=== PATIENT | male | born 1970 | race Caucasian/White ===

== ENCOUNTER 2018-05-26 10:43 | Emergency (ER) | payer OTHER, SELFPAY ==
[2018-05-26 10:44] VITALS: BP 143/69; PULSE 69; RESP 18; TEMP 36.6; O2SAT 96; BMI 44.2
--- NOTE | 2018-05-26 12:25 | RAD_ITS ---
STUDY: X-RAY - LEFT HUMERUS REASON FOR EXAM: Male, 47 years old. Shoulder pain following a fall. TECHNIQUE: 4 view(s) of the humerus. COMPARISON: None. FINDINGS: There is a nondisplaced impacted fracture of the surgical neck of the proximal humerus. Soft tissue swelling. RAD/Humerus min 2 Views IMPRESSION: There is a nondisplaced impacted fracture of the surgical neck of the proximal humerus. Electronically Signed: George Duncan MD at 13:29 EDT Tel [phone], Service support ,
--- NOTE | 2018-05-26 13:05 | ED.VISSUMM ---
- ER Visit Summary Date of Service: 05/26/18 Chief Complaint: Shoulder injury History of Present Illness: The patient is a 47 M who states that he was at work today when he tripped and fell. States that he was arms out and injured his left shoulder. He denies any other injuries. Patient is right-handed. EMS administered fentanyl and sling and swath. Physical Examination: Afebrile vital signs are stable Gen: Well-nourished well-developed Head: Normocephalic atraumatic Eyes: Perrl EOMI ENT: TMs clear no rhinorrhea moist mucous membranes Neck: Supple no lymphadenopathy no JVD nontender CVS: Regular rate rhythm no murmurs normal S1-S2 Respiratory: No distress clear to auscultation bilaterally chest nontender Abdomen: Soft nontender nondistended normal bowel sounds no masses Back: Nontender Extremity: Left shoulder shows limited range of motion and tenderness to. No obvious dislocation. He is neurovascular intact distally. Skin: Normal color no rash Neuro: alert orientated ?3 CN II-XII intact normal strength sensation reflexes gait cerebellar Psych: Normal affect normal mood Test Results: X-rays revealed a proximal humerus fracture Emergency Department Course and Treatment: She received oxycodone and sling. He will be referred to no [facility] as he does not have one. Dr. Noel on-call today. Impression: 1. Closed left proximal humerus fracture This note was generated with [employer] dictation software. It may contain incorrect words, spelling, and punctuation that were not noted in review of the chart prior to signing ED Disposition - Plan for ED Patient: Disposition: Home or Assisted Living Chief Complaint: Upper Extremity Injury Instructions: ED Fx Shoulder Prescriptions: Oxycodone [Oxyir] 5 - 10 mg PO Q6H PRN PRN 4 Days #20 tab PRN Reason: Pain Referrals: Slime Noel DO [STAFF PHYSICIAN] - (call today to schedule appointment)
--- NOTE | 2018-05-26 13:14 | ED.DCSUM_ITS ---
- ER Visit Summary Date of Service: 05/26/18 Chief Complaint: Shoulder injury History of Present Illness: The patient is a 47 M who states that he was at work today when he tripped and fell. States that he was arms out and injured his left shoulder. He denies any other injuries. Patient is right-handed. EMS administered fentanyl and sling and swath. Physical Examination: Afebrile vital signs are stable Gen: Well-nourished well-developed Head: Normocephalic atraumatic Eyes: Perrl EOMI ENT: TMs clear no rhinorrhea moist mucous membranes Neck: Supple no lymphadenopathy no JVD nontender CVS: Regular rate rhythm no murmurs normal S1-S2 Respiratory: No distress clear to auscultation bilaterally chest nontender Abdomen: Soft nontender nondistended normal bowel sounds no masses Back: Nontender Extremity: Left shoulder shows limited range of motion and tenderness to. No obvious dislocation. He is neurovascular intact distally. Skin: Normal color no rash Neuro: alert orientated ?3 CN II-XII intact normal strength sensation reflexes gait cerebellar Psych: Normal affect normal mood Test Results: X-rays revealed a proximal humerus fracture Emergency Department Course and Treatment: She received oxycodone and sling. He will be referred to no [facility] as he does not have one. Dr. Noel on-call today. Impression: 1. Closed left proximal humerus fracture This note was generated with [employer] dictation software. It may contain incorrect words, spelling, and punctuation that were not noted in review of the chart prior to signing ED Disposition - Plan for ED Patient: Disposition: Home or Assisted Living Chief Complaint: Upper Extremity Injury Instructions: ED Fx Shoulder Prescriptions: Oxycodone [Oxyir] 5 - 10 mg PO Q6H PRN PRN 4 Days #20 tab PRN Reason: Pain Referrals: Slime Noel DO [STAFF PHYSICIAN] - (call today to schedule appointment)
[2018-05-26] MEDS: oxyCODONE 5 MG Tablet 10 MG PO (13:28)
[2018-05-26 13:31] VITALS: BP 150/81; PULSE 66; RESP 16; O2SAT 99
== END 2018-05-26 13:39 | disposition home or self-care (01) ==
LOC: ED 13:31
PROVIDERS: Emergency Provider Emergency Medicine; Family Provider Internal Medicine; PCP Internal Medicine
DX: S42.215A Unspecified nondisplaced fracture of surgical neck of left humerus, initial encounter for closed fracture (principal); E66.9 Obesity, unspecified; E11.9 Type 2 diabetes mellitus without complications; I10 Essential (primary) hypertension; E78.00 Pure hypercholesterolemia, unspecified; Z79.84 Long term (current) use of oral hypoglycemic drugs; Z79.899 Other long term (current) drug therapy; W01.0XXA Fall on same level from slipping, tripping and stumbling without subsequent striking against object, initial encounter; Y93.89 Activity, other specified; Y92.89 Other specified places as the place of occurrence of the external cause; Y99.0 Civilian activity done for income or pay
CPT/HCPCS: 73060; 99284; J2405

== ENCOUNTER → 2018-06-03 08:03 | Outpatient (CLI) | payer OTHER, BC, SELFPAY ==
--- NOTE | 2018-06-03 08:05 | RAD_ITS ---
STUDY: X-RAY - LEFT SHOULDER REASON FOR EXAM: Fracture. TECHNIQUE: 2 view(s) of the shoulder. COMPARISON: Radiographs 05/26/2018. FINDINGS: There is a nondisplaced fracture of the proximal humerus involving the surgical neck of the humerus and greater and lesser tuberosities with interval development of inferior displacement of the humeral head. Normal acromioclavicular joint. Normal acromion. There is a small focus of calcific tendinitis on the AP view. Normal visualized pulmonary apex. RAD/Shoulder min 2 Views IMPRESSION: Nondisplaced proximal humeral fracture with interval development of inferior displacement of the humeral head. Electronically Signed: Chapo Martinez MD at 11:28 EDT Tel , Service support ,
== END ==
PROVIDERS: Family Provider Internal Medicine; PCP Internal Medicine; Visit Provider Orthopaedic Surgery
DX: S42.215A Unspecified nondisplaced fracture of surgical neck of left humerus, initial encounter for closed fracture (principal)
CPT/HCPCS: 73030

== ENCOUNTER → 2018-06-15 06:39 | Outpatient (CLI) | payer OTHER, SELFPAY ==
--- NOTE | 2018-06-15 06:41 | CT_ITS ---
STUDY: CT LEFT SHOULDER REASON FOR EXAM: Male, 47 years old. Fracture RADIATION DOSAGE (If Supplied By Facility): CTDIvol = ( 36.80 ) mGy, DLP = ( 790.64 ) mGycm TECHNIQUE: The patient was scanned in a multi detector CT scanner. High resolution transaxial imaging was performed without the administration of intravenous contrast material. Sagittal and coronal images were reconstructed. Individualized dose optimization techniques were used for this CT. COMPARISON: X-ray 06/03/2018 FINDINGS: There is comminuted fracture at the proximal humerus involving the neck and tuberosities. There is minimal impaction. There is minimal displacement. There is mild subluxation at the glenohumeral joint. There is no dislocation. There is no osseous destruction. The acromioclavicular joint is intact. The scapula is intact. The clavicle is intact. The periarticular soft tissue structures are intact. CT/Extremity Upper without Contra IMPRESSION: Minimally displaced, comminuted fracture of the proximal humerus involving the neck and tuberosities Essentially intact glenohumeral joint Electronically Signed: Jeermy Askew MD at 21:17 EDT Tel , Service support ,
== END ==
PROVIDERS: Family Provider Internal Medicine; PCP Internal Medicine; Visit Provider Orthopaedic Surgery
DX: S42.252A Displaced fracture of greater tuberosity of left humerus, initial encounter for closed fracture (principal); S42.262A Displaced fracture of lesser tuberosity of left humerus, initial encounter for closed fracture
CPT/HCPCS: 73200

== ENCOUNTER → 2018-07-26 08:11 | Outpatient (CLI) | payer OTHER, SELFPAY | PROVIDERS: Family Provider Internal Medicine; PCP Internal Medicine; Visit Provider Orthopaedic Surgery | DX: S42.215A Unspecified nondisplaced fracture of surgical neck of left humerus, initial encounter for closed fracture (principal) | CPT/HCPCS: 73030 ==

== ENCOUNTER → 2018-08-02 16:51 | Outpatient (CLI) | payer OTHER, SELFPAY | PROVIDERS: Family Provider Internal Medicine; PCP Internal Medicine; Visit Provider Orthopaedic Surgery | DX: S42.232A 3-part fracture of surgical neck of left humerus, initial encounter for closed fracture (principal) ==

== ENCOUNTER 2018-10-21 15:00 | Outpatient (RCR) | payer BC, SELFPAY ==
[2018-10-07 15:22] VITALS: BP 128/81; PULSE 102; RESP 18; TEMP 36.2; BMI 46.2
--- NOTE | 2018-10-07 17:52 | PCM.WC.HP ---
(1) Diabetes mellitus, insulin dependent (IDDM), uncontrolled Status: Chronic Current Visit: Yes Qualifiers: Glycemic state: with hyperglycemia Qualified Code(s): E10.65 - Type 1 diabetes mellitus with hyperglycemia Code(s): E10.65 - Type 1 diabetes mellitus with hyperglycemia (2) HTN (hypertension) Status: Chronic Current Visit: Yes Qualifiers: Hypertension type: essential hypertension Qualified Code(s): I10 - Essential (primary) hypertension Code(s): I10 - Essential (primary) hypertension (3) Hyperlipidemia Status: Chronic Current Visit: Yes Qualifiers: Hyperlipidemia type: unspecified Qualified Code(s): E78.5 - Hyperlipidemia, unspecified Code(s): E78.5 - Hyperlipidemia, unspecified (4) PAD (peripheral artery disease) Status: Chronic Current Visit: Yes Code(s): I73.9 - Peripheral vascular disease, unspecified (5) PVD (peripheral vascular disease) Status: Chronic Current Visit: Yes Code(s): I73.9 - Peripheral vascular disease, unspecified (6) Venous insufficiency of both lower extremities Status: Chronic Current Visit: Yes Code(s): I87.2 - Venous insufficiency (chronic) (peripheral) (7) Edema of both legs Status: Chronic Current Visit: Yes Code(s): R60.0 - Localized edema (8) Venous ulcers of both lower extremities Status: Acute Current Visit: Yes Code(s): I87.2 - Venous insufficiency (chronic) (peripheral); L97.919 - Non-pressure chronic ulcer of unspecified part of right lower leg with unspecified severity; L97.929 - Non-pressure chronic ulcer of unspecified part of left lower leg with unspecified severity (9) Chronic venous hypertension w/ulcer and inflammation involv both sides Status: Chronic Current Visit: Yes Code(s): I87.333 - Chronic venous hypertension (idiopathic) with ulcer and inflammation of bilateral lower extremity; L97.919 - Non-pressure chronic ulcer of unspecified part of right lower leg with unspecified severity; L97.929 - Non-pressure chronic ulcer of unspecified part of left lower leg with unspecified severity History of Present Illness Date of Service: 10/07/18 Chief Complaint: nonhealing ulcers of lower extremities b/l, edema History of Wound: David is a 48 year old male that presents to the wound center for evaluation and treatment of nonhelaing ulcers of his lower legs that have been present for approximately 4 weeks. He states that his legs became swollen and then developed blisters which itched and broke open leaving sores. He has seen his PCP and they started him on Keflex 500 mg QID and he has been taking this for 4 weeks with minimal improvement. He has also been applying antibiotic ointment. He was also started on lasix which has helped his swelling somewhat. He works at the [employer] and he is on his feet all the time there. He thinks his last A1C was in August and was 8.0%. He denies fever or chills or pain. Admits to drainage from the wounds that is clear. Past Medical History Past Medical History: Chronic Problems Diabetes mellitus, insulin dependent (IDDM), uncontrolled (Chronic) HTN (hypertension) (Chronic) Hyperlipidemia (Chronic) PAD (peripheral artery disease) (Chronic) PVD (peripheral vascular disease) (Chronic) Venous insufficiency of both lower extremities (Chronic) Edema of both legs (Chronic) Chronic venous hypertension w/ulcer and inflammation involv both sides (Chronic) Surgical History: no surgical history Allergies/Adverse Reactions: Allergies liraglutide [From Victoza] Allergy (Verified 05/26/18 10:47) Rash metformin [From Glucophage] Allergy (Verified 05/26/18 10:47) Rash Penicillins [PCN] Allergy (Verified 05/26/18 10:47) Rash Sulfa (Sulfonamide Antibiotics) Allergy (Verified 05/26/18 10:47) Rash Home Medications: Ambulatory Orders Medication Instructions Recorded Amlodipine [Norvasc] 5 mg PO DAILY 05/26/18 Losartan Potassium [Cozaar] 25 mg PO DAILY 05/26/18 Metoprolol Tartrate [Lopressor 25 mg PO BID 05/26/18 (Beta Cem)] Oxycodone [Oxyir] 5 - 10 mg PO Q6H PRN PRN 4 Days 05/26/18 #20 tab Pioglitazone [Actos] 45 mg PO DAILY 05/26/18 glipiZIDE [Glucotrol] 10 mg PO BIDAC 05/26/18 oxycodone-acetaminophen 5 mg-325 1 tab PO Q6H PRN #30 tab 06/23/18 mg tablet Keflex 500 mg PO 4X/DAY 10/07/18 Lasix 40 mg PO BID 10/07/18 Potassium Chloride 10 meq PO DAILY 10/07/18 Simvastatin 40 mg PO QHS 10/07/18 - Family History Maternal No pertinent history Paternal No pertinent history Smoking Status: Never smoker Tobacco Use: Non-smoker Alcohol: None Drugs: None Review of Systems Constitutional: Denies: Chills, Fever, Weight Change Eyes: Denies: Pain, Vision Change HEENT: Denies: Difficulty Hearing, Difficulty Swallowing, Sinus Congestion Cardiovascular: Reports: Edema. Denies: Chest Pain, Palpitations Respiratory: Denies: Cough, Shortness of Breath Gastrointestinal: Denies: Diarrhea, Nausea, Vomiting Genitourinary: Denies: Dysuria, Hematuria Skin: Reports: Wounds Endocrine: Denies: Heat/ Cold Intolerance, Polydipsia, Polyuria Hematologic/ Lymphatic: Denies: Easy Bruising, Easy Bleeding - Physical Exam Vital Signs Temp Pulse Resp BP 97.1 F L 102 H 18 128/81 H 10/07/18 15:22 10/07/18 15:22 10/07/18 15:22 10/07/18 15:22 General: Alert, Oriented x3, Cooperative, No apparent distress HEENT: Atraumatic, Normocephalic Oral: Moist Mucosa Lungs: Clear to auscultation Cardiovascular: Regular rate, Regular Rhythm Abdomen: Soft, Non Tender, Obese Extremities: Edema Skin: Ulcer/ Wound Wound Measurements and Assessment WC - Nurse 1 - General Ulcer Measurement Start: 10/07/18 15:03 Freq: Status: Active Protocol: Activity Type Activity Date Activity User E-Sign Co-Sign Detail Recorded Client Recorded Date Recorded By Document 10/07/18 15:22 MW [id number] 10/07/18 15:47 MW 10/07/18 15:22 Wound Center Nurse 1 [Ulcer Assessment] #2 LEFT DELUNA CLUSTER -Combined with other wound No -Current Size (cm) - Length 12.0 -Current Size (cm) - Width 8.5 -Current Size (cm) - Depth 0.1 -Total Square Cm 102.00 -Date of Last Picture (Recall this 10/07/18 field) -Photo Taken Yes -Epithelialization None Present -Tunneling No -Undermining/Tunneling No -Circular Undermining No -Exudate Amt None Present (0 %) -Wound Margin Flat & Intact -Granulation Amt None Present (0 %) -Granulation Quality N/A -Necrosis Amt Large (67-100%) -Necrotic Tissue Type Adherent Slough -Structure Exposed N/A -Texture (Milly-wound Skin Appearance) Assessed Localized Edema Scarring -Moisture (Milly-wound Skin Appearance Assessed ) Dry/Scaly -Color (Milly-wound Skin Appearance) Assessed Rubor -Temperature (Milly-wound Skin No Abnormality Appearance) (Pt Warm) -Tenderness on Palpation (Milly-wound No Skin Appearance) -Ulcer Cleansing Rinsed/ Irrigated with Saline -Foul Odor after Cleansing No -Anesthetic Used 4% Lidocaine Solution #1 RIGHT DELUNA CLUSTER -Combined with other wound No -Current Size (cm) - Length 20.0 -Current Size (cm) - Width 11.5 -Current Size (cm) - Depth 0.1 -Total Square Cm 230.00 -Date of Last Picture (Recall this 10/07/18 field) -Photo Taken Yes -Epithelialization None Present -Undermining/Tunneling No -Circular Undermining No -Exudate Amt Small (1-33%) -Exudate Type Serosanguineous -Wound Margin Flat & Intact -Granulation Amt None Present (0 %) -Granulation Quality N/A -Slough/Fibrin Yes -Necrosis Amt Large (67-100%) -Structure Exposed N/A -Texture (Milly-wound Skin Appearance) Assessed Localized Edema Scarring -Moisture (Milly-wound Skin Appearance Assessed ) Dry/Scaly -Color (Milly-wound Skin Appearance) Assessed Rubor -Temperature (Milly-wound Skin No Abnormality Appearance) (Pt Warm) -Tenderness on Palpation (Milly-wound No Skin Appearance) -Ulcer Cleansing Rinsed/ Irrigated with Saline -Foul Odor after Cleansing No -Anesthetic Used 4% Lidocaine Solution [Edema Assessment] -Lower Limb Edema Present Yes -Right Calf (cm) 49.0 -Right Ankle (cm) 27.5 -Left Calf (cm) 47.6 -Point of Measurement (cm from the 27.0 medial instep) WC - Nurse 2 - General Ulcer CM Notes Start: 10/07/18 15:03 Freq: Status: Active Protocol: Activity Type Activity Date Activity User E-Sign Co-Sign Detail Recorded Client Recorded Date Recorded By Document 10/07/18 16:05 [id number] 10/07/18 16:27 10/07/18 16:05 Wound Center Nurse 2 [Procedure/Treatment] #2 LEFT DELUNA CLUSTER -Time 16:05 -Correct Patient Yes -Correct Side, Site, Position Yes -Correct Procedure Yes -Procedure Performed Yes -Type of Procedure Debridement -Clinical Debridement Subcutaneous -Post Debridement Size (cm) - Length 8.3 -Post Debridement Size (cm) - Width 5.0 -Post Debridement Size (cm) - Depth 0.1 -Total Square Cm 41.50 -Wound/Ulcer Outcome Not Healed -Ulcer Cleansing Rinsed/ Irrigated with Saline -Foul Odor after Cleansing No -Bioengineered Tissue No -Bleeding Controlled with NA -Treatment Response Procedure Tolerated Well #1 RIGHT DELUNA CLUSTER -Time 16:05 -Correct Patient Yes -Correct Side, Site, Position Yes -Correct Procedure Yes -Procedure Performed Yes -Type of Procedure Debridement -Clinical Debridement Subcutaneous -Post Debridement Size (cm) - Length 10.5 -Post Debridement Size (cm) - Width 10.2 -Post Debridement Size (cm) - Depth 0.2 -Total Square Cm 107.10 -Wound/Ulcer Outcome Not Healed -Ulcer Cleansing Rinsed/ Irrigated with Saline -Foul Odor after Cleansing No -Bioengineered Tissue No -Bleeding Controlled with NA -Treatment Response Procedure Tolerated Well [See Physician Procedure note for Specifics] Pain Scale: 0-10 Numeric [Pain] -Is Patient Pain Free? Yes Psych/Mental Status: Normal Affect, Appropriate Debridement Note Post-Debridement Measurements/Treatment WC - Nurse 2 - General Ulcer CM Notes Start: 10/07/18 15:03 Freq: Status: Active Protocol: Activity Type Activity Date Activity User E-Sign Co-Sign Detail Recorded Client Recorded Date Recorded By Document 10/07/18 16:05 [id number] 10/07/18 16:27 10/07/18 16:05 Wound Center Nurse 2 #2 LEFT DELUNA CLUSTER -Time 16:05 -Correct Patient Yes -Correct Side, Site, Position Yes -Correct Procedure Yes -Procedure Performed Yes -Type of Procedure Debridement -Clinical Debridement Subcutaneous -Post Debridement Size (cm) - Length 8.3 -Post Debridement Size (cm) - Width 5.0 -Post Debridement Size (cm) - Depth 0.1 -Total Square Cm 41.50 -Wound/Ulcer Outcome Not Healed -Ulcer Cleansing Rinsed/ Irrigated with Saline -Foul Odor after Cleansing No -Bioengineered Tissue No -Bleeding Controlled with NA -Treatment Response Procedure Tolerated Well #1 RIGHT DELUNA CLUSTER -Time 16:05 -Correct Patient Yes -Correct Side, Site, Position Yes -Correct Procedure Yes -Procedure Performed Yes -Type of Procedure Debridement -Clinical Debridement Subcutaneous -Post Debridement Size (cm) - Length 10.5 -Post Debridement Size (cm) - Width 10.2 -Post Debridement Size (cm) - Depth 0.2 -Total Square Cm 107.10 -Wound/Ulcer Outcome Not Healed -Ulcer Cleansing Rinsed/ Irrigated with Saline -Foul Odor after Cleansing No -Bioengineered Tissue No -Bleeding Controlled with NA -Treatment Response Procedure Tolerated Well Pain Scale: 0-10 Numeric Is Patient Pain Free? Yes Wound debrided: left deluna cluster Laterality: Left Type of Debridement: Excisional debridement Anesthesia Used: 4% Lidocaine Solution Depth: Down to and including healthy tissue, in the subcutaneous layer Percentage of wound debrided: 100 Instrument Used: 7mm curette Tissue Removed: yellow slough, devitalized tissue Severity: Fat Layer Exposed Amount of bleeding with debridement: Mild Bleeding Controlled with: Compression and gauze Patient tolerated procedure well - Additional Wound Wound debrided: right deluna cluster Laterality: Right Type of Debridement: Excisional debridement Anesthesia Used: 4% Lidocaine Solution Depth: Down to and including healthy tissue, in the subcutaneous layer Percentage of wound debrided: 100 Instrument Used: 3mm curette Tissue Removed: yellow slough, devitalized tissue Severity: Fat Layer Exposed Amount of bleeding with debridement: Mild Bleeding Controlled with: Compression and gauze Patient tolerated procedure: Patient tolerated procedure well Assessment/Plan Active Problems Diabetes mellitus, insulin dependent (IDDM), uncontrolled (Chronic) HTN (hypertension) (Chronic) Hyperlipidemia (Chronic) PAD (peripheral artery disease) (Chronic) PVD (peripheral vascular disease) (Chronic) Venous insufficiency of both lower extremities (Chronic) Edema of both legs (Chronic) Venous ulcers of both lower extremities (Acute) Chronic venous hypertension w/ulcer and inflammation involv both sides (Chronic) Assessment: nonhealing venous ulcers of b/l lower extremities. Edema b/l lower extremities. IDDM Plan: David's wounds were evaluated and debrided today. He will use Aquacel extra to his wounds changed daily and will use single layer tubigrips for compression at this time. Vascular studies were ordered and depending on results, he may benefit from 3M compression or UNNA boot compression. Advised him to continue his current antibiotics until completed. Wound culture done today and will treat based on results. Discussed importance of avoiding idle sitting and standing to treat his ulcers and encouraged to elevate his feet at or above the level of his heart as much as possible. Encouraged weight loss, tight glucose control as well. F/U in 2 weeks.
--- NOTE | 2018-10-14 12:46 | VDLE_ITS ---
Reason For Study: Non-healing wound RIGHT LEFT CFV is compressible, spontaneous, phasic, CFV is compressible, spontaneous, phasic, competent and demonstrates normal competent, and demonstrates normal augmentation. augmentation. FV is compressible, spontaneous, phasic, FV is compressible, spontaneous, phasic, competent and demonstrates normal competent and demonstrates normal augmentation. augmentation. POP V is compressible, spontaneous, phasic, POP V is compressible, spontaneous, phasic, competent and demonstrates normal competent and demonstrates normal augmentation. augmentation. T/P Trunk is compressible. T/P Trunk is compressible. PTV is compressible. PTV is compressible. RT PerV is compressible. LT PerV is compressible. SFJ is INCOMPETENT for greater than .5 sec SFJ is INCOMPETENT for greater than .5 sec GSV is competent above knee GSV is competent GSV is INCOMPETENT belowknee with reflux SSV is competent. greater than .5 sec and diameter of .35 x .37 cm SSV is too small to assess. Procedure Exam performed in department. A preliminary report was called and/or faxed to [facility]. <> Interpretation Summary Deep veins of the lower extremities are bilaterally patent and compressible segmentally. There is no evidence of deep vein thrombosis on either side. Valvular competence appears intact within the proximal deep venous systems bilaterally. The greater saphenous veins appear bilaterally patent and compressible segmentally. Sapheno-femoral junctions are bilaterally incompetent . The right greater saphenous vein appears competent above the knee. The right greater saphenous vein appears incompetent below the knee. The left greater saphenous vein appears segmentally competent. The right small saphenous vein is too small to assess. The left small saphenous vein is patent and competent. Ordering Physician: Claudia Mckeon Referring Physician: Claudia Mckeon Performed By: Jory Naylor RVT
--- NOTE | 2018-10-19 16:00 | LEAS ---
Arterial Study - Arterial Study Arterial Study: This is a 48-year-old male with a history of hypertension, hyperlipidemia, and diabetes mellitus. The patient presents with a chronic nonhealing wound to the right lower extremity. Suspecting the presence of atherosclerotic peripheral arterial occlusive disease, the patient was brought to the noninvasive vascular laboratory at this time for the purpose of bilateral noninvasive lower extremity arterial assessment. Doppler signal assessment was used to evaluate the pulses at ankle level bilaterally. The posterior tibial and dorsalis pedis pulses were triphasic bilaterally. Segmental limb pressures were obtained bilaterally. The right ankle pressure, as determined by posterior tibial pulse, was measured at 133 mmHg. The right ankle pressure, as determined by dorsalis pedis pulse, was measured at 139 mmHg. The right digital pressure was measured at 120 mmHg. The left ankle pressure, as determined by posterior tibial pulse, was measured at 135 mmHg. The left ankle pressure, as determined by dorsalis pedis pulse, was measured at 150 mmHg. The left digital pressure was measured at 116 mmHg. Pulse?volume recordings were obtained bilaterally and segmentally. Waveform amplitudes appeared to be satisfactory at all levels bilaterally, including low thigh, calf, ankle, and digital levels. Resting ankle?brachial indices were calculated bilaterally. The resting right ankle?brachial index was calculated to be 1.05. the resting left ankle?brachial index was calculated to be 1.13. Digital?brachial indices were calculated bilaterally. The right digital-brachial index was calculated to be 0.90. The left digital-brachial index was calculated to be 0.87. Impression: Based upon the findings of this resting noninvasive lower extremity arterial study, there is no evidence of significant atherosclerotic peripheral arterial occlusive disease in the lower extremities bilaterally. Triphasic waveforms were noted at ankle level bilaterally. Resting ankle?brachial indices were bilaterally normal. Digital-brachial index these were also normal bilaterally. In summary, this represents a normal resting noninvasive lower extremity arterial study bilaterally.
--- NOTE | 2018-10-19 16:06 | LEAS_ITS ---
Arterial Study - Arterial Study Arterial Study: This is a 48-year-old male with a history of hypertension, hyperlipidemia, and diabetes mellitus. The patient presents with a chronic nonhealing wound to the right lower extremity. Suspecting the presence of atherosclerotic peripheral arterial occlusive disease, the patient was brought to the noninvasive vascular laboratory at this time for the purpose of bilateral noninvasive lower extremity arterial assessment. Doppler signal assessment was used to evaluate the pulses at ankle level bilaterally. The posterior tibial and dorsalis pedis pulses were triphasic bilaterally. Segmental limb pressures were obtained bilaterally. The right ankle pressure, as determined by posterior tibial pulse, was measured at 133 mmHg. The right ankle pressure, as determined by dorsalis pedis pulse, was measured at 139 mmHg. The right digital pressure was measured at 120 mmHg. The left ankle pressure, as determined by posterior tibial pulse, was measured at 135 mmHg. The left ankle pressure, as determined by dorsalis pedis pulse, was measured at 150 mmHg. The left digital pressure was measured at 116 mmHg. Pulse?volume recordings were obtained bilaterally and segmentally. Waveform amplitudes appeared to be satisfactory at all levels bilaterally, including low thigh, calf, ankle, and digital levels. Resting ankle?brachial indices were calculated bilaterally. The resting right ankle?brachial index was calculated to be 1.05. the resting left ankle?brachial index was calculated to be 1.13. Digital?brachial indices were calculated bilaterally. The right digital- brachial index was calculated to be 0.90. The left digital-brachial index was calculated to be 0.87. Impression: Based upon the findings of this resting noninvasive lower extremity arterial study, there is no evidence of significant atherosclerotic peripheral arterial occlusive disease in the lower extremities bilaterally. Triphasic waveforms were noted at ankle level bilaterally. Resting ankle?brachial indices were bilaterally normal. Digital-brachial index these were also normal glenn aterally. In summary, this represents a normal resting noninvasive lower extremity arterial study bilaterally.
[2018-10-21 15:10] VITALS: BP 121/78; PULSE 87; RESP 16; TEMP 36.4; BMI 46.2
--- NOTE | 2018-10-21 18:52 | PCM.WC.PN ---
(1) Diabetes mellitus, insulin dependent (IDDM), uncontrolled Status: Chronic Current Visit: Yes Qualifiers: Glycemic state: with hyperglycemia Qualified Code(s): E10.65 - Type 1 diabetes mellitus with hyperglycemia Code(s): E10.65 - Type 1 diabetes mellitus with hyperglycemia (2) HTN (hypertension) Status: Chronic Current Visit: Yes Qualifiers: Hypertension type: essential hypertension Qualified Code(s): I10 - Essential (primary) hypertension Code(s): I10 - Essential (primary) hypertension (3) Hyperlipidemia Status: Chronic Current Visit: Yes Qualifiers: Hyperlipidemia type: unspecified Qualified Code(s): E78.5 - Hyperlipidemia, unspecified Code(s): E78.5 - Hyperlipidemia, unspecified (4) PAD (peripheral artery disease) Status: Chronic Current Visit: Yes Code(s): I73.9 - Peripheral vascular disease, unspecified (5) PVD (peripheral vascular disease) Status: Chronic Current Visit: Yes Code(s): I73.9 - Peripheral vascular disease, unspecified (6) Venous insufficiency of both lower extremities Status: Chronic Current Visit: Yes Code(s): I87.2 - Venous insufficiency (chronic) (peripheral) (7) Edema of both legs Status: Chronic Current Visit: Yes Code(s): R60.0 - Localized edema (8) Venous ulcers of both lower extremities Status: Acute Current Visit: Yes Code(s): I87.2 - Venous insufficiency (chronic) (peripheral); L97.919 - Non-pressure chronic ulcer of unspecified part of right lower leg with unspecified severity; L97.929 - Non-pressure chronic ulcer of unspecified part of left lower leg with unspecified severity (9) Chronic venous hypertension w/ulcer and inflammation involv both sides Status: Chronic Current Visit: Yes Code(s): I87.333 - Chronic venous hypertension (idiopathic) with ulcer and inflammation of bilateral lower extremity; L97.919 - Non-pressure chronic ulcer of unspecified part of right lower leg with unspecified severity; L97.929 - Non-pressure chronic ulcer of unspecified part of left lower leg with unspecified severity Type of Wound Date of Service: 10/21/18 Chief Complaint: nonhealing ulcers of lower extremities b/l, edema History of Wound: David is a 48 year old male that presents to the wound center for evaluation and treatment of nonhelaing ulcers of his lower legs that have been present for approximately 4 weeks. He states that his legs became swollen and then developed blisters which itched and broke open leaving sores. He has seen his PCP and they started him on Keflex 500 mg QID and he has been taking this for 4 weeks with minimal improvement. He has also been applying antibiotic ointment. He was also started on lasix which has helped his swelling somewhat. 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 He thinks his last A1C was in August and was 8.0%. He denies fever or chills or pain. Admits to drainage from the wounds that is clear. Progress of Wound: Kian is here for follow up of venous ulcers. He underwent vascular testing which showed normal arterial circulation but incompetence of veins in his lower extremities bilaterally right > left. He has been tolerating dressings and compression. There has been less drainage. He denies fever or chills. - Physical Exam Vital Signs Temp Pulse Resp BP 97.5 F L 87 16 121/78 H 10/21/18 15:10 10/21/18 15:10 10/21/18 15:10 10/21/18 15:10 General: Alert, Oriented x3, Cooperative, No apparent distress HEENT: Atraumatic, Normocephalic Oral: Moist Mucosa Abdomen: Obese Extremities: Edema Skin: Ulcer/ Wound Wound Measurements and Assessment WC - Nurse 1 - General Ulcer Measurement Start: 10/07/18 15:03 Freq: Status: Active Protocol: Activity Type Activity Date Activity User E-Sign Co-Sign Detail Recorded Client Recorded Date Recorded By Document 10/21/18 15:10 AN [id number] 10/21/18 15:20 AN 10/21/18 15:10 Wound Center Nurse 1 [Ulcer Assessment] #2 LEFT DELUNA CLUSTER -Current Size (cm) - Length 6.5 -Current Size (cm) - Width 5.0 -Current Size (cm) - Depth 0.1 -Total Square Cm 32.50 -Photo Taken No -Epithelialization Small 1-33% -Exudate Amt Small (1-33%) -Exudate Type Serous -Wound Margin Flat & Intact -Granulation Amt Large (67-100%) -Granulation Quality Red -Slough/Fibrin Yes -Necrosis Amt Small (1-33%) -Necrotic Tissue Type Adherent Slough -Structure Exposed Fat Layer Exposed -Texture (Milly-wound Skin Appearance) No Abnormality Assessed -Moisture (Milly-wound Skin Appearance Dry/Scaly ) -Color (Milly-wound Skin Appearance) Assessed Erythema -Temperature (Milly-wound Skin No Abnormality Appearance) (Pt Warm) -Tenderness on Palpation (Milly-wound No Skin Appearance) -Ulcer Cleansing Rinsed/ Irrigated with Saline -Foul Odor after Cleansing No -Anesthetic Used 4% Lidocaine Solution #1 RIGHT DELUNA CLUSTER -Current Size (cm) - Length 10.8 -Current Size (cm) - Width 5.5 -Current Size (cm) - Depth 0.1 -Total Square Cm 59.40 -Photo Taken No -Epithelialization Small 1-33% -Classification - Thickness Full Thickness without Exposed Support Structure -Exudate Amt Small (1-33%) -Exudate Type Serous -Wound Margin Flat & Intact -Granulation Amt Large (67-100%) -Granulation Quality Red -Slough/Fibrin Yes -Necrosis Amt Small (1-33%) -Necrotic Tissue Type Adherent Slough -Structure Exposed Fat Layer Exposed -Texture (Milly-wound Skin Appearance) Assessed Localized Edema -Moisture (Milly-wound Skin Appearance Assessed ) Dry/Scaly -Color (Milly-wound Skin Appearance) Assessed Erythema -Temperature (Milly-wound Skin No Abnormality Appearance) (Pt Warm) -Tenderness on Palpation (Milly-wound No Skin Appearance) -Ulcer Cleansing Rinsed/ Irrigated with Saline -Foul Odor after Cleansing No -Anesthetic Used 4% Lidocaine Solution [Edema Assessment] -Right Calf (cm) 49 -Right Ankle (cm) 26 -Left Calf (cm) 48.5 -Left Ankle (cm) 26.4 WC - Nurse 2 - General Ulcer CM Notes Start: 10/07/18 15:03 Freq: Status: Active Protocol: Activity Type Activity Date Activity User E-Sign Co-Sign Detail Recorded Client Recorded Date Recorded By Document 10/21/18 16:14 [id number] 10/21/18 16:26 CS 10/21/18 16:14 Wound Center Nurse 2 [Procedure/Treatment] #2 LEFT DELUNA CLUSTER -Time 16:15 -Correct Patient Yes -Correct Side, Site, Position Yes -Correct Procedure Yes -Procedure Performed Yes -Type of Procedure Debridement -Clinical Debridement Subcutaneous -Post Debridement Size (cm) - Length 4.5 -Post Debridement Size (cm) - Width 4.5 -Post Debridement Size (cm) - Depth 0.1 -Total Square Cm 20.25 -Wound/Ulcer Outcome Not Healed -Ulcer Cleansing Rinsed/ Irrigated with Saline -Foul Odor after Cleansing No -Bioengineered Tissue No -Bleeding Controlled with NA -Offloading No -Treatment Response Procedure Tolerated Well #1 RIGHT DELUNA CLUSTER -Time 16:16 -Correct Patient Yes -Correct Side, Site, Position Yes -Correct Procedure Yes -Procedure Performed Yes -Type of Procedure Debridement -Clinical Debridement Subcutaneous -Post Debridement Size (cm) - Length 10.5 -Post Debridement Size (cm) - Width 5.5 -Post Debridement Size (cm) - Depth 0.1 -Total Square Cm 57.75 -Wound/Ulcer Outcome Not Healed -Ulcer Cleansing Rinsed/ Irrigated with Saline -Foul Odor after Cleansing No -Bioengineered Tissue No -Bleeding Controlled with NA -Offloading No [See Physician Procedure note for Specifics] Pain Scale: 0-10 Numeric [Pain] -Is Patient Pain Free? Yes Psych/Mental Status: Normal Affect, Appropriate Debridement Note Post-Debridement Measurements/Treatment WC - Nurse 2 - General Ulcer CM Notes Start: 10/07/18 15:03 Freq: Status: Active Protocol: Activity Type Activity Date Activity User E-Sign Co-Sign Detail Recorded Client Recorded Date Recorded By Document 10/07/18 16:05 [id number] 10/07/18 16:27 CS Document 10/21/18 16:14 [id number] 10/21/18 16:26 10/07/18 10/21/18 16:05 16:14 Wound Center Nurse 2 #2 LEFT DELUNA CLUSTER -Time 16:05 16:15 -Correct Patient Yes Yes -Correct Side, Site, Position Yes Yes -Correct Procedure Yes Yes -Procedure Performed Yes Yes -Type of Procedure Debridement Debridement -Clinical Debridement Subcutaneous Subcutaneous -Post Debridement Size (cm) - Length 8.3 4.5 -Post Debridement Size (cm) - Width 5.0 4.5 -Post Debridement Size (cm) - Depth 0.1 0.1 -Total Square Cm 41.50 20.25 -Wound/Ulcer Outcome Not Healed Not Healed -Ulcer Cleansing Rinsed/ Rinsed/ Irrigated with Irrigated with Saline Saline -Foul Odor after Cleansing No No -Bioengineered Tissue No No -Bleeding Controlled with NA NA -Offloading No -Treatment Response Procedure Procedure Tolerated Well Tolerated Well #1 RIGHT DELUNA CLUSTER -Time 16:05 16:16 -Correct Patient Yes Yes -Correct Side, Site, Position Yes Yes -Correct Procedure Yes Yes -Procedure Performed Yes Yes -Type of Procedure Debridement Debridement -Clinical Debridement Subcutaneous Subcutaneous -Post Debridement Size (cm) - Length 10.5 10.5 -Post Debridement Size (cm) - Width 10.2 5.5 -Post Debridement Size (cm) - Depth 0.2 0.1 -Total Square Cm 107.10 57.75 -Wound/Ulcer Outcome Not Healed Not Healed -Ulcer Cleansing Rinsed/ Rinsed/ Irrigated with Irrigated with Saline Saline -Foul Odor after Cleansing No No -Bioengineered Tissue No No -Bleeding Controlled with NA NA -Offloading No -Treatment Response Procedure Tolerated Well Pain Scale: 0-10 Numeric Is Patient Pain Free? Yes Yes Wound debrided: left deluna cluster Laterality: Left Type of Debridement: Excisional debridement Anesthesia Used: 4% Lidocaine Solution Depth: Down to and including healthy tissue, in the subcutaneous layer Percentage of wound debrided: 70 Instrument Used: 5mm curette Tissue Removed: yellow slough, devitalized tissue Severity: Fat Layer Exposed Amount of bleeding with debridement: Mild Bleeding Controlled with: Compression and gauze Patient tolerated procedure well - Additional Wound Wound debrided: right deluna Laterality: Right Type of Debridement: Excisional debridement Anesthesia Used: 4% Lidocaine Solution Depth: Down to and including healthy tissue, in the subcutaneous layer Percentage of wound debrided: 30 Instrument Used: 5mm curette Tissue Removed: yellow slough, devitalized tissue Severity: Fat Layer Exposed Amount of bleeding with debridement: Mild Bleeding Controlled with: Compression and gauze Patient tolerated procedure: Patient tolerated procedure well Assessment/Plan Active Problems Diabetes mellitus, insulin dependent (IDDM), uncontrolled (Chronic) HTN (hypertension) (Chronic) Hyperlipidemia (Chronic) PAD (peripheral artery disease) (Chronic) PVD (peripheral vascular disease) (Chronic) Venous insufficiency of both lower extremities (Chronic) Edema of both legs (Chronic) Venous ulcers of both lower extremities (Acute) Chronic venous hypertension w/ulcer and inflammation involv both sides (Chronic) Assessment: nonhealing venous ulcers of b/l lower extremities. Edema b/l lower extremities. IDDM Plan: David's wounds were evaluated and debrided today. He will continue to use Aquacel extra to his wounds changed daily and will increase compression to double layer tubigrips. Vascular referral placed due to venous incompetence. Discussed importance of avoiding idle sitting and standing to treat his ulcers and encouraged to elevate his feet at or above the level of his heart as much as possible. Encouraged weight loss, tight glucose control as well. F/U in 1 week.
--- NOTE | 2018-10-21 18:57 | PN.PCM_ITS ---
(1) Diabetes mellitus, insulin dependent (IDDM), uncontrolled Status: Chronic Current Visit: Yes Qualifiers: Glycemic state: with hyperglycemia Qualified Code(s): E10.65 - Type 1 diabetes mellitus with hyperglycemia Code(s): E10.65 - Type 1 diabetes mellitus with hyperglycemia (2) HTN (hypertension) Status: Chronic Current Visit: Yes Qualifiers: Hypertension type: essential hypertension Qualified Code(s): I10 - Essential (primary) hypertension Code(s): I10 - Essential (primary) hypertension (3) Hyperlipidemia Status: Chronic Current Visit: Yes Qualifiers: Hyperlipidemia type: unspecified Qualified Code(s): E78.5 - Hyperlipidemia, unspecified Code(s): E78.5 - Hyperlipidemia, unspecified (4) PAD (peripheral artery disease) Status: Chronic Current Visit: Yes Code(s): I73.9 - Peripheral vascular disease, unspecified (5) PVD (peripheral vascular disease) Status: Chronic Current Visit: Yes Code(s): I73.9 - Peripheral vascular disease, unspecified (6) Venous insufficiency of both lower extremities Status: Chronic Current Visit: Yes Code(s): I87.2 - Venous insufficiency (chronic) (peripheral) (7) Edema of both legs Status: Chronic Current Visit: Yes Code(s): R60.0 - Localized edema (8) Venous ulcers of both lower extremities Status: Acute Current Visit: Yes Code(s): I87.2 - Venous insufficiency (chronic) (peripheral); L97.919 - Non-pressure chronic ulcer of unspecified part of right lower leg with unspecified severity; L97.929 - Non-pressure chronic ulcer of unspecified part of left lower leg with unspecified severity (9) Chronic venous hypertension w/ulcer and inflammation involv both sides Status: Chronic Current Visit: Yes Code(s): I87.333 - Chronic venous hypertension (idiopathic) with ulcer and inflammation of bilateral lower extremity; L97.919 - Non-pressure chronic ulcer of unspecified part of right lower leg with unspecified severity; L97.929 - Non-pressure chronic ulcer of unspecified part of left lower leg with unspecified severity Type of Wound Date of Service: 10/21/18 Chief Complaint: nonhealing ulcers of lower extremities b/l, edema History of Wound: David is a 48 year old male that presents to the wound center for evaluation and treatment of nonhelaing ulcers of his lower legs that have been present for approximately 4 weeks. He states that his legs became swollen and then developed blisters which itched and broke open leaving sores. He has seen his PCP and they started him on Keflex 500 mg QID and he has been taking this for 4 weeks with minimal improvement. He has also been applying antibiotic ointment. He was also started on lasix which has helped his swelling somewhat. 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 He thinks his last A1C was in August and was 8.0%. He denies fever or chills or pain. Admits to drainage from the wounds that is cl ear. Progress of Wound: Kian is here for follow up of venous ulcers. He underwent vascular testing which showed normal arterial circulation but incompetence of veins in his lower extremities bilaterally right > left. He has been tolerating dressings and compression. There has been less drainage. He denies fever or chills. - Physical Exam Vital Signs Temp Pulse Resp BP 97.5 F L 87 16 121/78 H 10/21/18 15:10 10/21/18 15:10 10/21/18 15:10 10/21/18 15:10 General: Alert, Oriented x3, Cooperative, No apparent distress HEENT: Atraumatic, Normocephalic Oral: Moist Mucosa Abdomen: Obese Extremities: Edema Skin: Ulcer/ Wound Wound Measurements and Assessment WC - Nurse 1 - General Ulcer Measurement Start: 10/07/18 15:03 Freq: Status: Active Protocol: Activity Type Activity Date Activity User E-Sign Co-Sign Detail Recorded Client Recorded Date Recorded By Document 10/21/18 15:10 AN [id number] 10/21/18 15:20 AN 10/21/18 15:10 Wound Center Nurse 1 [Ulcer Assessment] #2 LEFT DELUNA CLUSTER -Current Size (cm) - Length 6.5 -Current Size (cm) - Width 5.0 -Current Size (cm) - Depth 0.1 -Total Square Cm 32.50 -Photo Taken No -Epithelialization Small 1-33% -Exudate Amt Small (1-33%) -Exudate Type Serous -Wound Margin Flat & Intact -Granulation Amt Large (67-100%) -Granulation Quality Red -Slough/Fibrin Yes -Necrosis Amt Small (1-33%) -Necrotic Tissue Type Adherent Slough -Structure Exposed Fat Layer Exposed -Texture (Milly-wound Skin Appearance) No Abnormality Assessed -Moisture (Milly-wound Skin Appearance Dry/Scaly ) -Color (Milly-wound Skin Appearance) Assessed Erythema -Temperature (Milly-wound Skin No Abnormality Appearance) (Pt Warm) -Tenderness on Palpation (Milly-wound No Skin Appearance) -Ulcer Cleansing Rinsed/ Irrigated with Saline -Foul Odor after Cleansing No -Anesthetic Used 4% Lidocaine Solution #1 RIGHT DELUNA CLUSTER -Current Size (cm) - Length 10.8 -Current Size (cm) - Width 5.5 -Current Size (cm) - Depth 0.1 -Total Square Cm 59.40 -Photo Taken No -Epithelialization Small 1-33% -Classification - Thickness Full Thickness without Exposed Support Structure -Exudate Amt Small (1-33%) -Exudate Type Serous -Wound Margin Flat & Intact -Granulation Amt Large (67-100%) -Granulation Quality Red -Slough/Fibrin Yes -Necrosis Amt Small (1-33%) -Necrotic Tissue Type Adherent Slough -Structure Exposed Fat Layer Exposed -Texture (Milly-wound Skin Appearance) Assessed Localized Edema -Moisture (Milly-wound Skin Appearance Assessed ) Dry/Scaly -Color (Milly-wound Skin Appearance) Assessed Erythema -Temperature (Milly-wound Skin No Abnormality Appearance) (Pt Warm) -Tenderness on Palpation (Milly-wound No Skin Appearance) -Ulcer Cleansing Rinsed/ Irrigated with Saline -Foul Odor after Cleansing No -Anesthetic Used 4% Lidocaine Solution [Edema Assessment] -Right Calf (cm) 49 -Right Ankle (cm) 26 -Left Calf (cm) 48.5 -Left Ankle (cm) 26.4 WC - Nurse 2 - General Ulcer CM Notes Start: 10/07/18 15:03 Freq: Status: Active Protocol: Activity Type Activity Date Activity User E-Sign Co-Sign Detail Recorded Client Recorded Date Recorded By Document 10/21/18 16:14 [id number] 10/21/18 16:26 10/21/18 16:14 Wound Center Nurse 2 [Procedure/Treatment] #2 LEFT DELUNA CLUSTER -Time 16:15 -Correct Patient Yes -Correct Side, Site, Position Yes -Correct Procedure Yes -Procedure Performed Yes -Type of Procedure Debridement -Clinical Debridement Subcutaneous -Post Debridement Size (cm) - Length 4.5 -Post Debridement Size (cm) - Width 4.5 -Post Debridement Size (cm) - Depth 0.1 -Total Square Cm 20.25 -Wound/Ulcer Outcome Not Healed -Ulcer Cleansing Rinsed/ Irrigated with Saline -Foul Odor after Cleansing No -Bioengineered Tissue No -Bleeding Controlled with NA -Offloading No -Treatment Response Procedure Tolerated Well #1 RIGHT DELUNA CLUSTER -Time 16:16 -Correct Patient Yes -Correct Side, Site, Position Yes -Correct Procedure Yes -Procedure Performed Yes -Type of Procedure Debridement -Clinical Debridement Subcutaneous -Post Debridement Size (cm) - Length 10.5 -Post Debridement Size (cm) - Width 5.5 -Post Debridement Size (cm) - Depth 0.1 -Total Square Cm 57.75 -Wound/Ulcer Outcome Not Healed -Ulcer Cleansing Rinsed/ Irrigated with Saline -Foul Odor after Cleansing No -Bioengineered Tissue No -Bleeding Controlled with NA -Offloading No [See Physician Procedure note for Specifics] Pain Scale: 0-10 Numeric [Pain] -Is Patient Pain Free? Yes Psych/Mental Status: Normal Affect, Appropriate Debridement Note Post-Debridement Measurements/Treatment WC - Nurse 2 - General Ulcer CM Notes Start: 10/07/18 15:03 Freq: Status: Active Protocol: Activity Type Activity Date Activity User E-Sign Co-Sign Detail Recorded Client Recorded Date Recorded By Document 10/07/18 16:05 [id number] 10/07/18 16:27 CS Document 10/21/18 16:14 [id number] 10/21/18 16:26 10/07/18 10/21/18 16:05 16:14 Wound Center Nurse 2 #2 LEFT DELUNA CLUSTER -Time 16:05 16:15 -Correct Patient Yes Yes -Correct Side, Site, Position Yes Yes -Correct Procedure Yes Yes -Procedure Performed Yes Yes -Type of Procedure Debridement Debridement -Clinical Debridement Subcutaneous Subcutaneous -Post Debridement Size (cm) - Length 8.3 4.5 -Post Debridement Size (cm) - Width 5.0 4.5 -Post Debridement Size (cm) - Depth 0.1 0.1 -Total Square Cm 41.50 20.25 -Wound/Ulcer Outcome Not Healed Not Healed -Ulcer Cleansing Rinsed/ Rinsed/ Irrigated with Irrigated with Saline Saline -Foul Odor after Cleansing No No -Bioengineered Tissue No No -Bleeding Controlled with NA NA -Offloading No -Treatment Response Procedure Procedure Tolerated Well Tolerated Well #1 RIGHT DELUNA CLUSTER -Time 16:05 16:16 -Correct Patient Yes Yes -Correct Side, Site, Position Yes Yes -Correct Procedure Yes Yes -Procedure Performed Yes Yes -Type of Procedure Debridement Debridement -Clinical Debridement Subcutaneous Subcutaneous -Post Debridement Size (cm) - Length 10.5 10.5 -Post Debridement Size (cm) - Width 10.2 5.5 -Post Debridement Size (cm) - Depth 0.2 0.1 -Total Square Cm 107.10 57.75 -Wound/Ulcer Outcome Not Healed Not Healed -Ulcer Cleansing Rinsed/ Rinsed/ Irrigated with Irrigated with Saline Saline -Foul Odor after Cleansing No No -Bioengineered Tissue No No -Bleeding Controlled with NA NA -Offloading No -Treatment Response Procedure Tolerated Well Pain Scale: 0-10 Numeric Is Patient Pain Free? Yes Yes Wound debrided: left deluna cluster Laterality: Left Type of Debridement: Excisional debridement Anesthesia Used: 4% Lidocaine Solution Depth: Down to and including healthy tissue, in the subcutaneous layer Percentage of wound debrided: 70 Instrument Used: 5mm curette Tissue Removed: yellow slough, devitalized tissue Severity: Fat Layer Exposed Amount of bleeding with debridement: Mild Bleeding Controlled with: Compression and gauze Patient tolerated procedure well - Additional Wound Wound debrided: right deluna Laterality: Right Type of Debridement: Excisional debridement Anesthesia Used: 4% Lidocaine Solution Depth: Down to and including healthy tissue, in the subcutaneous layer Percentage of wound debrided: 30 Instrument Used: 5mm curette Tissue Removed: yellow slough, devitalized tissue Severity: Fat Layer Exposed Amount of bleeding with debridement: Mild Bleeding Controlled with: Compression and gauze Patient tolerated procedure: Patient tolerated procedure well Assessment/Plan Active Problems Diabetes mellitus, insulin dependent (IDDM), uncontrolled (Chronic) HTN (hypertension) (Chronic) Hyperlipidemia (Chronic) PAD (peripheral artery disease) (Chronic) PVD (peripheral vascular disease) (Chronic) Venous insufficiency of both lower extremities (Chronic) Edema of both legs (Chronic) Venous ulcers of both lower extremities (Acute) Chronic venous hypertension w/ulcer and inflammation involv both sides (Chronic) Assessment: nonhealing venous ulcers of b/l lower extremities. Edema b/l lower extremities. IDDM Plan: David's wounds were evaluated and debrided today. He will continue to use Aquacel extra to his wounds changed daily and will increase compression to double layer tubigrips. Vascular referral placed due to venous incompetence. Discussed importance of avoiding idle sitting and standing to treat his ulcers and encouraged to elevate his feet at or above the level of his heart as much as possible. Encouraged weight loss, tight glucose control as well. F/U in 1 week.
== END 2018-10-21 23:59 ==
LOC: WC 15:00
PROVIDERS: Family Provider Family Medicine; PCP Family Medicine; Referring Provider Family Medicine; Visit Provider Family Medicine
DX: E10.65 Type 1 diabetes mellitus with hyperglycemia (principal); E10.51 Type 1 diabetes mellitus with diabetic peripheral angiopathy without gangrene; E10.622 Type 1 diabetes mellitus with other skin ulcer; L97.812 Non-pressure chronic ulcer of other part of right lower leg with fat layer exposed; L97.822 Non-pressure chronic ulcer of other part of left lower leg with fat layer exposed; I10 Essential (primary) hypertension; E78.5 Hyperlipidemia, unspecified; I87.2 Venous insufficiency (chronic) (peripheral); R60.0 Localized edema; I87.333 Chronic venous hypertension (idiopathic) with ulcer and inflammation of bilateral lower extremity
CPT/HCPCS: 11042; 11045; 87070; 87075; 87077; 87186; 87205; 93923; 93970; 99205; G0463

== ENCOUNTER → 2018-11-10 15:52 | Outpatient (CLI) | payer BC, SELFPAY ==
[2018-11-04 15:01] VITALS: BMI 46.2
[2018-11-10 17:20] LABS: Absolute Neutrophil Count 2.9 X10^3/uL (2.0-7.7); Basophil# 0.01 X10^3/uL; Basophil% 0.2 % (0-1); Hematocrit 39.9 % (40-54); Hemoglobin 13.2 g/dl (13.0-16.5); Lymphocyte % 30.1 % (19-41); Mean Corp Hgb Conc 33.1 g/gl (32-36); Mean Corpuscular Hgb 27.5 pg (27.0-32.0); Mean Corpuscular Volume 83.1 fL (80-94); Mean Platelet Vol. 10.5 fl (6.2-12.0); Monocyte# 0.47 X10^3/uL; Monocyte% 9.4 % (0-10); Neutrophil # 2.89 X10^3/uL (2.7-7.7); Neutrophil % 58.1 % (47-70); Platelet Count 256 K/mm3 (150-450); RBC Distribution Width CV 14.3 % (11.6-14.6); RBC Distribution Width SD 42.8 fl (35.1-43.9)
[2018-11-10 17:29] LABS: Hemoglobin A1c 12.6 % (4.2-6.3)
[2018-11-10 17:31] LABS: POSITIVE COUNT NO; POSITIVE DIFFERENTIAL NO; POSITIVE MORPHOLOGY NO
[2018-11-10 17:36] LABS: ALB/GLOB Ratio 1.1 RATIO (0.9-2.4); AST(SGOT) 16 U/L (15-37); Alanine Aminotransfer ALT/SGPT 24 U/L (16-61); Albumin, Serum 3.5 g/dL (3.2-5.0); Alkaline Phosphatase 128 U/L (45-117); Anion Gap 11 (5-15); BUN 17 mg/dL (7-18); BUN/Creat Ratio 18.8 RATIO (10-20); Calcium,Total 8.2 mg/dL (8.5-10.1); Chloride 100 mmol/L (98-107); Cholesterol 138 mg/dL (200); EST Glomerular Filtration Rate 94 mL/min (>60); Est Glom Filt Rate - Afr Amer 114 mL/min (>60); Globulin 3.3 g/dL (2.2-4.2); Glucose 245 mg/dL (74-106); High Density Lipoprotein 45 mg/dL; Potassium 3.7 mmol/L (3.5-5.1); Protein, Total 6.8 g/dL (6.4-8.2); Sodium Level 136 mmol/L (136-145); Thyroid Stim Hormone (TSH) 2.23 uIU/mL (0.358-3.74); Triglycerides 128 mg/dL; Very Low Density Lipoprotein 26 mg/dL (5-40)
[2018-11-10 17:49] LABS: Microalbumin,Random Urine 22.6 mg/L (NO RANGE EST.); Microalbumin:Creatinine Ratio 7.5 mg/g CRE (<30 mg/g CRE)
== END ==
PROVIDERS: Family Provider Family Medicine; PCP Family Medicine; Visit Provider Family Medicine
DX: E11.9 Type 2 diabetes mellitus without complications (principal); I10 Essential (primary) hypertension; E78.5 Hyperlipidemia, unspecified; Z51.81 Encounter for therapeutic drug level monitoring
CPT/HCPCS: 36415; 80053; 80061; 82043; 82570; 83036; 84443; 85025

== ENCOUNTER 2018-11-18 15:00 | Outpatient (RCR) | payer BC, SELFPAY ==
[2018-10-22 02:04] VITALS: BP 121/78; PULSE 87; RESP 16; TEMP 36.4
[2018-10-28 15:34] VITALS: BP 133/77; PULSE 92; RESP 16; TEMP 35.7; BMI 46.2
--- NOTE | 2018-10-28 19:22 | PN.PCM_ITS ---
(1) Diabetes mellitus, insulin dependent (IDDM), uncontrolled Status: Chronic Current Visit: Yes Qualifiers: Glycemic state: with hyperglycemia Code(s): E10.65 - Type 1 diabetes mellitus with hyperglycemia (2) Venous insufficiency of both lower extremities Status: Chronic Current Visit: Yes Code(s): I87.2 - Venous insufficiency (chronic) (peripheral) (3) Venous ulcers of both lower extremities Status: Acute Current Visit: Yes Code(s): I87.2 - Venous insufficiency (chr onic) (peripheral); L97.919 - Non-pressure chronic ulcer of unspecified part of right lower leg with unspecified severity; L97.929 - Non-pressure chronic ulcer of unspecified part of left lower leg with unspecified severity (4) Chronic venous hypertension w/ulcer and inflammation involv both sides Status: Chronic Current Visit: Yes Code(s): I87.333 - Chronic venous hypertension (idiopathic) with ulcer and inflammation of bilateral lower extremity; L97.919 - Non-pressure chronic ulcer of unspecified part of right lower leg with unspecified severity; L97.929 - Non-pressure chronic ulcer of unspecified part of left lower leg with unspecified severity Type of Wound Date of Service: 10/28/18 Chief Complaint: nonhealing ulcers of lower extremities b/l, edema History of Wound: David is a 48 year old male that presents to the wound center for evaluation and treatment of nonhelaing ulcers of his lower legs that have been present for approximately 4 weeks. He states that his legs became swollen and then developed blisters which itched and broke open leaving sores. He has seen his PCP and they started him on Keflex 500 mg QID and he has been taking this for 4 weeks with minimal improvement. He has also been applying antibiotic ointment. He was also started on lasix which has helped his swelling somewhat. He works at the [employer] time [employer] and he is on his feet all the time there. He thinks his last A1C was in August and was 8.0%. He denies fever or chills or pain. Admits to drainage from the wounds that is clear. Progress of Wound: Kian is here for follow up of venous ulcers. He underwent vascular testing which showed normal arterial circulation but incompetence of veins in his lower extremities bilaterally right > left. He is scheduled to see Dr. Steinberg for evaluation for possible venous ablation. He did not tolerate double layer tubigrips due to discomfort at the knee area from constriction and did develop a new blister to his right deluna and a new ulcer to his left lateral deluna. Other areas are healing well. He denies fever or chills. - Physical Exam Vital Signs Temp Pulse Resp BP 96.2 F L 92 16 133/77 H 10/28/18 15:34 10/28/18 15:34 10/28/18 15:34 10/28/18 15:34 General: Alert, Oriented x3, Cooperative, No apparent distress HEENT: Atraumatic, Normocephalic Oral: Moist Mucosa Abdomen: Obese Extremities: Edema Skin: Ulcer/ Wound Wound Measurements and Assessment WC - Nurse 1 - General Ulcer Measurement Start: 10/28/18 15:34 Freq: Status: Active Protocol: Activity Type Activity Date Activity User E-Sign Co-Sign Detail Recorded Client Recorded Date Recorded By Document 10/28/18 15:34 MW [id number] 10/28/18 15:48 MW 10/28/18 15:34 Wound Center Nurse 1 [Ulcer Assessment] #4 LEFT MEDIAL LE -Combined with other wound No -Current Size (cm) - Length 0.6 -Current Size (cm) - Width 0.8 -Current Size (cm) - Depth 0.8 -Total Square Cm 0.48 -Photo Taken No -Epithelialization None Present -Tunneling No -Undermining/Tunneling No -Circular Undermining No -Exudate Amt None Present (0 %) -Wound Margin Flat & Intact -Granulation Amt None Present (0 %) -Granulation Quality N/A -Slough/Fibrin Yes -Necrotic Tissue Type Adherent Slough -Structure Exposed N/A -Texture (Milly-wound Skin Appearance) Assessed Localized Edema -Moisture (Milly-wound Skin Appearance Assessed ) Dry/Scaly -Color (Milly-wound Skin Appearance) Assessed Rubor -Temperature (Milly-wound Skin No Abnormality Appearance) (Pt Warm) -Tenderness on Palpation (Milly-wound Yes Skin Appearance) -Ulcer Cleansing Rinsed/ Irrigated with Saline -Foul Odor after Cleansing No -Anesthetic Used 4% Lidocaine Solution #3 LEFT LATERAL LE -Combined with other wound No -Current Size (cm) - Length 3.4 -Current Size (cm) - Width 3.0 -Current Size (cm) - Depth 0.1 -Total Square Cm 10.20 -Photo Taken No -Epithelialization None Present -Tunneling No -Undermining/Tunneling No -Circular Undermining No -Exudate Amt None Present (0 %) -Wound Margin Flat & Intact -Granulation Amt None Present (0 %) -Granulation Quality N/A -Slough/Fibrin Yes -Necrosis Amt Large (67-100%) -Necrotic Tissue Type Adherent Slough -Texture (Milly-wound Skin Appearance) Assessed Localized Edema -Moisture (Milly-wound Skin Appearance Assessed ) Dry/Scaly -Color (Milly-wound Skin Appearance) Assessed Rubor -Temperature (Milly-wound Skin No Abnormality Appearance) (Pt Warm) -Tenderness on Palpation (Milly-wound No Skin Appearance) -Ulcer Cleansing Rinsed/ Irrigated with Saline -Foul Odor after Cleansing No -Anesthetic Used 4% Lidocaine Solution #2 LEFT DELUNA CLUSTER -Combined with other wound No -Current Size (cm) - Length 6.0 -Current Size (cm) - Width 5.0 -Current Size (cm) - Depth 0.1 -Total Square Cm 30.00 -Photo Taken No -Epithelialization None Present -Tunneling No -Undermining/Tunneling No -Circular Undermining No -Exudate Amt None Present (0 %) -Wound Margin Flat & Intact -Granulation Amt None Present (0 %) -Granulation Quality N/A -Slough/Fibrin Yes -Necrosis Amt Large (67-100%) -Necrotic Tissue Type Adherent Slough -Structure Exposed N/A -Texture (Milly-wound Skin Appearance) Assessed Localized Edema -Moisture (Milly-wound Skin Appearance Assessed ) Dry/Scaly -Color (Milly-wound Skin Appearance) No Abnormality Rubor -Temperature (Milly-wound Skin No Abnormality Appearance) (Pt Warm) -Ulcer Cleansing Rinsed/ Irrigated with Saline -Foul Odor after Cleansing No -Anesthetic Used 4% Lidocaine Solution #1 RIGHT DELUNA CLUSTER -Combined with other wound No -Current Size (cm) - Length 1.6 -Current Size (cm) - Width 4.0 -Current Size (cm) - Depth 0.1 -Total Square Cm 6.40 -Photo Taken No -Epithelialization None Present -Tunneling No -Undermining/Tunneling No -Circular Undermining No -Exudate Amt None Present (0 %) -Wound Margin Flat & Intact -Granulation Amt None Present (0 %) -Granulation Quality N/A -Slough/Fibrin Yes -Necrosis Amt Large (67-100%) -Necrotic Tissue Type Adherent Slough -Structure Exposed N/A -Texture (Milly-wound Skin Appearance) Assessed Localized Edema -Moisture (Milly-wound Skin Appearance Assessed ) Dry/Scaly -Color (Milly-wound Skin Appearance) Assessed Rubor -Temperature (Milly-wound Skin No Abnormality Appearance) (Pt Warm) -Tenderness on Palpation (Milly-wound No Skin Appearance) -Ulcer Cleansing Rinsed/ Irrigated with Saline -Foul Odor after Cleansing No -Anesthetic Used 4% Lidocaine Solution [Edema Assessment] -Lower Limb Edema Present Yes -Right Calf (cm) 48.2 -Right Ankle (cm) 24.4 -Left Calf (cm) 45.5 -Left Ankle (cm) 25.4 WC - Nurse 2 - General Ulcer CM Notes Start: 10/28/18 15:34 Freq: Status: Active Protocol: Activity Type Activity Date Activity User E-Sign Co-Sign Detail Recorded Client Recorded Date Recorded By Document 10/28/18 16:06 [id number] 10/28/18 16:14 10/28/18 16:06 Wound Center Nurse 2 [Procedure/Treatment] #4 LEFT MEDIAL LE -Time 16:12 -Correct Patient Yes -Correct Side, Site, Position Yes -Correct Procedure Yes -Procedure Performed Yes -Type of Procedure Debridement -Clinical Debridement Subcutaneous -Post Debridement Size (cm) - Length 0.6 -Post Debridement Size (cm) - Width 0.9 -Post Debridement Size (cm) - Depth 0.1 -Total Square Cm 0.54 -Wound/Ulcer Outcome Not Healed -Ulcer Cleansing Not Cleansed -Foul Odor after Cleansing No -Bioengineered Tissue No -Bleeding Controlled with NA -Offloading No -Treatment Response Procedure Tolerated Well #3 LEFT LATERAL LE -Time 16:12 -Correct Patient Yes -Correct Side, Site, Position Yes -Correct Procedure Yes -Procedure Performed Yes -Type of Procedure Debridement -Clinical Debridement Subcutaneous -Post Debridement Size (cm) - Length 3.5 -Post Debridement Size (cm) - Width 2.5 -Post Debridement Size (cm) - Depth 0.1 -Total Square Cm 8.75 -Wound/Ulcer Outcome Not Healed -Ulcer Cleansing Not Cleansed -Foul Odor after Cleansing No -Bioengineered Tissue No -Bleeding Controlled with NA -Offloading No -Treatment Response Procedure Tolerated Well #2 LEFT DELUNA CLUSTER -Time 16:13 -Correct Patient Yes -Correct Side, Site, Position Yes -Correct Procedure Yes -Procedure Performed Yes -Type of Procedure Debridement -Clinical Debridement Subcutaneous -Post Debridement Size (cm) - Length 1 -Post Debridement Size (cm) - Width 0.3 -Post Debridement Size (cm) - Depth 0.1 -Total Square Cm 0.3 -Wound/Ulcer Outcome Not Healed -Ulcer Cleansing Not Cleansed -Foul Odor after Cleansing No -Bioengineered Tissue No -Bleeding Controlled with NA -Offloading No -Treatment Response Procedure Tolerated Well #1 RIGHT DELUNA CLUSTER -Time 16:13 -Correct Patient Yes -Correct Side, Site, Position Yes -Correct Procedure Yes -Procedure Performed Yes -Type of Procedure Debridement -Clinical Debridement Subcutaneous -Post Debridement Size (cm) - Length 1.2 -Post Debridement Size (cm) - Width 1.3 -Post Debridement Size (cm) - Depth 0.1 -Total Square Cm 1.56 -Wound/Ulcer Outcome Not Healed -Ulcer Cleansing Not Cleansed -Foul Odor after Cleansing No -Bioengineered Tissue No -Bleeding Controlled with NA -Offloading No -Treatment Response Procedure Tolerated Well [See Physician Procedure note for Specifics] Pain Scale: 0-10 Numeric [Pain] -Is Patient Pain Free? Yes Psych/Mental Status: Normal Affect, Appropriate Debridement Note Post-Debridement Measurements/Treatment WC - Nurse 2 - General Ulcer CM Notes Start: 10/28/18 15:34 Freq: Status: Active Protocol: Activity Type Activity Date Activity User E-Sign Co-Sign Detail Recorded Client Recorded Date Recorded By Document 10/28/18 16:06 [id number] 10/28/18 16:14 10/28/18 16:06 Wound Center Nurse 2 #4 LEFT MEDIAL LE -Time 16:12 -Correct Patient Yes -Correct Side, Site, Position Yes -Correct Procedure Yes -Procedure Performed Yes -Type of Procedure Debridement -Clinical Debridement Subcutaneous -Post Debridement Size (cm) - Length 0.6 -Post Debridement Size (cm) - Width 0.9 -Post Debridement Size (cm) - Depth 0.1 -Total Square Cm 0.54 -Wound/Ulcer Outcome Not Healed -Ulcer Cleansing Not Cleansed -Foul Odor after Cleansing No -Bioengineered Tissue No -Bleeding Controlled with NA -Offloading No -Treatment Response Procedure Tolerated Well #3 LEFT LATERAL LE -Time 16:12 -Correct Patient Yes -Correct Side, Site, Position Yes -Correct Procedure Yes -Procedure Performed Yes -Type of Procedure Debridement -Clinical Debridement Subcutaneous -Post Debridement Size (cm) - Length 3.5 -Post Debridement Size (cm) - Width 2.5 -Post Debridement Size (cm) - Depth 0.1 -Total Square Cm 8.75 -Wound/Ulcer Outcome Not Healed -Ulcer Cleansing Not Cleansed -Foul Odor after Cleansing No -Bioengineered Tissue No -Bleeding Controlled with NA -Offloading No -Treatment Response Procedure Tolerated Well #2 LEFT DELUNA CLUSTER -Time 16:13 -Correct Patient Yes -Correct Side, Site, Position Yes -Correct Procedure Yes -Procedure Performed Yes -Type of Procedure Debridement -Clinical Debridement Subcutaneous -Post Debridement Size (cm) - Length 1 -Post Debridement Size (cm) - Width 0.3 -Post Debridement Size (cm) - Depth 0.1 -Total Square Cm 0.3 -Wound/Ulcer Outcome Not Healed -Ulcer Cleansing Not Cleansed -Foul Odor after Cleansing No -Bioengineered Tissue No -Bleeding Controlled with NA -Offloading No -Treatment Response Procedure Tolerated Well #1 RIGHT DELUNA CLUSTER -Time 16:13 -Correct Patient Yes -Correct Side, Site, Position Yes -Correct Procedure Yes -Procedure Performed Yes -Type of Procedure Debridement -Clinical Debridement Subcutaneous -Post Debridement Size (cm) - Length 1.2 -Post Debridement Size (cm) - Width 1.3 -Post Debridement Size (cm) - Depth 0.1 -Total Square Cm 1.56 -Wound/Ulcer Outcome Not Healed -Ulcer Cleansing Not Cleansed -Foul Odor after Cleansing No -Bioengineered Tissue No -Bleeding Controlled with NA -Offloading No -Treatment Response Procedure Tolerated Well Pain Scale: 0-10 Numeric Is Patient Pain Free? Yes Wound debrided: left medial LE Laterality: Left Type of Debridement: Excisional debridement Anesthesia Used: 4% Lidocaine Solution Depth: Down to and including healthy tissue, in the subcutaneous layer Percentage of wound debrided: 100 Instrument Used: 7mm curette Tissue Removed: yellow slough, devitalized tissue Severity: Fat Layer Exposed Amount of bleeding with debridement: Mild Bleeding Controlled with: Compression and gauze Patient tolerated procedure well - Additional Wound Wound debrided: left lateral LE Laterality: Left Type of Debridement: Excisional debridement Anesthesia Used: 4% Lidocaine Solution Depth: Down to and including healthy tissue, in the subcutaneous layer Percentage of wound debrided: 100 Instrument Used: 7mm curette Tissue Removed: yellow slough, devitalized tissue Severity: Fat Layer Exposed Amount of bleeding with debridement: Mild Bleeding Controlled with: Compression and gauze Patient tolerated procedure: Patient tolerated procedure well - Additional Wound Wound debrided: left deluna cluster Laterality: Left Type of Debridement: Excisional debridement Anesthesia Used: 4% Lidocaine Solution Depth: Down to and including healthy tissue, in the subcutaneous layer Percentage of wound debrided: 100 Instrument Used: 7mm curette Tissue Removed: yellow slough, devitalized tissue Severity: Fat Layer Exposed Amount of bleeding with debridement: Mild Bleeding Controlled with: Compression and gauze Patient tolerated procedure: Patient tolerated procedure well - Additional Wound Wound debrided: right deluna cluster Laterality: Right Type of Debridement: Excisional debridement Anesthesia Used: 4% Lidocaine Solution Depth: Down to and including healthy tissue, in the subcutaneous layer Percentage of wound debrided: 100 Instrument Used: 7mm curette Tissue Removed: yellow slough, devitalized tissue Severity: Fat Layer Exposed Amount of bleeding with debridement: Mild Bleeding Controlled with: Compression and gauze Patient tolerated procedure: Patient tolerated procedure well Assessment/Plan Active Problems Diabetes mellitus, insulin dependent (IDDM), uncontrolled (Chronic) Venous insufficiency of both lower extremities (Chronic) Venous ulcers of both lower extremities (Acute) Chronic venous hypertension w/ulcer and inflammation involv both sides (Chronic) Assessment: nonhealing venous ulcers of b/l lower extremities. Edema b/l lower extremities. IDDM Plan: David's wounds were evaluated and debrided today. We will continue to use Aquacel extra to his wounds and will try to treat edema with 3M compression wraps. Vascular referral placed due to venous incompetence. Discussed importance of avoiding idle sitting and standing to treat his ulcers and encouraged to elevate his feet at or above the level of his heart as much as possible. Encouraged weight loss, tight glucose control as well. F/U in 1 week, with nurse visit on Wednesday to change 3M wraps.
[2018-11-01 13:43] VITALS: BP 142/85; PULSE 81; RESP 20; TEMP 36.2; BMI 46.2
[2018-11-04 15:01] VITALS: BP 136/72; PULSE 91; RESP 18; TEMP 36.5; BMI 46.2
--- NOTE | 2018-11-04 15:25 | PCM.WC.PN ---
(1) Diabetes mellitus, insulin dependent (IDDM), uncontrolled Status: Chronic Current Visit: Yes Qualifiers: Glycemic state: with hyperglycemia Code(s): E10.65 - Type 1 diabetes mellitus with hyperglycemia (2) Venous insufficiency of both lower extremities Status: Chronic Current Visit: Yes Code(s): I87.2 - Venous insufficiency (chronic) (peripheral) (3) Venous ulcers of both lower extremities Status: Acute Current Visit: Yes Code(s): I87.2 - Venous insufficiency (chronic) (peripheral); L97.919 - Non-pressure chronic ulcer of unspecified part of right lower leg with unspecified severity; L97.929 - Non-pressure chronic ulcer of unspecified part of left lower leg with unspecified severity (4) Chronic venous hypertension w/ulcer and inflammation involv both sides Status: Chronic Current Visit: Yes Code(s): I87.333 - Chronic venous hypertension (idiopathic) with ulcer and inflammation of bilateral lower extremity; L97.919 - Non-pressure chronic ulcer of unspecified part of right lower leg with unspecified severity; L97.929 - Non-pressure chronic ulcer of unspecified part of left lower leg with unspecified severity Type of Wound Date of Service: 11/04/18 Chief Complaint: nonhealing ulcers of lower extremities b/l, edema History of Wound: David is a 48 year old male that presents to the wound center for evaluation and treatment of nonhelaing ulcers of his lower legs that have been present for approximately 4 weeks. He states that his legs became swollen and then developed blisters which itched and broke open leaving sores. He has seen his PCP and they started him on Keflex 500 mg QID and he has been taking this for 4 weeks with minimal improvement. He has also been applying antibiotic ointment. He was also started on lasix which has helped his swelling somewhat. He works at the [employer] and he is on his feet all the time there. He thinks his last A1C was in August and was 8.0%. He denies fever or chills or pain. Admits to drainage from the wounds that is clear. Progress of Wound: Kian is here for follow up of venous ulcers. He underwent vascular testing which showed normal arterial circulation but incompetence of veins in his lower extremities bilaterally right > left. He is scheduled to see Dr. Steinberg for evaluation for possible venous ablation this upcoming Wednesday. He did not tolerate double layer tubigrips due to discomfort at the knee area from constriction and did develop a new blister to his right deluna and a new ulcer to his left lateral deluna after using them. He did ok with 3M 2 layer compression for the first part of the week but after they were changed on Wednesday by last night they were painful and he could not tolerate them any longer and his mother cut them off. There has been minimal improvment to the areas and increased pain. He denies fever or chills. - Physical Exam Vital Signs Temp Pulse Resp BP 97.7 F L 91 18 136/72 H 11/04/18 15:01 11/04/18 15:01 11/04/18 15:01 11/04/18 15:01 General: Alert, Oriented x3, Cooperative, No apparent distress HEENT: Atraumatic, Normocephalic Oral: Moist Mucosa Abdomen: Obese Extremities: Edema Skin: Ulcer/ Wound Wound Measurements and Assessment WC - Nurse 1 - General Ulcer Measurement Start: 10/28/18 15:34 Freq: Status: Active Protocol: Activity Type Activity Date Activity User E-Sign Co-Sign Detail Recorded Client Recorded Date Recorded By Document 11/04/18 15:01 [id number] 11/04/18 15:06 11/04/18 15:01 Wound Center Nurse 1 [Ulcer Assessment] #4 LEFT MEDIAL LE -Combined with other wound No -Current Size (cm) - Length 1.9 -Current Size (cm) - Width 1.3 -Current Size (cm) - Depth 0.1 -Total Square Cm 2.47 -Photo Taken No -Epithelialization None Present -Tunneling No -Undermining/Tunneling No -Circular Undermining No -Exudate Amt Medium (34-66%) -Exudate Type Serosanguineous -Wound Margin Distinct, Outline Attached -Granulation Amt Medium (34-66%) -Granulation Quality Pale [place] -Slough/Fibrin Yes -Necrosis Amt None Present (0 %) -Necrotic Tissue Type Adherent Slough -Structure Exposed None/Limited to Skin Breakdown -Texture (Milly-wound Skin Appearance) No Abnormality Assessed -Moisture (Milly-wound Skin Appearance Dry/Scaly ) -Color (Milly-wound Skin Appearance) No Abnormality Assessed -Temperature (Milly-wound Skin No Abnormality Appearance) (Pt Warm) -Tenderness on Palpation (Mlily-wound No Skin Appearance) -Ulcer Cleansing Rinsed/ Irrigated with Saline -Foul Odor after Cleansing No -Anesthetic Used 4% Lidocaine Solution #3 LEFT LATERAL LE -Combined with other wound No -Current Size (cm) - Length 11.6 -Current Size (cm) - Width 3.2 -Current Size (cm) - Depth 0.1 -Total Square Cm 37.12 -Photo Taken No -Epithelialization None Present -Tunneling No -Undermining/Tunneling No -Circular Undermining No -Temperature (Milly-wound Skin No Abnormality Appearance) (Pt Warm) -Tenderness on Palpation (Milly-wound No Skin Appearance) -Ulcer Cleansing Rinsed/ Irrigated with Saline -Foul Odor after Cleansing No -Anesthetic Used 4% Lidocaine Solution #2 LEFT DELUNA CLUSTER -Combined with other wound No -Current Size (cm) - Length 0.1 -Current Size (cm) - Width 0.1 -Current Size (cm) - Depth 0.1 -Total Square Cm 0.01 -Photo Taken No -Epithelialization Large 67-100% -Tunneling No -Undermining/Tunneling No -Circular Undermining No #1 RIGHT DELUNA CLUSTER -Combined with other wound No -Current Size (cm) - Length 11.9 -Current Size (cm) - Width 7.2 -Current Size (cm) - Depth 0.1 -Total Square Cm 85.68 -Photo Taken No -Epithelialization None Present -Tunneling No -Undermining/Tunneling No -Circular Undermining No -Granulation Amt Medium (34-66%) -Granulation Quality Pale [place] -Slough/Fibrin Yes -Necrosis Amt None Present (0 %) -Necrotic Tissue Type Adherent Slough -Structure Exposed None/Limited to Skin Breakdown -Texture (Milly-wound Skin Appearance) No Abnormality Assessed -Moisture (Milly-wound Skin Appearance [place] ) -Color (Milly-wound Skin Appearance) No Abnormality Assessed -Temperature (Milly-wound Skin No Abnormality Appearance) (Pt Warm) -Tenderness on Palpation (Milly-wound No Skin Appearance) -Ulcer Cleansing Rinsed/ Irrigated with Saline -Foul Odor after Cleansing No -Anesthetic Used 4% Lidocaine Solution [Edema Assessment] -Lower Limb Edema Present Yes -Right Calf (cm) 46 -Right Ankle (cm) 25 -Left Calf (cm) 45 -Left Ankle (cm) 25 WC - Nurse 2 - General Ulcer CM Notes Start: 10/28/18 15:34 Freq: Status: Active Protocol: Activity Type Activity Date Activity User E-Sign Co-Sign Detail Recorded Client Recorded Date Recorded By Document 11/04/18 15:01 [id number] 11/04/18 15:06 11/04/18 15:01 Wound Center Nurse 2 [Procedure/Treatment] #4 LEFT MEDIAL LE -Time 15:06 -Correct Patient Yes -Correct Side, Site, Position Yes -Correct Procedure Yes -Procedure Performed Yes -Type of Procedure Debridement -Clinical Debridement Subcutaneous -Post Debridement Size (cm) - Length 2 -Post Debridement Size (cm) - Width 1.5 -Post Debridement Size (cm) - Depth 0.1 -Total Square Cm 3.0 -Wound/Ulcer Outcome Not Healed -Ulcer Cleansing Rinsed/ Irrigated with Saline -Foul Odor after Cleansing No -Bioengineered Tissue No -Bleeding Controlled with NA -Offloading No -Treatment Response Procedure Tolerated Well #3 LEFT LATERAL LE -Time 15:10 -Correct Patient Yes -Correct Side, Site, Position Yes -Correct Procedure Yes -Procedure Performed Yes -Post Debridement Size (cm) - Length 11.8 -Post Debridement Size (cm) - Width 2.7 -Post Debridement Size (cm) - Depth 0.1 -Total Square Cm 31.86 -Wound/Ulcer Outcome Not Healed -Ulcer Cleansing Rinsed/ Irrigated with Saline -Foul Odor after Cleansing No -Bioengineered Tissue No -Bleeding Controlled with NA -Offloading No -Treatment Response Procedure Tolerated Well #2 LEFT DELUNA CLUSTER -Time 15:10 -Post Debridement Size (cm) - Length 0.1 -Post Debridement Size (cm) - Width 0.1 -Post Debridement Size (cm) - Depth 0.1 -Total Square Cm 0.01 -Wound/Ulcer Outcome Healed- Epithelialized #1 RIGHT DELUNA CLUSTER -Time 15:11 -Correct Patient Yes -Correct Side, Site, Position Yes -Correct Procedure Yes -Procedure Performed Yes -Type of Procedure Debridement -Clinical Debridement Subcutaneous -Post Debridement Size (cm) - Length 5.7 -Post Debridement Size (cm) - Width 5.1 -Post Debridement Size (cm) - Depth 0.1 -Total Square Cm 29.07 -Wound/Ulcer Outcome Not Healed -Ulcer Cleansing Not Cleansed -Foul Odor after Cleansing No -Bioengineered Tissue No -Bleeding Controlled with NA -Offloading No -Treatment Response Procedure Tolerated Well Psych/Mental Status: Normal Affect, Appropriate Debridement Note Post-Debridement Measurements/Treatment WC - Nurse 2 - General Ulcer CM Notes Start: 10/28/18 15:34 Freq: Status: Active Protocol: Activity Type Activity Date Activity User E-Sign Co-Sign Detail Recorded Client Recorded Date Recorded By Document 10/28/18 16:06 [id number] 10/28/18 16:14 CS Document 11/04/18 15:01 [id number] 11/04/18 15:06 CS 10/28/18 11/04/18 16:06 15:01 Wound Center Nurse 2 #4 LEFT MEDIAL LE -Time 16:12 15:06 -Correct Patient Yes Yes -Correct Side, Site, Position Yes Yes -Correct Procedure Yes Yes -Procedure Performed Yes Yes -Type of Procedure Debridement Debridement -Clinical Debridement Subcutaneous Subcutaneous -Post Debridement Size (cm) - Length 0.6 2 -Post Debridement Size (cm) - Width 0.9 1.5 -Post Debridement Size (cm) - Depth 0.1 0.1 -Total Square Cm 0.54 3.0 -Wound/Ulcer Outcome Not Healed Not Healed -Ulcer Cleansing Not Cleansed Rinsed/ Irrigated with Saline -Foul Odor after Cleansing No No -Bioengineered Tissue No No -Bleeding Controlled with NA NA -Offloading No No -Treatment Response Procedure Procedure Tolerated Well Tolerated Well #3 LEFT LATERAL LE -Time 16:12 15:10 -Correct Patient Yes Yes -Correct Side, Site, Position Yes Yes -Correct Procedure Yes Yes -Procedure Performed Yes Yes -Type of Procedure Debridement -Clinical Debridement Subcutaneous -Post Debridement Size (cm) - Length 3.5 11.8 -Post Debridement Size (cm) - Width 2.5 2.7 -Post Debridement Size (cm) - Depth 0.1 0.1 -Total Square Cm 8.75 31.86 -Wound/Ulcer Outcome Not Healed Not Healed -Ulcer Cleansing Not Cleansed Rinsed/ Irrigated with Saline -Foul Odor after Cleansing No No -Bioengineered Tissue No No -Bleeding Controlled with NA NA -Offloading No No -Treatment Response Procedure Procedure Tolerated Well Tolerated Well #2 LEFT DELUNA CLUSTER -Time 16:13 15:10 -Correct Patient Yes -Correct Side, Site, Position Yes -Correct Procedure Yes -Procedure Performed Yes -Type of Procedure Debridement -Clinical Debridement Subcutaneous -Post Debridement Size (cm) - Length 1 0.1 -Post Debridement Size (cm) - Width 0.3 0.1 -Post Debridement Size (cm) - Depth 0.1 0.1 -Total Square Cm 0.3 0.01 -Wound/Ulcer Outcome Not Healed Healed- Epithelialized -Ulcer Cleansing Not Cleansed -Foul Odor after Cleansing No -Bioengineered Tissue No -Bleeding Controlled with NA -Offloading No -Treatment Response Procedure Tolerated Well #1 RIGHT DELUNA CLUSTER -Time 16:13 15:11 -Correct Patient Yes Yes -Correct Side, Site, Position Yes Yes -Correct Procedure Yes Yes -Procedure Performed Yes Yes -Type of Procedure Debridement Debridement -Clinical Debridement Subcutaneous Subcutaneous -Post Debridement Size (cm) - Length 1.2 5.7 -Post Debridement Size (cm) - Width 1.3 5.1 -Post Debridement Size (cm) - Depth 0.1 0.1 -Total Square Cm 1.56 29.07 -Wound/Ulcer Outcome Not Healed Not Healed -Ulcer Cleansing Not Cleansed Not Cleansed -Foul Odor after Cleansing No No -Bioengineered Tissue No No -Bleeding Controlled with NA NA -Offloading No No -Treatment Response Procedure Procedure Tolerated Well Tolerated Well Pain Scale: 0-10 Numeric Is Patient Pain Free? Yes Wound debrided: left medial LE Laterality: Left Type of Debridement: Excisional debridement Anesthesia Used: 4% Lidocaine Solution Depth: Down to and including healthy tissue, in the subcutaneous layer Percentage of wound debrided: 100 Instrument Used: 5mm curette Tissue Removed: yellow slough, devitalized tissue Severity: Fat Layer Exposed Amount of bleeding with debridement: Mild Bleeding Controlled with: Compression and gauze Patient tolerated procedure well - Additional Wound Wound debrided: left lateral LE Laterality: Left Type of Debridement: Excisional debridement Anesthesia Used: 4% Lidocaine Solution Depth: Down to and including healthy tissue, in the subcutaneous layer Percentage of wound debrided: 70 Instrument Used: 5mm curette Tissue Removed: yellow slough, devitalized tissue Severity: Fat Layer Exposed Amount of bleeding with debridement: Mild Bleeding Controlled with: Compression and gauze Patient tolerated procedure: Patient tolerated procedure well - Additional Wound Wound debrided: right deluna cluster Laterality: Right Type of Debridement: Excisional debridement Anesthesia Used: 4% Lidocaine Solution Depth: Down to and including healthy tissue, in the subcutaneous layer Percentage of wound debrided: 100 Instrument Used: 5mm curette Tissue Removed: yellow slough, devitalized tissue Severity: Fat Layer Exposed Amount of bleeding with debridement: Mild Bleeding Controlled with: Compression and gauze Patient tolerated procedure: Patient tolerated procedure well - Additional Wound Wound debrided: left deluna cluster Laterality: Left Type of Debridement: Selective debridement Depth: Down to and including healthy tissue Percentage of wound debrided: 100 Instrument Used: 5mm curette Tissue Removed: devitalized tissue Amount of bleeding with debridement: None Patient tolerated procedure: Patient tolerated procedure well Assessment/Plan Active Problems Diabetes mellitus, insulin dependent (IDDM), uncontrolled (Chronic) Venous insufficiency of both lower extremities (Chronic) Venous ulcers of both lower extremities (Acute) Chronic venous hypertension w/ulcer and inflammation involv both sides (Chronic) Assessment: nonhealing venous ulcers of b/l lower extremities. Edema b/l lower extremities. IDDM Plan: David's wounds were evaluated and debrided today. We will continue to use Aquacel extra to his wounds and will try to treat edema with Surepress compression wraps. Wound culture doen due to increased pain and lack of improvement. Will call with results if treatment needed. Vascular referral placed due to venous incompetence. Discussed importance of avoiding idle sitting and standing to treat his ulcers and encouraged to elevate his feet at or above the level of his heart as much as possible. Encouraged weight loss, tight glucose control as well. F/U in 1 week.
--- NOTE | 2018-11-04 15:29 | PN.PCM_ITS ---
(1) Diabetes mellitus, insulin dependent (IDDM), uncontrolled Status: Chronic Current Visit: Yes Qualifiers: Glycemic state: with hyperglycemia Code(s): E10.65 - Type 1 diabetes mellitus with hyperglycemia (2) Venous insufficiency of both lower extremities Status: Chronic Current Visit: Yes Code(s): I87.2 - Venous insufficiency (chronic) (peripheral) (3) Venous ulcers of both lower extremities Status: Acute Current Visit: Yes Code(s): I87.2 - Venous insufficiency (chr onic) (peripheral); L97.919 - Non-pressure chronic ulcer of unspecified part of right lower leg with unspecified severity; L97.929 - Non-pressure chronic ulcer of unspecified part of left lower leg with unspecified severity (4) Chronic venous hypertension w/ulcer and inflammation involv both sides Status: Chronic Current Visit: Yes Code(s): I87.333 - Chronic venous hypertension (idiopathic) with ulcer and inflammation of bilateral lower extremity; L97.919 - Non-pressure chronic ulcer of unspecified part of right lower leg with unspecified severity; L97.929 - Non-pressure chronic ulcer of unspecified part of left lower leg with unspecified severity Type of Wound Date of Service: 11/04/18 Chief Complaint: nonhealing ulcers of lower extremities b/l, edema History of Wound: David is a 48 year old male that presents to the wound center for evaluation and treatment of nonhelaing ulcers of his lower legs that have been present for approximately 4 weeks. He states that his legs became swollen and then developed blisters which itched and broke open leaving sores. He has seen his PCP and they started him on Keflex 500 mg QID and he has been taking this for 4 weeks with minimal improvement. He has also been applying antibiotic ointment. He was also started on lasix which has helped his swelling somewhat. He works at the [employer] and he is on his feet all the time there. He thinks his last A1C was in August and was 8.0%. He denies fever or chills or pain. Admits to drainage from the wounds that is clear. Progress of Wound: Kian is here for follow up of venous ulcers. He underwent vascular testing which showed normal arterial circulation but incompetence of veins in his lower extremities bilaterally right > left. He is scheduled to see Dr. Steinberg for evaluation for possible venous ablation this upcoming Wednesday. He did not tolerate double layer tubigrips due to discomfort at the knee area from constriction and did develop a new blister to his right deluna and a new ulcer to his left lateral deluna after using them. He did ok with 3M 2 layer compression for the first part of the week but after they were changed on Wednesday by last night they were painful and he could not tolerate them any longer and his mother cut them off. There has been minimal improvment to the areas and increased pain. He denies fever or chills. - Physical Exam Vital Signs Temp Pulse Resp BP 97.7 F L 91 18 136/72 H 11/04/18 15:01 11/04/18 15:01 11/04/18 15:01 11/04/18 15:01 General: Alert, Oriented x3, Cooperative, No apparent distress HEENT: Atraumatic, Normocephalic Oral: Moist Mucosa Abdomen: Obese Extremities: Edema Skin: Ulcer/ Wound Wound Measurements and Assessment WC - Nurse 1 - General Ulcer Measurement Start: 10/28/18 15:34 Freq: Status: Active Protocol: Activity Type Activity Date Activity User E-Sign Co-Sign Detail Recorded Client Recorded Date Recorded By Document 11/04/18 15:01 [id number] 11/04/18 15:06 11/04/18 15:01 Wound Center Nurse 1 [Ulcer Assessment] #4 LEFT MEDIAL LE -Combined with other wound No -Current Size (cm) - Length 1.9 -Current Size (cm) - Width 1.3 -Current Size (cm) - Depth 0.1 -Total Square Cm 2.47 -Photo Taken No -Epithelialization None Present -Tunneling No -Undermining/Tunneling No -Circular Undermining No -Exudate Amt Medium (34-66%) -Exudate Type Serosanguineous -Wound Margin Distinct, Outline Attached -Granulation Amt Medium (34-66%) -Granulation Quality Pale [place] -Slough/Fibrin Yes -Necrosis Amt None Present (0 %) -Necrotic Tissue Type Adherent Slough -Structure Exposed None/Limited to Skin Breakdown -Texture (Milly-wound Skin Appearance) No Abnormality Assessed -Moisture (Milly-wound Skin Appearance Dry/Scaly ) -Color (Milly-wound Skin Appearance) No Abnormality Assessed -Temperature (Milly-wound Skin No Abnormality Appearance) (Pt Warm) -Tenderness on Palpation (Milly-wound No Skin Appearance) -Ulcer Cleansing Rinsed/ Irrigated with Saline -Foul Odor after Cleansing No -Anesthetic Used 4% Lidocaine Solution #3 LEFT LATERAL LE -Combined with other wound No -Current Size (cm) - Length 11.6 -Current Size (cm) - Width 3.2 -Current Size (cm) - Depth 0.1 -Total Square Cm 37.12 -Photo Taken No -Epithelialization None Present -Tunneling No -Undermining/Tunneling No -Circular Undermining No -Temperature (Milly-wound Skin No Abnormality Appearance) (Pt Warm) -Tenderness on Palpation (Milly-wound No Skin Appearance) -Ulcer Cleansing Rinsed/ Irrigated with Saline -Foul Odor after Cleansing No -Anesthetic Used 4% Lidocaine Solution #2 LEFT DELUNA CLUSTER -Combined with other wound No -Current Size (cm) - Length 0.1 -Current Size (cm) - Width 0.1 -Current Size (cm) - Depth 0.1 -Total Square Cm 0.01 -Photo Taken No -Epithelialization Large 67-100% -Tunneling No -Undermining/Tunneling No -Circular Undermining No #1 RIGHT DELUNA CLUSTER -Combined with other wound No -Current Size (cm) - Length 11.9 -Current Size (cm) - Width 7.2 -Current Size (cm) - Depth 0.1 -Total Square Cm 85.68 -Photo Taken No -Epithelialization None Present -Tunneling No -Undermining/Tunneling No -Circular Undermining No -Granulation Amt Medium (34-66%) -Granulation Quality Pale [place] -Slough/Fibrin Yes -Necrosis Amt None Present (0 %) -Necrotic Tissue Type Adherent Slough -Structure Exposed None/Limited to Skin Breakdown -Texture (Milly-wound Skin Appearance) No Abnormality Assessed -Moisture (Milly-wound Skin Appearance Weeping ) -Color (Milly-wound Skin Appearance) No Abnormality Assessed -Temperature (Milly-wound Skin No Abnormality Appearance) (Pt Warm) -Tenderness on Palpation (Milly-wound No Skin Appearance) -Ulcer Cleansing Rinsed/ Irrigated with Saline -Foul Odor after Cleansing No -Anesthetic Used 4% Lidocaine Solution [Edema Assessment] -Lower Limb Edema Present Yes -Right Calf (cm) 46 -Right Ankle (cm) 25 -Left Calf (cm) 45 -Left Ankle (cm) 25 WC - Nurse 2 - General Ulcer CM Notes Start: 10/28/18 15:34 Freq: Status: Active Protocol: Activity Type Activity Date Activity User E-Sign Co-Sign Detail Recorded Client Recorded Date Recorded By Document 11/04/18 15:01 [id number] 11/04/18 15:06 11/04/18 15:01 Wound Center Nurse 2 [Procedure/Treatment] #4 LEFT MEDIAL LE -Time 15:06 -Correct Patient Yes -Correct Side, Site, Position Yes -Correct Procedure Yes -Procedure Performed Yes -Type of Procedure Debridement -Clinical Debridement Subcutaneous -Post Debridement Size (cm) - Length 2 -Post Debridement Size (cm) - Width 1.5 -Post Debridement Size (cm) - Depth 0.1 -Total Square Cm 3.0 -Wound/Ulcer Outcome Not Healed -Ulcer Cleansing Rinsed/ Irrigated with Saline -Foul Odor after Cleansing No -Bioengineered Tissue No -Bleeding Controlled with NA -Offloading No -Treatment Response Procedure Tolerated Well #3 LEFT LATERAL LE -Time 15:10 -Correct Patient Yes -Correct Side, Site, Position Yes -Correct Procedure Yes -Procedure Performed Yes -Post Debridement Size (cm) - Length 11.8 -Post Debridement Size (cm) - Width 2.7 -Post Debridement Size (cm) - Depth 0.1 -Total Square Cm 31.86 -Wound/Ulcer Outcome Not Healed -Ulcer Cleansing Rinsed/ Irrigated with Saline -Foul Odor after Cleansing No -Bioengineered Tissue No -Bleeding Controlled with NA -Offloading No -Treatment Response Procedure Tolerated Well #2 LEFT DELUNA CLUSTER -Time 15:10 -Post Debridement Size (cm) - Length 0.1 -Post Debridement Size (cm) - Width 0.1 -Post Debridement Size (cm) - Depth 0.1 -Total Square Cm 0.01 -Wound/Ulcer Outcome Healed- Epithelialized #1 RIGHT DELUNA CLUSTER -Time 15:11 -Correct Patient Yes -Correct Side, Site, Position Yes -Correct Procedure Yes -Procedure Performed Yes -Type of Procedure Debridement -Clinical Debridement Subcutaneous -Post Debridement Size (cm) - Length 5.7 -Post Debridement Size (cm) - Width 5.1 -Post Debridement Size (cm) - Depth 0.1 -Total Square Cm 29.07 -Wound/Ulcer Outcome Not Healed -Ulcer Cleansing Not Cleansed -Foul Odor after Cleansing No -Bioengineered Tissue No -Bleeding Controlled with NA -Offloading No -Treatment Response Procedure Tolerated Well Psych/Mental Status: Normal Affect, Appropriate Debridement Note Post-Debridement Measurements/Treatment WC - Nurse 2 - General Ulcer CM Notes Start: 10/28/18 15:34 Freq: Status: Active Protocol: Activity Type Activity Date Activity User E-Sign Co-Sign Detail Recorded Client Recorded Date Recorded By Document 10/28/18 16:06 [id number] 10/28/18 16:14 CS Document 11/04/18 15:01 [id number] 11/04/18 15:06 CS 10/28/18 11/04/18 16:06 15:01 Wound Center Nurse 2 #4 LEFT MEDIAL LE -Time 16:12 15:06 -Correct Patient Yes Yes -Correct Side, Site, Position Yes Yes -Correct Procedure Yes Yes -Procedure Performed Yes Yes -Type of Procedure Debridement Debridement -Clinical Debridement Subcutaneous Subcutaneous -Post Debridement Size (cm) - Length 0.6 2 -Post Debridement Size (cm) - Width 0.9 1.5 -Post Debridement Size (cm) - Depth 0.1 0.1 -Total Square Cm 0.54 3.0 -Wound/Ulcer Outcome Not Healed Not Healed -Ulcer Cleansing Not Cleansed Rinsed/ Irrigated with Saline -Foul Odor after Cleansing No No -Bioengineered Tissue No No -Bleeding Controlled with NA NA -Offloading No No -Treatment Response Procedure Procedure Tolerated Well Tolerated Well #3 LEFT LATERAL LE -Time 16:12 15:10 -Correct Patient Yes Yes -Correct Side, Site, Position Yes Yes -Correct Procedure Yes Yes -Procedure Performed Yes Yes -Type of Procedure Debridement -Clinical Debridement Subcutaneous -Post Debridement Size (cm) - Length 3.5 11.8 -Post Debridement Size (cm) - Width 2.5 2.7 -Post Debridement Size (cm) - Depth 0.1 0.1 -Total Square Cm 8.75 31.86 -Wound/Ulcer Outcome Not Healed Not Healed -Ulcer Cleansing Not Cleansed Rinsed/ Irrigated with Saline -Foul Odor after Cleansing No No -Bioengineered Tissue No No -Bleeding Controlled with NA NA -Offloading No No -Treatment Response Procedure Procedure Tolerated Well Tolerated Well #2 LEFT DELUNA CLUSTER -Time 16:13 15:10 -Correct Patient Yes -Correct Side, Site, Position Yes -Correct Procedure Yes -Procedure Performed Yes -Type of Procedure Debridement -Clinical Debridement Subcutaneous -Post Debridement Size (cm) - Length 1 0.1 -Post Debridement Size (cm) - Width 0.3 0.1 -Post Debridement Size (cm) - Depth 0.1 0.1 -Total Square Cm 0.3 0.01 -Wound/Ulcer Outcome Not Healed Healed- Epithelialized -Ulcer Cleansing Not Cleansed -Foul Odor after Cleansing No -Bioengineered Tissue No -Bleeding Controlled with NA -Offloading No -Treatment Response Procedure Tolerated Well #1 RIGHT DELUNA CLUSTER -Time 16:13 15:11 -Correct Patient Yes Yes -Correct Side, Site, Position Yes Yes -Correct Procedure Yes Yes -Procedure Performed Yes Yes -Type of Procedure Debridement Debridement -Clinical Debridement Subcutaneous Subcutaneous -Post Debridement Size (cm) - Length 1.2 5.7 -Post Debridement Size (cm) - Width 1.3 5.1 -Post Debridement Size (cm) - Depth 0.1 0.1 -Total Square Cm 1.56 29.07 -Wound/Ulcer Outcome Not Healed Not Healed -Ulcer Cleansing Not Cleansed Not Cleansed -Foul Odor after Cleansing No No -Bioengineered Tissue No No -Bleeding Controlled with NA NA -Offloading No No -Treatment Response Procedure Procedure Tolerated Well Tolerated Well Pain Scale: 0-10 Numeric Is Patient Pain Free? Yes Wound debrided: left medial LE Laterality: Left Type of Debridement: Excisional debridement Anesthesia Used: 4% Lidocaine Solution Depth: Down to and including healthy tissue, in the subcutaneous layer Percentage of wound debrided: 100 Instrument Used: 5mm curette Tissue Removed: yellow slough, devitalized tissue Severity: Fat Layer Exposed Amount of bleeding with debridement: Mild Bleeding Controlled with: Compression and gauze Patient tolerated procedure well - Additional Wound Wound debrided: left lateral LE Laterality: Left Type of Debridement: Excisional debridement Anesthesia Used: 4% Lidocaine Solution Depth: Down to and including healthy tissue, in the subcutaneous layer Percentage of wound debrided: 70 Instrument Used: 5mm curette Tissue Removed: yellow slough, devitalized tissue Severity: Fat Layer Exposed Amount of bleeding with debridement: Mild Bleeding Controlled with: Compression and gauze Patient tolerated procedure: Patient tolerated procedure well - Additional Wound Wound debrided: right deluna cluster Laterality: Right Type of Debridement: Excisional debridement Anesthesia Used: 4% Lidocaine Solution Depth: Down to and including healthy tissue, in the subcutaneous layer Percentage of wound debrided: 100 Instrument Used: 5mm curette Tissue Removed: yellow slough, devitalized tissue Severity: Fat Layer Exposed Amount of bleeding with debridement: Mild Bleeding Controlled with: Compression and gauze Patient tolerated procedure: Patient tolerated procedure well - Additional Wound Wound debrided: left deluna cluster Laterality: Left Type of Debridement: Selective debridement Depth: Down to and including healthy tissue Percentage of wound debrided: 100 Instrument Used: 5mm curette Tissue Removed: devitalized tissue Amount of bleeding with debridement: None Patient tolerated procedure: Patient tolerated procedure well Assessment/Plan Active Problems Diabetes mellitus, insulin dependent (IDDM), uncontrolled (Chronic) Venous insufficiency of both lower extremities (Chronic) Venous ulcers of both lower extremities (Acute) Chronic venous hypertension w/ulcer and inflammation involv both sides (Chronic) Assessment: nonhealing venous ulcers of b/l lower extremities. Edema b/l lower extremities. IDDM Plan: David's wounds were evaluated and debrided today. We will continue to use Aquacel extra to his wounds and will try to treat edema with Surepress compression wraps. Wound culture doen due to increased pain and lack of improve ment. Will call with results if treatment needed. Vascular referral placed due to venous incompetence. Discussed importance of avoiding idle sitting and standing to treat his ulcers and encouraged to elevate his feet at or above the level of his heart as much as possible. Encouraged weight loss, tight glucose control as well. F/U in 1 week.
[2018-11-18 15:33] VITALS: BP 164/99; PULSE 91; RESP 16; TEMP 36.3; BMI 46.2
--- NOTE | 2018-11-18 17:09 | PCM.WC.PN ---
(1) Diabetes mellitus, insulin dependent (IDDM), uncontrolled Status: Chronic Current Visit: Yes Qualifiers: Glycemic state: with hyperglycemia Code(s): E10.65 - Type 1 diabetes mellitus with hyperglycemia (2) Venous insufficiency of both lower extremities Status: Chronic Current Visit: Yes Code(s): I87.2 - Venous insufficiency (chronic) (peripheral) (3) Venous ulcers of both lower extremities Status: Acute Current Visit: Yes Code(s): I87.2 - Venous insufficiency (chronic) (peripheral); L97.919 - Non-pressure chronic ulcer of unspecified part of right lower leg with unspecified severity; L97.929 - Non-pressure chronic ulcer of unspecified part of left lower leg with unspecified severity (4) Chronic venous hypertension w/ulcer and inflammation involv both sides Status: Chronic Current Visit: Yes Code(s): I87.333 - Chronic venous hypertension (idiopathic) with ulcer and inflammation of bilateral lower extremity; L97.919 - Non-pressure chronic ulcer of unspecified part of right lower leg with unspecified severity; L97.929 - Non-pressure chronic ulcer of unspecified part of left lower leg with unspecified severity Type of Wound Date of Service: 11/18/18 Chief Complaint: nonhealing ulcers of lower extremities b/l, edema History of Wound: David is a 48 year old male that presents to the wound center for evaluation and treatment of nonhelaing ulcers of his lower legs that have been present for approximately 4 weeks. He states that his legs became swollen and then developed blisters which itched and broke open leaving sores. He has seen his PCP and they started him on Keflex 500 mg QID and he has been taking this for 4 weeks with minimal improvement. He has also been applying antibiotic ointment. He was also started on lasix which has helped his swelling somewhat. He works at the [employer] and he is on his feet all the time there. He thinks his last A1C was in August and was 8.0%. He denies fever or chills or pain. Admits to drainage from the wounds that is clear. Progress of Wound: Kian is here for follow up of venous ulcers. He underwent vascular testing which showed normal arterial circulation but incompetence of veins in his lower extremities bilaterally right > left. He saw Dr. Steinberg for evaluation for possible venous ablation but he did not recommend any treatment at this time. He did not tolerate double layer tubigrips due to discomfort at the knee area from constriction but has been trying to be compliant. There has been improvment to the areas but excess dryness. He denies fever or chills. - Physical Exam Vital Signs Temp Pulse Resp BP 97.3 F L 91 16 164/99 H 11/18/18 15:33 11/18/18 15:33 11/18/18 15:33 11/18/18 15:33 General: Alert, Oriented x3, Cooperative, No apparent distress HEENT: Atraumatic, Normocephalic Oral: Moist Mucosa Abdomen: Obese Extremities: Edema Skin: Ulcer/ Wound Wound Measurements and Assessment WC - Nurse 1 - General Ulcer Measurement Start: 10/28/18 15:34 Freq: Status: Active Protocol: Activity Type Activity Date Activity User E-Sign Co-Sign Detail Recorded Client Recorded Date Recorded By Document 11/18/18 15:33 [facility] [id number] 11/18/18 15:52 [facility] 11/18/18 15:33 Wound Center Nurse 1 [Ulcer Assessment] #4 LEFT MEDIAL LE -Combined with other wound No -Current Size (cm) - Length 0.1 -Current Size (cm) - Width 0.1 -Current Size (cm) - Depth 0.1 -Total Square Cm 0.01 -Photo Taken No -Epithelialization Large 67-100% -Tunneling No -Undermining/Tunneling No -Circular Undermining No -Moisture (Milly-wound Skin Appearance Dry/Scaly ) -Temperature (Milly-wound Skin No Abnormality Appearance) (Pt Warm) -Tenderness on Palpation (Milly-wound Yes Skin Appearance) -Ulcer Cleansing Wound Cleanser -Foul Odor after Cleansing No #3 LEFT LATERAL LE -Combined with other wound No -Current Size (cm) - Length 9 -Current Size (cm) - Width 4.4 -Current Size (cm) - Depth 0.1 -Total Square Cm 39.6 -Photo Taken No -Epithelialization None Present -Tunneling No -Undermining/Tunneling No -Circular Undermining No -Exudate Amt Medium (34-66%) -Exudate Type Serosanguineous -Wound Margin Distinct, Outline Attached -Granulation Amt Medium (34-66%) -Granulation Quality Red -Slough/Fibrin Yes -Necrosis Amt Medium (34-66%) -Necrotic Tissue Type Adherent Slough -Texture (Milly-wound Skin Appearance) Scarring -Moisture (Milly-wound Skin Appearance Dry/Scaly ) -Color (Milly-wound Skin Appearance) Erythema -Temperature (Milly-wound Skin No Abnormality Appearance) (Pt Warm) -Tenderness on Palpation (Milly-wound Yes Skin Appearance) -Ulcer Cleansing Wound Cleanser -Foul Odor after Cleansing No -Anesthetic Used 5% Lidocaine Gel #1 RIGHT DELUNA CLUSTER -Combined with other wound No -Current Size (cm) - Length 5.8 -Current Size (cm) - Width 5.5 -Current Size (cm) - Depth 0.1 -Total Square Cm 31.90 -Photo Taken No -Epithelialization Small 1-33% -Tunneling No -Undermining/Tunneling No -Circular Undermining No -Exudate Amt Small (1-33%) -Exudate Type Serous -Wound Margin Distinct, Outline Attached -Granulation Amt Medium (34-66%) -Granulation Quality Red -Slough/Fibrin Yes -Necrosis Amt Medium (34-66%) -Necrotic Tissue Type Adherent Slough -Texture (Milly-wound Skin Appearance) Scarring -Moisture (Milly-wound Skin Appearance Dry/Scaly ) -Color (Milly-wound Skin Appearance) Erythema -Temperature (Milly-wound Skin No Abnormality Appearance) (Pt Warm) -Tenderness on Palpation (Milly-wound Yes Skin Appearance) -Ulcer Cleansing Wound Cleanser -Foul Odor after Cleansing No -Anesthetic Used 5% Lidocaine Gel [Edema Assessment] -Lower Limb Edema Present Yes -Right Calf (cm) 47.5 -Right Ankle (cm) 26 -Left Calf (cm) 44.8 -Left Ankle (cm) 25 WC - Nurse 2 - General Ulcer CM Notes Start: 10/28/18 15:34 Freq: Status: Active Protocol: Activity Type Activity Date Activity User E-Sign Co-Sign Detail Recorded Client Recorded Date Recorded By Document 11/18/18 16:01 [id number] 11/18/18 16:10 11/18/18 16:01 Wound Center Nurse 2 [Procedure/Treatment] #4 LEFT MEDIAL LE -Time 16:04 -Correct Patient Yes -Correct Side, Site, Position Yes -Correct Procedure Yes -Procedure Performed Yes -Clinical Debridement Selective -Post Debridement Size (cm) - Length 0.1 -Post Debridement Size (cm) - Width 0.1 -Post Debridement Size (cm) - Depth 0.1 -Total Square Cm 0.01 -Wound/Ulcer Outcome Healed- Epithelialized -Bleeding Controlled with NA -Offloading No -Treatment Response Procedure Tolerated Well #3 LEFT LATERAL LE -Time 16:05 -Correct Patient Yes -Correct Side, Site, Position Yes -Correct Procedure Yes -Procedure Performed Yes -Type of Procedure Debridement -Clinical Debridement Subcutaneous -Post Debridement Size (cm) - Length 7.8 -Post Debridement Size (cm) - Width 2 -Post Debridement Size (cm) - Depth 0.1 -Total Square Cm 15.6 -Wound/Ulcer Outcome Not Healed -Ulcer Cleansing Rinsed/ Irrigated with Saline -Foul Odor after Cleansing No -Bioengineered Tissue No -Bleeding Controlled with NA -Offloading No -Treatment Response Procedure Tolerated Well #1 RIGHT DELUNA CLUSTER -Time 16:05 -Correct Patient Yes -Correct Side, Site, Position Yes -Correct Procedure Yes -Procedure Performed Yes -Type of Procedure Debridement -Clinical Debridement Subcutaneous -Post Debridement Size (cm) - Length 1 -Post Debridement Size (cm) - Width 0.5 -Post Debridement Size (cm) - Depth 0.1 -Total Square Cm 0.5 -Wound/Ulcer Outcome Not Healed -Ulcer Cleansing Rinsed/ Irrigated with Saline -Foul Odor after Cleansing No -Bioengineered Tissue No -Bleeding Controlled with Pressure -Offloading No -Treatment Response Procedure Tolerated Well [See Physician Procedure note for Specifics] Pain Scale: 0-10 Numeric [Pain] -Is Patient Pain Free? Yes Psych/Mental Status: Normal Affect, Appropriate Debridement Note Post-Debridement Measurements/Treatment WC - Nurse 2 - General Ulcer CM Notes Start: 10/28/18 15:34 Freq: Status: Active Protocol: Activity Type Activity Date Activity User E-Sign Co-Sign Detail Recorded Client Recorded Date Recorded By Document 10/28/18 16:06 [id number] 10/28/18 16:14 CS Document 11/04/18 15:01 [id number] 11/04/18 15:06 CS Document 11/18/18 16:01 [id number] 11/18/18 16:10 CS 10/28/18 11/04/18 11/18/18 16:06 15:01 16:01 Wound Center Nurse 2 #4 LEFT MEDIAL LE -Time 16:12 15:06 16:04 -Correct Patient Yes Yes Yes -Correct Side, Site, Position Yes Yes Yes -Correct Procedure Yes Yes Yes -Procedure Performed Yes Yes Yes -Type of Procedure Debridement Debridement -Clinical Debridement Subcutaneous Subcutaneous Selective -Post Debridement Size (cm) - Length 0.6 2 0.1 -Post Debridement Size (cm) - Width 0.9 1.5 0.1 -Post Debridement Size (cm) - Depth 0.1 0.1 0.1 -Total Square Cm 0.54 3.0 0.01 -Wound/Ulcer Outcome Not Healed Not Healed Healed- Epithelialized -Ulcer Cleansing Not Cleansed Rinsed/ Irrigated with Saline -Foul Odor after Cleansing No No -Bioengineered Tissue No No -Bleeding Controlled with NA NA NA -Offloading No No No -Treatment Response Procedure Procedure Procedure Tolerated Well Tolerated Well Tolerated Well #3 LEFT LATERAL LE -Time 16:12 15:10 16:05 -Correct Patient Yes Yes Yes -Correct Side, Site, Position Yes Yes Yes -Correct Procedure Yes Yes Yes -Procedure Performed Yes Yes Yes -Type of Procedure Debridement Debridement -Clinical Debridement Subcutaneous Subcutaneous -Post Debridement Size (cm) - Length 3.5 11.8 7.8 -Post Debridement Size (cm) - Width 2.5 2.7 2 -Post Debridement Size (cm) - Depth 0.1 0.1 0.1 -Total Square Cm 8.75 31.86 15.6 -Wound/Ulcer Outcome Not Healed Not Healed Not Healed -Ulcer Cleansing Not Cleansed Rinsed/ Rinsed/ Irrigated with Irrigated with Saline Saline -Foul Odor after Cleansing No No No -Bioengineered Tissue No No No -Bleeding Controlled with NA NA NA -Offloading No No No -Treatment Response Procedure Procedure Procedure Tolerated Well Tolerated Well Tolerated Well #2 LEFT DELUNA CLUSTER -Time 16:13 15:10 -Correct Patient Yes -Correct Side, Site, Position Yes -Correct Procedure Yes -Procedure Performed Yes -Type of Procedure Debridement -Clinical Debridement Subcutaneous -Post Debridement Size (cm) - Length 1 0.1 -Post Debridement Size (cm) - Width 0.3 0.1 -Post Debridement Size (cm) - Depth 0.1 0.1 -Total Square Cm 0.3 0.01 -Wound/Ulcer Outcome Not Healed Healed- Epithelialized -Ulcer Cleansing Not Cleansed -Foul Odor after Cleansing No -Bioengineered Tissue No -Bleeding Controlled with NA -Offloading No -Treatment Response Procedure Tolerated Well #1 RIGHT DELUNA CLUSTER -Time 16:13 15:11 16:05 -Correct Patient Yes Yes Yes -Correct Side, Site, Position Yes Yes Yes -Correct Procedure Yes Yes Yes -Procedure Performed Yes Yes Yes -Type of Procedure Debridement Debridement Debridement -Clinical Debridement Subcutaneous Subcutaneous Subcutaneous -Post Debridement Size (cm) - Length 1.2 5.7 1 -Post Debridement Size (cm) - Width 1.3 5.1 0.5 -Post Debridement Size (cm) - Depth 0.1 0.1 0.1 -Total Square Cm 1.56 29.07 0.5 -Wound/Ulcer Outcome Not Healed Not Healed Not Healed -Ulcer Cleansing Not Cleansed Not Cleansed Rinsed/ Irrigated with Saline -Foul Odor after Cleansing No No No -Bioengineered Tissue No No No -Bleeding Controlled with NA NA Pressure -Offloading No No No -Treatment Response Procedure Procedure Procedure Tolerated Well Tolerated Well Tolerated Well Pain Scale: 0-10 Numeric Is Patient Pain Free? Yes Yes Wound debrided: left medial LE Laterality: Left Type of Debridement: Selective debridement Anesthesia Used: 4% Lidocaine Solution Depth: Down to and including healthy tissue, in the subcutaneous layer Percentage of wound debrided: 100 Instrument Used: 5mm curette Tissue Removed: yellow slough, devitalized tissue Severity: Limited To Skin Breakdown Amount of bleeding with debridement: None Patient tolerated procedure well - Additional Wound Wound debrided: left lateral LE Laterality: Left Type of Debridement: Excisional debridement Anesthesia Used: 4% Lidocaine Solution Depth: Down to and including healthy tissue, in the subcutaneous layer Percentage of wound debrided: 100 Instrument Used: 5mm curette Tissue Removed: yellow slough, devitalized tissue Severity: Fat Layer Exposed Amount of bleeding with debridement: Mild Bleeding Controlled with: Compression and gauze Patient tolerated procedure: Patient tolerated procedure well - Additional Wound Wound debrided: right deluna cluster Laterality: Right Type of Debridement: Excisional debridement Anesthesia Used: 4% Lidocaine Solution Depth: Down to and including healthy tissue, in the subcutaneous layer Percentage of wound debrided: 100 Instrument Used: 5mm curette Tissue Removed: yellow slough, devitalized tissue Severity: Fat Layer Exposed Amount of bleeding with debridement: Mild Bleeding Controlled with: Compression and gauze Patient tolerated procedure: Patient tolerated procedure well Assessment/Plan Active Problems Diabetes mellitus, insulin dependent (IDDM), uncontrolled (Chronic) Venous insufficiency of both lower extremities (Chronic) Venous ulcers of both lower extremities (Acute) Chronic venous hypertension w/ulcer and inflammation involv both sides (Chronic) Assessment: nonhealing venous ulcers of b/l lower extremities. Edema b/l lower extremities. IDDM Plan: David's wounds were evaluated and debrided today. We will change to collagen hydrogel with adaptic to his wounds and will try to treat edema with double layer tubigrips. Vascular doesn't feel that he is a candidate for intervention at this time. Discussed importance of avoiding idle sitting and standing to treat his ulcers and encouraged to elevate his feet at or above the level of his heart as much as possible. Encouraged weight loss, tight glucose control as well. F/U in 1 week.
--- NOTE | 2018-11-18 17:13 | PN.PCM_ITS ---
(1) Diabetes mellitus, insulin dependent (IDDM), uncontrolled Status: Chronic Current Visit: Yes Qualifiers: Glycemic state: with hyperglycemia Code(s): E10.65 - Type 1 diabetes mellitus with hyperglycemia (2) Venous insufficiency of both lower extremities Status: Chronic Current Visit: Yes Code(s): I87.2 - Venous insufficiency (chronic) (peripheral) (3) Venous ulcers of both lower extremities Status: Acute Current Visit: Yes Code(s): I87.2 - Venous insufficiency (chr onic) (peripheral); L97.919 - Non-pressure chronic ulcer of unspecified part of right lower leg with unspecified severity; L97.929 - Non-pressure chronic ulcer of unspecified part of left lower leg with unspecified severity (4) Chronic venous hypertension w/ulcer and inflammation involv both sides Status: Chronic Current Visit: Yes Code(s): I87.333 - Chronic venous hypertension (idiopathic) with ulcer and inflammation of bilateral lower extremity; L97.919 - Non-pressure chronic ulcer of unspecified part of right lower leg with unspecified severity; L97.929 - Non-pressure chronic ulcer of unspecified part of left lower leg with unspecified severity Type of Wound Date of Service: 11/18/18 Chief Complaint: nonhealing ulcers of lower extremities b/l, edema History of Wound: David is a 48 year old male that presents to the wound center for evaluation and treatment of nonhelaing ulcers of his lower legs that have been present for approximately 4 weeks. He states that his legs became swollen and then developed blisters which itched and broke open leaving sores. He has seen his PCP and they started him on Keflex 500 mg QID and he has been taking this for 4 weeks with minimal improvement. He has also been applying antibiotic ointment. He was also started on lasix which has helped his swelling somewhat. 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 He thinks his last A1C was in August and was 8.0%. He denies fever or chills or pain. Admits to drainage from the wounds that is clear. Progress of Wound: Kian is here for follow up of venous ulcers. He underwent vascular testing which showed normal arterial circulation but incompetence of veins in his lower extremities bilaterally right > left. He saw Dr. Steinberg for evaluation for possible venous ablation but he did not recommend any treatment at this time. He did not tolerate double layer tubigrips due to discomfort at the knee area from constriction but has been trying to be compliant. There has been improvment to the areas but excess dryness. He denies fever or chills. - Physical Exam Vital Signs Temp Pulse Resp BP 97.3 F L 91 16 164/99 H 11/18/18 15:33 11/18/18 15:33 11/18/18 15:33 11/18/18 15:33 General: Alert, Oriented x3, Cooperative, No apparent distress HEENT: Atraumatic, Normocephalic Oral: Moist Mucosa Abdomen: Obese Extremities: Edema Skin: Ulcer/ Wound Wound Measurements and Assessment WC - Nurse 1 - General Ulcer Measurement Start: 10/28/18 15:34 Freq: Status: Active Protocol: Activity Type Activity Date Activity User E-Sign Co-Sign Detail Recorded Client Recorded Date Recorded By Document 11/18/18 15:33 [facility] [id number] 11/18/18 15:52 [facility] 11/18/18 15:33 Wound Center Nurse 1 [Ulcer Assessment] #4 LEFT MEDIAL LE -Combined with other wound No -Current Size (cm) - Length 0.1 -Current Size (cm) - Width 0.1 -Current Size (cm) - Depth 0.1 -Total Square Cm 0.01 -Photo Taken No -Epithelialization Large 67-100% -Tunneling No -Undermining/Tunneling No -Circular Undermining No -Moisture (Milly-wound Skin Appearance Dry/Scaly ) -Temperature (Milly-wound Skin No Abnormality Appearance) (Pt Warm) -Tenderness on Palpation (Milly-wound Yes Skin Appearance) -Ulcer Cleansing Wound Cleanser -Foul Odor after Cleansing No #3 LEFT LATERAL LE -Combined with other wound No -Current Size (cm) - Length 9 -Current Size (cm) - Width 4.4 -Current Size (cm) - Depth 0.1 -Total Square Cm 39.6 -Photo Taken No -Epithelialization None Present -Tunneling No -Undermining/Tunneling No -Circular Undermining No -Exudate Amt Medium (34-66%) -Exudate Type Serosanguineous -Wound Margin Distinct, Outline Attached -Granulation Amt Medium (34-66%) -Granulation Quality Red -Slough/Fibrin Yes -Necrosis Amt Medium (34-66%) -Necrotic Tissue Type Adherent Slough -Texture (Milly-wound Skin Appearance) Scarring -Moisture (Milly-wound Skin Appearance Dry/Scaly ) -Color (Milly-wound Skin Appearance) Erythema -Temperature (Milly-wound Skin No Abnormality Appearance) (Pt Warm) -Tenderness on Palpation (Milly-wound Yes Skin Appearance) -Ulcer Cleansing Wound Cleanser -Foul Odor after Cleansing No -Anesthetic Used 5% Lidocaine Gel #1 RIGHT DELUNA CLUSTER -Combined with other wound No -Current Size (cm) - Length 5.8 -Current Size (cm) - Width 5.5 -Current Size (cm) - Depth 0.1 -Total Square Cm 31.90 -Photo Taken No -Epithelialization Small 1-33% -Tunneling No -Undermining/Tunneling No -Circular Undermining No -Exudate Amt Small (1-33%) -Exudate Type Serous -Wound Margin Distinct, Outline Attached -Granulation Amt Medium (34-66%) -Granulation Quality Red -Slough/Fibrin Yes -Necrosis Amt Medium (34-66%) -Necrotic Tissue Type Adherent Slough -Texture (Milly-wound Skin Appearance) Scarring -Moisture (Milly-wound Skin Appearance Dry/Scaly ) -Color (Milly-wound Skin Appearance) Erythema -Temperature (Milly-wound Skin No Abnormality Appearance) (Pt Warm) -Tenderness on Palpation (Milly-wound Yes Skin Appearance) -Ulcer Cleansing Wound Cleanser -Foul Odor after Cleansing No -Anesthetic Used 5% Lidocaine Gel [Edema Assessment] -Lower Limb Edema Present Yes -Right Calf (cm) 47.5 -Right Ankle (cm) 26 -Left Calf (cm) 44.8 -Left Ankle (cm) 25 WC - Nurse 2 - General Ulcer CM Notes Start: 10/28/18 15:34 Freq: Status: Active Protocol: Activity Type Activity Date Activity User E-Sign Co-Sign Detail Recorded Client Recorded Date Recorded By Document 11/18/18 16:01 [id number] 11/18/18 16:10 11/18/18 16:01 Wound Center Nurse 2 [Procedure/Treatment] #4 LEFT MEDIAL LE -Time 16:04 -Correct Patient Yes -Correct Side, Site, Position Yes -Correct Procedure Yes -Procedure Performed Yes -Clinical Debridement Selective -Post Debridement Size (cm) - Length 0.1 -Post Debridement Size (cm) - Width 0.1 -Post Debridement Size (cm) - Depth 0.1 -Total Square Cm 0.01 -Wound/Ulcer Outcome Healed- Epithelialized -Bleeding Controlled with NA -Offloading No -Treatment Response Procedure Tolerated Well #3 LEFT LATERAL LE -Time 16:05 -Correct Patient Yes -Correct Side, Site, Position Yes -Correct Procedure Yes -Procedure Performed Yes -Type of Procedure Debridement -Clinical Debridement Subcutaneous -Post Debridement Size (cm) - Length 7.8 -Post Debridement Size (cm) - Width 2 -Post Debridement Size (cm) - Depth 0.1 -Total Square Cm 15.6 -Wound/Ulcer Outcome Not Healed -Ulcer Cleansing Rinsed/ Irrigated with Saline -Foul Odor after Cleansing No -Bioengineered Tissue No -Bleeding Controlled with NA -Offloading No -Treatment Response Procedure Tolerated Well #1 RIGHT DELUNA CLUSTER -Time 16:05 -Correct Patient Yes -Correct Side, Site, Position Yes -Correct Procedure Yes -Procedure Performed Yes -Type of Procedure Debridement -Clinical Debridement Subcutaneous -Post Debridement Size (cm) - Length 1 -Post Debridement Size (cm) - Width 0.5 -Post Debridement Size (cm) - Depth 0.1 -Total Square Cm 0.5 -Wound/Ulcer Outcome Not Healed -Ulcer Cleansing Rinsed/ Irrigated with Saline -Foul Odor after Cleansing No -Bioengineered Tissue No -Bleeding Controlled with Pressure -Offloading No -Treatment Response Procedure Tolerated Well [See Physician Procedure note for Specifics] Pain Scale: 0-10 Numeric [Pain] -Is Patient Pain Free? Yes Psych/Mental Status: Normal Affect, Appropriate Debridement Note Post-Debridement Measurements/Treatment WC - Nurse 2 - General Ulcer CM Notes Start: 10/28/18 15:34 Freq: Status: Active Protocol: Activity Type Activity Date Activity User E-Sign Co-Sign Detail Recorded Client Recorded Date Recorded By Document 10/28/18 16:06 [id number] 10/28/18 16:14 CS Document 11/04/18 15:01 [id number] 11/04/18 15:06 CS Document 11/18/18 16:01 [id number] 11/18/18 16:10 CS 10/28/18 11/04/18 11/18/18 16:06 15:01 16:01 Wound Center Nurse 2 #4 LEFT MEDIAL LE -Time 16:12 15:06 16:04 -Correct Patient Yes Yes Yes -Correct Side, Site, Position Yes Yes Yes -Correct Procedure Yes Yes Yes -Procedure Performed Yes Yes Yes -Type of Procedure Debridement Debridement -Clinical Debridement Subcutaneous Subcutaneous Selective -Post Debridement Size (cm) - Length 0.6 2 0.1 -Post Debridement Size (cm) - Width 0.9 1.5 0.1 -Post Debridement Size (cm) - Depth 0.1 0.1 0.1 -Total Square Cm 0.54 3.0 0.01 -Wound/Ulcer Outcome Not Healed Not Healed Healed- Epithelialized -Ulcer Cleansing Not Cleansed Rinsed/ Irrigated with Saline -Foul Odor after Cleansing No No -Bioengineered Tissue No No -Bleeding Controlled with NA NA NA -Offloading No No No -Treatment Response Procedure Procedure Procedure Tolerated Well Tolerated Well Tolerated Well #3 LEFT LATERAL LE -Time 16:12 15:10 16:05 -Correct Patient Yes Yes Yes -Correct Side, Site, Position Yes Yes Yes -Correct Procedure Yes Yes Yes -Procedure Performed Yes Yes Yes -Type of Procedure Debridement Debridement -Clinical Debridement Subcutaneous Subcutaneous -Post Debridement Size (cm) - Length 3.5 11.8 7.8 -Post Debridement Size (cm) - Width 2.5 2.7 2 -Post Debridement Size (cm) - Depth 0.1 0.1 0.1 -Total Square Cm 8.75 31.86 15.6 -Wound/Ulcer Outcome Not Healed Not Healed Not Healed -Ulcer Cleansing Not Cleansed Rinsed/ Rinsed/ Irrigated with Irrigated with Saline Saline -Foul Odor after Cleansing No No No -Bioengineered Tissue No No No -Bleeding Controlled with NA NA NA -Offloading No No No -Treatment Response Procedure Procedure Procedure Tolerated Well Tolerated Well Tolerated Well #2 LEFT DELUNA CLUSTER -Time 16:13 15:10 -Correct Patient Yes -Correct Side, Site, Position Yes -Correct Procedure Yes -Procedure Performed Yes -Type of Procedure Debridement -Clinical Debridement Subcutaneous -Post Debridement Size (cm) - Length 1 0.1 -Post Debridement Size (cm) - Width 0.3 0.1 -Post Debridement Size (cm) - Depth 0.1 0.1 -Total Square Cm 0.3 0.01 -Wound/Ulcer Outcome Not Healed Healed- Epithelialized -Ulcer Cleansing Not Cleansed -Foul Odor after Cleansing No -Bioengineered Tissue No -Bleeding Controlled with NA -Offloading No -Treatment Response Procedure Tolerated Well #1 RIGHT DELUNA CLUSTER -Time 16:13 15:11 16:05 -Correct Patient Yes Yes Yes -Correct Side, Site, Position Yes Yes Yes -Correct Procedure Yes Yes Yes -Procedure Performed Yes Yes Yes -Type of Procedure Debridement Debridement Debridement -Clinical Debridement Subcutaneous Subcutaneous Subcutaneous -Post Debridement Size (cm) - Length 1.2 5.7 1 -Post Debridement Size (cm) - Width 1.3 5.1 0.5 -Post Debridement Size (cm) - Depth 0.1 0.1 0.1 -Total Square Cm 1.56 29.07 0.5 -Wound/Ulcer Outcome Not Healed Not Healed Not Healed -Ulcer Cleansing Not Cleansed Not Cleansed Rinsed/ Irrigated with Saline -Foul Odor after Cleansing No No No -Bioengineered Tissue No No No -Bleeding Controlled with NA NA Pressure -Offloading No No No -Treatment Response Procedure Procedure Procedure Tolerated Well Tolerated Well Tolerated Well Pain Scale: 0-10 Numeric Is Patient Pain Free? Yes Yes Wound debrided: left medial LE Laterality: Left Type of Debridement: Selective debridement Anesthesia Used: 4% Lidocaine Solution Depth: Down to and including healthy tissue, in the subcutaneous layer Percentage of wound debrided: 100 Instrument Used: 5mm curette Tissue Removed: yellow slough, devitalized tissue Severity: Limited To Skin Breakdown Amount of bleeding with debridement: None Patient tolerated procedure well - Additional Wound Wound debrided: left lateral LE Laterality: Left Type of Debridement: Excisional debridement Anesthesia Used: 4% Lidocaine Solution Depth: Down to and including healthy tissue, in the subcutaneous layer Percentage of wound debrided: 100 Instrument Used: 5mm curette Tissue Removed: yellow slough, devitalized tissue Severity: Fat Layer Exposed Amount of bleeding with debridement: Mild Bleeding Controlled with: Compression and gauze Patient tolerated procedure: Patient tolerated procedure well - Additional Wound Wound debrided: right deluna cluster Laterality: Right Type of Debridement: Excisional debridement Anesthesia Used: 4% Lidocaine Solution Depth: Down to and including healthy tissue, in the subcutaneous layer Percentage of wound debrided: 100 Instrument Used: 5mm curette Tissue Removed: yellow slough, devitalized tissue Severity: Fat Layer Exposed Amount of bleeding with debridement: Mild Bleeding Controlled with: Compression and gauze Patient tolerated procedure: Patient tolerated procedure well Assessment/Plan Active Problems Diabetes mellitus, insulin dependent (IDDM), uncontrolled (Chronic) Venous insufficiency of both lower extremities (Chronic) Venous ulcers of both lower extremities (Acute) Chronic venous hypertension w/ulcer and inflammation involv both sides (Chronic) Assessment: nonhealing venous ulcers of b/l lower extremities. Edema b/l lower extremities. IDDM Plan: David's wounds were evaluated and debrided today. We will change to collagen hydrogel with adaptic to his wounds and will try to treat edema with double layer tubigrips. Vascular doesn't feel that he is a candidate for intervention at this time. Discussed importance of avoiding idle sitting and standing to treat his ulcers and encouraged to elevate his feet at or above the level of his heart as much as possible. Encouraged weight loss, tight glucose control as well. F/U in 1 week.
== END 2018-11-21 23:59 ==
LOC: WC 15:00
PROVIDERS: Family Provider Internal Medicine; PCP Internal Medicine; Referring Provider Family Medicine; Visit Provider Family Medicine
DX: E10.622 Type 1 diabetes mellitus with other skin ulcer (principal); E10.51 Type 1 diabetes mellitus with diabetic peripheral angiopathy without gangrene; E10.65 Type 1 diabetes mellitus with hyperglycemia; I87.333 Chronic venous hypertension (idiopathic) with ulcer and inflammation of bilateral lower extremity; I87.2 Venous insufficiency (chronic) (peripheral); L97.812 Non-pressure chronic ulcer of other part of right lower leg with fat layer exposed; L97.822 Non-pressure chronic ulcer of other part of left lower leg with fat layer exposed
CPT/HCPCS: 11042; 11045; 29581; 87070; 87075; 87077; 87186; 87205; 99213; G0463

== ENCOUNTER → 2018-12-05 14:55 | Outpatient (CLI) | payer OTHER, SELFPAY ==
[2018-12-02 14:11] VITALS: BMI 46.2
--- NOTE | 2018-12-05 14:58 | RAD_ITS ---
STUDY: X-RAY - LEFT SHOULDER REASON FOR EXAM: Male, 48 years old. Pain TECHNIQUE: 2 view(s) of the shoulder. COMPARISON: July 26, 2018 FINDINGS: There is a healed fracture involving the proximal end of the humerus. The glenohumeral articulation is normal. Mild degenerative changes of the acromioclavicular joint. RAD/Shoulder min 2 Views IMPRESSION: No acute fracture. A healed fracture involving the proximal end of the left humerus Electronically Signed: Lionel Smith MD at 1:22 EST Tel , Service support ,
== END ==
PROVIDERS: Family Provider Internal Medicine; PCP Internal Medicine; Referring Provider Physician Assistant; Visit Provider Physician Assistant
DX: S42.209A Unspecified fracture of upper end of unspecified humerus, initial encounter for closed fracture (principal)
CPT/HCPCS: 73030

== ENCOUNTER 2018-12-06 15:30 | Outpatient (RCR) | payer OTHER, BC, SELFPAY ==
--- NOTE | 2018-07-06 07:52 | HP.PTEVAL ---
Patient's Visit Information ALEXEI BARRIOS is a 47 year old M referred to Physical Therapy by Slime Noel DO with a diagnosis of L humeral Fx. Date of Evaluation: 07/06/18 Physical Therapist: Brandon Oviedo PT, - Visit Plan Frequency: 3x /Week Duration: 6 Weeks Plan: L shoulder P/AA/AROM ex's, strengthening, scapular stab ex's, overhead chela ex's, UBE, and HEP. - Subjective Subjective: DOI: 05/26/18. Pt reports he fell while carrying a tray of juices while at work, which resulted in fracturing his L humerus. Pt reports he didnt have to have surgery yet, as they are still watching to see if his fracture fully heals. Pt notes he also has a slight tear in his rotator cuff. Pt notes his surgeon wants to wait to see if that tear heals or if he will require surgery in the future. Pt is L hand dominant. Pt reports he is supposed to have his sling on anytime he is up on his feet. Occasional sleep difficulty secondary to pain. Pt is still sleeping in a recliner due to his pain. Pt reports intermittent L UE radiculopathy since DOI that will extend to his fingers. 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 2/10 pain at rest, 4/10 at worst (as the day goes on). - Pain L shoulder Pain Intensity (Out of 10): 2 Pain Intensity Range: 4 - Objective Neuro: B UE sensation is WNL to light touch. B bicepital reflex= 1/3. Observation: Pt sits with increases T/S kyphosis. No obvious deformity present at this time. ROM: R shoulder flex= 130, abd= 115, ER= 55, IR WNL; L shoulder flex= 30, abd= 30, ER= 0, IR is severely limited. Strength: R shoulder is 5/5 throughout. L shoulder is 2-/5 throughout. - Goals Goal 1:: Decrease L shoulder pain x 50% to aid with sleep Goal Time Frame: 4-6 Weeks Goal 2:: Increase L shoulder flex and abduction ROM x 50 degrees to aid with overhead activity Goal Time Frame: 4-6 Weeks Goal 3:: Increase L shoulder strength x 1 grade to aid with RTW Goal Time Frame: 4-6 Weeks Goal 4:: I with HEP Goal Time Frame: 4-6 Weeks - Rehabilitation Potential Physical Therapy Diagnosis: L UE pain, weakness, and limited ROM secondary to L humeral Fx Rehabilitation Potential: Good - Anticipated Interventions Patient/Client Instruction: Educate patient on: Condition, Plan of Care For the Purpose of:: To improve self management Therapeutic Exercise to Include: Strength training, Endurance training, Body mechanics, Postural training, Passive ROM, Active ROM, Scapular Strength/Stabilization For the Purpose of:: To decrease pain, To increase ROM, To improve muscle performance and motor function Cryotherapy (ice pack, ice massage): Yes For the Purpose of:: To decrease pain Thank you for the opportunity to evaluate your patient. For Medicare and Medicare HMO plans, please review the plan of care and approve it. It will need to be FAXED BACK to us at [phone] for Medicare purposes. Please let me know if there are questions or concerns regarding this plan of care. Physician Signature: Date:
--- NOTE | 2018-08-05 09:03 | HP.PTREVAL_ITS ---
Slime Noel, DO, It has been my pleasure to treat ALEXEI BARRIOS over the last 12 visits for L humeral Fx. Please see the progress note below for an update on the physical therapy plan of care! Subjective: Pt reports his L shoulder is still stiff this date. He has trouble with overhead movements. Objective/Function: L shoulder pain 01/01 this date. L shoulder ROM: flex= 70, abd= 50, ER= 15, IR= moderately limited. L shoulder MMT: grossly 3-/5 throughout. Pt is progressing well at this time, but still shows need for continued skilled therapy to increase ROM and strength Plan Plan: Attempt to get 12 more visits approved Goals Goal 1:: Decrease L shoulder pain x 50% to aid with sleep Goal Time Frame: 4-6 Weeks Goal 2:: Increase L shoulder flex and abduction ROM x 50 degrees to aid with overhead activity Goal Time Frame: 4-6 Weeks Goal 3:: Increase L shoulder strength x 1 grade to aid with RTW Goal Time Frame: 4-6 Weeks Goal 4:: I with HEP Goal Time Frame: 4-6 Weeks Anticipated Interventions Patient/Client Instruction: Educate patient on: Condition, Plan of Care For the Purpose of:: To improve self management Therapeutic Exercise to Include: Strength training, Endurance training, Body mechanics, Postural training, Passive ROM, Active ROM, Scapular Strength/ Stabilization For the Purpose of:: To decrease pain, To increase ROM, To improve muscle performance and motor function Cryotherapy (ice pack, ice massage): Yes For the Purpose of:: To decrease pain Please do not hesitate to contact me at [phone] by phone or Fax: if you have questions or concerns regarding this new plan of care! Sincerely, Brandon Oviedo, PT,
--- NOTE | 2018-09-23 15:27 | HP.PTREVAL_ITS ---
Slime Noel, DO, It has been my pleasure to treat ALEXEI BARRIOS over the last 30 visits for L humeral Fx. Please see the progress note below for an update on the physical therapy plan of care! Subjective: No pain at this time. Objective/Function: L shoulder pain ranges from 0/10-3/10. L shoulder ROM: flex= 80, abd= 55, ER= 25, IR moderately limited. L shoulder MMT: 4-/5 throughout. Pt is progressing toward goals at this time Plan Plan: Attempt to get 12 more visits approved to focus on ROM and strengthening. Goals Goal 1:: Decrease L shoulder pain x 50% to aid with sleep Goal Time Frame: 4-6 Weeks Goal Progress: Progressing Goal 2:: Increase L shoulder flex and abduction ROM x 50 degrees to aid with overhead activity Goal Time Frame: 4-6 Weeks Goal Progress: Progressing Goal 3:: Increase L shoulder strength x 1 grade to aid with RTW Goal Time Frame: 4-6 Weeks Goal Progress: Progressing Goal 4:: I with HEP Goal Time Frame: 4-6 Weeks Goal Progress: Progressing Anticipated Interventions Patient/Client Instruction: Educate patient on: Condition, Plan of Care For the Purpose of:: To improve self management Therapeutic Exercise to Include: Strength training, Endurance training, Body mechanics, Postural training, Passive ROM, Active ROM, Scapular Strengt h/Stabilization For the Purpose of:: To decrease pain, To increase ROM, To improve muscle performance and motor function Cryotherapy (ice pack, ice massage): Yes For the Purpose of:: To decrease pain Please do not hesitate to contact me at [phone] by phone or if you have questions or concerns regarding this new plan of care! Sincerely, Brandon Oviedo, PT,
--- NOTE | 2018-12-06 16:07 | HP.PTDCSUM ---
HP - PT D/C Summary It has been my pleasure to treat ALEXEI BARRIOS under orders from Slime Noel DO, for the diagnosis of L humeral Fx for a total of 42 visit(s). Discharge Date: Please see the following information for a summary of their discharge status. - Subjective Subjective: Minor pain this date. Pt still reports he is limited with IADL's - Pain L shoulder Pain Intensity (Out of 10): 1 - Overall Improvement % Improvement: 30 - Objective Objective/Function: L shoulder pain ranges from 1-2/10. L shoulder ROM: flex= 95, abd= 70, ER= 15, IR moderately limited. L shoulder MMT: L shoulder 4+/5 throughout. Pt has progressed well with pain and strength. Still limited with AROM - Goals Goal 1:: Decrease L shoulder pain x 50% to aid with sleep Goal Progress: Progressing Goal 2:: Increase L shoulder flex and abduction ROM x 50 degrees to aid with overhead activity Goal Progress: Progressing Goal 3:: Increase L shoulder strength x 1 grade to aid with RTW Goal Progress: Progressing Goal 4:: I with HEP Goal Progress: Progressing - Plan Plan: Discontinue, RTD - D/C Information If there are questions or concerns regarding this patient's physical therapy, please feel free to call me at [phone]. Thank you for the referral of this patient. Sincerely, Brandon Oviedo, PT, ATC
== END 2018-12-06 19:00 | disposition home or self-care (01) ==
LOC: PT 15:30
PROVIDERS: Family Provider Internal Medicine; PCP Internal Medicine; Visit Provider Orthopaedic Surgery
DX: S42.232D 3-part fracture of surgical neck of left humerus, subsequent encounter for fracture with routine healing (principal)
CPT/HCPCS: 97110; 97113; 97140; 97162; 97530

== ENCOUNTER 2018-12-16 15:00 | Outpatient (RCR) | payer BC, SELFPAY ==
[2018-11-22 01:20] VITALS: BP 164/99; PULSE 91; RESP 16; TEMP 36.3
[2018-11-25 15:36] VITALS: BP 143/74; PULSE 80; RESP 18; TEMP 36.4; BMI 46.2
--- NOTE | 2018-11-25 17:55 | PCM.WC.PN ---
(1) Diabetes mellitus, insulin dependent (IDDM), uncontrolled Status: Chronic Qualifiers: Glycemic state: with hyperglycemia Code(s): E10.65 - Type 1 diabetes mellitus with hyperglycemia (2) Venous insufficiency of both lower extremities Status: Chronic Code(s): I87.2 - Venous insufficiency (chronic) (peripheral) (3) Edema of both legs Status: Chronic Code(s): R60.0 - Localized edema (4) Venous ulcers of both lower extremities Status: Chronic Code(s): I87.2 - Venous insufficiency (chronic) (peripheral); L97.919 - Non-pressure chronic ulcer of unspecified part of right lower leg with unspecified severity; L97.929 - Non-pressure chronic ulcer of unspecified part of left lower leg with unspecified severity (5) Chronic venous hypertension w/ulcer and inflammation involv both sides Status: Chronic Code(s): I87.333 - Chronic venous hypertension (idiopathic) with ulcer and inflammation of bilateral lower extremity; L97.919 - Non-pressure chronic ulcer of unspecified part of right lower leg with unspecified severity; L97.929 - Non-pressure chronic ulcer of unspecified part of left lower leg with unspecified severity Type of Wound Date of Service: 11/25/18 Chief Complaint: nonhealing ulcers of lower extremities b/l, edema History of Wound: David is a 48 year old male that presents to the wound center for evaluation and treatment of nonhelaing ulcers of his lower legs that have been present for approximately 4 weeks. He states that his legs became swollen and then developed blisters which itched and broke open leaving sores. He has seen his PCP and they started him on Keflex 500 mg QID and he has been taking this for 4 weeks with minimal improvement. He has also been applying antibiotic ointment. He was also started on lasix which has helped his swelling somewhat. 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 He thinks his last A1C was in August and was 8.0%. He denies fever or chills or pain. Admits to drainage from the wounds that is clear. Progress of Wound: Kian is here for follow up of venous ulcers. His ulcers have gotten smaller and he is tolerating double layer tubigrip compression. He underwent vascular testing which showed normal arterial circulation but incompetence of veins in his lower extremities bilaterally right > left. He saw Dr. Steinberg for evaluation for possible venous ablation but he did not recommend any treatment at this time. He did not tolerate double layer tubigrips due to discomfort at the knee area from constriction but has been trying to be compliant. He denies fever or chills. - Physical Exam Vital Signs Temp Pulse Resp BP 97.6 F L 80 18 143/74 H 11/25/18 15:36 11/25/18 15:36 11/25/18 15:36 11/25/18 15:36 General: Alert, Oriented x3, Cooperative, No apparent distress HEENT: Atraumatic, Normocephalic Oral: Moist Mucosa Abdomen: Obese Extremities: Edema Skin: Ulcer/ Wound Wound Measurements and Assessment WC - Nurse 1 - General Ulcer Measurement Start: 11/25/18 15:35 Freq: Status: Active Protocol: Activity Type Activity Date Activity User E-Sign Co-Sign Detail Recorded Client Recorded Date Recorded By Document 11/25/18 15:36 AN [id number] 11/25/18 15:56 AN 11/25/18 15:36 Wound Center Nurse 1 [Ulcer Assessment] #4 LEFT MEDIAL LE -Current Size (cm) - Length 0.1 -Current Size (cm) - Width 0.1 -Current Size (cm) - Depth 0.1 -Total Square Cm 0.01 #3 LEFT LATERAL LE -Current Size (cm) - Length 0.7 -Current Size (cm) - Width 1.7 -Current Size (cm) - Depth 0.1 -Total Square Cm 1.19 #1 RIGHT DELUNA CLUSTER -Current Size (cm) - Length 1.4 -Current Size (cm) - Width 1.6 -Current Size (cm) - Depth 0.1 -Total Square Cm 2.24 [Edema Assessment] -Right Calf (cm) 48 -Point of measurement (cm from the 26.2 medial instep) -Left Calf (cm) 46.2 -Left Ankle (cm) 26.2 WC - Nurse 2 - General Ulcer CM Notes Start: 11/25/18 15:35 Freq: Status: Active Protocol: Activity Type Activity Date Activity User E-Sign Co-Sign Detail Recorded Client Recorded Date Recorded By Document 11/25/18 16:02 [id number] 11/25/18 16:06 11/25/18 16:02 Wound Center Nurse 2 [Procedure/Treatment] #4 LEFT MEDIAL LE -Time 16:02 -Post Debridement Size (cm) - Length 0.1 -Post Debridement Size (cm) - Width 0.1 -Post Debridement Size (cm) - Depth 0.1 -Total Square Cm 0.01 -Wound/Ulcer Outcome Healed- Epithelialized #3 LEFT LATERAL LE -Time 16:02 -Correct Patient Yes -Correct Side, Site, Position Yes -Correct Procedure Yes -Procedure Performed Yes -Type of Procedure Debridement -Clinical Debridement Subcutaneous -Post Debridement Size (cm) - Length 0.9 -Post Debridement Size (cm) - Width 1.2 -Post Debridement Size (cm) - Depth 0.1 -Total Square Cm 1.08 -Wound/Ulcer Outcome Not Healed -Ulcer Cleansing Not Cleansed -Foul Odor after Cleansing No -Bioengineered Tissue No -Bleeding Controlled with NA -Offloading No -Treatment Response Procedure Tolerated Well #1 RIGHT DELUNA CLUSTER -Time 16:02 -Correct Patient Yes -Correct Side, Site, Position Yes -Correct Procedure Yes -Procedure Performed Yes -Type of Procedure Debridement -Clinical Debridement Subcutaneous -Post Debridement Size (cm) - Length 0.1 -Post Debridement Size (cm) - Width 0.1 -Post Debridement Size (cm) - Depth 0.1 -Total Square Cm 0.01 -Wound/Ulcer Outcome Not Healed -Ulcer Cleansing Not Cleansed -Foul Odor after Cleansing No -Bioengineered Tissue No -Bleeding Controlled with NA -Offloading No -Treatment Response Procedure Tolerated Well [See Physician Procedure note for Specifics] Pain Scale: 0-10 Numeric [Pain] -Is Patient Pain Free? Yes Psych/Mental Status: Normal Affect, Appropriate Debridement Note Post-Debridement Measurements/Treatment WC - Nurse 2 - General Ulcer CM Notes Start: 11/25/18 15:35 Freq: Status: Active Protocol: Activity Type Activity Date Activity User E-Sign Co-Sign Detail Recorded Client Recorded Date Recorded By Document 11/25/18 16:02 [id number] 11/25/18 16:06 11/25/18 16:02 Wound Center Nurse 2 #4 LEFT MEDIAL LE -Time 16:02 -Post Debridement Size (cm) - Length 0.1 -Post Debridement Size (cm) - Width 0.1 -Post Debridement Size (cm) - Depth 0.1 -Total Square Cm 0.01 -Wound/Ulcer Outcome Healed- Epithelialized #3 LEFT LATERAL LE -Time 16:02 -Correct Patient Yes -Correct Side, Site, Position Yes -Correct Procedure Yes -Procedure Performed Yes -Type of Procedure Debridement -Clinical Debridement Subcutaneous -Post Debridement Size (cm) - Length 0.9 -Post Debridement Size (cm) - Width 1.2 -Post Debridement Size (cm) - Depth 0.1 -Total Square Cm 1.08 -Wound/Ulcer Outcome Not Healed -Ulcer Cleansing Not Cleansed -Foul Odor after Cleansing No -Bioengineered Tissue No -Bleeding Controlled with NA -Offloading No -Treatment Response Procedure Tolerated Well #1 RIGHT DELUNA CLUSTER -Time 16:02 -Correct Patient Yes -Correct Side, Site, Position Yes -Correct Procedure Yes -Procedure Performed Yes -Type of Procedure Debridement -Clinical Debridement Subcutaneous -Post Debridement Size (cm) - Length 0.1 -Post Debridement Size (cm) - Width 0.1 -Post Debridement Size (cm) - Depth 0.1 -Total Square Cm 0.01 -Wound/Ulcer Outcome Not Healed -Ulcer Cleansing Not Cleansed -Foul Odor after Cleansing No -Bioengineered Tissue No -Bleeding Controlled with NA -Offloading No -Treatment Response Procedure Tolerated Well Pain Scale: 0-10 Numeric Is Patient Pain Free? Yes Wound debrided: left medial LE Laterality: Left No debridement was completed today - This is healed - Additional Wound Wound debrided: left lateral LE Type of Debridement: Excisional debridement Anesthesia Used: 4% Lidocaine Solution Depth: Down to and including healthy tissue, in the subcutaneous layer Percentage of wound debrided: 100 Instrument Used: 3mm curette Tissue Removed: yellow slough, devitalized tissue Severity: Fat Layer Exposed Amount of bleeding with debridement: Mild Bleeding Controlled with: Compression and gauze Patient tolerated procedure: Patient tolerated procedure well - Additional Wound Wound debrided: right deluna cluster Laterality: Right Type of Debridement: Excisional debridement Anesthesia Used: 4% Lidocaine Solution Depth: Down to and including healthy tissue, in the subcutaneous layer Percentage of wound debrided: 100 Instrument Used: 3mm curette Tissue Removed: yellow slough, devitalized tissue Severity: Fat Layer Exposed Amount of bleeding with debridement: Mild Bleeding Controlled with: Compression and gauze Patient tolerated procedure: Patient tolerated procedure well Assessment/Plan Assessment: nonhealing venous ulcers of b/l lower extremities. Edema b/l lower extremities. IDDM Plan: David's wounds were evaluated and debrided today. We will continue to use collagen hydrogel with adaptic to his wounds and will try to treat edema with double layer tubigrips. Vascular doesn't feel that he is a candidate for intervention at this time. Discussed importance of avoiding idle sitting and standing to treat his ulcers and encouraged to elevate his feet at or above the level of his heart as much as possible. Encouraged weight loss, tight glucose control as well. F/U in 1 week.
[2018-12-02 14:11] VITALS: BP 134/65; PULSE 70; RESP 18; TEMP 37.1; BMI 46.2
--- NOTE | 2018-12-02 15:07 | PCM.WC.PN ---
(1) Diabetes mellitus, insulin dependent (IDDM), uncontrolled Status: Chronic Current Visit: Yes Qualifiers: Glycemic state: with hyperglycemia Code(s): E10.65 - Type 1 diabetes mellitus with hyperglycemia (2) Venous insufficiency of both lower extremities Status: Chronic Current Visit: Yes Code(s): I87.2 - Venous insufficiency (chronic) (peripheral) (3) Edema of both legs Status: Chronic Current Visit: No Code(s): R60.0 - Localized edema (4) Venous ulcers of both lower extremities Status: Chronic Current Visit: Yes Code(s): I87.2 - Venous insufficiency (chronic) (peripheral); L97.919 - Non-pressure chronic ulcer of unspecified part of right lower leg with unspecified severity; L97.929 - Non-pressure chronic ulcer of unspecified part of left lower leg with unspecified severity (5) Chronic venous hypertension w/ulcer and inflammation involv both sides Status: Chronic Current Visit: Yes Code(s): I87.333 - Chronic venous hypertension (idiopathic) with ulcer and inflammation of bilateral lower extremity; L97.919 - Non-pressure chronic ulcer of unspecified part of right lower leg with unspecified severity; L97.929 - Non-pressure chronic ulcer of unspecified part of left lower leg with unspecified severity Type of Wound Date of Service: 12/02/18 Chief Complaint: nonhealing ulcers of lower extremities b/l, edema History of Wound: David is a 48 year old male that presents to the wound center for evaluation and treatment of nonhelaing ulcers of his lower legs that have been present for approximately 4 weeks. He states that his legs became swollen and then developed blisters which itched and broke open leaving sores. He has seen his PCP and they started him on Keflex 500 mg QID and he has been taking this for 4 weeks with minimal improvement. He has also been applying antibiotic ointment. He was also started on lasix which has helped his swelling somewhat. 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 He thinks his last A1C was in August and was 8.0%. He denies fever or chills or pain. Admits to drainage from the wounds that is clear. Progress of Wound: Kian is here for follow up of venous ulcers. His ulcers have improved and he is tolerating double layer tubigrip compression. His right leg is healed. he does not have any new ulcers. He underwent vascular testing which showed normal arterial circulation but incompetence of veins in his lower extremities bilaterally right > left. He saw Dr. Steinberg for evaluation for possible venous ablation but he did not recommend any treatment at this time. He did not tolerate double layer tubigrips due to discomfort at the knee area from constriction but has been trying to be compliant. He denies fever or chills. - Physical Exam Vital Signs Temp Pulse Resp BP 98.7 F 70 18 134/65 H 12/02/18 14:11 12/02/18 14:11 12/02/18 14:11 12/02/18 14:11 General: Alert, Oriented x3, Cooperative, No apparent distress HEENT: Atraumatic, Normocephalic Oral: Moist Mucosa Neck: Supple Abdomen: Obese Extremities: Edema Skin: Ulcer/ Wound Wound Measurements and Assessment WC - Nurse 1 - General Ulcer Measurement Start: 11/25/18 15:35 Freq: Status: Active Protocol: Activity Type Activity Date Activity User E-Sign Co-Sign Detail Recorded Client Recorded Date Recorded By Document 12/02/18 14:11 AN [id number] 12/02/18 14:18 AN 12/02/18 14:11 Wound Center Nurse 1 [Ulcer Assessment] #3 LEFT LATERAL LE -Current Size (cm) - Length 0.1 -Current Size (cm) - Width 0.1 -Current Size (cm) - Depth 0.1 -Total Square Cm 0.01 -Date of Last Picture (Recall this 12/02/18 field) -Photo Taken Yes -Epithelialization None Present -Tunneling No -Undermining/Tunneling No -Circular Undermining No -Exudate Amt None Present -Granulation Amt None Present (0 %) -Necrosis Amt Large (67-100%) -Necrotic Tissue Type Eschar #1 RIGHT DELUNA CLUSTER -Current Size (cm) - Length 0.1 -Current Size (cm) - Width 0.1 -Current Size (cm) - Depth 0.1 -Total Square Cm 0.01 -Date of Last Picture (Recall this 12/02/18 field) -Photo Taken Yes -Epithelialization None Present -Tunneling No -Undermining/Tunneling No -Circular Undermining No -Exudate Amt None Present -Granulation Amt None Present (0 %) -Necrosis Amt None Present (0 %) WC - Nurse 2 - General Ulcer CM Notes Start: 11/25/18 15:35 Freq: Status: Active Protocol: Activity Type Activity Date Activity User E-Sign Co-Sign Detail Recorded Client Recorded Date Recorded By Document 12/02/18 14:35 [id number] 12/02/18 14:38 12/02/18 14:35 Wound Center Nurse 2 [Procedure/Treatment] #3 LEFT LATERAL LE -Time 14:36 -Correct Patient Yes -Correct Side, Site, Position Yes -Correct Procedure Yes -Procedure Performed Yes -Type of Procedure Debridement -Clinical Debridement Subcutaneous -Post Debridement Size (cm) - Length 0.5 -Post Debridement Size (cm) - Width 0.7 -Post Debridement Size (cm) - Depth 0.1 -Total Square Cm 0.35 -Wound/Ulcer Outcome Not Healed -Ulcer Cleansing Not Cleansed -Foul Odor after Cleansing No -Bioengineered Tissue No -Bleeding Controlled with Pressure -Offloading No -Treatment Response Procedure Tolerated Well #1 RIGHT DELUNA CLUSTER -Time 14:38 -Post Debridement Size (cm) - Length 0 -Post Debridement Size (cm) - Width 0 -Post Debridement Size (cm) - Depth 0 -Total Square Cm 0 -Wound/Ulcer Outcome Healed- Epithelialized [See Physician Procedure note for Specifics] Pain Scale: 0-10 Numeric [Pain] -Is Patient Pain Free? Yes Psych/Mental Status: Normal Affect, Appropriate Debridement Note Post-Debridement Measurements/Treatment WC - Nurse 2 - General Ulcer CM Notes Start: 11/25/18 15:35 Freq: Status: Active Protocol: Activity Type Activity Date Activity User E-Sign Co-Sign Detail Recorded Client Recorded Date Recorded By Document 11/25/18 16:02 [id number] 11/25/18 16:06 CS Document 12/02/18 14:35 [id number] 12/02/18 14:38 CS 11/25/18 12/02/18 16:02 14:35 Wound Center Nurse 2 #4 LEFT MEDIAL LE -Time 16:02 -Post Debridement Size (cm) - Length 0.1 -Post Debridement Size (cm) - Width 0.1 -Post Debridement Size (cm) - Depth 0.1 -Total Square Cm 0.01 -Wound/Ulcer Outcome Healed- Epithelialized #3 LEFT LATERAL LE -Time 16:02 14:36 -Correct Patient Yes Yes -Correct Side, Site, Position Yes Yes -Correct Procedure Yes Yes -Procedure Performed Yes Yes -Type of Procedure Debridement Debridement -Clinical Debridement Subcutaneous Subcutaneous -Post Debridement Size (cm) - Length 0.9 0.5 -Post Debridement Size (cm) - Width 1.2 0.7 -Post Debridement Size (cm) - Depth 0.1 0.1 -Total Square Cm 1.08 0.35 -Wound/Ulcer Outcome Not Healed Not Healed -Ulcer Cleansing Not Cleansed Not Cleansed -Foul Odor after Cleansing No No -Bioengineered Tissue No No -Bleeding Controlled with NA Pressure -Offloading No No -Treatment Response Procedure Procedure Tolerated Well Tolerated Well #1 RIGHT DELUNA CLUSTER -Time 16:02 14:38 -Correct Patient Yes -Correct Side, Site, Position Yes -Correct Procedure Yes -Procedure Performed Yes -Type of Procedure Debridement -Clinical Debridement Subcutaneous -Post Debridement Size (cm) - Length 0.1 0 -Post Debridement Size (cm) - Width 0.1 0 -Post Debridement Size (cm) - Depth 0.1 0 -Total Square Cm 0.01 0 -Wound/Ulcer Outcome Not Healed Healed- Epithelialized -Ulcer Cleansing Not Cleansed -Foul Odor after Cleansing No -Bioengineered Tissue No -Bleeding Controlled with NA -Offloading No -Treatment Response Procedure Tolerated Well Pain Scale: 0-10 Numeric Is Patient Pain Free? Yes Yes Wound debrided: right deluna cluster Laterality: Right No debridement was completed today - ulcer is healed - Additional Wound Wound debrided: left lateral LE Laterality: Left Type of Debridement: Excisional debridement Anesthesia Used: 4% Lidocaine Solution Depth: Down to and including healthy tissue, in the subcutaneous layer Percentage of wound debrided: 100 Instrument Used: 3mm curette Tissue Removed: yellow slough, devitalized tissue Severity: Fat Layer Exposed Amount of bleeding with debridement: Mild Bleeding Controlled with: Pressure Patient tolerated procedure: Patient tolerated procedure well Assessment/Plan Active Problems Diabetes mellitus, insulin dependent (IDDM), uncontrolled (Chronic) Venous insufficiency of both lower extremities (Chronic) Venous ulcers of both lower extremities (Chronic) Chronic venous hypertension w/ulcer and inflammation involv both sides (Chronic) Assessment: nonhealing venous ulcers of b/l lower extremities. Edema b/l lower extremities. IDDM Plan: David's ulcers were evaluated and debrided today. We will continue to use collagen hydrogel with adaptic to his ulcer and will treat edema with double layer tubigrips. Vascular doesn't feel that he is a candidate for intervention at this time. Discussed importance of avoiding idle sitting and standing to treat his ulcers and encouraged to elevate his feet at or above the level of his heart as much as possible. Encouraged weight loss, tight glucose control as well. F/U in 1 week.
[2018-12-09 14:32] VITALS: BP 126/67; PULSE 68; RESP 18; TEMP 36.3; BMI 46.2
--- NOTE | 2018-12-09 17:41 | PCM.WC.PN ---
(1) Diabetes mellitus, insulin dependent (IDDM), uncontrolled Status: Chronic Current Visit: Yes Qualifiers: Glycemic state: with hyperglycemia Code(s): E10.65 - Type 1 diabetes mellitus with hyperglycemia (2) Venous insufficiency of both lower extremities Status: Chronic Current Visit: Yes Code(s): I87.2 - Venous insufficiency (chronic) (peripheral) (3) Edema of both legs Status: Chronic Current Visit: No Code(s): R60.0 - Localized edema (4) Venous ulcers of both lower extremities Status: Resolved Current Visit: Yes Code(s): I87.2 - Venous insufficiency (chronic) (peripheral); L97.919 - Non-pressure chronic ulcer of unspecified part of right lower leg with unspecified severity; L97.929 - Non-pressure chronic ulcer of unspecified part of left lower leg with unspecified severity (5) Chronic venous hypertension w/ulcer and inflammation involv both sides Status: Chronic Current Visit: Yes Code(s): I87.333 - Chronic venous hypertension (idiopathic) with ulcer and inflammation of bilateral lower extremity; L97.919 - Non-pressure chronic ulcer of unspecified part of right lower leg with unspecified severity; L97.929 - Non-pressure chronic ulcer of unspecified part of left lower leg with unspecified severity Type of Wound Date of Service: 12/09/18 Chief Complaint: nonhealing ulcers of lower extremities b/l, edema History of Wound: David is a 48 year old male that presents to the wound center for evaluation and treatment of nonhelaing ulcers of his lower legs that have been present for approximately 4 weeks. He states that his legs became swollen and then developed blisters which itched and broke open leaving sores. He has seen his PCP and they started him on Keflex 500 mg QID and he has been taking this for 4 weeks with minimal improvement. He has also been applying antibiotic ointment. He was also started on lasix which has helped his swelling somewhat. 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 He thinks his last A1C was in August and was 8.0%. He underwent vascular testing which showed normal arterial circulation but incompetence of veins in his lower extremities bilaterally right > left. He saw Dr. Steinberg for evaluation for possible venous ablation but he did not recommend any treatment at this time. Progress of Wound: Kian is here for follow up of venous ulcers. His ulcers have healed and he is tolerating double layer tubigrip compression. - Physical Exam Vital Signs Temp Pulse Resp BP 97.3 F L 68 18 126/67 H 12/09/18 14:32 12/09/18 14:32 12/09/18 14:32 12/09/18 14:32 General: Alert, Oriented x3, Cooperative, No apparent distress HEENT: Atraumatic, Normocephalic Oral: Moist Mucosa Abdomen: Obese Extremities: Edema Skin: Ulcer/ Wound Wound Measurements and Assessment WC - Nurse 1 - General Ulcer Measurement Start: 11/25/18 15:35 Freq: Status: Active Protocol: Activity Type Activity Date Activity User E-Sign Co-Sign Detail Recorded Client Recorded Date Recorded By Document 12/09/18 14:32 AN [id number] 12/09/18 14:38 AN 12/09/18 14:32 Wound Center Nurse 1 [Ulcer Assessment] #3 LEFT LATERAL LE -Current Size (cm) - Length 0.1 -Current Size (cm) - Width 0.1 -Current Size (cm) - Depth 0.1 -Total Square Cm 0.01 -Photo Taken No -Epithelialization None Present -Tunneling No -Undermining/Tunneling No -Exudate Amt None Present -Wound Margin Flat & Intact -Granulation Amt None Present (0 %) -Necrosis Amt Large (67-100%) [Edema Assessment] -Left Calf (cm) 44 -Left Ankle (cm) 26 WC - Nurse 2 - General Ulcer CM Notes Start: 11/25/18 15:35 Freq: Status: Active Protocol: Activity Type Activity Date Activity User E-Sign Co-Sign Detail Recorded Client Recorded Date Recorded By Document 12/09/18 15:06 [id number] 12/09/18 15:07 12/09/18 15:06 Wound Center Nurse 2 [Procedure/Treatment] #3 LEFT LATERAL LE -Time 15:06 -Correct Patient Yes -Correct Side, Site, Position Yes -Correct Procedure Yes -Procedure Performed Yes -Post Debridement Size (cm) - Length 0 -Post Debridement Size (cm) - Width 0 -Post Debridement Size (cm) - Depth 0 -Total Square Cm 0 -Wound/Ulcer Outcome Healed- Epithelialized [See Physician Procedure note for Specifics] Pain Scale: 0-10 Numeric [Pain] -Is Patient Pain Free? Yes Psych/Mental Status: Normal Affect, Appropriate Debridement Note Post-Debridement Measurements/Treatment WC - Nurse 2 - General Ulcer CM Notes Start: 11/25/18 15:35 Freq: Status: Active Protocol: Activity Type Activity Date Activity User E-Sign Co-Sign Detail Recorded Client Recorded Date Recorded By Document 11/25/18 16:02 [id number] 11/25/18 16:06 CS Document 12/02/18 14:35 [id number] 12/02/18 14:38 Document 12/09/18 15:06 [id number] 12/09/18 15:07 11/25/18 12/02/18 12/09/18 16:02 14:35 15:06 Wound Center Nurse 2 #4 LEFT MEDIAL LE -Time 16:02 -Post Debridement Size (cm) - Length 0.1 -Post Debridement Size (cm) - Width 0.1 -Post Debridement Size (cm) - Depth 0.1 -Total Square Cm 0.01 -Wound/Ulcer Outcome Healed- Epithelialized #3 LEFT LATERAL LE -Time 16:02 14:36 15:06 -Correct Patient Yes Yes Yes -Correct Side, Site, Position Yes Yes Yes -Correct Procedure Yes Yes Yes -Procedure Performed Yes Yes Yes -Type of Procedure Debridement Debridement -Clinical Debridement Subcutaneous Subcutaneous -Post Debridement Size (cm) - Length 0.9 0.5 0 -Post Debridement Size (cm) - Width 1.2 0.7 0 -Post Debridement Size (cm) - Depth 0.1 0.1 0 -Total Square Cm 1.08 0.35 0 -Wound/Ulcer Outcome Not Healed Not Healed Healed- Epithelialized -Ulcer Cleansing Not Cleansed Not Cleansed -Foul Odor after Cleansing No No -Bioengineered Tissue No No -Bleeding Controlled with NA Pressure -Offloading No No -Treatment Response Procedure Procedure Tolerated Well Tolerated Well #1 RIGHT SHARP CLUSTER -Time 16:02 14:38 -Correct Patient Yes -Correct Side, Site, Position Yes -Correct Procedure Yes -Procedure Performed Yes -Type of Procedure Debridement -Clinical Debridement Subcutaneous -Post Debridement Size (cm) - Length 0.1 0 -Post Debridement Size (cm) - Width 0.1 0 -Post Debridement Size (cm) - Depth 0.1 0 -Total Square Cm 0.01 0 -Wound/Ulcer Outcome Not Healed Healed- Epithelialized -Ulcer Cleansing Not Cleansed -Foul Odor after Cleansing No -Bioengineered Tissue No -Bleeding Controlled with NA -Offloading No -Treatment Response Procedure Tolerated Well Pain Scale: 0-10 Numeric Is Patient Pain Free? Yes Yes Yes Wound debrided: left lateral LE Laterality: Left No debridement was completed today - due to the ulcer being healed Assessment/Plan Active Problems Diabetes mellitus, insulin dependent (IDDM), uncontrolled (Chronic) Venous insufficiency of both lower extremities (Chronic) Chronic venous hypertension w/ulcer and inflammation involv both sides (Chronic) Assessment: nonhealing venous ulcers of b/l lower extremities. Edema b/l lower extremities. IDDM Plan: David's ulcers are healed. He will continue to wear tubigrips. Circaids have been ordered and he will return for a nurse visit if his insurance approves them. Vascular doesn't feel that he is a candidate for intervention at this time. Discussed importance of avoiding idle sitting and standing to treat his ulcers and encouraged to elevate his feet at or above the level of his heart as much as possible. Encouraged weight loss, tight glucose control as well. He is discharged and will return as needed.
--- NOTE | 2018-12-09 17:45 | PN.PCM_ITS ---
(1) Diabetes mellitus, insulin dependent (IDDM), uncontrolled Status: Chronic Current Visit: Yes Qualifiers: Glycemic state: with hyperglycemia Code(s): E10.65 - Type 1 diabetes mellitus with hyperglycemia (2) Venous insufficiency of both lower extremities Status: Chronic Current Visit: Yes Code(s): I87.2 - Venous insufficiency (chronic) (peripheral) (3) Edema of both legs Status: Chronic Current Visit: No Code(s): R60.0 - Localized edema (4) Venous ulcers of both lower extremities Status: Resolved Current Visit: Yes Code(s): I87.2 - Venous insufficiency (chronic) (peripheral); L97.919 - Non-pressure chronic ulcer of unspecified part of right lower leg with unspecified severity; L97.929 - Non-pressure chronic ulcer of unspecified part of left lower leg with unspecified severity (5) Chronic venous hypertension w/ulcer and inflammation involv both sides Status: Chronic Current Visit: Yes Code(s): I87.333 - Chronic venous hypertension (idiopathic) with ulcer and inflammation of bilateral lower extremity; L97.919 - Non-pressure chronic ulcer of unspecified part of right lower leg with unspecified severity; L97.929 - Non-pressure chronic ulcer of unspecified part of left lower leg with unspecified severity Type of Wound Date of Service: 12/09/18 Chief Complaint: nonhealing ulcers of lower extremities b/l, edema History of Wound: David is a 48 year old male that presents to the wound center for evaluation and treatment of nonhelaing ulcers of his lower legs that have been present for approximately 4 weeks. He states that his legs became swollen and then developed blisters which itched and broke open leaving sores. He has seen his PCP and they started him on Keflex 500 mg QID and he has been taking this for 4 weeks with minimal improvement. He has also been applying antibiotic ointment. He was also started on lasix which has helped his swelling somewhat. He works at the [employer] and he is on his feet all the time there. He thinks his last A1C was in August and was 8.0%. He underwent vascular testing which showed normal arterial circulation but incompetence of veins in his lower extremities bilaterally right > left. He saw Dr. Steinberg for evaluation for possible venous ablation but he did not recommend any treatment at this time. Progress of Wound: Kian is here for follow up of venous ulcers. His ulcers have healed and he is tolerating double layer tubigrip compression. - Physical Exam Vital Signs Temp Pulse Resp BP 97.3 F L 68 18 126/67 H 12/09/18 14:32 12/09/18 14:32 12/09/18 14:32 12/09/18 14:32 General: Alert, Oriented x3, Cooperative, No apparent distress HEENT: Atraumatic, Normocephalic Oral: Moist Mucosa Abdomen: Obese Extremities: Edema Skin: Ulcer/ Wound Wound Measurements and Assessment WC - Nurse 1 - General Ulcer Measurement Start: 11/25/18 15:35 Freq: Status: Active Protocol: Activity Type Activity Date Activity User E-Sign Co-Sign Detail Recorded Client Recorded Date Recorded By Document 12/09/18 14:32 AN [id number] 12/09/18 14:38 AN 12/09/18 14:32 Wound Center Nurse 1 [Ulcer Assessment] #3 LEFT LATERAL LE -Current Size (cm) - Length 0.1 -Current Size (cm) - Width 0.1 -Current Size (cm) - Depth 0.1 -Total Square Cm 0.01 -Photo Taken No -Epithelialization None Present -Tunneling No -Undermining/Tunneling No -Exudate Amt None Present -Wound Margin Flat & Intact -Granulation Amt None Present (0 %) -Necrosis Amt Large (67-100%) [Edema Assessment] -Left Calf (cm) 44 -Left Ankle (cm) 26 WC - Nurse 2 - General Ulcer CM Notes Start: 11/25/18 15:35 Freq: Status: Active Protocol: Activity Type Activity Date Activity User E-Sign Co-Sign Detail Recorded Client Recorded Date Recorded By Document 12/09/18 15:06 [id number] 12/09/18 15:07 12/09/18 15:06 Wound Center Nurse 2 [Procedure/Treatment] #3 LEFT LATERAL LE -Time 15:06 -Correct Patient Yes -Correct Side, Site, Position Yes -Correct Procedure Yes -Procedure Performed Yes -Post Debridement Size (cm) - Length 0 -Post Debridement Size (cm) - Width 0 -Post Debridement Size (cm) - Depth 0 -Total Square Cm 0 -Wound/Ulcer Outcome Healed- Epithelialized [See Physician Procedure note for Specifics] Pain Scale: 0-10 Numeric [Pain] -Is Patient Pain Free? Yes Psych/Mental Status: Normal Affect, Appropriate Debridement Note Post-Debridement Measurements/Treatment WC - Nurse 2 - General Ulcer CM Notes Start: 11/25/18 15:35 Freq: Status: Active Protocol: Activity Type Activity Date Activity User E-Sign Co-Sign Detail Recorded Client Recorded Date Recorded By Document 11/25/18 16:02 [id number] 11/25/18 16:06 CS Document 12/02/18 14:35 [email or web address] 12/02/18 14:38 Document 12/09/18 15:06 [email or web address] 12/09/18 15:07 11/25/18 12/02/18 12/09/18 16:02 14:35 15:06 Wound Center Nurse 2 #4 LEFT MEDIAL LE -Time 16:02 -Post Debridement Size (cm) - Length 0.1 -Post Debridement Size (cm) - Width 0.1 -Post Debridement Size (cm) - Depth 0.1 -Total Square Cm 0.01 -Wound/Ulcer Outcome Healed- Epithelialized #3 LEFT LATERAL LE -Time 16:02 14:36 15:06 -Correct Patient Yes Yes Yes -Correct Side, Site, Position Yes Yes Yes -Correct Procedure Yes Yes Yes -Procedure Performed Yes Yes Yes -Type of Procedure Debridement Debridement -Clinical Debridement Subcutaneous Subcutaneous -Post Debridement Size (cm) - Length 0.9 0.5 0 -Post Debridement Size (cm) - Width 1.2 0.7 0 -Post Debridement Size (cm) - Depth 0.1 0.1 0 -Total Square Cm 1.08 0.35 0 -Wound/Ulcer Outcome Not Healed Not Healed Healed- Epithelialized -Ulcer Cleansing Not Cleansed Not Cleansed -Foul Odor after Cleansing No No -Bioengineered Tissue No No -Bleeding Controlled with NA Pressure -Offloading No No -Treatment Response Procedure Procedure Tolerated Well Tolerated Well #1 RIGHT SHARP CLUSTER -Time 16:02 14:38 -Correct Patient Yes -Correct Side, Site, Position Yes -Correct Procedure Yes -Procedure Performed Yes -Type of Procedure Debridement -Clinical Debridement Subcutaneous -Post Debridement Size (cm) - Length 0.1 0 -Post Debridement Size (cm) - Width 0.1 0 -Post Debridement Size (cm) - Depth 0.1 0 -Total Square Cm 0.01 0 -Wound/Ulcer Outcome Not Healed Healed- Epithelialized -Ulcer Cleansing Not Cleansed -Foul Odor after Cleansing No -Bioengineered Tissue No -Bleeding Controlled with NA -Offloading No -Treatment Response Procedure Tolerated Well Pain Scale: 0-10 Numeric Is Patient Pain Free? Yes Yes Yes Wound debrided: left lateral LE Laterality: Left No debridement was completed today - due to the ulcer being healed Assessment/Plan Active Problems Diabetes mellitus, insulin dependent (IDDM), uncontrolled (Chronic) Venous insufficiency of both lower extremities (Chronic) Chronic venous hypertension w/ulcer and inflammation involv both sides (Chronic) Assessment: nonhealing venous ulcers of b/l lower extremities. Edema b/l lower extremities. IDDM Plan: David's ulcers are healed. He will continue to wear tubigrips. Circaids have been ordered and he will return for a nurse visit if his insurance approves them. Vascular doesn't feel that he is a candidate for intervention at this time. Discussed importance of avoiding idle sitting and standing to treat his ulcers and encouraged to elevate his feet at or above the level of his heart as much as possible. Encouraged weight loss, tight glucose control as well. He is discharged and will return as needed.
[2018-12-16 15:01] VITALS: BP 137/77; PULSE 76; RESP 16; TEMP 35.8; BMI 46.2
--- NOTE | 2018-12-16 16:25 | PCM.WC.PN ---
(1) Diabetes mellitus, insulin dependent (IDDM), uncontrolled Status: Chronic Current Visit: Yes Qualifiers: Glycemic state: with hyperglycemia Code(s): E10.65 - Type 1 diabetes mellitus with hyperglycemia (2) Venous insufficiency of both lower extremities Status: Chronic Current Visit: Yes Code(s): I87.2 - Venous insufficiency (chronic) (peripheral) (3) Edema of both legs Status: Chronic Current Visit: No Code(s): R60.0 - Localized edema (4) Venous ulcers of both lower extremities Status: Resolved Current Visit: Yes Code(s): I87.2 - Venous insufficiency (chronic) (peripheral); L97.919 - Non-pressure chronic ulcer of unspecified part of right lower leg with unspecified severity; L97.929 - Non-pressure chronic ulcer of unspecified part of left lower leg with unspecified severity (5) Chronic venous hypertension w/ulcer and inflammation involv both sides Status: Chronic Current Visit: Yes Code(s): I87.333 - Chronic venous hypertension (idiopathic) with ulcer and inflammation of bilateral lower extremity; L97.919 - Non-pressure chronic ulcer of unspecified part of right lower leg with unspecified severity; L97.929 - Non-pressure chronic ulcer of unspecified part of left lower leg with unspecified severity Type of Wound Date of Service: 12/16/18 Chief Complaint: nonhealing ulcers of lower extremities b/l, edema History of Wound: David is a 48 year old male that presents to the wound center for evaluation and treatment of nonhelaing ulcers of his lower legs that have been present for approximately 4 weeks. He states that his legs became swollen and then developed blisters which itched and broke open leaving sores. He has seen his PCP and they started him on Keflex 500 mg QID and he has been taking this for 4 weeks with minimal improvement. He has also been applying antibiotic ointment. He was also started on lasix which has helped his swelling somewhat. He works at the [employer] and he is on his feet all the time there. He thinks his last A1C was in August and was 8.0%. He underwent vascular testing which showed normal arterial circulation but incompetence of veins in his lower extremities bilaterally right > left. He saw Dr. Steinberg for evaluation for possible venous ablation but he did not recommend any treatment at this time. Progress of Wound: Kian is here for follow up of venous ulcers. He was here for a nurse visit but this week he developed several venous ulcers which opened and drained. He was tolerating tubigrip compression and has been elevating his legs except for during work hours where he does not have the ability to rest or elevate. He did receive Circaids and brought them with him today for instructions on how to place them. He has significant erythema of his right lower leg surrounding his ulcers. - Physical Exam Vital Signs Temp Pulse Resp BP 96.4 F L 76 16 137/77 H 12/16/18 15:01 12/16/18 15:01 12/16/18 15:01 12/16/18 15:01 General: Alert, Oriented x3, Cooperative, No apparent distress HEENT: Atraumatic, Normocephalic Oral: Moist Mucosa Abdomen: Obese Extremities: Edema Skin: Ulcer/ Wound Wound Measurements and Assessment WC - Nurse 1 - General Ulcer Measurement Start: 11/25/18 15:35 Freq: Status: Active Protocol: Activity Type Activity Date Activity User E-Sign Co-Sign Detail Recorded Client Recorded Date Recorded By Document 12/16/18 15:01 [facility] [id number] 12/16/18 15:08 [facility] 12/16/18 15:01 Wound Center Nurse 1 [Ulcer Assessment] #7- RT INFERIOR SHARP CLUSTER -Combined with other wound No -Current Size (cm) - Length 1.7 -Current Size (cm) - Width 1.5 -Current Size (cm) - Depth 0.1 -Total Square Cm 2.55 -Date of Last Picture (Recall this 12/16/18 field) -Photo Taken Yes -Epithelialization None Present -Tunneling No -Undermining/Tunneling No -Circular Undermining No -Exudate Amt Small -Exudate Type Serosanguineous -Wound Margin Flat & Intact -Granulation Amt Large (67-100%) -Granulation Quality Red -Slough/Fibrin Yes -Necrosis Amt Small (1-33%) -Necrotic Tissue Type Adherent Slough -Structure Exposed None/Limited to Skin Breakdown -Texture (Milly-wound Skin Appearance) Scarring -Moisture (Milly-wound Skin Appearance Dry/Scaly ) -Color (Milly-wound Skin Appearance) Erythema -Temperature (Milly-wound Skin No Abnormality Appearance) (Pt Warm) -Tenderness on Palpation (Milly-wound No Skin Appearance) -Ulcer Cleansing Rinsed/ Irrigated with Saline -Foul Odor after Cleansing No -Anesthetic Used 5% Lidocaine Gel #6- RT SUPERIOR SHARP CLUSTER -Combined with other wound No -Current Size (cm) - Length 1.8 -Current Size (cm) - Width 2.3 -Current Size (cm) - Depth 0.1 -Total Square Cm 4.14 -Date of Last Picture (Recall this 12/16/18 field) -Photo Taken Yes -Epithelialization None Present -Tunneling No -Undermining/Tunneling No -Circular Undermining No -Exudate Amt Small -Exudate Type Serosanguineous -Wound Margin Flat & Intact -Granulation Amt Large (67-100%) -Granulation Quality Red -Slough/Fibrin Yes -Necrosis Amt Small (1-33%) -Necrotic Tissue Type Adherent Slough -Structure Exposed None/Limited to Skin Breakdown -Texture (Milly-wound Skin Appearance) Scarring -Moisture (Milly-wound Skin Appearance Dry/Scaly ) -Color (Milly-wound Skin Appearance) Erythema -Temperature (Milly-wound Skin No Abnormality Appearance) (Pt Warm) -Tenderness on Palpation (Milly-wound No Skin Appearance) -Ulcer Cleansing Rinsed/ Irrigated with Saline -Foul Odor after Cleansing No -Anesthetic Used 4% Lidocaine Solution 5- LT LAT LEG CLUSTER -Combined with other wound No -Current Size (cm) - Length 10.5 -Current Size (cm) - Width 3.0 -Current Size (cm) - Depth 0.1 -Total Square Cm 31.50 -Date of Last Picture (Recall this 12/16/18 field) -Photo Taken Yes -Epithelialization None Present -Tunneling No -Undermining/Tunneling No -Circular Undermining No -Exudate Amt Small -Exudate Type Serosanguineous -Wound Margin Flat & Intact -Granulation Amt Large (67-100%) -Granulation Quality Red -Slough/Fibrin No -Necrosis Amt Small (1-33%) -Necrotic Tissue Type Adherent Slough -Structure Exposed None/Limited to Skin Breakdown -Texture (Milly-wound Skin Appearance) Assessed Scarring -Moisture (Milly-wound Skin Appearance Dry/Scaly ) -Color (Milly-wound Skin Appearance) Erythema -Temperature (Milly-wound Skin No Abnormality Appearance) (Pt Warm) -Tenderness on Palpation (Milly-wound No Skin Appearance) -Ulcer Cleansing Rinsed/ Irrigated with Saline -Foul Odor after Cleansing No -Anesthetic Used 4% Lidocaine Solution [Edema Assessment] -Lower Limb Edema Present Yes -Right Calf (cm) 48.5 -Right Ankle (cm) 24.4 -Left Calf (cm) 47.2 -Left Ankle (cm) 25 WC - Nurse 2 - General Ulcer CM Notes Start: 11/25/18 15:35 Freq: Status: Active Protocol: Activity Type Activity Date Activity User E-Sign Co-Sign Detail Recorded Client Recorded Date Recorded By Document 12/16/18 15:38 [id number] 12/16/18 15:43 CS 12/16/18 15:38 Wound Center Nurse 2 [Procedure/Treatment] #7- RT INFERIOR SHARP CLUSTER -Time 15:40 -Correct Patient Yes -Correct Side, Site, Position Yes -Correct Procedure Yes -Procedure Performed Yes -Type of Procedure Debridement -Clinical Debridement Subcutaneous -Post Debridement Size (cm) - Length 1.5 -Post Debridement Size (cm) - Width 1.5 -Post Debridement Size (cm) - Depth 0.1 -Total Square Cm 2.25 -Wound/Ulcer Outcome Not Healed -Ulcer Cleansing Not Cleansed -Foul Odor after Cleansing No -Bleeding Controlled with NA -Offloading No -Treatment Response Procedure Tolerated Well #6- RT SUPERIOR SHARP CLUSTER -Time 15:40 -Correct Patient Yes -Correct Side, Site, Position Yes -Correct Procedure Yes -Procedure Performed Yes -Type of Procedure Debridement -Clinical Debridement Subcutaneous -Post Debridement Size (cm) - Length 2.8 -Post Debridement Size (cm) - Width 4.0 -Post Debridement Size (cm) - Depth 0.1 -Total Square Cm 11.20 -Wound/Ulcer Outcome Not Healed -Ulcer Cleansing Not Cleansed -Foul Odor after Cleansing No -Bioengineered Tissue No -Bleeding Controlled with NA -Offloading No -Treatment Response Procedure Tolerated Well 5- LT LAT LEG CLUSTER -Time 15:40 -Correct Patient Yes -Correct Side, Site, Position Yes -Correct Procedure Yes -Procedure Performed Yes -Type of Procedure Debridement -Clinical Debridement Subcutaneous -Post Debridement Size (cm) - Length 10.3 -Post Debridement Size (cm) - Width 3 -Post Debridement Size (cm) - Depth 0.1 -Total Square Cm 30.9 -Wound/Ulcer Outcome Not Healed -Ulcer Cleansing Not Cleansed -Foul Odor after Cleansing No -Bioengineered Tissue No -Bleeding Controlled with NA -Offloading No -Treatment Response Procedure Tolerated Well [See Physician Procedure note for Specifics] Pain Scale: 0-10 Numeric [Pain] -Is Patient Pain Free? Yes Psych/Mental Status: Normal Affect, Appropriate Debridement Note Post-Debridement Measurements/Treatment WC - Nurse 2 - General Ulcer CM Notes Start: 11/25/18 15:35 Freq: Status: Active Protocol: Activity Type Activity Date Activity User E-Sign Co-Sign Detail Recorded Client Recorded Date Recorded By Document 11/25/18 16:02 CS [id number] 11/25/18 16:06 CS Document 12/02/18 14:35 CS [id number] 12/02/18 14:38 CS Document 12/09/18 15:06 CS [id number] 12/09/18 15:07 CS Document 12/16/18 15:38 CS [id number] 12/16/18 15:43 CS 11/25/18 12/02/18 12/09/18 16:02 14:35 15:06 Wound Center Nurse 2 #7- RT INFERIOR SHARP CLUSTER -Time -Correct Patient -Correct Side, Site, Position -Correct Procedure -Procedure Performed -Type of Procedure -Clinical Debridement -Post Debridement Size (cm) - Length -Post Debridement Size (cm) - Width -Post Debridement Size (cm) - Depth -Total Square Cm -Wound/Ulcer Outcome -Ulcer Cleansing -Foul Odor after Cleansing -Bleeding Controlled with -Offloading -Treatment Response #6- RT SUPERIOR SHARP CLUSTER -Time -Correct Patient -Correct Side, Site, Position -Correct Procedure -Procedure Performed -Type of Procedure -Clinical Debridement -Post Debridement Size (cm) - Length -Post Debridement Size (cm) - Width -Post Debridement Size (cm) - Depth -Total Square Cm -Wound/Ulcer Outcome -Ulcer Cleansing -Foul Odor after Cleansing -Bioengineered Tissue -Bleeding Controlled with -Offloading -Treatment Response 5- LT LAT LEG CLUSTER -Time -Correct Patient -Correct Side, Site, Position -Correct Procedure -Procedure Performed -Type of Procedure -Clinical Debridement -Post Debridement Size (cm) - Length -Post Debridement Size (cm) - Width -Post Debridement Size (cm) - Depth -Total Square Cm -Wound/Ulcer Outcome -Ulcer Cleansing -Foul Odor after Cleansing -Bioengineered Tissue -Bleeding Controlled with -Offloading -Treatment Response #4 LEFT MEDIAL LE -Time 16:02 -Post Debridement Size (cm) - Length 0.1 -Post Debridement Size (cm) - Width 0.1 -Post Debridement Size (cm) - Depth 0.1 -Total Square Cm 0.01 -Wound/Ulcer Outcome Healed- Epithelialized #3 LEFT LATERAL LE -Time 16:02 14:36 15:06 -Correct Patient Yes Yes Yes -Correct Side, Site, Position Yes Yes Yes -Correct Procedure Yes Yes Yes -Procedure Performed Yes Yes Yes -Type of Procedure Debridement Debridement -Clinical Debridement Subcutaneous Subcutaneous -Post Debridement Size (cm) - Length 0.9 0.5 0 -Post Debridement Size (cm) - Width 1.2 0.7 0 -Post Debridement Size (cm) - Depth 0.1 0.1 0 -Total Square Cm 1.08 0.35 0 -Wound/Ulcer Outcome Not Healed Not Healed Healed- Epithelialized -Ulcer Cleansing Not Cleansed Not Cleansed -Foul Odor after Cleansing No No -Bioengineered Tissue No No -Bleeding Controlled with NA Pressure -Offloading No No -Treatment Response Procedure Procedure Tolerated Well Tolerated Well #1 RIGHT SHARP CLUSTER -Time 16:02 14:38 -Correct Patient Yes -Correct Side, Site, Position Yes -Correct Procedure Yes -Procedure Performed Yes -Type of Procedure Debridement -Clinical Debridement Subcutaneous -Post Debridement Size (cm) - Length 0.1 0 -Post Debridement Size (cm) - Width 0.1 0 -Post Debridement Size (cm) - Depth 0.1 0 -Total Square Cm 0.01 0 -Wound/Ulcer Outcome Not Healed Healed- Epithelialized -Ulcer Cleansing Not Cleansed -Foul Odor after Cleansing No -Bioengineered Tissue No -Bleeding Controlled with NA -Offloading No -Treatment Response Procedure Tolerated Well Pain Scale: 0-10 Numeric Is Patient Pain Free? Yes Yes Yes 12/16/18 15:38 Wound Center Nurse 2 #7- RT INFERIOR SHARP CLUSTER -Time 15:40 -Correct Patient Yes -Correct Side, Site, Position Yes -Correct Procedure Yes -Procedure Performed Yes -Type of Procedure Debridement -Clinical Debridement Subcutaneous -Post Debridement Size (cm) - Length 1.5 -Post Debridement Size (cm) - Width 1.5 -Post Debridement Size (cm) - Depth 0.1 -Total Square Cm 2.25 -Wound/Ulcer Outcome Not Healed -Ulcer Cleansing Not Cleansed -Foul Odor after Cleansing No -Bleeding Controlled with NA -Offloading No -Treatment Response Procedure Tolerated Well #6- RT SUPERIOR SHARP CLUSTER -Time 15:40 -Correct Patient Yes -Correct Side, Site, Position Yes -Correct Procedure Yes -Procedure Performed Yes -Type of Procedure Debridement -Clinical Debridement Subcutaneous -Post Debridement Size (cm) - Length 2.8 -Post Debridement Size (cm) - Width 4.0 -Post Debridement Size (cm) - Depth 0.1 -Total Square Cm 11.20 -Wound/Ulcer Outcome Not Healed -Ulcer Cleansing Not Cleansed -Foul Odor after Cleansing No -Bioengineered Tissue No -Bleeding Controlled with NA -Offloading No -Treatment Response Procedure Tolerated Well 5- LT LAT LEG CLUSTER -Time 15:40 -Correct Patient Yes -Correct Side, Site, Position Yes -Correct Procedure Yes -Procedure Performed Yes -Type of Procedure Debridement -Clinical Debridement Subcutaneous -Post Debridement Size (cm) - Length 10.3 -Post Debridement Size (cm) - Width 3 -Post Debridement Size (cm) - Depth 0.1 -Total Square Cm 30.9 -Wound/Ulcer Outcome Not Healed -Ulcer Cleansing Not Cleansed -Foul Odor after Cleansing No -Bioengineered Tissue No -Bleeding Controlled with NA -Offloading No -Treatment Response Procedure Tolerated Well #4 LEFT MEDIAL LE -Time -Post Debridement Size (cm) - Length -Post Debridement Size (cm) - Width -Post Debridement Size (cm) - Depth -Total Square Cm -Wound/Ulcer Outcome #3 LEFT LATERAL LE -Time -Correct Patient -Correct Side, Site, Position -Correct Procedure -Procedure Performed -Type of Procedure -Clinical Debridement -Post Debridement Size (cm) - Length -Post Debridement Size (cm) - Width -Post Debridement Size (cm) - Depth -Total Square Cm -Wound/Ulcer Outcome -Ulcer Cleansing -Foul Odor after Cleansing -Bioengineered Tissue -Bleeding Controlled with -Offloading -Treatment Response #1 RIGHT SHARP CLUSTER -Time -Correct Patient -Correct Side, Site, Position -Correct Procedure -Procedure Performed -Type of Procedure -Clinical Debridement -Post Debridement Size (cm) - Length -Post Debridement Size (cm) - Width -Post Debridement Size (cm) - Depth -Total Square Cm -Wound/Ulcer Outcome -Ulcer Cleansing -Foul Odor after Cleansing -Bioengineered Tissue -Bleeding Controlled with -Offloading -Treatment Response Pain Scale: 0-10 Numeric Is Patient Pain Free? Yes Wound debrided: right inferior leg cluster Laterality: Right Type of Debridement: Excisional debridement Anesthesia Used: 4% Lidocaine Solution Depth: Down to and including healthy tissue, in the subcutaneous layer Percentage of wound debrided: 100 Instrument Used: 5mm curette Tissue Removed: yellow slough, devitalized tissue Severity: Fat Layer Exposed Amount of bleeding with debridement: Mild Bleeding Controlled with: Compression and gauze Patient tolerated procedure well - Additional Wound Wound debrided: right superior leg cluster Laterality: Right Type of Debridement: Excisional debridement Anesthesia Used: 4% Lidocaine Solution Depth: Down to and including healthy tissue, in the subcutaneous layer Percentage of wound debrided: 100 Instrument Used: 5mm curette Tissue Removed: yellow slough, devitalized tissue Severity: Fat Layer Exposed Amount of bleeding with debridement: Mild Bleeding Controlled with: Compression and gauze Patient tolerated procedure: Patient tolerated procedure well - Additional Wound Wound debrided: left lateral leg cluster Laterality: Left Type of Debridement: Excisional debridement Anesthesia Used: 4% Lidocaine Solution Depth: Down to and including healthy tissue, in the subcutaneous layer Percentage of wound debrided: 100 Instrument Used: 5mm curette Tissue Removed: yellow slough, devitalized tissue Severity: Fat Layer Exposed Amount of bleeding with debridement: Mild Bleeding Controlled with: Compression and gauze Patient tolerated procedure: Patient tolerated procedure well Assessment/Plan Active Problems Diabetes mellitus, insulin dependent (IDDM), uncontrolled (Chronic) Venous insufficiency of both lower extremities (Chronic) Chronic venous hypertension w/ulcer and inflammation involv both sides (Chronic) Assessment: nonhealing venous ulcers of b/l lower extremities. Edema b/l lower extremities. IDDM Plan: David developed new ulcers this week likely related to him being on his feet at work. He will use Aquacel xtra and will use Circaids for compression. Doxycycline was prescribed to treat for cellulitis. Discussed decreased salt intake and weight loss as well as possibly having him do light duty which he states his job will not accomodate him. Vascular doesn't feel that he is a candidate for intervention at this time. Discussed importance of avoiding idle sitting and standing to treat his ulcers and encouraged to elevate his feet at or above the level of his heart as much as possible. Encouraged weight loss, tight glucose control as well. He will follow up in 1 week.
--- NOTE | 2018-12-16 16:30 | PN.PCM_ITS ---
(1) Diabetes mellitus, insulin dependent (IDDM), uncontrolled Status: Chronic Current Visit: Yes Qualifiers: Glycemic state: with hyperglycemia Code(s): E10.65 - Type 1 diabetes mellitus with hyperglycemia (2) Venous insufficiency of both lower extremities Status: Chronic Current Visit: Yes Code(s): I87.2 - Venous insufficiency (chronic) (peripheral) (3) Edema of both legs Status: Chronic Current Visit: No Code(s): R60.0 - Localized edema (4) Venous ulcers of both lower extremities Status: Resolved Current Visit: Yes Code(s): I87.2 - Venous insufficiency (chronic) (peripheral); L97.919 - Non-pressure chronic ulcer of unspecified part of right lower leg with unspecified severity; L97.929 - Non-pressure chronic ulcer of unspecified part of left lower leg with unspecified severity (5) Chronic venous hypertension w/ulcer and inflammation involv both sides Status: Chronic Current Visit: Yes Code(s): I87.333 - Chronic venous hypertension (idiopathic) with ulcer and inflammation of bilateral lower extremity; L97.919 - Non-pressure chronic ulcer of unspecified part of right lower leg with unspecified severity; L97.929 - Non-pressure chronic ulcer of unspecified part of left lower leg with unspecified severity Type of Wound Date of Service: 12/16/18 Chief Complaint: nonhealing ulcers of lower extremities b/l, edema History of Wound: David is a 48 year old male that presents to the wound center for evaluation and treatment of nonhelaing ulcers of his lower legs that have been present for approximately 4 weeks. He states that his legs became swollen and then developed blisters which itched and broke open leaving sores. He has seen his PCP and they started him on Keflex 500 mg QID and he has been taking this for 4 weeks with minimal improvement. He has also been applying antibiotic ointment. He was also started on lasix which has helped his swelling somewhat. He works at the [employer] tin [employer] and he is on his feet all the time there. He thinks his last A1C was in August and was 8.0%. He underwent vascular testing which showed normal arterial circulation but incompetence of veins in his lower extremities bilaterally right > left. He saw Dr. Steinberg for evaluation for possible venous ablation but he did not recommend any treatment at this time. Progress of Wound: Kian is here for follow up of venous ulcers. He was here for a nurse visit but this week he developed several venous ulcers which opened and drained. He was tolerating tubigrip compression and has been elevating his legs except for during work hours where he does not have the ability to rest or elevate. He did receive Circaids and brought them with him today for instructions on how to place them. He has significant erythema of his right lower leg surrounding his ulcers. - Physical Exam Vital Signs Temp Pulse Resp BP 96.4 F L 76 16 137/77 H 12/16/18 15:01 12/16/18 15:01 12/16/18 15:01 12/16/18 15:01 General: Alert, Oriented x3, Cooperative, No apparent distress HEENT: Atraumatic, Normocephalic Oral: Moist Mucosa Abdomen: Obese Extremities: Edema Skin: Ulcer/ Wound Wound Measurements and Assessment WC - Nurse 1 - General Ulcer Measurement Start: 11/25/18 15:35 Freq: Status: Active Protocol: Activity Type Activity Date Activity User E-Sign Co-Sign Detail Recorded Client Recorded Date Recorded By Document 12/16/18 15:01 [facility] [id number] 12/16/18 15:08 [facility] 12/16/18 15:01 Wound Center Nurse 1 [Ulcer Assessment] #7- RT INFERIOR SHARP CLUSTER -Combined with other wound No -Current Size (cm) - Length 1.7 -Current Size (cm) - Width 1.5 -Current Size (cm) - Depth 0.1 -Total Square Cm 2.55 -Date of Last Picture (Recall this 12/16/18 field) -Photo Taken Yes -Epithelialization None Present -Tunneling No -Undermining/Tunneling No -Circular Undermining No -Exudate Amt Small -Exudate Type Serosanguineous -Wound Margin Flat & Intact -Granulation Amt Large (67-100%) -Granulation Quality Red -Slough/Fibrin Yes -Necrosis Amt Small (1-33%) -Necrotic Tissue Type Adherent Slough -Structure Exposed None/Limited to Skin Breakdown -Texture (Milly-wound Skin Appearance) Scarring -Moisture (Milly-wound Skin Appearance Dry/Scaly ) -Color (Milly-wound Skin Appearance) Erythema -Temperature (Milly-wound Skin No Abnormality Appearance) (Pt Warm) -Tenderness on Palpation (Milly-wound No Skin Appearance) -Ulcer Cleansing Rinsed/ Irrigated with Saline -Foul Odor after Cleansing No -Anesthetic Used 5% Lidocaine Gel #6- RT SUPERIOR SHARP CLUSTER -Combined with other wound No -Current Size (cm) - Length 1.8 -Current Size (cm) - Width 2.3 -Current Size (cm) - Depth 0.1 -Total Square Cm 4.14 -Date of Last Picture (Recall this 12/16/18 field) -Photo Taken Yes -Epithelialization None Present -Tunneling No -Undermining/Tunneling No -Circular Undermining No -Exudate Amt Small -Exudate Type Serosanguineous -Wound Margin Flat & Intact -Granulation Amt Large (67-100%) -Granulation Quality Red -Slough/Fibrin Yes -Necrosis Amt Small (1-33%) -Necrotic Tissue Type Adherent Slough -Structure Exposed None/Limited to Skin Breakdown -Texture (Milly-wound Skin Appearance) Scarring -Moisture (Milly-wound Skin Appearance Dry/Scaly ) -Color (Milly-wound Skin Appearance) Erythema -Temperature (Milly-wound Skin No Abnormality Appearance) (Pt Warm) -Tenderness on Palpation (Milly-wound No Skin Appearance) -Ulcer Cleansing Rinsed/ Irrigated with Saline -Foul Odor after Cleansing No -Anesthetic Used 4% Lidocaine Solution 5- LT LAT LEG CLUSTER -Combined with other wound No -Current Size (cm) - Length 10.5 -Current Size (cm) - Width 3.0 -Current Size (cm) - Depth 0.1 -Total Square Cm 31.50 -Date of Last Picture (Recall this 12/16/18 field) -Photo Taken Yes -Epithelialization None Present -Tunneling No -Undermining/Tunneling No -Circular Undermining No -Exudate Amt Small -Exudate Type Serosanguineous -Wound Margin Flat & Intact -Granulation Amt Large (67-100%) -Granulation Quality Red -Slough/Fibrin No -Necrosis Amt Small (1-33%) -Necrotic Tissue Type Adherent Slough -Structure Exposed None/Limited to Skin Breakdown -Texture (Milly-wound Skin Appearance) Assessed Scarring -Moisture (Milly-wound Skin Appearance Dry/Scaly ) -Color (Milly-wound Skin Appearance) Erythema -Temperature (Milly-wound Skin No Abnormality Appearance) (Pt Warm) -Tenderness on Palpation (Milly-wound No Skin Appearance) -Ulcer Cleansing Rinsed/ Irrigated with Saline -Foul Odor after Cleansing No -Anesthetic Used 4% Lidocaine Solution [Edema Assessment] -Lower Limb Edema Present Yes -Right Calf (cm) 48.5 -Right Ankle (cm) 24.4 -Left Calf (cm) 47.2 -Left Ankle (cm) 25 WC - Nurse 2 - General Ulcer CM Notes Start: 11/25/18 15:35 Freq: Status: Active Protocol: Activity Type Activity Date Activity User E-Sign Co-Sign Detail Recorded Client Recorded Date Recorded By Document 12/16/18 15:38 [id number] 12/16/18 15:43 CS 12/16/18 15:38 Wound Center Nurse 2 [Procedure/Treatment] #7- RT INFERIOR SHARP CLUSTER -Time 15:40 -Correct Patient Yes -Correct Side, Site, Position Yes -Correct Procedure Yes -Procedure Performed Yes -Type of Procedure Debridement -Clinical Debridement Subcutaneous -Post Debridement Size (cm) - Length 1.5 -Post Debridement Size (cm) - Width 1.5 -Post Debridement Size (cm) - Depth 0.1 -Total Square Cm 2.25 -Wound/Ulcer Outcome Not Healed -Ulcer Cleansing Not Cleansed -Foul Odor after Cleansing No -Bleeding Controlled with NA -Offloading No -Treatment Response Procedure Tolerated Well #6- RT SUPERIOR SHARP CLUSTER -Time 15:40 -Correct Patient Yes -Correct Side, Site, Position Yes -Correct Procedure Yes -Procedure Performed Yes -Type of Procedure Debridement -Clinical Debridement Subcutaneous -Post Debridement Size (cm) - Length 2.8 -Post Debridement Size (cm) - Width 4.0 -Post Debridement Size (cm) - Depth 0.1 -Total Square Cm 11.20 -Wound/Ulcer Outcome Not Healed -Ulcer Cleansing Not Cleansed -Foul Odor after Cleansing No -Bioengineered Tissue No -Bleeding Controlled with NA -Offloading No -Treatment Response Procedure Tolerated Well 5- LT LAT LEG CLUSTER -Time 15:40 -Correct Patient Yes -Correct Side, Site, Position Yes -Correct Procedure Yes -Procedure Performed Yes -Type of Procedure Debridement -Clinical Debridement Subcutaneous -Post Debridement Size (cm) - Length 10.3 -Post Debridement Size (cm) - Width 3 -Post Debridement Size (cm) - Depth 0.1 -Total Square Cm 30.9 -Wound/Ulcer Outcome Not Healed -Ulcer Cleansing Not Cleansed -Foul Odor after Cleansing No -Bioengineered Tissue No -Bleeding Controlled with NA -Offloading No -Treatment Response Procedure Tolerated Well [See Physician Procedure note for Specifics] Pain Scale: 0-10 Numeric [Pain] -Is Patient Pain Free? Yes Psych/Mental Status: Normal Affect, Appropriate Debridement Note Post-Debridement Measurements/Treatment WC - Nurse 2 - General Ulcer CM Notes Start: 11/25/18 15:35 Freq: Status: Active Protocol: Activity Type Activity Date Activity User E-Sign Co-Sign Detail Recorded Client Recorded Date Recorded By Document 11/25/18 16:02 CS [id number] 11/25/18 16:06 CS Document 12/02/18 14:35 CS [id number] 12/02/18 14:38 CS Document 12/09/18 15:06 CS [id number] 12/09/18 15:07 CS Document 12/16/18 15:38 CS [id number] 12/16/18 15:43 CS 11/25/18 12/02/18 12/09/18 16:02 14:35 15:06 Wound Center Nurse 2 #7- RT INFERIOR SHARP CLUSTER -Time -Correct Patient -Correct Side, Site, Position -Correct Procedure -Procedure Performed -Type of Procedure -Clinical Debridement -Post Debridement Size (cm) - Length -Post Debridement Size (cm) - Width -Post Debridement Size (cm) - Depth -Total Square Cm -Wound/Ulcer Outcome -Ulcer Cleansing -Foul Odor after Cleansing -Bleeding Controlled with -Offloading -Treatment Response #6- RT SUPERIOR SHARP CLUSTER -Time -Correct Patient -Correct Side, Site, Position -Correct Procedure -Procedure Performed -Type of Procedure -Clinical Debridement -Post Debridement Size (cm) - Length -Post Debridement Size (cm) - Width -Post Debridement Size (cm) - Depth -Total Square Cm -Wound/Ulcer Outcome -Ulcer Cleansing -Foul Odor after Cleansing -Bioengineered Tissue -Bleeding Controlled with -Offloading -Treatment Response 5- LT LAT LEG CLUSTER -Time -Correct Patient -Correct Side, Site, Position -Correct Procedure -Procedure Performed -Type of Procedure -Clinical Debridement -Post Debridement Size (cm) - Length -Post Debridement Size (cm) - Width -Post Debridement Size (cm) - Depth -Total Square Cm -Wound/Ulcer Outcome -Ulcer Cleansing -Foul Odor after Cleansing -Bioengineered Tissue -Bleeding Controlled with -Offloading -Treatment Response #4 LEFT MEDIAL LE -Time 16:02 -Post Debridement Size (cm) - Length 0.1 -Post Debridement Size (cm) - Width 0.1 -Post Debridement Size (cm) - Depth 0.1 -Total Square Cm 0.01 -Wound/Ulcer Outcome Healed- Epithelialized #3 LEFT LATERAL LE -Time 16:02 14:36 15:06 -Correct Patient Yes Yes Yes -Correct Side, Site, Position Yes Yes Yes -Correct Procedure Yes Yes Yes -Procedure Performed Yes Yes Yes -Type of Procedure Debridement Debridement -Clinical Debridement Subcutaneous Subcutaneous -Post Debridement Size (cm) - Length 0.9 0.5 0 -Post Debridement Size (cm) - Width 1.2 0.7 0 -Post Debridement Size (cm) - Depth 0.1 0.1 0 -Total Square Cm 1.08 0.35 0 -Wound/Ulcer Outcome Not Healed Not Healed Healed- Epithelialized -Ulcer Cleansing Not Cleansed Not Cleansed -Foul Odor after Cleansing No No -Bioengineered Tissue No No -Bleeding Controlled with NA Pressure -Offloading No No -Treatment Response Procedure Procedure Tolerated Well Tolerated Well #1 RIGHT SHARP CLUSTER -Time 16:02 14:38 -Correct Patient Yes -Correct Side, Site, Position Yes -Correct Procedure Yes -Procedure Performed Yes -Type of Procedure Debridement -Clinical Debridement Subcutaneous -Post Debridement Size (cm) - Length 0.1 0 -Post Debridement Size (cm) - Width 0.1 0 -Post Debridement Size (cm) - Depth 0.1 0 -Total Square Cm 0.01 0 -Wound/Ulcer Outcome Not Healed Healed- Epithelialized -Ulcer Cleansing Not Cleansed -Foul Odor after Cleansing No -Bioengineered Tissue No -Bleeding Controlled with NA -Offloading No -Treatment Response Procedure Tolerated Well Pain Scale: 0-10 Numeric Is Patient Pain Free? Yes Yes Yes 12/16/18 15:38 Wound Center Nurse 2 #7- RT INFERIOR SHARP CLUSTER -Time 15:40 -Correct Patient Yes -Correct Side, Site, Position Yes -Correct Procedure Yes -Procedure Performed Yes -Type of Procedure Debridement -Clinical Debridement Subcutaneous -Post Debridement Size (cm) - Length 1.5 -Post Debridement Size (cm) - Width 1.5 -Post Debridement Size (cm) - Depth 0.1 -Total Square Cm 2.25 -Wound/Ulcer Outcome Not Healed -Ulcer Cleansing Not Cleansed -Foul Odor after Cleansing No -Bleeding Controlled with NA -Offloading No -Treatment Response Procedure Tolerated Well #6- RT SUPERIOR SHARP CLUSTER -Time 15:40 -Correct Patient Yes -Correct Side, Site, Position Yes -Correct Procedure Yes -Procedure Performed Yes -Type of Procedure Debridement -Clinical Debridement Subcutaneous -Post Debridement Size (cm) - Length 2.8 -Post Debridement Size (cm) - Width 4.0 -Post Debridement Size (cm) - Depth 0.1 -Total Square Cm 11.20 -Wound/Ulcer Outcome Not Healed -Ulcer Cleansing Not Cleansed -Foul Odor after Cleansing No -Bioengineered Tissue No -Bleeding Controlled with NA -Offloading No -Treatment Response Procedure Tolerated Well 5- LT LAT LEG CLUSTER -Time 15:40 -Correct Patient Yes -Correct Side, Site, Position Yes -Correct Procedure Yes -Procedure Performed Yes -Type of Procedure Debridement -Clinical Debridement Subcutaneous -Post Debridement Size (cm) - Length 10.3 -Post Debridement Size (cm) - Width 3 -Post Debridement Size (cm) - Depth 0.1 -Total Square Cm 30.9 -Wound/Ulcer Outcome Not Healed -Ulcer Cleansing Not Cleansed -Foul Odor after Cleansing No -Bioengineered Tissue No -Bleeding Controlled with NA -Offloading No -Treatment Response Procedure Tolerated Well #4 LEFT MEDIAL LE -Time -Post Debridement Size (cm) - Length -Post Debridement Size (cm) - Width -Post Debridement Size (cm) - Depth -Total Square Cm -Wound/Ulcer Outcome #3 LEFT LATERAL LE -Time -Correct Patient -Correct Side, Site, Position -Correct Procedure -Procedure Performed -Type of Procedure -Clinical Debridement -Post Debridement Size (cm) - Length -Post Debridement Size (cm) - Width -Post Debridement Size (cm) - Depth -Total Square Cm -Wound/Ulcer Outcome -Ulcer Cleansing -Foul Odor after Cleansing -Bioengineered Tissue -Bleeding Controlled with -Offloading -Treatment Response #1 RIGHT SHARP CLUSTER -Time -Correct Patient -Correct Side, Site, Position -Correct Procedure -Procedure Performed -Type of Procedure -Clinical Debridement -Post Debridement Size (cm) - Length -Post Debridement Size (cm) - Width -Post Debridement Size (cm) - Depth -Total Square Cm -Wound/Ulcer Outcome -Ulcer Cleansing -Foul Odor after Cleansing -Bioengineered Tissue -Bleeding Controlled with -Offloading -Treatment Response Pain Scale: 0-10 Numeric Is Patient Pain Free? Yes Wound debrided: right inferior leg cluster Laterality: Right Type of Debridement: Excisional debridement Anesthesia Used: 4% Lidocaine Solution Depth: Down to and including healthy tissue, in the subcutaneous layer Percentage of wound debrided: 100 Instrument Used: 5mm curette Tissue Removed: yellow slough, devitalized tissue Severity: Fat Layer Exposed Amount of bleeding with debridement: Mild Bleeding Controlled with: Compression and gauze Patient tolerated procedure well - Additional Wound Wound debrided: right superior leg cluster Laterality: Right Type of Debridement: Excisional debridement Anesthesia Used: 4% Lidocaine Solution Depth: Down to and including healthy tissue, in the subcutaneous layer Percentage of wound debrided: 100 Instrument Used: 5mm curette Tissue Removed: yellow slough, devitalized tissue Severity: Fat Layer Exposed Amount of bleeding with debridement: Mild Bleeding Controlled with: Compression and gauze Patient tolerated procedure: Patient tolerated procedure well - Additional Wound Wound debrided: left lateral leg cluster Laterality: Left Type of Debridement: Excisional debridement Anesthesia Used: 4% Lidocaine Solution Depth: Down to and including healthy tissue, in the subcutaneous layer Percentage of wound debrided: 100 Instrument Used: 5mm curette Tissue Removed: yellow slough, devitalized tissue Severity: Fat Layer Exposed Amount of bleeding with debridement: Mild Bleeding Controlled with: Compression and gauze Patient tolerated procedure: Patient tolerated procedure well Assessment/Plan Active Problems Diabetes mellitus, insulin dependent (IDDM), uncontrolled (Chronic) Venous insufficiency of both lower extremities (Chronic) Chronic venous hypertension w/ulcer and inflammation involv both sides (Chronic) Assessment: nonhealing venous ulcers of b/l lower extremities. Edema b/l lower extremities. IDDM Plan: David developed new ulcers this week likely related to him being on his feet at work. He will use Aquacel xtra and will use Circaids for compression. Doxycycline was prescribed to treat for cellulitis. Discussed decreased salt intake and weight loss as well as possibly having him do light duty which he states his job will not accomodate him. Vascular doesn't feel that he is a candidate for intervention at this time. Discussed importance of avoiding idle sitting and standing to treat his ulcers and encouraged to elevate his feet at or above the level of his heart as much as possible. Encouraged weight loss, tight glucose control as well. He will follow up in 1 week.
== END 2018-12-22 23:59 ==
LOC: WC 15:00
PROVIDERS: Family Provider Internal Medicine; PCP Internal Medicine; Referring Provider Family Medicine; Visit Provider Family Medicine
DX: E10.622 Type 1 diabetes mellitus with other skin ulcer (principal); E10.51 Type 1 diabetes mellitus with diabetic peripheral angiopathy without gangrene; E10.65 Type 1 diabetes mellitus with hyperglycemia; I87.333 Chronic venous hypertension (idiopathic) with ulcer and inflammation of bilateral lower extremity; I87.2 Venous insufficiency (chronic) (peripheral); L97.812 Non-pressure chronic ulcer of other part of right lower leg with fat layer exposed; L97.822 Non-pressure chronic ulcer of other part of left lower leg with fat layer exposed
CPT/HCPCS: 11042; 11045; 99212; G0463

== ENCOUNTER 2018-12-28 07:49 | Outpatient (RCR) | payer OTHER, SELFPAY ==
[2018-12-23 15:21] VITALS: BMI 46.2
--- NOTE | 2018-12-29 18:14 | HP.FCE ---
HP OT Functional Capacity Eval - Task Lift Floor (Occasional 1-33% of Day): 60lb Floor (Frequent 34-66% of Day): 30lb Floor (Constant 67-100% of Day): 12lb Floor PDL: Medium Knee (Occasional 1-33% of Day): 60lb Knee (Frequent 34-66% of Day): 30lb Knee (Constant 67-100% of Day): 12lb Knee PDL: Medium Waist (Occasional 1-33% of Day): 60lb Waist (Frequent 34-66% of Day): 30lb Waist (Constant 67-100% of Day): 12lb Waist PDL: Medium Shoulder (Occasional 1-33% of Day): 50lb Shoulder (Frequent 34-66% of Day): 25lb Shoulder (Constant 67-100% of Day): 10lb Shoulder PDL: Medium Overhead (Occasional 1-33% of Day): 50lb Overhead (Frequent 34-66% of Day): 25lb Overhead (Constant 67-100% of Day): 10lb Overhead PDL: Medium Comments: 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 - Work Activity/Posture Bending: Frequent Ability (34-66% of day) Squatting: Frequent Ability (34-66% of day) Kneeling: Occasional Ability (1-33% of day) Reaching out: Frequent Ability (34-66% of day) Reaching up: Frequent Ability (34-66% of day) Sitting: Constant Ability (67-100% of day) Walking: Constant Ability (67-100% of day) Standing: Constant Ability (67-100% of day) - Reference Duration Sedentary Sedentary Light Light Light Medium Medium Medium Heavy Very Heavy Heavy Occasional (0-33% of day) Frequent (34-66% of day) Constant (67-100% of day) 10 # Negligible Negligible 15 # 8 # Negligible 20 # 10# Negli. 35 # 18 # 7 # 50 # 25 # 10 # 75 # 100 # >100 # 38 # 50 # >50 # 15 # 20 # >20 # - Patient Information Height: 6 ft 3 in Weight:: 167.829 kg Hand Dominance: L handed - Medical History Medical History Including Restrictions: PMHx: L humerous fx May 26 2018, DM II, BP, high cholesterol, carpel tunnel sx bilateral hands, L heel sx, cellulitus BLE - Diagnoses Diagnoses: L humerous fx May 26 2018, DM II, BP, high cholesterol, carpel tunnel sx bilateral hands, L heel sx, cellulitus BLE - Symptoms Symptoms: Pt reports: achiness in L arm when sitting and not moving, if moves around to losen it up then he is fine - Pain Pain: Pt reports 1/10 pain L proximal humerous. 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 AMB no device, has WW, cane, w/c, crutches, rollator available if needed. Has 3 in 1 commode and shower chair available. Independent with BADLs/IADLs, completes own meal prep and laundry tasks. Mother assist with socks and tieing of shoes. Tub/shower combo, HHS. Comfort height commodes. Cat to care for cleaning litter box and feeding. Drives. Pt gets groceries and states able to carry to car and from car into house. Hobbies wood widdling, puzzles, collects baseball cards. - Physical Examination ROM: R UE WFL, L UE limited AROM shoulder flexion 95', abduction 75'. BLE WFL Strength: R UE 4+/5, L UE 4+/5, R LE 4+/5, L LE 4+/5 Right Biofuels Plant Manager Strength Average: 105.66 Left Biofuels Plant Manager Strength Average: 94.00 Right Lateral Pinch Average: 23.66 Left Lateral Pinch Average: 20.00 Right Tripod Pinch Average: 18.00 Left Tripod Pinch Average: 17.00 Sensation: Pt states no numbness or tingling or sensation concerns. Fine Motor: No fine motor concerns per pt. Pt able to complete all fasteners on his own and writing tasks independently. Balance: Pt reports 1 fall in past 3 months, fell down to knees, got up on his own was at work, no injuries. - Non Material Handling Activities Bendinx, 10x, 10x fast not able to go all the way down to floor approximatley reaching 5 inches from floor each time Squattinx, 10x, 8x fast, pt had to take standing rest break between 10 and 8 fast secondary to stated knees feeling unsteady. Kneeling: Pt able to complete 4 kneels using R hand on desk for support. Pt legs started to get unsteady and pt didn't feel he could complete anymore. Reaching out/up: reaching out R/L 3x, 10x, 10x fast. reaching up 3x, 10x, 10x fast. Pt stated a little discomfort L shoulder during reaching 1/10 pain. Pt was limited with ability to get L arm up all the way for reaching up secondasry to limited AROM, but very willing to try his best. Walking: Pt able to complete 15 min walk test w/o rest break needed. Standing: Pt able to stand w/o any loss of balance. Sitting: Pt able to sit without fidgeting or moving around for pain or any discomfort. Climbing Stairs: Pt able to complete flight of steps 10 using 1 handrail support with R hand up/down reciprocal foot work. - Dynamic Occasional Lifting Capacity Floor Lift: 60lb max Knee Lift: 60lb max Waist Lift: 60lb max Shoulder Lift: 50lb max Overhead Lift: 50lb max Carryinlb max
== END 2018-12-28 19:00 | disposition home or self-care (01) ==
LOC: OT 07:49
PROVIDERS: Family Provider Family Medicine; PCP Family Medicine; Referring Provider Physician Assistant; Visit Provider Physician Assistant
DX: S42.302D Unspecified fracture of shaft of humerus, left arm, subsequent encounter for fracture with routine healing (principal)
CPT/HCPCS: 97165; 97167

== ENCOUNTER 2019-01-05 15:00 | Outpatient (RCR) | payer BC, SELFPAY ==
[2018-12-23 15:21] VITALS: BMI 46.2
[2018-12-30 15:48] VITALS: BMI 46.2
--- NOTE | 2019-01-02 18:34 | HP.OTEVAL ---
Patient's Visit Information ALEXEI BARRIOS is a 48 year old M, referred to Occupational Therapy by Claudia Mckeon DO, with a diagnosis of B LE lymphedema. Date of Evaluation: 01/02/19 Occupational Therapist: Anna Pichardo, TRICER/Callum, CHT - Subjective Subjective: pt states for about a year he has noticed swelling in his LE. pt states he has had blister and the blisters have opened and he sees Dr. Mckeon at the wound center- pt states he does notice his legs will swell with increase salt intake. pt states following his broken arm in May he noticed is legs were swelling more. pt states he is back to work, and he feels his legs are heavy, and tight. 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 pt states he works 7-8-hour day- pt states he has 30 min lunch break. pt states he has been sleeping on a couch with legs on a step stool or in a recliner. Pt states he has not been able to sleep in his bed since he fell and broke his arm. Pt would like to learn how to mtg his LE swelling. - Pain bilateral knees 0 Pain Intensity Range: 0, 4 - Lymphedema (Circumferential Measure) Mid-foot: right 28cm left 27cm Ankle: right 33cm left 33cm Lower calf: right 33cm left 31cm Largest calf: right 51cm left 48cm Below knee: right 49cm left 45cm - Sensation Sensation Comments: denies - Lower Limb Functional Index Lower Extremity Functional Score: 47 - Goals Demonstrate a 20% reduction in edema by d/c: Yes Demonstrate adequate knowledge of self-massage by 2nd week: Yes Demonstrate adequate knowledge skin care/prec by 2nd week: Yes Demonstrate adequate knowledge therapeutic exercises by d/c: Yes Select approp compression garment w/donning/care/wear by d/c: Yes Voice need to replace compression garment every 4-6mo by dc: Yes - Rehabilitation General Assessment: Pt arrives with BLE wrapped with co-band to assist with LE swelling and healing wounds. PT demo need for skilled OT services 1x week for 3 weeks to ed. pt on lymph system, treatments, use of compression socks, skin care and Exercises to assist with circulation. Today pt ed.on lymph system physiology, treatment and need for compression hose. Pt also ed. on skin care and lymphedema precautions. Pt has order from and states he will get those at [facility]. Pt advised to return once he has the compression hose to ensure proper fit. Pt demo understanding. with return pt will be ed. on lymph stim ex, self-manual lymph drainage and therapeutic ex. that is beneficial to lymphedema pts. Pt demo understanding and agrees to POC. Rehabilitation Potential: Good - Anticipated Interventions Anticipated Interventions: Manual Lymph Drainage, Education re Life-long lymphedema Management, Education re Skin Care and Precautions, Education re Self Massage Techniques, Education re Correct Donning Tech,Care&Wearing Sched Comp Garments, Home Program - Visit Plan Frequency: 1x/Week Duration: 3 Weeks TEXT: Thank you for the opportunity to evaluate your patient. For Medicare and Medicare HMO plans, please review the plan of care and approve it. It will need to be FAXED BACK to us at [phone] for Medicare purposes. Please let me know if there are questions or concerns regarding this plan of care. Physician Signature: Date:
--- NOTE | 2019-06-05 12:36 | HP.OT.NRP ---
HP - Discharge Summary - Patient Information ALEXEI BARRIOS was seen in my office for initial evaluation on 01/02/19. The following Plan of Care was established for this patient: Initial Frequency: 1x/Week Initial Duration: 3 Weeks Plan: fit for compression socks - Anticipated Interventions Anticipated Interventions: Manual Lymph Drainage, Education re Life-long lymphedema Management, Education re Skin Care and Precautions, Education re Self Massage Techniques, Education re Correct Donning Tech,Care&Wearing Sched Comp Garments, Home Program This patient was last seen in our office 01/05/19. Pertinent comments regarding their Occupational therapy will appear below: pt was seen 2 visits. pt ed on need of compression socks and was to call insurance to see of they would cover compression socks, pt also ed. on lymph stim ex. pt demo understanding, pt has not scheduled further apts and due to time lapse is d/c. At this point I will be discontinuing this patient from occupational therapy. I would be happy to see this patient again in the future if found appropriate by the physician. Thank you! Anna Pichardo, OTR/L, CHT
== END 2019-01-05 19:00 | disposition home or self-care (01) ==
LOC: OT 15:00
PROVIDERS: Family Provider Family Medicine; PCP Family Medicine; Referring Provider Family Medicine; Visit Provider Family Medicine
DX: I89.0 Lymphedema, not elsewhere classified (principal)
CPT/HCPCS: 97110; 97166

== ENCOUNTER 2019-01-13 14:45 | Outpatient (RCR) | payer BC, SELFPAY ==
[2018-12-23 01:25] VITALS: BP 137/77; PULSE 76; RESP 16; TEMP 35.8
[2018-12-23 15:21] VITALS: TEMP 36.2; BMI 46.2
--- NOTE | 2018-12-23 18:01 | PCM.WC.PN ---
(1) Lymphedema of both lower extremities Status: Chronic Current Visit: Yes Code(s): I89.0 - Lymphedema, not elsewhere classified (2) Diabetes mellitus, insulin dependent (IDDM), uncontrolled Status: Chronic Current Visit: Yes Qualifiers: Glycemic state: with hyperglycemia Code(s): E10.65 - Type 1 diabetes mellitus with hyperglycemia (3) Venous ulcers of both lower extremities Status: Chronic Current Visit: Yes Code(s): I87.2 - Venous insufficiency (chronic) (peripheral); L97.919 - Non-pressure chronic ulcer of unspecified part of right lower leg with unspecified severity; L97.929 - Non-pressure chronic ulcer of unspecified part of left lower leg with unspecified severity (4) Chronic venous hypertension w/ulcer and inflammation involv both sides Status: Chronic Current Visit: Yes Code(s): I87.333 - Chronic venous hypertension (idiopathic) with ulcer and inflammation of bilateral lower extremity; L97.919 - Non-pressure chronic ulcer of unspecified part of right lower leg with unspecified severity; L97.929 - Non-pressure chronic ulcer of unspecified part of left lower leg with unspecified severity Type of Wound Date of Service: 12/23/18 Chief Complaint: nonhealing ulcers of lower extremities b/l, edema History of Wound: David is a 48 year old male that presents to the wound center for evaluation and treatment of nonhelaing ulcers of his lower legs that have been present for approximately 4 weeks. He states that his legs became swollen and then developed blisters which itched and broke open leaving sores. He has seen his PCP and they started him on Keflex 500 mg QID and he has been taking this for 4 weeks with minimal improvement. He has also been applying antibiotic ointment. He was also started on lasix which has helped his swelling somewhat. He works at the [employer] and he is on his feet all the time there. He thinks his last A1C was in August and was 8.0%. He underwent vascular testing which showed normal arterial circulation but incompetence of veins in his lower extremities bilaterally right > left. He saw Dr. Steinberg for evaluation for possible venous ablation but he did not recommend any treatment at this time. Progress of Wound: Kian is here for follow up of venous ulcers. He did not do well with Juxtalite compression wraps. He reports that they slid down his legs. He went back to tubigrip compression and has been elevating his legs except for during work hours where he does not have the ability to rest or elevate. - Physical Exam Vital Signs Temp Pulse Resp BP 97.1 F L 76 16 137/77 H 12/23/18 15:21 12/23/18 01:25 12/23/18 01:25 12/23/18 01:25 General: Alert, Oriented x3, Cooperative, No apparent distress HEENT: Atraumatic, Normocephalic Oral: Moist Mucosa Lungs: Clear to auscultation Cardiovascular: Regular rate, Regular Rhythm Abdomen: Obese Extremities: Edema Skin: Ulcer/ Wound Wound Measurements and Assessment WC - Nurse 1 - General Ulcer Measurement Start: 12/23/18 15:21 Freq: Status: Active Protocol: Activity Type Activity Date Activity User E-Sign Co-Sign Detail Recorded Client Recorded Date Recorded By Document 12/23/18 15:21 [facility] [id number] 12/23/18 15:38 [facility] 12/23/18 15:21 Wound Center Nurse 1 [Ulcer Assessment] #7- RT INFERIOR DELUNA CLUSTER -Combined with other wound No -Current Size (cm) - Length 0.8 -Current Size (cm) - Width 1.1 -Current Size (cm) - Depth 0.1 -Total Square Cm 0.88 -Photo Taken No -Epithelialization Small 1-33% -Tunneling No -Undermining/Tunneling No -Circular Undermining No -Exudate Amt Small -Exudate Type Serosanguineous -Wound Margin Flat & Intact -Granulation Amt Large (67-100%) -Granulation Quality [place] -Slough/Fibrin Yes -Necrosis Amt Small (1-33%) -Necrotic Tissue Type Adherent Slough -Texture (Milly-wound Skin Appearance) Scarring -Moisture (Milly-wound Skin Appearance Dry/Scaly ) -Color (Milly-wound Skin Appearance) Assessed Erythema -Temperature (Milly-wound Skin No Abnormality Appearance) (Pt Warm) -Tenderness on Palpation (Milly-wound No Skin Appearance) -Ulcer Cleansing Rinsed/ Irrigated with Saline -Foul Odor after Cleansing No -Anesthetic Used 5% Lidocaine Gel #6- RT SUPERIOR DELUNA CLUSTER -Combined with other wound No -Current Size (cm) - Length 0.9 -Current Size (cm) - Width 0.9 -Current Size (cm) - Depth 0.1 -Total Square Cm 0.81 -Photo Taken No -Epithelialization Small 1-33% -Tunneling No -Undermining/Tunneling No -Circular Undermining No -Exudate Amt Small -Exudate Type Serosanguineous -Wound Margin Flat & Intact -Granulation Amt Large (67-100%) -Granulation Quality [place] -Slough/Fibrin Yes -Necrosis Amt Small (1-33%) -Necrotic Tissue Type Adherent Slough -Texture (Milly-wound Skin Appearance) Assessed Scarring -Moisture (Milly-wound Skin Appearance Assessed ) Dry/Scaly -Color (Milly-wound Skin Appearance) Assessed Erythema -Temperature (Milly-wound Skin No Abnormality Appearance) (Pt Warm) -Tenderness on Palpation (Milly-wound No Skin Appearance) -Ulcer Cleansing Rinsed/ Irrigated with Saline -Foul Odor after Cleansing No -Anesthetic Used 5% Lidocaine Gel 5- LT LAT LEG CLUSTER -Combined with other wound No -Current Size (cm) - Length 6.7 -Current Size (cm) - Width 1.7 -Current Size (cm) - Depth 0.1 -Total Square Cm 11.39 -Photo Taken No -Epithelialization Small 1-33% -Tunneling No -Undermining/Tunneling No -Circular Undermining No -Exudate Amt Small -Exudate Type Serosanguineous -Wound Margin Flat & Intact -Granulation Amt Large (67-100%) -Granulation Quality [place] -Slough/Fibrin Yes -Necrosis Amt Small (1-33%) -Necrotic Tissue Type Adherent Slough -Texture (Milly-wound Skin Appearance) Scarring -Moisture (Milly-wound Skin Appearance Dry/Scaly ) -Color (Milly-wound Skin Appearance) Erythema -Temperature (Milly-wound Skin No Abnormality Appearance) (Pt Warm) -Tenderness on Palpation (Milly-wound No Skin Appearance) -Ulcer Cleansing Rinsed/ Irrigated with Saline -Foul Odor after Cleansing No -Anesthetic Used 5% Lidocaine Gel [Edema Assessment] -Lower Limb Edema Present Yes -Right Calf (cm) 46.7 -Right Ankle (cm) 25.1 -Left Calf (cm) 46.9 -Left Ankle (cm) 25.9 WC - Nurse 2 - General Ulcer CM Notes Start: 12/23/18 15:21 Freq: Status: Active Protocol: Activity Type Activity Date Activity User E-Sign Co-Sign Detail Recorded Client Recorded Date Recorded By Document 12/23/18 16:00 MW [id number] 12/23/18 16:09 MW 12/23/18 16:00 Wound Center Nurse 2 [Procedure/Treatment] #7- RT INFERIOR DELUNA CLUSTER -Time 16:01 -Correct Patient Yes -Correct Side, Site, Position Yes -Correct Procedure Yes -Procedure Performed Yes -Type of Procedure Debridement -Clinical Debridement Subcutaneous -Post Debridement Size (cm) - Length 1.0 -Post Debridement Size (cm) - Width 1.0 -Post Debridement Size (cm) - Depth 0.1 -Total Square Cm 1.00 -Wound/Ulcer Outcome Not Healed -Ulcer Cleansing Rinsed/ Irrigated with Saline -Foul Odor after Cleansing No -Bioengineered Tissue No -Bleeding Controlled with Pressure -Offloading No -Treatment Response Procedure Tolerated Well #6- RT SUPERIOR DELUNA CLUSTER -Time 16:01 -Correct Patient Yes -Correct Side, Site, Position Yes -Correct Procedure Yes -Procedure Performed Yes -Type of Procedure Debridement -Clinical Debridement Subcutaneous -Post Debridement Size (cm) - Length 1.0 -Post Debridement Size (cm) - Width 1.0 -Post Debridement Size (cm) - Depth 0.1 -Total Square Cm 1.00 -Wound/Ulcer Outcome Not Healed -Ulcer Cleansing Rinsed/ Irrigated with Saline -Foul Odor after Cleansing No -Bioengineered Tissue No -Bleeding Controlled with Pressure -Offloading No -Treatment Response Procedure Tolerated Well 5- LT LAT LEG CLUSTER -Time 16:01 -Correct Patient Yes -Correct Side, Site, Position Yes -Correct Procedure Yes -Procedure Performed Yes -Type of Procedure Debridement -Clinical Debridement Subcutaneous -Post Debridement Size (cm) - Length 7.1 -Post Debridement Size (cm) - Width 1.5 -Post Debridement Size (cm) - Depth 0.1 -Total Square Cm 10.65 -Wound/Ulcer Outcome Not Healed -Ulcer Cleansing Rinsed/ Irrigated with Saline -Foul Odor after Cleansing No -Bioengineered Tissue No -Bleeding Controlled with Pressure -Offloading No [See Physician Procedure note for Specifics] Pain Scale: 0-10 Numeric [Pain] -Is Patient Pain Free? Yes Psych/Mental Status: Normal Affect, Appropriate Debridement Note Post-Debridement Measurements/Treatment WC - Nurse 2 - General Ulcer CM Notes Start: 12/23/18 15:21 Freq: Status: Active Protocol: Activity Type Activity Date Activity User E-Sign Co-Sign Detail Recorded Client Recorded Date Recorded By Document 12/23/18 16:00 MW [id number] 12/23/18 16:09 MW 12/23/18 16:00 Wound Center Nurse 2 #7- RT INFERIOR DELUNA CLUSTER -Time 16:01 -Correct Patient Yes -Correct Side, Site, Position Yes -Correct Procedure Yes -Procedure Performed Yes -Type of Procedure Debridement -Clinical Debridement Subcutaneous -Post Debridement Size (cm) - Length 1.0 -Post Debridement Size (cm) - Width 1.0 -Post Debridement Size (cm) - Depth 0.1 -Total Square Cm 1.00 -Wound/Ulcer Outcome Not Healed -Ulcer Cleansing Rinsed/ Irrigated with Saline -Foul Odor after Cleansing No -Bioengineered Tissue No -Bleeding Controlled with Pressure -Offloading No -Treatment Response Procedure Tolerated Well #6- RT SUPERIOR DELUNA CLUSTER -Time 16:01 -Correct Patient Yes -Correct Side, Site, Position Yes -Correct Procedure Yes -Procedure Performed Yes -Type of Procedure Debridement -Clinical Debridement Subcutaneous -Post Debridement Size (cm) - Length 1.0 -Post Debridement Size (cm) - Width 1.0 -Post Debridement Size (cm) - Depth 0.1 -Total Square Cm 1.00 -Wound/Ulcer Outcome Not Healed -Ulcer Cleansing Rinsed/ Irrigated with Saline -Foul Odor after Cleansing No -Bioengineered Tissue No -Bleeding Controlled with Pressure -Offloading No -Treatment Response Procedure Tolerated Well 5- LT LAT LEG CLUSTER -Time 16:01 -Correct Patient Yes -Correct Side, Site, Position Yes -Correct Procedure Yes -Procedure Performed Yes -Type of Procedure Debridement -Clinical Debridement Subcutaneous -Post Debridement Size (cm) - Length 7.1 -Post Debridement Size (cm) - Width 1.5 -Post Debridement Size (cm) - Depth 0.1 -Total Square Cm 10.65 -Wound/Ulcer Outcome Not Healed -Ulcer Cleansing Rinsed/ Irrigated with Saline -Foul Odor after Cleansing No -Bioengineered Tissue No -Bleeding Controlled with Pressure -Offloading No Pain Scale: 0-10 Numeric Is Patient Pain Free? Yes Wound debrided: right inferior deluna cluster Laterality: Right Type of Debridement: Excisional debridement Anesthesia Used: 4% Lidocaine Solution Depth: Down to and including healthy tissue, in the subcutaneous layer Percentage of wound debrided: 100 Instrument Used: 5mm curette Tissue Removed: yellow slough, devitalized tissue Severity: Fat Layer Exposed Amount of bleeding with debridement: Mild Bleeding Controlled with: Compression and gauze Patient tolerated procedure well - Additional Wound Wound debrided: right superior deluna cluster Laterality: Right Type of Debridement: Excisional debridement Anesthesia Used: 4% Lidocaine Solution, 5% Lidocaine Gel Depth: Down to and including healthy tissue, in the subcutaneous layer Percentage of wound debrided: 100 Instrument Used: 5mm curette Tissue Removed: yellow slough, devitalized tissue Severity: Fat Layer Exposed Amount of bleeding with debridement: Mild Bleeding Controlled with: Compression and gauze Patient tolerated procedure: Patient tolerated procedure well - Additional Wound Wound debrided: left lateral leg cluster Laterality: Left Type of Debridement: Excisional debridement Anesthesia Used: 4% Lidocaine Solution, 5% Lidocaine Gel Depth: Down to and including healthy tissue, in the subcutaneous layer Percentage of wound debrided: 100 Instrument Used: 5mm curette Tissue Removed: yellow slough, devitalized tissue Severity: Fat Layer Exposed Amount of bleeding with debridement: Mild Bleeding Controlled with: Compression and gauze Patient tolerated procedure: Patient tolerated procedure well Assessment/Plan Active Problems Diabetes mellitus, insulin dependent (IDDM), uncontrolled (Chronic) Venous ulcers of both lower extremities (Chronic) Chronic venous hypertension w/ulcer and inflammation involv both sides (Chronic) Lymphedema of both lower extremities (Chronic) Assessment: nonhealing venous ulcers of b/l lower extremities. Edema b/l lower extremities. IDDM Plan: David's ulcers were evaluated and debrided today. He will continue to use Aquacel xtra tubigrips for compression. Referral to lymphedema clinic at [facility] made. Discussed decreased salt intake and weight loss as well as possibly having him do light duty which he states his job will not accomodate him. Vascular doesn't feel that he is a candidate for intervention at this time. Discussed importance of avoiding idle sitting and standing to treat his ulcers and encouraged to elevate his feet at or above the level of his heart as much as possible. Encouraged weight loss, tight glucose control as well. He will follow up in 1 week.
--- NOTE | 2018-12-23 18:06 | PN.PCM_ITS ---
(1) Lymphedema of both lower extremities Status: Chronic Current Visit: Yes Code(s): I89.0 - Lymphedema, not elsewhere classified (2) Diabetes mellitus, insulin dependent (IDDM), uncontrolled Status: Chronic Current Visit: Yes Qualifiers: Glycemic state: with hyperglycemia Code(s): E10.65 - Type 1 diabetes mellitus with hyperglycemia (3) Venous ulcers of both lower extremities Status: Chronic Current Visit: Yes Code(s): I87.2 - Venous insufficiency (chronic) (peripheral); L97.919 - Non-pressure chronic ulcer of unspecified part of right lower leg with unspecified severity; L97.929 - Non-pressure chronic ulcer of unspecified part of left lower leg with unspecified severity (4) Chronic venous hypertension w/ulcer and inflammation involv both sides Status: Chronic Current Visit: Yes Code(s): I87.333 - Chronic venous hypertension (idiopathic) with ulcer and inflammation of bilateral lower extremity; L97.919 - Non-pressure chronic ulcer of unspecified part of right l ower leg with unspecified severity; L97.929 - Non-pressure chronic ulcer of unspecified part of left lower leg with unspecified severity Type of Wound Date of Service: 12/23/18 Chief Complaint: nonhealing ulcers of lower extremities b/l, edema History of Wound: David is a 48 year old male that presents to the wound center for evaluation and treatment of nonhelaing ulcers of his lower legs that have been present for approximately 4 weeks. He states that his legs became swollen and then developed blisters which itched and broke open leaving sores. He has seen his PCP and they started him on Keflex 500 mg QID and he has been taking this for 4 weeks with minimal improvement. He has also been applying antibiotic ointment. He was also started on lasix which has helped his swelling somewhat. He works at the [employer] full stack [employer] and he is on his feet all the time there. He thinks his last A1C was in August and was 8.0%. He underwent vascular testing which showed normal arterial circulation but incompetence of veins in his lower extremities bilaterally right > left. He saw Dr. Steinberg for evaluation for possible venous ablation but he did not recommend any treatment at this time. Progress of Wound: Kain is here for follow up of venous ulcers. He did not do well with Juxtalite compression wraps. He reports that they slid down his legs. He went back to tubigrip compression and has been elevating his legs except for during work hours where he does not have the ability to rest or elevate. - Physical Exam Vital Signs Temp Pulse Resp BP 97.1 F L 76 16 137/77 H 12/23/18 15:21 12/23/18 01:25 12/23/18 01:25 12/23/18 01:25 General: Alert, Oriented x3, Cooperative, No apparent distress HEENT: Atraumatic, Normocephalic Oral: Moist Mucosa Lungs: Clear to auscultation Cardiovascular: Regular rate, Regular Rhythm Abdomen: Obese Extremities: Edema Skin: Ulcer/ Wound Wound Measurements and Assessment WC - Nurse 1 - General Ulcer Measurement Start: 12/23/18 15:21 Freq: Status: Active Protocol: Activity Type Activity Date Activity User E-Sign Co-Sign Detail Recorded Client Recorded Date Recorded By Document 12/23/18 15:21 [facility] [id number] 12/23/18 15:38 [facility] 12/23/18 15:21 Wound Center Nurse 1 [Ulcer Assessment] #7- RT INFERIOR DELUNA CLUSTER -Combined with other wound No -Current Size (cm) - Length 0.8 -Current Size (cm) - Width 1.1 -Current Size (cm) - Depth 0.1 -Total Square Cm 0.88 -Photo Taken No -Epithelialization Small 1-33% -Tunneling No -Undermining/Tunneling No -Circular Undermining No -Exudate Amt Small -Exudate Type Serosanguineous -Wound Margin Flat & Intact -Granulation Amt Large (67-100%) -Granulation Quality [place] -Slough/Fibrin Yes -Necrosis Amt Small (1-33%) -Necrotic Tissue Type Adherent Slough -Texture (Milly-wound Skin Appearance) Scarring -Moisture (Milly-wound Skin Appearance Dry/Scaly ) -Color (Milly-wound Skin Appearance) Assessed Erythema -Temperature (Milly-wound Skin No Abnormality Appearance) (Pt Warm) -Tenderness on Palpation (Milly-wound No Skin Appearance) -Ulcer Cleansing Rinsed/ Irrigated with Saline -Foul Odor after Cleansing No -Anesthetic Used 5% Lidocaine Gel #6- RT SUPERIOR DELUNA CLUSTER -Combined with other wound No -Current Size (cm) - Length 0.9 -Current Size (cm) - Width 0.9 -Current Size (cm) - Depth 0.1 -Total Square Cm 0.81 -Photo Taken No -Epithelialization Small 1-33% -Tunneling No -Undermining/Tunneling No -Circular Undermining No -Exudate Amt Small -Exudate Type Serosanguineous -Wound Margin Flat & Intact -Granulation Amt Large (67-100%) -Granulation Quality [place] -Slough/Fibrin Yes -Necrosis Amt Small (1-33%) -Necrotic Tissue Type Adherent Slough -Texture (Milly-wound Skin Appearance) Assessed Scarring -Moisture (Milly-wound Skin Appearance Assessed ) Dry/Scaly -Color (Milly-wound Skin Appearance) Assessed Erythema -Temperature (Milly-wound Skin No Abnormality Appearance) (Pt Warm) -Tenderness on Palpation (Milly-wound No Skin Appearance) -Ulcer Cleansing Rinsed/ Irrigated with Saline -Foul Odor after Cleansing No -Anesthetic Used 5% Lidocaine Gel 5- LT LAT LEG CLUSTER -Combined with other wound No -Current Size (cm) - Length 6.7 -Current Size (cm) - Width 1.7 -Current Size (cm) - Depth 0.1 -Total Square Cm 11.39 -Photo Taken No -Epithelialization Small 1-33% -Tunneling No -Undermining/Tunneling No -Circular Undermining No -Exudate Amt Small -Exudate Type Serosanguineous -Wound Margin Flat & Intact -Granulation Amt Large (67-100%) -Granulation Quality [place] -Slough/Fibrin Yes -Necrosis Amt Small (1-33%) -Necrotic Tissue Type Adherent Slough -Texture (Milly-wound Skin Appearance) Scarring -Moisture (Milly-wound Skin Appearance Dry/Scaly ) -Color (Milly-wound Skin Appearance) Erythema -Temperature (Milly-wound Skin No Abnormality Appearance) (Pt Warm) -Tenderness on Palpation (Milly-wound No Skin Appearance) -Ulcer Cleansing Rinsed/ Irrigated with Saline -Foul Odor after Cleansing No -Anesthetic Used 5% Lidocaine Gel [Edema Assessment] -Lower Limb Edema Present Yes -Right Calf (cm) 46.7 -Right Ankle (cm) 25.1 -Left Calf (cm) 46.9 -Left Ankle (cm) 25.9 WC - Nurse 2 - General Ulcer CM Notes Start: 12/23/18 15:21 Freq: Status: Active Protocol: Activity Type Activity Date Activity User E-Sign Co-Sign Detail Recorded Client Recorded Date Recorded By Document 12/23/18 16:00 MW [id number] 12/23/18 16:09 MW 12/23/18 16:00 Wound Center Nurse 2 [Procedure/Treatment] #7- RT INFERIOR DELUNA CLUSTER -Time 16:01 -Correct Patient Yes -Correct Side, Site, Position Yes -Correct Procedure Yes -Procedure Performed Yes -Type of Procedure Debridement -Clinical Debridement Subcutaneous -Post Debridement Size (cm) - Length 1.0 -Post Debridement Size (cm) - Width 1.0 -Post Debridement Size (cm) - Depth 0.1 -Total Square Cm 1.00 -Wound/Ulcer Outcome Not Healed -Ulcer Cleansing Rinsed/ Irrigated with Saline -Foul Odor after Cleansing No -Bioengineered Tissue No -Bleeding Controlled with Pressure -Offloading No -Treatment Response Procedure Tolerated Well #6- RT SUPERIOR DELUNA CLUSTER -Time 16:01 -Correct Patient Yes -Correct Side, Site, Position Yes -Correct Procedure Yes -Procedure Performed Yes -Type of Procedure Debridement -Clinical Debridement Subcutaneous -Post Debridement Size (cm) - Length 1.0 -Post Debridement Size (cm) - Width 1.0 -Post Debridement Size (cm) - Depth 0.1 -Total Square Cm 1.00 -Wound/Ulcer Outcome Not Healed -Ulcer Cleansing Rinsed/ Irrigated with Saline -Foul Odor after Cleansing No -Bioengineered Tissue No -Bleeding Controlled with Pressure -Offloading No -Treatment Response Procedure Tolerated Well 5- LT LAT LEG CLUSTER -Time 16:01 -Correct Patient Yes -Correct Side, Site, Position Yes -Correct Procedure Yes -Procedure Performed Yes -Type of Procedure Debridement -Clinical Debridement Subcutaneous -Post Debridement Size (cm) - Length 7.1 -Post Debridement Size (cm) - Width 1.5 -Post Debridement Size (cm) - Depth 0.1 -Total Square Cm 10.65 -Wound/Ulcer Outcome Not Healed -Ulcer Cleansing Rinsed/ Irrigated with Saline -Foul Odor after Cleansing No -Bioengineered Tissue No -Bleeding Controlled with Pressure -Offloading No [See Physician Procedure note for Specifics] Pain Scale: 0-10 Numeric [Pain] -Is Patient Pain Free? Yes Psych/Mental Status: Normal Affect, Appropriate Debridement Note Post-Debridement Measurements/Treatment WC - Nurse 2 - General Ulcer CM Notes Start: 12/23/18 15:21 Freq: Status: Active Protocol: Activity Type Activity Date Activity User E-Sign Co-Sign Detail Recorded Client Recorded Date Recorded By Document 12/23/18 16:00 MW [id number] 12/23/18 16:09 MW 12/23/18 16:00 Wound Center Nurse 2 #7- RT INFERIOR DELUNA CLUSTER -Time 16:01 -Correct Patient Yes -Correct Side, Site, Position Yes -Correct Procedure Yes -Procedure Performed Yes -Type of Procedure Debridement -Clinical Debridement Subcutaneous -Post Debridement Size (cm) - Length 1.0 -Post Debridement Size (cm) - Width 1.0 -Post Debridement Size (cm) - Depth 0.1 -Total Square Cm 1.00 -Wound/Ulcer Outcome Not Healed -Ulcer Cleansing Rinsed/ Irrigated with Saline -Foul Odor after Cleansing No -Bioengineered Tissue No -Bleeding Controlled with Pressure -Offloading No -Treatment Response Procedure Tolerated Well #6- RT SUPERIOR DELUNA CLUSTER -Time 16:01 -Correct Patient Yes -Correct Side, Site, Position Yes -Correct Procedure Yes -Procedure Performed Yes -Type of Procedure Debridement -Clinical Debridement Subcutaneous -Post Debridement Size (cm) - Length 1.0 -Post Debridement Size (cm) - Width 1.0 -Post Debridement Size (cm) - Depth 0.1 -Total Square Cm 1.00 -Wound/Ulcer Outcome Not Healed -Ulcer Cleansing Rinsed/ Irrigated with Saline -Foul Odor after Cleansing No -Bioengineered Tissue No -Bleeding Controlled with Pressure -Offloading No -Treatment Response Procedure Tolerated Well 5- LT LAT LEG CLUSTER -Time 16:01 -Correct Patient Yes -Correct Side, Site, Position Yes -Correct Procedure Yes -Procedure Performed Yes -Type of Procedure Debridement -Clinical Debridement Subcutaneous -Post Debridement Size (cm) - Length 7.1 -Post Debridement Size (cm) - Width 1.5 -Post Debridement Size (cm) - Depth 0.1 -Total Square Cm 10.65 -Wound/Ulcer Outcome Not Healed -Ulcer Cleansing Rinsed/ Irrigated with Saline -Foul Odor after Cleansing No -Bioengineered Tissue No -Bleeding Controlled with Pressure -Offloading No Pain Scale: 0-10 Numeric Is Patient Pain Free? Yes Wound debrided: right inferior deluna cluster Laterality: Right Type of Debridement: Excisional debridement Anesthesia Used: 4% Lidocaine Solution Depth: Down to and including healthy tissue, in the subcutaneous layer Percentage of wound debrided: 100 Instrument Used: 5mm curette Tissue Removed: yellow slough, devitalized tissue Severity: Fat Layer Exposed Amount of bleeding with debridement: Mild Bleeding Controlled with: Compression and gauze Patient tolerated procedure well - Additional Wound Wound debrided: right superior deluna cluster Laterality: Right Type of Debridement: Excisional debridement Anesthesia Used: 4% Lidocaine Solution, 5% Lidocaine Gel Depth: Down to and including healthy tissue, in the subcutaneous layer Percentage of wound debrided: 100 Instrument Used: 5mm curette Tissue Removed: yellow slough, devitalized tissue Severity: Fat Layer Exposed Amount of bleeding with debridement: Mild Bleeding Controlled with: Compression and gauze Patient tolerated procedure: Patient tolerated procedure well - Additional Wound Wound debrided: left lateral leg cluster Laterality: Left Type of Debridement: Excisional debridement Anesthesia Used: 4% Lidocaine Solution, 5% Lidocaine Gel Depth: Down to and including healthy tissue, in the subcutaneous layer Percentage of wound debrided: 100 Instrument Used: 5mm curette Tissue Removed: yellow slough, devitalized tissue Severity: Fat Layer Exposed Amount of bleeding with debridement: Mild Bleeding Controlled with: Compression and gauze Patient tolerated procedure: Patient tolerated procedure well Assessment/Plan Active Problems Diabetes mellitus, insulin dependent (IDDM), uncontrolled (Chronic) Venous ulcers of both lower extremities (Chronic) Chronic venous hypertension w/ulcer and inflammation involv both sides (Chronic) Lymphedema of both lower extremities (Chronic) Assessment: nonhealing venous ulcers of b/l lower extremities. Edema b/l lower extremities. IDDM Plan: David's ulcers were evaluated and debrided today. He will continue to use Aquacel xtra tubigrips for compression. Referral to lymphedema clinic at [facility] made. Discussed decreased salt intake and weight loss as well as possibly having him do light duty which he states his job will not accomodate him. Vascular doesn't feel that he is a candidate for intervention at this time. Discussed importance of avoiding idle sitting and standing to treat his ulcers and encouraged to elevate his feet at or above the level of his heart as much as possible. Encouraged weight loss, tight glucose control as well. He will follow up in 1 week.
[2018-12-30 15:48] VITALS: BP 147/79; PULSE 78; RESP 16; TEMP 35.3; BMI 46.2
--- NOTE | 2018-12-30 18:50 | PCM.WC.PN ---
(1) Lymphedema of both lower extremities Status: Chronic Current Visit: Yes Code(s): I89.0 - Lymphedema, not elsewhere classified (2) Diabetes mellitus, insulin dependent (IDDM), uncontrolled Status: Chronic Current Visit: Yes Qualifiers: Glycemic state: with hyperglycemia Code(s): E10.65 - Type 1 diabetes mellitus with hyperglycemia (3) Venous ulcers of both lower extremities Status: Chronic Current Visit: Yes Code(s): I87.2 - Venous insufficiency (chronic) (peripheral); L97.919 - Non-pressure chronic ulcer of unspecified part of right lower leg with unspecified severity; L97.929 - Non-pressure chronic ulcer of unspecified part of left lower leg with unspecified severity (4) Chronic venous hypertension w/ulcer and inflammation involv both sides Status: Chronic Current Visit: Yes Code(s): I87.333 - Chronic venous hypertension (idiopathic) with ulcer and inflammation of bilateral lower extremity; L97.919 - Non-pressure chronic ulcer of unspecified part of right lower leg with unspecified severity; L97.929 - Non-pressure chronic ulcer of unspecified part of left lower leg with unspecified severity Type of Wound Date of Service: 12/30/18 Chief Complaint: nonhealing ulcers of lower extremities b/l, edema History of Wound: David is a 48 year old male that presents to the wound center for evaluation and treatment of nonhelaing ulcers of his lower legs that have been present for approximately 4 weeks. He states that his legs became swollen and then developed blisters which itched and broke open leaving sores. He has seen his PCP and they started him on Keflex 500 mg QID and he has been taking this for 4 weeks with minimal improvement. He has also been applying antibiotic ointment. He was also started on lasix which has helped his swelling somewhat. He works at the [employer] and he is on his feet all the time there. He thinks his last A1C was in August and was 8.0%. He underwent vascular testing which showed normal arterial circulation but incompetence of veins in his lower extremities bilaterally right > left. He saw Dr. Steinberg for evaluation for possible venous ablation but he did not recommend any treatment at this time. Progress of Wound: Kian is here for follow up of venous ulcers. They are improving and there have been no new ulcers this week. He has an appointment with Anna Pichardo OT on Wednesday for evaluation for lymphedema and any suggestions that she may have to treat his edema in the long run. He went back to tubigrip compression and has been elevating his legs except for during work hours where he does not have the ability to rest or elevate. - Physical Exam Vital Signs Temp Pulse Resp BP 95.5 F L 78 16 147/79 H 12/30/18 15:48 12/30/18 15:48 12/30/18 15:48 12/30/18 15:48 General: Alert, Oriented x3, Cooperative, No apparent distress HEENT: Atraumatic, Normocephalic Oral: Moist Mucosa Abdomen: Obese Extremities: Edema Skin: Ulcer/ Wound Wound Measurements and Assessment WC - Nurse 1 - General Ulcer Measurement Start: 12/23/18 15:21 Freq: Status: Active Protocol: Activity Type Activity Date Activity User E-Sign Co-Sign Detail Recorded Client Recorded Date Recorded By Document 12/30/18 15:48 AN [id number] 12/30/18 15:58 AN 12/30/18 15:48 Wound Center Nurse 1 [Ulcer Assessment] #7- RT INFERIOR DELUNA CLUSTER -Combined with other wound No -Current Size (cm) - Length 8.5 -Current Size (cm) - Width 0.5 -Current Size (cm) - Depth 0.1 -Total Square Cm 4.25 -Photo Taken No -Epithelialization Small 1-33% -Tunneling No -Undermining/Tunneling No -Circular Undermining No -Exudate Amt Small -Exudate Type Serosanguineous -Wound Margin Flat & Intact -Granulation Amt Medium (34-66%) -Granulation Quality Red -Slough/Fibrin Yes -Necrosis Amt Medium (34-66%) -Necrotic Tissue Type Adherent Slough -Texture (Milly-wound Skin Appearance) Scarring -Moisture (Milly-wound Skin Appearance Dry/Scaly ) -Color (Milly-wound Skin Appearance) Assessed -Temperature (Milly-wound Skin No Abnormality Appearance) (Pt Warm) -Tenderness on Palpation (Milly-wound No Skin Appearance) -Ulcer Cleansing Rinsed/ Irrigated with Saline -Foul Odor after Cleansing No -Anesthetic Used 5% Lidocaine Gel #6- RT SUPERIOR DELUNA CLUSTER -Combined with other wound No -Current Size (cm) - Length 14.5 -Current Size (cm) - Width 1.5 -Current Size (cm) - Depth 0.1 -Total Square Cm 21.75 -Photo Taken No -Epithelialization Small 1-33% -Tunneling No -Undermining/Tunneling No -Circular Undermining No -Exudate Amt Small -Exudate Type Serosanguineous -Wound Margin Flat & Intact -Granulation Amt Medium (34-66%) -Granulation Quality Red -Slough/Fibrin Yes -Necrosis Amt Medium (34-66%) -Necrotic Tissue Type Adherent Slough -Texture (Milly-wound Skin Appearance) Scarring -Moisture (Milly-wound Skin Appearance Dry/Scaly ) -Color (Milly-wound Skin Appearance) Assessed -Temperature (Milly-wound Skin No Abnormality Appearance) (Pt Warm) -Tenderness on Palpation (Milly-wound No Skin Appearance) -Ulcer Cleansing Rinsed/ Irrigated with Saline -Foul Odor after Cleansing No -Anesthetic Used 5% Lidocaine Gel 5- LT LAT LEG CLUSTER -Combined with other wound No -Current Size (cm) - Length 1.5 -Current Size (cm) - Width 1 -Current Size (cm) - Depth 0.1 -Total Square Cm 1.5 -Photo Taken No -Epithelialization Small 1-33% -Tunneling No -Undermining/Tunneling No -Circular Undermining No -Exudate Amt Small -Exudate Type Serous -Wound Margin Flat & Intact -Granulation Amt Medium (34-66%) -Granulation Quality Red -Slough/Fibrin Yes -Necrosis Amt Medium (34-66%) -Necrotic Tissue Type Adherent Slough -Texture (Milly-wound Skin Appearance) Scarring -Moisture (Milly-wound Skin Appearance Dry/Scaly ) -Color (Milly-wound Skin Appearance) Assessed -Temperature (Milly-wound Skin No Abnormality Appearance) (Pt Warm) -Tenderness on Palpation (Milly-wound No Skin Appearance) -Ulcer Cleansing Rinsed/ Irrigated with Saline -Foul Odor after Cleansing No -Anesthetic Used 5% Lidocaine Gel [Edema Assessment] -Lower Limb Edema Present Yes -Right Calf (cm) 49.5 -Right Ankle (cm) 24.5 -Left Calf (cm) 49 -Left Ankle (cm) 25 WC - Nurse 2 - General Ulcer CM Notes Start: 12/23/18 15:21 Freq: Status: Active Protocol: Activity Type Activity Date Activity User E-Sign Co-Sign Detail Recorded Client Recorded Date Recorded By Document 12/30/18 17:00 DV [id number] 12/30/18 17:09 DV 12/30/18 17:00 Wound Center Nurse 2 [Procedure/Treatment] #7- RT INFERIOR DELUNA CLUSTER -Time 17:04 -Correct Patient Yes -Correct Side, Site, Position Yes -Correct Procedure Yes -Procedure Performed Yes -Type of Procedure Debridement -Clinical Debridement Subcutaneous -Post Debridement Size (cm) - Length 8.5 -Post Debridement Size (cm) - Width 1.0 -Post Debridement Size (cm) - Depth 0.1 -Total Square Cm 8.50 -Wound/Ulcer Outcome Not Healed -Ulcer Cleansing Rinsed/ Irrigated with Saline -Foul Odor after Cleansing No -Bioengineered Tissue No -Bleeding Controlled with Pressure -Offloading No -Treatment Response Procedure Tolerated Well #6- RT SUPERIOR DELUNA CLUSTER -Time 17:05 -Correct Patient Yes -Correct Side, Site, Position Yes -Correct Procedure Yes -Procedure Performed Yes -Type of Procedure Debridement -Clinical Debridement Subcutaneous -Post Debridement Size (cm) - Length 0.8 -Post Debridement Size (cm) - Width 0.5 -Post Debridement Size (cm) - Depth 0.1 -Total Square Cm 0.40 -Wound/Ulcer Outcome Not Healed -Ulcer Cleansing Rinsed/ Irrigated with Saline -Foul Odor after Cleansing No -Bioengineered Tissue No -Bleeding Controlled with Pressure -Offloading No -Treatment Response Procedure Tolerated Well 5- LT LAT LEG CLUSTER -Time 17:05 -Correct Patient Yes -Correct Side, Site, Position Yes -Correct Procedure Yes -Procedure Performed Yes -Type of Procedure Debridement -Clinical Debridement Subcutaneous -Post Debridement Size (cm) - Length 2.0 -Post Debridement Size (cm) - Width 1.0 -Post Debridement Size (cm) - Depth 0.1 -Total Square Cm 2.00 -Wound/Ulcer Outcome Not Healed -Ulcer Cleansing Rinsed/ Irrigated with Saline -Foul Odor after Cleansing No -Bioengineered Tissue No -Bleeding Controlled with Pressure -Offloading No -Treatment Response Procedure Tolerated Well [See Physician Procedure note for Specifics] Pain Scale: 0-10 Numeric [Pain] -Is Patient Pain Free? Yes Psych/Mental Status: Normal Affect, Appropriate Debridement Note Post-Debridement Measurements/Treatment WC - Nurse 2 - General Ulcer CM Notes Start: 12/23/18 15:21 Freq: Status: Active Protocol: Activity Type Activity Date Activity User E-Sign Co-Sign Detail Recorded Client Recorded Date Recorded By Document 12/23/18 16:00 MW [id number] 12/23/18 16:09 MW Document 12/30/18 17:00 DV [id number] 12/30/18 17:09 DV 12/23/18 12/30/18 16:00 17:00 Wound Center Nurse 2 #7- RT INFERIOR DELUNA CLUSTER -Time 16: 17:04 -Correct Patient Yes Yes -Correct Side, Site, Position Yes Yes -Correct Procedure Yes Yes -Procedure Performed Yes Yes -Type of Procedure Debridement Debridement -Clinical Debridement Subcutaneous Subcutaneous -Post Debridement Size (cm) - Length 1.0 8.5 -Post Debridement Size (cm) - Width 1.0 1.0 -Post Debridement Size (cm) - Depth 0.1 0.1 -Total Square Cm 1.00 8.50 -Wound/Ulcer Outcome Not Healed Not Healed -Ulcer Cleansing Rinsed/ Rinsed/ Irrigated with Irrigated with Saline Saline -Foul Odor after Cleansing No No -Bioengineered Tissue No No -Bleeding Controlled with Pressure Pressure -Offloading No No -Treatment Response Procedure Procedure Tolerated Well Tolerated Well #6- RT SUPERIOR DELUNA CLUSTER -Time 16: 17:05 -Correct Patient Yes Yes -Correct Side, Site, Position Yes Yes -Correct Procedure Yes Yes -Procedure Performed Yes Yes -Type of Procedure Debridement Debridement -Clinical Debridement Subcutaneous Subcutaneous -Post Debridement Size (cm) - Length 1.0 0.8 -Post Debridement Size (cm) - Width 1.0 0.5 -Post Debridement Size (cm) - Depth 0.1 0.1 -Total Square Cm 1.00 0.40 -Wound/Ulcer Outcome Not Healed Not Healed -Ulcer Cleansing Rinsed/ Rinsed/ Irrigated with Irrigated with Saline Saline -Foul Odor after Cleansing No No -Bioengineered Tissue No No -Bleeding Controlled with Pressure Pressure -Offloading No No -Treatment Response Procedure Procedure Tolerated Well Tolerated Well 5- LT LAT LEG CLUSTER -Time 16: 17:05 -Correct Patient Yes Yes -Correct Side, Site, Position Yes Yes -Correct Procedure Yes Yes -Procedure Performed Yes Yes -Type of Procedure Debridement Debridement -Clinical Debridement Subcutaneous Subcutaneous -Post Debridement Size (cm) - Length 7.1 2.0 -Post Debridement Size (cm) - Width 1.5 1.0 -Post Debridement Size (cm) - Depth 0.1 0.1 -Total Square Cm 10.65 2.00 -Wound/Ulcer Outcome Not Healed Not Healed -Ulcer Cleansing Rinsed/ Rinsed/ Irrigated with Irrigated with Saline Saline -Foul Odor after Cleansing No No -Bioengineered Tissue No No -Bleeding Controlled with Pressure Pressure -Offloading No No -Treatment Response Procedure Tolerated Well Pain Scale: 0-10 Numeric Is Patient Pain Free? Yes Yes Wound debrided: right inferior deluna cluster Laterality: Right Type of Debridement: Excisional debridement Anesthesia Used: 4% Lidocaine Solution Depth: Down to and including healthy tissue, in the subcutaneous layer Percentage of wound debrided: 100 Instrument Used: 5mm curette Tissue Removed: yellow slough, devitalized tissue Severity: Fat Layer Exposed Amount of bleeding with debridement: Mild Bleeding Controlled with: Compression and gauze Patient tolerated procedure well - Additional Wound Wound debrided: right superior deluna cluster Laterality: Right Type of Debridement: Excisional debridement Anesthesia Used: 4% Lidocaine Solution, 5% Lidocaine Gel Depth: Down to and including healthy tissue, in the subcutaneous layer Percentage of wound debrided: 100 Instrument Used: 5mm curette Tissue Removed: yellow slough, devitalized tissue Severity: Fat Layer Exposed Amount of bleeding with debridement: Mild Bleeding Controlled with: Compression and gauze Patient tolerated procedure: Patient tolerated procedure well - Additional Wound Wound debrided: left lateral LE Laterality: Left Type of Debridement: Excisional debridement Anesthesia Used: 4% Lidocaine Solution Depth: Down to and including healthy tissue, in the subcutaneous layer Percentage of wound debrided: 100 Instrument Used: 5mm curette Tissue Removed: yellow slough, devitalized tissue Severity: Fat Layer Exposed Amount of bleeding with debridement: Mild Bleeding Controlled with: Compression and gauze Patient tolerated procedure: Patient tolerated procedure well Assessment/Plan Active Problems Diabetes mellitus, insulin dependent (IDDM), uncontrolled (Chronic) Venous ulcers of both lower extremities (Chronic) Chronic venous hypertension w/ulcer and inflammation involv both sides (Chronic) Lymphedema of both lower extremities (Chronic) Assessment: nonhealing venous ulcers of b/l lower extremities. Edema b/l lower extremities. IDDM Plan: David's ulcers were evaluated and debrided today. He will continue to use Aquacel xtra on his wounds and tubigrips for compression. 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 Discussed decreased salt intake and weight loss as well as possibly having him do light duty which he states his job will not accomodate him. Vascular doesn't feel that he is a candidate for intervention at this time. Discussed importance of avoiding idle sitting and standing to treat his ulcers and encouraged to elevate his feet at or above the level of his heart as much as possible. Encouraged weight loss, tight glucose control as well. He will follow up in 1 week.
--- NOTE | 2018-12-30 18:55 | PN.PCM_ITS ---
(1) Lymphedema of both lower extremities Status: Chronic Current Visit: Yes Code(s): I89.0 - Lymphedema, not elsewhere classified (2) Diabetes mellitus, insulin dependent (IDDM), uncontrolled Status: Chronic Current Visit: Yes Qualifiers: Glycemic state: with hyperglycemia Code(s): E10.65 - Type 1 diabetes mellitus with hyperglycemia (3) Venous ulcers of both lower extremities Status: Chronic Current Visit: Yes Code(s): I87.2 - Venous insufficiency (chronic) (peripheral); L97.919 - Non-pressure chronic ulcer of unspecified part of right lower leg with unspecified severity; L97.929 - Non-pressure chronic ulcer of unspecified part of left lower leg with unspecified severity (4) Chronic venous hypertension w/ulcer and inflammation involv both sides Status: Chronic Current Visit: Yes Code(s): I87.333 - Chronic venous hypertension (idiopathic) with ulcer and inflammation of bilateral lower extremity; L97.919 - Non-pressure chronic ulcer of unspecified part of right l ower leg with unspecified severity; L97.929 - Non-pressure chronic ulcer of unspecified part of left lower leg with unspecified severity Type of Wound Date of Service: 12/30/18 Chief Complaint: nonhealing ulcers of lower extremities b/l, edema History of Wound: David is a 48 year old male that presents to the wound center for evaluation and treatment of nonhelaing ulcers of his lower legs that have been present for approximately 4 weeks. He states that his legs became swollen and then developed blisters which itched and broke open leaving sores. He has seen his PCP and they started him on Keflex 500 mg QID and he has been taking this for 4 weeks with minimal improvement. He has also been applying antibiotic ointment. He was also started on lasix which has helped his swelling somewhat. 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 He thinks his last A1C was in August and was 8.0%. He underwent vascular testing which showed normal arterial circulation but incompetence of veins in his lower extremities bilaterally right > left. He saw Dr. Steinberg for evaluation for possible venous ablation but he did not recommend any treatment at this time. Progress of Wound: Kian is here for follow up of venous ulcers. They are im proving and there have been no new ulcers this week. He has an appointment with Anna Pichardo OT on Wednesday for evaluation for lymphedema and any suggestions that she may have to treat his edema in the long run. He went back to tubigrip compression and has been elevating his legs except for during work hours where he does not have the ability to rest or elevate. - Physical Exam Vital Signs Temp Pulse Resp BP 95.5 F L 78 16 147/79 H 12/30/18 15:48 12/30/18 15:48 12/30/18 15:48 12/30/18 15:48 General: Alert, Oriented x3, Cooperative, No apparent distress HEENT: Atraumatic, Normocephalic Oral: Moist Mucosa Abdomen: Obese Extremities: Edema Skin: Ulcer/ Wound Wound Measurements and Assessment WC - Nurse 1 - General Ulcer Measurement Start: 12/23/18 15:21 Freq: Status: Active Protocol: Activity Type Activity Date Activity User E-Sign Co-Sign Detail Recorded Client Recorded Date Recorded By Document 12/30/18 15:48 [id number] 12/30/18 15:58 AN 12/30/18 15:48 Wound Center Nurse 1 [Ulcer Assessment] #7- RT INFERIOR DELUNA CLUSTER -Combined with other wound No -Current Size (cm) - Length 8.5 -Current Size (cm) - Width 0.5 -Current Size (cm) - Depth 0.1 -Total Square Cm 4.25 -Photo Taken No -Epithelialization Small 1-33% -Tunneling No -Undermining/Tunneling No -Circular Undermining No -Exudate Amt Small -Exudate Type Serosanguineous -Wound Margin Flat & Intact -Granulation Amt Medium (34-66%) -Granulation Quality Red -Slough/Fibrin Yes -Necrosis Amt Medium (34-66%) -Necrotic Tissue Type Adherent Slough -Texture (Milly-wound Skin Appearance) Scarring -Moisture (Milly-wound Skin Appearance Dry/Scaly ) -Color (Milly-wound Skin Appearance) Assessed -Temperature (Milly-wound Skin No Abnormality Appearance) (Pt Warm) -Tenderness on Palpation (Milly-wound No Skin Appearance) -Ulcer Cleansing Rinsed/ Irrigated with Saline -Foul Odor after Cleansing No -Anesthetic Used 5% Lidocaine Gel #6- RT SUPERIOR DELUNA CLUSTER -Combined with other wound No -Current Size (cm) - Length 14.5 -Current Size (cm) - Width 1.5 -Current Size (cm) - Depth 0.1 -Total Square Cm 21.75 -Photo Taken No -Epithelialization Small 1-33% -Tunneling No -Undermining/Tunneling No -Circular Undermining No -Exudate Amt Small -Exudate Type Serosanguineous -Wound Margin Flat & Intact -Granulation Amt Medium (34-66%) -Granulation Quality Red -Slough/Fibrin Yes -Necrosis Amt Medium (34-66%) -Necrotic Tissue Type Adherent Slough -Texture (Milly-wound Skin Appearance) Scarring -Moisture (Milly-wound Skin Appearance Dry/Scaly ) -Color (Milly-wound Skin Appearance) Assessed -Temperature (Milly-wound Skin No Abnormality Appearance) (Pt Warm) -Tenderness on Palpation (Milly-wound No Skin Appearance) -Ulcer Cleansing Rinsed/ Irrigated with Saline -Foul Odor after Cleansing No -Anesthetic Used 5% Lidocaine Gel 5- LT LAT LEG CLUSTER -Combined with other wound No -Current Size (cm) - Length 1.5 -Current Size (cm) - Width 1 -Current Size (cm) - Depth 0.1 -Total Square Cm 1.5 -Photo Taken No -Epithelialization Small 1-33% -Tunneling No -Undermining/Tunneling No -Circular Undermining No -Exudate Amt Small -Exudate Type Serous -Wound Margin Flat & Intact -Granulation Amt Medium (34-66%) -Granulation Quality Red -Slough/Fibrin Yes -Necrosis Amt Medium (34-66%) -Necrotic Tissue Type Adherent Slough -Texture (Milly-wound Skin Appearance) Scarring -Moisture (Milly-wound Skin Appearance Dry/Scaly ) -Color (Milly-wound Skin Appearance) Assessed -Temperature (Milly-wound Skin No Abnormality Appearance) (Pt Warm) -Tenderness on Palpation (Milly-wound No Skin Appearance) -Ulcer Cleansing Rinsed/ Irrigated with Saline -Foul Odor after Cleansing No -Anesthetic Used 5% Lidocaine Gel [Edema Assessment] -Lower Limb Edema Present Yes -Right Calf (cm) 49.5 -Right Ankle (cm) 24.5 -Left Calf (cm) 49 -Left Ankle (cm) 25 WC - Nurse 2 - General Ulcer CM Notes Start: 12/23/18 15:21 Freq: Status: Active Protocol: Activity Type Activity Date Activity User E-Sign Co-Sign Detail Recorded Client Recorded Date Recorded By Document 12/30/18 17:00 DV [id number] 12/30/18 17:09 DV 12/30/18 17:00 Wound Center Nurse 2 [Procedure/Treatment] #7- RT INFERIOR DELUNA CLUSTER -Time 17:04 -Correct Patient Yes -Correct Side, Site, Position Yes -Correct Procedure Yes -Procedure Performed Yes -Type of Procedure Debridement -Clinical Debridement Subcutaneous -Post Debridement Size (cm) - Length 8.5 -Post Debridement Size (cm) - Width 1.0 -Post Debridement Size (cm) - Depth 0.1 -Total Square Cm 8.50 -Wound/Ulcer Outcome Not Healed -Ulcer Cleansing Rinsed/ Irrigated with Saline -Foul Odor after Cleansing No -Bioengineered Tissue No -Bleeding Controlled with Pressure -Offloading No -Treatment Response Procedure Tolerated Well #6- RT SUPERIOR DELUNA CLUSTER -Time 17:05 -Correct Patient Yes -Correct Side, Site, Position Yes -Correct Procedure Yes -Procedure Performed Yes -Type of Procedure Debridement -Clinical Debridement Subcutaneous -Post Debridement Size (cm) - Length 0.8 -Post Debridement Size (cm) - Width 0.5 -Post Debridement Size (cm) - Depth 0.1 -Total Square Cm 0.40 -Wound/Ulcer Outcome Not Healed -Ulcer Cleansing Rinsed/ Irrigated with Saline -Foul Odor after Cleansing No -Bioengineered Tissue No -Bleeding Controlled with Pressure -Offloading No -Treatment Response Procedure Tolerated Well 5- LT LAT LEG CLUSTER -Time 17:05 -Correct Patient Yes -Correct Side, Site, Position Yes -Correct Procedure Yes -Procedure Performed Yes -Type of Procedure Debridement -Clinical Debridement Subcutaneous -Post Debridement Size (cm) - Length 2.0 -Post Debridement Size (cm) - Width 1.0 -Post Debridement Size (cm) - Depth 0.1 -Total Square Cm 2.00 -Wound/Ulcer Outcome Not Healed -Ulcer Cleansing Rinsed/ Irrigated with Saline -Foul Odor after Cleansing No -Bioengineered Tissue No -Bleeding Controlled with Pressure -Offloading No -Treatment Response Procedure Tolerated Well [See Physician Procedure note for Specifics] Pain Scale: 0-10 Numeric [Pain] -Is Patient Pain Free? Yes Psych/Mental Status: Normal Affect, Appropriate Debridement Note Post-Debridement Measurements/Treatment WC - Nurse 2 - General Ulcer CM Notes Start: 12/23/18 15:21 Freq: Status: Active Protocol: Activity Type Activity Date Activity User E-Sign Co-Sign Detail Recorded Client Recorded Date Recorded By Document 12/23/18 16:00 MW [id number] 12/23/18 16:09 MW Document 12/30/18 17:00 DV [id number] 12/30/18 17:09 DV 12/23/18 12/30/18 16:00 17:00 Wound Center Nurse 2 #7- RT INFERIOR DELUNA CLUSTER -Time 16: 17:04 -Correct Patient Yes Yes -Correct Side, Site, Position Yes Yes -Correct Procedure Yes Yes -Procedure Performed Yes Yes -Type of Procedure Debridement Debridement -Clinical Debridement Subcutaneous Subcutaneous -Post Debridement Size (cm) - Length 1.0 8.5 -Post Debridement Size (cm) - Width 1.0 1.0 -Post Debridement Size (cm) - Depth 0.1 0.1 -Total Square Cm 1.00 8.50 -Wound/Ulcer Outcome Not Healed Not Healed -Ulcer Cleansing Rinsed/ Rinsed/ Irrigated with Irrigated with Saline Saline -Foul Odor after Cleansing No No -Bioengineered Tissue No No -Bleeding Controlled with Pressure Pressure -Offloading No No -Treatment Response Procedure Procedure Tolerated Well Tolerated Well #6- RT SUPERIOR DELUNA CLUSTER -Time 16: 17:05 -Correct Patient Yes Yes -Correct Side, Site, Position Yes Yes -Correct Procedure Yes Yes -Procedure Performed Yes Yes -Type of Procedure Debridement Debridement -Clinical Debridement Subcutaneous Subcutaneous -Post Debridement Size (cm) - Length 1.0 0.8 -Post Debridement Size (cm) - Width 1.0 0.5 -Post Debridement Size (cm) - Depth 0.1 0.1 -Total Square Cm 1.00 0.40 -Wound/Ulcer Outcome Not Healed Not Healed -Ulcer Cleansing Rinsed/ Rinsed/ Irrigated with Irrigated with Saline Saline -Foul Odor after Cleansing No No -Bioengineered Tissue No No -Bleeding Controlled with Pressure Pressure -Offloading No No -Treatment Response Procedure Procedure Tolerated Well Tolerated Well 5- LT LAT LEG CLUSTER -Time 16: 17:05 -Correct Patient Yes Yes -Correct Side, Site, Position Yes Yes -Correct Procedure Yes Yes -Procedure Performed Yes Yes -Type of Procedure Debridement Debridement -Clinical Debridement Subcutaneous Subcutaneous -Post Debridement Size (cm) - Length 7.1 2.0 -Post Debridement Size (cm) - Width 1.5 1.0 -Post Debridement Size (cm) - Depth 0.1 0.1 -Total Square Cm 10.65 2.00 -Wound/Ulcer Outcome Not Healed Not Healed -Ulcer Cleansing Rinsed/ Rinsed/ Irrigated with Irrigated with Saline Saline -Foul Odor after Cleansing No No -Bioengineered Tissue No No -Bleeding Controlled with Pressure Pressure -Offloading No No -Treatment Response Procedure Tolerated Well Pain Scale: 0-10 Numeric Is Patient Pain Free? Yes Yes Wound debrided: right inferior deluna cluster Laterality: Right Type of Debridement: Excisional debridement Anesthesia Used: 4% Lidocaine Solution Depth: Down to and including healthy tissue, in the subcutaneous layer Percentage of wound debrided: 100 Instrument Used: 5mm curette Tissue Removed: yellow slough, devitalized tissue Severity: Fat Layer Exposed Amount of bleeding with debridement: Mild Bleeding Controlled with: Compression and gauze Patient tolerated procedure well - Additional Wound Wound debrided: right superior deluna cluster Laterality: Right Type of Debridement: Excisional debridement Anesthesia Used: 4% Lidocaine Solution, 5% Lidocaine Gel Depth: Down to and including healthy tissue, in the subcutaneous layer Percentage of wound debrided: 100 Instrument Used: 5mm curette Tissue Removed: yellow slough, devitalized tissue Severity: Fat Layer Exposed Amount of bleeding with debridement: Mild Bleeding Controlled with: Compression and gauze Patient tolerated procedure: Patient tolerated procedure well - Additional Wound Wound debrided: left lateral LE Laterality: Left Type of Debridement: Excisional debridement Anesthesia Used: 4% Lidocaine Solution Depth: Down to and including healthy tissue, in the subcutaneous layer Percentage of wound debrided: 100 Instrument Used: 5mm curette Tissue Removed: yellow slough, devitalized tissue Severity: Fat Layer Exposed Amount of bleeding with debridement: Mild Bleeding Controlled with: Compression and gauze Patient tolerated procedure: Patient tolerated procedure well Assessment/Plan Active Problems Diabetes mellitus, insulin dependent (IDDM), uncontrolled (Chronic) Venous ulcers of both lower extremities (Chronic) Chronic venous hypertension w/ulcer and inflammation involv both sides (Chronic) Lymphedema of both lower extremities (Chronic) Assessment: nonhealing venous ulcers of b/l lower extremities. Edema b/l lower extremities. IDDM Plan: David's ulcers were evaluated and debrided today. He will continue to use Aquacel xtra on his wounds and tubigrips for compression. Referral to lymphedema clinic at [facility] made for suggestions for [place] [facility] solution to his chronic edema to prevent ongoing development of ulcers. Discussed decreased salt intake and weight loss as well as possibly having him do light duty which he states his job will not accomodate him. Vascular doesn't feel that he is a candidate for intervention at this time. Discussed importance of avoiding idle sitting and standing to treat his ulcers and encouraged to elevate his feet at or above the level of his heart as much as possible. Encouraged weight loss, tight glucose control as well. He will follow up in 1 week.
[2019-01-06 16:05] VITALS: BP 156/72; PULSE 76; RESP 18; TEMP 36.4; BMI 46.2
--- NOTE | 2019-01-06 17:47 | PCM.WC.PN ---
(1) Lymphedema of both lower extremities Status: Chronic Current Visit: Yes Code(s): I89.0 - Lymphedema, not elsewhere classified (2) Diabetes mellitus, insulin dependent (IDDM), uncontrolled Status: Chronic Current Visit: Yes Qualifiers: Glycemic state: with hyperglycemia Code(s): E10.65 - Type 1 diabetes mellitus with hyperglycemia (3) Venous ulcers of both lower extremities Status: Chronic Current Visit: Yes Code(s): I87.2 - Venous insufficiency (chronic) (peripheral); L97.919 - Non-pressure chronic ulcer of unspecified part of right lower leg with unspecified severity; L97.929 - Non-pressure chronic ulcer of unspecified part of left lower leg with unspecified severity (4) Chronic venous hypertension w/ulcer and inflammation involv both sides Status: Chronic Current Visit: Yes Code(s): I87.333 - Chronic venous hypertension (idiopathic) with ulcer and inflammation of bilateral lower extremity; L97.919 - Non-pressure chronic ulcer of unspecified part of right lower leg with unspecified severity; L97.929 - Non-pressure chronic ulcer of unspecified part of left lower leg with unspecified severity Type of Wound Date of Service: 01/06/19 Chief Complaint: nonhealing ulcers of lower extremities b/l, edema History of Wound: David is a 48 year old male that presents to the wound center for evaluation and treatment of nonhelaing ulcers of his lower legs that have been present for approximately 4 weeks. He states that his legs became swollen and then developed blisters which itched and broke open leaving sores. He has seen his PCP and they started him on Keflex 500 mg QID and he has been taking this for 4 weeks with minimal improvement. He has also been applying antibiotic ointment. He was also started on lasix which has helped his swelling somewhat. He works at the [employer] and he is on his feet all the time there. He thinks his last A1C was in August and was 8.0%. He underwent vascular testing which showed normal arterial circulation but incompetence of veins in his lower extremities bilaterally right > left. He saw Dr. Steinberg for evaluation for possible venous ablation but he did not recommend any treatment at this time. Progress of Wound: Kian is here for follow up of venous ulcers. They are improving and there is a new ulcer of his right deluna this week after striking it on something at work. He saw Anna Pichardo OT on Wednesday for evaluation for lymphedema and any suggestions that she may have to treat his edema in the long run. He is using tubigrip compression and has been elevating his legs except for during work hours where he does not have the ability to rest or elevate. She is working with him to try and get compression stockings that he will tolerate and has shown him exercises which he can do as well to help control his edema. - Physical Exam Vital Signs Temp Pulse Resp BP 97.5 F L 76 18 156/72 H 01/06/19 16:05 01/06/19 16:05 01/06/19 16:05 01/06/19 16:05 General: Alert, Oriented x3, Cooperative, No apparent distress HEENT: Atraumatic, Normocephalic Oral: Moist Mucosa Abdomen: Obese Extremities: Edema Skin: Ulcer/ Wound Wound Measurements and Assessment WC - Nurse 1 - General Ulcer Measurement Start: 12/23/18 15:21 Freq: Status: Active Protocol: Activity Type Activity Date Activity User E-Sign Co-Sign Detail Recorded Client Recorded Date Recorded By Document 01/06/19 16:05 [place] [id number] 01/06/19 16:11 MT 01/06/19 16:05 Wound Center Nurse 1 [Ulcer Assessment] #7- RT INFERIOR DELUNA CLUSTER -Current Size (cm) - Length 5.9 -Current Size (cm) - Width 3 -Current Size (cm) - Depth 0.1 -Total Square Cm 17.7 -Exudate Amt Small -Exudate Type Serosanguineous -Wound Margin Flat & Intact -Granulation Amt Medium (34-66%) -Granulation Quality Pale Cleora -Necrosis Amt Medium (34-66%) -Necrotic Tissue Type Adherent Slough -Texture (Milly-wound Skin Appearance) Assessed Localized Edema Rash -Moisture (Milly-wound Skin Appearance Assessed ) -Color (Milly-wound Skin Appearance) Assessed -Temperature (Milly-wound Skin No Abnormality Appearance) (Pt Warm) -Tenderness on Palpation (Milly-wound No Skin Appearance) -Ulcer Cleansing Rinsed/ Irrigated with Saline -Foul Odor after Cleansing No -Anesthetic Used 4% Lidocaine Solution #6- RT SUPERIOR DELUNA CLUSTER -Current Size (cm) - Length 0.1 -Current Size (cm) - Width 0.1 -Current Size (cm) - Depth 0.1 -Total Square Cm 0.01 -Epithelialization Large 67-100% 5- LT LAT LEG CLUSTER -Combined with other wound No -Current Size (cm) - Length 7.3 -Current Size (cm) - Width 1.0 -Current Size (cm) - Depth 0.1 -Total Square Cm 7.30 -Tunneling No -Undermining/Tunneling No -Circular Undermining No -Exudate Amt Small -Exudate Type Serosanguineous -Wound Margin Flat & Intact -Granulation Amt Large (67-100%) -Granulation Quality Pale Cleora -Slough/Fibrin No -Texture (Milly-wound Skin Appearance) Assessed Localized Edema Scarring -Moisture (Milly-wound Skin Appearance Assessed ) Maceration -Color (Milly-wound Skin Appearance) Assessed Hemosiderin Staining -Temperature (Milly-wound Skin No Abnormality Appearance) (Pt Warm) -Tenderness on Palpation (Milly-wound No Skin Appearance) -Ulcer Cleansing Rinsed/ Irrigated with Saline -Foul Odor after Cleansing No -Anesthetic Used 4% Lidocaine Solution [Edema Assessment] -Right Calf (cm) 48.2 -Right Ankle (cm) 24.6 -Left Calf (cm) 48.0 -Left Ankle (cm) 25.0 WC - Nurse 2 - General Ulcer CM Notes Start: 12/23/18 15:21 Freq: Status: Active Protocol: Activity Type Activity Date Activity User E-Sign Co-Sign Detail Recorded Client Recorded Date Recorded By Document 01/06/19 16:56 DV [id number] 01/06/19 17:04 DV 01/06/19 16:56 Wound Center Nurse 2 [Procedure/Treatment] #7- RT INFERIOR DELUNA CLUSTER -Time 16:58 -Correct Patient Yes -Correct Side, Site, Position Yes -Correct Procedure Yes -Procedure Performed Yes -Type of Procedure Debridement -Clinical Debridement Subcutaneous -Post Debridement Size (cm) - Length 1.9 -Post Debridement Size (cm) - Width 0.9 -Post Debridement Size (cm) - Depth 0.5 -Total Square Cm 0.1 -Wound/Ulcer Outcome Not Healed -Ulcer Cleansing Rinsed/ Irrigated with Saline -Foul Odor after Cleansing No -Bioengineered Tissue No -Bleeding Controlled with Pressure -Offloading No -Treatment Response Procedure Tolerated Well #6- RT SUPERIOR DELUNA CLUSTER -Time 17:00 -Correct Patient Yes -Correct Side, Site, Position Yes -Procedure Performed No -Post Debridement Size (cm) - Length 0 -Post Debridement Size (cm) - Width 0 -Post Debridement Size (cm) - Depth 0 -Total Square Cm 0 -Wound/Ulcer Outcome Healed- Epithelialized 5- LT LAT LEG CLUSTER -Time 16:57 -Correct Patient Yes -Correct Side, Site, Position Yes -Correct Procedure Yes -Procedure Performed Yes -Type of Procedure Debridement -Clinical Debridement Subcutaneous -Post Debridement Size (cm) - Length 0.9 -Post Debridement Size (cm) - Width 0.5 -Post Debridement Size (cm) - Depth 0.1 -Total Square Cm 0.45 -Wound/Ulcer Outcome Not Healed [See Physician Procedure note for Specifics] Psych/Mental Status: Normal Affect, Appropriate Debridement Note Post-Debridement Measurements/Treatment WC - Nurse 2 - General Ulcer CM Notes Start: 12/23/18 15:21 Freq: Status: Active Protocol: Activity Type Activity Date Activity User E-Sign Co-Sign Detail Recorded Client Recorded Date Recorded By Document 12/23/18 16:00 MW [id number] 12/23/18 16:09 MW Document 12/30/18 17:00 DV [id number] 12/30/18 17:09 DV Document 01/06/19 16:56 DV [id number] 01/06/19 17:04 DV 12/23/18 12/30/18 01/06/19 16:00 17:00 16:56 Wound Center Nurse 2 #7- RT INFERIOR DELUNA CLUSTER -Time 16:01 17:04 16:58 -Correct Patient Yes Yes Yes -Correct Side, Site, Position Yes Yes Yes -Correct Procedure Yes Yes Yes -Procedure Performed Yes Yes Yes -Type of Procedure Debridement Debridement Debridement -Clinical Debridement Subcutaneous Subcutaneous Subcutaneous -Post Debridement Size (cm) - Length 1.0 8.5 1.9 -Post Debridement Size (cm) - Width 1.0 1.0 0.9 -Post Debridement Size (cm) - Depth 0.1 0.1 0.5 -Total Square Cm 1.00 8.50 0.1 -Wound/Ulcer Outcome Not Healed Not Healed Not Healed -Ulcer Cleansing Rinsed/ Rinsed/ Rinsed/ Irrigated with Irrigated with Irrigated with Saline Saline Saline -Foul Odor after Cleansing No No No -Bioengineered Tissue No No No -Bleeding Controlled with Pressure Pressure Pressure -Offloading No No No -Treatment Response Procedure Procedure Procedure Tolerated Well Tolerated Well Tolerated Well #6- RT SUPERIOR DELUNA CLUSTER -Time 16: 17: 17:00 -Correct Patient Yes Yes Yes -Correct Side, Site, Position Yes Yes Yes -Correct Procedure Yes Yes -Procedure Performed Yes Yes No -Type of Procedure Debridement Debridement -Clinical Debridement Subcutaneous Subcutaneous -Post Debridement Size (cm) - Length 1.0 0.8 0 -Post Debridement Size (cm) - Width 1.0 0.5 0 -Post Debridement Size (cm) - Depth 0.1 0.1 0 -Total Square Cm 1.00 0.40 0 -Wound/Ulcer Outcome Not Healed Not Healed Healed- Epithelialized -Ulcer Cleansing Rinsed/ Rinsed/ Irrigated with Irrigated with Saline Saline -Foul Odor after Cleansing No No -Bioengineered Tissue No No -Bleeding Controlled with Pressure Pressure -Offloading No No -Treatment Response Procedure Procedure Tolerated Well Tolerated Well 5- LT LAT LEG CLUSTER -Time 16: 17:05 16:57 -Correct Patient Yes Yes Yes -Correct Side, Site, Position Yes Yes Yes -Correct Procedure Yes Yes Yes -Procedure Performed Yes Yes Yes -Type of Procedure Debridement Debridement Debridement -Clinical Debridement Subcutaneous Subcutaneous Subcutaneous -Post Debridement Size (cm) - Length 7.1 2.0 0.9 -Post Debridement Size (cm) - Width 1.5 1.0 0.5 -Post Debridement Size (cm) - Depth 0.1 0.1 0.1 -Total Square Cm 10.65 2.00 0.45 -Wound/Ulcer Outcome Not Healed Not Healed Not Healed -Ulcer Cleansing Rinsed/ Rinsed/ Irrigated with Irrigated with Saline Saline -Foul Odor after Cleansing No No -Bioengineered Tissue No No -Bleeding Controlled with Pressure Pressure -Offloading No No -Treatment Response Procedure Tolerated Well Pain Scale: 0-10 Numeric Is Patient Pain Free? Yes Yes Wound debrided: right inferior deluna cluster Laterality: Right Type of Debridement: Excisional debridement Anesthesia Used: 4% Lidocaine Solution Depth: Down to and including healthy tissue, in the subcutaneous layer Percentage of wound debrided: 100 Instrument Used: 5mm curette Tissue Removed: yellow slough, devitalized tissue Severity: Fat Layer Exposed Amount of bleeding with debridement: Mild Bleeding Controlled with: Compression and gauze Patient tolerated procedure well - Additional Wound Wound debrided: right superior deluna cluster Laterality: Right Type of Debridement: Excisional debridement Anesthesia Used: 4% Lidocaine Solution Depth: Down to and including healthy tissue, in the subcutaneous layer Percentage of wound debrided: 100 Instrument Used: 5mm curette Tissue Removed: yellow slough, devitalized tissue Severity: Fat Layer Exposed Amount of bleeding with debridement: Mild Bleeding Controlled with: Compression and gauze Patient tolerated procedure: Patient tolerated procedure well - Additional Wound Wound debrided: left lateral leg cluster Laterality: Left Type of Debridement: Excisional debridement Anesthesia Used: 4% Lidocaine Solution Depth: Down to and including healthy tissue, in the subcutaneous layer Percentage of wound debrided: 100 Instrument Used: 5mm curette Tissue Removed: yellow slough, devitalized tissue Severity: Fat Layer Exposed Amount of bleeding with debridement: Mild Bleeding Controlled with: Compression and gauze Patient tolerated procedure: Patient tolerated procedure well Assessment/Plan Active Problems Diabetes mellitus, insulin dependent (IDDM), uncontrolled (Chronic) Venous ulcers of both lower extremities (Chronic) Chronic venous hypertension w/ulcer and inflammation involv both sides (Chronic) Lymphedema of both lower extremities (Chronic) Assessment: nonhealing venous ulcers of b/l lower extremities. Edema b/l lower extremities. IDDM Plan: David's ulcers were evaluated and debrided today. He will continue to use Aquacel xtra on his wounds and tubigrips for compression. Referral to lymphedema clinic at [facility] made for suggestions for penitentiary solution to his chronic edema to prevent ongoing development of ulcers and he has been seen by Anna Pichardo OT and is being instructed on exercises to do to improve lymphedema control and she is working with him to find compression that he can tolerate. Discussed decreased salt intake and weight loss as well as possibly having him do light duty which he states his job will not accomodate him. Vascular doesn't feel that he is a candidate for intervention at this time. Discussed importance of avoiding idle sitting and standing to treat his ulcers and encouraged to elevate his feet at or above the level of his heart as much as possible. Encouraged weight loss, tight glucose control as well. He will follow up in 1 week.
--- NOTE | 2019-01-06 17:51 | PN.PCM_ITS ---
(1) Lymphedema of both lower extremities Status: Chronic Current Visit: Yes Code(s): I89.0 - Lymphedema, not elsewhere classified (2) Diabetes mellitus, insulin dependent (IDDM), uncontrolled Status: Chronic Current Visit: Yes Qualifiers: Glycemic state: with hyperglycemia Code(s): E10.65 - Type 1 diabetes mellitus with hyperglycemia (3) Venous ulcers of both lower extremities Status: Chronic Current Visit: Yes Code(s): I87.2 - Venous insufficiency (chronic) (peripheral); L97.919 - Non-pressure chronic ulcer of unspecified part of right lower leg with unspecified severity; L97.929 - Non-pressure chronic ulcer of unspecified part of left lower leg with unspecified severity (4) Chronic venous hypertension w/ulcer and inflammation involv both sides Status: Chronic Current Visit: Yes Code(s): I87.333 - Chronic venous hypertension (idiopathic) with ulcer and inflammation of bilateral lower extremity; L97.919 - Non-pressure chronic ulcer of unspecified part of right l ower leg with unspecified severity; L97.929 - Non-pressure chronic ulcer of unspecified part of left lower leg with unspecified severity Type of Wound Date of Service: 01/06/19 Chief Complaint: nonhealing ulcers of lower extremities b/l, edema History of Wound: David is a 48 year old male that presents to the wound center for evaluation and treatment of nonhelaing ulcers of his lower legs that have been present for approximately 4 weeks. He states that his legs became swollen and then developed blisters which itched and broke open leaving sores. He has seen his PCP and they started him on Keflex 500 mg QID and he has been taking this for 4 weeks with minimal improvement. He has also been applying antibiotic ointment. He was also started on lasix which has helped his swelling somewhat. He works at the [employer] and he is on his feet all the time there. He thinks his last A1C was in August and was 8.0%. He underwent vascular testing which showed normal arterial circulation but incompetence of veins in his lower extremities bilaterally right > left. He saw Dr. Steinberg for evaluation for possible venous ablation but he did not recommend any treatment at this time. Progress of Wound: Kian is here for follow up of venous ulcers. They are im proving and there is a new ulcer of his right deluna this week after striking it on something at work. He saw Anna Pichardo OT on Wednesday for evaluation for lymphedema and any suggestions that she may have to treat his edema in the long run. He is using tubigrip compression and has been elevating his legs except for during work hours where he does not have the ability to rest or elevate. She is working with him to try and get compression stockings that he will tolerate and has shown him exercises which he can do as well to help control his edema. - Physical Exam Vital Signs Temp Pulse Resp BP 97.5 F L 76 18 156/72 H 01/06/19 16:05 01/06/19 16:05 01/06/19 16:05 01/06/19 16:05 General: Alert, Oriented x3, Cooperative, No apparent distress HEENT: Atraumatic, Normocephalic Oral: Moist Mucosa Abdomen: Obese Extremities: Edema Skin: Ulcer/ Wound Wound Measurements and Assessment WC - Nurse 1 - General Ulcer Measurement Start: 12/23/18 15:21 Freq: Status: Active Protocol: Activity Type Activity Date Activity User E-Sign Co-Sign Detail Recorded Client Recorded Date Recorded By Document 01/06/19 16:05 [place] [id number] 01/06/19 16:11 [place] 01/06/19 16:05 Wound Center Nurse 1 [Ulcer Assessment] #7- RT INFERIOR DELUNA CLUSTER -Current Size (cm) - Length 5.9 -Current Size (cm) - Width 3 -Current Size (cm) - Depth 0.1 -Total Square Cm 17.7 -Exudate Amt Small -Exudate Type Serosanguineous -Wound Margin Flat & Intact -Granulation Amt Medium (34-66%) -Granulation Quality Pale Charlo -Necrosis Amt Medium (34-66%) -Necrotic Tissue Type Adherent Slough -Texture (Milly-wound Skin Appearance) Assessed Localized Edema Rash -Moisture (Milly-wound Skin Appearance Assessed ) -Color (Milly-wound Skin Appearance) Assessed -Temperature (Milly-wound Skin No Abnormality Appearance) (Pt Warm) -Tenderness on Palpation (Milly-wound No Skin Appearance) -Ulcer Cleansing Rinsed/ Irrigated with Saline -Foul Odor after Cleansing No -Anesthetic Used 4% Lidocaine Solution #6- RT SUPERIOR DELUNA CLUSTER -Current Size (cm) - Length 0.1 -Current Size (cm) - Width 0.1 -Current Size (cm) - Depth 0.1 -Total Square Cm 0.01 -Epithelialization Large 67-100% 5- LT LAT LEG CLUSTER -Combined with other wound No -Current Size (cm) - Length 7.3 -Current Size (cm) - Width 1.0 -Current Size (cm) - Depth 0.1 -Total Square Cm 7.30 -Tunneling No -Undermining/Tunneling No -Circular Undermining No -Exudate Amt Small -Exudate Type Serosanguineous -Wound Margin Flat & Intact -Granulation Amt Large (67-100%) -Granulation Quality Pale Charlo -Slough/Fibrin No -Texture (Milly-wound Skin Appearance) Assessed Localized Edema Scarring -Moisture (Milly-wound Skin Appearance Assessed ) Maceration -Color (Milly-wound Skin Appearance) Assessed Hemosiderin Staining -Temperature (Milly-wound Skin No Abnormality Appearance) (Pt Warm) -Tenderness on Palpation (Milly-wound No Skin Appearance) -Ulcer Cleansing Rinsed/ Irrigated with Saline -Foul Odor after Cleansing No -Anesthetic Used 4% Lidocaine Solution [Edema Assessment] -Right Calf (cm) 48.2 -Right Ankle (cm) 24.6 -Left Calf (cm) 48.0 -Left Ankle (cm) 25.0 WC - Nurse 2 - General Ulcer CM Notes Start: 12/23/18 15:21 Freq: Status: Active Protocol: Activity Type Activity Date Activity User E-Sign Co-Sign Detail Recorded Client Recorded Date Recorded By Document 01/06/19 16:56 DV [id number] 01/06/19 17:04 DV 01/06/19 16:56 Wound Center Nurse 2 [Procedure/Treatment] #7- RT INFERIOR DELUNA CLUSTER -Time 16:58 -Correct Patient Yes -Correct Side, Site, Position Yes -Correct Procedure Yes -Procedure Performed Yes -Type of Procedure Debridement -Clinical Debridement Subcutaneous -Post Debridement Size (cm) - Length 1.9 -Post Debridement Size (cm) - Width 0.9 -Post Debridement Size (cm) - Depth 0.5 -Total Square Cm 0.1 -Wound/Ulcer Outcome Not Healed -Ulcer Cleansing Rinsed/ Irrigated with Saline -Foul Odor after Cleansing No -Bioengineered Tissue No -Bleeding Controlled with Pressure -Offloading No -Treatment Response Procedure Tolerated Well #6- RT SUPERIOR DELUNA CLUSTER -Time 17:00 -Correct Patient Yes -Correct Side, Site, Position Yes -Procedure Performed No -Post Debridement Size (cm) - Length 0 -Post Debridement Size (cm) - Width 0 -Post Debridement Size (cm) - Depth 0 -Total Square Cm 0 -Wound/Ulcer Outcome Healed- Epithelialized 5- LT LAT LEG CLUSTER -Time 16:57 -Correct Patient Yes -Correct Side, Site, Position Yes -Correct Procedure Yes -Procedure Performed Yes -Type of Procedure Debridement -Clinical Debridement Subcutaneous -Post Debridement Size (cm) - Length 0.9 -Post Debridement Size (cm) - Width 0.5 -Post Debridement Size (cm) - Depth 0.1 -Total Square Cm 0.45 -Wound/Ulcer Outcome Not Healed [See Physician Procedure note for Specifics] Psych/Mental Status: Normal Affect, Appropriate Debridement Note Post-Debridement Measurements/Treatment WC - Nurse 2 - General Ulcer CM Notes Start: 12/23/18 15:21 Freq: Status: Active Protocol: Activity Type Activity Date Activity User E-Sign Co-Sign Detail Recorded Client Recorded Date Recorded By Document 12/23/18 16:00 MW [id number] 12/23/18 16:09 MW Document 12/30/18 17:00 DV [id number] 12/30/18 17:09 DV Document 01/06/19 16:56 DV [id number] 01/06/19 17:04 DV 12/23/18 12/30/18 01/06/19 16:00 17:00 16:56 Wound Center Nurse 2 #7- RT INFERIOR DELUNA CLUSTER -Time 16:01 17:04 16:58 -Correct Patient Yes Yes Yes -Correct Side, Site, Position Yes Yes Yes -Correct Procedure Yes Yes Yes -Procedure Performed Yes Yes Yes -Type of Procedure Debridement Debridement Debridement -Clinical Debridement Subcutaneous Subcutaneous Subcutaneous -Post Debridement Size (cm) - Length 1.0 8.5 1.9 -Post Debridement Size (cm) - Width 1.0 1.0 0.9 -Post Debridement Size (cm) - Depth 0.1 0.1 0.5 -Total Square Cm 1.00 8.50 0.1 -Wound/Ulcer Outcome Not Healed Not Healed Not Healed -Ulcer Cleansing Rinsed/ Rinsed/ Rinsed/ Irrigated with Irrigated with Irrigated with Saline Saline Saline -Foul Odor after Cleansing No No No -Bioengineered Tissue No No No -Bleeding Controlled with Pressure Pressure Pressure -Offloading No No No -Treatment Response Procedure Procedure Procedure Tolerated Well Tolerated Well Tolerated Well #6- RT SUPERIOR DELUNA CLUSTER -Time 16: 17: 17:00 -Correct Patient Yes Yes Yes -Correct Side, Site, Position Yes Yes Yes -Correct Procedure Yes Yes -Procedure Performed Yes Yes No -Type of Procedure Debridement Debridement -Clinical Debridement Subcutaneous Subcutaneous -Post Debridement Size (cm) - Length 1.0 0.8 0 -Post Debridement Size (cm) - Width 1.0 0.5 0 -Post Debridement Size (cm) - Depth 0.1 0.1 0 -Total Square Cm 1.00 0.40 0 -Wound/Ulcer Outcome Not Healed Not Healed Healed- Epithelialized -Ulcer Cleansing Rinsed/ Rinsed/ Irrigated with Irrigated with Saline Saline -Foul Odor after Cleansing No No -Bioengineered Tissue No No -Bleeding Controlled with Pressure Pressure -Offloading No No -Treatment Response Procedure Procedure Tolerated Well Tolerated Well 5- LT LAT LEG CLUSTER -Time 16: 17:05 16:57 -Correct Patient Yes Yes Yes -Correct Side, Site, Position Yes Yes Yes -Correct Procedure Yes Yes Yes -Procedure Performed Yes Yes Yes -Type of Procedure Debridement Debridement Debridement -Clinical Debridement Subcutaneous Subcutaneous Subcutaneous -Post Debridement Size (cm) - Length 7.1 2.0 0.9 -Post Debridement Size (cm) - Width 1.5 1.0 0.5 -Post Debridement Size (cm) - Depth 0.1 0.1 0.1 -Total Square Cm 10.65 2.00 0.45 -Wound/Ulcer Outcome Not Healed Not Healed Not Healed -Ulcer Cleansing Rinsed/ Rinsed/ Irrigated with Irrigated with Saline Saline -Foul Odor after Cleansing No No -Bioengineered Tissue No No -Bleeding Controlled with Pressure Pressure -Offloading No No -Treatment Response Procedure Tolerated Well Pain Scale: 0-10 Numeric Is Patient Pain Free? Yes Yes Wound debrided: right inferior deluna cluster Laterality: Right Type of Debridement: Excisional debridement Anesthesia Used: 4% Lidocaine Solution Depth: Down to and including healthy tissue, in the subcutaneous layer Percentage of wound debrided: 100 Instrument Used: 5mm curette Tissue Removed: yellow slough, devitalized tissue Severity: Fat Layer Exposed Amount of bleeding with debridement: Mild Bleeding Controlled with: Compression and gauze Patient tolerated procedure well - Additional Wound Wound debrided: right superior deluna cluster Laterality: Right Type of Debridement: Excisional debridement Anesthesia Used: 4% Lidocaine Solution Depth: Down to and including healthy tissue, in the subcutaneous layer Percentage of wound debrided: 100 Instrument Used: 5mm curette Tissue Removed: yellow slough, devitalized tissue Severity: Fat Layer Exposed Amount of bleeding with debridement: Mild Bleeding Controlled with: Compression and gauze Patient tolerated procedure: Patient tolerated procedure well - Additional Wound Wound debrided: left lateral leg cluster Laterality: Left Type of Debridement: Excisional debridement Anesthesia Used: 4% Lidocaine Solution Depth: Down to and including healthy tissue, in the subcutaneous layer Percentage of wound debrided: 100 Instrument Used: 5mm curette Tissue Removed: yellow slough, devitalized tissue Severity: Fat Layer Exposed Amount of bleeding with debridement: Mild Bleeding Controlled with: Compression and gauze Patient tolerated procedure: Patient tolerated procedure well Assessment/Plan Active Problems Diabetes mellitus, insulin dependent (IDDM), uncontrolled (Chronic) Venous ulcers of both lower extremities (Chronic) Chronic venous hypertension w/ulcer and inflammation involv both sides (Chronic) Lymphedema of both lower extremities (Chronic) Assessment: nonhealing venous ulcers of b/l lower extremities. Edema b/l lower extremities. IDDM Plan: David's ulcers were evaluated and debrided today. He will continue to use Aquacel xtra on his wounds and tubigrips for compression. 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 Discussed decreased salt intake and weight loss as well as possibly having him do light duty which he states his job will not accomodate him. Vascular doesn't feel that he is a candidate for intervention at this time. Discussed importance of avoiding idle sitting and standing to treat his ulcers and encouraged to elevate his feet at or above the level of his heart as much as possible. Encouraged weight loss, tight glucose control as well. He will follow up in 1 week.
[2019-01-13 14:47] VITALS: BP 130/73; PULSE 83; RESP 18; TEMP 36.3; BMI 46.2
--- NOTE | 2019-01-13 19:17 | PCM.WC.PN ---
(1) Lymphedema of both lower extremities Status: Chronic Current Visit: Yes Code(s): I89.0 - Lymphedema, not elsewhere classified (2) Diabetes mellitus, insulin dependent (IDDM), uncontrolled Status: Chronic Current Visit: Yes Qualifiers: Glycemic state: with hyperglycemia Code(s): E10.65 - Type 1 diabetes mellitus with hyperglycemia (3) Venous ulcers of both lower extremities Status: Chronic Current Visit: Yes Code(s): I87.2 - Venous insufficiency (chronic) (peripheral); L97.919 - Non-pressure chronic ulcer of unspecified part of right lower leg with unspecified severity; L97.929 - Non-pressure chronic ulcer of unspecified part of left lower leg with unspecified severity (4) Chronic venous hypertension w/ulcer and inflammation involv both sides Status: Chronic Current Visit: Yes Code(s): I87.333 - Chronic venous hypertension (idiopathic) with ulcer and inflammation of bilateral lower extremity; L97.919 - Non-pressure chronic ulcer of unspecified part of right lower leg with unspecified severity; L97.929 - Non-pressure chronic ulcer of unspecified part of left lower leg with unspecified severity Type of Wound Date of Service: 01/13/19 Chief Complaint: nonhealing ulcers of lower extremities b/l, edema History of Wound: David is a 48 year old male that presents to the wound center for evaluation and treatment of nonhelaing ulcers of his lower legs that have been present for approximately 4 weeks. He states that his legs became swollen and then developed blisters which itched and broke open leaving sores. He has seen his PCP and they started him on Keflex 500 mg QID and he has been taking this for 4 weeks with minimal improvement. He has also been applying antibiotic ointment. He was also started on lasix which has helped his swelling somewhat. He works at the [employer] and he is on his feet all the time there. He thinks his last A1C was in August and was 8.0%. He underwent vascular testing which showed normal arterial circulation but incompetence of veins in his lower extremities bilaterally right > left. He saw Dr. Steinberg for evaluation for possible venous ablation but he did not recommend any treatment at this time. Progress of Wound: Kian is here for follow up of venous ulcers. They are improving. He saw Anna Baltimore, OT on for evaluation for lymphedema and is in the process of getting compression stockings that he can tolerate. He is using tubigrip compression and has been elevating his legs except for during work hours where he does not have the ability to rest or elevate. She is working with him to try and get compression stockings that he will tolerate and has shown him exercises which he can do as well to help control his edema. - Physical Exam Vital Signs Temp Pulse Resp BP 97.3 F L 83 18 130/73 H 01/13/19 14:47 01/13/19 14:47 01/13/19 14:47 01/13/19 14:47 General: Alert, Oriented x3, Cooperative, No apparent distress HEENT: Atraumatic, Normocephalic Oral: Moist Mucosa Abdomen: Obese Extremities: Edema Skin: Ulcer/ Wound Wound Measurements and Assessment WC - Nurse 1 - General Ulcer Measurement Start: 12/23/18 15:21 Freq: Status: Active Protocol: Activity Type Activity Date Activity User E-Sign Co-Sign Detail Recorded Client Recorded Date Recorded By Document 01/13/19 14:47 AN [id number] 01/13/19 14:53 AN 01/13/19 14:47 Wound Center Nurse 1 [Ulcer Assessment] #7- RT INFERIOR DELUNA CLUSTER -Current Size (cm) - Length 1 -Current Size (cm) - Width 1.6 -Current Size (cm) - Depth 0.1 -Total Square Cm 1.6 -Classification - Thickness Full Thickness without Exposed Support Structure -Exudate Amt Small -Exudate Type Serosanguineous -Wound Margin Flat & Intact -Granulation Amt Large (67-100%) -Granulation Quality Red -Slough/Fibrin Yes -Necrosis Amt Small (1-33%) -Necrotic Tissue Type Adherent Slough -Structure Exposed None/Limited to Skin Breakdown -Texture (Milly-wound Skin Appearance) Assessed Localized Edema -Moisture (Milyl-wound Skin Appearance Assessed ) -Color (Milly-wound Skin Appearance) Assessed Erythema -Temperature (Milly-wound Skin No Abnormality Appearance) (Pt Warm) -Tenderness on Palpation (Milly-wound No Skin Appearance) -Ulcer Cleansing Rinsed/ Irrigated with Saline -Foul Odor after Cleansing No -Anesthetic Used 5% Lidocaine Gel 5- LT LAT LEG CLUSTER -Current Size (cm) - Length 1.1 -Current Size (cm) - Width 0.6 -Current Size (cm) - Depth 0.1 -Total Square Cm 0.66 -Classification - Thickness Full Thickness without Exposed Support Structure -Exudate Amt Small -Exudate Type Serosanguineous -Wound Margin Flat & Intact -Granulation Amt Large (67-100%) -Granulation Quality Red -Necrosis Amt Small (1-33%) -Structure Exposed None/Limited to Skin Breakdown -Texture (Milly-wound Skin Appearance) Assessed Localized Edema -Moisture (Milly-wound Skin Appearance Assessed ) -Color (Milly-wound Skin Appearance) Assessed Erythema -Temperature (Milly-wound Skin No Abnormality Appearance) (Pt Warm) -Tenderness on Palpation (Milly-wound No Skin Appearance) -Ulcer Cleansing Rinsed/ Irrigated with Saline -Foul Odor after Cleansing No -Anesthetic Used 5% Lidocaine Gel [Edema Assessment] -Right Calf (cm) 48.4 -Right Ankle (cm) 25 -Left Calf (cm) 47.1 -Left Ankle (cm) 25 WC - Nurse 2 - General Ulcer CM Notes Start: 12/23/18 15:21 Freq: Status: Active Protocol: Activity Type Activity Date Activity User E-Sign Co-Sign Detail Recorded Client Recorded Date Recorded By Document 01/13/19 16:03 DV [id number] 01/13/19 16:07 DV 01/13/19 16:03 Wound Center Nurse 2 [Procedure/Treatment] 5- LT LAT LEG CLUSTER -Time 16:05 -Correct Patient Yes -Correct Side, Site, Position Yes -Correct Procedure Yes -Procedure Performed Yes -Type of Procedure Debridement -Clinical Debridement Subcutaneous -Post Debridement Size (cm) - Length 0.5 -Post Debridement Size (cm) - Width 0.3 -Post Debridement Size (cm) - Depth 0.1 -Total Square Cm 0.15 -Wound/Ulcer Outcome Not Healed -Ulcer Cleansing Rinsed/ Irrigated with Saline -Foul Odor after Cleansing No -Bioengineered Tissue No -Bleeding Controlled with Pressure -Offloading No -Treatment Response Procedure Tolerated Well [See Physician Procedure note for Specifics] Pain Scale: 0-10 Numeric [Pain] -Is Patient Pain Free? Yes Psych/Mental Status: Normal Affect, Appropriate Debridement Note Post-Debridement Measurements/Treatment WC - Nurse 2 - General Ulcer CM Notes Start: 12/23/18 15:21 Freq: Status: Active Protocol: Activity Type Activity Date Activity User E-Sign Co-Sign Detail Recorded Client Recorded Date Recorded By Document 12/23/18 16:00 MW [id number] 12/23/18 16:09 MW Document 12/30/18 17:00 DV [id number] 12/30/18 17:09 DV Document 01/06/19 16:56 DV [id number] 01/06/19 17:04 DV Document 01/13/19 16:03 DV [id number] 01/13/19 16:07 DV 12/23/18 12/30/18 01/06/19 16:00 17:00 16:56 Wound Center Nurse 2 #7- RT INFERIOR DELUNA CLUSTER -Time 16:01 17:04 16:58 -Correct Patient Yes Yes Yes -Correct Side, Site, Position Yes Yes Yes -Correct Procedure Yes Yes Yes -Procedure Performed Yes Yes Yes -Type of Procedure Debridement Debridement Debridement -Clinical Debridement Subcutaneous Subcutaneous Subcutaneous -Post Debridement Size (cm) - Length 1.0 8.5 1.9 -Post Debridement Size (cm) - Width 1.0 1.0 0.9 -Post Debridement Size (cm) - Depth 0.1 0.1 0.5 -Total Square Cm 1.00 8.50 0.1 -Wound/Ulcer Outcome Not Healed Not Healed Not Healed -Ulcer Cleansing Rinsed/ Rinsed/ Rinsed/ Irrigated with Irrigated with Irrigated with Saline Saline Saline -Foul Odor after Cleansing No No No -Bioengineered Tissue No No No -Bleeding Controlled with Pressure Pressure Pressure -Offloading No No No -Treatment Response Procedure Procedure Procedure Tolerated Well Tolerated Well Tolerated Well #6- RT SUPERIOR DELUNA CLUSTER -Time 16:01 17:05 17:00 -Correct Patient Yes Yes Yes -Correct Side, Site, Position Yes Yes Yes -Correct Procedure Yes Yes -Procedure Performed Yes Yes No -Type of Procedure Debridement Debridement -Clinical Debridement Subcutaneous Subcutaneous -Post Debridement Size (cm) - Length 1.0 0.8 0 -Post Debridement Size (cm) - Width 1.0 0.5 0 -Post Debridement Size (cm) - Depth 0.1 0.1 0 -Total Square Cm 1.00 0.40 0 -Wound/Ulcer Outcome Not Healed Not Healed Healed- Epithelialized -Ulcer Cleansing Rinsed/ Rinsed/ Irrigated with Irrigated with Saline Saline -Foul Odor after Cleansing No No -Bioengineered Tissue No No -Bleeding Controlled with Pressure Pressure -Offloading No No -Treatment Response Procedure Procedure Tolerated Well Tolerated Well 5- LT LAT LEG CLUSTER -Time 16:01 17:05 16:57 -Correct Patient Yes Yes Yes -Correct Side, Site, Position Yes Yes Yes -Correct Procedure Yes Yes Yes -Procedure Performed Yes Yes Yes -Type of Procedure Debridement Debridement Debridement -Clinical Debridement Subcutaneous Subcutaneous Subcutaneous -Post Debridement Size (cm) - Length 7.1 2.0 0.9 -Post Debridement Size (cm) - Width 1.5 1.0 0.5 -Post Debridement Size (cm) - Depth 0.1 0.1 0.1 -Total Square Cm 10.65 2.00 0.45 -Wound/Ulcer Outcome Not Healed Not Healed Not Healed -Ulcer Cleansing Rinsed/ Rinsed/ Irrigated with Irrigated with Saline Saline -Foul Odor after Cleansing No No -Bioengineered Tissue No No -Bleeding Controlled with Pressure Pressure -Offloading No No -Treatment Response Procedure Tolerated Well Pain Scale: 0-10 Numeric Is Patient Pain Free? Yes Yes 01/13/19 16:03 Wound Center Nurse 2 #7- RT INFERIOR DELUNA CLUSTER -Time -Correct Patient -Correct Side, Site, Position -Correct Procedure -Procedure Performed -Type of Procedure -Clinical Debridement -Post Debridement Size (cm) - Length -Post Debridement Size (cm) - Width -Post Debridement Size (cm) - Depth -Total Square Cm -Wound/Ulcer Outcome -Ulcer Cleansing -Foul Odor after Cleansing -Bioengineered Tissue -Bleeding Controlled with -Offloading -Treatment Response #6- RT SUPERIOR DELUNA CLUSTER -Time -Correct Patient -Correct Side, Site, Position -Correct Procedure -Procedure Performed -Type of Procedure -Clinical Debridement -Post Debridement Size (cm) - Length -Post Debridement Size (cm) - Width -Post Debridement Size (cm) - Depth -Total Square Cm -Wound/Ulcer Outcome -Ulcer Cleansing -Foul Odor after Cleansing -Bioengineered Tissue -Bleeding Controlled with -Offloading -Treatment Response 5- LT LAT LEG CLUSTER -Time 16:05 -Correct Patient Yes -Correct Side, Site, Position Yes -Correct Procedure Yes -Procedure Performed Yes -Type of Procedure Debridement -Clinical Debridement Subcutaneous -Post Debridement Size (cm) - Length 0.5 -Post Debridement Size (cm) - Width 0.3 -Post Debridement Size (cm) - Depth 0.1 -Total Square Cm 0.15 -Wound/Ulcer Outcome Not Healed -Ulcer Cleansing Rinsed/ Irrigated with Saline -Foul Odor after Cleansing No -Bioengineered Tissue No -Bleeding Controlled with Pressure -Offloading No -Treatment Response Procedure Tolerated Well Pain Scale: 0-10 Numeric Is Patient Pain Free? Yes Wound debrided: right inferior deluna Laterality: Right Type of Debridement: Excisional debridement Anesthesia Used: 4% Lidocaine Solution Depth: Down to and including healthy tissue, in the subcutaneous layer Percentage of wound debrided: 100 Instrument Used: 5mm curette Tissue Removed: yellow slough, devitalized tissue Severity: Fat Layer Exposed Amount of bleeding with debridement: Mild Bleeding Controlled with: Compression and gauze Patient tolerated procedure well post debridement length, width and depth - 1.2 cm x 2.0 cm x 0.1 cm - Additional Wound Wound debrided: left lateral leg cluster Laterality: Left Type of Debridement: Excisional debridement Anesthesia Used: 4% Lidocaine Solution, 5% Lidocaine Gel Depth: Down to and including healthy tissue, in the subcutaneous layer Percentage of wound debrided: 100 Instrument Used: 5mm curette Tissue Removed: yellow slough, devitalized tissue Severity: Fat Layer Exposed Amount of bleeding with debridement: Mild Bleeding Controlled with: Compression and gauze Patient tolerated procedure: Patient tolerated procedure well Assessment/Plan Active Problems Diabetes mellitus, insulin dependent (IDDM), uncontrolled (Chronic) Venous ulcers of both lower extremities (Chronic) Chronic venous hypertension w/ulcer and inflammation involv both sides (Chronic) Lymphedema of both lower extremities (Chronic) Assessment: nonhealing venous ulcers of b/l lower extremities. Edema b/l lower extremities. IDDM Plan: David's ulcers were evaluated and debrided today. He will continue to use Aquacel xtra on his wounds and tubigrips for compression. Referral to lymphedema clinic at [facility] made for suggestions for fci solution to his chronic edema to prevent ongoing development of ulcers and he has been seen by Anna Pichardo OT and is being instructed on exercises to do to improve lymphedema control and she is working with him to find compression that he can tolerate. Discussed decreased salt intake and weight loss as well as possibly having him do light duty which he states his job will not accomodate him. Vascular doesn't feel that he is a candidate for intervention at this time. Discussed importance of avoiding idle sitting and standing to treat his ulcers and encouraged to elevate his feet at or above the level of his heart as much as possible. Encouraged weight loss, tight glucose control as well. He will follow up in 1 week.
--- NOTE | 2019-01-13 19:22 | PN.PCM_ITS ---
(1) Lymphedema of both lower extremities Status: Chronic Current Visit: Yes Code(s): I89.0 - Lymphedema, not elsewhere classified (2) Diabetes mellitus, insulin dependent (IDDM), uncontrolled Status: Chronic Current Visit: Yes Qualifiers: Glycemic state: with hyperglycemia Code(s): E10.65 - Type 1 diabetes mellitus with hyperglycemia (3) Venous ulcers of both lower extremities Status: Chronic Current Visit: Yes Code(s): I87.2 - Venous insufficiency (chronic) (peripheral); L97.919 - Non-pressure chronic ulcer of unspecified part of right lower leg with unspecified severity; L97.929 - Non-pressure chronic ulcer of unspecified part of left lower leg with unspecified severity (4) Chronic venous hypertension w/ulcer and inflammation involv both sides Status: Chronic Current Visit: Yes Code(s): I87.333 - Chronic venous hypertension (idiopathic) with ulcer and inflammation of bilateral lower extremity; L97.919 - Non-pressure chronic ulcer of unspecified part of right l ower leg with unspecified severity; L97.929 - Non-pressure chronic ulcer of unspecified part of left lower leg with unspecified severity Type of Wound Date of Service: 01/13/19 Chief Complaint: nonhealing ulcers of lower extremities b/l, edema History of Wound: David is a 48 year old male that presents to the wound center for evaluation and treatment of nonhelaing ulcers of his lower legs that have been present for approximately 4 weeks. He states that his legs became swollen and then developed blisters which itched and broke open leaving sores. He has seen his PCP and they started him on Keflex 500 mg QID and he has been taking this for 4 weeks with minimal improvement. He has also been applying antibiotic ointment. He was also started on lasix which has helped his swelling somewhat. 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 He thinks his last A1C was in August and was 8.0%. He underwent vascular testing which showed normal arterial circulation but incompetence of veins in his lower extremities bilaterally right > left. He saw Dr. Steinberg for evaluation for possible venous ablation but he did not recommend any treatment at this time. Progress of Wound: Kian is here for follow up of venous ulcers. They are im proving. He saw Anna Pichardo OT on for evaluation for lymphedema and is in the process of getting compression stockings that he can tolerate. He is using tubigrip compression and has been elevating his legs except for during work hours where he does not have the ability to rest or elevate. She is working with him to try and get compression stockings that he will tolerate and has shown him exercises which he can do as well to help control his edema. - Physical Exam Vital Signs Temp Pulse Resp BP 97.3 F L 83 18 130/73 H 01/13/19 14:47 01/13/19 14:47 01/13/19 14:47 01/13/19 14:47 General: Alert, Oriented x3, Cooperative, No apparent distress HEENT: Atraumatic, Normocephalic Oral: Moist Mucosa Abdomen: Obese Extremities: Edema Skin: Ulcer/ Wound Wound Measurements and Assessment WC - Nurse 1 - General Ulcer Measurement Start: 12/23/18 15:21 Freq: Status: Active Protocol: Activity Type Activity Date Activity User E-Sign Co-Sign Detail Recorded Client Recorded Date Recorded By Document 01/13/19 14:47 AN [id number] 01/13/19 14:53 AN 01/13/19 14:47 Wound Center Nurse 1 [Ulcer Assessment] #7- RT INFERIOR DELUNA CLUSTER -Current Size (cm) - Length 1 -Current Size (cm) - Width 1.6 -Current Size (cm) - Depth 0.1 -Total Square Cm 1.6 -Classification - Thickness Full Thickness without Exposed Support Structure -Exudate Amt Small -Exudate Type Serosanguineous -Wound Margin Flat & Intact -Granulation Amt Large (67-100%) -Granulation Quality Red -Slough/Fibrin Yes -Necrosis Amt Small (1-33%) -Necrotic Tissue Type Adherent Slough -Structure Exposed None/Limited to Skin Breakdown -Texture (Milly-wound Skin Appearance) Assessed Localized Edema -Moisture (Milly-wound Skin Appearance Assessed ) -Color (Milly-wound Skin Appearance) Assessed Erythema -Temperature (Milly-wound Skin No Abnormality Appearance) (Pt Warm) -Tenderness on Palpation (Milly-wound No Skin Appearance) -Ulcer Cleansing Rinsed/ Irrigated with Saline -Foul Odor after Cleansing No -Anesthetic Used 5% Lidocaine Gel 5- LT LAT LEG CLUSTER -Current Size (cm) - Length 1.1 -Current Size (cm) - Width 0.6 -Current Size (cm) - Depth 0.1 -Total Square Cm 0.66 -Classification - Thickness Full Thickness without Exposed Support Structure -Exudate Amt Small -Exudate Type Serosanguineous -Wound Margin Flat & Intact -Granulation Amt Large (67-100%) -Granulation Quality Red -Necrosis Amt Small (1-33%) -Structure Exposed None/Limited to Skin Breakdown -Texture (Milly-wound Skin Appearance) Assessed Localized Edema -Moisture (Milly-wound Skin Appearance Assessed ) -Color (Milly-wound Skin Appearance) Assessed Erythema -Temperature (Milly-wound Skin No Abnormality Appearance) (Pt Warm) -Tenderness on Palpation (Milly-wound No Skin Appearance) -Ulcer Cleansing Rinsed/ Irrigated with Saline -Foul Odor after Cleansing No -Anesthetic Used 5% Lidocaine Gel [Edema Assessment] -Right Calf (cm) 48.4 -Right Ankle (cm) 25 -Left Calf (cm) 47.1 -Left Ankle (cm) 25 WC - Nurse 2 - General Ulcer CM Notes Start: 12/23/18 15:21 Freq: Status: Active Protocol: Activity Type Activity Date Activity User E-Sign Co-Sign Detail Recorded Client Recorded Date Recorded By Document 01/13/19 16:03 DV [id number] 01/13/19 16:07 DV 01/13/19 16:03 Wound Center Nurse 2 [Procedure/Treatment] 5- LT LAT LEG CLUSTER -Time 16:05 -Correct Patient Yes -Correct Side, Site, Position Yes -Correct Procedure Yes -Procedure Performed Yes -Type of Procedure Debridement -Clinical Debridement Subcutaneous -Post Debridement Size (cm) - Length 0.5 -Post Debridement Size (cm) - Width 0.3 -Post Debridement Size (cm) - Depth 0.1 -Total Square Cm 0.15 -Wound/Ulcer Outcome Not Healed -Ulcer Cleansing Rinsed/ Irrigated with Saline -Foul Odor after Cleansing No -Bioengineered Tissue No -Bleeding Controlled with Pressure -Offloading No -Treatment Response Procedure Tolerated Well [See Physician Procedure note for Specifics] Pain Scale: 0-10 Numeric [Pain] -Is Patient Pain Free? Yes Psych/Mental Status: Normal Affect, Appropriate Debridement Note Post-Debridement Measurements/Treatment WC - Nurse 2 - General Ulcer CM Notes Start: 12/23/18 15:21 Freq: Status: Active Protocol: Activity Type Activity Date Activity User E-Sign Co-Sign Detail Recorded Client Recorded Date Recorded By Document 12/23/18 16:00 MW [id number] 12/23/18 16:09 MW Document 12/30/18 17:00 DV [id number] 12/30/18 17:09 DV Document 01/06/19 16:56 DV [id number] 01/06/19 17:04 DV Document 01/13/19 16:03 DV [id number] 01/13/19 16:07 DV 12/23/18 12/30/18 01/06/19 16:00 17:00 16:56 Wound Center Nurse 2 #7- RT INFERIOR DELUNA CLUSTER -Time 16:01 17:04 16:58 -Correct Patient Yes Yes Yes -Correct Side, Site, Position Yes Yes Yes -Correct Procedure Yes Yes Yes -Procedure Performed Yes Yes Yes -Type of Procedure Debridement Debridement Debridement -Clinical Debridement Subcutaneous Subcutaneous Subcutaneous -Post Debridement Size (cm) - Length 1.0 8.5 1.9 -Post Debridement Size (cm) - Width 1.0 1.0 0.9 -Post Debridement Size (cm) - Depth 0.1 0.1 0.5 -Total Square Cm 1.00 8.50 0.1 -Wound/Ulcer Outcome Not Healed Not Healed Not Healed -Ulcer Cleansing Rinsed/ Rinsed/ Rinsed/ Irrigated with Irrigated with Irrigated with Saline Saline Saline -Foul Odor after Cleansing No No No -Bioengineered Tissue No No No -Bleeding Controlled with Pressure Pressure Pressure -Offloading No No No -Treatment Response Procedure Procedure Procedure Tolerated Well Tolerated Well Tolerated Well #6- RT SUPERIOR DELUNA CLUSTER -Time 16:01 17:05 17:00 -Correct Patient Yes Yes Yes -Correct Side, Site, Position Yes Yes Yes -Correct Procedure Yes Yes -Procedure Performed Yes Yes No -Type of Procedure Debridement Debridement -Clinical Debridement Subcutaneous Subcutaneous -Post Debridement Size (cm) - Length 1.0 0.8 0 -Post Debridement Size (cm) - Width 1.0 0.5 0 -Post Debridement Size (cm) - Depth 0.1 0.1 0 -Total Square Cm 1.00 0.40 0 -Wound/Ulcer Outcome Not Healed Not Healed Healed- Epithelialized -Ulcer Cleansing Rinsed/ Rinsed/ Irrigated with Irrigated with Saline Saline -Foul Odor after Cleansing No No -Bioengineered Tissue No No -Bleeding Controlled with Pressure Pressure -Offloading No No -Treatment Response Procedure Procedure Tolerated Well Tolerated Well 5- LT LAT LEG CLUSTER -Time 16:01 17:05 16:57 -Correct Patient Yes Yes Yes -Correct Side, Site, Position Yes Yes Yes -Correct Procedure Yes Yes Yes -Procedure Performed Yes Yes Yes -Type of Procedure Debridement Debridement Debridement -Clinical Debridement Subcutaneous Subcutaneous Subcutaneous -Post Debridement Size (cm) - Length 7.1 2.0 0.9 -Post Debridement Size (cm) - Width 1.5 1.0 0.5 -Post Debridement Size (cm) - Depth 0.1 0.1 0.1 -Total Square Cm 10.65 2.00 0.45 -Wound/Ulcer Outcome Not Healed Not Healed Not Healed -Ulcer Cleansing Rinsed/ Rinsed/ Irrigated with Irrigated with Saline Saline -Foul Odor after Cleansing No No -Bioengineered Tissue No No -Bleeding Controlled with Pressure Pressure -Offloading No No -Treatment Response Procedure Tolerated Well Pain Scale: 0-10 Numeric Is Patient Pain Free? Yes Yes 01/13/19 16:03 Wound Center Nurse 2 #7- RT INFERIOR DELUNA CLUSTER -Time -Correct Patient -Correct Side, Site, Position -Correct Procedure -Procedure Performed -Type of Procedure -Clinical Debridement -Post Debridement Size (cm) - Length -Post Debridement Size (cm) - Width -Post Debridement Size (cm) - Depth -Total Square Cm -Wound/Ulcer Outcome -Ulcer Cleansing -Foul Odor after Cleansing -Bioengineered Tissue -Bleeding Controlled with -Offloading -Treatment Response #6- RT SUPERIOR DELUNA CLUSTER -Time -Correct Patient -Correct Side, Site, Position -Correct Procedure -Procedure Performed -Type of Procedure -Clinical Debridement -Post Debridement Size (cm) - Length -Post Debridement Size (cm) - Width -Post Debridement Size (cm) - Depth -Total Square Cm -Wound/Ulcer Outcome -Ulcer Cleansing -Foul Odor after Cleansing -Bioengineered Tissue -Bleeding Controlled with -Offloading -Treatment Response 5- LT LAT LEG CLUSTER -Time 16:05 -Correct Patient Yes -Correct Side, Site, Position Yes -Correct Procedure Yes -Procedure Performed Yes -Type of Procedure Debridement -Clinical Debridement Subcutaneous -Post Debridement Size (cm) - Length 0.5 -Post Debridement Size (cm) - Width 0.3 -Post Debridement Size (cm) - Depth 0.1 -Total Square Cm 0.15 -Wound/Ulcer Outcome Not Healed -Ulcer Cleansing Rinsed/ Irrigated with Saline -Foul Odor after Cleansing No -Bioengineered Tissue No -Bleeding Controlled with Pressure -Offloading No -Treatment Response Procedure Tolerated Well Pain Scale: 0-10 Numeric Is Patient Pain Free? Yes Wound debrided: right inferior deluna Laterality: Right Type of Debridement: Excisional debridement Anesthesia Used: 4% Lidocaine Solution Depth: Down to and including healthy tissue, in the subcutaneous layer Percentage of wound debrided: 100 Instrument Used: 5mm curette Tissue Removed: yellow slough, devitalized tissue Severity: Fat Layer Exposed Amount of bleeding with debridement: Mild Bleeding Controlled with: Compression and gauze Patient tolerated procedure well post debridement length, width and depth - 1.2 cm x 2.0 cm x 0.1 cm - Additional Wound Wound debrided: left lateral leg cluster Laterality: Left Type of Debridement: Excisional debridement Anesthesia Used: 4% Lidocaine Solution, 5% Lidocaine Gel Depth: Down to and including healthy tissue, in the subcutaneous layer Percentage of wound debrided: 100 Instrument Used: 5mm curette Tissue Removed: yellow slough, devitalized tissue Severity: Fat Layer Exposed Amount of bleeding with debridement: Mild Bleeding Controlled with: Compression and gauze Patient tolerated procedure: Patient tolerated procedure well Assessment/Plan Active Problems Diabetes mellitus, insulin dependent (IDDM), uncontrolled (Chronic) Venous ulcers of both lower extremities (Chronic) Chronic venous hypertension w/ulcer and inflammation involv both sides (Chronic) Lymphedema of both lower extremities (Chronic) Assessment: nonhealing venous ulcers of b/l lower extremities. Edema b/l lower extremities. IDDM Plan: David's ulcers were evaluated and debrided today. He will continue to use Aquacel xtra on his wounds and tubigrips for compression. Referral to lymphedema clinic at [facility] made for suggestions for snf solution to his chronic edema to prevent ongoing development of ulcers and he has been seen by Anna Pichardo OT and is being instructed on exercises to do to improve lymphedema control and she is working with him to find compression that he can tolerate. Discussed decreased salt intake and weight loss as well as possibly having him do light duty which he states his job will not accomodate him. Vascular doesn't feel that he is a candidate for intervention at this time. Discussed importance of avoiding idle sitting and standing to treat his ulcers and encouraged to elevate his feet at or above the level of his heart as much as possible. Encouraged weight loss, tight glucose control as well. He will follow up in 1 week.
== END 2019-01-19 23:59 ==
LOC: WC 14:45
PROVIDERS: Family Provider Family Medicine; PCP Family Medicine; Referring Provider Family Medicine; Visit Provider Family Medicine
DX: I87.333 Chronic venous hypertension (idiopathic) with ulcer and inflammation of bilateral lower extremity (principal); E10.65 Type 1 diabetes mellitus with hyperglycemia; L97.812 Non-pressure chronic ulcer of other part of right lower leg with fat layer exposed; L97.822 Non-pressure chronic ulcer of other part of left lower leg with fat layer exposed
CPT/HCPCS: 11042

== ENCOUNTER 2019-02-17 15:00 | Outpatient (RCR) | payer BC, SELFPAY ==
[2019-01-20 01:08] VITALS: BP 130/73; PULSE 83; RESP 18; TEMP 36.3
[2019-01-20 15:54] VITALS: BP 128/75; PULSE 81; RESP 16; TEMP 36.1; BMI 46.2
--- NOTE | 2019-01-20 19:14 | PCM.WC.PN ---
(1) Diabetes mellitus, insulin dependent (IDDM), uncontrolled Status: Chronic Current Visit: Yes Qualifiers: Glycemic state: with hyperglycemia Code(s): E10.65 - Type 1 diabetes mellitus with hyperglycemia (2) Venous ulcers of both lower extremities Status: Chronic Current Visit: Yes Code(s): I87.2 - Venous insufficiency (chronic) (peripheral); L97.919 - Non-pressure chronic ulcer of unspecified part of right lower leg with unspecified severity; L97.929 - Non-pressure chronic ulcer of unspecified part of left lower leg with unspecified severity (3) Chronic venous hypertension w/ulcer and inflammation involv both sides Status: Chronic Current Visit: Yes Code(s): I87.333 - Chronic venous hypertension (idiopathic) with ulcer and inflammation of bilateral lower extremity; L97.919 - Non-pressure chronic ulcer of unspecified part of right lower leg with unspecified severity; L97.929 - Non-pressure chronic ulcer of unspecified part of left lower leg with unspecified severity (4) Lymphedema of both lower extremities Status: Chronic Current Visit: Yes Code(s): I89.0 - Lymphedema, not elsewhere classified Type of Wound Date of Service: 01/20/19 Chief Complaint: nonhealing ulcers of lower extremities b/l, edema History of Wound: David is a 48 year old male that presents to the wound center for evaluation and treatment of nonhelaing ulcers of his lower legs that have been present for approximately 4 weeks. He states that his legs became swollen and then developed blisters which itched and broke open leaving sores. He has seen his PCP and they started him on Keflex 500 mg QID and he has been taking this for 4 weeks with minimal improvement. He has also been applying antibiotic ointment. He was also started on lasix which has helped his swelling somewhat. He works at the [employer] and he is on his feet all the time there. He thinks his last A1C was in August and was 8.0%. He underwent vascular testing which showed normal arterial circulation but incompetence of veins in his lower extremities bilaterally right > left. He saw Dr. Steinberg for evaluation for possible venous ablation but he did not recommend any treatment at this time. Progress of Wound: Kian is here for follow up of venous ulcers. They are improving. He saw Anna Maize, OT on for evaluation for lymphedema and is in the process of getting compression stockings that he can tolerate. He is using tubigrip compression and has been elevating his legs except for during work hours where he does not have the ability to rest or elevate. She is working with him to try and get compression stockings that he will tolerate and has shown him exercises which he can do as well to help control his edema. - Physical Exam Vital Signs Temp Pulse Resp BP 97 F L 81 16 128/75 H 01/20/19 15:54 01/20/19 15:54 01/20/19 15:54 01/20/19 15:54 General: Alert, Oriented x3, Cooperative, No apparent distress HEENT: Atraumatic, Normocephalic Oral: Moist Mucosa Abdomen: Obese Extremities: Edema Skin: Ulcer/ Wound Wound Measurements and Assessment WC - Nurse 1 - General Ulcer Measurement Start: 01/20/19 15:46 Freq: Status: Active Protocol: Activity Type Activity Date Activity User E-Sign Co-Sign Detail Recorded Client Recorded Date Recorded By Document 01/20/19 15:54 [place] [id number] 01/20/19 16:09 [place] 01/20/19 15:54 Wound Center Nurse 1 [Ulcer Assessment] #7- RT INFERIOR DELUNA CLUSTER -Combined with other wound No -Current Size (cm) - Length 0.6 -Current Size (cm) - Width 0.4 -Current Size (cm) - Depth 0.1 -Total Square Cm 0.24 -Photo Taken No -Epithelialization Large 67-100% -Tunneling No -Undermining/Tunneling No -Circular Undermining No -Exudate Amt None Present -Wound Margin Flat & Intact -Granulation Amt Large (67-100%) -Granulation Quality Pale [place] -Necrosis Amt None Present (0 %) -Texture (Milly-wound Skin Appearance) Assessed Localized Edema -Moisture (Milly-wound Skin Appearance Assessed ) -Color (Milly-wound Skin Appearance) Assessed Erythema -Temperature (Milly-wound Skin No Abnormality Appearance) (Pt Warm) -Tenderness on Palpation (Milly-wound No Skin Appearance) -Ulcer Cleansing Wound Cleanser -Foul Odor after Cleansing No -Anesthetic Used 4% Lidocaine Solution #6- RT SUPERIOR DELUNA CLUSTER -Current Size (cm) - Length 0.1 -Current Size (cm) - Width 0.1 -Current Size (cm) - Depth 0.1 -Total Square Cm 0.01 5- LT LAT LEG CLUSTER -Current Size (cm) - Length 0.1 -Current Size (cm) - Width 0.1 -Current Size (cm) - Depth 0.1 -Total Square Cm 0.01 -Color (Milly-wound Skin Appearance) Erythema -Ulcer Cleansing Wound Cleanser #3 LEFT LATERAL LE -Current Size (cm) - Length 0.1 -Current Size (cm) - Width 0.1 -Current Size (cm) - Depth 0.1 -Total Square Cm 0.01 -Color (Milly-wound Skin Appearance) Erythema -Ulcer Cleansing Wound Cleanser [Edema Assessment] -Right Calf (cm) 38 -Right Ankle (cm) 24.5 -Left Calf (cm) 46 -Point of Measurement (cm from the 27 medial instep) WC - Nurse 2 - General Ulcer CM Notes Start: 01/20/19 15:46 Freq: Status: Active Protocol: Activity Type Activity Date Activity User E-Sign Co-Sign Detail Recorded Client Recorded Date Recorded By Document 01/20/19 16:44 DV [id number] 01/20/19 16:50 DV 01/20/19 16:44 Wound Center Nurse 2 [Procedure/Treatment] #7- RT INFERIOR DELUNA CLUSTER -Time 16:45 -Correct Patient Yes -Correct Side, Site, Position Yes -Correct Procedure Yes -Procedure Performed Yes -Type of Procedure Debridement -Clinical Debridement Subcutaneous -Post Debridement Size (cm) - Length 0.5 -Post Debridement Size (cm) - Width 1.0 -Post Debridement Size (cm) - Depth 0.1 -Total Square Cm 0.50 -Wound/Ulcer Outcome Not Healed -Ulcer Cleansing Rinsed/ Irrigated with Saline -Foul Odor after Cleansing No -Bioengineered Tissue No -Bleeding Controlled with Pressure -Offloading No -Treatment Response Procedure Tolerated Well #6- RT SUPERIOR DELUNA CLUSTER -Time 16:47 -Correct Patient Yes -Correct Side, Site, Position Yes -Correct Procedure No -Procedure Performed No -Post Debridement Size (cm) - Length 0 -Post Debridement Size (cm) - Width 0 -Post Debridement Size (cm) - Depth 0 -Total Square Cm 0 -Wound/Ulcer Outcome Healed- Epithelialized 5- LT LAT LEG CLUSTER -Time 16:48 -Correct Patient Yes -Correct Side, Site, Position Yes -Correct Procedure Yes -Procedure Performed Yes -Type of Procedure Debridement -Clinical Debridement Subcutaneous -Post Debridement Size (cm) - Length 0.7 -Post Debridement Size (cm) - Width 0.4 -Post Debridement Size (cm) - Depth 0.1 -Total Square Cm 0.28 -Wound/Ulcer Outcome Not Healed -Ulcer Cleansing Rinsed/ Irrigated with Saline -Foul Odor after Cleansing No -Bioengineered Tissue No -Bleeding Controlled with Pressure -Treatment Response Procedure Tolerated Well #3 LEFT LATERAL LE -Time 16:49 -Correct Patient Yes -Correct Side, Site, Position Yes -Procedure Performed No -Post Debridement Size (cm) - Length 0 -Post Debridement Size (cm) - Width 0 -Post Debridement Size (cm) - Depth 0 -Total Square Cm 0 -Wound/Ulcer Outcome Healed- Epithelialized [See Physician Procedure note for Specifics] Pain Scale: 0-10 Numeric [Pain] -Is Patient Pain Free? Yes Psych/Mental Status: Normal Affect, Appropriate Debridement Note Post-Debridement Measurements/Treatment WC - Nurse 2 - General Ulcer CM Notes Start: 01/20/19 15:46 Freq: Status: Active Protocol: Activity Type Activity Date Activity User E-Sign Co-Sign Detail Recorded Client Recorded Date Recorded By Document 01/20/19 16:44 DV [id number] 01/20/19 16:50 DV 01/20/19 16:44 Wound Center Nurse 2 #7- RT INFERIOR DELUNA CLUSTER -Time 16:45 -Correct Patient Yes -Correct Side, Site, Position Yes -Correct Procedure Yes -Procedure Performed Yes -Type of Procedure Debridement -Clinical Debridement Subcutaneous -Post Debridement Size (cm) - Length 0.5 -Post Debridement Size (cm) - Width 1.0 -Post Debridement Size (cm) - Depth 0.1 -Total Square Cm 0.50 -Wound/Ulcer Outcome Not Healed -Ulcer Cleansing Rinsed/ Irrigated with Saline -Foul Odor after Cleansing No -Bioengineered Tissue No -Bleeding Controlled with Pressure -Offloading No -Treatment Response Procedure Tolerated Well #6- RT SUPERIOR DELUNA CLUSTER -Time 16:47 -Correct Patient Yes -Correct Side, Site, Position Yes -Correct Procedure No -Procedure Performed No -Post Debridement Size (cm) - Length 0 -Post Debridement Size (cm) - Width 0 -Post Debridement Size (cm) - Depth 0 -Total Square Cm 0 -Wound/Ulcer Outcome Healed- Epithelialized 5- LT LAT LEG CLUSTER -Time 16:48 -Correct Patient Yes -Correct Side, Site, Position Yes -Correct Procedure Yes -Procedure Performed Yes -Type of Procedure Debridement -Clinical Debridement Subcutaneous -Post Debridement Size (cm) - Length 0.7 -Post Debridement Size (cm) - Width 0.4 -Post Debridement Size (cm) - Depth 0.1 -Total Square Cm 0.28 -Wound/Ulcer Outcome Not Healed -Ulcer Cleansing Rinsed/ Irrigated with Saline -Foul Odor after Cleansing No -Bioengineered Tissue No -Bleeding Controlled with Pressure -Treatment Response Procedure Tolerated Well #3 LEFT LATERAL LE -Time 16:49 -Correct Patient Yes -Correct Side, Site, Position Yes -Procedure Performed No -Post Debridement Size (cm) - Length 0 -Post Debridement Size (cm) - Width 0 -Post Debridement Size (cm) - Depth 0 -Total Square Cm 0 -Wound/Ulcer Outcome Healed- Epithelialized Pain Scale: 0-10 Numeric Is Patient Pain Free? Yes Wound debrided: right inferior deluna cluster Laterality: Right Type of Debridement: Excisional debridement Anesthesia Used: 4% Lidocaine Solution Depth: Down to and including healthy tissue, in the subcutaneous layer Percentage of wound debrided: 100 Instrument Used: 5mm curette Tissue Removed: yellow slough, devitalized tissue Severity: Fat Layer Exposed Amount of bleeding with debridement: Mild Bleeding Controlled with: Compression and gauze Patient tolerated procedure well - Additional Wound Wound debrided: left lateral LE Laterality: Left Operative Diagnosis: no debridement completed due to the ulcer being healed - Additional Wound Wound debrided: left lateral leg cluster Laterality: Left Type of Debridement: Excisional debridement Anesthesia Used: 4% Lidocaine Solution Depth: Down to and including healthy tissue, in the subcutaneous layer Percentage of wound debrided: 100 Instrument Used: 5mm curette Tissue Removed: yellow slough, devitalized tissue Severity: Fat Layer Exposed Amount of bleeding with debridement: Mild Bleeding Controlled with: Compression and gauze Patient tolerated procedure: Patient tolerated procedure well Assessment/Plan Active Problems Diabetes mellitus, insulin dependent (IDDM), uncontrolled (Chronic) Venous ulcers of both lower extremities (Chronic) Chronic venous hypertension w/ulcer and inflammation involv both sides (Chronic) Lymphedema of both lower extremities (Chronic) Assessment: nonhealing venous ulcers of b/l lower extremities. Edema b/l lower extremities. IDDM Plan: David's ulcers were evaluated and debrided today. He will continue to use Aquacel xtra on his wounds and tubigrips for compression. Referral to lymphedema clinic at [facility] made for suggestions for fci solution to his chronic edema to prevent ongoing development of ulcers and he has been seen by Anna Pichardo OT and is being instructed on exercises to do to improve lymphedema control and she is working with him to find compression that he can tolerate. Discussed decreased salt intake and weight loss as well as possibly having him do light duty which he states his job will not accomodate him. Vascular doesn't feel that he is a candidate for intervention at this time. Discussed importance of avoiding idle sitting and standing to treat his ulcers and encouraged to elevate his feet at or above the level of his heart as much as possible. Encouraged weight loss, tight glucose control as well. He will follow up in 2 weeks.
--- NOTE | 2019-01-20 19:17 | PN.PCM_ITS ---
(1) Diabetes mellitus, insulin dependent (IDDM), uncontrolled Status: Chronic Current Visit: Yes Qualifiers: Glycemic state: with hyperglycemia Code(s): E10.65 - Type 1 diabetes mellitus with hyperglycemia (2) Venous ulcers of both lower extremities Status: Chronic Current Visit: Yes Code(s): I87.2 - Venous insufficiency (chronic) (peripheral); L97.919 - Non-pressure chronic ulcer of unspecified part of right lower leg with unspecified severity; L97.929 - Non-pressure chronic ulcer of unspecified part of left lower leg with unspecified severity (3) Chronic venous hypertension w/ulcer and inflammation involv both sides Status: Chronic Current Visit: Yes Code(s): I87.333 - Chronic venous hypertension (idiopathic) with ulcer and inflammation of bilateral lower extremity; L97.919 - Non-pressure chronic ulcer of unspecified part of right lower leg with unspecified severity; L97.929 - Non-pressure chronic ulcer of unspecified part of left lower leg with unspecified severity (4) Lymphedema of both lower extremities Status: Chronic Current Visit: Yes Code(s): I89.0 - Lymphedema, not elsewhere classified Type of Wound Date of Service: 01/20/19 Chief Complaint: nonhealing ulcers of lower extremities b/l, edema History of Wound: David is a 48 year old male that presents to the wound center for evaluation and treatment of nonhelaing ulcers of his lower legs that have been present for approximately 4 weeks. He states that his legs became swollen and then developed blisters which itched and broke open leaving sores. He has seen his PCP and they started him on Keflex 500 mg QID and he has been taking this for 4 weeks with minimal improvement. He has also been applying antibiotic ointment. He was also started on lasix which has helped his swelling somewhat. 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 He thinks his last A1C was in August and was 8.0%. He underwent vascular testing which showed normal arterial circulation but incompetence of veins in his lower extremities bilaterally right > left. He saw Dr. Steinberg for evaluation for possible venous ablation but he did not recommend any treatment at this time. Progress of Wound: Kian is here for follow up of venous ulcers. They are im proving. He saw Anna Peterman, OT on for evaluation for lymphedema and is in the process of getting compression stockings that he can tolerate. He is using tubigrip compression and has been elevating his legs except for during work hours where he does not have the ability to rest or elevate. She is working with him to try and get compression stockings that he will tolerate and has shown him exercises which he can do as well to help control his edema. - Physical Exam Vital Signs Temp Pulse Resp BP 97 F L 81 16 128/75 H 01/20/19 15:54 01/20/19 15:54 01/20/19 15:54 01/20/19 15:54 General: Alert, Oriented x3, Cooperative, No apparent distress HEENT: Atraumatic, Normocephalic Oral: Moist Mucosa Abdomen: Obese Extremities: Edema Skin: Ulcer/ Wound Wound Measurements and Assessment WC - Nurse 1 - General Ulcer Measurement Start: 01/20/19 15:46 Freq: Status: Active Protocol: Activity Type Activity Date Activity User E-Sign Co-Sign Detail Recorded Client Recorded Date Recorded By Document 01/20/19 15:54 NV [id number] 01/20/19 16:09 NV 01/20/19 15:54 Wound Center Nurse 1 [Ulcer Assessment] #7- RT INFERIOR DEULNA CLUSTER -Combined with other wound No -Current Size (cm) - Length 0.6 -Current Size (cm) - Width 0.4 -Current Size (cm) - Depth 0.1 -Total Square Cm 0.24 -Photo Taken No -Epithelialization Large 67-100% -Tunneling No -Undermining/Tunneling No -Circular Undermining No -Exudate Amt None Present -Wound Margin Flat & Intact -Granulation Amt Large (67-100%) -Granulation Quality Pale [place] -Necrosis Amt None Present (0 %) -Texture (Milly-wound Skin Appearance) Assessed Localized Edema -Moisture (Milly-wound Skin Appearance Assessed ) -Color (Milly-wound Skin Appearance) Assessed Erythema -Temperature (Milly-wound Skin No Abnormality Appearance) (Pt Warm) -Tenderness on Palpation (Milly-wound No Skin Appearance) -Ulcer Cleansing Wound Cleanser -Foul Odor after Cleansing No -Anesthetic Used 4% Lidocaine Solution #6- RT SUPERIOR DELUNA CLUSTER -Current Size (cm) - Length 0.1 -Current Size (cm) - Width 0.1 -Current Size (cm) - Depth 0.1 -Total Square Cm 0.01 5- LT LAT LEG CLUSTER -Current Size (cm) - Length 0.1 -Current Size (cm) - Width 0.1 -Current Size (cm) - Depth 0.1 -Total Square Cm 0.01 -Color (Milly-wound Skin Appearance) Erythema -Ulcer Cleansing Wound Cleanser #3 LEFT LATERAL LE -Current Size (cm) - Length 0.1 -Current Size (cm) - Width 0.1 -Current Size (cm) - Depth 0.1 -Total Square Cm 0.01 -Color (Milly-wound Skin Appearance) Erythema -Ulcer Cleansing Wound Cleanser [Edema Assessment] -Right Calf (cm) 38 -Right Ankle (cm) 24.5 -Left Calf (cm) 46 -Point of Measurement (cm from the 27 medial instep) WC - Nurse 2 - General Ulcer CM Notes Start: 01/20/19 15:46 Freq: Status: Active Protocol: Activity Type Activity Date Activity User E-Sign Co-Sign Detail Recorded Client Recorded Date Recorded By Document 01/20/19 16:44 DV [id number] 01/20/19 16:50 DV 01/20/19 16:44 Wound Center Nurse 2 [Procedure/Treatment] #7- RT INFERIOR DELUNA CLUSTER -Time 16:45 -Correct Patient Yes -Correct Side, Site, Position Yes -Correct Procedure Yes -Procedure Performed Yes -Type of Procedure Debridement -Clinical Debridement Subcutaneous -Post Debridement Size (cm) - Length 0.5 -Post Debridement Size (cm) - Width 1.0 -Post Debridement Size (cm) - Depth 0.1 -Total Square Cm 0.50 -Wound/Ulcer Outcome Not Healed -Ulcer Cleansing Rinsed/ Irrigated with Saline -Foul Odor after Cleansing No -Bioengineered Tissue No -Bleeding Controlled with Pressure -Offloading No -Treatment Response Procedure Tolerated Well #6- RT SUPERIOR DELUNA CLUSTER -Time 16:47 -Correct Patient Yes -Correct Side, Site, Position Yes -Correct Procedure No -Procedure Performed No -Post Debridement Size (cm) - Length 0 -Post Debridement Size (cm) - Width 0 -Post Debridement Size (cm) - Depth 0 -Total Square Cm 0 -Wound/Ulcer Outcome Healed- Epithelialized 5- LT LAT LEG CLUSTER -Time 16:48 -Correct Patient Yes -Correct Side, Site, Position Yes -Correct Procedure Yes -Procedure Performed Yes -Type of Procedure Debridement -Clinical Debridement Subcutaneous -Post Debridement Size (cm) - Length 0.7 -Post Debridement Size (cm) - Width 0.4 -Post Debridement Size (cm) - Depth 0.1 -Total Square Cm 0.28 -Wound/Ulcer Outcome Not Healed -Ulcer Cleansing Rinsed/ Irrigated with Saline -Foul Odor after Cleansing No -Bioengineered Tissue No -Bleeding Controlled with Pressure -Treatment Response Procedure Tolerated Well #3 LEFT LATERAL LE -Time 16:49 -Correct Patient Yes -Correct Side, Site, Position Yes -Procedure Performed No -Post Debridement Size (cm) - Length 0 -Post Debridement Size (cm) - Width 0 -Post Debridement Size (cm) - Depth 0 -Total Square Cm 0 -Wound/Ulcer Outcome Healed- Epithelialized [See Physician Procedure note for Specifics] Pain Scale: 0-10 Numeric [Pain] -Is Patient Pain Free? Yes Psych/Mental Status: Normal Affect, Appropriate Debridement Note Post-Debridement Measurements/Treatment WC - Nurse 2 - General Ulcer CM Notes Start: 01/20/19 15:46 Freq: Status: Active Protocol: Activity Type Activity Date Activity User E-Sign Co-Sign Detail Recorded Client Recorded Date Recorded By Document 01/20/19 16:44 DV [id number] 01/20/19 16:50 DV 01/20/19 16:44 Wound Center Nurse 2 #7- RT INFERIOR DELUNA CLUSTER -Time 16:45 -Correct Patient Yes -Correct Side, Site, Position Yes -Correct Procedure Yes -Procedure Performed Yes -Type of Procedure Debridement -Clinical Debridement Subcutaneous -Post Debridement Size (cm) - Length 0.5 -Post Debridement Size (cm) - Width 1.0 -Post Debridement Size (cm) - Depth 0.1 -Total Square Cm 0.50 -Wound/Ulcer Outcome Not Healed -Ulcer Cleansing Rinsed/ Irrigated with Saline -Foul Odor after Cleansing No -Bioengineered Tissue No -Bleeding Controlled with Pressure -Offloading No -Treatment Response Procedure Tolerated Well #6- RT SUPERIOR DELUNA CLUSTER -Time 16:47 -Correct Patient Yes -Correct Side, Site, Position Yes -Correct Procedure No -Procedure Performed No -Post Debridement Size (cm) - Length 0 -Post Debridement Size (cm) - Width 0 -Post Debridement Size (cm) - Depth 0 -Total Square Cm 0 -Wound/Ulcer Outcome Healed- Epithelialized 5- LT LAT LEG CLUSTER -Time 16:48 -Correct Patient Yes -Correct Side, Site, Position Yes -Correct Procedure Yes -Procedure Performed Yes -Type of Procedure Debridement -Clinical Debridement Subcutaneous -Post Debridement Size (cm) - Length 0.7 -Post Debridement Size (cm) - Width 0.4 -Post Debridement Size (cm) - Depth 0.1 -Total Square Cm 0.28 -Wound/Ulcer Outcome Not Healed -Ulcer Cleansing Rinsed/ Irrigated with Saline -Foul Odor after Cleansing No -Bioengineered Tissue No -Bleeding Controlled with Pressure -Treatment Response Procedure Tolerated Well #3 LEFT LATERAL LE -Time 16:49 -Correct Patient Yes -Correct Side, Site, Position Yes -Procedure Performed No -Post Debridement Size (cm) - Length 0 -Post Debridement Size (cm) - Width 0 -Post Debridement Size (cm) - Depth 0 -Total Square Cm 0 -Wound/Ulcer Outcome Healed- Epithelialized Pain Scale: 0-10 Numeric Is Patient Pain Free? Yes Wound debrided: right inferior deluna cluster Laterality: Right Type of Debridement: Excisional debridement Anesthesia Used: 4% Lidocaine Solution Depth: Down to and including healthy tissue, in the subcutaneous layer Percentage of wound debrided: 100 Instrument Used: 5mm curette Tissue Removed: yellow slough, devitalized tissue Severity: Fat Layer Exposed Amount of bleeding with debridement: Mild Bleeding Controlled with: Compression and gauze Patient tolerated procedure well - Additional Wound Wound debrided: left lateral LE Laterality: Left Operative Diagnosis: no debridement completed due to the ulcer being healed - Additional Wound Wound debrided: left lateral leg cluster Laterality: Left Type of Debridement: Excisional debridement Anesthesia Used: 4% Lidocaine Solution Depth: Down to and including healthy tissue, in the subcutaneous layer Percentage of wound debrided: 100 Instrument Used: 5mm curette Tissue Removed: yellow slough, devitalized tissue Severity: Fat Layer Exposed Amount of bleeding with debridement: Mild Bleeding Controlled with: Compression and gauze Patient tolerated procedure: Patient tolerated procedure well Assessment/Plan Active Problems Diabetes mellitus, insulin dependent (IDDM), uncontrolled (Chronic) Venous ulcers of both lower extremities (Chronic) Chronic venous hypertension w/ulcer and inflammation involv both sides (Chronic) Lymphedema of both lower extremities (Chronic) Assessment: nonhealing venous ulcers of b/l lower extremities. Edema b/l lower extremities. IDDM Plan: David's ulcers were evaluated and debrided today. He will continue to use Aquacel xtra on his wounds and tubigrips for compression. Referral to lymphedema clinic at [facility] [place] made for suggestions for usp solution to his chronic edema to prevent ongoing development of ulcers and he has been seen by Anna Pichardo OT and is being instructed on exercises to do to improve lymphedema control and she is working with him to find compression that he can tolerate. Discussed decreased salt intake and weight loss as well as possibly having him do light duty which he states his job will not accomodate him. Vascular doesn't feel that he is a candidate for intervention at this time. Discussed importance of avoiding idle sitting and standing to treat his ulcers and encouraged to elevate his feet at or above the level of his heart as much as possible. Encouraged weight loss, tight glucose control as well. He will follow up in 2 weeks.
[2019-02-03 14:52] VITALS: RESP 18; TEMP 36.1; BMI 46.2
--- NOTE | 2019-02-03 18:04 | PCM.WC.PN ---
(1) Diabetes mellitus, insulin dependent (IDDM), uncontrolled Status: Chronic Current Visit: Yes Qualifiers: Glycemic state: with hyperglycemia Code(s): E10.65 - Type 1 diabetes mellitus with hyperglycemia (2) Venous ulcers of both lower extremities Status: Chronic Current Visit: Yes Code(s): I87.2 - Venous insufficiency (chronic) (peripheral); L97.919 - Non-pressure chronic ulcer of unspecified part of right lower leg with unspecified severity; L97.929 - Non-pressure chronic ulcer of unspecified part of left lower leg with unspecified severity (3) Chronic venous hypertension w/ulcer and inflammation involv both sides Status: Chronic Current Visit: Yes Code(s): I87.333 - Chronic venous hypertension (idiopathic) with ulcer and inflammation of bilateral lower extremity; L97.919 - Non-pressure chronic ulcer of unspecified part of right lower leg with unspecified severity; L97.929 - Non-pressure chronic ulcer of unspecified part of left lower leg with unspecified severity (4) Lymphedema of both lower extremities Status: Chronic Current Visit: Yes Code(s): I89.0 - Lymphedema, not elsewhere classified Type of Wound Date of Service: 02/03/19 Chief Complaint: nonhealing ulcers of lower extremities b/l, edema History of Wound: David is a 48 year old male that presents to the wound center for evaluation and treatment of nonhelaing ulcers of his lower legs that have been present for approximately 4 weeks. He states that his legs became swollen and then developed blisters which itched and broke open leaving sores. He has seen his PCP and they started him on Keflex 500 mg QID and he has been taking this for 4 weeks with minimal improvement. He has also been applying antibiotic ointment. He was also started on lasix which has helped his swelling somewhat. 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 He thinks his last A1C was in August and was 8.0%. He underwent vascular testing which showed normal arterial circulation but incompetence of veins in his lower extremities bilaterally right > left. He saw Dr. Steinberg for evaluation for possible venous ablation but he did not recommend any treatment at this time. Progress of Wound: Kian is here for follow up of venous ulcers. They are improving but unfortunately he developed a new ulcer of his right deluna after striking it on a step when he tripped. He also developed a diabetic foot ulcer of his left heel since his last visit at a callused area. He saw Anna Pichardo OT on for evaluation for lymphedema and is in the process of getting compression stockings but he has not been able to tolerate conventional compression stockings previously. He is using tubigrip compression and has been elevating his legs except for during work hours where he does not have the ability to rest or elevate. She has shown him exercises which he can do as well to help control his edema and he has been compliant with these. He has continued to develop new areas even when using tubigrip compression. He has failed surepress and RADHA wraps and Circaid compression as none of them would stay in place. - Physical Exam Vital Signs Temp Pulse Resp BP 97 F L 81 18 128/75 H 02/03/19 14:52 01/20/19 15:54 02/03/19 14:52 01/20/19 15:54 General: Alert, Oriented x3, Cooperative, No apparent distress HEENT: Atraumatic, Normocephalic Oral: Moist Mucosa Abdomen: Obese Extremities: Edema Skin: Ulcer/ Wound Wound Measurements and Assessment WC - Nurse 1 - General Ulcer Measurement Start: 01/20/19 15:46 Freq: Status: Active Protocol: Activity Type Activity Date Activity User E-Sign Co-Sign Detail Recorded Client Recorded Date Recorded By Document 02/03/19 14:52 [facility] [id number] 02/03/19 15:03 [facility] 02/03/19 14:52 Wound Center Nurse 1 [Ulcer Assessment] #9- RT DELUNA -Combined with other wound No -Current Size (cm) - Length 3.6 -Current Size (cm) - Width 3 -Current Size (cm) - Depth 0.1 -Total Square Cm 10.8 -Date of Last Picture (Recall this 02/03/19 field) -Photo Taken Yes -Epithelialization None Present -Tunneling No -Undermining/Tunneling No -Circular Undermining No -Exudate Amt Small -Exudate Type Serosanguineous -Wound Margin Flat & Intact -Granulation Amt Large (67-100%) -Granulation Quality Red -Slough/Fibrin No -Necrosis Amt None Present (0 %) -Texture (Milly-wound Skin Appearance) Scarring -Moisture (Milly-wound Skin Appearance Dry/Scaly ) -Color (Milly-wound Skin Appearance) Erythema -Temperature (Milly-wound Skin No Abnormality Appearance) (Pt Warm) -Tenderness on Palpation (Milly-wound No Skin Appearance) -Ulcer Cleansing Rinsed/ Irrigated with Saline -Foul Odor after Cleansing No -Anesthetic Used 5% Lidocaine Gel #8- LT LAT HEEL -Combined with other wound No -Current Size (cm) - Length 0.5 -Current Size (cm) - Width 1 -Current Size (cm) - Depth 0.4 -Total Square Cm 0.5 -Date of Last Picture (Recall this 02/03/19 field) -Photo Taken Yes -Epithelialization None Present -Tunneling No -Undermining/Tunneling Yes -Undermining/Tunneling Starts (O' 12 clock) -Undermining/Tunneling Ends (O'clock) 12 -Maximum Distance (cm) 0.4 -Circular Undermining Yes -Classification - Thickness Full Thickness without Exposed Support Structure -Exudate Amt Medium -Exudate Type Serosanguineous -Wound Margin Distinct, Outline Attached -Granulation Amt Small (1-33%) -Granulation Quality [place] -Slough/Fibrin Yes -Necrosis Amt Medium (34-66%) -Necrotic Tissue Type Adherent Slough -Texture (Milly-wound Skin Appearance) Callus Scarring -Moisture (Milly-wound Skin Appearance Dry/Scaly ) -Color (Milly-wound Skin Appearance) Assessed -Temperature (Milly-wound Skin No Abnormality Appearance) (Pt Warm) -Tenderness on Palpation (Milly-wound No Skin Appearance) -Ulcer Cleansing Rinsed/ Irrigated with Saline -Foul Odor after Cleansing No -Anesthetic Used 5% Lidocaine Gel #7- RT INFERIOR DELUNA CLUSTER -Combined with other wound No -Current Size (cm) - Length 0.1 -Current Size (cm) - Width 0.1 -Current Size (cm) - Depth 0.1 -Total Square Cm 0.01 -Epithelialization Large 67-100% -Tunneling No -Undermining/Tunneling No -Circular Undermining No -Exudate Amt None Present -Texture (Milly-wound Skin Appearance) Assessed -Moisture (Milly-wound Skin Appearance Assessed ) -Color (Milly-wound Skin Appearance) Assessed -Temperature (Milly-wound Skin No Abnormality Appearance) (Pt Warm) -Tenderness on Palpation (Milly-wound No Skin Appearance) -Ulcer Cleansing Rinsed/ Irrigated with Saline -Foul Odor after Cleansing No -Anesthetic Used 5% Lidocaine Gel 5- LT LAT LEG CLUSTER -Combined with other wound No -Current Size (cm) - Length 0.1 -Current Size (cm) - Width 0.1 -Current Size (cm) - Depth 0.1 -Total Square Cm 0.01 -Epithelialization Large 67-100% -Tunneling No -Undermining/Tunneling No -Circular Undermining No -Exudate Amt None Present -Temperature (Milly-wound Skin No Abnormality Appearance) (Pt Warm) -Tenderness on Palpation (Milly-wound No Skin Appearance) -Ulcer Cleansing Rinsed/ Irrigated with Saline -Foul Odor after Cleansing No -Anesthetic Used 5% Lidocaine Gel [Edema Assessment] -Lower Limb Edema Present Yes -Right Calf (cm) 46.2 -Right Ankle (cm) 24.2 -Left Calf (cm) 46.2 -Left Ankle (cm) 23.8 WC - Nurse 2 - General Ulcer CM Notes Start: 01/20/19 15:46 Freq: Status: Active Protocol: Activity Type Activity Date Activity User E-Sign Co-Sign Detail Recorded Client Recorded Date Recorded By Document 02/03/19 15:17 AN [id number] 02/03/19 15:52 AN 02/03/19 15:17 Wound Center Nurse 2 [Procedure/Treatment] #9- RT DELUNA -Time 15:17 -Correct Patient Yes -Correct Side, Site, Position Yes -Correct Procedure Yes -Procedure Performed Yes -Type of Procedure Debridement -Clinical Debridement Subcutaneous -Post Debridement Size (cm) - Length 3.7 -Post Debridement Size (cm) - Width 5.4 -Post Debridement Size (cm) - Depth 0.1 -Total Square Cm 19.98 -Wound/Ulcer Outcome Not Healed -Ulcer Cleansing Rinsed/ Irrigated with Saline -Foul Odor after Cleansing No -Bioengineered Tissue No -Bleeding Controlled with Pressure -Offloading No -Treatment Response Procedure Tolerated Well #8- LT LAT HEEL -Time 15:17 -Correct Patient Yes -Correct Side, Site, Position Yes -Correct Procedure Yes -Procedure Performed Yes -Type of Procedure Debridement -Clinical Debridement Subcutaneous -Post Debridement Size (cm) - Length 0.6 -Post Debridement Size (cm) - Width 1.1 -Post Debridement Size (cm) - Depth 0.4 -Total Square Cm 0.66 -Wound/Ulcer Outcome Not Healed #7- RT INFERIOR DELUNA CLUSTER -Time 15:18 -Correct Patient Yes -Correct Side, Site, Position Yes -Procedure Performed No -Post Debridement Size (cm) - Length 0 -Post Debridement Size (cm) - Width 0 -Post Debridement Size (cm) - Depth 0 -Total Square Cm 0 -Wound/Ulcer Outcome Healed- Epithelialized 5- LT LAT LEG CLUSTER -Time 15:19 -Correct Patient Yes -Correct Side, Site, Position Yes -Correct Procedure Yes -Procedure Performed Yes -Type of Procedure Debridement -Clinical Debridement Subcutaneous -Post Debridement Size (cm) - Length 0.4 -Post Debridement Size (cm) - Width 0.1 -Post Debridement Size (cm) - Depth 0.1 -Total Square Cm 0.04 -Wound/Ulcer Outcome Not Healed -Ulcer Cleansing Rinsed/ Irrigated with Saline -Foul Odor after Cleansing No -Bioengineered Tissue No -Bleeding Controlled with Pressure -Offloading No -Treatment Response Procedure Tolerated Well [See Physician Procedure note for Specifics] Pain Scale: 0-10 Numeric [Pain] -Is Patient Pain Free? Yes Psych/Mental Status: Normal Affect, Appropriate Debridement Note Post-Debridement Measurements/Treatment WC - Nurse 2 - General Ulcer CM Notes Start: 01/20/19 15:46 Freq: Status: Active Protocol: Activity Type Activity Date Activity User E-Sign Co-Sign Detail Recorded Client Recorded Date Recorded By Document 01/20/19 16:44 DV [id number] 01/20/19 16:50 DV Document 02/03/19 15:17 AN [id number] 02/03/19 15:52 AN 01/20/19 02/03/19 16:44 15:17 Wound Center Nurse 2 #9- RT DELUNA -Time 15:17 -Correct Patient Yes -Correct Side, Site, Position Yes -Correct Procedure Yes -Procedure Performed Yes -Type of Procedure Debridement -Clinical Debridement Subcutaneous -Post Debridement Size (cm) - Length 3.7 -Post Debridement Size (cm) - Width 5.4 -Post Debridement Size (cm) - Depth 0.1 -Total Square Cm 19.98 -Wound/Ulcer Outcome Not Healed -Ulcer Cleansing Rinsed/ Irrigated with Saline -Foul Odor after Cleansing No -Bioengineered Tissue No -Bleeding Controlled with Pressure -Offloading No -Treatment Response Procedure Tolerated Well #8- LT LAT HEEL -Time 15:17 -Correct Patient Yes -Correct Side, Site, Position Yes -Correct Procedure Yes -Procedure Performed Yes -Type of Procedure Debridement -Clinical Debridement Subcutaneous -Post Debridement Size (cm) - Length 0.6 -Post Debridement Size (cm) - Width 1.1 -Post Debridement Size (cm) - Depth 0.4 -Total Square Cm 0.66 -Wound/Ulcer Outcome Not Healed #7- RT INFERIOR DELUNA CLUSTER -Time 16:45 15:18 -Correct Patient Yes Yes -Correct Side, Site, Position Yes Yes -Correct Procedure Yes -Procedure Performed Yes No -Type of Procedure Debridement -Clinical Debridement Subcutaneous -Post Debridement Size (cm) - Length 0.5 0 -Post Debridement Size (cm) - Width 1.0 0 -Post Debridement Size (cm) - Depth 0.1 0 -Total Square Cm 0.50 0 -Wound/Ulcer Outcome Not Healed Healed- Epithelialized -Ulcer Cleansing Rinsed/ Irrigated with Saline -Foul Odor after Cleansing No -Bioengineered Tissue No -Bleeding Controlled with Pressure -Offloading No -Treatment Response Procedure Tolerated Well #6- RT SUPERIOR DELUNA CLUSTER -Time 16:47 -Correct Patient Yes -Correct Side, Site, Position Yes -Correct Procedure No -Procedure Performed No -Post Debridement Size (cm) - Length 0 -Post Debridement Size (cm) - Width 0 -Post Debridement Size (cm) - Depth 0 -Total Square Cm 0 -Wound/Ulcer Outcome Healed- Epithelialized 5- LT LAT LEG CLUSTER -Time 16:48 15:19 -Correct Patient Yes Yes -Correct Side, Site, Position Yes Yes -Correct Procedure Yes Yes -Procedure Performed Yes Yes -Type of Procedure Debridement Debridement -Clinical Debridement Subcutaneous Subcutaneous -Post Debridement Size (cm) - Length 0.7 0.4 -Post Debridement Size (cm) - Width 0.4 0.1 -Post Debridement Size (cm) - Depth 0.1 0.1 -Total Square Cm 0.28 0.04 -Wound/Ulcer Outcome Not Healed Not Healed -Ulcer Cleansing Rinsed/ Rinsed/ Irrigated with Irrigated with Saline Saline -Foul Odor after Cleansing No No -Bioengineered Tissue No No -Bleeding Controlled with Pressure Pressure -Offloading No -Treatment Response Procedure Procedure Tolerated Well Tolerated Well #3 LEFT LATERAL LE -Time 16:49 -Correct Patient Yes -Correct Side, Site, Position Yes -Procedure Performed No -Post Debridement Size (cm) - Length 0 -Post Debridement Size (cm) - Width 0 -Post Debridement Size (cm) - Depth 0 -Total Square Cm 0 -Wound/Ulcer Outcome Healed- Epithelialized Pain Scale: 0-10 Numeric Is Patient Pain Free? Yes Yes Wound debrided: Right deluna Laterality: Right Type of Debridement: Excisional debridement Anesthesia Used: 4% Lidocaine Solution Depth: Down to and including healthy tissue, in the subcutaneous layer Percentage of wound debrided: 100 Instrument Used: 5mm curette Tissue Removed: yellow slough, devitalized tissue Severity: Fat Layer Exposed Amount of bleeding with debridement: Mild Bleeding Controlled with: Compression and gauze Patient tolerated procedure well - Additional Wound Wound debrided: right superior deluna cluster Laterality: Right Type of Debridement: Selective debridement Anesthesia Used: 4% Lidocaine Solution Depth: Down to and including healthy tissue, in the subcutaneous layer Percentage of wound debrided: 100 Instrument Used: 5mm curette Tissue Removed: yellow slough, devitalized tissue Severity: Limited To Skin Breakdown Amount of bleeding with debridement: None Patient tolerated procedure: Patient tolerated procedure well - Additional Wound Wound debrided: left lateral leg cluster Laterality: Left Type of Debridement: Excisional debridement Anesthesia Used: 4% Lidocaine Solution, 5% Lidocaine Gel Depth: Down to and including healthy tissue, in the subcutaneous layer Percentage of wound debrided: 100 Instrument Used: 5mm curette Tissue Removed: yellow slough, devitalized tissue Severity: Fat Layer Exposed Amount of bleeding with debridement: Mild Bleeding Controlled with: Compression and gauze Patient tolerated procedure: Patient tolerated procedure well - Additional Wound Wound debrided: left lateral heel Laterality: Left Wound Grade/Stage: cruz grade 2 Type of Debridement: Excisional debridement Anesthesia Used: 4% Lidocaine Solution, 5% Lidocaine Gel Depth: Down to and including healthy tissue, in the subcutaneous layer Percentage of wound debrided: 100 Instrument Used: 5mm curette Tissue Removed: yellow slough, devitalized tissue Severity: Fat Layer Exposed Amount of bleeding with debridement: Mild Bleeding Controlled with: Compression and gauze Patient tolerated procedure: Patient tolerated procedure well Assessment/Plan Active Problems Diabetes mellitus, insulin dependent (IDDM), uncontrolled (Chronic) Venous ulcers of both lower extremities (Chronic) Chronic venous hypertension w/ulcer and inflammation involv both sides (Chronic) Lymphedema of both lower extremities (Chronic) Assessment: nonhealing venous ulcers of b/l lower extremities. Edema b/l lower extremities. IDDM Plan: David's ulcers were evaluated and debrided today. He will continue to use Aquacel xtra on his wounds and tubigrips for compression. Will have him use Promogran to his heel. Referral to lymphedema clinic at [facility] made for suggestions for dermatological surgeon solution to his chronic edema to prevent ongoing development of ulcers and he has been seen by Anna Pichardo OT and is being instructed on exercises to do to improve lymphedema control and she is working with him to find compression that he can tolerate. Discussed decreased salt intake and weight loss as well as possibly having him do light duty which he states his job will not accomodate him. Vascular doesn't feel that he is a candidate for intervention at this time. Discussed importance of avoiding idle sitting and standing to treat his ulcers and encouraged to elevate his feet at or above the level of his heart as much as possible. He would benefit from lymphedema pumps due to his chronic venous insufficiency with recurrent ulcers and stage 2 lymphedema. Encouraged weight loss, tight glucose control as well. He will follow up in 2 weeks.
--- NOTE | 2019-02-03 18:09 | PN.PCM_ITS ---
(1) Diabetes mellitus, insulin dependent (IDDM), uncontrolled Status: Chronic Current Visit: Yes Qualifiers: Glycemic state: with hyperglycemia Code(s): E10.65 - Type 1 diabetes mellitus with hyperglycemia (2) Venous ulcers of both lower extremities Status: Chronic Current Visit: Yes Code(s): I87.2 - Venous insufficiency (chronic) (peripheral); L97.919 - Non-pressure chronic ulcer of unspecified part of right lower leg with unspecified severity; L97.929 - Non-pressure chronic ulcer of unspecified part of left lower leg with unspecified severity (3) Chronic venous hypertension w/ulcer and inflammation involv both sides Status: Chronic Current Visit: Yes Code(s): I87.333 - Chronic venous hypertension (idiopathic) with ulcer and inflammation of bilateral lower extremity; L97.919 - Non-pressure chronic ulcer of unspecified part of right lower leg with unspecified severity; L97.929 - Non-pressure chronic ulcer of unspecified part of left lower leg with unspecified severity (4) Lymphedema of both lower extremities Status: Chronic Current Visit: Yes Code(s): I89.0 - Lymphedema, not elsewhere classified Type of Wound Date of Service: 02/03/19 Chief Complaint: nonhealing ulcers of lower extremities b/l, edema History of Wound: David is a 48 year old male that presents to the wound center for evaluation and treatment of nonhelaing ulcers of his lower legs that have been present for approximately 4 weeks. He states that his legs became swollen and then developed blisters which itched and broke open leaving sores. He has seen his PCP and they started him on Keflex 500 mg QID and he has been taking this for 4 weeks with minimal improvement. He has also been applying antibiotic ointment. He was also started on lasix which has helped his swelling somewhat. 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 He thinks his last A1C was in August and was 8.0%. He underwent vascular testing which showed normal arterial circulation but incompetence of veins in his lower extremities bilaterally right > left. He saw Dr. Steinberg for evaluation for possible venous ablation but he did not recommend any treatment at this time. Progress of Wound: Kian is here for follow up of venous ulcers. They are im proving but unfortunately he developed a new ulcer of his right deluna after striking it on a step when he tripped. He also developed a diabetic foot ulcer of his left heel since his last visit at a callused area. He saw Anna Pichardo OT on for evaluation for lymphedema and is in the process of getting compression stockings but he has not been able to tolerate conventional compression stockings previously. He is using tubigrip compression and has been elevating his legs except for during work hours where he does not have the ability to rest or elevate. She has shown him exercises which he can do as well to help control his edema and he has been compliant with these. He has continued to develop new areas even when using tubigrip compression. He has failed surepress and RADHA wraps and Circaid compression as none of them would stay in place. - Physical Exam Vital Signs Temp Pulse Resp BP 97 F L 81 18 128/75 H 02/03/19 14:52 01/20/19 15:54 02/03/19 14:52 01/20/19 15:54 General: Alert, Oriented x3, Cooperative, No apparent distress HEENT: Atraumatic, Normocephalic Oral: Moist Mucosa Abdomen: Obese Extremities: Edema Skin: Ulcer/ Wound Wound Measurements and Assessment WC - Nurse 1 - General Ulcer Measurement Start: 01/20/19 15:46 Freq: Status: Active Protocol: Activity Type Activity Date Activity User E-Sign Co-Sign Detail Recorded Client Recorded Date Recorded By Document 02/03/19 14:52 [facility] [id number] 02/03/19 15:03 [facility] 02/03/19 14:52 Wound Center Nurse 1 [Ulcer Assessment] #9- RT DELUNA -Combined with other wound No -Current Size (cm) - Length 3.6 -Current Size (cm) - Width 3 -Current Size (cm) - Depth 0.1 -Total Square Cm 10.8 -Date of Last Picture (Recall this 02/03/19 field) -Photo Taken Yes -Epithelialization None Present -Tunneling No -Undermining/Tunneling No -Circular Undermining No -Exudate Amt Small -Exudate Type Serosanguineous -Wound Margin Flat & Intact -Granulation Amt Large (67-100%) -Granulation Quality Red -Slough/Fibrin No -Necrosis Amt None Present (0 %) -Texture (Milly-wound Skin Appearance) Scarring -Moisture (Milly-wound Skin Appearance Dry/Scaly ) -Color (Milly-wound Skin Appearance) Erythema -Temperature (Milly-wound Skin No Abnormality Appearance) (Pt Warm) -Tenderness on Palpation (Milly-wound No Skin Appearance) -Ulcer Cleansing Rinsed/ Irrigated with Saline -Foul Odor after Cleansing No -Anesthetic Used 5% Lidocaine Gel #8- LT LAT HEEL -Combined with other wound No -Current Size (cm) - Length 0.5 -Current Size (cm) - Width 1 -Current Size (cm) - Depth 0.4 -Total Square Cm 0.5 -Date of Last Picture (Recall this 02/03/19 field) -Photo Taken Yes -Epithelialization None Present -Tunneling No -Undermining/Tunneling Yes -Undermining/Tunneling Starts (O' 12 clock) -Undermining/Tunneling Ends (O'clock) 12 -Maximum Distance (cm) 0.4 -Circular Undermining Yes -Classification - Thickness Full Thickness without Exposed Support Structure -Exudate Amt Medium -Exudate Type Serosanguineous -Wound Margin Distinct, Outline Attached -Granulation Amt Small (1-33%) -Granulation Quality [place] -Slough/Fibrin Yes -Necrosis Amt Medium (34-66%) -Necrotic Tissue Type Adherent Slough -Texture (Milly-wound Skin Appearance) Callus Scarring -Moisture (Milly-wound Skin Appearance Dry/Scaly ) -Color (Milly-wound Skin Appearance) Assessed -Temperature (Milly-wound Skin No Abnormality Appearance) (Pt Warm) -Tenderness on Palpation (Milly-wound No Skin Appearance) -Ulcer Cleansing Rinsed/ Irrigated with Saline -Foul Odor after Cleansing No -Anesthetic Used 5% Lidocaine Gel #7- RT INFERIOR DELUNA CLUSTER -Combined with other wound No -Current Size (cm) - Length 0.1 -Current Size (cm) - Width 0.1 -Current Size (cm) - Depth 0.1 -Total Square Cm 0.01 -Epithelialization Large 67-100% -Tunneling No -Undermining/Tunneling No -Circular Undermining No -Exudate Amt None Present -Texture (Milly-wound Skin Appearance) Assessed -Moisture (Milly-wound Skin Appearance Assessed ) -Color (Milly-wound Skin Appearance) Assessed -Temperature (Milly-wound Skin No Abnormality Appearance) (Pt Warm) -Tenderness on Palpation (Milly-wound No Skin Appearance) -Ulcer Cleansing Rinsed/ Irrigated with Saline -Foul Odor after Cleansing No -Anesthetic Used 5% Lidocaine Gel 5- LT LAT LEG CLUSTER -Combined with other wound No -Current Size (cm) - Length 0.1 -Current Size (cm) - Width 0.1 -Current Size (cm) - Depth 0.1 -Total Square Cm 0.01 -Epithelialization Large 67-100% -Tunneling No -Undermining/Tunneling No -Circular Undermining No -Exudate Amt None Present -Temperature (Milly-wound Skin No Abnormality Appearance) (Pt Warm) -Tenderness on Palpation (Milly-wound No Skin Appearance) -Ulcer Cleansing Rinsed/ Irrigated with Saline -Foul Odor after Cleansing No -Anesthetic Used 5% Lidocaine Gel [Edema Assessment] -Lower Limb Edema Present Yes -Right Calf (cm) 46.2 -Right Ankle (cm) 24.2 -Left Calf (cm) 46.2 -Left Ankle (cm) 23.8 WC - Nurse 2 - General Ulcer CM Notes Start: 01/20/19 15:46 Freq: Status: Active Protocol: Activity Type Activity Date Activity User E-Sign Co-Sign Detail Recorded Client Recorded Date Recorded By Document 02/03/19 15:17 AN [id number] 02/03/19 15:52 AN 02/03/19 15:17 Wound Center Nurse 2 [Procedure/Treatment] #9- RT DELUNA -Time 15:17 -Correct Patient Yes -Correct Side, Site, Position Yes -Correct Procedure Yes -Procedure Performed Yes -Type of Procedure Debridement -Clinical Debridement Subcutaneous -Post Debridement Size (cm) - Length 3.7 -Post Debridement Size (cm) - Width 5.4 -Post Debridement Size (cm) - Depth 0.1 -Total Square Cm 19.98 -Wound/Ulcer Outcome Not Healed -Ulcer Cleansing Rinsed/ Irrigated with Saline -Foul Odor after Cleansing No -Bioengineered Tissue No -Bleeding Controlled with Pressure -Offloading No -Treatment Response Procedure Tolerated Well #8- LT LAT HEEL -Time 15:17 -Correct Patient Yes -Correct Side, Site, Position Yes -Correct Procedure Yes -Procedure Performed Yes -Type of Procedure Debridement -Clinical Debridement Subcutaneous -Post Debridement Size (cm) - Length 0.6 -Post Debridement Size (cm) - Width 1.1 -Post Debridement Size (cm) - Depth 0.4 -Total Square Cm 0.66 -Wound/Ulcer Outcome Not Healed #7- RT INFERIOR DELUNA CLUSTER -Time 15:18 -Correct Patient Yes -Correct Side, Site, Position Yes -Procedure Performed No -Post Debridement Size (cm) - Length 0 -Post Debridement Size (cm) - Width 0 -Post Debridement Size (cm) - Depth 0 -Total Square Cm 0 -Wound/Ulcer Outcome Healed- Epithelialized 5- LT LAT LEG CLUSTER -Time 15:19 -Correct Patient Yes -Correct Side, Site, Position Yes -Correct Procedure Yes -Procedure Performed Yes -Type of Procedure Debridement -Clinical Debridement Subcutaneous -Post Debridement Size (cm) - Length 0.4 -Post Debridement Size (cm) - Width 0.1 -Post Debridement Size (cm) - Depth 0.1 -Total Square Cm 0.04 -Wound/Ulcer Outcome Not Healed -Ulcer Cleansing Rinsed/ Irrigated with Saline -Foul Odor after Cleansing No -Bioengineered Tissue No -Bleeding Controlled with Pressure -Offloading No -Treatment Response Procedure Tolerated Well [See Physician Procedure note for Specifics] Pain Scale: 0-10 Numeric [Pain] -Is Patient Pain Free? Yes Psych/Mental Status: Normal Affect, Appropriate Debridement Note Post-Debridement Measurements/Treatment WC - Nurse 2 - General Ulcer CM Notes Start: 01/20/19 15:46 Freq: Status: Active Protocol: Activity Type Activity Date Activity User E-Sign Co-Sign Detail Recorded Client Recorded Date Recorded By Document 01/20/19 16:44 DV [id number] 01/20/19 16:50 DV Document 02/03/19 15:17 AN [id number] 02/03/19 15:52 AN 01/20/19 02/03/19 16:44 15:17 Wound Center Nurse 2 #9- RT DELUNA -Time 15:17 -Correct Patient Yes -Correct Side, Site, Position Yes -Correct Procedure Yes -Procedure Performed Yes -Type of Procedure Debridement -Clinical Debridement Subcutaneous -Post Debridement Size (cm) - Length 3.7 -Post Debridement Size (cm) - Width 5.4 -Post Debridement Size (cm) - Depth 0.1 -Total Square Cm 19.98 -Wound/Ulcer Outcome Not Healed -Ulcer Cleansing Rinsed/ Irrigated with Saline -Foul Odor after Cleansing No -Bioengineered Tissue No -Bleeding Controlled with Pressure -Offloading No -Treatment Response Procedure Tolerated Well #8- LT LAT HEEL -Time 15:17 -Correct Patient Yes -Correct Side, Site, Position Yes -Correct Procedure Yes -Procedure Performed Yes -Type of Procedure Debridement -Clinical Debridement Subcutaneous -Post Debridement Size (cm) - Length 0.6 -Post Debridement Size (cm) - Width 1.1 -Post Debridement Size (cm) - Depth 0.4 -Total Square Cm 0.66 -Wound/Ulcer Outcome Not Healed #7- RT INFERIOR DELUNA CLUSTER -Time 16:45 15:18 -Correct Patient Yes Yes -Correct Side, Site, Position Yes Yes -Correct Procedure Yes -Procedure Performed Yes No -Type of Procedure Debridement -Clinical Debridement Subcutaneous -Post Debridement Size (cm) - Length 0.5 0 -Post Debridement Size (cm) - Width 1.0 0 -Post Debridement Size (cm) - Depth 0.1 0 -Total Square Cm 0.50 0 -Wound/Ulcer Outcome Not Healed Healed- Epithelialized -Ulcer Cleansing Rinsed/ Irrigated with Saline -Foul Odor after Cleansing No -Bioengineered Tissue No -Bleeding Controlled with Pressure -Offloading No -Treatment Response Procedure Tolerated Well #6- RT SUPERIOR DELUNA CLUSTER -Time 16:47 -Correct Patient Yes -Correct Side, Site, Position Yes -Correct Procedure No -Procedure Performed No -Post Debridement Size (cm) - Length 0 -Post Debridement Size (cm) - Width 0 -Post Debridement Size (cm) - Depth 0 -Total Square Cm 0 -Wound/Ulcer Outcome Healed- Epithelialized 5- LT LAT LEG CLUSTER -Time 16:48 15:19 -Correct Patient Yes Yes -Correct Side, Site, Position Yes Yes -Correct Procedure Yes Yes -Procedure Performed Yes Yes -Type of Procedure Debridement Debridement -Clinical Debridement Subcutaneous Subcutaneous -Post Debridement Size (cm) - Length 0.7 0.4 -Post Debridement Size (cm) - Width 0.4 0.1 -Post Debridement Size (cm) - Depth 0.1 0.1 -Total Square Cm 0.28 0.04 -Wound/Ulcer Outcome Not Healed Not Healed -Ulcer Cleansing Rinsed/ Rinsed/ Irrigated with Irrigated with Saline Saline -Foul Odor after Cleansing No No -Bioengineered Tissue No No -Bleeding Controlled with Pressure Pressure -Offloading No -Treatment Response Procedure Procedure Tolerated Well Tolerated Well #3 LEFT LATERAL LE -Time 16:49 -Correct Patient Yes -Correct Side, Site, Position Yes -Procedure Performed No -Post Debridement Size (cm) - Length 0 -Post Debridement Size (cm) - Width 0 -Post Debridement Size (cm) - Depth 0 -Total Square Cm 0 -Wound/Ulcer Outcome Healed- Epithelialized Pain Scale: 0-10 Numeric Is Patient Pain Free? Yes Yes Wound debrided: Right deluna Laterality: Right Type of Debridement: Excisional debridement Anesthesia Used: 4% Lidocaine Solution Depth: Down to and including healthy tissue, in the subcutaneous layer Percentage of wound debrided: 100 Instrument Used: 5mm curette Tissue Removed: yellow slough, devitalized tissue Severity: Fat Layer Exposed Amount of bleeding with debridement: Mild Bleeding Controlled with: Compression and gauze Patient tolerated procedure well - Additional Wound Wound debrided: right superior deluna cluster Laterality: Right Type of Debridement: Selective debridement Anesthesia Used: 4% Lidocaine Solution Depth: Down to and including healthy tissue, in the subcutaneous layer Percentage of wound debrided: 100 Instrument Used: 5mm curette Tissue Removed: yellow slough, devitalized tissue Severity: Limited To Skin Breakdown Amount of bleeding with debridement: None Patient tolerated procedure: Patient tolerated procedure well - Additional Wound Wound debrided: left lateral leg cluster Laterality: Left Type of Debridement: Excisional debridement Anesthesia Used: 4% Lidocaine Solution, 5% Lidocaine Gel Depth: Down to and including healthy tissue, in the subcutaneous layer Percentage of wound debrided: 100 Instrument Used: 5mm curette Tissue Removed: yellow slough, devitalized tissue Severity: Fat Layer Exposed Amount of bleeding with debridement: Mild Bleeding Controlled with: Compression and gauze Patient tolerated procedure: Patient tolerated procedure well - Additional Wound Wound debrided: left lateral heel Laterality: Left Wound Grade/Stage: cruz grade 2 Type of Debridement: Excisional debridement Anesthesia Used: 4% Lidocaine Solution, 5% Lidocaine Gel Depth: Down to and including healthy tissue, in the subcutaneous layer Percentage of wound debrided: 100 Instrument Used: 5mm curette Tissue Removed: yellow slough, devitalized tissue Severity: Fat Layer Exposed Amount of bleeding with debridement: Mild Bleeding Controlled with: Compression and gauze Patient tolerated procedure: Patient tolerated procedure well Assessment/Plan Active Problems Diabetes mellitus, insulin dependent (IDDM), uncontrolled (Chronic) Venous ulcers of both lower extremities (Chronic) Chronic venous hypertension w/ulcer and inflammation involv both sides (Chronic) Lymphedema of both lower extremities (Chronic) Assessment: nonhealing venous ulcers of b/l lower extremities. Edema b/l lower extremities. IDDM Plan: David's ulcers were evaluated and debrided today. He will continue to use Aquacel xtra on his wounds and tubigrips for compression. Will have him use Promogran to his heel. 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 Discussed decreased salt intake and weight loss as well as possibly having him do light duty which he states his job will not accomodate him. Vascular doesn't feel that he is a candidate for intervention at this time. Discussed importance of avoiding idle sitting and standing to treat his ulcers and encouraged to elevate his feet at or above the level of his heart as much as possible. He would benefit from lymphedema pumps due to his chronic venous insufficiency with recurrent ulcers and stage 2 lymphedema. Encouraged weight loss, tight glucose control as well. He will follow up in 2 weeks.
[2019-02-10 14:55] VITALS: BP 133/69; RESP 18; TEMP 36; BMI 46.2
--- NOTE | 2019-02-10 18:21 | PCM.WC.PN ---
(1) Diabetes mellitus, insulin dependent (IDDM), uncontrolled Status: Chronic Current Visit: Yes Qualifiers: Glycemic state: with hyperglycemia Code(s): E10.65 - Type 1 diabetes mellitus with hyperglycemia (2) Venous ulcers of both lower extremities Status: Chronic Current Visit: Yes Code(s): I87.2 - Venous insufficiency (chronic) (peripheral); L97.919 - Non-pressure chronic ulcer of unspecified part of right lower leg with unspecified severity; L97.929 - Non-pressure chronic ulcer of unspecified part of left lower leg with unspecified severity (3) Chronic venous hypertension w/ulcer and inflammation involv both sides Status: Chronic Current Visit: Yes Code(s): I87.333 - Chronic venous hypertension (idiopathic) with ulcer and inflammation of bilateral lower extremity; L97.919 - Non-pressure chronic ulcer of unspecified part of right lower leg with unspecified severity; L97.929 - Non-pressure chronic ulcer of unspecified part of left lower leg with unspecified severity (4) Lymphedema of both lower extremities Status: Chronic Current Visit: Yes Code(s): I89.0 - Lymphedema, not elsewhere classified (5) Ulcer of heel due to diabetes Status: Chronic Current Visit: Yes Qualifiers: Diabetes mellitus type: type 2 Laterality: left Non-pressure ulcer stage: with fat layer exposed Qualified Code(s): E11.621 - Type 2 diabetes mellitus with foot ulcer; L97.422 - Non-pressure chronic ulcer of left heel and midfoot with fat layer exposed Code(s): E11.621 - Type 2 diabetes mellitus with foot ulcer; L97.409 - Non-pressure chronic ulcer of unspecified heel and midfoot with unspecified severity Type of Wound Date of Service: 02/10/19 Chief Complaint: nonhealing ulcers of lower extremities b/l, edema, DFU left heel History of Wound: David is a 48 year old male that presents to the wound center for evaluation and treatment of nonhelaing ulcers of his lower legs that have been present for approximately 4 weeks. He states that his legs became swollen and then developed blisters which itched and broke open leaving sores. He has seen his PCP and they started him on Keflex 500 mg QID and he has been taking this for 4 weeks with minimal improvement. He has also been applying antibiotic ointment. He was also started on lasix which has helped his swelling somewhat. He works at the [employer] real time [employer] and he is on his feet all the time there. He thinks his last A1C was in August and was 8.0%. He underwent vascular testing which showed normal arterial circulation but incompetence of veins in his lower extremities bilaterally right > left. He saw Dr. Steinberg for evaluation for possible venous ablation but he did not recommend any treatment at this time. Progress of Wound: Kian is here for follow up of venous ulcers and left heel DFU. He is tolerating dressings. He saw Anna Pichardo OT on for evaluation for lymphedema and is in the process of getting compression stockings but he has not been able to tolerate conventional compression stockings previously. He is using tubigrip compression and has been elevating his legs except for during work hours where he does not have the ability to rest or elevate. She has shown him exercises which he can do as well to help control his edema and he has been compliant with these. He has continued to develop new areas even when using tubigrip compression. He has failed surepress and RADHA wraps and Circaid compression as none of them would stay in place. - Physical Exam Vital Signs Temp Pulse Resp BP 96.8 F L 81 18 133/69 H 02/10/19 14:55 01/20/19 15:54 02/10/19 14:55 02/10/19 14:55 General: Alert, Oriented x3, Cooperative, No apparent distress HEENT: Atraumatic, Normocephalic Oral: Moist Mucosa Abdomen: Obese Extremities: Edema Skin: Ulcer/ Wound Wound Measurements and Assessment WC - Nurse 1 - General Ulcer Measurement Start: 01/20/19 15:46 Freq: Status: Active Protocol: Activity Type Activity Date Activity User E-Sign Co-Sign Detail Recorded Client Recorded Date Recorded By Document 02/10/19 14:55 [facility] [id number] 02/10/19 15:11 BM 02/10/19 14:55 Wound Center Nurse 1 [Ulcer Assessment] #9- RT DELUNA -Combined with other wound No -Current Size (cm) - Length 3.1 -Current Size (cm) - Width 3.9 -Current Size (cm) - Depth 0.1 -Total Square Cm 12.09 -Photo Taken No -Epithelialization None Present -Tunneling No -Undermining/Tunneling No -Circular Undermining No -Exudate Amt Small -Exudate Type Sanguineous -Wound Margin Flat & Intact -Granulation Amt Large (67-100%) -Granulation Quality Red -Slough/Fibrin Yes -Necrosis Amt Small (1-33%) -Necrotic Tissue Type Adherent Slough -Texture (Milly-wound Skin Appearance) Scarring -Moisture (Milly-wound Skin Appearance Dry/Scaly ) -Color (Milly-wound Skin Appearance) Erythema -Temperature (Milly-wound Skin No Abnormality Appearance) (Pt Warm) -Tenderness on Palpation (Milly-wound Yes Skin Appearance) -Ulcer Cleansing Wound Cleanser -Foul Odor after Cleansing No -Anesthetic Used 5% Lidocaine Gel #8- LT LAT HEEL -Combined with other wound No -Current Size (cm) - Length 0.3 -Current Size (cm) - Width 1.1 -Current Size (cm) - Depth 0.3 -Total Square Cm 0.33 -Photo Taken No -Epithelialization None Present -Tunneling No -Undermining/Tunneling No -Circular Undermining No -Exudate Amt Medium -Exudate Type Yellow/Green -Wound Margin Flat & Intact -Granulation Amt Medium (34-66%) -Granulation Quality [place] -Slough/Fibrin Yes -Necrosis Amt Medium (34-66%) -Necrotic Tissue Type Adherent Slough -Texture (Milly-wound Skin Appearance) Callus Localized Edema Scarring -Moisture (Milly-wound Skin Appearance Maceration ) -Color (Milly-wound Skin Appearance) Palor -Temperature (Milly-wound Skin No Abnormality Appearance) (Pt Warm) -Tenderness on Palpation (Milly-wound Yes Skin Appearance) -Ulcer Cleansing Wound Cleanser -Foul Odor after Cleansing No -Anesthetic Used 5% Lidocaine Gel 5- LT LAT LEG CLUSTER -Combined with other wound No -Current Size (cm) - Length 0.1 -Current Size (cm) - Width 0.1 -Current Size (cm) - Depth 0.1 -Total Square Cm 0.01 -Epithelialization Large 67-100% -Tunneling No -Undermining/Tunneling No -Circular Undermining No -Exudate Amt None Present [Edema Assessment] -Lower Limb Edema Present Yes -Right Calf (cm) 46.7 -Right Ankle (cm) 25.6 -Left Calf (cm) 43.5 -Left Ankle (cm) 25.2 WC - Nurse 2 - General Ulcer CM Notes Start: 01/20/19 15:46 Freq: Status: Active Protocol: Activity Type Activity Date Activity User E-Sign Co-Sign Detail Recorded Client Recorded Date Recorded By Document 02/10/19 16:00 DV [id number] 02/10/19 16:06 DV 02/10/19 16:00 Wound Center Nurse 2 [Procedure/Treatment] #9- RT DELUNA -Time 16:01 -Correct Patient Yes -Correct Side, Site, Position Yes -Correct Procedure Yes -Procedure Performed Yes -Type of Procedure Debridement -Clinical Debridement Subcutaneous -Post Debridement Size (cm) - Length 3.2 -Post Debridement Size (cm) - Width 4.5 -Post Debridement Size (cm) - Depth 0.1 -Total Square Cm 14.40 -Wound/Ulcer Outcome Not Healed -Ulcer Cleansing Rinsed/ Irrigated with Saline -Foul Odor after Cleansing No -Bioengineered Tissue No -Bleeding Controlled with Pressure -Offloading No -Treatment Response Procedure Tolerated Well #8- LT LAT HEEL -Time 16:02 -Correct Patient Yes -Correct Side, Site, Position Yes -Correct Procedure Yes -Procedure Performed Yes -Type of Procedure Debridement -Clinical Debridement Subcutaneous -Post Debridement Size (cm) - Length 0.4 -Post Debridement Size (cm) - Width 1.2 -Post Debridement Size (cm) - Depth 0.5 -Total Square Cm 0.48 -Wound/Ulcer Outcome Not Healed -Ulcer Cleansing Rinsed/ Irrigated with Saline [See Physician Procedure note for Specifics] Psych/Mental Status: Normal Affect, Appropriate Debridement Note Post-Debridement Measurements/Treatment WC - Nurse 2 - General Ulcer CM Notes Start: 01/20/19 15:46 Freq: Status: Active Protocol: Activity Type Activity Date Activity User E-Sign Co-Sign Detail Recorded Client Recorded Date Recorded By Document 01/20/19 16:44 DV [id number] 01/20/19 16:50 DV Document 02/03/19 15:17 AN [id number] 02/03/19 15:52 AN Document 02/10/19 16:00 DV [id number] 02/10/19 16:06 DV 01/20/19 02/03/19 02/10/19 16:44 15:17 16:00 Wound Center Nurse 2 #9- RT DELUNA -Time 15:17 16:01 -Correct Patient Yes Yes -Correct Side, Site, Position Yes Yes -Correct Procedure Yes Yes -Procedure Performed Yes Yes -Type of Procedure Debridement Debridement -Clinical Debridement Subcutaneous Subcutaneous -Post Debridement Size (cm) - Length 3.7 3.2 -Post Debridement Size (cm) - Width 5.4 4.5 -Post Debridement Size (cm) - Depth 0.1 0.1 -Total Square Cm 19.98 14.40 -Wound/Ulcer Outcome Not Healed Not Healed -Ulcer Cleansing Rinsed/ Rinsed/ Irrigated with Irrigated with Saline Saline -Foul Odor after Cleansing No No -Bioengineered Tissue No No -Bleeding Controlled with Pressure Pressure -Offloading No No -Treatment Response Procedure Procedure Tolerated Well Tolerated Well #8- LT LAT HEEL -Time 15:17 16:02 -Correct Patient Yes Yes -Correct Side, Site, Position Yes Yes -Correct Procedure Yes Yes -Procedure Performed Yes Yes -Type of Procedure Debridement Debridement -Clinical Debridement Subcutaneous Subcutaneous -Post Debridement Size (cm) - Length 0.6 0.4 -Post Debridement Size (cm) - Width 1.1 1.2 -Post Debridement Size (cm) - Depth 0.4 0.5 -Total Square Cm 0.66 0.48 -Wound/Ulcer Outcome Not Healed Not Healed -Ulcer Cleansing Rinsed/ Irrigated with Saline #7- RT INFERIOR DELUNA CLUSTER -Time 16:45 15:18 -Correct Patient Yes Yes -Correct Side, Site, Position Yes Yes -Correct Procedure Yes -Procedure Performed Yes No -Type of Procedure Debridement -Clinical Debridement Subcutaneous -Post Debridement Size (cm) - Length 0.5 0 -Post Debridement Size (cm) - Width 1.0 0 -Post Debridement Size (cm) - Depth 0.1 0 -Total Square Cm 0.50 0 -Wound/Ulcer Outcome Not Healed Healed- Epithelialized -Ulcer Cleansing Rinsed/ Irrigated with Saline -Foul Odor after Cleansing No -Bioengineered Tissue No -Bleeding Controlled with Pressure -Offloading No -Treatment Response Procedure Tolerated Well #6- RT SUPERIOR DELUNA CLUSTER -Time 16:47 -Correct Patient Yes -Correct Side, Site, Position Yes -Correct Procedure No -Procedure Performed No -Post Debridement Size (cm) - Length 0 -Post Debridement Size (cm) - Width 0 -Post Debridement Size (cm) - Depth 0 -Total Square Cm 0 -Wound/Ulcer Outcome Healed- Epithelialized 5- LT LAT LEG CLUSTER -Time 16:48 15:19 -Correct Patient Yes Yes -Correct Side, Site, Position Yes Yes -Correct Procedure Yes Yes -Procedure Performed Yes Yes -Type of Procedure Debridement Debridement -Clinical Debridement Subcutaneous Subcutaneous -Post Debridement Size (cm) - Length 0.7 0.4 -Post Debridement Size (cm) - Width 0.4 0.1 -Post Debridement Size (cm) - Depth 0.1 0.1 -Total Square Cm 0.28 0.04 -Wound/Ulcer Outcome Not Healed Not Healed -Ulcer Cleansing Rinsed/ Rinsed/ Irrigated with Irrigated with Saline Saline -Foul Odor after Cleansing No No -Bioengineered Tissue No No -Bleeding Controlled with Pressure Pressure -Offloading No -Treatment Response Procedure Procedure Tolerated Well Tolerated Well #3 LEFT LATERAL LE -Time 16:49 -Correct Patient Yes -Correct Side, Site, Position Yes -Procedure Performed No -Post Debridement Size (cm) - Length 0 -Post Debridement Size (cm) - Width 0 -Post Debridement Size (cm) - Depth 0 -Total Square Cm 0 -Wound/Ulcer Outcome Healed- Epithelialized Pain Scale: 0-10 Numeric Is Patient Pain Free? Yes Yes Wound debrided: left lateral LE Laterality: Left No debridement was completed today - because it is healed - Additional Wound Wound debrided: right deluna cluster Laterality: Right Type of Debridement: Excisional debridement Anesthesia Used: 4% Lidocaine Solution, 5% Lidocaine Gel Depth: Down to and including healthy tissue, in the subcutaneous layer Percentage of wound debrided: 100 Instrument Used: 5mm curette Tissue Removed: yellow slough, devitalized tissue Severity: Fat Layer Exposed Amount of bleeding with debridement: Mild Bleeding Controlled with: Compression and gauze Patient tolerated procedure: Patient tolerated procedure well - Additional Wound Wound debrided: left heel Laterality: Left Wound Grade/Stage: Delgado Stage 2 Type of Debridement: Excisional debridement Anesthesia Used: 4% Lidocaine Solution, 5% Lidocaine Gel Depth: Down to and including healthy tissue, in the subcutaneous layer Percentage of wound debrided: 100 Instrument Used: 5mm curette Tissue Removed: yellow slough, devitalized tissue Severity: Fat Layer Exposed Amount of bleeding with debridement: Mild Bleeding Controlled with: Compression and gauze Patient tolerated procedure: Patient tolerated procedure well Assessment/Plan Active Problems Diabetes mellitus, insulin dependent (IDDM), uncontrolled (Chronic) Venous ulcers of both lower extremities (Chronic) Chronic venous hypertension w/ulcer and inflammation involv both sides (Chronic) Lymphedema of both lower extremities (Chronic) Ulcer of heel due to diabetes (Chronic) Assessment: nonhealing venous ulcers of b/l lower extremities. Edema b/l lower extremities. IDDM. lymphedema. DFU left heel Plan: David's ulcers were evaluated and debrided today. He will use hydrogel to his deluna and continue Promogran to his heel. Continue tubigrips for compression. Discussed decreased salt intake and weight loss as well as possibly having him do light duty which he states his job will not accomodate him. Vascular doesn't feel that he is a candidate for intervention at this time. Discussed importance of avoiding idle sitting and standing to treat his ulcers and encouraged to elevate his feet at or above the level of his heart as much as possible. He would benefit from lymphedema pumps due to his chronic venous insufficiency with recurrent ulcers and stage 2 lymphedema that have failed conservative treatment with elevation and exercises and compression bandaging. Encouraged weight loss, tight glucose control as well. He will follow up in 1 week.
[2019-02-17 15:05] VITALS: BP 140/80; PULSE 78; RESP 18; TEMP 36.1; BMI 46.2
--- NOTE | 2019-02-17 18:37 | PCM.WC.PN ---
(1) Diabetes mellitus, insulin dependent (IDDM), uncontrolled Status: Chronic Current Visit: Yes Qualifiers: Glycemic state: with hyperglycemia Code(s): E10.65 - Type 1 diabetes mellitus with hyperglycemia (2) Venous ulcers of both lower extremities Status: Chronic Current Visit: Yes Code(s): I87.2 - Venous insufficiency (chronic) (peripheral); L97.919 - Non-pressure chronic ulcer of unspecified part of right lower leg with unspecified severity; L97.929 - Non-pressure chronic ulcer of unspecified part of left lower leg with unspecified severity (3) Chronic venous hypertension w/ulcer and inflammation involv both sides Status: Chronic Current Visit: Yes Code(s): I87.333 - Chronic venous hypertension (idiopathic) with ulcer and inflammation of bilateral lower extremity; L97.919 - Non-pressure chronic ulcer of unspecified part of right lower leg with unspecified severity; L97.929 - Non-pressure chronic ulcer of unspecified part of left lower leg with unspecified severity (4) Lymphedema of both lower extremities Status: Chronic Current Visit: Yes Code(s): I89.0 - Lymphedema, not elsewhere classified (5) Ulcer of heel due to diabetes Status: Chronic Current Visit: Yes Qualifiers: Diabetes mellitus type: type 2 Laterality: left Non-pressure ulcer stage: with fat layer exposed Qualified Code(s): E11.621 - Type 2 diabetes mellitus with foot ulcer; L97.422 - Non-pressure chronic ulcer of left heel and midfoot with fat layer exposed Code(s): E11.621 - Type 2 diabetes mellitus with foot ulcer; L97.409 - Non-pressure chronic ulcer of unspecified heel and midfoot with unspecified severity Type of Wound Date of Service: 02/17/19 Chief Complaint: nonhealing ulcers of lower extremities b/l, edema, DFU left heel History of Wound: David is a 48 year old male that presents to the wound center for evaluation and treatment of nonhelaing ulcers of his lower legs that have been present for approximately 4 weeks. He states that his legs became swollen and then developed blisters which itched and broke open leaving sores. He has seen his PCP and they started him on Keflex 500 mg QID and he has been taking this for 4 weeks with minimal improvement. He has also been applying antibiotic ointment. He was also started on lasix which has helped his swelling somewhat. 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 He thinks his last A1C was in August and was 8.0%. He underwent vascular testing which showed normal arterial circulation but incompetence of veins in his lower extremities bilaterally right > left. He saw Dr. Steinberg for evaluation for possible venous ablation but he did not recommend any treatment at this time. Progress of Wound: Kina is here for follow up of venous ulcers and left heel DFU. He is tolerating dressings. He saw Anna Pichardo OT on for evaluation for lymphedema and is in the process of getting compression stockings but he has not been able to tolerate conventional compression stockings previously. He is using tubigrip compression and has been elevating his legs except for during work hours where he does not have the ability to rest or elevate. She has shown him exercises which he can do as well to help control his edema and he has been compliant with these. He has continued to develop new areas even when using tubigrip compression. He has failed surepress and RADHA wraps and Circaid compression as none of them would stay in place. - Physical Exam Vital Signs Temp Pulse Resp BP 97 F L 78 18 140/80 H 02/17/19 15:05 02/17/19 15:05 02/17/19 15:05 02/17/19 15:05 General: Alert, Oriented x3, Cooperative, No apparent distress HEENT: Atraumatic, Normocephalic Oral: Moist Mucosa Neck: Supple Abdomen: Obese Extremities: Edema Skin: Ulcer/ Wound Wound Measurements and Assessment WC - Nurse 1 - General Ulcer Measurement Start: 01/20/19 15:46 Freq: Status: Active Protocol: Activity Type Activity Date Activity User E-Sign Co-Sign Detail Recorded Client Recorded Date Recorded By Document 02/17/19 15:05 RB [id number] 02/17/19 15:22 RB 02/17/19 15:05 Wound Center Nurse 1 [Ulcer Assessment] #9- RT DELUNA -Combined with other wound No -Current Size (cm) - Length 2.2 -Current Size (cm) - Width 1.5 -Current Size (cm) - Depth 0.1 -Total Square Cm 3.30 -Tunneling No -Undermining/Tunneling No -Circular Undermining No -Exudate Amt Small -Exudate Type Serosanguineous -Wound Margin Distinct, Outline Attached -Granulation Amt Large (67-100%) -Granulation Quality [place] Red -Slough/Fibrin Yes -Necrosis Amt Small (1-33%) -Necrotic Tissue Type Adherent Slough -Structure Exposed N/A -Texture (Milly-wound Skin Appearance) Assessed -Moisture (Milly-wound Skin Appearance Assessed ) -Color (Milly-wound Skin Appearance) Assessed -Temperature (Milly-wound Skin No Abnormality Appearance) (Pt Warm) -Tenderness on Palpation (Milly-wound No Skin Appearance) -Ulcer Cleansing Wound Cleanser -Foul Odor after Cleansing No -Anesthetic Used 5% Lidocaine Gel #8- LT LAT HEEL -Combined with other wound No -Current Size (cm) - Length 0.9 -Current Size (cm) - Width 1.2 -Current Size (cm) - Depth 0.3 -Total Square Cm 1.08 -Tunneling No -Undermining/Tunneling No -Circular Undermining No -Exudate Amt Small -Exudate Type Serosanguineous -Wound Margin Distinct, Outline Attached -Granulation Amt Large (67-100%) -Granulation Quality [place] Red -Slough/Fibrin Yes -Necrosis Amt Small (1-33%) -Necrotic Tissue Type Adherent Slough -Structure Exposed N/A -Texture (Milly-wound Skin Appearance) Assessed Callus -Moisture (Milly-wound Skin Appearance Assessed ) Maceration -Color (Milly-wound Skin Appearance) Assessed -Temperature (Milly-wound Skin No Abnormality Appearance) (Pt Warm) -Tenderness on Palpation (Milly-wound No Skin Appearance) -Ulcer Cleansing Wound Cleanser -Foul Odor after Cleansing No -Anesthetic Used 5% Lidocaine Gel [Edema Assessment] -Lower Limb Edema Present Yes -Right Calf (cm) 45.8 -Right Ankle (cm) 25.2 -Point of measurement (cm from the 42.5 medial instep) -Point of Measurement (cm from the 25.5 medial instep) WC - Nurse 2 - General Ulcer CM Notes Start: 01/20/19 15:46 Freq: Status: Active Protocol: Activity Type Activity Date Activity User E-Sign Co-Sign Detail Recorded Client Recorded Date Recorded By Document 02/17/19 16:30 DV [id number] 02/17/19 16:35 DV 02/17/19 16:30 Wound Center Nurse 2 [Procedure/Treatment] #9- RT DELUNA -Time 16:31 -Correct Patient Yes -Correct Side, Site, Position Yes -Correct Procedure Yes -Procedure Performed Yes -Type of Procedure Debridement -Clinical Debridement Subcutaneous -Post Debridement Size (cm) - Length 2.4 -Post Debridement Size (cm) - Width 2.8 -Post Debridement Size (cm) - Depth 0.1 -Total Square Cm 6.72 -Wound/Ulcer Outcome Not Healed -Ulcer Cleansing Rinsed/ Irrigated with Saline -Foul Odor after Cleansing No -Bioengineered Tissue No -Bleeding Controlled with Pressure -Offloading No -Treatment Response Procedure Tolerated Well #8- LT LAT HEEL -Time 16:31 -Correct Patient Yes -Correct Side, Site, Position Yes -Correct Procedure Yes -Procedure Performed Yes -Type of Procedure Debridement -Clinical Debridement Subcutaneous -Post Debridement Size (cm) - Length 0.4 -Post Debridement Size (cm) - Width 1.2 -Post Debridement Size (cm) - Depth 0.2 -Total Square Cm 0.48 -Wound/Ulcer Outcome Not Healed -Ulcer Cleansing Rinsed/ Irrigated with Saline -Foul Odor after Cleansing No -Bioengineered Tissue No -Bleeding Controlled with Pressure -Offloading No -Type of Offloading Surgical Shoe -Treatment Response Procedure Tolerated Well [See Physician Procedure note for Specifics] Pain Scale: 0-10 Numeric [Pain] -Is Patient Pain Free? Yes Psych/Mental Status: Normal Affect, Appropriate Debridement Note Post-Debridement Measurements/Treatment WC - Nurse 2 - General Ulcer CM Notes Start: 01/20/19 15:46 Freq: Status: Active Protocol: Activity Type Activity Date Activity User E-Sign Co-Sign Detail Recorded Client Recorded Date Recorded By Document 01/20/19 16:44 DV [id number] 01/20/19 16:50 DV Document 02/03/19 15:17 AN [id number] 02/03/19 15:52 AN Document 02/10/19 16:00 DV [id number] 02/10/19 16:06 DV Document 02/17/19 16:30 DV [id number] 02/17/19 16:35 DV 01/20/19 02/03/19 02/10/19 16:44 15:17 16:00 Wound Center Nurse 2 #9- RT DELUNA -Time 15:17 16:01 -Correct Patient Yes Yes -Correct Side, Site, Position Yes Yes -Correct Procedure Yes Yes -Procedure Performed Yes Yes -Type of Procedure Debridement Debridement -Clinical Debridement Subcutaneous Subcutaneous -Post Debridement Size (cm) - Length 3.7 3.2 -Post Debridement Size (cm) - Width 5.4 4.5 -Post Debridement Size (cm) - Depth 0.1 0.1 -Total Square Cm 19.98 14.40 -Wound/Ulcer Outcome Not Healed Not Healed -Ulcer Cleansing Rinsed/ Rinsed/ Irrigated with Irrigated with Saline Saline -Foul Odor after Cleansing No No -Bioengineered Tissue No No -Bleeding Controlled with Pressure Pressure -Offloading No No -Treatment Response Procedure Procedure Tolerated Well Tolerated Well #8- LT LAT HEEL -Time 15:17 16:02 -Correct Patient Yes Yes -Correct Side, Site, Position Yes Yes -Correct Procedure Yes Yes -Procedure Performed Yes Yes -Type of Procedure Debridement Debridement -Clinical Debridement Subcutaneous Subcutaneous -Post Debridement Size (cm) - Length 0.6 0.4 -Post Debridement Size (cm) - Width 1.1 1.2 -Post Debridement Size (cm) - Depth 0.4 0.5 -Total Square Cm 0.66 0.48 -Wound/Ulcer Outcome Not Healed Not Healed -Ulcer Cleansing Rinsed/ Irrigated with Saline -Foul Odor after Cleansing -Bioengineered Tissue -Bleeding Controlled with -Offloading -Type of Offloading -Treatment Response #7- RT INFERIOR DELUNA CLUSTER -Time 16:45 15:18 -Correct Patient Yes Yes -Correct Side, Site, Position Yes Yes -Correct Procedure Yes -Procedure Performed Yes No -Type of Procedure Debridement -Clinical Debridement Subcutaneous -Post Debridement Size (cm) - Length 0.5 0 -Post Debridement Size (cm) - Width 1.0 0 -Post Debridement Size (cm) - Depth 0.1 0 -Total Square Cm 0.50 0 -Wound/Ulcer Outcome Not Healed Healed- Epithelialized -Ulcer Cleansing Rinsed/ Irrigated with Saline -Foul Odor after Cleansing No -Bioengineered Tissue No -Bleeding Controlled with Pressure -Offloading No -Treatment Response Procedure Tolerated Well #6- RT SUPERIOR DELUNA CLUSTER -Time 16:47 -Correct Patient Yes -Correct Side, Site, Position Yes -Correct Procedure No -Procedure Performed No -Post Debridement Size (cm) - Length 0 -Post Debridement Size (cm) - Width 0 -Post Debridement Size (cm) - Depth 0 -Total Square Cm 0 -Wound/Ulcer Outcome Healed- Epithelialized 5- LT LAT LEG CLUSTER -Time 16:48 15:19 -Correct Patient Yes Yes -Correct Side, Site, Position Yes Yes -Correct Procedure Yes Yes -Procedure Performed Yes Yes -Type of Procedure Debridement Debridement -Clinical Debridement Subcutaneous Subcutaneous -Post Debridement Size (cm) - Length 0.7 0.4 -Post Debridement Size (cm) - Width 0.4 0.1 -Post Debridement Size (cm) - Depth 0.1 0.1 -Total Square Cm 0.28 0.04 -Wound/Ulcer Outcome Not Healed Not Healed -Ulcer Cleansing Rinsed/ Rinsed/ Irrigated with Irrigated with Saline Saline -Foul Odor after Cleansing No No -Bioengineered Tissue No No -Bleeding Controlled with Pressure Pressure -Offloading No -Treatment Response Procedure Procedure Tolerated Well Tolerated Well #3 LEFT LATERAL LE -Time 16:49 -Correct Patient Yes -Correct Side, Site, Position Yes -Procedure Performed No -Post Debridement Size (cm) - Length 0 -Post Debridement Size (cm) - Width 0 -Post Debridement Size (cm) - Depth 0 -Total Square Cm 0 -Wound/Ulcer Outcome Healed- Epithelialized Pain Scale: 0-10 Numeric Is Patient Pain Free? Yes Yes 02/17/19 16:30 Wound Center Nurse 2 #9- RT DELUNA -Time 16:31 -Correct Patient Yes -Correct Side, Site, Position Yes -Correct Procedure Yes -Procedure Performed Yes -Type of Procedure Debridement -Clinical Debridement Subcutaneous -Post Debridement Size (cm) - Length 2.4 -Post Debridement Size (cm) - Width 2.8 -Post Debridement Size (cm) - Depth 0.1 -Total Square Cm 6.72 -Wound/Ulcer Outcome Not Healed -Ulcer Cleansing Rinsed/ Irrigated with Saline -Foul Odor after Cleansing No -Bioengineered Tissue No -Bleeding Controlled with Pressure -Offloading No -Treatment Response Procedure Tolerated Well #8- LT LAT HEEL -Time 16:31 -Correct Patient Yes -Correct Side, Site, Position Yes -Correct Procedure Yes -Procedure Performed Yes -Type of Procedure Debridement -Clinical Debridement Subcutaneous -Post Debridement Size (cm) - Length 0.4 -Post Debridement Size (cm) - Width 1.2 -Post Debridement Size (cm) - Depth 0.2 -Total Square Cm 0.48 -Wound/Ulcer Outcome Not Healed -Ulcer Cleansing Rinsed/ Irrigated with Saline -Foul Odor after Cleansing No -Bioengineered Tissue No -Bleeding Controlled with Pressure -Offloading No -Type of Offloading Surgical Shoe -Treatment Response Procedure Tolerated Well #7- RT INFERIOR DELUNA CLUSTER -Time -Correct Patient -Correct Side, Site, Position -Correct Procedure -Procedure Performed -Type of Procedure -Clinical Debridement -Post Debridement Size (cm) - Length -Post Debridement Size (cm) - Width -Post Debridement Size (cm) - Depth -Total Square Cm -Wound/Ulcer Outcome -Ulcer Cleansing -Foul Odor after Cleansing -Bioengineered Tissue -Bleeding Controlled with -Offloading -Treatment Response #6- RT SUPERIOR DELUNA CLUSTER -Time -Correct Patient -Correct Side, Site, Position -Correct Procedure -Procedure Performed -Post Debridement Size (cm) - Length -Post Debridement Size (cm) - Width -Post Debridement Size (cm) - Depth -Total Square Cm -Wound/Ulcer Outcome 5- LT LAT LEG CLUSTER -Time -Correct Patient -Correct Side, Site, Position -Correct Procedure -Procedure Performed -Type of Procedure -Clinical Debridement -Post Debridement Size (cm) - Length -Post Debridement Size (cm) - Width -Post Debridement Size (cm) - Depth -Total Square Cm -Wound/Ulcer Outcome -Ulcer Cleansing -Foul Odor after Cleansing -Bioengineered Tissue -Bleeding Controlled with -Offloading -Treatment Response #3 LEFT LATERAL LE -Time -Correct Patient -Correct Side, Site, Position -Procedure Performed -Post Debridement Size (cm) - Length -Post Debridement Size (cm) - Width -Post Debridement Size (cm) - Depth -Total Square Cm -Wound/Ulcer Outcome Pain Scale: 0-10 Numeric Is Patient Pain Free? Yes Wound debrided: right deluna Laterality: Right Type of Debridement: Excisional debridement Anesthesia Used: 4% Lidocaine Solution, 5% Lidocaine Gel Depth: Down to and including healthy tissue, in the subcutaneous layer Percentage of wound debrided: 100 Instrument Used: 5mm curette Tissue Removed: yellow slough, devitalized tissue Severity: Fat Layer Exposed Amount of bleeding with debridement: Mild Bleeding Controlled with: Compression and gauze Patient tolerated procedure well - Additional Wound Wound debrided: left lateral heel Laterality: Left Wound Grade/Stage: Delgado grade 2 Type of Debridement: Excisional debridement Anesthesia Used: 4% Lidocaine Solution, 5% Lidocaine Gel Depth: Down to and including healthy tissue, in the subcutaneous layer Percentage of wound debrided: 100 Instrument Used: 5mm curette Tissue Removed: yellow slough, devitalized tissue Severity: Fat Layer Exposed Amount of bleeding with debridement: Mild Bleeding Controlled with: Compression and gauze Patient tolerated procedure: Patient tolerated procedure well Assessment/Plan Active Problems Diabetes mellitus, insulin dependent (IDDM), uncontrolled (Chronic) Venous ulcers of both lower extremities (Chronic) Chronic venous hypertension w/ulcer and inflammation involv both sides (Chronic) Lymphedema of both lower extremities (Chronic) Ulcer of heel due to diabetes (Chronic) Assessment: nonhealing venous ulcers of b/l lower extremities. Edema b/l lower extremities. IDDM. lymphedema. DFU left heel Plan: David's ulcers were evaluated and debrided today. He will use hydrogel to his deluna and continue Promogran to his heel. Continue tubigrips for compression. Discussed decreased salt intake and weight loss as well as possibly having him do light duty which he states his job will not accomodate him. Vascular doesn't feel that he is a candidate for intervention at this time. Discussed importance of avoiding idle sitting and standing to treat his ulcers and encouraged to elevate his feet at or above the level of his heart as much as possible. He would benefit from lymphedema pumps due to his chronic venous insufficiency with recurrent ulcers and stage 2 lymphedema that have failed conservative treatment with elevation and exercises and compression bandaging. Encouraged weight loss, tight glucose control as well. He will follow up in 1 week.
== END 2019-02-19 23:59 ==
LOC: WC 15:00
PROVIDERS: Family Provider Family Medicine; PCP Family Medicine; Referring Provider Family Medicine; Visit Provider Family Medicine
DX: E10.622 Type 1 diabetes mellitus with other skin ulcer (principal); I87.333 Chronic venous hypertension (idiopathic) with ulcer and inflammation of bilateral lower extremity; E10.65 Type 1 diabetes mellitus with hyperglycemia; L97.812 Non-pressure chronic ulcer of other part of right lower leg with fat layer exposed; L97.822 Non-pressure chronic ulcer of other part of left lower leg with fat layer exposed; I89.0 Lymphedema, not elsewhere classified
CPT/HCPCS: 11042; 87070; 87075; 87077; 87186; 87205

== ENCOUNTER 2019-03-10 14:30 | Outpatient (RCR) | payer BC, SELFPAY ==
[2019-02-20 00:57] VITALS: BP 140/80; PULSE 78; RESP 18; TEMP 36.1
[2019-02-24 14:26] VITALS: BP 131/64; PULSE 87; RESP 18; TEMP 36.3; BMI 46.2
--- NOTE | 2019-02-24 19:17 | PCM.WC.PN ---
(1) Venous ulcer of right lower extremity with varicose veins Status: Chronic Current Visit: Yes Code(s): I83.019 - Varicose veins of right lower extremity with ulcer of unspecified site; L97.919 - Non-pressure chronic ulcer of unspecified part of right lower leg with unspecified severity (2) Diabetes mellitus, insulin dependent (IDDM), uncontrolled Status: Chronic Current Visit: Yes Qualifiers: Glycemic state: with hyperglycemia Code(s): E10.65 - Type 1 diabetes mellitus with hyperglycemia (3) PAD (peripheral artery disease) Status: Chronic Current Visit: Yes Code(s): I73.9 - Peripheral vascular disease, unspecified (4) Ulcer of heel due to diabetes Status: Chronic Current Visit: Yes Qualifiers: Diabetes mellitus type: type 2 Laterality: left Non-pressure ulcer stage: with fat layer exposed Qualified Code(s): E11.621 - Type 2 diabetes mellitus with foot ulcer; L97.422 - Non-pressure chronic ulcer of left heel and midfoot with fat layer exposed Code(s): E11.621 - Type 2 diabetes mellitus with foot ulcer; L97.409 - Non-pressure chronic ulcer of unspecified heel and midfoot with unspecified severity Type of Wound Date of Service: 02/24/19 Chief Complaint: nonhealing ulcers of lower extremities b/l, edema, DFU left heel History of Wound: David is a 48 year old male that presents to the wound center for evaluation and treatment of nonhelaing ulcers of his lower legs that have been present for approximately 4 weeks. He states that his legs became swollen and then developed blisters which itched and broke open leaving sores. He has seen his PCP and they started him on Keflex 500 mg QID and he has been taking this for 4 weeks with minimal improvement. He has also been applying antibiotic ointment. He was also started on lasix which has helped his swelling somewhat. 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 He thinks his last A1C was in August and was 8.0%. He underwent vascular testing which showed normal arterial circulation but incompetence of veins in his lower extremities bilaterally right > left. He saw Dr. Steinberg for evaluation for possible venous ablation but he did not recommend any treatment at this time. Progress of Wound: Kian is here for follow up of venous ulcers and left heel DFU. He is tolerating dressings and shows improvement of his ulcers. He saw Anna Pichardo OT on for evaluation for lymphedema and is in the process of getting compression stockings but he has not been able to tolerate conventional compression stockings previously. He is using tubigrip compression and has been elevating his legs except for during work hours where he does not have the ability to rest or elevate. She has shown him exercises which he can do as well to help control his edema and he has been compliant with these. He has continued to develop new areas even when using tubigrip compression. He has failed surepress and RADHA wraps and Circaid compression as none of them would stay in place. - Physical Exam Vital Signs Temp Pulse Resp BP 97.3 F L 87 18 131/64 H 02/24/19 14:26 02/24/19 14:26 02/24/19 14:26 02/24/19 14:26 General: Alert, Oriented x3, Cooperative, No apparent distress HEENT: Atraumatic, Normocephalic Oral: Moist Mucosa Abdomen: Obese Extremities: Edema Skin: Ulcer/ Wound Wound Measurements and Assessment WC - Nurse 1 - General Ulcer Measurement Start: 02/24/19 14:26 Freq: Status: Active Protocol: Activity Type Activity Date Activity User E-Sign Co-Sign Detail Recorded Client Recorded Date Recorded By Document 02/24/19 14:26 [facility] [id number] 02/24/19 14:32 [facility] 02/24/19 14:26 Wound Center Nurse 1 [Ulcer Assessment] #9- RT DELUNA -Combined with other wound No -Current Size (cm) - Length 0.1 -Current Size (cm) - Width 0.1 -Current Size (cm) - Depth 0.1 -Total Square Cm 0.01 -Epithelialization Large 67-100% -Tunneling No -Undermining/Tunneling No -Circular Undermining No -Texture (Milly-wound Skin Appearance) Assessed -Moisture (Milly-wound Skin Appearance Assessed ) Dry/Scaly -Color (Milly-wound Skin Appearance) Assessed -Temperature (Milly-wound Skin No Abnormality Appearance) (Pt Warm) -Tenderness on Palpation (Milly-wound No Skin Appearance) -Ulcer Cleansing Rinsed/ Irrigated with Saline -Foul Odor after Cleansing No -Anesthetic Used 5% Lidocaine Gel #8- LT LAT HEEL -Combined with other wound No -Current Size (cm) - Length 0.3 -Current Size (cm) - Width 0.8 -Current Size (cm) - Depth 0.3 -Total Square Cm 0.24 -Photo Taken No -Epithelialization None Present -Tunneling No -Undermining/Tunneling No -Circular Undermining No -Exudate Amt Small -Exudate Type Serosanguineous -Wound Margin Thickened -Granulation Amt Large (67-100%) -Granulation Quality [place] -Slough/Fibrin Yes -Necrosis Amt Small (1-33%) -Necrotic Tissue Type Adherent Slough -Texture (Milly-wound Skin Appearance) Assessed Callus Scarring -Moisture (Milly-wound Skin Appearance Assessed ) Maceration Dry/Scaly -Color (Milly-wound Skin Appearance) Assessed Palor -Temperature (Milly-wound Skin No Abnormality Appearance) (Pt Warm) -Tenderness on Palpation (Milly-wound No Skin Appearance) -Ulcer Cleansing Rinsed/ Irrigated with Saline -Foul Odor after Cleansing No -Anesthetic Used 5% Lidocaine Gel [Edema Assessment] -Lower Limb Edema Present Yes -Right Calf (cm) 46.5 -Right Ankle (cm) 27 -Left Calf (cm) 44 -Left Ankle (cm) 26.5 WC - Nurse 2 - General Ulcer CM Notes Start: 02/24/19 14:26 Freq: Status: Active Protocol: Activity Type Activity Date Activity User E-Sign Co-Sign Detail Recorded Client Recorded Date Recorded By Document 02/24/19 16:05 DV [id number] 02/24/19 16:12 DV 02/24/19 16:05 Wound Center Nurse 2 [Procedure/Treatment] #9- RT DELUNA -Time 16:06 -Correct Patient Yes -Correct Side, Site, Position Yes -Correct Procedure Yes -Procedure Performed Yes -Type of Procedure Debridement -Clinical Debridement Subcutaneous -Post Debridement Size (cm) - Length 0.3 -Post Debridement Size (cm) - Width 0.4 -Post Debridement Size (cm) - Depth 0.1 -Total Square Cm 0.12 -Wound/Ulcer Outcome Not Healed -Ulcer Cleansing Rinsed/ Irrigated with Saline -Foul Odor after Cleansing No -Bioengineered Tissue No -Bleeding Controlled with Pressure -Offloading No -Treatment Response Procedure Tolerated Well #8- LT LAT HEEL -Time 16:06 -Correct Patient Yes -Correct Side, Site, Position Yes -Correct Procedure Yes -Procedure Performed Yes -Type of Procedure Debridement -Clinical Debridement Subcutaneous -Post Debridement Size (cm) - Length 0.6 -Post Debridement Size (cm) - Width 1.0 -Post Debridement Size (cm) - Depth 0.2 -Total Square Cm 0.60 -Wound/Ulcer Outcome Not Healed -Ulcer Cleansing Rinsed/ Irrigated with Saline -Foul Odor after Cleansing No -Bioengineered Tissue No -Bleeding Controlled with Pressure -Offloading No -Treatment Response Procedure Tolerated Well [See Physician Procedure note for Specifics] Pain Scale: 0-10 Numeric [Pain] -Is Patient Pain Free? Yes Psych/Mental Status: Normal Affect, Appropriate Debridement Note Post-Debridement Measurements/Treatment WC - Nurse 2 - General Ulcer CM Notes Start: 02/24/19 14:26 Freq: Status: Active Protocol: Activity Type Activity Date Activity User E-Sign Co-Sign Detail Recorded Client Recorded Date Recorded By Document 02/24/19 16:05 DV [id number] 02/24/19 16:12 DV 02/24/19 16:05 Wound Center Nurse 2 #9- RT DELUNA -Time 16:06 -Correct Patient Yes -Correct Side, Site, Position Yes -Correct Procedure Yes -Procedure Performed Yes -Type of Procedure Debridement -Clinical Debridement Subcutaneous -Post Debridement Size (cm) - Length 0.3 -Post Debridement Size (cm) - Width 0.4 -Post Debridement Size (cm) - Depth 0.1 -Total Square Cm 0.12 -Wound/Ulcer Outcome Not Healed -Ulcer Cleansing Rinsed/ Irrigated with Saline -Foul Odor after Cleansing No -Bioengineered Tissue No -Bleeding Controlled with Pressure -Offloading No -Treatment Response Procedure Tolerated Well #8- LT LAT HEEL -Time 16:06 -Correct Patient Yes -Correct Side, Site, Position Yes -Correct Procedure Yes -Procedure Performed Yes -Type of Procedure Debridement -Clinical Debridement Subcutaneous -Post Debridement Size (cm) - Length 0.6 -Post Debridement Size (cm) - Width 1.0 -Post Debridement Size (cm) - Depth 0.2 -Total Square Cm 0.60 -Wound/Ulcer Outcome Not Healed -Ulcer Cleansing Rinsed/ Irrigated with Saline -Foul Odor after Cleansing No -Bioengineered Tissue No -Bleeding Controlled with Pressure -Offloading No -Treatment Response Procedure Tolerated Well Pain Scale: 0-10 Numeric Is Patient Pain Free? Yes Wound debrided: right deluna Laterality: Right Type of Debridement: Excisional debridement Anesthesia Used: 4% Lidocaine Solution, 5% Lidocaine Gel Depth: Down to and including healthy tissue, in the subcutaneous layer Percentage of wound debrided: 100 Instrument Used: 5mm curette Tissue Removed: yellow slough, devitalized tissue Severity: Fat Layer Exposed Amount of bleeding with debridement: Mild Bleeding Controlled with: Compression and gauze Patient tolerated procedure well - Additional Wound Wound debrided: left lateral heel Laterality: Left Wound Grade/Stage: Delgado grade 2 Type of Debridement: Excisional debridement Anesthesia Used: 4% Lidocaine Solution, 5% Lidocaine Gel Depth: Down to and including healthy tissue, in the subcutaneous layer Percentage of wound debrided: 100 Instrument Used: 5mm curette Tissue Removed: yellow slough, devitalized tissue Severity: Fat Layer Exposed Amount of bleeding with debridement: Mild Bleeding Controlled with: Compression and gauze Patient tolerated procedure: Patient tolerated procedure well Assessment/Plan Active Problems Diabetes mellitus, insulin dependent (IDDM), uncontrolled (Chronic) PAD (peripheral artery disease) (Chronic) Ulcer of heel due to diabetes (Chronic) Venous ulcer of right lower extremity with varicose veins (Chronic) Assessment: nonhealing venous ulcers of b/l lower extremities. Edema b/l lower extremities. IDDM. lymphedema. DFU left heel Plan: David's ulcers were evaluated and debrided today. He will continue to use hydrogel to his deluna and continue Promogran to his heel. Continue tubigrips for compression. Discussed decreased salt intake and weight loss as well as possibly having him do light duty which he states his job will not accomodate him. Vascular doesn't feel that he is a candidate for intervention at this time. Discussed importance of avoiding idle sitting and standing to treat his ulcers and encouraged to elevate his feet at or above the level of his heart as much as possible. He would benefit from lymphedema pumps due to his chronic venous insufficiency with recurrent ulcers and stage 2 lymphedema that have failed conservative treatment with elevation and exercises and compression bandaging. Encouraged weight loss, tight glucose control as well. He will follow up in 2 weeks.
--- NOTE | 2019-02-24 19:21 | PN.PCM_ITS ---
(1) Venous ulcer of right lower extremity with varicose veins Status: Chronic Current Visit: Yes Code(s): I83.019 - Varicose veins of right lower extremity with ulcer of unspecified site; L97.919 - Non-pressure chronic ulcer of unspecified part of right lower leg with unspecified severity (2) Diabetes mellitus, insulin dependent (IDDM), uncontrolled Status: Chronic Current Visit: Yes Qualifiers: Glycemic state: with hyperglycemia Code(s): E10.65 - Type 1 diabetes mellitus with hyperglycemia (3) PAD (peripheral artery disease) Status: Chronic Current Visit: Yes Code(s): I73.9 - Peripheral vascular disease, unspecified (4) Ulcer of heel due to diabetes Status: Chronic Current Visit: Yes Qualifiers: Diabetes mellitus type: type 2 Laterality: left Non-pressure ulcer stage: with fat layer exposed Qualified Code(s): E11.621 - Type 2 diabetes mellitus with foot ulcer; L97.422 - Non-pressure chronic ulcer of left heel and midfoot with fat layer exposed Code(s): E11.621 - Type 2 diabetes mellitus with foot ulcer; L97.409 - Non- pressure chronic ulcer of unspecified heel and midfoot with unspecified severity Type of Wound Date of Service: 02/24/19 Chief Complaint: nonhealing ulcers of lower extremities b/l, edema, DFU left heel History of Wound: David is a 48 year old male that presents to the wound center for evaluation and treatment of nonhelaing ulcers of his lower legs that have been present for approximately 4 weeks. He states that his legs became swollen and then developed blisters which itched and broke open leaving sores. He has seen his PCP and they started him on Keflex 500 mg QID and he has been taking this for 4 weeks with minimal improvement. He has also been applying antibiotic ointment. He was also started on lasix which has helped his swelling somewhat. He works at the [employer] and he is on his feet all the time there. He thinks his last A1C was in August and was 8.0%. He underwent vascular testing which showed normal arterial circulation but incompetence of veins in his lower extremities bilaterally right > left. He saw Dr. Steinberg for evaluation for possible venous ablation but he did not recommend any treatment at this time. Progress of Wound: Kian is here for follow up of venous ulcers and left heel DFU. He is tolerating dressings and shows improvement of his ulcers. He saw Anna Pichardo OT on for evaluation for lymphedema and is in the process of getting compression stockings but he has not been able to tolerate conventional compression stockings previously. He is using tubigrip compression and has been elevating his legs except for during work hours where he does not have the ability to rest or elevate. She has shown him exercises which he can do as well to help control his edema and he has been compliant with these. He has continued to develop new areas even when using tubigrip compression. He has failed surepress and RADHA wraps and Circaid compression as none of them would stay in place. - Physical Exam Vital Signs Temp Pulse Resp BP 97.3 F L 87 18 131/64 H 02/24/19 14:26 02/24/19 14:26 02/24/19 14:26 02/24/19 14:26 General: Alert, Oriented x3, Cooperative, No apparent distress HEENT: Atraumatic, Normocephalic Oral: Moist Mucosa Abdomen: Obese Extremities: Edema Skin: Ulcer/ Wound Wound Measurements and Assessment WC - Nurse 1 - General Ulcer Measurement Start: 02/24/19 14:26 Freq: Status: Active Protocol: Activity Type Activity Date Activity User E-Sign Co-Sign Detail Recorded Client Recorded Date Recorded By Document 02/24/19 14:26 [facility] [id number] 02/24/19 14:32 [facility] 02/24/19 14:26 Wound Center Nurse 1 [Ulcer Assessment] #9- RT DELUNA -Combined with other wound No -Current Size (cm) - Length 0.1 -Current Size (cm) - Width 0.1 -Current Size (cm) - Depth 0.1 -Total Square Cm 0.01 -Epithelialization Large 67-100% -Tunneling No -Undermining/Tunneling No -Circular Undermining No -Texture (Milly-wound Skin Appearance) Assessed -Moisture (Milly-wound Skin Appearance Assessed ) Dry/Scaly -Color (Milly-wound Skin Appearance) Assessed -Temperature (Milly-wound Skin No Abnormality Appearance) (Pt Warm) -Tenderness on Palpation (Milly-wound No Skin Appearance) -Ulcer Cleansing Rinsed/ Irrigated with Saline -Foul Odor after Cleansing No -Anesthetic Used 5% Lidocaine Gel #8- LT LAT HEEL -Combined with other wound No -Current Size (cm) - Length 0.3 -Current Size (cm) - Width 0.8 -Current Size (cm) - Depth 0.3 -Total Square Cm 0.24 -Photo Taken No -Epithelialization None Present -Tunneling No -Undermining/Tunneling No -Circular Undermining No -Exudate Amt Small -Exudate Type Serosanguineous -Wound Margin Thickened -Granulation Amt Large (67-100%) -Granulation Quality [place] -Slough/Fibrin Yes -Necrosis Amt Small (1-33%) -Necrotic Tissue Type Adherent Slough -Texture (Milly-wound Skin Appearance) Assessed Callus Scarring -Moisture (Milly-wound Skin Appearance Assessed ) Maceration Dry/Scaly -Color (Milly-wound Skin Appearance) Assessed Palor -Temperature (Milly-wound Skin No Abnormality Appearance) (Pt Warm) -Tenderness on Palpation (Milly-wound No Skin Appearance) -Ulcer Cleansing Rinsed/ Irrigated with Saline -Foul Odor after Cleansing No -Anesthetic Used 5% Lidocaine Gel [Edema Assessment] -Lower Limb Edema Present Yes -Right Calf (cm) 46.5 -Right Ankle (cm) 27 -Left Calf (cm) 44 -Left Ankle (cm) 26.5 WC - Nurse 2 - General Ulcer CM Notes Start: 02/24/19 14:26 Freq: Status: Active Protocol: Activity Type Activity Date Activity User E-Sign Co-Sign Detail Recorded Client Recorded Date Recorded By Document 02/24/19 16:05 DV [id number] 02/24/19 16:12 DV 02/24/19 16:05 Wound Center Nurse 2 [Procedure/Treatment] #9- RT DELUNA -Time 16:06 -Correct Patient Yes -Correct Side, Site, Position Yes -Correct Procedure Yes -Procedure Performed Yes -Type of Procedure Debridement -Clinical Debridement Subcutaneous -Post Debridement Size (cm) - Length 0.3 -Post Debridement Size (cm) - Width 0.4 -Post Debridement Size (cm) - Depth 0.1 -Total Square Cm 0.12 -Wound/Ulcer Outcome Not Healed -Ulcer Cleansing Rinsed/ Irrigated with Saline -Foul Odor after Cleansing No -Bioengineered Tissue No -Bleeding Controlled with Pressure -Offloading No -Treatment Response Procedure Tolerated Well #8- LT LAT HEEL -Time 16:06 -Correct Patient Yes -Correct Side, Site, Position Yes -Correct Procedure Yes -Procedure Performed Yes -Type of Procedure Debridement -Clinical Debridement Subcutaneous -Post Debridement Size (cm) - Length 0.6 -Post Debridement Size (cm) - Width 1.0 -Post Debridement Size (cm) - Depth 0.2 -Total Square Cm 0.60 -Wound/Ulcer Outcome Not Healed -Ulcer Cleansing Rinsed/ Irrigated with Saline -Foul Odor after Cleansing No -Bioengineered Tissue No -Bleeding Controlled with Pressure -Offloading No -Treatment Response Procedure Tolerated Well [See Physician Procedure note for Specifics] Pain Scale: 0-10 Numeric [Pain] -Is Patient Pain Free? Yes Psych/Mental Status: Normal Affect, Appropriate Debridement Note Post-Debridement Measurements/Treatment WC - Nurse 2 - General Ulcer CM Notes Start: 02/24/19 14:26 Freq: Status: Active Protocol: Activity Type Activity Date Activity User E-Sign Co-Sign Detail Recorded Client Recorded Date Recorded By Document 02/24/19 16:05 DV [id number] 02/24/19 16:12 DV 02/24/19 16:05 Wound Center Nurse 2 #9- RT DELUNA -Time 16:06 -Correct Patient Yes -Correct Side, Site, Position Yes -Correct Procedure Yes -Procedure Performed Yes -Type of Procedure Debridement -Clinical Debridement Subcutaneous -Post Debridement Size (cm) - Length 0.3 -Post Debridement Size (cm) - Width 0.4 -Post Debridement Size (cm) - Depth 0.1 -Total Square Cm 0.12 -Wound/Ulcer Outcome Not Healed -Ulcer Cleansing Rinsed/ Irrigated with Saline -Foul Odor after Cleansing No -Bioengineered Tissue No -Bleeding Controlled with Pressure -Offloading No -Treatment Response Procedure Tolerated Well #8- LT LAT HEEL -Time 16:06 -Correct Patient Yes -Correct Side, Site, Position Yes -Correct Procedure Yes -Procedure Performed Yes -Type of Procedure Debridement -Clinical Debridement Subcutaneous -Post Debridement Size (cm) - Length 0.6 -Post Debridement Size (cm) - Width 1.0 -Post Debridement Size (cm) - Depth 0.2 -Total Square Cm 0.60 -Wound/Ulcer Outcome Not Healed -Ulcer Cleansing Rinsed/ Irrigated with Saline -Foul Odor after Cleansing No -Bioengineered Tissue No -Bleeding Controlled with Pressure -Offloading No -Treatment Response Procedure Tolerated Well Pain Scale: 0-10 Numeric Is Patient Pain Free? Yes Wound debrided: right deluna Laterality: Right Type of Debridement: Excisional debridement Anesthesia Used: 4% Lidocaine Solution, 5% Lidocaine Gel Depth: Down to and including healthy tissue, in the subcutaneous layer Percentage of wound debrided: 100 Instrument Used: 5mm curette Tissue Removed: yellow slough, devitalized tissue Severity: Fat Layer Exposed Amount of bleeding with debridement: Mild Bleeding Controlled with: Compression and gauze Patient tolerated procedure well - Additional Wound Wound debrided: left lateral heel Laterality: Left Wound Grade/Stage: Delgado grade 2 Type of Debridement: Excisional debridement Anesthesia Used: 4% Lidocaine Solution, 5% Lidocaine Gel Depth: Down to and including healthy tissue, in the subcutaneous layer Percentage of wound debrided: 100 Instrument Used: 5mm curette Tissue Removed: yellow slough, devitalized tissue Severity: Fat Layer Exposed Amount of bleeding with debridement: Mild Bleeding Controlled with: Compression and gauze Patient tolerated procedure: Patient tolerated procedure well Assessment/Plan Active Problems Diabetes mellitus, insulin dependent (IDDM), uncontrolled (Chronic) PAD (peripheral artery disease) (Chronic) Ulcer of heel due to diabetes (Chronic) Venous ulcer of right lower extremity with varicose veins (Chronic) Assessment: nonhealing venous ulcers of b/l lower extremities. Edema b/l lower extremities. IDDM. lymphedema. DFU left heel Plan: David's ulcers were evaluated and debrided today. He will continue to use hydrogel to his deluna and continue Promogran to his heel. Continue tubigrips for compression. Discussed decreased salt intake and weight loss as well as possibly having him do light duty which he states his job will not accomodate him. Vascular doesn't feel that he is a candidate for intervention at this time. Discussed importance of avoiding idle sitting and standing to treat his ulcers and encouraged to elevate his feet at or above the level of his heart as much as possible. He would benefit from lymphedema pumps due to his chronic venous insufficiency with recurrent ulcers and stage 2 lymphedema that have failed conservative treatment with elevation and exercises and compression bandaging. Encouraged weight loss, tight glucose control as well. He will follow up in 2 weeks.
[2019-03-10 14:31] VITALS: BP 135/77; PULSE 86; RESP 16; TEMP 36; BMI 46.2
--- NOTE | 2019-03-10 18:11 | PN.PCM_ITS ---
(1) Venous ulcer of right lower extremity with varicose veins Status: Resolved Current Visit: Yes Code(s): I83.019 - Varicose veins of right lower extremity with ulcer of unspecified site; L97.919 - Non-pressure chronic ulcer of unspecified part of right lower leg with unspecified severity (2) Diabetes mellitus, insulin dependent (IDDM), uncontrolled Status: Chronic Current Visit: Yes Qualifiers: Glycemic state: with hyperglycemia Code(s): E10.65 - Type 1 diabetes mellitus with hyperglycemia (3) PAD (peripheral artery disease) Status: Chronic Current Visit: Yes Code(s): I73.9 - Peripheral vascular disease, unspecified (4) Ulcer of heel due to diabetes Status: Chronic Current Visit: Yes Qualifiers: Diabetes mellitus type: type 2 Laterality: left Non-pressure ulcer stage: with fat layer exposed Qualified Code(s): E11.621 - Type 2 diabetes mellitus with foot ulcer; L97.422 - Non-pressure chronic ulcer of left heel and midfoot with fat layer exposed Code(s): E11.621 - Type 2 diabetes mellitus with foot ulcer; L97.409 - Non- pressure chronic ulcer of unspecified heel and midfoot with unspecified severity Type of Wound Date of Service: 03/10/19 Chief Complaint: nonhealing ulcers of lower extremities b/l - healed, edema, DFU left heel History of Wound: David is a 48 year old male that presents to the wound center for evaluation and treatment of nonhelaing ulcers of his lower legs that have been present for approximately 4 weeks. He states that his legs became swollen and then developed blisters which itched and broke open leaving sores. He has seen his PCP and they started him on Keflex 500 mg QID and he has been taking this for 4 weeks with minimal improvement. He has also been applying antibiotic ointment. He was also started on lasix which has helped his swelling somewhat. 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 He thinks his last A1C was in August and was 8.0%. He underwent vascular testing which showed normal arterial circulation but incompetence of veins in his lower extremities bilaterally right > left. He saw Dr. Steinberg for evaluation for possible venous ablation but he did not recommend any treatment at this time. Progress of Wound: Kian is here for follow up of venous ulcers and left heel DFU. He is tolerating dressings and shows improvement of his ulcers. He saw Anna Pichardo OT on for evaluation for lymphedema and is in the process of getting compression stockings but he has not been able to tolerate conventional compression stockings previously. He is using tubigrip compression and has been elevating his legs except for during work hours where he does not have the ability to rest or elevate. She has shown him exercises which he can do as well to help control his edema and he has been compliant with these. He has continued to develop new areas even when using tubigrip compression. He has failed surepress and RADHA wraps and Circaid compression as none of them would stay in place. - Physical Exam Vital Signs Temp Pulse Resp BP 96.8 F L 86 16 135/77 H 03/10/19 14:31 03/10/19 14:31 03/10/19 14:31 03/10/19 14:31 General: Alert, Oriented x3, Cooperative, No apparent distress HEENT: Atraumatic, Normocephalic Oral: Moist Mucosa Abdomen: Obese Extremities: Edema Skin: Ulcer/ Wound Wound Measurements and Assessment WC - Nurse 1 - General Ulcer Measurement Start: 02/24/19 14:26 Freq: Status: Active Protocol: Activity Type Activity Date Activity User E-Sign Co-Sign Detail Recorded Client Recorded Date Recorded By Document 03/10/19 14:31 [facility] [id number] 03/10/19 14:40 [facility] 03/10/19 14:31 Wound Center Nurse 1 [Ulcer Assessment] #9- RT DELUNA -Combined with other wound No -Current Size (cm) - Length 0 -Current Size (cm) - Width 0 -Current Size (cm) - Depth 0 -Total Square Cm 0 -Date of Last Picture (Recall this 03/10/19 field) -Photo Taken Yes -Epithelialization Large 67-100% #8- LT LAT HEEL -Combined with other wound No -Current Size (cm) - Length 0.2 -Current Size (cm) - Width 0.6 -Current Size (cm) - Depth 0.4 -Total Square Cm 0.12 -Photo Taken No -Epithelialization None Present -Tunneling No -Undermining/Tunneling Yes -Undermining/Tunneling Starts (O' 12 clock) -Undermining/Tunneling Ends (O'clock) 12 -Maximum Distance (cm) 0.2 -Exudate Amt Small -Exudate Type Serous -Wound Margin Distinct, Outline Attached -Granulation Amt Small (1-33%) -Granulation Quality Red -Slough/Fibrin Yes -Necrosis Amt Medium (34-66%) -Necrotic Tissue Type Adherent Slough -Texture (Milly-wound Skin Appearance) Callus Scarring -Moisture (Milly-wound Skin Appearance Maceration ) Dry/Scaly -Color (Milly-wound Skin Appearance) Assessed Erythema Palor -Temperature (Milly-wound Skin No Abnormality Appearance) (Pt Warm) -Tenderness on Palpation (Milly-wound No Skin Appearance) -Ulcer Cleansing Wound Cleanser -Foul Odor after Cleansing No -Anesthetic Used 5% Lidocaine Gel [Edema Assessment] -Lower Limb Edema Present Yes -Right Calf (cm) 45 -Right Ankle (cm) 24.9 -Left Calf (cm) 44 -Left Ankle (cm) 24.5 WC - Nurse 2 - General Ulcer CM Notes Start: 02/24/19 14:26 Freq: Status: Active Protocol: Activity Type Activity Date Activity User E-Sign Co-Sign Detail Recorded Client Recorded Date Recorded By Document 03/10/19 15:50 DV [id number] 03/10/19 15:59 DV 03/10/19 15:50 Wound Center Nurse 2 [Procedure/Treatment] #9- RT DELUNA -Time 15:51 -Correct Patient Yes -Correct Side, Site, Position Yes -Correct Procedure No -Procedure Performed No -Post Debridement Size (cm) - Length 0 -Post Debridement Size (cm) - Width 0 -Post Debridement Size (cm) - Depth 0 -Total Square Cm 0 -Wound/Ulcer Outcome Healed- Epithelialized -Bleeding Controlled with Pressure -Offloading No #8- LT LAT HEEL -Time 15:52 -Correct Patient Yes -Correct Side, Site, Position Yes -Correct Procedure Yes -Procedure Performed Yes -Type of Procedure Debridement -Clinical Debridement Subcutaneous -Post Debridement Size (cm) - Length 0.4 -Post Debridement Size (cm) - Width 1.0 -Post Debridement Size (cm) - Depth 0.2 -Total Square Cm 0.40 -Wound/Ulcer Outcome Not Healed -Ulcer Cleansing Rinsed/ Irrigated with Saline -Foul Odor after Cleansing No -Bioengineered Tissue No -Bleeding Controlled with Pressure -Offloading No -Type of Offloading Surgical Shoe -Treatment Response Procedure Tolerated Well [See Physician Procedure note for Specifics] Pain Scale: 0-10 Numeric [Pain] -Is Patient Pain Free? Yes Psych/Mental Status: Normal Affect, Appropriate Debridement Note Post-Debridement Measurements/Treatment WC - Nurse 2 - General Ulcer CM Notes Start: 02/24/19 14:26 Freq: Status: Active Protocol: Activity Type Activity Date Activity User E-Sign Co-Sign Detail Recorded Client Recorded Date Recorded By Document 02/24/19 16:05 DV [id number] 02/24/19 16:12 DV Document 03/10/19 15:50 DV [id number] 03/10/19 15:59 DV 02/24/19 03/10/19 16:05 15:50 Wound Center Nurse 2 #9- RT DELUNA -Time 16:06 15:51 -Correct Patient Yes Yes -Correct Side, Site, Position Yes Yes -Correct Procedure Yes No -Procedure Performed Yes No -Type of Procedure Debridement -Clinical Debridement Subcutaneous -Post Debridement Size (cm) - Length 0.3 0 -Post Debridement Size (cm) - Width 0.4 0 -Post Debridement Size (cm) - Depth 0.1 0 -Total Square Cm 0.12 0 -Wound/Ulcer Outcome Not Healed Healed- Epithelialized -Ulcer Cleansing Rinsed/ Irrigated with Saline -Foul Odor after Cleansing No -Bioengineered Tissue No -Bleeding Controlled with Pressure Pressure -Offloading No No -Treatment Response Procedure Tolerated Well #8- LT LAT HEEL -Time 16:06 15:52 -Correct Patient Yes Yes -Correct Side, Site, Position Yes Yes -Correct Procedure Yes Yes -Procedure Performed Yes Yes -Type of Procedure Debridement Debridement -Clinical Debridement Subcutaneous Subcutaneous -Post Debridement Size (cm) - Length 0.6 0.4 -Post Debridement Size (cm) - Width 1.0 1.0 -Post Debridement Size (cm) - Depth 0.2 0.2 -Total Square Cm 0.60 0.40 -Wound/Ulcer Outcome Not Healed Not Healed -Ulcer Cleansing Rinsed/ Rinsed/ Irrigated with Irrigated with Saline Saline -Foul Odor after Cleansing No No -Bioengineered Tissue No No -Bleeding Controlled with Pressure Pressure -Offloading No No -Type of Offloading Surgical Shoe -Treatment Response Procedure Procedure Tolerated Well Tolerated Well Pain Scale: 0-10 Numeric Is Patient Pain Free? Yes Yes Wound debrided: right deluna Laterality: Right No debridement was completed today - it is healed - Additional Wound Wound debrided: left heel Laterality: Left Wound Grade/Stage: Grade 2 Type of Debridement: Excisional debridement Anesthesia Used: 4% Lidocaine Solution, 5% Lidocaine Gel Depth: Down to and including healthy tissue, in the subcutaneous layer Percentage of wound debrided: 100 Instrument Used: 7mm curette, #15 blade, Forceps Tissue Removed: yellow slough, devitalized tissue Severity: Fat Layer Exposed Amount of bleeding with debridement: Mild Bleeding Controlled with: Compression and gauze Patient tolerated procedure: Patient tolerated procedure well Assessment/Plan Active Problems Diabetes mellitus, insulin dependent (IDDM), uncontrolled (Chronic) PAD (peripheral artery disease) (Chronic) Ulcer of heel due to diabetes (Chronic) Assessment: nonhealing venous ulcers of b/l lower extremities - healed. Edema b/l lower extremities. IDDM. lymphedema. DFU left heel Plan: David's ulcers were evaluated and debrided today. He will continue to use Promogran to his heel. Continue tubigrips for compression. Discussed TCC. He has a CAM walker from having problems with his left foot previously and we discussed trying to use that to see if it would help to decrease pressure to his foot and if there is not much improvement then he will consider TCC. Discussed decreased salt intake and weight loss as well as possibly having him do light duty which he states his job will not accomodate him. Vascular doesn't feel that he is a candidate for intervention at this time. Discussed importance of avoiding idle sitting and standing to treat his ulcers and encouraged to elevate his feet at or above the level of his heart as much as possible. He would benefit from lymphedema pumps due to his chronic venous insufficiency with recurrent ulcers and stage 2 lymphedema that have failed conservative treatment with elevation and exercises and compression bandaging. Encouraged weight loss, tight glucose control as well. He will follow up in 2 weeks.
== END 2019-03-21 23:59 ==
LOC: WC 14:30
PROVIDERS: Family Provider Family Medicine; PCP Family Medicine; Referring Provider Family Medicine; Visit Provider Family Medicine
DX: E10.621 Type 1 diabetes mellitus with foot ulcer (principal); E10.622 Type 1 diabetes mellitus with other skin ulcer; E10.65 Type 1 diabetes mellitus with hyperglycemia; E10.51 Type 1 diabetes mellitus with diabetic peripheral angiopathy without gangrene; I83.018 Varicose veins of right lower extremity with ulcer other part of lower leg; L97.812 Non-pressure chronic ulcer of other part of right lower leg with fat layer exposed; L97.422 Non-pressure chronic ulcer of left heel and midfoot with fat layer exposed; R60.0 Localized edema; I89.0 Lymphedema, not elsewhere classified
CPT/HCPCS: 11042

== ENCOUNTER 2019-04-14 15:00 | Outpatient (RCR) | payer BC, SELFPAY ==
[2019-03-22 01:05] VITALS: BP 135/77; PULSE 86; RESP 16; TEMP 36
[2019-03-24 14:52] VITALS: BP 128/72; PULSE 83; RESP 18; TEMP 36.4; BMI 46.2
--- NOTE | 2019-03-24 19:19 | PN.PCM_ITS ---
(1) Diabetes mellitus, insulin dependent (IDDM), uncontrolled Status: Chronic Current Visit: Yes Qualifiers: Glycemic state: with hyperglycemia Code(s): E10.65 - Type 1 diabetes mellitus with hyperglycemia (2) PVD (peripheral vascular disease) Status: Chronic Current Visit: Yes Code(s): I73.9 - Peripheral vascular disease, unspecified (3) Venous insufficiency of both lower extremities Status: Chronic Current Visit: Yes Code(s): I87.2 - Venous insufficiency (chronic) (peripheral) (4) Ulcer of heel due to diabetes Status: Chronic Current Visit: Yes Qualifiers: Diabetes mellitus type: type 2 Laterality: left Non-pressure ulcer stage: with fat layer exposed Qualified Code(s): E11.621 - Type 2 diabetes mellitus with foot ulcer; L97.422 - Non-pressure chronic ulcer of left heel and midfoot with fat layer exposed Code(s): E11.621 - Type 2 diabetes mellitus with foot ulcer; L97.409 - Non- pressure chronic ulcer of unspecified heel and midfoot with unspecified severity Type of Wound Date of Service: 03/24/19 Chief Complaint: nonhealing ulcers of lower extremities b/l - healed, edema, DFU left heel History of Wound: David is a 48 year old male that presents to the wound center for evaluation and treatment of nonhelaing ulcers of his lower legs that have been present for approximately 4 weeks. He states that his legs became swollen and then developed blisters which itched and broke open leaving sores. He has seen his PCP and they started him on Keflex 500 mg QID and he has been taking this for 4 weeks with minimal improvement. He has also been applying antibiotic ointment. He was also started on lasix which has helped his swelling somewhat. 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 He thinks his last A1C was in August and was 8.0%. He underwent vascular testing which showed normal arterial circulation but incompetence of veins in his lower extremities bilaterally right > left. He saw Dr. Steinberg for evaluation for possible venous ablation but he did not recommend any treatment at this time. Progress of Wound: Kian is here for follow up of left heel DFU. He is tolerating dressings and shows improvement of his ulcer. He saw Anna Pelion, OT on for evaluation for lymphedema and is in the process of getting compression stockings but he has not been able to tolerate conventional compression stockings previously. He is using tubigrip compression and has been elevating his legs except for during work hours where he does not have the ability to rest or elevate. She has shown him exercises which he can do as well to help control his edema and he has been compliant with these. He has continued to develop new areas even when using tubigrip compression. He has failed surepress and RADHA wraps and Circaid compression as none of them would stay in place. - Physical Exam Vital Signs Temp Pulse Resp BP 97.5 F L 83 18 128/72 H 03/24/19 14:52 03/24/19 14:52 03/24/19 14:52 03/24/19 14:52 General: Alert, Oriented x3, Cooperative, No apparent distress HEENT: Atraumatic, Normocephalic Oral: Moist Mucosa Abdomen: Obese Extremities: Edema Skin: Ulcer/ Wound Wound Measurements and Assessment WC - Nurse 1 - General Ulcer Measurement Start: 03/24/19 14:52 Freq: Status: Active Protocol: Activity Type Activity Date Activity User E-Sign Co-Sign Detail Recorded Client Recorded Date Recorded By Document 03/24/19 14:52 [id number] 03/24/19 14:55 RB 03/24/19 14:52 Wound Center Nurse 1 [Ulcer Assessment] #8- LT LAT HEEL -Combined with other wound No -Current Size (cm) - Length 0.5 -Current Size (cm) - Width 0.2 -Current Size (cm) - Depth 0.2 -Total Square Cm 0.10 -Tunneling No -Undermining/Tunneling No -Circular Undermining No -Exudate Amt Small -Exudate Type Serosanguineous -Wound Margin Thickened -Granulation Amt Large (67-100%) -Granulation Quality Twilight -Necrosis Amt Small (1-33%) -Necrotic Tissue Type Adherent Slough -Structure Exposed N/A -Texture (Milly-wound Skin Appearance) Callus -Moisture (Milly-wound Skin Appearance Assessed ) -Color (Milly-wound Skin Appearance) Assessed -Temperature (Milly-wound Skin No Abnormality Appearance) (Pt Warm) -Tenderness on Palpation (Milly-wound No Skin Appearance) -Ulcer Cleansing Wound Cleanser -Foul Odor after Cleansing No -Anesthetic Used 5% Lidocaine Gel [Edema Assessment] -Lower Limb Edema Present Yes -Left Calf (cm) 43.5 -Left Ankle (cm) 24 - Nurse 2 - General Ulcer CM Notes Start: 03/24/19 14:52 Freq: Status: Active Protocol: Activity Type Activity Date Activity User E-Sign Co-Sign Detail Recorded Client Recorded Date Recorded By Document 03/24/19 15:50 DV [id number] 03/24/19 15:54 DV 03/24/19 15:50 Wound Center Nurse 2 [Procedure/Treatment] #8- LT LAT HEEL -Time 15:51 -Correct Patient Yes -Correct Side, Site, Position Yes -Correct Procedure Yes -Procedure Performed Yes -Type of Procedure Debridement -Clinical Debridement Subcutaneous -Post Debridement Size (cm) - Length 0.2 -Post Debridement Size (cm) - Width 0.8 -Post Debridement Size (cm) - Depth 0.2 -Total Square Cm 0.16 -Wound/Ulcer Outcome Not Healed -Ulcer Cleansing Rinsed/ Irrigated with Saline -Foul Odor after Cleansing No -Bioengineered Tissue No -Bleeding Controlled with Pressure -Offloading No -Treatment Response Procedure Tolerated Well [See Physician Procedure note for Specifics] Pain Scale: 0-10 Numeric [Pain] -Is Patient Pain Free? Yes Psych/Mental Status: Normal Affect, Appropriate Debridement Note Post-Debridement Measurements/Treatment - Nurse 2 - General Ulcer CM Notes Start: 03/24/19 14:52 Freq: Status: Active Protocol: Activity Type Activity Date Activity User E-Sign Co-Sign Detail Recorded Client Recorded Date Recorded By Document 03/24/19 15:50 DV [id number] 03/24/19 15:54 DV 03/24/19 15:50 Wound Center Nurse 2 #8- LT LAT HEEL -Time 15:51 -Correct Patient Yes -Correct Side, Site, Position Yes -Correct Procedure Yes -Procedure Performed Yes -Type of Procedure Debridement -Clinical Debridement Subcutaneous -Post Debridement Size (cm) - Length 0.2 -Post Debridement Size (cm) - Width 0.8 -Post Debridement Size (cm) - Depth 0.2 -Total Square Cm 0.16 -Wound/Ulcer Outcome Not Healed -Ulcer Cleansing Rinsed/ Irrigated with Saline -Foul Odor after Cleansing No -Bioengineered Tissue No -Bleeding Controlled with Pressure -Offloading No -Treatment Response Procedure Tolerated Well Pain Scale: 0-10 Numeric Is Patient Pain Free? Yes Wound debrided: left lateral heel Laterality: Left Wound Grade/Stage: Grade 2 Type of Debridement: Excisional debridement Anesthesia Used: 4% Lidocaine Solution, 5% Lidocaine Gel Depth: Down to and including healthy tissue, in the subcutaneous layer Percentage of wound debrided: 100 Instrument Used: 7mm curette Tissue Removed: yellow slough, devitalized tissue Severity: Fat Layer Exposed Amount of bleeding with debridement: Mild Bleeding Controlled with: Compression and gauze Patient tolerated procedure well Assessment/Plan Active Problems Diabetes mellitus, insulin dependent (IDDM), uncontrolled (Chronic) PVD (peripheral vascular disease) (Chronic) Venous insufficiency of both lower extremities (Chronic) Ulcer of heel due to diabetes (Chronic) Assessment: nonhealing venous ulcers of b/l lower extremities - healed. Edema b/l lower extremities. IDDM. lymphedema. DFU left heel Plan: David's ulcer was evaluated and debrided today. He will continue to use Promogran to his heel. Continue tubigrips for compression. Discussed TCC. He has a CAM walker from having problems with his left foot previously and we discussed trying to use that to see if it would help to decrease pressure to his foot and if there is not much improvement then he will consider TCC. Discussed decreased salt intake and weight loss as well as possibly having him do light duty which he states his job will not accomodate him. Vascular doesn't feel that he is a candidate for intervention at this time. Discussed importance of avoiding idle sitting and standing to treat his ulcers and encouraged to elevate his feet at or above the level of his heart as much as possible. He would benefit from lymphedema pumps due to his chronic venous insufficiency with recurrent ulcers and stage 2 lymphedema that have failed conservative treatment with elevation and exercises and compression bandaging. Encouraged weight loss, tight glucose control as well. He will follow up in 2 weeks.
[2019-03-31 15:04] VITALS: BP 140/100; PULSE 94; RESP 16; TEMP 36.2; BMI 46.2
--- NOTE | 2019-03-31 17:12 | PCM.WC.PN ---
(1) Diabetes mellitus, insulin dependent (IDDM), uncontrolled Status: Chronic Current Visit: Yes Qualifiers: Glycemic state: with hyperglycemia Code(s): E10.65 - Type 1 diabetes mellitus with hyperglycemia (2) PVD (peripheral vascular disease) Status: Chronic Current Visit: Yes Code(s): I73.9 - Peripheral vascular disease, unspecified (3) Venous insufficiency of both lower extremities Status: Chronic Current Visit: Yes Code(s): I87.2 - Venous insufficiency (chronic) (peripheral) (4) Ulcer of heel due to diabetes Status: Chronic Current Visit: Yes Qualifiers: Diabetes mellitus type: type 2 Laterality: left Non-pressure ulcer stage: with fat layer exposed Qualified Code(s): E11.621 - Type 2 diabetes mellitus with foot ulcer; L97.422 - Non-pressure chronic ulcer of left heel and midfoot with fat layer exposed Code(s): E11.621 - Type 2 diabetes mellitus with foot ulcer; L97.409 - Non-pressure chronic ulcer of unspecified heel and midfoot with unspecified severity Type of Wound Date of Service: 03/31/19 Chief Complaint: nonhealing ulcers of lower extremities b/l - healed, edema, DFU left heel History of Wound: David is a 48 year old male that presents to the wound center for evaluation and treatment of nonhelaing ulcers of his lower legs that have been present for approximately 4 weeks. He states that his legs became swollen and then developed blisters which itched and broke open leaving sores. He has seen his PCP and they started him on Keflex 500 mg QID and he has been taking this for 4 weeks with minimal improvement. He has also been applying antibiotic ointment. He was also started on lasix which has helped his swelling somewhat. He works at the [employer] and he is on his feet all the time there. He thinks his last A1C was in August and was 8.0%. He underwent vascular testing which showed normal arterial circulation but incompetence of veins in his lower extremities bilaterally right > left. He saw Dr. Steinberg for evaluation for possible venous ablation but he did not recommend any treatment at this time. Progress of Wound: Kian is here for follow up of left heel DFU. He is tolerating dressings and shows improvement of his ulcer. He saw Anna [place], OT on for evaluation for lymphedema and is in the process of getting compression stockings but he has not been able to tolerate conventional compression stockings previously. He is using tubigrip compression and has been elevating his legs except for during work hours where he does not have the ability to rest or elevate. She has shown him exercises which he can do as well to help control his edema and he has been compliant with these. He has continued to develop new areas even when using tubigrip compression. He has failed surepress and RADHA wraps and Circaid compression as none of them would stay in place. He has not tried his walking boot yet. He tries to offload his foot as much as possible. - Physical Exam Vital Signs Temp Pulse Resp BP 97.1 F L 94 16 140/100 H 03/31/19 15:04 03/31/19 15:04 03/31/19 15:04 03/31/19 15:04 General: Alert, Oriented x3, Cooperative, No apparent distress HEENT: Atraumatic, Normocephalic Oral: Moist Mucosa Abdomen: Obese Extremities: Edema Skin: Ulcer/ Wound Wound Measurements and Assessment WC - Nurse 1 - General Ulcer Measurement Start: 03/24/19 14:52 Freq: Status: Active Protocol: Activity Type Activity Date Activity User E-Sign Co-Sign Detail Recorded Client Recorded Date Recorded By Document 03/31/19 15:04 [facility] [id number] 03/31/19 15:08 [facility] 03/31/19 15:04 Wound Center Nurse 1 [Ulcer Assessment] #8- LT LAT HEEL -Combined with other wound No -Current Size (cm) - Length 0.6 -Current Size (cm) - Width 0.3 -Current Size (cm) - Depth 0.2 -Total Square Cm 0.18 -Date of Last Picture (Recall this 03/31/19 field) -Photo Taken Yes -Epithelialization None Present -Tunneling No -Undermining/Tunneling No -Circular Undermining No -Exudate Amt Small -Wound Margin Distinct, Outline Attached -Granulation Amt Large (67-100%) -Granulation Quality [place] -Slough/Fibrin Yes -Necrosis Amt Small (1-33%) -Necrotic Tissue Type Adherent Slough -Texture (Milly-wound Skin Appearance) Callus Scarring -Moisture (Milly-wound Skin Appearance Maceration ) Dry/Scaly -Color (Milly-wound Skin Appearance) Palor -Temperature (Milly-wound Skin No Abnormality Appearance) (Pt Warm) -Tenderness on Palpation (Milly-wound No Skin Appearance) -Ulcer Cleansing Rinsed/ Irrigated with Saline -Anesthetic Used 5% Lidocaine Gel [Edema Assessment] -Lower Limb Edema Present Yes -Left Calf (cm) 42.5 -Left Ankle (cm) 24 WC - Nurse 2 - General Ulcer CM Notes Start: 03/24/19 14:52 Freq: Status: Active Protocol: Activity Type Activity Date Activity User E-Sign Co-Sign Detail Recorded Client Recorded Date Recorded By Document 03/31/19 15:45 DV [id number] 03/31/19 15:47 DV 03/31/19 15:45 Wound Center Nurse 2 [Procedure/Treatment] #8- LT LAT HEEL -Time 15:45 -Correct Patient Yes -Correct Side, Site, Position Yes -Correct Procedure Yes -Procedure Performed Yes -Type of Procedure Debridement -Clinical Debridement Subcutaneous -Post Debridement Size (cm) - Length 0.2 -Post Debridement Size (cm) - Width 1.0 -Post Debridement Size (cm) - Depth 0.2 -Total Square Cm 0.20 -Wound/Ulcer Outcome Not Healed -Ulcer Cleansing Rinsed/ Irrigated with Saline -Foul Odor after Cleansing No -Bioengineered Tissue No -Bleeding Controlled with Pressure -Offloading No -Treatment Response Procedure Tolerated Well [See Physician Procedure note for Specifics] Pain Scale: 0-10 Numeric [Pain] -Is Patient Pain Free? Yes Psych/Mental Status: Normal Affect, Appropriate Debridement Note Post-Debridement Measurements/Treatment WC - Nurse 2 - General Ulcer CM Notes Start: 03/24/19 14:52 Freq: Status: Active Protocol: Activity Type Activity Date Activity User E-Sign Co-Sign Detail Recorded Client Recorded Date Recorded By Document 03/24/19 15:50 DV [id number] 03/24/19 15:54 DV Document 03/31/19 15:45 DV [id number] 03/31/19 15:47 DV 03/24/19 03/31/19 15:50 15:45 Wound Center Nurse 2 #8- LT LAT HEEL -Time 15:51 15:45 -Correct Patient Yes Yes -Correct Side, Site, Position Yes Yes -Correct Procedure Yes Yes -Procedure Performed Yes Yes -Type of Procedure Debridement Debridement -Clinical Debridement Subcutaneous Subcutaneous -Post Debridement Size (cm) - Length 0.2 0.2 -Post Debridement Size (cm) - Width 0.8 1.0 -Post Debridement Size (cm) - Depth 0.2 0.2 -Total Square Cm 0.16 0.20 -Wound/Ulcer Outcome Not Healed Not Healed -Ulcer Cleansing Rinsed/ Rinsed/ Irrigated with Irrigated with Saline Saline -Foul Odor after Cleansing No No -Bioengineered Tissue No No -Bleeding Controlled with Pressure Pressure -Offloading No No -Treatment Response Procedure Procedure Tolerated Well Tolerated Well Pain Scale: 0-10 Numeric Is Patient Pain Free? Yes Yes Wound debrided: left lateral heel Laterality: Left Wound Grade/Stage: cruz grade 2 Type of Debridement: Excisional debridement Anesthesia Used: 4% Lidocaine Solution, 5% Lidocaine Gel, Cetacaine Depth: Down to and including healthy tissue, in the subcutaneous layer Percentage of wound debrided: 100 Instrument Used: 5mm curette, #15 blade, Forceps Tissue Removed: yellow slough, devitalized tissue Severity: Fat Layer Exposed Amount of bleeding with debridement: Mild Bleeding Controlled with: Compression and gauze Patient tolerated procedure well Assessment/Plan Active Problems Diabetes mellitus, insulin dependent (IDDM), uncontrolled (Chronic) PVD (peripheral vascular disease) (Chronic) Venous insufficiency of both lower extremities (Chronic) Ulcer of heel due to diabetes (Chronic) Assessment: nonhealing venous ulcers of b/l lower extremities - healed. Edema b/l lower extremities. IDDM. lymphedema. DFU left heel Plan: David's ulcer was evaluated and debrided today. He will continue to use Promogran to his heel but will moisten with hydrogel and cover with adaptic. Continue tubigrips for compression. Discussed TCC. He has a CAM walker from having problems with his left foot previously and we discussed trying to use that to see if it would help to decrease pressure to his foot and if there is not much improvement then he will consider TCC. He has not done this yet as he forgot but he plans on trying this. Discussed decreased salt intake and weight loss as well as possibly having him do light duty which he states his job will not accomodate him. Vascular doesn't feel that he is a candidate for intervention at this time. Discussed importance of avoiding idle sitting and standing to treat his ulcers and encouraged to elevate his feet at or above the level of his heart as much as possible. He would benefit from lymphedema pumps due to his chronic venous insufficiency with recurrent ulcers and stage 2 lymphedema that have failed conservative treatment with elevation and exercises and compression bandaging. Encouraged weight loss, tight glucose control as well. He will follow up in 2 weeks.
--- NOTE | 2019-03-31 17:15 | PN.PCM_ITS ---
(1) Diabetes mellitus, insulin dependent (IDDM), uncontrolled Status: Chronic Current Visit: Yes Qualifiers: Glycemic state: with hyperglycemia Code(s): E10.65 - Type 1 diabetes mellitus with hyperglycemia (2) PVD (peripheral vascular disease) Status: Chronic Current Visit: Yes Code(s): I73.9 - Peripheral vascular disease, unspecified (3) Venous insufficiency of both lower extremities Status: Chronic Current Visit: Yes Code(s): I87.2 - Venous insufficiency (chronic) (peripheral) (4) Ulcer of heel due to diabetes Status: Chronic Current Visit: Yes Qualifiers: Diabetes mellitus type: type 2 Laterality: left Non-pressure ulcer stage: with fat layer exposed Qualified Code(s): E11.621 - Type 2 diabetes mellitus with foot ulcer; L97.422 - Non-pressure chronic ulcer of left heel and midfoot with fat layer exposed Code(s): E11.621 - Type 2 diabetes mellitus with foot ulcer; L97.409 - Non- pressure chronic ulcer of unspecified heel and midfoot with unspecified severity Type of Wound Date of Service: 03/31/19 Chief Complaint: nonhealing ulcers of lower extremities b/l - healed, edema, DFU left heel History of Wound: David is a 48 year old male that presents to the wound center for evaluation and treatment of nonhelaing ulcers of his lower legs that have been present for approximately 4 weeks. He states that his legs became swollen and then developed blisters which itched and broke open leaving sores. He has seen his PCP and they started him on Keflex 500 mg QID and he has been taking this for 4 weeks with minimal improvement. He has also been applying antibiotic ointment. He was also started on lasix which has helped his swelling somewhat. He works at the [employer] and he is on his feet all the time there. He thinks his last A1C was in August and was 8.0%. He underwent vascular testing which showed normal arterial circulation but incompetence of veins in his lower extremities bilaterally right > left. He saw Dr. Steinberg for evaluation for possible venous ablation but he did not recommend any treatment at this time. Progress of Wound: Kian is here for follow up of left heel DFU. He is tolerating dressings and shows improvement of his ulcer. He saw Anna [place], OT on for evaluation for lymphedema and is in the process of getting compression stockings but he has not been able to tolerate conventional compression stockings previously. He is using tubigrip compression and has been elevating his legs except for during work hours where he does not have the ability to rest or elevate. She has shown him exercises which he can do as well to help control his edema and he has been compliant with these. He has continued to develop new areas even when using tubigrip compression. He has failed surepress and RADHA wraps and Circaid compression as none of them would stay in place. He has not tried his walking boot yet. He tries to offload his foot as much as possible. - Physical Exam Vital Signs Temp Pulse Resp BP 97.1 F L 94 16 140/100 H 03/31/19 15:04 03/31/19 15:04 03/31/19 15:04 03/31/19 15:04 General: Alert, Oriented x3, Cooperative, No apparent distress HEENT: Atraumatic, Normocephalic Oral: Moist Mucosa Abdomen: Obese Extremities: Edema Skin: Ulcer/ Wound Wound Measurements and Assessment WC - Nurse 1 - General Ulcer Measurement Start: 03/24/19 14:52 Freq: Status: Active Protocol: Activity Type Activity Date Activity User E-Sign Co-Sign Detail Recorded Client Recorded Date Recorded By Document 03/31/19 15:04 [facility] [id number] 03/31/19 15:08 [facility] 03/31/19 15:04 Wound Center Nurse 1 [Ulcer Assessment] #8- LT LAT HEEL -Combined with other wound No -Current Size (cm) - Length 0.6 -Current Size (cm) - Width 0.3 -Current Size (cm) - Depth 0.2 -Total Square Cm 0.18 -Date of Last Picture (Recall this 03/31/19 field) -Photo Taken Yes -Epithelialization None Present -Tunneling No -Undermining/Tunneling No -Circular Undermining No -Exudate Amt Small -Wound Margin Distinct, Outline Attached -Granulation Amt Large (67-100%) -Granulation Quality [place] -Slough/Fibrin Yes -Necrosis Amt Small (1-33%) -Necrotic Tissue Type Adherent Slough -Texture (Milly-wound Skin Appearance) Callus Scarring -Moisture (Milly-wound Skin Appearance Maceration ) Dry/Scaly -Color (Milly-wound Skin Appearance) Palor -Temperature (Milly-wound Skin No Abnormality Appearance) (Pt Warm) -Tenderness on Palpation (Milly-wound No Skin Appearance) -Ulcer Cleansing Rinsed/ Irrigated with Saline -Anesthetic Used 5% Lidocaine Gel [Edema Assessment] -Lower Limb Edema Present Yes -Left Calf (cm) 42.5 -Left Ankle (cm) 24 WC - Nurse 2 - General Ulcer CM Notes Start: 03/24/19 14:52 Freq: Status: Active Protocol: Activity Type Activity Date Activity User E-Sign Co-Sign Detail Recorded Client Recorded Date Recorded By Document 03/31/19 15:45 DV [id number] 03/31/19 15:47 DV 03/31/19 15:45 Wound Center Nurse 2 [Procedure/Treatment] #8- LT LAT HEEL -Time 15:45 -Correct Patient Yes -Correct Side, Site, Position Yes -Correct Procedure Yes -Procedure Performed Yes -Type of Procedure Debridement -Clinical Debridement Subcutaneous -Post Debridement Size (cm) - Length 0.2 -Post Debridement Size (cm) - Width 1.0 -Post Debridement Size (cm) - Depth 0.2 -Total Square Cm 0.20 -Wound/Ulcer Outcome Not Healed -Ulcer Cleansing Rinsed/ Irrigated with Saline -Foul Odor after Cleansing No -Bioengineered Tissue No -Bleeding Controlled with Pressure -Offloading No -Treatment Response Procedure Tolerated Well [See Physician Procedure note for Specifics] Pain Scale: 0-10 Numeric [Pain] -Is Patient Pain Free? Yes Psych/Mental Status: Normal Affect, Appropriate Debridement Note Post-Debridement Measurements/Treatment WC - Nurse 2 - General Ulcer CM Notes Start: 03/24/19 14:52 Freq: Status: Active Protocol: Activity Type Activity Date Activity User E-Sign Co-Sign Detail Recorded Client Recorded Date Recorded By Document 03/24/19 15:50 DV [id number] 03/24/19 15:54 DV Document 03/31/19 15:45 DV [id number] 03/31/19 15:47 DV 03/24/19 03/31/19 15:50 15:45 Wound Center Nurse 2 #8- LT LAT HEEL -Time 15:51 15:45 -Correct Patient Yes Yes -Correct Side, Site, Position Yes Yes -Correct Procedure Yes Yes -Procedure Performed Yes Yes -Type of Procedure Debridement Debridement -Clinical Debridement Subcutaneous Subcutaneous -Post Debridement Size (cm) - Length 0.2 0.2 -Post Debridement Size (cm) - Width 0.8 1.0 -Post Debridement Size (cm) - Depth 0.2 0.2 -Total Square Cm 0.16 0.20 -Wound/Ulcer Outcome Not Healed Not Healed -Ulcer Cleansing Rinsed/ Rinsed/ Irrigated with Irrigated with Saline Saline -Foul Odor after Cleansing No No -Bioengineered Tissue No No -Bleeding Controlled with Pressure Pressure -Offloading No No -Treatment Response Procedure Procedure Tolerated Well Tolerated Well Pain Scale: 0-10 Numeric Is Patient Pain Free? Yes Yes Wound debrided: left lateral heel Laterality: Left Wound Grade/Stage: cruz grade 2 Type of Debridement: Excisional debridement Anesthesia Used: 4% Lidocaine Solution, 5% Lidocaine Gel, Cetacaine Depth: Down to and including healthy tissue, in the subcutaneous layer Percentage of wound debrided: 100 Instrument Used: 5mm curette, #15 blade, Forceps Tissue Removed: yellow slough, devitalized tissue Severity: Fat Layer Exposed Amount of bleeding with debridement: Mild Bleeding Controlled with: Compression and gauze Patient tolerated procedure well Assessment/Plan Active Problems Diabetes mellitus, insulin dependent (IDDM), uncontrolled (Chronic) PVD (peripheral vascular disease) (Chronic) Venous insufficiency of both lower extremities (Chronic) Ulcer of heel due to diabetes (Chronic) Assessment: nonhealing venous ulcers of b/l lower extremities - healed. Edema b/l lower extremities. IDDM. lymphedema. DFU left heel Plan: David's ulcer was evaluated and debrided today. He will continue to use Promogran to his heel but will moisten with hydrogel and cover with adaptic. Continue tubigrips for compression. Discussed TCC. He has a CAM walker from having problems with his left foot previously and we discussed trying to use that to see if it would help to decrease pressure to his foot and if there is not much improvement then he will consider TCC. He has not done this yet as he forgot but he plans on trying this. Discussed decreased salt intake and weight loss as well as possibly having him do light duty which he states his job will not accomodate him. Vascular doesn't feel that he is a candidate for intervention at this time. Discussed importance of avoiding idle sitting and standing to treat his ulcers and encouraged to elevate his feet at or above the level of his heart as much as possible. He would benefit from lymphedema pumps due to his chronic venous insufficiency with recurrent ulcers and stage 2 lymphedema that have failed conservative treatment with elevation and exercises and compression bandaging. Encouraged weight loss, tight glucose control as well. He will follow up in 2 weeks.
[2019-04-14 15:42] VITALS: BP 154/99; PULSE 79; RESP 16; TEMP 35.5; BMI 46.2
--- NOTE | 2019-04-14 20:18 | PCM.WC.PN ---
(1) Diabetes mellitus, insulin dependent (IDDM), uncontrolled Status: Chronic Current Visit: Yes Qualifiers: Glycemic state: with hyperglycemia Code(s): E10.65 - Type 1 diabetes mellitus with hyperglycemia (2) PVD (peripheral vascular disease) Status: Chronic Current Visit: Yes Code(s): I73.9 - Peripheral vascular disease, unspecified (3) Venous insufficiency of both lower extremities Status: Chronic Current Visit: Yes Code(s): I87.2 - Venous insufficiency (chronic) (peripheral) (4) Ulcer of heel due to diabetes Status: Chronic Current Visit: Yes Qualifiers: Diabetes mellitus type: type 2 Laterality: left Non-pressure ulcer stage: with fat layer exposed Qualified Code(s): E11.621 - Type 2 diabetes mellitus with foot ulcer; L97.422 - Non-pressure chronic ulcer of left heel and midfoot with fat layer exposed Code(s): E11.621 - Type 2 diabetes mellitus with foot ulcer; L97.409 - Non-pressure chronic ulcer of unspecified heel and midfoot with unspecified severity Type of Wound Date of Service: 04/14/19 Chief Complaint: nonhealing ulcers of lower extremities b/l - healed, edema, DFU left heel History of Wound: David is a 48 year old male that presents to the wound center for evaluation and treatment of nonhelaing ulcers of his lower legs that have been present for approximately 4 weeks. He states that his legs became swollen and then developed blisters which itched and broke open leaving sores. He has seen his PCP and they started him on Keflex 500 mg QID and he has been taking this for 4 weeks with minimal improvement. He has also been applying antibiotic ointment. He was also started on lasix which has helped his swelling somewhat. 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 He thinks his last A1C was in August and was 8.0%. He underwent vascular testing which showed normal arterial circulation but incompetence of veins in his lower extremities bilaterally right > left. He saw Dr. Steinberg for evaluation for possible venous ablation but he did not recommend any treatment at this time. Progress of Wound: Kian is here for follow up of left heel DFU. He is tolerating dressings and shows improvement of his ulcer. He saw Anna [place], OT on for evaluation for lymphedema and is in the process of getting compression stockings but he has not been able to tolerate conventional compression stockings previously. He is using tubigrip compression and has been elevating his legs except for during work hours where he does not have the ability to rest or elevate. She has shown him exercises which he can do as well to help control his edema and he has been compliant with these. He has continued to develop new areas even when using tubigrip compression. He has failed surepress and RADHA wraps and Circaid compression as none of them would stay in place. He has not tried his walking boot yet. He tries to offload his foot as much as possible. - Physical Exam Vital Signs Temp Pulse Resp BP 96 F L 79 16 154/99 H 04/14/19 15:42 04/14/19 15:42 04/14/19 15:42 04/14/19 15:42 General: Alert, Oriented x3, Cooperative, No apparent distress HEENT: Atraumatic, Normocephalic Oral: Moist Mucosa Abdomen: Obese Extremities: Edema Skin: Ulcer/ Wound Wound Measurements and Assessment WC - Nurse 1 - General Ulcer Measurement Start: 03/24/19 14:52 Freq: Status: Active Protocol: Activity Type Activity Date Activity User E-Sign Co-Sign Detail Recorded Client Recorded Date Recorded By Document 04/14/19 15:42 [facility] [id number] 04/14/19 15:47 [facility] 04/14/19 15:42 Wound Center Nurse 1 [Ulcer Assessment] #8- LT LAT HEEL -Combined with other wound No -Current Size (cm) - Length 0.1 -Current Size (cm) - Width 1 -Current Size (cm) - Depth 0.2 -Total Square Cm 0.1 -Photo Taken No -Epithelialization Medium 34-66% -Tunneling No -Undermining/Tunneling No -Circular Undermining No -Exudate Amt Small -Exudate Type Serous -Wound Margin Distinct, Outline Attached -Granulation Amt Medium (34-66%) -Granulation Quality [place] -Slough/Fibrin Yes -Necrosis Amt Small (1-33%) -Necrotic Tissue Type Adherent Slough -Texture (Milly-wound Skin Appearance) Assessed Callus Scarring -Moisture (Milly-wound Skin Appearance Assessed ) Dry/Scaly -Color (Milly-wound Skin Appearance) Assessed -Temperature (Milly-wound Skin No Abnormality Appearance) (Pt Warm) -Tenderness on Palpation (Milly-wound No Skin Appearance) -Ulcer Cleansing Rinsed/ Irrigated with Saline -Foul Odor after Cleansing No -Anesthetic Used 5% Lidocaine Gel [Edema Assessment] -Lower Limb Edema Present Yes -Left Calf (cm) 41.2 -Left Ankle (cm) 25.6 WC - Nurse 2 - General Ulcer CM Notes Start: 03/24/19 14:52 Freq: Status: Active Protocol: Activity Type Activity Date Activity User E-Sign Co-Sign Detail Recorded Client Recorded Date Recorded By Document 04/14/19 17:08 DV [id number] 04/14/19 17:14 DV 04/14/19 17:08 Wound Center Nurse 2 [Procedure/Treatment] #8- LT LAT HEEL -Time 17:09 -Correct Patient Yes -Correct Side, Site, Position Yes -Correct Procedure Yes -Procedure Performed Yes -Type of Procedure Debridement -Clinical Debridement Subcutaneous -Post Debridement Size (cm) - Length 0.1 -Post Debridement Size (cm) - Width 0.5 -Post Debridement Size (cm) - Depth 0.1 -Total Square Cm 0.05 -Wound/Ulcer Outcome Not Healed -Ulcer Cleansing Rinsed/ Irrigated with Saline -Foul Odor after Cleansing No -Bioengineered Tissue No -Bleeding Controlled with Pressure -Treatment Response Procedure Tolerated Well [See Physician Procedure note for Specifics] Pain Scale: 0-10 Numeric [Pain] -Is Patient Pain Free? Yes Psych/Mental Status: Normal Affect, Appropriate Debridement Note Post-Debridement Measurements/Treatment WC - Nurse 2 - General Ulcer CM Notes Start: 03/24/19 14:52 Freq: Status: Active Protocol: Activity Type Activity Date Activity User E-Sign Co-Sign Detail Recorded Client Recorded Date Recorded By Document 03/24/19 15:50 DV [id number] 03/24/19 15:54 DV Document 03/31/19 15:45 DV [id number] 03/31/19 15:47 DV Document 04/14/19 17:08 DV [id number] 04/14/19 17:14 DV 03/24/19 03/31/19 04/14/19 15:50 15:45 17:08 Wound Center Nurse 2 #8- LT LAT HEEL -Time 15:51 15:45 17:09 -Correct Patient Yes Yes Yes -Correct Side, Site, Position Yes Yes Yes -Correct Procedure Yes Yes Yes -Procedure Performed Yes Yes Yes -Type of Procedure Debridement Debridement Debridement -Clinical Debridement Subcutaneous Subcutaneous Subcutaneous -Post Debridement Size (cm) - Length 0.2 0.2 0.1 -Post Debridement Size (cm) - Width 0.8 1.0 0.5 -Post Debridement Size (cm) - Depth 0.2 0.2 0.1 -Total Square Cm 0.16 0.20 0.05 -Wound/Ulcer Outcome Not Healed Not Healed Not Healed -Ulcer Cleansing Rinsed/ Rinsed/ Rinsed/ Irrigated with Irrigated with Irrigated with Saline Saline Saline -Foul Odor after Cleansing No No No -Bioengineered Tissue No No No -Bleeding Controlled with Pressure Pressure Pressure -Offloading No No -Treatment Response Procedure Procedure Procedure Tolerated Well Tolerated Well Tolerated Well Pain Scale: 0-10 Numeric Is Patient Pain Free? Yes Yes Yes Wound debrided: left lateral heel Laterality: Left Wound Grade/Stage: Delgado grade 2 Type of Debridement: Excisional debridement Anesthesia Used: 4% Lidocaine Solution, 5% Lidocaine Gel Depth: Down to and including healthy tissue, in the subcutaneous layer Percentage of wound debrided: 100 Instrument Used: 5mm curette Tissue Removed: yellow slough, devitalized tissue Severity: Fat Layer Exposed Amount of bleeding with debridement: Mild Bleeding Controlled with: Compression and gauze Patient tolerated procedure well Assessment/Plan Active Problems Diabetes mellitus, insulin dependent (IDDM), uncontrolled (Chronic) PVD (peripheral vascular disease) (Chronic) Venous insufficiency of both lower extremities (Chronic) Ulcer of heel due to diabetes (Chronic) Assessment: nonhealing venous ulcers of b/l lower extremities - healed. Edema b/l lower extremities. IDDM. lymphedema. DFU left heel Plan: David's ulcer was evaluated and debrided today. He will continue to use Promogran to his heel but will moisten with hydrogel and cover with adaptic. Continue tubigrips for compression. Discussed TCC. He has a CAM walker from having problems with his left foot previously and we discussed trying to use that to see if it would help to decrease pressure to his foot and if there is not much improvement then he will consider TCC. He has not done this yet as he forgot but he plans on trying this. Discussed decreased salt intake and weight loss as well as possibly having him do light duty which he states his job will not accomodate him. Vascular doesn't feel that he is a candidate for intervention at this time. Discussed importance of avoiding idle sitting and standing to treat his ulcers and encouraged to elevate his feet at or above the level of his heart as much as possible. He would benefit from lymphedema pumps due to his chronic venous insufficiency with recurrent ulcers and stage 2 lymphedema that have failed conservative treatment with elevation and exercises and compression bandaging. Encouraged weight loss, tight glucose control as well. He will follow up in 2 weeks.
--- NOTE | 2019-04-14 20:22 | PN.PCM_ITS ---
(1) Diabetes mellitus, insulin dependent (IDDM), uncontrolled Status: Chronic Current Visit: Yes Qualifiers: Glycemic state: with hyperglycemia Code(s): E10.65 - Type 1 diabetes mellitus with hyperglycemia (2) PVD (peripheral vascular disease) Status: Chronic Current Visit: Yes Code(s): I73.9 - Peripheral vascular disease, unspecified (3) Venous insufficiency of both lower extremities Status: Chronic Current Visit: Yes Code(s): I87.2 - Venous insufficiency (chronic) (peripheral) (4) Ulcer of heel due to diabetes Status: Chronic Current Visit: Yes Qualifiers: Diabetes mellitus type: type 2 Laterality: left Non-pressure ulcer stage: with fat layer exposed Qualified Code(s): E11.621 - Type 2 diabetes mellitus with foot ulcer; L97.422 - Non-pressure chronic ulcer of left heel and midfoot with fat layer exposed Code(s): E11.621 - Type 2 diabetes mellitus with foot ulcer; L97.409 - Non- pressure chronic ulcer of unspecified heel and midfoot with unspecified severity Type of Wound Date of Service: 04/14/19 Chief Complaint: nonhealing ulcers of lower extremities b/l - healed, edema, DFU left heel History of Wound: David is a 48 year old male that presents to the wound center for evaluation and treatment of nonhelaing ulcers of his lower legs that have been present for approximately 4 weeks. He states that his legs became swollen and then developed blisters which itched and broke open leaving sores. He has seen his PCP and they started him on Keflex 500 mg QID and he has been taking this for 4 weeks with minimal improvement. He has also been applying antibiotic ointment. He was also started on lasix which has helped his swelling somewhat. 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 He thinks his last A1C was in August and was 8.0%. He underwent vascular testing which showed normal arterial circulation but incompetence of veins in his lower extremities bilaterally right > left. He saw Dr. Steinberg for evaluation for possible venous ablation but he did not recommend any treatment at this time. Progress of Wound: Kian is here for follow up of left heel DFU. He is tolerating dressings and shows improvement of his ulcer. He saw Anna [place], OT on for evaluation for lymphedema and is in the process of getting compression stockings but he has not been able to tolerate conventional compression stockings previously. He is using tubigrip compression and has been elevating his legs except for during work hours where he does not have the ability to rest or elevate. She has shown him exercises which he can do as well to help control his edema and he has been compliant with these. He has continued to develop new areas even when using tubigrip compression. He has failed surepress and RADHA wraps and Circaid compression as none of them would stay in place. He has not tried his walking boot yet. He tries to offload his foot as much as possible. - Physical Exam Vital Signs Temp Pulse Resp BP 96 F L 79 16 154/99 H 04/14/19 15:42 04/14/19 15:42 04/14/19 15:42 04/14/19 15:42 General: Alert, Oriented x3, Cooperative, No apparent distress HEENT: Atraumatic, Normocephalic Oral: Moist Mucosa Abdomen: Obese Extremities: Edema Skin: Ulcer/ Wound Wound Measurements and Assessment WC - Nurse 1 - General Ulcer Measurement Start: 03/24/19 14:52 Freq: Status: Active Protocol: Activity Type Activity Date Activity User E-Sign Co-Sign Detail Recorded Client Recorded Date Recorded By Document 04/14/19 15:42 [facility] [id number] 04/14/19 15:47 [facility] 04/14/19 15:42 Wound Center Nurse 1 [Ulcer Assessment] #8- LT LAT HEEL -Combined with other wound No -Current Size (cm) - Length 0.1 -Current Size (cm) - Width 1 -Current Size (cm) - Depth 0.2 -Total Square Cm 0.1 -Photo Taken No -Epithelialization Medium 34-66% -Tunneling No -Undermining/Tunneling No -Circular Undermining No -Exudate Amt Small -Exudate Type Serous -Wound Margin Distinct, Outline Attached -Granulation Amt Medium (34-66%) -Granulation Quality [place] -Slough/Fibrin Yes -Necrosis Amt Small (1-33%) -Necrotic Tissue Type Adherent Slough -Texture (Milly-wound Skin Appearance) Assessed Callus Scarring -Moisture (Milly-wound Skin Appearance Assessed ) Dry/Scaly -Color (Milly-wound Skin Appearance) Assessed -Temperature (Milly-wound Skin No Abnormality Appearance) (Pt Warm) -Tenderness on Palpation (Milly-wound No Skin Appearance) -Ulcer Cleansing Rinsed/ Irrigated with Saline -Foul Odor after Cleansing No -Anesthetic Used 5% Lidocaine Gel [Edema Assessment] -Lower Limb Edema Present Yes -Left Calf (cm) 41.2 -Left Ankle (cm) 25.6 WC - Nurse 2 - General Ulcer CM Notes Start: 03/24/19 14:52 Freq: Status: Active Protocol: Activity Type Activity Date Activity User E-Sign Co-Sign Detail Recorded Client Recorded Date Recorded By Document 04/14/19 17:08 DV [id number] 04/14/19 17:14 DV 04/14/19 17:08 Wound Center Nurse 2 [Procedure/Treatment] #8- LT LAT HEEL -Time 17:09 -Correct Patient Yes -Correct Side, Site, Position Yes -Correct Procedure Yes -Procedure Performed Yes -Type of Procedure Debridement -Clinical Debridement Subcutaneous -Post Debridement Size (cm) - Length 0.1 -Post Debridement Size (cm) - Width 0.5 -Post Debridement Size (cm) - Depth 0.1 -Total Square Cm 0.05 -Wound/Ulcer Outcome Not Healed -Ulcer Cleansing Rinsed/ Irrigated with Saline -Foul Odor after Cleansing No -Bioengineered Tissue No -Bleeding Controlled with Pressure -Treatment Response Procedure Tolerated Well [See Physician Procedure note for Specifics] Pain Scale: 0-10 Numeric [Pain] -Is Patient Pain Free? Yes Psych/Mental Status: Normal Affect, Appropriate Debridement Note Post-Debridement Measurements/Treatment WC - Nurse 2 - General Ulcer CM Notes Start: 03/24/19 14:52 Freq: Status: Active Protocol: Activity Type Activity Date Activity User E-Sign Co-Sign Detail Recorded Client Recorded Date Recorded By Document 03/24/19 15:50 DV [id number] 03/24/19 15:54 DV Document 03/31/19 15:45 DV [id number] 03/31/19 15:47 DV Document 04/14/19 17:08 DV [id number] 04/14/19 17:14 DV 03/24/19 03/31/19 04/14/19 15:50 15:45 17:08 Wound Center Nurse 2 #8- LT LAT HEEL -Time 15:51 15:45 17:09 -Correct Patient Yes Yes Yes -Correct Side, Site, Position Yes Yes Yes -Correct Procedure Yes Yes Yes -Procedure Performed Yes Yes Yes -Type of Procedure Debridement Debridement Debridement -Clinical Debridement Subcutaneous Subcutaneous Subcutaneous -Post Debridement Size (cm) - Length 0.2 0.2 0.1 -Post Debridement Size (cm) - Width 0.8 1.0 0.5 -Post Debridement Size (cm) - Depth 0.2 0.2 0.1 -Total Square Cm 0.16 0.20 0.05 -Wound/Ulcer Outcome Not Healed Not Healed Not Healed -Ulcer Cleansing Rinsed/ Rinsed/ Rinsed/ Irrigated with Irrigated with Irrigated with Saline Saline Saline -Foul Odor after Cleansing No No No -Bioengineered Tissue No No No -Bleeding Controlled with Pressure Pressure Pressure -Offloading No No -Treatment Response Procedure Procedure Procedure Tolerated Well Tolerated Well Tolerated Well Pain Scale: 0-10 Numeric Is Patient Pain Free? Yes Yes Yes Wound debrided: left lateral heel Laterality: Left Wound Grade/Stage: Delgado grade 2 Type of Debridement: Excisional debridement Anesthesia Used: 4% Lidocaine Solution, 5% Lidocaine Gel Depth: Down to and including healthy tissue, in the subcutaneous layer Percentage of wound debrided: 100 Instrument Used: 5mm curette Tissue Removed: yellow slough, devitalized tissue Severity: Fat Layer Exposed Amount of bleeding with debridement: Mild Bleeding Controlled with: Compression and gauze Patient tolerated procedure well Assessment/Plan Active Problems Diabetes mellitus, insulin dependent (IDDM), uncontrolled (Chronic) PVD (peripheral vascular disease) (Chronic) Venous insufficiency of both lower extremities (Chronic) Ulcer of heel due to diabetes (Chronic) Assessment: nonhealing venous ulcers of b/l lower extremities - healed. Edema b/l lower extremities. IDDM. lymphedema. DFU left heel Plan: David's ulcer was evaluated and debrided today. He will continue to use Promogran to his heel but will moisten with hydrogel and cover with adaptic. Continue tubigrips for compression. Discussed TCC. He has a CAM walker from having problems with his left foot previously and we discussed trying to use that to see if it would help to decrease pressure to his foot and if there is not much improvement then he will consider TCC. He has not done this yet as he forgot but he plans on trying this. Discussed decreased salt intake and weight loss as well as possibly having him do light duty which he states his job will not accomodate him. Vascular doesn't feel that he is a candidate for intervention at this time. Discussed importance of avoiding idle sitting and standing to treat his ulcers and encouraged to elevate his feet at or above the level of his heart as much as possible. He would benefit from lymphedema pumps due to his chronic venous insufficiency with recurrent ulcers and stage 2 lymphedema that have failed conservative treatment with elevation and exercises and compression bandaging. Encouraged weight loss, tight glucose control as well. He will follow up in 2 weeks.
== END 2019-04-21 23:59 ==
LOC: WC 15:00
PROVIDERS: Family Provider Family Medicine; PCP Family Medicine; Referring Provider Family Medicine; Visit Provider Family Medicine
DX: E10.621 Type 1 diabetes mellitus with foot ulcer (principal); E10.65 Type 1 diabetes mellitus with hyperglycemia; E10.51 Type 1 diabetes mellitus with diabetic peripheral angiopathy without gangrene; I87.2 Venous insufficiency (chronic) (peripheral); L97.422 Non-pressure chronic ulcer of left heel and midfoot with fat layer exposed; R60.0 Localized edema
CPT/HCPCS: 11042

== ENCOUNTER 2019-04-28 12:57 | Outpatient (RCR) | payer BC, SELFPAY ==
[2019-04-22 00:47] VITALS: BP 154/99; PULSE 79; RESP 16; TEMP 35.5
[2019-04-28 15:01] VITALS: BP 126/68; PULSE 87; RESP 18; TEMP 36.6; BMI 46.2
--- NOTE | 2019-04-28 18:11 | PCM.WC.PN ---
(1) Diabetes mellitus, insulin dependent (IDDM), uncontrolled Status: Chronic Current Visit: Yes Qualifiers: Glycemic state: with hyperglycemia Code(s): E10.65 - Type 1 diabetes mellitus with hyperglycemia (2) PVD (peripheral vascular disease) Status: Chronic Current Visit: Yes Code(s): I73.9 - Peripheral vascular disease, unspecified (3) Ulcer of heel due to diabetes Status: Chronic Current Visit: Yes Qualifiers: Diabetes mellitus type: type 2 Laterality: left Non-pressure ulcer stage: with fat layer exposed Qualified Code(s): E11.621 - Type 2 diabetes mellitus with foot ulcer; L97.422 - Non-pressure chronic ulcer of left heel and midfoot with fat layer exposed Code(s): E11.621 - Type 2 diabetes mellitus with foot ulcer; L97.409 - Non-pressure chronic ulcer of unspecified heel and midfoot with unspecified severity Type of Wound Date of Service: 04/28/19 Chief Complaint: nonhealing ulcers of lower extremities b/l - healed, edema, DFU left heel History of Wound: David is a 48 year old male that presents to the wound center for evaluation and treatment of nonhelaing ulcers of his lower legs that have been present for approximately 4 weeks. He states that his legs became swollen and then developed blisters which itched and broke open leaving sores. He has seen his PCP and they started him on Keflex 500 mg QID and he has been taking this for 4 weeks with minimal improvement. He has also been applying antibiotic ointment. He was also started on lasix which has helped his swelling somewhat. 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 He thinks his last A1C was in August and was 8.0%. He underwent vascular testing which showed normal arterial circulation but incompetence of veins in his lower extremities bilaterally right > left. He saw Dr. Steinberg for evaluation for possible venous ablation but he did not recommend any treatment at this time. Progress of Wound: Kian is here for follow up of left heel DFU. He is healed today. - Physical Exam Vital Signs Temp Pulse Resp BP 97.8 F 87 18 126/68 H 04/28/19 15:01 04/28/19 15:01 04/28/19 15:01 04/28/19 15:01 General: Alert, Oriented x3, Cooperative, No apparent distress HEENT: Atraumatic, Normocephalic Oral: Moist Mucosa Abdomen: Obese Extremities: Edema Skin: Ulcer/ Wound Wound Measurements and Assessment - Nurse 1 - General Ulcer Measurement Start: 04/28/19 15:01 Freq: Status: Active Protocol: Activity Type Activity Date Activity User E-Sign Co-Sign Detail Recorded Client Recorded Date Recorded By Document 04/28/19 15:01 [facility] [id number] 04/28/19 15:07 [facility] 04/28/19 15:01 Wound Center Nurse 1 [Ulcer Assessment] #8- LT LAT HEEL -Combined with other wound No -Current Size (cm) - Length 0.1 -Current Size (cm) - Width 0.3 -Current Size (cm) - Depth 0.1 -Total Square Cm 0.03 -Photo Taken No -Epithelialization Large 67-100% -Tunneling No -Undermining/Tunneling No -Circular Undermining No -Exudate Amt None Present -Wound Margin Flat & Intact -Granulation Amt None Present (0 %) -Slough/Fibrin Yes -Necrosis Amt Large (67-100%) -Necrotic Tissue Type Adherent Slough -Texture (Milly-wound Skin Appearance) Callus -Moisture (Milly-wound Skin Appearance Assessed ) Dry/Scaly -Color (Milly-wound Skin Appearance) Assessed -Temperature (Milly-wound Skin No Abnormality Appearance) (Pt Warm) -Tenderness on Palpation (Milly-wound No Skin Appearance) -Ulcer Cleansing Rinsed/ Irrigated with Saline -Foul Odor after Cleansing No -Anesthetic Used 5% Lidocaine Gel [Edema Assessment] -Lower Limb Edema Present Yes -Left Calf (cm) 43.7 -Left Ankle (cm) 24.7 - Nurse 2 - General Ulcer CM Notes Start: 04/28/19 15:01 Freq: Status: Active Protocol: Activity Type Activity Date Activity User E-Sign Co-Sign Detail Recorded Client Recorded Date Recorded By Document 04/28/19 15:19 [id number] 04/28/19 15:24 DV 04/28/19 15:19 Wound Center Nurse 2 [Procedure/Treatment] #8- LT LAT HEEL -Time 15:20 -Correct Patient Yes -Correct Side, Site, Position Yes -Correct Procedure No -Procedure Performed No -Post Debridement Size (cm) - Length 0 -Post Debridement Size (cm) - Width 0 -Post Debridement Size (cm) - Depth 0 -Total Square Cm 0 -Wound/Ulcer Outcome Healed- Epithelialized [See Physician Procedure note for Specifics] Pain Scale: 0-10 Numeric [Pain] -Is Patient Pain Free? Yes Psych/Mental Status: Normal Affect, Appropriate Debridement Note Post-Debridement Measurements/Treatment WC - Nurse 2 - General Ulcer CM Notes Start: 04/28/19 15:01 Freq: Status: Active Protocol: Activity Type Activity Date Activity User E-Sign Co-Sign Detail Recorded Client Recorded Date Recorded By Document 04/28/19 15:19 DV [id number] 04/28/19 15:24 DV 04/28/19 15:19 Wound Center Nurse 2 #8- LT LAT HEEL -Time 15:20 -Correct Patient Yes -Correct Side, Site, Position Yes -Correct Procedure No -Procedure Performed No -Post Debridement Size (cm) - Length 0 -Post Debridement Size (cm) - Width 0 -Post Debridement Size (cm) - Depth 0 -Total Square Cm 0 -Wound/Ulcer Outcome Healed- Epithelialized Pain Scale: 0-10 Numeric Is Patient Pain Free? Yes Wound debrided: left lateral heel Laterality: Left No debridement was completed today Assessment/Plan Active Problems Diabetes mellitus, insulin dependent (IDDM), uncontrolled (Chronic) PVD (peripheral vascular disease) (Chronic) Ulcer of heel due to diabetes (Chronic) Assessment: nonhealing venous ulcers of b/l lower extremities - healed. Edema b/l lower extremities. IDDM. lymphedema. DFU left heel Plan: David's ulcer was evaluated and is healed today. Continue tubigrips for compression. Discussed decreased salt intake and weight loss as well as possibly having him do light duty which he states his job will not accomodate him. Vascular doesn't feel that he is a candidate for intervention at this time. Discussed importance of avoiding idle sitting and standing to treat his ulcers and encouraged to elevate his feet at or above the level of his heart as much as possible. He would benefit from lymphedema pumps due to his chronic venous insufficiency with recurrent ulcers and stage 2 lymphedema that have failed conservative treatment with elevation and exercises and compression bandaging. Encouraged weight loss, tight glucose control as well. He will follow up as needed and is discharged from treatment at this time.
--- NOTE | 2019-04-28 18:14 | PN.PCM_ITS ---
(1) Diabetes mellitus, insulin dependent (IDDM), uncontrolled Status: Chronic Current Visit: Yes Qualifiers: Glycemic state: with hyperglycemia Code(s): E10.65 - Type 1 diabetes mellitus with hyperglycemia (2) PVD (peripheral vascular disease) Status: Chronic Current Visit: Yes Code(s): I73.9 - Peripheral vascular disease, unspecified (3) Ulcer of heel due to diabetes Status: Chronic Current Visit: Yes Qualifiers: Diabetes mellitus type: type 2 Laterality: left Non-pressure ulcer stage: with fat layer exposed Qualified Code(s): E11.621 - Type 2 diabetes mellitus with foot ulcer; L97.422 - Non-pressure chronic ulcer of left heel and midfoot with fat layer exposed Code(s): E11.621 - Type 2 diabetes mellitus with foot ulcer; L97.409 - Non- pressure chronic ulcer of unspecified heel and midfoot with unspecified severity Type of Wound Date of Service: 04/28/19 Chief Complaint: nonhealing ulcers of lower extremities b/l - healed, edema, DFU left heel History of Wound: David is a 48 year old male that presents to the wound center for evaluation and treatment of nonhelaing ulcers of his lower legs that have been present for approximately 4 weeks. He states that his legs became swollen and then developed blisters which itched and broke open leaving sores. He has seen his PCP and they started him on Keflex 500 mg QID and he has been taking this for 4 weeks with minimal improvement. He has also been applying antibiotic ointment. He was also started on lasix which has helped his swelling somewhat. 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 He thinks his last A1C was in August and was 8.0%. He underwent vascular testing which showed normal arterial circulation but incompetence of veins in his lower extremities bilaterally right > left. He saw Dr. Steinberg for evaluation for possible venous ablation but he did not recommend any treatment at this time. Progress of Wound: Kian is here for follow up of left heel DFU. He is healed today. - Physical Exam Vital Signs Temp Pulse Resp BP 97.8 F 87 18 126/68 H 04/28/19 15:01 04/28/19 15:01 04/28/19 15:01 04/28/19 15:01 General: Alert, Oriented x3, Cooperative, No apparent distress HEENT: Atraumatic, Normocephalic Oral: Moist Mucosa Abdomen: Obese Extremities: Edema Skin: Ulcer/ Wound Wound Measurements and Assessment - Nurse 1 - General Ulcer Measurement Start: 04/28/19 15:01 Freq: Status: Active Protocol: Activity Type Activity Date Activity User E-Sign Co-Sign Detail Recorded Client Recorded Date Recorded By Document 04/28/19 15:01 [facility] [id number] 04/28/19 15:07 [facility] 04/28/19 15:01 Wound Center Nurse 1 [Ulcer Assessment] #8- LT LAT HEEL -Combined with other wound No -Current Size (cm) - Length 0.1 -Current Size (cm) - Width 0.3 -Current Size (cm) - Depth 0.1 -Total Square Cm 0.03 -Photo Taken No -Epithelialization Large 67-100% -Tunneling No -Undermining/Tunneling No -Circular Undermining No -Exudate Amt None Present -Wound Margin Flat & Intact -Granulation Amt None Present (0 %) -Slough/Fibrin Yes -Necrosis Amt Large (67-100%) -Necrotic Tissue Type Adherent Slough -Texture (Milly-wound Skin Appearance) Callus -Moisture (Milly-wound Skin Appearance Assessed ) Dry/Scaly -Color (Milly-wound Skin Appearance) Assessed -Temperature (Milly-wound Skin No Abnormality Appearance) (Pt Warm) -Tenderness on Palpation (Milly-wound No Skin Appearance) -Ulcer Cleansing Rinsed/ Irrigated with Saline -Foul Odor after Cleansing No -Anesthetic Used 5% Lidocaine Gel [Edema Assessment] -Lower Limb Edema Present Yes -Left Calf (cm) 43.7 -Left Ankle (cm) 24.7 - Nurse 2 - General Ulcer CM Notes Start: 04/28/19 15:01 Freq: Status: Active Protocol: Activity Type Activity Date Activity User E-Sign Co-Sign Detail Recorded Client Recorded Date Recorded By Document 04/28/19 15:19 [id number] 04/28/19 15:24 DV 04/28/19 15:19 Wound Center Nurse 2 [Procedure/Treatment] #8- LT LAT HEEL -Time 15:20 -Correct Patient Yes -Correct Side, Site, Position Yes -Correct Procedure No -Procedure Performed No -Post Debridement Size (cm) - Length 0 -Post Debridement Size (cm) - Width 0 -Post Debridement Size (cm) - Depth 0 -Total Square Cm 0 -Wound/Ulcer Outcome Healed- Epithelialized [See Physician Procedure note for Specifics] Pain Scale: 0-10 Numeric [Pain] -Is Patient Pain Free? Yes Psych/Mental Status: Normal Affect, Appropriate Debridement Note Post-Debridement Measurements/Treatment WC - Nurse 2 - General Ulcer CM Notes Start: 04/28/19 15:01 Freq: Status: Active Protocol: Activity Type Activity Date Activity User E-Sign Co-Sign Detail Recorded Client Recorded Date Recorded By Document 04/28/19 15:19 DV [id number] 04/28/19 15:24 DV 04/28/19 15:19 Wound Center Nurse 2 #8- LT LAT HEEL -Time 15:20 -Correct Patient Yes -Correct Side, Site, Position Yes -Correct Procedure No -Procedure Performed No -Post Debridement Size (cm) - Length 0 -Post Debridement Size (cm) - Width 0 -Post Debridement Size (cm) - Depth 0 -Total Square Cm 0 -Wound/Ulcer Outcome Healed- Epithelialized Pain Scale: 0-10 Numeric Is Patient Pain Free? Yes Wound debrided: left lateral heel Laterality: Left No debridement was completed today Assessment/Plan Active Problems Diabetes mellitus, insulin dependent (IDDM), uncontrolled (Chronic) PVD (peripheral vascular disease) (Chronic) Ulcer of heel due to diabetes (Chronic) Assessment: nonhealing venous ulcers of b/l lower extremities - healed. Edema b/l lower extremities. IDDM. lymphedema. DFU left heel Plan: David's ulcer was evaluated and is healed today. Continue tubigrips for compression. Discussed decreased salt intake and weight loss as well as possibly having him do light duty which he states his job will not accomodate him. Vascular doesn't feel that he is a candidate for intervention at this time. Discussed importance of avoiding idle sitting and standing to treat his ulcers and encouraged to elevate his feet at or above the level of his heart as much as possible. He would benefit from lymphedema pumps due to his chronic venous insufficiency with recurrent ulcers and stage 2 lymphedema that have failed conservative treatment with elevation and exercises and compression bandaging. Encouraged weight loss, tight glucose control as well. He will follow up as needed and is discharged from treatment at this time.
== END 2019-05-21 23:59 ==
LOC: WC 12:57
PROVIDERS: Family Provider Family Medicine; PCP Family Medicine; Referring Provider Family Medicine; Visit Provider Family Medicine
DX: Z09 Encounter for follow-up examination after completed treatment for conditions other than malignant neoplasm (principal); I89.0 Lymphedema, not elsewhere classified; E10.65 Type 1 diabetes mellitus with hyperglycemia; E10.51 Type 1 diabetes mellitus with diabetic peripheral angiopathy without gangrene
CPT/HCPCS: 99212; G0463

== ENCOUNTER 2019-09-08 14:45 | Outpatient (RCR) | payer BC, SELFPAY ==
[2019-09-01 15:20] VITALS: BP 155/89; PULSE 84; RESP 18; TEMP 36.2; BMI 46.2
--- NOTE | 2019-09-01 20:02 | HP.PCM_ITS ---
(1) Diabetes mellitus, insulin dependent (IDDM), uncontrolled Status: Chronic Current Visit: Yes Qualifiers: Glycemic state: with hyperglycemia Code(s): E10.65 - Type 1 diabetes mellitus with hyperglycemia (2) Venous insufficiency of both lower extremities Status: Chronic Current Visit: Yes Code(s): I87.2 - Venous insufficiency (chronic) (peripheral) (3) Ulcer of heel due to diabetes Status: Chronic Current Visit: Yes Qualifiers: Diabetes mellitus type: type 2 Laterality: left Non-pressure ulcer stage: with fat layer exposed Qualified Code(s): E11.621 - Type 2 diabetes mellitus w ith foot ulcer; L97.422 - Non-pressure chronic ulcer of left heel and midfoot with fat layer exposed Code(s): E11.621 - Type 2 diabetes mellitus with foot ulcer; L97.409 - Non- pressure chronic ulcer of unspecified heel and midfoot with unspecified severity History of Present Illness Date of Service: 09/01/19 Chief Complaint: DFU left heel History of Wound: David is a 48 year old male that presents to the wound center for evaluation and treatment of nonhelaing ulcer of his left heel. He noticed this approximately 2 weeks ago. His mother has been applying Promogran to the ulcer and covering it with gauze and an ABD nurse's hat. He has moderate drainage from the ulcer and he has not been on any recent antibiotics. He has had an ulcer at this site previously. He has not obtained diabetic shoes or insoles. 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 His last A1C was 08/17/19 and was 11.6%. He underwent vascular testing which showed normal arterial circulation but incompetence of veins in his lower extremities bilaterally right > left. He saw Dr. Steinberg for evaluation for possible venous ablation but he did not recommend any surgical treatment. Past Medical History Past Medical History: Chronic Problems Diabetes mellitus, insulin dependent (IDDM), uncontrolled (Chronic) HTN (hypertension) (Chronic) Hyperlipidemia (Chronic) PAD (peripheral artery disease) (Chronic) PVD (peripheral vascular disease) (Chronic) Venous insufficiency of both lower extremities (Chronic) Edema of both legs (Chronic) Venous ulcers of both lower extremities (Chronic) Chronic venous hypertension w/ulcer and inflammation involv both sides (Chronic) Lymphedema of both lower extremities (Chronic) Ulcer of heel due to diabetes (Chronic) Surgical History: no surgical history Allergies/Adverse Reactions: Allergies liraglutide [From Victoza] Allergy (Verified 05/26/18 10:47) Rash metformin [From Glucophage] Allergy (Verified 05/26/18 10:47) Rash Penicillins [PCN] Allergy (Verified 05/26/18 10:47) Rash Sulfa (Sulfonamide Antibiotics) Allergy (Verified 05/26/18 10:47) Rash Home Medications: Ambulatory Orders Medication Instructions Recorded Amlodipine [Norvasc] 5 mg PO DAILY 05/26/18 Losartan Potassium [Cozaar] 25 mg PO DAILY 05/26/18 Metoprolol Tartrate [Lopressor 25 mg PO BID 05/26/18 (Beta Cem)] Oxycodone [Oxyir] 5 - 10 mg PO Q6H PRN PRN 4 Days 05/26/18 #20 tab Pioglitazone [Actos] 45 mg PO DAILY 05/26/18 glipiZIDE [Glucotrol] 10 mg PO BIDAC 05/26/18 oxycodone-acetaminophen 5 mg-325 1 tab PO Q6H PRN #30 tab 06/23/18 mg tablet Keflex 500 mg PO 4X/DAY 10/07/18 Lasix 40 mg PO BID 10/07/18 Potassium Chloride 10 meq PO DAILY 10/07/18 Simvastatin 40 mg PO QHS 10/07/18 - Family History Maternal No pertinent history Paternal No pertinent history Lives: With Family Smoking Status: Never smoker Tobacco Use: Non-smoker Alcohol: None Drugs: None Review of Systems Constitutional: Denies: Chills, Fever, Weight Change Eyes: Denies: Pain, Vision Change HEENT: Denies: Difficulty Hearing, Difficulty Swallowing, Sinus Congestion Cardiovascular: Denies: Chest Pain, Palpitations Respiratory: Denies: Cough, Shortness of Breath Gastrointestinal: Denies: Diarrhea, Nausea, Vomiting Genitourinary: Denies: Dysuria, Hematuria Skin: Reports: Wounds Endocrine: Denies: Heat/ Cold Intolerance, Polydipsia, Polyuria Hematologic/ Lymphatic: Denies: Easy Bruising, Easy Bleeding - Physical Exam Vital Signs Temp Pulse Resp BP 97.1 F L 84 18 155/89 H 09/01/19 15:20 09/01/19 15:20 09/01/19 15:20 09/01/19 15:20 General: Alert, Oriented x3, Cooperative, No apparent distress HEENT: Atraumatic, Normocephalic Oral: Moist Mucosa Neck: Supple Lungs: Clear to auscultation Cardiovascular: Regular rate, Regular Rhythm Abdomen: Obese Extremities: Edema Skin: Ulcer/ Wound, - - callous of left heel Wound Measurements and Assessment WC - Nurse 1 - General Ulcer Measurement Start: 09/01/19 15:20 Freq: Status: Active Protocol: Activity Type Activity Date Activity User E-Sign Co-Sign Detail Recorded Client Recorded Date Recorded By Document 09/01/19 15:20 RB [id number] 09/01/19 15:31 RB 09/01/19 15:20 Wound Center Nurse 1 [Ulcer Assessment] #10 L Heel lateral -Combined with other wound No -Current Size (cm) - Length 0.8 -Current Size (cm) - Width 0.3 -Current Size (cm) - Depth 0.2 -Total Square Cm 0.24 -Tunneling No -Undermining/Tunneling No -Circular Undermining No -Exudate Amt Small -Exudate Type Serosanguineous -Wound Margin Flat & Intact -Granulation Amt Medium (34-66%) -Granulation Quality [place] -Slough/Fibrin Yes -Necrosis Amt Small (1-33%) -Necrotic Tissue Type Adherent Slough -Structure Exposed N/A -Texture (Milly-wound Skin Appearance) Assessed,Callus -Moisture (Milly-wound Skin Appearance Maceration ) -Color (Milly-wound Skin Appearance) Assessed -Temperature (Milly-wound Skin No Abnormality Appearance) (Pt Warm) -Tenderness on Palpation (Milly-wound No Skin Appearance) -Ulcer Cleansing Wound Cleanser -Foul Odor after Cleansing No -Anesthetic Used 5% Lidocaine Gel [Edema Assessment] -Lower Limb Edema Present Yes -Right Calf (cm) 46.5 -Right Ankle (cm) 26.3 -Left Calf (cm) 43.5 -Left Ankle (cm) 23.5 WC - Nurse 2 - General Ulcer CM Notes Start: 09/01/19 15:20 Freq: Status: Active Protocol: Activity Type Activity Date Activity User E-Sign Co-Sign Detail Recorded Client Recorded Date Recorded By Document 09/01/19 16:20 MW [id number] 09/01/19 16:38 MW 10/11/19 16:20 Wound Center Nurse 2 [Procedure/Treatment] #10 L Heel lateral -Time 16:20 -Correct Patient Yes -Correct Side, Site, Position Yes -Correct Procedure Yes -Procedure Performed Yes -Type of Procedure Debridement -Clinical Debridement Subcutaneous -Post Debridement Size (cm) - Length 0.3 -Post Debridement Size (cm) - Width 0.6 -Post Debridement Size (cm) - Depth 0.2 -Total Square Cm 0.18 -Wound/Ulcer Outcome Not Healed -Ulcer Cleansing Rinsed/ Irrigated with Saline -Foul Odor after Cleansing No -Bioengineered Tissue No -Bleeding Controlled with Pressure -Offloading No -Treatment Response Procedure Tolerated Well [See Physician Procedure note for Specifics] Pain Scale: 0-10 Numeric [Pain] -Is Patient Pain Free? Yes Psych/Mental Status: Normal Affect, Appropriate Debridement Note Post-Debridement Measurements/Treatment WC - Nurse 2 - General Ulcer CM Notes Start: 09/01/19 15:20 Freq: Status: Active Protocol: Activity Type Activity Date Activity User E-Sign Co-Sign Detail Recorded Client Recorded Date Recorded By Document 09/01/19 16:20 MW [id number] 09/01/19 16:38 MW 09/01/19 16:20 Wound Center Nurse 2 #10 L Heel lateral -Time 16:20 -Correct Patient Yes -Correct Side, Site, Position Yes -Correct Procedure Yes -Procedure Performed Yes -Type of Procedure Debridement -Clinical Debridement Subcutaneous -Post Debridement Size (cm) - Length 0.3 -Post Debridement Size (cm) - Width 0.6 -Post Debridement Size (cm) - Depth 0.2 -Total Square Cm 0.18 -Wound/Ulcer Outcome Not Healed -Ulcer Cleansing Rinsed/ Irrigated with Saline -Foul Odor after Cleansing No -Bioengineered Tissue No -Bleeding Controlled with Pressure -Offloading No -Treatment Response Procedure Tolerated Well Pain Scale: 0-10 Numeric Is Patient Pain Free? Yes Wound debrided: left heel lateral Laterality: Left Wound Grade/Stage: grade 1 Anesthesia Used: 4% Lidocaine Solution, 5% Lidocaine Gel Depth: Down to and including healthy tissue, in the subcutaneous layer Percentage of wound debrided: 100 Instrument Used: #15 blade, Forceps Tissue Removed: yellow slough, devitalized tissue Severity: Fat Layer Exposed Amount of bleeding with debridement: Mild Bleeding Controlled with: Compression and gauze Patient tolerated procedure well Assessment/Plan Active Problems Diabetes mellitus, insulin dependent (IDDM), uncontrolled (Chronic) Venous insufficiency of both lower extremities (Chronic) Ulcer of heel due to diabetes (Chronic) Assessment: nonhealing venous ulcers of b/l lower extremities - healed. Edema b/l lower extremities. IDDM. lymphedema. DFU left heel Plan: David's ulcer was evaluated and debrided. Will have him continue to use promogran as a dressing and cover with adaptic and gauze with changes every other day. Continue tubigrips for compression. He was encouraged to obtain diabetic shoes and insoles. Discussed decreased salt intake and weight loss as well as possibly having him do light duty which he states his job will not accomodate him. Vascular doesn't feel that he is a candidate for intervention at this time. Discussed importance of avoiding idle sitting and standing to treat his ulcers and encouraged to elevate his feet at or above the level of his heart as much as possible. He would benefit from lymphedema pumps due to his chronic venous insufficiency with recurrent ulcers and stage 2 lymphedema that have failed conservative treatment with elevation and exercises and compression bandaging. Encouraged weight loss, tight glucose control as well. He will follow up in 1 week.
[2019-09-08 14:45] VITALS: BP 144/91; PULSE 94; RESP 18; TEMP 36.6; BMI 46.2
--- NOTE | 2019-09-08 18:59 | PCM.WC.PN ---
(1) Diabetes mellitus, insulin dependent (IDDM), uncontrolled Status: Chronic Current Visit: Yes Qualifiers: Glycemic state: with hyperglycemia Code(s): E10.65 - Type 1 diabetes mellitus with hyperglycemia (2) Venous insufficiency of both lower extremities Status: Chronic Current Visit: Yes Code(s): I87.2 - Venous insufficiency (chronic) (peripheral) (3) Ulcer of heel due to diabetes Status: Chronic Current Visit: Yes Qualifiers: Diabetes mellitus type: type 2 Laterality: left Non-pressure ulcer stage: with fat layer exposed Qualified Code(s): E11.621 - Type 2 diabetes mellitus with foot ulcer; L97.422 - Non-pressure chronic ulcer of left heel and midfoot with fat layer exposed Code(s): E11.621 - Type 2 diabetes mellitus with foot ulcer; L97.409 - Non-pressure chronic ulcer of unspecified heel and midfoot with unspecified severity Type of Wound Date of Service: 09/08/19 Chief Complaint: DFU left heel History of Wound: David is a 48 year old male that presents to the wound center for evaluation and treatment of nonhelaing ulcer of his left heel. He noticed this approximately 2 weeks ago. His mother has been applying Promogran to the ulcer and covering it with gauze and an ABD nurse's hat. He has moderate drainage from the ulcer and he has not been on any recent antibiotics. He has had an ulcer at this site previously. He has not obtained diabetic shoes or insoles. 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 His last A1C was 08/17/19 and was 11.6%. He underwent vascular testing which showed normal arterial circulation but incompetence of veins in his lower extremities bilaterally right > left. He saw Dr. Steinberg for evaluation for possible venous ablation but he did not recommend any surgical treatment. Progress of Wound: Yoseph is here for follow up of a DFU of his left heel. He has been tolerating Promogran dressing and has had improvement in the size of his ulcer. He denies increased drainage or odor. He does have pain in his toes which may be neuropathic in nature. - Physical Exam Vital Signs Temp Pulse Resp BP 97.8 F 94 18 144/91 H 09/08/19 14:45 09/08/19 14:45 09/08/19 14:45 09/08/19 14:45 General: Alert, Oriented x3, Cooperative, No apparent distress HEENT: Atraumatic, Normocephalic Oral: Moist Mucosa Abdomen: Obese Extremities: Edema Skin: Ulcer/ Wound Wound Measurements and Assessment WC - Nurse 1 - General Ulcer Measurement Start: 09/01/19 15:20 Freq: Status: Active Protocol: Activity Type Activity Date Activity User E-Sign Co-Sign Detail Recorded Client Recorded Date Recorded By Document 09/08/19 14:45 MARIA G [id number] 09/08/19 14:51 DL 09/08/19 14:45 Wound Center Nurse 1 [Ulcer Assessment] #10 L Heel lateral -Current Size (cm) - Length 0.2 -Current Size (cm) - Width 0.2 -Current Size (cm) - Depth 0.3 -Total Square Cm 0.04 -Photo Taken No -Maximum Distance #2 (cm) 0.3 -Circular Undermining Yes -Exudate Amt Small -Exudate Type Serosanguineous -Wound Margin Distinct, Outline Attached -Granulation Amt Small (1-33%) -Granulation Quality Pale -Necrosis Amt Small (1-33%) -Necrotic Tissue Type Adherent Slough -Structure Exposed N/A -Texture (Milly-wound Skin Appearance) Scarring -Moisture (Milly-wound Skin Appearance Dry/Scaly ) -Color (Milly-wound Skin Appearance) No Abnormality -Temperature (Milly-wound Skin No Abnormality Appearance) (Pt Warm) -Tenderness on Palpation (Milly-wound No Skin Appearance) -Ulcer Cleansing Rinsed/ Irrigated with Saline -Foul Odor after Cleansing No -Anesthetic Used 5% Lidocaine Gel [Edema Assessment] -Left Calf (cm) 44.5 -Left Ankle (cm) 23.5 WC - Nurse 2 - General Ulcer CM Notes Start: 09/01/19 15:20 Freq: Status: Active Protocol: Activity Type Activity Date Activity User E-Sign Co-Sign Detail Recorded Client Recorded Date Recorded By Document 09/08/19 16:02 [id number] 09/08/19 16:12 09/08/19 16:02 Wound Center Nurse 2 [Procedure/Treatment] #10 L Heel lateral -Time 16:03 -Correct Patient Yes -Correct Side, Site, Position Yes -Correct Procedure Yes -Procedure Performed Yes -Type of Procedure Debridement -Clinical Debridement Subcutaneous -Post Debridement Size (cm) - Length 0.2 -Post Debridement Size (cm) - Width 0.2 -Post Debridement Size (cm) - Depth 0.1 -Total Square Cm 0.04 -Wound/Ulcer Outcome Not Healed -Ulcer Cleansing Not Cleansed -Foul Odor after Cleansing No -Bioengineered Tissue No -Bleeding Controlled with NA -Offloading No -Treatment Response Procedure Tolerated Well [See Physician Procedure note for Specifics] Pain Scale: 0-10 Numeric [Pain] -Is Patient Pain Free? Yes Psych/Mental Status: Normal Affect, Appropriate Debridement Note Post-Debridement Measurements/Treatment WC - Nurse 2 - General Ulcer CM Notes Start: 09/01/19 15:20 Freq: Status: Active Protocol: Activity Type Activity Date Activity User E-Sign Co-Sign Detail Recorded Client Recorded Date Recorded By Document 09/01/19 16:20 MW [id number] 09/01/19 16:38 MW Document 09/08/19 16:02 [id number] 09/08/19 16:12 09/01/19 09/08/19 16:20 16:02 Wound Center Nurse 2 #10 L Heel lateral -Time 16:20 16:03 -Correct Patient Yes Yes -Correct Side, Site, Position Yes Yes -Correct Procedure Yes Yes -Procedure Performed Yes Yes -Type of Procedure Debridement Debridement -Clinical Debridement Subcutaneous Subcutaneous -Post Debridement Size (cm) - Length 0.3 0.2 -Post Debridement Size (cm) - Width 0.6 0.2 -Post Debridement Size (cm) - Depth 0.2 0.1 -Total Square Cm 0.18 0.04 -Wound/Ulcer Outcome Not Healed Not Healed -Ulcer Cleansing Rinsed/ Not Cleansed Irrigated with Saline -Foul Odor after Cleansing No No -Bioengineered Tissue No No -Bleeding Controlled with Pressure NA -Offloading No No -Treatment Response Procedure Procedure Tolerated Well Tolerated Well Pain Scale: 0-10 Numeric Is Patient Pain Free? Yes Yes Wound debrided: left heel lateral Laterality: Left Wound Grade/Stage: Delgado grade 1 Type of Debridement: Excisional debridement Anesthesia Used: 4% Lidocaine Solution, 5% Lidocaine Gel Depth: Down to and including healthy tissue, in the subcutaneous layer Percentage of wound debrided: 100 Instrument Used: 3mm curette Tissue Removed: yellow slough, devitalized tissue Severity: Fat Layer Exposed Amount of bleeding with debridement: Mild Bleeding Controlled with: Compression and gauze Patient tolerated procedure well Assessment/Plan Active Problems Diabetes mellitus, insulin dependent (IDDM), uncontrolled (Chronic) Venous insufficiency of both lower extremities (Chronic) Ulcer of heel due to diabetes (Chronic) Assessment: nonhealing venous ulcers of b/l lower extremities - healed. Edema b/l lower extremities. IDDM. lymphedema. DFU left heel Plan: David's ulcer was evaluated and debrided. Will have him continue to use promogran as a dressing and cover with adaptic and gauze with changes every other day. Continue tubigrips for compression. He was encouraged to obtain diabetic shoes and insoles. Discussed decreased salt intake and weight loss as well as possibly having him do light duty which he states his job will not accomodate him. Vascular doesn't feel that he is a candidate for intervention at this time. Discussed importance of avoiding idle sitting and standing to treat his ulcers and encouraged to elevate his feet at or above the level of his heart as much as possible. He would benefit from lymphedema pumps due to his chronic venous insufficiency with recurrent ulcers and stage 2 lymphedema that have failed conservative treatment with elevation and exercises and compression bandaging. Encouraged weight loss, tight glucose control as well. He will follow up in 2 weeks.
== END 2019-09-21 23:59 ==
LOC: WC 14:45
PROVIDERS: Family Provider Family Medicine; PCP Family Medicine; Visit Provider Family Medicine
DX: E10.621 Type 1 diabetes mellitus with foot ulcer (principal); L97.422 Non-pressure chronic ulcer of left heel and midfoot with fat layer exposed; Z79.4 Long term (current) use of insulin; I87.2 Venous insufficiency (chronic) (peripheral); I10 Essential (primary) hypertension; E78.5 Hyperlipidemia, unspecified; E10.51 Type 1 diabetes mellitus with diabetic peripheral angiopathy without gangrene; I70.209 Unspecified atherosclerosis of native arteries of extremities, unspecified extremity; R60.0 Localized edema; Z79.899 Other long term (current) drug therapy
CPT/HCPCS: 11042; 99213; G0463

== ENCOUNTER 2019-09-22 13:31 | Outpatient (RCR) | payer BC, SELFPAY ==
[2019-09-22 01:27] VITALS: BP 144/91; PULSE 94; RESP 18; TEMP 36.6
[2019-09-22 15:30] VITALS: BP 126/71; PULSE 86; RESP 18; TEMP 36.6; BMI 46.2
--- NOTE | 2019-09-22 18:58 | PCM.WC.PN ---
(1) Diabetes mellitus, insulin dependent (IDDM), uncontrolled Status: Chronic Current Visit: Yes Qualifiers: Glycemic state: with hyperglycemia Code(s): E10.65 - Type 1 diabetes mellitus with hyperglycemia (2) HTN (hypertension) Status: Chronic Current Visit: Yes Qualifiers: Hypertension type: essential hypertension Code(s): I10 - Essential (primary) hypertension (3) PVD (peripheral vascular disease) Status: Chronic Current Visit: Yes Code(s): I73.9 - Peripheral vascular disease, unspecified (4) Venous insufficiency of both lower extremities Status: Chronic Current Visit: No Code(s): I87.2 - Venous insufficiency (chronic) (peripheral) (5) Ulcer of heel due to diabetes Status: Chronic Current Visit: Yes Qualifiers: Diabetes mellitus type: type 2 Laterality: left Non-pressure ulcer stage: with fat layer exposed Qualified Code(s): E11.621 - Type 2 diabetes mellitus with foot ulcer; L97.422 - Non-pressure chronic ulcer of left heel and midfoot with fat layer exposed Code(s): E11.621 - Type 2 diabetes mellitus with foot ulcer; L97.409 - Non-pressure chronic ulcer of unspecified heel and midfoot with unspecified severity Type of Wound Date of Service: 09/22/19 Chief Complaint: DFU left heel History of Wound: David is a 48 year old male that presents to the wound center for evaluation and treatment of nonhelaing ulcer of his left heel. He noticed this approximately 2 weeks ago. His mother has been applying Promogran to the ulcer and covering it with gauze and an ABD nurse's hat. He has moderate drainage from the ulcer and he has not been on any recent antibiotics. He has had an ulcer at this site previously. He has not obtained diabetic shoes or insoles. 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 His last A1C was 08/17/19 and was 11.6%. He underwent vascular testing which showed normal arterial circulation but incompetence of veins in his lower extremities bilaterally right > left. He saw Dr. Steinberg for evaluation for possible venous ablation but he did not recommend any surgical treatment. Progress of Wound: Yoseph is here for follow up of a DFU of his left heel. It is healed today. He continues to use compression and treats his calluses multiple times/week in prevention of future ulcers. - Physical Exam Vital Signs Temp Pulse Resp BP 97.8 F 86 18 126/71 H 09/22/19 15:30 09/22/19 15:30 09/22/19 15:30 09/22/19 15:30 General: Alert, Oriented x3, Cooperative, No apparent distress HEENT: Atraumatic, Normocephalic Oral: Moist Mucosa Lungs: Clear to auscultation Cardiovascular: Regular rate, Regular Rhythm Abdomen: Obese Extremities: Edema Skin: Ulcer/ Wound Wound Measurements and Assessment WC - Nurse 1 - General Ulcer Measurement Start: 09/22/19 15:30 Freq: Status: Active Protocol: Activity Type Activity Date Activity User E-Sign Co-Sign Detail Recorded Client Recorded Date Recorded By Document 09/22/19 15:30 MARIA G [id number] 09/22/19 15:34 DL 09/22/19 15:30 Wound Center Nurse 1 [Ulcer Assessment] #10 L Heel lateral -Current Size (cm) - Length 0.1 -Current Size (cm) - Width 0.1 -Current Size (cm) - Depth 0.1 -Total Square Cm 0.01 -Photo Taken No -Exudate Amt None Present -Wound Margin Flat & Intact -Granulation Amt Large (67-100%) -Granulation Quality [place] -Necrosis Amt Small (1-33%) -Necrotic Tissue Type Adherent Slough -Structure Exposed N/A -Texture (Milly-wound Skin Appearance) Scarring -Moisture (Milly-wound Skin Appearance Dry/Scaly ) -Color (Milly-wound Skin Appearance) No Abnormality -Temperature (Milly-wound Skin No Abnormality Appearance) (Pt Warm) -Tenderness on Palpation (Milly-wound No Skin Appearance) -Ulcer Cleansing Rinsed/ Irrigated with Saline -Foul Odor after Cleansing No -Anesthetic Used 5% Lidocaine Gel [Edema Assessment] -Left Calf (cm) 41 -Left Ankle (cm) 22.6 WC - Nurse 2 - General Ulcer CM Notes Start: 09/22/19 15:30 Freq: Status: Active Protocol: Activity Type Activity Date Activity User E-Sign Co-Sign Detail Recorded Client Recorded Date Recorded By Document 09/22/19 16:37 [id number] 09/22/19 16:39 09/22/19 16:37 Wound Center Nurse 2 [Procedure/Treatment] #10 L Heel lateral -Time 16:38 -Correct Patient Yes -Correct Side, Site, Position Yes -Correct Procedure Yes -Procedure Performed No -Post Debridement Size (cm) - Length 0 -Post Debridement Size (cm) - Width 0 -Post Debridement Size (cm) - Depth 0 -Total Square Cm 0 -Ulcer Cleansing Not Cleansed -Bioengineered Tissue No -Bleeding Controlled with NA -Offloading Yes [See Physician Procedure note for Specifics] Pain Scale: 0-10 Numeric [Pain] -Is Patient Pain Free? Yes Psych/Mental Status: Normal Affect, Appropriate Debridement Note Post-Debridement Measurements/Treatment WC - Nurse 2 - General Ulcer CM Notes Start: 09/22/19 15:30 Freq: Status: Active Protocol: Activity Type Activity Date Activity User E-Sign Co-Sign Detail Recorded Client Recorded Date Recorded By Document 09/22/19 16:37 [id number] 09/22/19 16:39 09/22/19 16:37 Wound Center Nurse 2 #10 L Heel lateral -Time 16:38 -Correct Patient Yes -Correct Side, Site, Position Yes -Correct Procedure Yes -Procedure Performed No -Post Debridement Size (cm) - Length 0 -Post Debridement Size (cm) - Width 0 -Post Debridement Size (cm) - Depth 0 -Total Square Cm 0 -Ulcer Cleansing Not Cleansed -Bioengineered Tissue No -Bleeding Controlled with NA -Offloading Yes Pain Scale: 0-10 Numeric Is Patient Pain Free? Yes Wound debrided: left lateral heel Laterality: Left No debridement was completed today - Ulcer is healed Assessment/Plan Active Problems Diabetes mellitus, insulin dependent (IDDM), uncontrolled (Chronic) HTN (hypertension) (Chronic) PVD (peripheral vascular disease) (Chronic) Ulcer of heel due to diabetes (Chronic) Assessment: nonhealing venous ulcers of b/l lower extremities - healed. Edema b/l lower extremities. IDDM. lymphedema. DFU left heel Plan: David's ulcer was evaluated and is healed. He was encouraged to obtain diabetic shoes and insoles. Discussed decreased salt intake and weight loss as well as possibly having him do light duty which he states his job will not accomodate him. Vascular doesn't feel that he is a candidate for intervention at this time. Discussed importance of avoiding idle sitting and standing to treat his ulcers and encouraged to elevate his feet at or above the level of his heart as much as possible. He would benefit from lymphedema pumps due to his chronic venous insufficiency with recurrent ulcers and stage 2 lymphedema that have failed conservative treatment with elevation and exercises and compression bandaging. Encouraged weight loss, tight glucose control as well. He will follow up as needed but is discharged at this time.
== END 2019-10-21 23:59 ==
LOC: WC 13:31
PROVIDERS: Family Provider Family Medicine; PCP Family Medicine; Visit Provider Family Medicine
DX: Z09 Encounter for follow-up examination after completed treatment for conditions other than malignant neoplasm (principal); E10.65 Type 1 diabetes mellitus with hyperglycemia; I89.0 Lymphedema, not elsewhere classified; E10.51 Type 1 diabetes mellitus with diabetic peripheral angiopathy without gangrene; I10 Essential (primary) hypertension
CPT/HCPCS: 99212; G0463

== ENCOUNTER → 2020-02-14 08:03 | Outpatient (CLI) | payer BC, SELFPAY ==
[2020-02-14 08:28] LABS: Absolute Lymphocyte Count 1.13 X10^3/uL (0.83-4.51); Absolute Neutrophil Count 2.7 X10^3/uL (2.0-7.7); Basophil# 0.02 X10^3/uL; Basophil% 0.5 % (0-1); Eosinophils% 2.3 % (0-5); Hematocrit 42.9 % (40-54); Hemoglobin 14.5 g/dL (13.0-16.5); Lymphocyte # 1.13 X10^3/ul (4.0); Lymphocyte % 25.5 % (19-41); Mean Corp Hgb Conc 33.8 g/dL (32-36); Mean Corpuscular Hgb 28.4 pg (27.0-32.0); Mean Platelet Vol. 10.5 fl (6.2-12.0); Monocyte# 0.46 X10^3/uL; Monocyte% 10.4 % (0-10); NRBC Flagged by Analyzer 0 % (0-5); Neutrophil # 2.72 X10^3/uL (2.7-7.7); Neutrophil % 61.1 % (47-70); Platelet Count 223 K/mm3 (150-450); RBC Distribution Width CV 13.1 % (11.6-14.6); RBC Distribution Width SD 40.1 fl (35.1-43.9); Red Blood Count 5.11 M/mm3 (4.6-6.2); White Blood Count 4.4 K/mm3 (4.4-11.0)
[2020-02-14 08:59] LABS: Hemoglobin A1c 12.6 % (4.2-6.3)
[2020-02-14 09:01] LABS: ALB/GLOB Ratio 1.1 RATIO (0.9-2.4); AST(SGOT) 24 U/L (15-37); Alanine Aminotransfer ALT/SGPT 32 U/L (16-61); Albumin, Serum 3.6 g/dL (3.2-5.0); Alkaline Phosphatase 138 U/L (45-117); Anion Gap 8 (5-15); BUN 13 mg/dL (7-18); BUN/Creat Ratio 15.1 RATIO (10-20); Calcium,Total 8.4 mg/dL (8.5-10.1); Chloride 97 mmol/L (98-107); Cholesterol 163 mg/dL (200); Creatinine, Serum 0.86 mg/dL (0.70-1.30); EST Glomerular Filtration Rate 100 mL/min (>60); Est Glom Filt Rate - Afr Amer 121 mL/min (>60); Globulin 3.3 g/dL (2.2-4.2); Glucose 301 mg/dL (74-106); High Density Lipoprotein 43 mg/dL; Potassium 4.2 mmol/L (3.5-5.1); Protein, Total 6.9 g/dL (6.4-8.2); Sodium Level 135 mmol/L (136-145); Thyroid Stim Hormone (TSH) 1.51 uIU/mL (0.358-3.74); Triglycerides 165 mg/dL; Very Low Density Lipoprotein 33 mg/dL (5-40)
[2020-02-14 09:08] LABS: Microalbumin,Random Urine 15.7 mg/L (NO RANGE EST.); Microalbumin:Creatinine Ratio 27.7 mg/g CRE (<30 mg/g CRE)
== END ==
PROVIDERS: PCP Family Medicine; Referring Provider Family Medicine; Visit Provider Family Medicine
DX: Z00.00 Encounter for general adult medical examination without abnormal findings (principal); I10 Essential (primary) hypertension; E11.9 Type 2 diabetes mellitus without complications
CPT/HCPCS: 36415; 80053; 80061; 82043; 82570; 83036; 84443; 85025

== ENCOUNTER → 2020-08-08 11:57 | Outpatient (CLI) | payer BC, SELFPAY | PROVIDERS: Visit Provider Family Medicine | DX: Z11.59 Encounter for screening for other viral diseases (principal) | CPT/HCPCS: 87635; U0003 ==

== ENCOUNTER → 2020-08-22 10:42 | Outpatient (CLI) | payer BC, SELFPAY | PROVIDERS: Referring Provider Family Medicine; Visit Provider Family Medicine | DX: Z11.59 Encounter for screening for other viral diseases (principal) | CPT/HCPCS: 87635; U0003 ==

== ENCOUNTER → 2020-09-02 12:52 | Outpatient (CLI) | payer BC, SELFPAY | PROVIDERS: Visit Provider Family Medicine | DX: Z03.818 Encounter for observation for suspected exposure to other biological agents ruled out (principal) | CPT/HCPCS: 87635; U0003 ==

== ENCOUNTER → 2020-09-05 12:32 | Outpatient (CLI) | payer BC, SELFPAY | PROVIDERS: Referring Provider Family Medicine; Visit Provider Family Medicine | DX: Z03.818 Encounter for observation for suspected exposure to other biological agents ruled out (principal) | CPT/HCPCS: 87635; U0003 ==

== ENCOUNTER → 2020-09-19 10:40 | Outpatient (CLI) | payer BC, SELFPAY | PROVIDERS: Referring Provider Family Medicine; Visit Provider Family Medicine | DX: Z03.818 Encounter for observation for suspected exposure to other biological agents ruled out (principal) | CPT/HCPCS: 87635; U0003 ==

== ENCOUNTER → 2020-10-03 12:10 | Outpatient (CLI) | payer BC, SELFPAY | PROVIDERS: Referring Provider Family Medicine; Visit Provider Family Medicine | DX: Z03.818 Encounter for observation for suspected exposure to other biological agents ruled out (principal) | CPT/HCPCS: 87635; U0003 ==

== ENCOUNTER → 2021-02-24 13:50 | Outpatient (CLI) | payer BC, SELFPAY ==
[2021-02-24 15:05] LABS: Absolute Lymphocyte Count 1.82 X10^3/uL (0.83-4.51); Basophil# 0.02 X10^3/uL; Basophil% 0.4 % (0-1); Eosinophil# 0.09 X10^3/uL; Eosinophils% 1.7 % (0-5); Hematocrit 42.8 % (40-54); Hemoglobin 14.4 g/dL (13.0-16.5); Lymphocyte # 1.82 X10^3/ul (4.0); Lymphocyte % 33.6 % (19-41); Mean Corp Hgb Conc 33.6 g/dL (32-36); Mean Corpuscular Hgb 27.7 pg (27.0-32.0); Mean Corpuscular Volume 82.5 fL (80-94); Mean Platelet Vol. 10.6 fl (6.2-12.0); Monocyte# 0.47 X10^3/uL; Monocyte% 8.7 % (0-10); NRBC Flagged by Analyzer 0 % (0-5); Neutrophil # 3.01 X10^3/uL (2.7-7.7); Neutrophil % 55.6 % (47-70); Platelet Count 249 K/mm3 (150-450); RBC Distribution Width CV 12.9 % (11.6-14.6); RBC Distribution Width SD 38.3 fl (35.1-43.9); Red Blood Count 5.19 M/mm3 (4.6-6.2); White Blood Count 5.4 K/mm3 (4.4-11.0)
[2021-02-24 15:34] LABS: Hemoglobin A1c 12.3 % (3.8-5.6)
[2021-02-24 15:53] LABS: Microalbumin,Random Urine 17.9 mg/L (NO RANGE EST.); Microalbumin:Creatinine Ratio 9.8 mg/g CRE (<30 mg/g CRE)
[2021-02-24 18:06] LABS: ALB/GLOB Ratio 1.2 RATIO (0.9-2.4); AST(SGOT) 14 U/L (15-37); Alanine Aminotransfer ALT/SGPT 31 U/L (16-61); Albumin, Serum 3.8 g/dL (3.2-5.0); Alkaline Phosphatase 137 U/L (45-117); Anion Gap 4 (5-15); BUN 16 mg/dL (7-18); BUN/Creat Ratio 18.9 RATIO (10-20); Calcium,Total 8.8 mg/dL (8.5-10.1); Chloride 103 mmol/L (98-107); Cholesterol 148 mg/dL (200); Creatinine, Serum 0.85 mg/dL (0.70-1.30); EST Glomerular Filtration Rate 101 mL/min (>60); Est Glom Filt Rate - Afr Amer 122 mL/min (>60); Globulin 3.1 g/dL (2.2-4.2); Glucose 142 mg/dL (74-106); High Density Lipoprotein 44 mg/dL; Potassium 3.6 mmol/L (3.5-5.1); Protein, Total 6.9 g/dL (6.4-8.2); Sodium Level 135 mmol/L (136-145); Thyroid Stim Hormone (TSH) 1.65 uIU/mL (0.358-3.74); Triglycerides 156 mg/dL; Very Low Density Lipoprotein 31 mg/dL (5-40)
== END ==
PROVIDERS: PCP Family Medicine; Referring Provider Family Medicine; Visit Provider Family Medicine
DX: E11.3299 Type 2 diabetes mellitus with mild nonproliferative diabetic retinopathy without macular edema, unspecified eye (principal); I10 Essential (primary) hypertension; E78.5 Hyperlipidemia, unspecified; Z51.81 Encounter for therapeutic drug level monitoring
CPT/HCPCS: 36415; 80053; 80061; 82043; 82570; 83036; 84443; 85025

== ENCOUNTER 2021-10-17 03:32 | Emergency (ER) | payer BC, SELFPAY ==
[2021-10-17 03:32] VITALS: BP 150/82; PULSE 76; RESP 18; TEMP 36.4; O2SAT 100; BMI 42.7
[2021-10-17 03:36] VITALS: O2SAT 100
--- NOTE | 2021-10-17 03:55 | EDS_ITS ---
HPI History of Present Illness Chief Complaint: Shortness of Breath Informant: patient Onset/Context/Timing Onset: Days (4) Context: gradual Timing: Continuous Worsened by: - (Wearing masks) Relieved by: - (Removing mask) Associated Symptoms sweats; Negative for cough, rhinorrhea, ear pain, fever, sore throat, chills, clear sputum, white sputum, yellow sputum or green sputum Chest Pain: Positive for Tightness (Lower chest and upper abdomen) Narrative Narrative: Patient presents with shortness of breath that has been getting worse over the past 4 days. Patient states it is gradually getting worse. Patient states his breathing is worse whenever he wears a mask. Patient states it is better when he takes his mask off. Patient admits to some tightness around his lower chest and upper abdomen. Patient denies any cough. Patient denies any rhinorrhea, sore throat, or ear pain. Patient denies any fevers or chills. Patient admits to some increasing fatigue and weakness. Patient also admits to some sweats. PE Risk Factors: Negative for Cancer, OCP + Smoking + > 35, Prior DVT or PE, Recent immobilization, Recent surgery and Recent travel [facility] Medical History (Updated 10/17/21 @ 05:[address] Stephan Edwards, DO) Diabetes High cholesterol Hypertension Home Medications amlodipine 5 mg PO DAILY 05/26/18 [History Last Taken Unknown] glipizide 10 mg PO BIDAC 05/26/18 [History Last Taken Unknown] losartan 25 mg PO DAILY 05/26/18 [History Last Taken Unknown] metoprolol tartrate 25 mg PO BID 05/26/18 [History Last Taken Unknown] oxycodone 5 - 10 mg PO Q6H PRN PRN 4 Days #20 tab 05/26/18 [Rx Last Taken Unknown] pioglitazone 45 mg PO DAILY 05/26/18 [History Last Taken Unknown] oxycodone-acetaminophen 5 mg-325 mg tablet 1 tab PO Q6H PRN #30 tab 06/23/18 [Rx Last Taken Unknown] Keflex 500 mg PO 4X/DAY 10/07/18 [History Last Taken Unknown] Lasix 40 mg PO BID 10/07/18 [History Last Taken Unknown] Potassium Chloride 10 meq PO DAILY 10/07/18 [History Last Taken Unknown] Simvastatin 40 mg PO QHS 10/07/18 [History Last Taken Unknown] Allergy/AdvReac Type Severity Reaction Status Date / Time liraglutide [From Victoza] Allergy Rash Verified 10/17/21 03:36 metformin [From Glucophage] Allergy Rash Verified 10/17/21 03:36 Penicillins [PCN] Allergy Rash Verified 10/17/21 03:36 Sulfa (Sulfonamide Allergy Rash Verified 10/17/21 03:36 Antibiotics) Surgical History (Updated 10/17/21 @ 03:[address] Stephan Edwards DO) Hx of foot surgery Social History Smoking Status: Never smoker ROS ROS ED Constitutional Constitutional ED: Reports sweats; Denies chills or fever(s) Eyes Eyes: Denies blurry vision or change in vision ENT ENT ED: Denies rhinorrhea or sore throat Cardiovascular Cardiovascular: Denies chest pain or palpitations Respiratory/Chest Respiratory/Chest: Reports dyspnea; Denies cough Gastrointestinal Gastrointestinal: Reports abdominal pain; Denies nausea or vomiting Genitourinary Genitourinary ED: Denies dysuria or hematuria Musculoskeletal Musculoskeletal: Denies back pain or neck pain Integumentary Denies abscess or rash Neurologic Neurologic: Reports headache(s) and weakness Allergic/Immunologic Allergic/Immunologic ED: Denies mouth swelling or urticaria EXAM Physical Exam Const Vital Signs: 10/17/21 03:32 10/17/21 03:36 Temperature 97.6 F L Temperature Source Oral Pulse Rate 76 Respiratory Rate 18 Respiratory Effort Short of Breath Respiratory Pattern Normal Blood Pressure 150/82 H Blood Pressure Mean 104 Pulse Ox 100 Oxygen Delivery Method Room Air Room Air Positive well nourished, well developed and obese General Appearance ED: well developed Nutritional Appearance: obese HEENT Reports moist mucous membranes Neck supple and no JVD Resp normal respiratory effort and clear to auscultation bilaterally Cardio regular rate, regular rhythm and no murmurs GI normal to inspection, nondistended, normoactive bowel sounds and non-tender Palpation: soft Extremity normal to inspection General Extremety ED: Negative for edema or tenderness General Extremity: Negative for edema Neuro oriented x3, CN's II-XII intact bilaterally and no sensory deficits noted Sensorium / Orientation: alert Motor Exam: strength 5/5 throughout Psych mental status grossly normal Skin no rashes or lesions noted MDM MDM MDM Narrative Medical decision making narrative: Patient was given IV fluids. EKG was obtained. On my interpretation, it showed a normal sinus rhythm with a rate of 73. ME interval, QRS interval, and QTc intervals were all normal. [place] was normal. There are no acute ST or T wave changes. Portable 1 view chest x-ray was obtained. On my interpretation, lung langley are clear. There is normal cardiac silhouette. Bony thorax is normal. There is no acute process noted. Radiologist also interpreted the x-ray and agrees. CBC and comprehensive metabolic profile were obtained and were within normal limits. Patient was advised of his findings. Patient was advised that this is most likely viral upper respiratory infection. Patient was instructed to follow-up with his primary care physician in 3 to 5 days. Patient understood and was agreeable with the plan. All questions were answered. Lab Data Attestation: I reviewed the patient's lab results. Labs: Laboratory Results - last 24 hr 10/17/21 10/17/21 04:00 04:00 WBC 5.0 RBC 4.68 Hgb 13.0 Hct 38.3 L MCV 81.8 MCH 27.8 MCHC 33.9 RDW Std Deviation 40.0 RDW Coeff of Yadi 13.5 Plt Count 159 MPV 10.3 Immature Gran % (Auto) 0.200 Neut % (Auto) 65.4 Lymph % (Auto) 20.0 [place] % (Auto) 10.2 H Eos % (Auto) 3.8 Baso % (Auto) 0.4 Absolute Neuts (auto) 3.3 Absolute Lymphs (auto) 1.00 Nucleated RBC % 0 Sodium 139 Potassium 3.6 Chloride 105 Carbon Dioxide 25.0 Anion Gap 9 BUN 19 H Creatinine 0.79 Estim Creat Clear Calc 129.25 Est GFR (MDRD) Af Amer 132 Est GFR (MDRD) Non-Af 109 BUN/Creatinine Ratio 24.1 H Glucose 84 Calcium 7.8 L Total Bilirubin 0.90 AST 59 H ALT 50 Alkaline Phosphatase 138 H Total Protein 6.7 Albumin 3.0 L Globulin 3.7 Albumin/Globulin Ratio 0.8 L Radiography Chest X-Ray - ED: 1 View, Read by ED Physician, Read by Radiologist and Normal Diagnostic Testing: Clinical Impression(s) from Imaging Studies Chest X-Ray 10/17/21 04:10 IMPRESSION: Degenerative changes, as described above. No demonstrated acute cardiopulmonary process. Electronically Signed: Nicole Burgos MD at 5:03 EST Tel , Service support , EKG Initial EKG: Attestation: I personally reviewed and interpreted this EKG as follows: Interpretation: Sinus Rhythm (73) and No Acute Injury Pattern Prior EKG tracings: available for review Prior: Unchanged (01/28/2011) Discharge Plan Triage Chief Complaint: Shortness of Breath ED Provider: Stephan Edwards Dx/Rx/DC Orders Clinical Impression: Viral upper respiratory infection Instructions: ED URI, Viral, No Abx (Adult) Prescriptions: No Action amlodipine 5 MG tablet 5 mg PO DAILY RF: 0 losartan 25 MG tablet 25 mg PO DAILY RF: 0 pioglitazone 30 MG tablet 45 mg PO DAILY RF: 0 glipizide 5 MG tablet 10 mg PO BIDAC RF: 0 metoprolol tartrate 25 MG tablet 25 mg PO BID RF: 0 oxycodone 5 MG tablet 5 - 10 mg PO Q6H PRN PRN (Reason: Pain) 4 Days Qty: 20 RF: 0 Keflex tablet 500 mg PO 4X/DAY RF: 0 Lasix 40 mg PO BID RF: 0 Potassium Chloride 10 meq PO DAILY RF: 0 Simvastatin 40 mg PO QHS RF: 0 oxycodone-acetaminophen 5-325 mg tablet 1 tab PO Q6H PRN (Reason: pain) Qty: 30 RF: 0 Primary Care Provider: Stef Pandya Referrals: Stef Pandya DO [Primary Care Provider] - 3-5 Days Disposition Disposition: Home, Self Care
--- NOTE | 2021-10-17 03:56 | EKG12_ITS ---
Test Reason : DYSRHYTHMIA Blood Pressure : / mmHG Vent. Rate : 073 BPM Atrial Rate : 073 BPM P-R Int : 158 ms QRS Dur : 114 ms QT Int : 422 ms P-R-T Axes : 007 -27 -08 degrees QTc Int : 464 ms Normal sinus rhythm Normal ECG Confirmed by MIRI BOSTON, EMMANUEL ([id number]), general expeditor CANDACE MEHTA ([id number]) on 10/17/2021 11:49:11 AM Referred By: MAYUR Confirmed By:EMMANUEL CHERY MD
[2021-10-17] MEDS: 0.9% Normal Saline 1,000 ML 1000 ML IV (04:04)
[2021-10-17 04:05] LABS: Absolute Neutrophil Count 3.3 X10^3/uL (2.0-7.7); Basophil# 0.02 X10^3/uL; Basophil% 0.4 % (0-1); Eosinophil# 0.19 X10^3/uL; Eosinophils% 3.8 % (0-5); Hematocrit 38.3 % (40-54); Mean Corp Hgb Conc 33.9 g/dL (32-36); Mean Corpuscular Hgb 27.8 pg (27.0-32.0); Mean Corpuscular Volume 81.8 fL (80-94); Mean Platelet Vol. 10.3 fl (6.2-12.0); Monocyte# 0.51 X10^3/uL; Monocyte% 10.2 % (0-10); NRBC Flagged by Analyzer 0 % (0-5); Neutrophil # 3.27 X10^3/uL (2.7-7.7); Neutrophil % 65.4 % (47-70); Platelet Count 159 K/mm3 (150-450); RBC Distribution Width CV 13.5 % (11.6-14.6); Red Blood Count 4.68 M/mm3 (4.6-6.2)
--- NOTE | 2021-10-17 04:10 | RAD_ITS ---
STUDY: X-RAY CHEST REASON FOR EXAM: Male, 51 years old. Cough TECHNIQUE: Single AP portable view of the chest. COMPARISON: None. FINDINGS: The lungs are underexpanded. There is no demonstrated pleural abnormality. Normal size heart. Normal mediastinum and natividad. Normal visualized pulmonary arteries. Normal visualized aortic arch and descending thoracic aorta. Normal visualized thoracic spine. There is degenerative osteoarthritis of the bilateral shoulders. There is no demonstrated abnormality of the visualized soft tissue structures of the upper abdomen. RAD/Chest 1 View (Portable) IMPRESSION: Degenerative changes, as described above. No demonstrated acute cardiopulmonary process. Electronically Signed: Nicole Burgos MD at 5:03 EST Tel , Service support ,
[2021-10-17 04:27] LABS: ALB/GLOB Ratio 0.8 RATIO (0.9-2.4); AST(SGOT) 59 U/L (15-37); Alanine Aminotransfer ALT/SGPT 50 U/L (16-61); Alkaline Phosphatase 138 U/L (45-117); Anion Gap 9 (5-15); BUN 19 mg/dL (7-18); BUN/Creat Ratio 24.1 RATIO (10-20); Calcium,Total 7.8 mg/dL (8.5-10.1); Chloride 105 mmol/L (98-107); Creatinine, Serum 0.79 mg/dL (0.70-1.30); EST Glomerular Filtration Rate 109 mL/min (>60); Est Glom Filt Rate - Afr Amer 132 mL/min (>60); Estimated Creatinine Clearance 129.25 ml/min; Globulin 3.7 g/dL (2.2-4.2); Glucose 84 mg/dL (74-106); Potassium 3.6 mmol/L (3.5-5.1); Protein, Total 6.7 g/dL (6.4-8.2); Sodium Level 139 mmol/L (136-145)
[2021-10-17 05:25] VITALS: BP 143/87; PULSE 77; RESP 18; O2SAT 98
== END 2021-10-17 05:26 | disposition home or self-care (01) ==
PROVIDERS: Emergency Provider Emergency Medicine; PCP Family Medicine
DX: J06.9 Acute upper respiratory infection, unspecified (principal); I10 Essential (primary) hypertension; E11.9 Type 2 diabetes mellitus without complications; E78.00 Pure hypercholesterolemia, unspecified; E66.9 Obesity, unspecified; Z68.41 Body mass index [BMI] 40.0-44.9, adult; Z79.84 Long term (current) use of oral hypoglycemic drugs; Z79.899 Other long term (current) drug therapy
CPT/HCPCS: 71045; 80053; 85025; 93005; 99283; J7030; A4216

== ENCOUNTER → 2022-06-08 | Outpatient (CLI) | payer OTHER, SELFPAY ==
[2022-06-08 16:20] LABS: Microalbumin,Random Urine 44.9 mg/L (NO RANGE EST.); Microalbumin:Creatinine Ratio 18.9 mg/g CRE (<30 mg/g CRE)
[2022-06-08 16:25] LABS: Hemoglobin A1c 11.6 % (3.8-5.6)
[2022-06-08 16:35] LABS: ALB/GLOB Ratio 1.3 RATIO (0.9-2.4); AST(SGOT) 33 U/L (15-37); Alanine Aminotransfer ALT/SGPT 37 U/L (16-61); Albumin, Serum 3.9 g/dL (3.2-5.0); Alkaline Phosphatase 130 U/L (45-117); Anion Gap 11 (5-15); BUN 15 mg/dL (7-18); BUN/Creat Ratio 19.2 RATIO (10-20); Calcium,Total 8.8 mg/dL (8.5-10.1); Chloride 104 mmol/L (98-107); Cholesterol 141 mg/dL (200); Creatinine, Serum 0.78 mg/dL (0.70-1.30); EST Glomerular Filtration Rate 110 mL/min (>60); Est Glom Filt Rate - Afr Amer 133 mL/min (>60); Glucose 75 mg/dL (74-106); High Density Lipoprotein 55 mg/dL; Potassium 3.2 mmol/L (3.5-5.1); Protein, Total 6.9 g/dL (6.4-8.2); Sodium Level 142 mmol/L (136-145); Thyroid Stim Hormone (TSH) 1.32 uIU/mL (0.358-3.74); Triglycerides 105 mg/dL; Very Low Density Lipoprotein 21 mg/dL (5-40)
== END | disposition home or self-care (01) ==
LOC: MTLAB 13:41
PROVIDERS: PCP Family Medicine; Referring Provider Family Medicine; Visit Provider Family Medicine
DX: E11.3299 Type 2 diabetes mellitus with mild nonproliferative diabetic retinopathy without macular edema, unspecified eye (principal)
CPT/HCPCS: 36415; 80053; 80061; 82043; 82570; 83036; 84443

== ENCOUNTER 2023-04-14 14:30 | Outpatient (RCR) | payer OTHER, SELFPAY ==
[2023-04-02 10:18] VITALS: BP 142/76; PULSE 89; RESP 18; TEMP 36.5; BMI 39.9
--- NOTE | 2023-04-02 14:07 | PCM.WC.HP ---
History of Present Illness Date of Service: 04/02/23 Chief Complaint: venous stasis ulcer right LE History of Wound: David is a 52 year old male that presents to the wound center for evaluation and treatment of venous ulcer of right lower leg. He noticed this approximately 1 month ago. he has not been applying any treatments to his ulcer. 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 His last A1C was 03/14/23 and was 11.0 %. 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 He saw Dr. Steinberg for evaluation for possible venous ablation but he did not recommend any surgical treatment. He has not been able to place compression because he is unable to bend to pull on compression stockings due to arthritis in his back. He is not able to wrap with RADHA bandages either. Circaids were tried previously but he was unable to do this as well. [facility] Medical History Diabetes High cholesterol Hypertension Home Medications amlodipine 5 mg tablet 5 mg PO DAILY 05/26/18 [History Last Taken Unknown] glipizide 5 mg tablet 10 mg PO BIDAC 05/26/18 [History Last Taken Unknown] losartan 25 mg tablet 25 mg PO DAILY 05/26/18 [History Last Taken Unknown] metoprolol tartrate 25 mg tablet 25 mg PO BID 05/26/18 [History Last Taken Unknown] pioglitazone 30 mg tablet 45 mg PO DAILY 05/26/18 [History Last Taken Unknown] Lasix 40 mg PO BID 10/07/18 [History Last Taken Unknown] Potassium Chloride 10 meq PO DAILY 10/07/18 [History Last Taken Unknown] Simvastatin 40 mg PO QHS 10/07/18 [History Last Taken Unknown] Allergy/AdvReac Type Severity Reaction Status Date / Time liraglutide [From Victoza] Allergy Rash Verified 10/17/21 03:36 metformin [From Glucophage] Allergy Rash Verified 10/17/21 03:36 Penicillins [PCN] Allergy Rash Verified 10/17/21 03:36 Sulfa (Sulfonamide Allergy Rash Verified 10/17/21 03:36 Antibiotics) Surgical History Hx of foot surgery Social History Smoking Status: Never smoker ROS Constitutional Constitutional: Denies chills, fatigue or fever(s) Eyes Eyes: Denies blurry vision, change in vision or loss of vision ENT HEENT: Denies dysphagia, hearing loss or sore throat Cardiovascular Cardiovascular: Denies chest pain, edema or palpitations Respiratory/Chest Respiratory/Chest: Denies dry cough, dyspnea, dyspnea on exertion, productive cough or wheezing Gastrointestinal Gastrointestinal: Denies diarrhea, nausea or vomiting Genitourinary Genitourinary: Denies dysuria or polyuria Musculoskeletal Musculoskeletal: Denies arthralgias, joint stiffness or muscle weakness Integumentary Integumentary: Reports erythema and wounds Neurologic Neurologic: Denies dizziness, memory loss or weakness Psychiatric Psychiatric: Denies homicidal ideation or suicidal ideation Endocrine Endocrinology: Denies polydipsia, polyphagia or polyuria Hematologic/Lymphatic Hematologic/Lymphatic: Denies easy bleeding or easy bruising Allergic/Immunologic Allergic/Immunologic: Denies throat swelling, tongue swelling or urticaria Vital Signs Vital Signs Vital Signs: 04/02/23 10:18 Temperature 97.7 F L Temperature Source Temporal Pulse Rate 89 Respiratory Rate 18 Blood Pressure 142/76 H Blood Pressure Mean 98 Blood Pressure Source Monitor Blood Pressure Position Semi-Fowlers Blood Pressure Location Left Arm Weight Weight: 144.696 kg Body Mass Index (BMI) 39.9 Physical Exam Const alert, oriented x3 and no apparent distress General Appearance: cooperative and comfortable HEENT normocephalic and head/scalp atraumatic Resp normal respiratory effort Effort and Inspection: able to speak in complete sentences Cardio regular rate and regular rhythm Skin Wounds: wounds noted Wound Narrative: as in clinical panel Psych mental status grossly normal, thought process normal, cooperative and affect normal Debridement Note Debridement Note Wound debrided: right deluna ulcer Laterality: Right Type of Debridement: Excisional debridement Anesthesia Used: 4% Lidocaine Solution and 5% Lidocaine Gel Depth: Down to and including healthy tissue and in the subcutaneous layer Percentage of wound debrided: 100 Instrument Used: 5mm curette Tissue Removed: Yellow slough, devitalized tissue Severity: Fat Layer Exposed Amount of bleeding with debridement: Mild Bleeding Controlled with: Compression and gauze Patient tolerated procedure: Patient tolerated procedure well Post-Debridement Measurements and Additional Note: Post-Debridement Measurements/Treatment DESMOND - Nurse 1 - General Ulcer Assessment Start: 04/02/23 10:09 Freq: Status: Active Protocol: MART Activity Type Activity Date Activity User E-sign Co-sign Detail Recorded Client Recorded Date Recorded By Document 04/02/23 10:18 JOSE ALFREDO [id number] 04/02/23 10:21 RB 04/02/23 10:18 WC - Today's Visit Information Type of service Initial Visit Arrival Mode Ambulatory Transfer Assistance None Patient Identification Verified (Name & Yes ) Patient Requires Transmission-Based No Precautions Finger Stick Blood Sugar(mg/dl) (if 100 indicated): Blood Sugar Stated by Patient Height and Weight Height 6 ft 3 in Weight 144.696 kg Weight in Pounds 319.0 lbs Body Mass Index (BMI) 39.9 BMI Classification Obese BSA - Caden 2.68 Vital Signs Temperature (97.8 F-99.1 F) 97.7 F L Temperature Source Temporal Pulse Rate (60-100) 89 Pulse Location Monitor Respiratory Rate (12-18) 18 Respiratory rate source Observation Blood Pressure (90/60-120/80) 142/76 H Blood Pressure Mean 98 Source Monitor Position Semi-Fowlers Blood Pressure Location Left Arm Pain Scale: 0-10 Numeric Is Patient Pain Free? Yes Culture/Samaritan/Rare/Endangered Species Specialist Cultural/Samaritan Needs that may affect No Treatment Plan Would you allow our hospital glassware verifier to No meet you for the purpose of spiritual/ emotional support? Rare/Endangered Species Specialist to contact place of restorationism No Teaching: Wound Center *Welcome to the Wound Center -Person Taught Patient -Teaching Method Discussion -Response to teaching Verbalize understanding DESMOND - Nurse 1 - General Ulcer Measurement Start: 04/02/23 10:09 Freq: Status: Active Protocol: Activity Type Activity Date Activity User E-sign Co-sign Detail Recorded Client Recorded Date Recorded By Document 04/02/23 10:16 JOSE ALFREDO [id number] 04/02/23 10:18 RB 04/02/23 10:16 Wound Center Nurse 1 11. RLE cluster -Combined with other wound No -Current Size (cm) - Length 0.1 -Current Size (cm) - Width 0.1 -Current Size (cm) - Depth 0.1 -Total Square Cm 0.01 -Photo Taken Yes -Tunneling No -Undermining/Tunneling No -Circular Undermining No -Exudate Amt Small -Exudate Type Serosanguineous -Wound Margin Distinct, Outline Attached -Granulation Amt Medium (34-66%) -Granulation Quality [place] -Slough/Fibrin Yes -Necrosis Amt Large (67-100%) -Necrotic Tissue Type Adherent Slough -Structure Exposed N/A -Texture (Milly-wound Skin Appearance) Assessed, Localized Edema -Moisture (Milly-wound Skin Appearance) Assessed -Color (Milly-wound Skin Appearance) Assessed, Hemosiderin Staining -Temperature (Milly-wound Skin No Abnormality Appearance) (Pt Warm) -Tenderness on Palpation (Milly-wound No Skin Appearance) -Ulcer Cleansing Wound Cleanser -Foul Odor after Cleansing No -Anesthetic Used 5% Lidocaine Gel Lower Limb Edema Present Yes Right Calf (cm) 43.5 Right Ankle (cm) 23 Left Calf (cm) 42.5 Left Ankle (cm) 23 WC - Nurse 2 - General Ulcer CM Notes Start: 04/02/23 10:09 Freq: Status: Active Protocol: Activity Type Activity Date Activity User E-sign Co-sign Detail Recorded Client Recorded Date Recorded By Document 04/02/23 10:40 MW [id number] 04/02/23 10:56 MW 04/02/23 10:40 Wound Center Nurse 2 11. RLE cluster -Time 10:40 -Correct Patient Yes -Correct Side, Site, Position Yes -Correct Procedure Yes -Procedure Performed Yes -Type of Procedure Debridement -Clinical Debridement Subcutaneous -Tissue Removed Subcutaneous -Post Debridement (cm) - Length 0.5 -Post Debridement (cm) - Width 0.5 -Post Debridement (cm) - Depth 0.1 -Total Square (Post) (cm) 0.25 -Area of Debridement (cm) - Length 0.5 -Area of Debridement (cm) - Width 0.5 -Total Square (Area) (cm) 0.25 -Tunneling No -Undermining/Tunneling No -Circular Undermining No -Wound/Ulcer Outcome Not Healed -Ulcer Cleansing Rinsed/ Irrigated with Saline -Foul Odor after Cleansing No -Bioengineered Tissue No -Bleeding Controlled with Pressure -Treatment Response Procedure Tolerated Well -Offloading No -Debridement - Subq, 1st 20sq cm Yes Pain Scale: 0-10 Numeric Is Patient Pain Free? Yes WC - Nurse 3 - General Ulcer D/C NN Start: 04/02/23 10:09 Freq: Status: Active Protocol: Activity Type Activity Date Activity User E-sign Co-sign Detail Recorded Client Recorded Date Recorded By Document 04/02/23 11:08 DL [id number] 04/02/23 11:09 DL 04/02/23 11:08 Wound Care Center Nurse 3 Right -Multi-Layered Wrap Application Unna Boot - Right ($) Treatment Response Procedure Tolerated Well Pain Scale: 0-10 Numeric Is Patient Pain Free? Yes WC - Visit Discharge Discharge Condition Stable Ambulatory Status Ambulatory Transportation Private Auto Assessment/Plan Assessment/Plan (1) Diabetes mellitus, insulin dependent (IDDM), uncontrolled: CODE(S): E10.65 - Type 1 diabetes mellitus with hyperglycemia QUALIFIERS: Glycemic state: with hyperglycemia (2) HTN (hypertension): CODE(S): I10 - Essential (primary) hypertension QUALIFIERS: Hypertension type: essential hypertension (3) Hyperlipidemia: CODE(S): E78.5 - Hyperlipidemia, unspecified QUALIFIERS: Hyperlipidemia type: unspecified Qualified Code(s): E78.5 - Hyperlipidemia, unspecified (4) Venous insufficiency of both lower extremities: CODE(S): I87.2 - Venous insufficiency (chronic) (peripheral) (5) Edema of both legs: CODE(S): R60.0 - Localized edema (6) Venous ulcer of right lower extremity with varicose veins: CODE(S): I83.019 - Varicose veins of right lower extremity with ulcer of unspecified site; L97.919 - Non-pressure chronic ulcer of unspecified part of right lower leg with unspecified severity (7) Lymphedema of both lower extremities: CODE(S): I89.0 - Lymphedema, not elsewhere classified PLAN: Plan Debridement performed today in clinic as annotated above. At home wound-care instructions: Will apply Unna boot to his right lower leg and change on Wednesday or Wednesday and have him return in 1 week. Keep dressing clean and dry. Off-loading: The patient was instructed to avoid pressure and friction on the affected areas. Reposition every 2 hours at minimum. Avoid prolonged standing and/or dangling of legs. When seated, feet should be elevated at chest level. Frequent ambulation is encouraged. Diet: Patient encouraged to increase protein intake while taking caution to avoid high carbohydrate and/or sugar intake. Labs/cultures/imaging: Venous testing ordered and possible referral to Dr. Orosco for vascular intervention if needed. Follow-up: Return in 1 week for wound care follow up with Jojo due to his schedule. Return sooner or report to the emergency room should symptoms worsen, or new symptoms arise. Note: [employer] speech recognition coal grader software was used to create portions of this document. Sound-alike and misspelled words, as well as other coal grader errors may be contained in the documentation.
[2023-04-05 14:58] VITALS: BP 132/81; PULSE 90; RESP 20; TEMP 36.6; BMI 39.9
--- NOTE | 2023-04-07 14:48 | VDLE_ITS ---
Reason For Study: Bilateral lower extremity edema RIGHT LEFT CFV is compressible, spontaneous, phasic, CFV is compressible, spontaneous, phasic, competent and demonstrates normal competent, and demonstrates normal augmentation. augmentation. FV is compressible, spontaneous, phasic, FV is compressible, spontaneous, phasic, competent and demonstrates normal competent and demonstrates normal augmentation. augmentation. POP V is compressible, spontaneous, phasic, POP V is compressible, spontaneous, phasic, competent and demonstrates normal competent and demonstrates normal augmentation. augmentation. T/P Trunk is compressible. T/P Trunk is compressible. PTV is compressible. PTV is compressible. RT PerV is compressible. LT PerV is compressible. SFJ is competent and measures 0.72 x 0.72 cm. SFJ is competent and measures 0.65 x 0.58 cm. GSV proximal thigh measures 0.37 x 0.35 cm. GSV proximal thigh measures 0.60 x 0.60 cm. GSV above knee is competent. GSV at knee measures 0.37 x 0.37 cm. GSV at knee measures 0.34 x 0.35 cm. GSV INCOMPETENT throughout for greater than GSV below knee is INCOMPETENT for greater 0.5 seconds. than 0.5 seconds. ASV distal thigh is INCOMPETENT for greater ASV at knee is INCOMPETENT for greater than than 0.5 seconds and measures 0.46 x 0.43 cm. 0.5 seconds and measures 0.33 x 0.36 cm. SSV proximal calf is competent and measures ASV proximal calf is INCOMPETENT for greater 0.24 x 0.25 cm. than 0.5 seconds and measures 0.29 x 0.29 cm. SSV proximal calf is competent and measures 0.09 x 0.10 cm. Procedure This is a venous duplex using B-mode, color flow and spectral Doppler. Exam performed in department. A preliminary report was called and/or faxed to . VL/Venous Duplex US - Edwin Extrem Interpretation Summary Deep veins of the bilateral lower extremities are patent and compressible segme ntally. There is no evidence of bilateral lower extremity deep vein thrombosis. The bilateral great saphenous veins appear patent and compressible segmentally Positive for reflux in the right great saphenous vein, accessory saphenous vein . Positive for reflux in the left great saphenous vein, accessory saphenous vein. Ordering Physician: Claudia Mckeon Referring Physician: Stef Pandya Performed By: Kelli Acosta RVT
[2023-04-09 11:56] VITALS: BP 141/83; PULSE 104; RESP 16; BMI 39.9
[2023-04-14 14:40] VITALS: BP 108/79; PULSE 79; TEMP 36.2; BMI 39.9
--- NOTE | 2023-04-14 22:28 | PN.PCM_ITS ---
History of Present Illness Date of Service: 04/14/23 Chief Complaint: venous stasis ulcer right LE History of Wound: David is a 52 year old male that presents to the wound center for evaluation and treatment of venous ulcer of right lower leg. He noticed this approximately 1 month ago. he has not been applying any treatments to his ulcer. 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 His last A1C was 03/14/23 and was 11.0 %. 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 He saw Dr. Steinberg for evaluation for possible venous ablation but he did not recommend any surgical treatment. He has not been able to place compression because he is unable to bend to pull on compression stockings due to arthritis in his back. He is not able to wrap with RADHA bandages either. Circaids were tried previously but he was unable to do this as well. Subjective Subjective Patient initially seen by Dr. Mckeon. I am seeing him today as it better aligns with his schedule. His wounds are all healed today. Objective Data Objective Data Vital Signs: Vital Signs Temp Pulse Resp BP O2 Del Method 97.1 F L 79 16 108/79 Room Air 04/14/23 14:40 04/14/23 14:40 04/09/23 11:56 04/14/23 14:40 04/09/23 11:56 Oxygen Delivery Method Room Air Weight: 319 lb Body Mass Index (BMI) 39.9 Charges/Coding Visit Charges Office Visits / Consults: 98279 OV L3 Est Physical Exam Const alert, oriented x3 and no apparent distress General Appearance: cooperative and comfortable HEENT normocephalic Resp normal respiratory effort Effort and Inspection: able to speak in complete sentences Cardio regular rate and regular rhythm Extremity Extremity Narrative: Varicose and reticular veins and edema of bilateral lower extremities. Skin Wounds: wounds noted Wound Narrative: All wounds are healed today. There is hemosiderin staining and discoloration from prior wound scarring bilaterally. Skin integrity is intact, no dy skin noted. Psych mental status grossly normal, thought process normal, cooperative and affect normal Debridement Note Debridement Note No debridement was completed: No debridement was completed today Assessment/Plan Assessment/Plan (1) Diabetes mellitus, insulin dependent (IDDM), uncontrolled: CODE(S): E10.65 - Type 1 diabetes mellitus with hyperglycemia QUALIFIERS: Glycemic state: with hyperglycemia (2) HTN (hypertension): CODE(S): I10 - Essential (primary) hypertension QUALIFIERS: Hypertension type: essential hypertension (3) Hyperlipidemia: CODE(S): E78.5 - Hyperlipidemia, unspecified QUALIFIERS: Hyperlipidemia type: unspecified Qualified Code(s): E78.5 - Hyperlipidemia, unspecified (4) Venous insufficiency of both lower extremities: CODE(S): I87.2 - Venous insufficiency (chronic) (peripheral) (5) Edema of both legs: CODE(S): R60.0 - Localized edema (6) Venous ulcer of right lower extremity with varicose veins: CODE(S): I83.019 - Varicose veins of right lower extremity with ulcer of unspecified site; L97.919 - Non-pressure chronic ulcer of unspecified part of right lower leg with unspecified severity (7) Lymphedema of both lower extremities: CODE(S): I89.0 - Lymphedema, not elsewhere classified PLAN: Plan Patient's wounds are healed today. We discussed the results of his venous duplex. He has reflux of the bilateral GSV and ASV veins. We discussed that the foundation of treatment for venous insufficiency in compression, but in patients with recurrent wounds venous ablations may be recommended. He shared that his last nonhealing venous ulcer was about 5 years prior to this one. Prior to these wounds developing, he had not been wearing compression. Unfortunately, he has chronic back issues which make it very challenging to apply compression stockings. However, he is not eager to pursue venous ablation at this point. I recommend 18-25mmHg knee-high measured compression stockings worn daily to minimize risk of wound recurrence, worsening of chronic skin changes, and to manage swelling. I discussed with patient the availability of donning accessories which he will look into obtaining. He will try to apply and wear compression stockings consistently. Should his wounds recur, I advise he follow- up with us in the vascular surgery clinic for consideration of venous ablation. He is discharged from the wound care center today. Return as needed.
== END 2023-04-14 15:23 | disposition home or self-care (01) ==
LOC: WC 14:30
PROVIDERS: PCP Family Medicine; Referring Provider Family Medicine; Visit Provider Family Medicine
DX: I83.018 Varicose veins of right lower extremity with ulcer other part of lower leg (principal); L97.812 Non-pressure chronic ulcer of other part of right lower leg with fat layer exposed; E10.65 Type 1 diabetes mellitus with hyperglycemia; E10.59 Type 1 diabetes mellitus with other circulatory complications; Z79.4 Long term (current) use of insulin; I10 Essential (primary) hypertension; R60.0 Localized edema; E78.5 Hyperlipidemia, unspecified; I87.2 Venous insufficiency (chronic) (peripheral); I89.0 Lymphedema, not elsewhere classified
CPT/HCPCS: 11042; 29580; 93970; 99213; G0463

== ENCOUNTER → 2023-06-14 | Outpatient (CLI) | payer OTHER, SELFPAY ==
[2023-06-14 17:45] LABS: Absolute Lymphocyte Count 2.05 X10^3/uL (0.83-4.51); Absolute Neutrophil Count 3.9 X10^3/uL (2.0-7.7); Basophil# 0.03 X10^3/uL; Basophil% 0.5 % (0-1); Eosinophil# 0.13 X10^3/uL; Hematocrit 43.3 % (40-54); Lymphocyte # 2.05 X10^3/ul (0.83-4.51); Lymphocyte % 31.2 % (19-41); Mean Corp Hgb Conc 32.3 g/dL (32-36); Mean Corpuscular Volume 86.6 fL (80-94); Mean Platelet Vol. 10.6 fl (6.2-12.0); Monocyte# 0.51 X10^3/uL; Monocyte% 7.8 % (0-10); NRBC Flagged by Analyzer 0 % (0-5); Neutrophil # 3.85 X10^3/uL (2.7-7.7); Neutrophil % 58.3 % (47-70); Platelet Count 283 K/mm3 (150-450); RBC Distribution Width CV 13.4 % (11.6-14.6); RBC Distribution Width SD 41.1 fl (35.1-43.9); White Blood Count 6.6 K/mm3 (4.4-11.0)
[2023-06-14 18:06] LABS: Hemoglobin A1c 11.6 % (3.8-5.6)
[2023-06-14 18:14] LABS: AST(SGOT) 27 U/L (15-37); Alanine Aminotransfer ALT/SGPT 37 U/L (16-61); Albumin, Serum 3.7 g/dL (3.2-5.0); Alkaline Phosphatase 126 U/L (45-117); Anion Gap 5 (5-15); BUN 20 mg/dL (7-18); BUN/Creat Ratio 19.8 RATIO (10-20); Chloride 105 mmol/L (98-107); Cholesterol 167 mg/dL (200); Creatinine, Serum 1.01 mg/dL (0.70-1.30); EST Glomerular Filtration Rate 82 mL/min (>60); Est Glom Filt Rate - Afr Amer 99 mL/min (>60); Globulin 3.8 g/dL (2.2-4.2); Glucose 81 mg/dL (74-106); High Density Lipoprotein 54 mg/dL; PSA,Total - Annual Screen 0.02 ng/mL (0.00-4.00); Potassium 3.6 mmol/L (3.5-5.1); Protein, Total 7.5 g/dL (6.4-8.2); Sodium Level 139 mmol/L (136-145); Triglycerides 172 mg/dL; Very Low Density Lipoprotein 34 mg/dL (5-40)
[2023-06-14 18:55] LABS: Microalbumin:Creatinine Ratio 16.4 mg/g CRE (<30 mg/g CRE)
== END | disposition home or self-care (01) ==
LOC: BFHLAB 15:59
PROVIDERS: PCP Family Medicine; Referring Provider Family Medicine; Visit Provider Family Medicine
DX: Z00.00 Encounter for general adult medical examination without abnormal findings (principal); E11.3299 Type 2 diabetes mellitus with mild nonproliferative diabetic retinopathy without macular edema, unspecified eye
CPT/HCPCS: 36415; 80053; 80061; 82043; 82570; 83036; 84153; 84443; 85025; G0103

== ENCOUNTER 2023-10-06 08:31 | Emergency (ER) | payer OTHER, SELFPAY ==
[2023-10-06 08:31] VITALS: BP 143/95; PULSE 100; RESP 20; TEMP 35.7; O2SAT 100; BMI 40.5
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
== END 2023-10-06 09:39 | disposition home or self-care (01) ==
LOC: ED 09:30
PROVIDERS: Emergency Provider Emergency Medicine; PCP Family Medicine; Visit Provider Emergency Medicine
DX: M54.6 Pain in thoracic spine (principal); E11.9 Type 2 diabetes mellitus without complications; V89.2XXA Person injured in unspecified motor-vehicle accident, traffic, initial encounter
CPT/HCPCS: 72072; 99282

== ENCOUNTER 2023-10-13 15:43 | Emergency (ER) | payer OTHER, SELFPAY ==
[2023-10-13 15:44] VITALS: BP 176/100; PULSE 130; RESP 15; TEMP 36.2; O2SAT 100; BMI 37.3
--- NOTE | 2023-10-13 16:15 | CT_ITS ---
STUDY: CT ABDOMEN AND PELVIS WITH CONTRAST REASON FOR EXAM: Male, 53 years old. upper abdomen pain RADIATION DOSAGE (If Supplied By Facility): CTDIvol = ( 37.34 ) mGy, DLP = ( 2913.08 ) mGycm TECHNIQUE: Transaxial images were obtained from the dome of the diaphragm to the symphysis pubis without oral contrast. IV 100mL Isovue-370 was administered. Sagittal and coronal images were reconstructed. Individualized dose optimization techniques were used for this CT. COMPARISON: None. FINDINGS: The visualized lung bases are unremarkable. Coronary artery atherosclerosis. Normal liver. There are multiple gallstones. Normal spleen. Normal pancreas. Normal bilateral adrenal glands. Normal right kidney. Normal left kidney. Normal visualized stomach. Normal small intestine. There are multiple colonic diverticula consistent with diverticulosis. There is non-visualization of the appendix. There is diffuse atherosclerotic calcification of the abdominal aorta, without a demonstrated aneurysm. Normal inferior vena cava. Normal retroperitoneum. Normal urinary bladder. Bilateral fat-containing inguinal hernias. There are diffuse degenerative changes of the visualized lumbar spine. CT/Abdomen/Pelvis W IV Cont ONLY IMPRESSION: 1. No acute inflammatory process or bowel obstruction. 2. Cholelithiasis. 3. Bilateral fat-containing inguinal hernias. Electronically Signed: Jason Blas MD ([place]) at 17:47 EST ,
--- NOTE | 2023-10-13 16:15 | CT_ITS ---
EXAM: CT ANGIOGRAPHY CHEST WITHOUT AND WITH INTRAVENOUS CONTRAST CLINICAL INDICATION: back pain, tachycardia, dyspnea TECHNIQUE: Helically acquired angiography images were obtained of the chest without and with intravenous contrast. This CT exam was performed using one or more of the following dose reduction techniques: automated exposure control, adjustment of the mA and/or kV according to patient size, and/or use of iterative reconstruction technique. MIP reconstructed images were created and reviewed. CONTRAST: IV 100mL Isovue-370 RADIATION DOSE: CTDIvol = 37.34 mGy, DLP = 2913.08 mGy-cm COMPARISON: No relevant prior studies available. FINDINGS: PULMONARY ARTERIES: Unremarkable. Normal in caliber. No evidence of pulmonary embolism. AORTA: Unremarkable. Normal in caliber. No evidence of dissection. GREAT VESSELS OF AORTIC ARCH: Unremarkable. Normal in caliber. No evidence of dissection. LUNGS AND PLEURAL SPACES: Unremarkable. No mass. No consolidation or edema. No pleural effusion or thickening. No pneumothorax. HEART: Atherosclerosis of the coronary arteries. Heart size is normal. No pericardial effusion. MEDIASTINUM: Unremarkable. No mediastinal or hilar adenopathy. Esophagus is unremarkable. No hiatal hernia. THYROID: Unremarkable. No thyroid lesions. BONES/JOINTS: Degenerative changes throughout the thoracic spine. No suspicious lytic or blastic abnormality. OTHER FINDINGS: Upper abdomen described on abdomen/pelvis CT report. CT/CTA Chest W/WO Contrast IMPRESSION: No central or segmental pulmonary embolism. Electronically Signed: Jason Blas MD ([place]) at 17:49 EST Reading Location ID and State: [facility] / [place] , Service support ,
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
[2023-10-13] MEDS: 0.9% Normal Saline (1000mL) 1,000 ML 150 ML IV (17:02)
[2023-10-13 17:04] LABS: Absolute Lymphocyte Count 1.48 X10^3/uL (0.83-4.51); Absolute Neutrophil Count 4.8 X10^3/uL (2.0-7.7); Basophil# 0.02 X10^3/uL; Basophil% 0.3 % (0-1); Eosinophil# 0.07 X10^3/uL; Hematocrit 40.1 % (40-54); Hemoglobin 13.6 g/dL (13.0-16.5); Lymphocyte # 1.48 X10^3/ul (0.83-4.51); Mean Corp Hgb Conc 33.9 g/dL (32-36); Mean Corpuscular Hgb 28.3 pg (27.0-32.0); Mean Corpuscular Volume 83.5 fL (80-94); Mean Platelet Vol. 10.3 fl (6.2-12.0); Monocyte# 0.67 X10^3/uL; Monocyte% 9.5 % (0-10); NRBC Flagged by Analyzer 0 % (0-5); Neutrophil # 4.79 X10^3/uL (2.7-7.7); Neutrophil % 68.1 % (47-70); Platelet Count 229 K/mm3 (150-450); RBC Distribution Width CV 13.5 % (11.6-14.6); RBC Distribution Width SD 40.7 fl (35.1-43.9)
[2023-10-13 17:16] LABS: ALB/GLOB Ratio 1.1 RATIO (0.9-2.4); AST(SGOT) 28 U/L (15-37); Alanine Aminotransfer ALT/SGPT 37 U/L (16-61); Albumin, Serum 3.7 g/dL (3.2-5.0); Alkaline Phosphatase 175 U/L (45-117); Anion Gap 10 (5-15); BUN 28 mg/dL (7-18); BUN/Creat Ratio 21.1 RATIO (10-20); Calcium,Total 8.8 mg/dL (8.5-10.1); Chloride 106 mmol/L (98-107); Creatinine, Serum 1.33 mg/dL (0.70-1.30); EST Glomerular Filtration Rate 59 mL/min (>60); Est Glom Filt Rate - Afr Amer 72 mL/min (>60); Estimated Creatinine Clearance 75.01 ml/min; Globulin 3.5 g/dL (2.2-4.2); Glucose 301 mg/dL (74-106); Protein, Total 7.2 g/dL (6.4-8.2); Sodium Level 135 mmol/L (136-145); Troponin-I HS 9 pg/mL (3.0-78.0)
[2023-10-13 18:45] VITALS: BP 145/71; PULSE 64; RESP 14; O2SAT 99
== END 2023-10-13 18:46 | disposition home or self-care (01) ==
PROVIDERS: Emergency Provider Emergency Medicine; PCP Family Medicine; Visit Provider Emergency Medicine
DX: M54.9 Dorsalgia, unspecified (principal); E11.9 Type 2 diabetes mellitus without complications; R06.02 Shortness of breath
CPT/HCPCS: 71275; 74177; 80053; 84484; 85025; 93005; 99283; J7030; Q9967; A4216

== ENCOUNTER → 2023-10-22 | Outpatient (CLI) | payer OTHER, SELFPAY ==
--- NOTE | 2023-10-22 14:10 | STRESSREP ---
Stress Test Report Pharmacologic myocardial perfusion stress test. 53-year-old man with a history of chest pain Resting EKG demonstrates sinus rhythm with a rate of 86 bpm. Resting blood pressure is 122/88 mmHg. 0.4 mg of regadenoson was infused per usual protocol followed by rapid intravenous saline flush injection. Continuous EKG monitoring was performed. The maximum heart rate was 104 bpm which was 63% of max impacted heart rate the maximum workload was 1 metabolic equivalent. At rest there were no ST or T wave changes noted to suggest ischemia and at peak infusion nonspecific ST changes were noted which did not meet the criteria for ischemia. No clinical angina is noted. The final blood pressure was 122/72 mmHg. Myocardial perfusion protocol. 14.9 mCi of technetium 99m sestamibi was injected at rest. 0.4 mg of regadenoson was infused per usual protocol. At peak infusion 45.0 mCi of technetium 99m sestamibi was injected stress images were obtained stress and rest images were reconstructed and compared in the short axis vertical long and horizontal long axis. Gated images were also obtained. Perfusion SPECT analysis: Review of the stress images demonstrate normal uptake of tracer noted in all areas of the myocardium. The resting images similar demonstrated normal uptake of tracer noted in all areas of the myocardium. No areas of reversibility are noted to suggest ischemia and no previous infarct is noted. Gated SPECT analysis: The gated ejection fraction is 70%. Conclusion: Normal pharmacologic myocardial perfusion stress test. Preserved ejection fraction.
== END | disposition home or self-care (01) ==
PROVIDERS: PCP Family Medicine; Referring Provider Family Medicine; Visit Provider Family Medicine
DX: R07.9 Chest pain, unspecified (principal)
CPT/HCPCS: 78452; 93017; A9500; A4216; J2785

== ENCOUNTER 2023-11-18 15:30 | Outpatient (RCR) | payer OTHER, SELFPAY ==
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
--- NOTE | 2023-11-18 16:03 | HP.PTDCSUM ---
Discharge Summary D/C summary: It has been my pleasure to treat ALEXEI BARRIOS referred by Dr. Stef Pandya DO, with the diagnosis of DORSALGIA for a total of 8 visit(s). Discharge Date: Please see the following information for a summary of their discharge status. Subjective Subjective: Doing better .. Overall Pain Bilateral Back: Pain Intensity (Out of 10): 4 LEFT RIBS: Pain Intensity (Out of 10): 4 R RIBS: Pain Intensity (Out of 10): 6 Overall Improvement % Improvement: 75 Objective Objective/Function: POSTURE: mod/severe thoracic kyphosis ,swayed lumbar NEURO: denies paresthesia/tingling AROM BUE: WFL shoulder 100 degrees PALAPTION: tender thoracic kyphosis MMT: BUE 4/5 ,RTC 4/5 ,shoulder 4-/5 THORACIC ROM: flexion mod loss ,extension severe loss ,rotation mod loss Goals Goal 1:: Patient to be I with HEP for spine Goal 2:: Patient to improve posture 80% of the time for ADLS Goal Progress: Progressing Goal 3:: Patient to demonstrate 50% improvement with decrease pain and improved function Goal Progress: Goal Met Goal 4:: Patient to improve thoracic ROM for function of recovery for job demands Goal Progress: Goal Met Goal 5:: Patient to improve back oswestry score by 5 points to improve QOL Goal Progress: Goal Met Plan Plan: D/C D/C Information d/c sentence: If there are questions or concerns regarding this patient's physical therapy, please feel free to call me at [phone]. Thank you for the referral of this patient. Sincerely, Russ Romero, PT, Cert MDT, OCS Balance/Gait/Functional tests Balance/Special Test Scores Oswestry Low Back Score: 10 Improvement % Improvement: 75
== END 2023-11-18 19:00 | disposition home or self-care (01) ==
LOC: PT 15:30
PROVIDERS: PCP Family Medicine; Referring Provider Family Medicine; Visit Provider Family Medicine
DX: M54.9 Dorsalgia, unspecified (principal)
CPT/HCPCS: 97110; 97140; 97162

== ENCOUNTER 2023-11-24 04:56 | Emergency (ER) | payer OTHER, SELFPAY ==
[2023-11-24 04:57] VITALS: BP 182/95; PULSE 108; RESP 15; TEMP 35.8; O2SAT 99; BMI 36.0
--- NOTE | 2023-11-24 05:08 | ED.VIS.DENTA ---
HPI History of Present Illness Chief Complaint: Dental Informant: patient Onset/Context/Timing Onset: Days Context: Gradual Onset Narrative Narrative: Patient presents secondary left-sided dental pain and facial swelling. He states he had small amount of facial swelling over the last day or 2. He made an appointment to see his dentist tomorrow. He woke this morning with significant swelling on the left side of his face so he came in for antibiotics. [facility] Medical History Diabetes High cholesterol Hypertension Home Medications amlodipine 5 mg tablet 5 mg PO DAILY 05/26/18 [History Last Taken Unknown] glipizide 5 mg tablet 10 mg PO BIDAC 05/26/18 [History Last Taken Unknown] losartan 25 mg tablet 25 mg PO DAILY 05/26/18 [History Last Taken Unknown] metoprolol tartrate 25 mg tablet 25 mg PO BID 05/26/18 [History Last Taken Unknown] pioglitazone 30 mg tablet 45 mg PO DAILY 05/26/18 [History Last Taken Unknown] Lasix 40 mg PO BID 10/07/18 [History Last Taken Unknown] Potassium Chloride 10 meq PO DAILY 10/07/18 [History Last Taken Unknown] Simvastatin 40 mg PO QHS 10/07/18 [History Last Taken Unknown] cyclobenzaprine 10 mg tablet 10 mg PO TID PRN Muscle Spasm #20 TABLETS 10/06/23 [Rx Last Taken Unknown] hydrocodone-acetaminophen 5-325mg 5mg-325mg 1 tab PO Q4H PRN PRN Pain 2 days #10 TABLETS 10/13/23 [Rx Last Taken Unknown] clindamycin HCl 150 mg capsule 300 mg (2 x 150 mg) PO 4X/DAY #80 CAPSULES 11/24/23 [Rx Last Taken Unknown] Allergy/AdvReac Type Severity Reaction Status Date / Time liraglutide [From Victoza] Allergy Rash Verified 11/24/23 05:02 metformin [From Glucophage] Allergy Rash Verified 11/24/23 05:02 Penicillins [PCN] Allergy Rash Verified 11/24/23 05:02 Sulfa (Sulfonamide Allergy Rash Verified 11/24/23 05:02 Antibiotics) Surgical History Hx of foot surgery Social History Smoking Status: Never smoker ROS ROS ED Constitutional Constitutional ED: Denies chills or fever(s) Eyes Eyes: Denies discharge from eye(s) ENT ENT ED: Reports other Details: Left-sided dental pain with left facial swelling ; Denies discharge from eye(s), rhinorrhea or sore throat Cardiovascular Cardiovascular: Denies chest pain Respiratory/Chest Respiratory/Chest: Denies cough or dyspnea Gastrointestinal Gastrointestinal: Denies abdominal pain, nausea or vomiting Musculoskeletal Musculoskeletal: Denies back pain or extremity pain Integumentary Denies Abrasions or rash Neurologic Neurologic: Denies headache(s) or weakness Psychiatric Psychiatric: Denies anxiety or depression Allergic/Immunologic Allergic/Immunologic ED: Denies lip swelling or urticaria EXAM Physical Exam Const Vital Signs: 11/24/23 04:57 11/24/23 05:59 Temperature 96.5 F L Temperature Source Temporal Pulse Rate 108 H 68 Respiratory Rate 15 16 Blood Pressure 182/95 H Blood Pressure Mean 124 Pulse Ox 99 97 Oxygen Delivery Method Room Air Positive well nourished and well developed General Appearance ED: well developed HEENT HEENT Narrative: Left-sided facial edema along the mandible. No erythema. Mild tenderness to the left mandibular molars with minimal gum edema. No trismus. No evidence of Kyler's angina. Eyes EOMs intact bilaterally Chest Wall inspection of chest normal and palpation of chest normal Resp normal respiratory effort and clear to auscultation bilaterally Cardio regular rate and regular rhythm GI non-tender Palpation: soft Extremity normal to inspection Neuro oriented x3 and moves all extremities Psych mental status grossly normal Skin no rashes or lesions noted MDM MDM MDM Narrative Medical decision making narrative: Patient be given a dose of clindamycin here and prescription for the same. He does have an allergy to penicillins. He will follow-up with his dentist tomorrow as scheduled. Discharge Plan Triage Chief Complaint: Dental ED Provider: Marie Reis Dx/Rx/DC Orders Clinical Impression: Dental abscess Instructions: ED Dental Abscess Prescriptions: New clindamycin HCl 150 mg capsule 300 mg PO 4X/DAY Qty: 80 0RF No Action amlodipine 5 MG tablet 5 mg PO DAILY losartan 25 MG tablet 25 mg PO DAILY pioglitazone 30 MG tablet 45 mg PO DAILY glipizide 5 MG tablet 10 mg PO BIDAC metoprolol tartrate 25 MG tablet 25 mg PO BID Lasix 40 mg PO BID Potassium Chloride 10 meq PO DAILY Simvastatin 40 mg PO QHS cyclobenzaprine 10 mg tablet 10 mg PO TID PRN (Reason: Muscle Spasm) Qty: 20 0RF hydrocodone-acetaminophen [hydrocodone-acetaminophen] 5-325 mg tablet 1 tab PO Q4H PRN PRN (Reason: Pain) 2 Days Qty: 10 0RF Primary Care Provider: Stef Pandya Referrals: Stef Pandya DO [Primary Care Provider] - Activity Restrictions/Additional Instructions: Follow-up with your dentist as scheduled. Disposition Disposition: Home, Self Care Discharge Date/Time: 11/24/23 06:19
--- OUTSIDE RECORDS SUMMARY | 2023-11-24 05:21 | XMS RPT_ITS | CCD ---
Author Name Unknown Address [address] [place] [address] Organization [facility] Results Test Name Value Interpretation Reference Range Facil ity Summary Purpose Family History No Family History Records FoundNo Family History Records Found Advance Directives No Advanced Directives Records FoundNo Advanced Directives Records Found Additional Source Comments (unrecognized sect ion and content) No Status Records FoundNo Status Records Found INFORMATION SOURCE (unrecogn ized section and content) DATE CREATED AUTHOR AUTHOR'S ORGANIZ ATION 06/10/2020 [facility] FOR RECORDS PERTAINING TO PATIENTS WHO ARE OR HAVE BEEN ENROLLED IN A CHEMICAL DEPENDENCY/SUBSTANCEABUSE PROGRAM, SOME INFORMATION MAY BE OMITTED. This clinical summary was aggregated from multiple sources. Caution should be exercised in using it in the provision of clinical care. This summary normalizes information from multiple sources, and as a consequence, information in this document may materially change the coding, format and clinical context of patient data. In addition, data may be omitted in some cases. CLINICAL DECISIONS SHOULD BE BASED ON THE PRIMARY CLINICAL RECORDS. [facility] [facility]. provides no warranty or guarantee of the accuracy or completeness of information in this document.
[2023-11-24] MEDS: Clindamycin HCl 150 MG Capsule 300 MG PO (05:32)
[2023-11-24 05:59] VITALS: PULSE 68; RESP 16; O2SAT 97
== END 2023-11-24 06:19 | disposition home or self-care (01) ==
LOC: ED 05:20
PROVIDERS: Emergency Provider Emergency Medicine; PCP Family Medicine; Visit Provider Emergency Medicine
DX: K04.7 Periapical abscess without sinus (principal); E11.638 Type 2 diabetes mellitus with other oral complications
CPT/HCPCS: 99282

== ENCOUNTER → 2024-03-13 | Outpatient (CLI) | payer OTHER, SELFPAY ==
--- NOTE | 2024-03-13 08:44 | MRI_ITS ---
STUDY: MRI LUMBAR SPINE WITHOUT CONTRAST REASON FOR EXAM: Male, 53 years old. Back pain pulled lower back out x2 months in pain hx: diabetes, high blood pressure, high cholesterol surgery hx: foot, hand surgeries TECHNIQUE: Standardized fat and water weighted pulse sequences were obtained in the sagittal and axial planes. COMPARISON: CT of abdomen and pelvis dated October 13, 2023 FINDINGS: On the state highway police officer image there is a subacute to acute compression fracture of the T9 vertebral body with a visible fracture line and mild loss of height at approximately 20% but no significant retropulsion. The T8 vertebral body has a wedge-shaped appearance with significant loss of height most likely due to a prior compression fracture. There is also several rounded low signal areas of susceptibility in the intervertebral disc space and endplate junction of T8 and T8-T9 suggesting prior surgical intervention to this region. Intermediate signal abnormality in the T8 and T9 vertebral bodies is most likely due to marrow edema on this T1 sequence, but this would have to be confirmed with a STIR sequence of the thoracic spine. This should also be evaluated to ensure disc does not represent an occult malignant process. A subacute compression fracture of the L4 vertebral body is present which is lost approximately 60% of its original height but demonstrates only minimal posterior cortex retropulsion. Normal lumbar lordosis. There is no substantial scoliosis. Normal conus medullaris that terminates at the T12 level. T12-L1: Mild anterior endplate spurring. Mild disc desiccation and disc space narrowing without posterior disc herniation or bulging. Normal bilateral facet joints. Normal central canal and bilateral lateral recesses. Normal bilateral intervertebral neural foramina. L1-2: Normal endplates. Mild disc desiccation. Small Schmorl''s node Normal disc height and morphology. Normal bilateral facet joints. Normal central canal and bilateral lateral recesses. Normal bilateral intervertebral neural foramina. L2-3: Normal endplates. Normal disc height, hydration and morphology. Normal bilateral facet joints. Normal central canal and bilateral lateral recesses. Normal bilateral intervertebral neural foramina. L3-4: Normal endplates. Mild disc desiccation. Normal disc height and morphology. Mild facet joint hypertrophy. Normal central canal and bilateral lateral recesses. Normal bilateral intervertebral neural foramina. L4-5: Normal endplates. Normal disc height, hydration and morphology. Mild to moderate facet joint hypertrophy. Mild central canal stenosis. Normal bilateral intervertebral neural foramina. L5-S1: Normal endplates. Diffuse disc desiccation with mild disc space narrowing and posterior annular bulging. Mild facet joint hypertrophy.. Normal central canal and bilateral lateral recesses. Normal bilateral intervertebral neural foramina. Normal visualized sacral ala. Normal visualized paraspinous soft tissue structures. MRI/Spine Lumbar (Routine) IMPRESSION: 1. On the state highway police officer image there is a subacute to acute compression fracture of the T9 vertebral body with a visible fracture line and mild loss of height at approximately 20% but no significant retropulsion. The T8 vertebral body has a wedge-shaped appearance with significant loss of height most likely due to a prior compression fracture. There is also several rounded low signal areas of susceptibility in the intervertebral disc space and endplate junction of T8 and T8-T9 suggesting prior surgical intervention to this region. 2. Intermediate signal abnormality in the T8 and T9 vertebral bodies is most likely due to marrow edema on this T1 sequence, but this would have to be confirmed with a STIR sequence of the thoracic spine. This should also be evaluated to ensure disc does not represent an occult malignant process. 3. Subacute compression fracture of the L4 vertebral body 4. Multilevel degenerative changes, as described above. Electronically Signed: Honorio Rod MD at 14:59 EDT ,
== END | disposition home or self-care (01) ==
PROVIDERS: PCP Family Medicine; Referring Provider Family Medicine; Visit Provider Family Medicine
DX: M54.16 Radiculopathy, lumbar region (principal)
CPT/HCPCS: 72148

== ENCOUNTER → 2024-03-14 | Outpatient (CLI) | payer OTHER, SELFPAY ==
[2024-03-14 12:19] LABS: Absolute Lymphocyte Count 1.55 X10^3/uL (0.83-4.51); Basophil# 0.03 X10^3/uL; Basophil% 0.6 % (0-1); Eosinophil# 0.14 X10^3/uL; Eosinophils% 2.7 % (0-5); Hematocrit 44.2 % (40-54); Lymphocyte # 1.55 X10^3/ul (0.83-4.51); Lymphocyte % 30.3 % (19-41); Mean Corp Hgb Conc 31.7 g/dL (32-36); Mean Corpuscular Hgb 27.2 pg (27.0-32.0); Mean Corpuscular Volume 85.8 fL (80-94); Mean Platelet Vol. 10.9 fl (6.2-12.0); Monocyte# 0.37 X10^3/uL; Monocyte% 7.2 % (0-10); NRBC Flagged by Analyzer 0 % (0-5); Neutrophil # 3.02 X10^3/uL (2.7-7.7); Platelet Count 246 K/mm3 (150-450); RBC Distribution Width CV 13.8 % (11.6-14.6); RBC Distribution Width SD 43.1 fl (35.1-43.9); Red Blood Count 5.15 M/mm3 (4.6-6.2); White Blood Count 5.1 K/mm3 (4.4-11.0)
[2024-03-14 12:37] LABS: AST(SGOT) 19 U/L (15-37); Alanine Aminotransfer ALT/SGPT 25 U/L (16-61); Albumin, Serum 3.3 g/dL (3.2-5.0); Alkaline Phosphatase 175 U/L (45-117); Anion Gap 5 (5-15); BUN 17 mg/dL (7-18); BUN/Creat Ratio 21.1 RATIO (10-20); Calcium,Total 8.8 mg/dL (8.5-10.1); Chloride 100 mmol/L (98-107); Creatinine, Serum 0.81 mg/dL (0.70-1.30); EST Glomerular Filtration Rate 105 mL/min (>60); Est Glom Filt Rate - Afr Amer 128 mL/min (>60); Globulin 3.3 g/dL (2.2-4.2); Glucose 272 mg/dL (74-106); Potassium 4.4 mmol/L (3.5-5.1); Protein, Total 6.6 g/dL (6.4-8.2); Sodium Level 134 mmol/L (136-145)
[2024-03-14 12:41] LABS: PTHIN 43.4 pg/mL (18.4-80.1)
[2024-03-14 13:54] LABS: Vitamin D,25 Hydroxy 20.6 ng/mL
[2024-03-16 07:09] LABS: Beta-2-Microglobulin, S 1.4 mg/L (0.6-2.4)
[2024-03-16 16:10] LABS: Immunofixation Result, Serum Comment: (.); Immunoglobulin A 109 mg/dL (90-386); Immunoglobulin G 759 mg/dL (603-1613); Immunoglobulin M 69 mg/dL (20-172); PROEL- A/G Ratio 1.2 (0.7-1.7); PROEL- Albumin 3.2 g/dL (2.9-4.4); PROEL- Alpha-1 Globulin 0.2 g/dL (0.0-0.4); PROEL- Alpha-2 Globulin 0.7 g/dL (0.4-1.0); PROEL- Gamma Globulin 0.7 g/dL (0.4-1.8); PROEL- Globulin, Total 2.6 g/dL (2.2-3.9); PROEL- TOTAL PROTEIN 5.8 g/dL (6.0-8.5); PROEL-M-Spike Not Observed g/dL (Not Observed); PROELU- Albumin, Urine 47.8 % (.); PROELU- Alpha-1-Globulin,Ur 2.8 % (.); PROELU- Beta Globulin, Ur 24.8 % (.); PROELU- Gamma Globulin, Ur 12.6 % (.); Total Protein, Ur 23.4 mg/dL (Not Estab.)
== END | disposition home or self-care (01) ==
LOC: BFHLAB 08:31
PROVIDERS: PCP Family Medicine; Referring Provider Family Medicine; Visit Provider Family Medicine
DX: R74.8 Abnormal levels of other serum enzymes (principal); S22.000A Wedge compression fracture of unspecified thoracic vertebra, initial encounter for closed fracture; R79.89 Other specified abnormal findings of blood chemistry; E55.9 Vitamin D deficiency, unspecified
CPT/HCPCS: 80053; 82232; 82306; 82784; 83970; 84165; 84166; 85025; 86334

== ENCOUNTER → 2024-03-27 | Outpatient (CLI) | payer OTHER, SELFPAY ==
[2024-03-27 18:00] LABS: Ferritin 41 ng/mL (26-388)
== END | disposition home or self-care (01) ==
LOC: BFHLAB 16:12
PROVIDERS: PCP Family Medicine; Referring Provider Family Medicine; Visit Provider Family Medicine
DX: R53.83 Other fatigue (principal); R79.89 Other specified abnormal findings of blood chemistry
CPT/HCPCS: 36415; 82728; 84402; 84403

== ENCOUNTER → 2024-04-10 | Outpatient (CLI) | payer OTHER, SELFPAY ==
[2024-04-10 18:44] LABS: Follicle Stimulating Hormone 14.9 mIU/mL; Luteinizing Hormone 12.4 mIU/mL; Prolactin 21.7 ng/mL
== END | disposition home or self-care (01) ==
PROVIDERS: PCP Family Medicine; Referring Provider Family Medicine; Visit Provider Family Medicine
DX: E29.1 Testicular hypofunction (principal)
CPT/HCPCS: 36415; 83001; 83002; 84146; 84402; 84403

== ENCOUNTER → 2024-04-13 | Outpatient (CLI) | payer OTHER, SELFPAY ==
--- NOTE | 2024-04-13 15:37 | BD_ITS ---
STUDY: DUAL ENERGY X-RAY ABSORPTIOMETRY / DXA REASON FOR EXAM: Male, 53 years old. 32.000A TECHNIQUE: Bone Mineral Density (BMD) measurements of both forearms were obtained. COMPARISON: None. FINDINGS: Right Forearm: g/cm2 (0.612) / T-score (-1.4) / Z-score (-0.8) Left Forearm: g/cm2 (0.568) / T-score (-2.3) / Z-score (-1.7) BD/Dexa Bone Density/Append Skel IMPRESSION: The patient is considered osteopenic as outlined below according to World [place] Organization (WHO) criteria with a high fracture risk. Reference Information: The T-score is the number of standard deviations above or below the standard which is normal for young adults at their peak bone mineral density. The World Health Organization (WHO) interprets the T-scores as follows: Above -1 Normal bone density Between -1 and -2.5 Osteopenia Equal to / or below -2.5 Osteoporosis As a practical clinical guideline, osteopenia may be graded as follows: Mild -1 through -1.5 Moderate -1.6 through -2.0 Severe -2.1 through -2.4 The Z-score is the number of standard deviations above or below age-matched controls. A Z-score of less than -1.5 would be considered abnormal. References: 1. NIH Osteoporosis and Related Bone Diseases www osteo.org 2. International Society for Clinical Densitometry www iscd.org 3. National Osteoporosis Foundation www nof.org Electronically Signed: George Duncan MD at 12:55 EDT ,
== END | disposition home or self-care (01) ==
PROVIDERS: PCP Family Medicine; Referring Provider Family Medicine; Visit Provider Family Medicine
DX: S22.000A Wedge compression fracture of unspecified thoracic vertebra, initial encounter for closed fracture (principal); S32.000A Wedge compression fracture of unspecified lumbar vertebra, initial encounter for closed fracture
CPT/HCPCS: 77081

== ENCOUNTER 2024-05-19 14:00 | Outpatient (RCR) | payer OTHER, SELFPAY ==
[2024-05-12 08:26] VITALS: BP 179/94; PULSE 82; RESP 18; TEMP 35.8; BMI 70.5
--- NOTE | 2024-05-12 12:52 | PCM.WC.HP ---
History of Present Illness Date of Service: 05/12/24 Chief Complaint: venous stasis ulcer right LE History of Wound: David is a 53 year old male that presents to the wound center for evaluation and treatment of venous ulcer of right lower leg. He noticed this approximately 1 month ago. He has not been applying any treatments to his ulcers. 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 His last A1C was 02/2024 and was 12.8 %. 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 He also had repeat venous testing 04/08/23 which showed incompetence and vascular surgery was considered but was not done at that time. He has not been able to place compression because he is unable to bend to pull on compression stockings due to arthritis in his back. He is not able to wrap with RADHA bandages either. Circaids were tried previously but he was unable to do this as well. He admits some throbbing pain. There is intermittent drainage. He has chronic lymphedema. [facility] Medical History High cholesterol Diabetes Hypertension Home Medications ?Medication ?Instructions ?Recorded ?Last Taken ?Type amlodipine 5 mg tablet 5 mg PO DAILY 05/26/18 Unknown History glipizide 5 mg tablet 10 mg PO BIDAC 05/26/18 Unknown History losartan 25 mg tablet 25 mg PO DAILY 05/26/18 Unknown History metoprolol tartrate 25 mg tablet 25 mg PO BID 05/26/18 Unknown History Lasix 40 mg PO BID 10/07/18 Unknown History Potassium Chloride 10 meq PO DAILY 10/07/18 Unknown History Simvastatin 40 mg PO QHS 10/07/18 Unknown History insulin regular hum U-500 conc 500 25 unit subcut .meals 05/12/24 Unknown History unit/mL(3 mL) subcut pen (Humulin R U-500 (Conc) Insulin Kwikpen) semaglutide 2 mg/dose (8 mg/3 mL) 2 mg subcut QWEEK 05/12/24 Unknown History subcutaneous pen injector (Ozempic) Allergy/AdvReac Type Severity Reaction Status Date / Time liraglutide (From Victoza) Allergy Rash Verified 11/24/23 05:02 metformin (From Glucophage) Allergy Rash Verified 11/24/23 05:02 Penicillins (PCN) Allergy Rash Verified 11/24/23 05:02 Sulfa (Sulfonamide Allergy Rash Verified 11/24/23 05:02 Antibiotics) Surgical History Hx of foot surgery Social History Smoking Status: Never smoker ROS Constitutional Constitutional: Denies chills, fatigue or fever(s) Eyes Eyes: Denies blurry vision, change in vision or loss of vision ENT HEENT: Denies dysphagia, hearing loss or sore throat Cardiovascular Cardiovascular: Denies chest pain, edema or palpitations Respiratory/Chest Respiratory/Chest: Denies dry cough, dyspnea, dyspnea on exertion, productive cough or wheezing Gastrointestinal Gastrointestinal: Denies diarrhea, nausea or vomiting Genitourinary Genitourinary: Denies dysuria or polyuria Musculoskeletal Musculoskeletal: Denies arthralgias, joint stiffness or muscle weakness Integumentary Integumentary: Reports erythema and wounds Neurologic Neurologic: Denies dizziness, memory loss or weakness Psychiatric Psychiatric: Denies homicidal ideation or suicidal ideation Endocrine Endocrinology: Denies polydipsia, polyphagia or polyuria Hematologic/Lymphatic Hematologic/Lymphatic: Denies easy bleeding or easy bruising Allergic/Immunologic Allergic/Immunologic: Denies throat swelling, tongue swelling or urticaria Vital Signs Vital Signs Vital Signs: 05/12/24 08:26 Temperature 96.5 F L Temperature Source Temporal Pulse Rate 82 Respiratory Rate 18 Blood Pressure 179/94 H Blood Pressure Mean 122 Blood Pressure Source Monitor Blood Pressure Position Semi-Fowlers Blood Pressure Location Left Arm Weight Weight: 256 kg Body Mass Index (BMI) 70.5 Physical Exam Const alert, oriented x3 and no apparent distress General Appearance: cooperative and comfortable HEENT normocephalic Resp normal respiratory effort Effort and Inspection: able to speak in complete sentences Cardio regular rate and regular rhythm Extremity Extremity Narrative: Varicose and reticular veins and edema of bilateral lower extremities. Skin Wounds: wounds noted Wound Narrative: There is hemosiderin staining and discoloration from prior wound scarring bilaterally. Psych mental status grossly normal, thought process normal, cooperative and affect normal Debridement Note Debridement Note Wound debrided: right lateral lower leg cluster Laterality: Right Type of Debridement: Excisional debridement Anesthesia Used: 4% Lidocaine Solution and 5% Lidocaine Gel Depth: Down to and including healthy tissue and in the subcutaneous layer Percentage of wound debrided: 100 Instrument Used: 3mm curette Severity: Fat Layer Exposed Amount of bleeding with debridement: Mild Bleeding Controlled with: Compression and gauze Patient tolerated procedure: Patient tolerated procedure well Post-Debridement Measurements and Additional Note: Post-Debridement Measurements/Treatment - Nurse 1 - General Ulcer Assessment Start: 05/12/24 08:21 Freq: Status: Active Protocol: MART Activity Type Activity Date Activity User E-sign Co-sign Detail Recorded Client Recorded Date Recorded By Document 05/12/24 08:26 RB wound 05/12/24 08:35 RB 05/12/24 08:26 - Today's Visit Information Type of service Initial Visit Arrival Mode Ambulatory Transfer Assistance None Patient Identification Verified (Name & Yes ) Patient Requires Transmission-Based No Precautions Height and Weight Height 6 ft 3 in Weight 256 kg Weight in Pounds 564.4 lbs Body Mass Index (BMI) 70.5 BMI Classification Obese BSA - Caden 3.41 Vital Signs Temperature (97.8 F-99.1 F) 96.5 F L Temperature Source Temporal Pulse Rate (60-100) 82 Pulse Location Monitor Respiratory Rate (12-18) 18 Respiratory rate source Observation Blood Pressure (90/60-120/80) 179/94 H Blood Pressure Mean 122 Source Monitor Position Semi-Fowlers Blood Pressure Location Left Arm History Since Last Visit- (Skip if this is Patient's initial visit) Have you changed medications since your No last visit? Any new allergies or adverse reactions No Had a fall/change in ADL's that may No increase risk of falls Signs or symptoms of abuse and/or No neglect since last visit Have you been in the hospital since your No last visit? Has dressing in place as prescribed Yes Has compression in place as prescribed No Has offloadiing in place as prescribed No Experienced any changes in pain level or No management Pain Scale: 0-10 Numeric Is Patient Pain Free? No bilat LE -Description Aching -Intensity 4 -Duration (hours) Chronic -Pain Behavior Restlessness -Pain Aggravating Factors Sitting -Alleviating Factors/Interventions Medication -Effectiveness of Alleviating Factor/ Minimally Intervention effective Lower Extremity Assessment/ Foot Assessment/ Toe Nail Assessment Right -Posterior Tibial Palpable Yes -Posterior Tibial Doppler Multiphasic -Dorsalis Pedis Palpable Yes -Dorsalis Pedis Doppler Multiphasic -Extremity Color Hemosiderin -Hair Growth on Legs No -Hair Growth on Toes No -Temperature of Extremity Warm -Capillary Refill Greater than 3 Seconds -Dependent Rubor No -Blanched when Elevated No -Lipodermatosclerosis No -Other Deformity No -Prior Foot Ulcer No -Charcot Joint No -Prior Amputation No -Thick Yes -Discolored No -Deformed No -Improper Length & Hygeine Yes Left -Posterior Tibial Palpable Yes -Posterior Tibial Doppler Multiphasic -Dorsalis Pedis Palpable Yes -Dorsalis Pedis Doppler Multiphasic -Extremity Color Hemosiderin -Hair Growth on Legs No -Hair Growth on Toes No -Temperature of Extremity Warm -Capillary Refill Greater than 3 Seconds -Dependent Rubor No -Blanched when Elevated No -Lipodermatosclerosis No -Other Deformity No -Prior Foot Ulcer No -Charcot Joint No -Prior Amputation No -Thick Yes -Discolored No -Deformed No -Improper Length & Hygeine Yes Neuropathy Assessment Feet - Top Side and Bottom <Entered> (a) Communication Assessment Preferred language Pashto Scientific Software Developer Required No Able to Read Yes Able to Write Yes Communication Tools None Caregiver Communication Skills No Impairment Impairment Right Hearing Abillity Normal Left Hearing Abillity Normal Visual Assistive Devices Glasses Teaching Assessment Preferences Verbal,Written, Demonstration Barriers to Learning Low Literacy Readiness To Learn Good Willingness to Engage in Self Management Med Activies Readiness to Engage in Self Management Med Activities Anxiety Level Calm Cooperation Cooperative Perception Coherent Interest in Health Problem Asks Questions Education Importance Acknowledges Need Does Patient Smoke tobacco or other No substances Smoking Status Never smoker Is Patient Diabetic Yes Functional Assessment Recent Decline in Ability to Perform Denies Any Declines Culture/Cheondoism/[employer]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 [employer] Control Room Operator to contact place of church No Teaching: Wound Center Control Swelling with Leg Elevation -Person Taught Patient -Teaching Method Discussion -Response to teaching Verbalize understanding (a) 1 - + throughout WC - Nurse 1 - General Ulcer Measurement Start: 05/12/24 08:21 Freq: Status: Active Protocol: Activity Type Activity Date Activity User E-sign Co-sign Detail Recorded Client Recorded Date Recorded By Document 05/12/24 08:26 RB wound 05/12/24 08:35 RB 05/12/24 08:26 Wound Center Nurse 1 12. RLE cluster -Combined with other wound No -Current Size (cm) - Length 7.5 -Current Size (cm) - Width 3 -Current Size (cm) - Depth 0.1 -Total Square Cm 22.5 -Photo Taken Yes -Tunneling No -Undermining/Tunneling No -Circular Undermining No -Exudate Amt Small -Exudate Type Serosanguineous -Wound Margin Distinct, Outline Attached -Granulation Amt Small (1-33%) -Granulation Quality [place] -Slough/Fibrin Yes -Necrosis Amt Large (67-100%) -Necrotic Tissue Type Adherent Slough -Structure Exposed N/A -Texture (Milly-wound Skin Appearance) Assessed -Moisture (Milly-wound Skin Appearance) Assessed -Color (Milly-wound Skin Appearance) Assessed -Temperature (Milly-wound Skin No Abnormality Appearance) (Pt Warm) -Tenderness on Palpation (Milly-wound No Skin Appearance) -Ulcer Cleansing Wound Cleanser -Foul Odor after Cleansing No -Anesthetic Used 5% Lidocaine Gel Lower Limb Edema Present Yes Right Calf (cm) 41 Right Ankle (cm) 22 Left Calf (cm) 40.2 Left Ankle (cm) 22.8 WC - Nurse 2 - General Ulcer CM Notes Start: 05/12/24 08:21 Freq: Status: Active Protocol: Activity Type Activity Date Activity User E-sign Co-sign Detail Recorded Client Recorded Date Recorded By Document 05/12/24 09:06 [facility] 05/12/24 09:17 05/12/24 09:06 Wound Center Nurse 2 12. RLE cluster -Time 09:06 -Correct Patient Yes -Correct Side, Site, Position Yes -Correct Procedure Yes -Procedure Performed Yes -Type of Procedure Debridement -Clinical Debridement Subcutaneous -Tissue Removed Subcutaneous -Post Debridement (cm) - Length 4.0 -Post Debridement (cm) - Width 1.2 -Post Debridement (cm) - Depth 0.1 -Total Square (Post) (cm) 4.80 -Area of Debridement (cm) - Length 4.0 -Area of Debridement (cm) - Width 1.2 -Total Square (Area) (cm) 4.80 -Tunneling No -Undermining/Tunneling No -Circular Undermining No -Wound/Ulcer Outcome Not Healed -Ulcer Cleansing Rinsed/ Irrigated with Saline -Foul Odor after Cleansing No -Bioengineered Tissue No -Bleeding Controlled with Pressure -Treatment Response Procedure Tolerated Well -Debridement - Subq, 1st 20sq cm Yes Pain Scale: 0-10 Numeric Is Patient Pain Free? No bilat LE -Description Aching -Intensity 3 -Duration (hours) Chronic -Pain Behavior No Change in Behavior -Alleviating Factors/Interventions Will continue to monitor, Emotional Support -Comments lidocaine to wound WC - Nurse 3 - General Ulcer D/C NN Start: 05/12/24 08:21 Freq: Status: Active Protocol: Activity Type Activity Date Activity User E-sign Co-sign Detail Recorded Client Recorded Date Recorded By Document 05/12/24 09:45 DS 1 05/12/24 09:50 DS 05/12/24 09:45 Wound Care Center Nurse 3 12. RLE cluster -Ulcer Cleansing Rinsed/ Irrigated with Saline -Foul Odor after Cleansing No -Primary Dressing Applied Promogran -Promogran 1 Right -Multi-Layered Wrap Application Unna Boot - Right ($) Pain Scale: 0-10 Numeric Is Patient Pain Free? Yes WC - Visit Discharge Discharge Condition Stable Ambulatory Status Ambulatory Transportation Private Auto Medication Reconcilliation completed & Yes provided to patient/care provider Clinical Summary of Care Provided Yes Assessment/Plan Assessment/Plan (1) HTN (hypertension): CODE(S): I10 - Essential (primary) hypertension QUALIFIERS: Hypertension type: primary hypertension Qualified Code(s): I10 - Essential (primary) hypertension (2) Hyperlipidemia: CODE(S): E78.5 - Hyperlipidemia, unspecified QUALIFIERS: Hyperlipidemia type: unspecified Qualified Code(s): E78.5 - Hyperlipidemia, unspecified (3) Venous insufficiency of both lower extremities: CODE(S): I87.2 - Venous insufficiency (chronic) (peripheral) (4) Edema of both legs: CODE(S): R60.0 - Localized edema (5) Venous ulcer of right lower extremity with varicose veins: CODE(S): I83.019 - Varicose veins of right lower extremity with ulcer of unspecified site; L97.919 - Non-pressure chronic ulcer of unspecified part of right lower leg with unspecified severity (6) Lymphedema of both lower extremities: CODE(S): I89.0 - Lymphedema, not elsewhere classified (7) Insulin dependent diabetes mellitus: (8) Diabetes mellitus type 2 with neurological manifestations: CODE(S): E11.49 - Type 2 diabetes mellitus with other diabetic neurological complication (9) Uncontrolled diabetes mellitus: QUALIFIERS: Diabetes mellitus type: type 2 Glycemic state: with hyperglycemia Qualified Code(s): E11.65 - Type 2 diabetes mellitus with hyperglycemia PLAN: Plan Debridement performed today in clinic as annotated above. At home wound-care instructions: Will apply UNNA boot compression wrap today with Promogran to open areas. Keep dressing clean and dry. He would benefit from lymphedema pumps to treat his lymphedema and prevent formation of ulcers in the future. He has tried and failed multiple conservative treatments in the past. He has been having issues with ulcers and lymphedema for over 6 years. He is compliant with exercise. Off-loading: The patient was instructed to avoid pressure and friction on the affected areas. Reposition every 2 hours at minimum. Avoid prolonged standing and/or dangling of legs. When seated, feet should be elevated at chest level. Frequent ambulation is encouraged. Diet: Patient encouraged to increase protein intake while taking caution to avoid high carbohydrate and/or sugar intake. Labs/cultures/imaging: Wound culture taken today. Follow-up: Return in 1 week for wound care follow up. Return sooner or report to the emergency room should symptoms worsen, or new symptoms arise. Note: [employer] speech recognition infant nanny software was used to create portions of this document. Sound-alike and misspelled words, as well as other infant nanny errors may be contained in the documentation.
[2024-05-19 14:15] VITALS: BP 135/80; PULSE 107; RESP 18; TEMP 36.6; BMI 70.5
--- NOTE | 2024-05-19 15:33 | PN.PCM_ITS ---
History of Present Illness Date of Service: 05/19/24 Chief Complaint: venous stasis ulcer right LE History of Wound: David is a 53 year old male that presents to the wound center for evaluation and treatment of venous ulcer of right lower leg. He noticed this approximately 1 month ago. He has not been applying any treatments to his ulcers. He works at the [employer] and he is on his feet all the time there. His last A1C was 02/2024 and was 12.8 %. 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 He also had repeat venous testing 04/08/23 which showed incompetence and vascular surgery was considered but was not done at that time. He has not been able to place compression because he is unable to bend to pull on compression stockings due to arthritis in his back. He is not able to wrap with RADHA bandages either. Circaids were tried previously but he was unable to do this as well. He admits some throbbing pain. There is intermittent drainage. He has chronic lymphedema. Subjective Subjective Kian returns today for evaluation and treatment of right lower leg ulcers and lymphedema. He tolerated treatment with UNNA boot compression and had a 4 cm decrease in his calf circumference compared to last week. His ulcers are healed. He denies any pain, erythema or drainage or fever or chills. His wound culture did come back positive and he is on doxycycline and tolerating this well. Objective Data Objective Data Vital Signs: Vital Signs Temp Pulse Resp BP O2 Del Method 97.8 F 107 H 18 135/80 H Room Air 05/19/24 14:15 05/19/24 14:15 05/19/24 14:15 05/19/24 14:15 05/19/24 14:15 Oxygen Delivery Method Room Air Weight: 256 kg Body Mass Index (BMI) 70.5 Lab / Micro Data Micro: Microbiology 05/12/24 09:16 Ulcer, Decubitus - Leg, Right Gram Stain - Final 05/12/24 09:16 Ulcer, Decubitus - Leg, Right Wound Culture - Final Staphylococcus aureus 05/12/24 09:16 Ulcer, Decubitus - Leg, Right Anaerobic Culture - Final No anaerobic bacteria isolated. Physical Exam Const alert, oriented x3 and no apparent distress General Appearance: cooperative and comfortable HEENT normocephalic Resp normal respiratory effort Effort and Inspection: able to speak in complete sentences Cardio regular rate and regular rhythm Extremity Extremity Narrative: Varicose and reticular veins and edema of bilateral lower extremities. Skin Wounds: wounds noted Wound Narrative: There is hemosiderin staining and discoloration from prior wound scarring b ilaterally. Psych mental status grossly normal, thought process normal, cooperative and affect normal Debridement Note Debridement Note Wound debrided: right lateral LE Laterality: Right No debridement was completed: No debridement was completed today (ulcers healed) Post-Debridement Measurements and Additional Note: Post-Debridement Measurements/Treatment WC - Nurse 1 - General Ulcer Assessment Start: 05/12/24 08:21 Freq: Status: Active Protocol: MART Activity Type Activity Date Activity User E-sign Co-sign Detail Recorded Client Recorded Date Recorded By Document 05/12/24 08:26 RB wound 05/12/24 08:35 RB Document 05/19/24 14:15 GM wc 05/19/24 14:17 GM 05/12/24 05/19/24 08:26 14:15 WC - Today's Visit Information Type of service Initial Visit Follow-up Visit (Physician/PRESIDENT ) Arrival Mode Ambulatory Ambulatory Transfer Assistance None None Patient Identification Verified (Name & Yes Yes ) Patient Requires Transmission-Based No Precautions Height and Weight Height 6 ft 3 in Weight 256 kg Weight in Pounds 564.4 lbs Body Mass Index (BMI) 70.5 70.5 BMI Classification Obese Obese BSA - Caden 3.41 Vital Signs Temperature (97.8 F-99.1 F) 96.5 F L 97.8 F Temperature Source Temporal Temporal Pulse Rate (60-100) 82 107 H Pulse Location Monitor Monitor Respiratory Rate (12-18) 18 18 Respiratory rate source Observation Observation Oxygen Delivery Method Room Air Blood Pressure (90/60-120/80) 179/94 H 135/80 H Blood Pressure Mean (mm Hg) 122 98 Source Monitor Monitor Position Semi-Fowlers Sitting Blood Pressure Location Left Arm Left Arm History Since Last Visit- (Skip if this is Patient's initial visit) Have you changed medications since your No No last visit? Any new allergies or adverse reactions No No Had a fall/change in ADL's that may No No increase risk of falls Signs or symptoms of abuse and/or No No neglect since last visit Have you been in the hospital since your No No last visit? Has dressing in place as prescribed Yes Yes Has compression in place as prescribed No Yes Has offloadiing in place as prescribed No N/A Experienced any changes in pain level or No No management Pain Scale: 0-10 Numeric Is Patient Pain Free? No Yes bilat LE -Description Aching -Intensity 4 -Duration (hours) Chronic -Pain Behavior Restlessness -Pain Aggravating Factors Sitting -Alleviating Factors/Interventions Medication -Effectiveness of Alleviating Factor/ Minimally Intervention effective Lower Extremity Assessment/ Foot Assessment/ Toe Nail Assessment Right -Posterior Tibial Palpable Yes -Posterior Tibial Doppler Multiphasic -Dorsalis Pedis Palpable Yes -Dorsalis Pedis Doppler Multiphasic -Extremity Color Hemosiderin -Hair Growth on Legs No -Hair Growth on Toes No -Temperature of Extremity Warm -Capillary Refill Greater than 3 Seconds -Dependent Rubor No -Blanched when Elevated No -Lipodermatosclerosis No -Other Deformity No -Prior Foot Ulcer No -Charcot Joint No -Prior Amputation No -Thick Yes -Discolored No -Deformed No -Improper Length & Hygeine Yes Left -Posterior Tibial Palpable Yes -Posterior Tibial Doppler Multiphasic -Dorsalis Pedis Palpable Yes -Dorsalis Pedis Doppler Multiphasic -Extremity Color Hemosiderin -Hair Growth on Legs No -Hair Growth on Toes No -Temperature of Extremity Warm -Capillary Refill Greater than 3 Seconds -Dependent Rubor No -Blanched when Elevated No -Lipodermatosclerosis No -Other Deformity No -Prior Foot Ulcer No -Charcot Joint No -Prior Amputation No -Thick Yes -Discolored No -Deformed No -Improper Length & Hygeine Yes Neuropathy Assessment Feet - Top Side and Bottom <Entered> (a) Communication Assessment Preferred language [place] [employer] Reconditioning Inspector Required No Able to Read Yes Able to Write Yes Communication Tools None Caregiver Communication Skills No Impairment Impairment Right Hearing Abillity Normal Left Hearing Abillity Normal Visual Assistive Devices Glasses Teaching Assessment Preferences Verbal,Written, Demonstration Barriers to Learning Low Literacy Readiness To Learn Good Willingness to Engage in Self Management Med Activies Readiness to Engage in Self Management Med Activities Anxiety Level Calm Cooperation Cooperative Perception Coherent Interest in Health Problem Asks Questions Education Importance Acknowledges Need Does Patient Smoke tobacco or other No substances Smoking Status Never smoker Is Patient Diabetic Yes Functional Assessment Recent Decline in Ability to Perform Denies Any Declines Culture/Gnosticist/Nailer Hand Cultural/Gnosticist Needs that may affect No Treatment Plan Would you allow our hospital medical director to No meet you for the purpose of spiritual/ emotional support? Nailer Hand to contact place of confucianism No Teaching: Wound Center Control Swelling with Leg Elevation -Person Taught Patient -Teaching Method Discussion -Response to teaching Verbalize understanding (a) 1 - + throughout WC - Nurse 1 - General Ulcer Measurement Start: 05/12/24 08:21 Freq: Status: Active Protocol: Activity Type Activity Date Activity User E-sign Co-sign Detail Recorded Client Recorded Date Recorded By Document 05/12/24 08:26 RB wound 05/12/24 08:35 RB Document 05/19/24 14:15 GM wc 05/19/24 14:17 GM 05/12/24 05/19/24 08:26 14:15 Wound Center Nurse 1 12. RLE cluster -Combined with other wound No -Current Size (cm) - Length 7.5 -Current Size (cm) - Width 3 -Current Size (cm) - Depth 0.1 -Total Square Cm 22.5 -Date of Last Picture (Recall this 05/19/24 field) -Photo Taken Yes Yes -Epithelialization Small 1-33% -Tunneling No -Undermining/Tunneling No No -Circular Undermining No No -Exudate Amt Small Small -Exudate Type Serosanguineous Serosanguineous -Wound Margin Distinct, Distinct, Outline Outline Attached Attached -Granulation Amt Small (1-33%) Medium (34-66%) -Granulation Quality [place] Pale -Slough/Fibrin Yes -Necrosis Amt Large (67-100%) Small (1-33%) -Necrotic Tissue Type Adherent Slough -Structure Exposed N/A -Texture (Milly-wound Skin Appearance) Assessed Assessed -Moisture (Milly-wound Skin Appearance) Assessed Assessed -Color (Milly-wound Skin Appearance) Assessed Assessed -Temperature (Milly-wound Skin No Abnormality No Abnormality Appearance) (Pt Warm) (Pt Warm) -Tenderness on Palpation (Milly-wound No Skin Appearance) -Ulcer Cleansing Wound Cleanser -Foul Odor after Cleansing No No -Anesthetic Used 5% Lidocaine 5% Lidocaine Gel Gel Lower Limb Edema Present Yes No Right Calf (cm) 41 37.4 Right Ankle (cm) 22 22.0 Left Calf (cm) 40.2 Left Ankle (cm) 22.8 - Nurse 2 - General Ulcer CM Notes Start: 05/12/24 08:21 Freq: Status: Active Protocol: Activity Type Activity Date Activity User E-sign Co-sign Detail Recorded Client Recorded Date Recorded By Document 05/12/24 09:06 [facility] 05/12/24 09:17 GM Document 05/19/24 14:20 [facility] 05/19/24 14:35 05/12/24 05/19/24 09:06 14:20 Wound Center Nurse 2 12. RLE cluster -Time 09:06 14:21 -Correct Patient Yes Yes -Correct Side, Site, Position Yes Yes -Correct Procedure Yes -Procedure Performed Yes -Type of Procedure Debridement -Clinical Debridement Subcutaneous -Tissue Removed Subcutaneous -Post Debridement (cm) - Length 4.0 -Post Debridement (cm) - Width 1.2 -Post Debridement (cm) - Depth 0.1 -Total Square (Post) (cm) 4.80 -Area of Debridement (cm) - Length 4.0 -Area of Debridement (cm) - Width 1.2 -Total Square (Area) (cm) 4.80 -Tunneling No -Undermining/Tunneling No -Circular Undermining No -Wound/Ulcer Outcome Not Healed Healed- Epithelialized -Ulcer Cleansing Rinsed/ Irrigated with Saline -Foul Odor after Cleansing No -Bioengineered Tissue No -Bleeding Controlled with Pressure -Treatment Response Procedure Tolerated Well -Debridement - Subq, 1st 20sq cm Yes -Wound Comment(s) healed Pain Scale: 0-10 Numeric Is Patient Pain Free? No Yes bilat LE -Description Aching -Intensity 3 -Duration (hours) Chronic -Pain Behavior No Change in Behavior -Alleviating Factors/Interventions Will continue to monitor, Emotional Support -Comments lidocaine to wound - Nurse 3 - General Ulcer D/C NN Start: 05/12/24 08:21 Freq: Status: Active Protocol: Activity Type Activity Date Activity User E-sign Co-sign Detail Recorded Client Recorded Date Recorded By Document 05/12/24 09:45 DS 1 05/12/24 09:50 DS Document 05/19/24 14:36 [facility] 05/19/24 14:36 05/12/24 05/19/24 09:45 14:36 Wound Care Center Nurse 3 12. RLE cluster -Ulcer Cleansing Rinsed/ Irrigated with Saline -Foul Odor after Cleansing No -Primary Dressing Applied Promogran -Promogran 1 Right -Lotion applied to leg before No compression wrap -Multi-Layered Wrap Application Unna Boot - Right ($) -Tubular Bandage Double Layer -Size of Tubigrip Used Size E -Size E ($) 2 Pain Scale: 0-10 Numeric Is Patient Pain Free? Yes Yes WC - Visit Discharge Discharge Condition Stable Stable Ambulatory Status Ambulatory Ambulatory Transportation Private Auto Private Auto Medication Reconcilliation completed & Yes provided to patient/care provider Clinical Summary of Care Provided Yes Yes Assessment/Plan Assessment/Plan (1) HTN (hypertension): CODE(S): I10 - Essential (primary) hypertension QUALIFIERS: Hypertension type: primary hypertension Qualified Code(s): I10 - Essential (primary) hypertension (2) Hyperlipidemia: CODE(S): E78.5 - Hyperlipidemia, unspecified QUALIFIERS: Hyperlipidemia type: unspecified Qualified Code(s): E78.5 - Hyperlipidemia, unspecified (3) Venous insufficiency of both lower extremities: CODE(S): I87.2 - Venous insufficiency (chronic) (peripheral) (4) Edema of both legs: CODE(S): R60.0 - Localized edema (5) Venous ulcer of right lower extremity with varicose veins: CODE(S): I83.019 - Varicose veins of right lower extremity with ulcer of unspecified site; L97.919 - Non-pressure chronic ulcer of unspecified part of right lower leg with unspecified severity (6) Lymphedema of both lower extremities: CODE(S): I89.0 - Lymphedema, not elsewhere classified (7) Insulin dependent diabetes mellitus: (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 At home wound-care instructions: His ulcers are healed. Will apply tubigrip compression today and have him follow up in 1 week with another provider as he is unable to get off work for Wednesday afternoons to continue with me. Keep dressing clean and dry. He would benefit from lymphedema pumps to treat his lymphedema and prevent formation of ulcers in the future. He has tried and failed multiple conservative treatments in the past such as compression stockings as he is not able to don them on his own due to arthritis in his hands and back. He has also tried Circaid compression wraps and they fall down and bunch up on him and are ineffective. He has been having issues with ulcers and lymphedema for over 6 years. He is compliant with exercise. Off-loading: The patient was instructed to avoid pressure and friction on the affected areas. Reposition every 2 hours at minimum. Avoid prolonged standing and/or dangling of legs. When seated, feet should be elevated at chest level. Frequent ambulation is encouraged. Diet: Patient encouraged to increase protein intake while taking caution to avoid high carbohydrate and/or sugar intake. Labs/cultures/imaging: Wound culture positive and he is currently on doxycycline. Follow-up: Return in 1 week for wound care follow up. Return sooner or report to the emergency room should symptoms worsen, or new symptoms arise. Note: [email or web address] speech recognition financial advisor trainee software was used to create portions of this document. Sound-alike and misspelled words, as well as other financial advisor trainee errors may be contained in the documentation.
== END 2024-05-21 23:59 | disposition home or self-care (01) ==
LOC: WC 14:00
PROVIDERS: PCP Family Medicine; Referring Provider Family Medicine; Visit Provider Family Medicine
DX: I83.018 Varicose veins of right lower extremity with ulcer other part of lower leg (principal); L97.812 Non-pressure chronic ulcer of other part of right lower leg with fat layer exposed; E11.49 Type 2 diabetes mellitus with other diabetic neurological complication; E11.59 Type 2 diabetes mellitus with other circulatory complications; Z79.4 Long term (current) use of insulin; I10 Essential (primary) hypertension; E78.00 Pure hypercholesterolemia, unspecified; R60.0 Localized edema; I89.0 Lymphedema, not elsewhere classified; Z79.899 Other long term (current) drug therapy
CPT/HCPCS: 11042; 29580; 87070; 87075; 87077; 87186; 87205; 99213; G0463

== ENCOUNTER 2024-05-29 14:33 | Outpatient (RCR) | payer OTHER, SELFPAY ==
[2024-05-22 00:49] VITALS: BP 135/80; PULSE 107; RESP 18; TEMP 36.6; BMI 70.5
[2024-05-29 14:44] VITALS: BP 146/84; PULSE 88; RESP 16; TEMP 36.2; BMI 70.5
--- NOTE | 2024-05-29 16:27 | PCM.WC.HP ---
History of Present Illness Date of Service: 05/29/24 Chief Complaint: venous stasis ulcer right LE History of Wound: David is a 53 year old male that presents to the wound center for evaluation and treatment of venous ulcer of right lower leg. He noticed this approximately March 2024. He was seen by Dr. Mckeon and it was healed at his last visit. She wanted him to follow up with another provider since he is not able to get off work on Fridays. 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 His last A1C was 02/2024 and was 12.8 %. 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 He also had repeat venous testing 04/08/23 which showed incompetence and vascular surgery was considered but was not done at that time. He has not been able to place compression because he is unable to bend to pull on compression stockings due to arthritis in his back. He is not able to wrap with RADHA bandages either. Circaids were tried previously but he was unable to do this as well. He has been wearing tubigrips for compression. He states he still has issues getting them on. He has chronic lymphedema. Progress of Wound: Right leg ulcer cluster remains healed. He edema is +1-+2 with the double tubigrip. He states he has a hard time getting the compression on. [facility] Medical History High cholesterol Diabetes Hypertension Home Medications ?Medication ?Instructions ?Recorded ?Last Taken ?Type amlodipine 5 mg tablet 5 mg PO DAILY 05/26/18 Unknown History glipizide 5 mg tablet 10 mg PO BIDAC 05/26/18 Unknown History losartan 25 mg tablet 25 mg PO DAILY 05/26/18 Unknown History metoprolol tartrate 25 mg tablet 25 mg PO BID 05/26/18 Unknown History Lasix 40 mg PO BID 10/07/18 Unknown History Potassium Chloride 10 meq PO DAILY 10/07/18 Unknown History Simvastatin 40 mg PO QHS 10/07/18 Unknown History insulin regular hum U-500 conc 500 25 unit subcut .meals 05/12/24 Unknown History unit/mL(3 mL) subcut pen (Humulin R U-500 (Conc) Insulin Kwikpen) semaglutide 2 mg/dose (8 mg/3 mL) 2 mg subcut QWEEK 05/12/24 Unknown History subcutaneous pen injector (Ozempic) Allergy/AdvReac Type Severity Reaction Status Date / Time liraglutide (From Victoza) Allergy Rash Verified 11/24/23 05:02 metformin (From Glucophage) Allergy Rash Verified 11/24/23 05:02 Penicillins (PCN) Allergy Rash Verified 11/24/23 05:02 Sulfa (Sulfonamide Allergy Rash Verified 11/24/23 05:02 Antibiotics) Surgical History Hx of foot surgery Social History Smoking Status: Never smoker ROS Constitutional Constitutional: Denies chills, fatigue or fever(s) Eyes Eyes: Denies blurry vision, change in vision or loss of vision ENT HEENT: Denies dysphagia, hearing loss or sore throat Cardiovascular Cardiovascular: Denies chest pain, edema or palpitations Respiratory/Chest Respiratory/Chest: Denies dry cough, dyspnea, dyspnea on exertion, productive cough or wheezing Gastrointestinal Gastrointestinal: Denies diarrhea, nausea or vomiting Genitourinary Genitourinary: Denies dysuria or polyuria Musculoskeletal Musculoskeletal: Denies arthralgias, joint stiffness or muscle weakness Integumentary Integumentary: Reports erythema and wounds Neurologic Neurologic: Denies dizziness, memory loss or weakness Psychiatric Psychiatric: Denies homicidal ideation or suicidal ideation Endocrine Endocrinology: Denies polydipsia, polyphagia or polyuria Hematologic/Lymphatic Hematologic/Lymphatic: Denies easy bleeding or easy bruising Allergic/Immunologic Allergic/Immunologic: Denies throat swelling, tongue swelling or urticaria Vital Signs Vital Signs Vital Signs: 05/29/24 14:44 Temperature 97.2 F L Temperature Source Temporal Pulse Rate 88 Respiratory Rate 16 Blood Pressure 146/84 H Blood Pressure Mean 104 Blood Pressure Source Monitor Blood Pressure Position Sitting Blood Pressure Location Left Arm Oxygen Delivery Method Room Air Weight Weight: 564 lb 6.134 oz Body Mass Index (BMI) 70.5 Physical Exam Const alert, oriented x3 and no apparent distress General Appearance: cooperative and comfortable HEENT normocephalic Head and Scalp: atraumatic Eyes General Eye: normal appearance of both eyes Resp normal respiratory effort and clear to auscultation bilaterally Effort and Inspection: able to speak in complete sentences Cardio regular rate and regular rhythm Extremity Extremity Narrative: Varicose and reticular veins and +1-+2 edema of bilateral lower extremities. Skin Wound Narrative: No wounds present today. Neuro oriented x3 Psych mental status grossly normal, thought process normal, cooperative and affect normal Debridement Note Debridement Note Post-Debridement Measurements and Additional Note: Post-Debridement Measurements/Treatment - Nurse 1 - General Ulcer Assessment Start: 05/29/24 14:43 Freq: Status: Active Protocol: MART Activity Type Activity Date Activity User E-sign Co-sign Detail Recorded Client Recorded Date Recorded By Document 05/29/24 14:44 [facility] [id number] 05/29/24 14:47 [facility] 05/29/24 14:44 WC - Today's Visit Information Type of service Follow-up Visit (Physician/[employer] ) Arrival Mode Ambulatory Transfer Assistance None Patient Identification Verified (Name & Yes ) Patient Requires Transmission-Based No Precautions Height and Weight Body Mass Index (BMI) 70.5 BMI Classification Obese Vital Signs Temperature (97.8 F-99.1 F) 97.2 F L Temperature Source Temporal Pulse Rate (60-100) 88 Pulse Location Monitor Respiratory Rate (12-18) 16 Respiratory rate source Observation Oxygen Delivery Method Room Air Blood Pressure (90/60-120/80) 146/84 H Blood Pressure Mean (mm Hg) 104 Source Monitor Position Sitting Blood Pressure Location Left Arm History Since Last Visit- (Skip if this is Patient's initial visit) Have you changed medications since your No last visit? Any new allergies or adverse reactions No Had a fall/change in ADL's that may No increase risk of falls Signs or symptoms of abuse and/or No neglect since last visit Have you been in the hospital since your No last visit? Has compression in place as prescribed Yes Has offloadiing in place as prescribed N/A Experienced any changes in pain level or No management Left Footwear Diabetic Shoe Right Footwear Diabetic Shoe Pain Scale: 0-10 Numeric Is Patient Pain Free? Yes DESMOND Lopez Nurse 1 - General Ulcer Measurement Start: 05/29/24 14:43 Freq: Status: Active Protocol: Activity Type Activity Date Activity User E-sign Co-sign Detail Recorded Client Recorded Date Recorded By Document 05/29/24 14:44 [facility] [id number] 05/29/24 14:47 [facility] 05/29/24 14:44 Wound Center Nurse 1 12. RLE cluster -Combined with other wound No -Current Size (cm) - Length 0.1 -Current Size (cm) - Width 0.1 -Current Size (cm) - Depth 0.1 -Total Square Cm 0.01 -Date of Last Picture (Recall this 05/29/24 field) -Photo Taken Yes -Epithelialization Large 67-100% -Necrosis Amt Small (1-33%) -Necrotic Tissue Type Eschar -Texture (Milly-wound Skin Appearance) Assessed, Scarring -Moisture (Milly-wound Skin Appearance) Assessed -Color (Milly-wound Skin Appearance) Assessed -Temperature (Milly-wound Skin No Abnormality Appearance) (Pt Warm) -Tenderness on Palpation (Milly-wound No Skin Appearance) Right Calf (cm) 38.3 Right Ankle (cm) 22.3 - Nurse 2 - General Ulcer CM Notes Start: 05/29/24 14:43 Freq: Status: Active Protocol: Activity Type Activity Date Activity User E-sign Co-sign Detail Recorded Client Recorded Date Recorded By Document 05/29/24 15:05 05/29/24 15:08 05/29/24 15:05 Wound Center Nurse 2 12. RLE cluster -Correct Patient No -Correct Side, Site, Position No -Correct Procedure No -Procedure Performed No -Post Debridement (cm) - Length 0 -Post Debridement (cm) - Width 0 -Post Debridement (cm) - Depth 0 -Total Square (Post) (cm) 0 -Area of Debridement (cm) - Length 0 -Area of Debridement (cm) - Width 0 -Total Square (Area) (cm) 0 -Wound/Ulcer Outcome Healed- Epithelialized Pain Scale: 0-10 Numeric Is Patient Pain Free? Yes - Nurse 3 - General Ulcer D/C NN Start: 05/29/24 14:43 Freq: Status: Active Protocol: Activity Type Activity Date Activity User E-sign Co-sign Detail Recorded Client Recorded Date Recorded By Document 05/29/24 15:08 05/29/24 15:13 05/29/24 15:08 Wound Care Center Nurse 3 Left -Tubular Bandage Double Layer -Size of Tubigrip Used Size E -Size E ($) 2 Right -Tubular Bandage Double Layer -Size of Tubigrip Used Size E -Size E ($) 2 Pain Scale: 0-10 Numeric Is Patient Pain Free? Yes WC - Visit Discharge Discharge Condition Stable Ambulatory Status Ambulatory Transportation Private Auto Medication Reconcilliation completed & Yes provided to patient/care provider Clinical Summary of Care Provided Yes Charges/Coding Visit Charges Office Visits / Consults: 11754 OV L3 Est 20min Assessment/Plan Assessment/Plan (1) Edema of both legs: CODE(S): R60.0 - Localized edema (2) Venous insufficiency of both lower extremities: CODE(S): I87.2 - Venous insufficiency (chronic) (peripheral) (3) Lymphedema of both lower extremities: CODE(S): I89.0 - Lymphedema, not elsewhere classified (4) HTN (hypertension): CODE(S): I10 - Essential (primary) hypertension QUALIFIERS: Hypertension type: primary hypertension Qualified Code(s): I10 - Essential (primary) hypertension (5) Hyperlipidemia: CODE(S): E78.5 - Hyperlipidemia, unspecified QUALIFIERS: Hyperlipidemia type: unspecified Qualified Code(s): E78.5 - Hyperlipidemia, unspecified (6) Venous ulcer of right lower extremity with varicose veins: CODE(S): I83.019 - Varicose veins of right lower extremity with ulcer of unspecified site; L97.919 - Non-pressure chronic ulcer of unspecified part of right lower leg with unspecified severity (7) Insulin dependent diabetes mellitus: (8) Diabetes mellitus type 2 with neurological manifestations: CODE(S): E11.49 - Type 2 diabetes mellitus with other diabetic neurological complication (9) Uncontrolled diabetes mellitus: QUALIFIERS: Diabetes mellitus type: type 2 Glycemic state: with hyperglycemia Qualified Code(s): E11.65 - Type 2 diabetes mellitus with hyperglycemia PLAN: Plan Patient evaluated today at the wound healing center. At home wound-care instructions: His ulcers are healed. Will apply tubigrip compression today. Recommend that he continue to wear the double tubigrip for compression until he can go to [facility] and get measured for light compression 10-15 mmHg. Recommend him wearing 2 lower compression stockings so it is easier to for him to get on but it will give him medium amount of compression, especially since he is on his feet for long hours while at work. Explained to him to go get measured first thing in the morning (while still wearing his tubigrips to help prevent swelling as much as possible). Hopefully he will be able to get the lower compression stockings on and doubling up would help with the amount of compression that his needs. He may benefit from lymphedema pumps to treat his lymphedema and prevent formation of ulcers in the future. He has tried and failed multiple conservative treatments in the past such as compression stockings as he is not able to don them on his own due to arthritis in his hands and back. He has also tried Circaid compression wraps and they fall down and bunch up on him and are ineffective. He has been having issues with ulcers and lymphedema for over 6 years. He is compliant with exercise. Off-loading: The patient was instructed to avoid pressure and friction on the affected areas. Reposition every 2 hours at minimum. Avoid prolonged standing and/or dangling of legs. When seated, feet should be elevated at chest level. Frequent ambulation is encouraged. Diet: Patient encouraged to increase protein intake while taking caution to avoid high carbohydrate and/or sugar intake. Labs/cultures/imaging: Wound culture positive and he is currently on doxycycline. Follow-up: Return in 1 week for wound care follow up. Return sooner or report to the emergency room should symptoms worsen, or new symptoms arise.
--- NOTE | 2024-06-01 09:31 | WC ---
PHOTO 05/29/2024 ELVIE
== END 2024-06-01 13:10 | disposition home or self-care (01) ==
LOC: WC 14:33
PROVIDERS: PCP Family Medicine; Referring Provider Family Medicine; Visit Provider Nurse Practitioner Family
DX: I83.018 Varicose veins of right lower extremity with ulcer other part of lower leg (principal); L97.811 Non-pressure chronic ulcer of other part of right lower leg limited to breakdown of skin; E11.65 Type 2 diabetes mellitus with hyperglycemia; E11.49 Type 2 diabetes mellitus with other diabetic neurological complication; Z79.4 Long term (current) use of insulin; I89.0 Lymphedema, not elsewhere classified; I10 Essential (primary) hypertension; E78.5 Hyperlipidemia, unspecified; Z79.2 Long term (current) use of antibiotics; Z79.85 Long-term (current) use of injectable non-insulin antidiabetic drugs; Z79.84 Long term (current) use of oral hypoglycemic drugs; Z79.899 Other long term (current) drug therapy
CPT/HCPCS: 99213; G0463

== ENCOUNTER 2024-06-05 16:00 | Outpatient (RCR) | payer OTHER, SELFPAY ==
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
== END 2024-06-05 19:00 | disposition home or self-care (01) ==
LOC: PT 16:00
PROVIDERS: PCP Family Medicine; Referring Provider Anesthesiology Pain Medicine; Visit Provider Anesthesiology Pain Medicine
DX: M80.08XD Age-related osteoporosis with current pathological fracture, vertebra(e), subsequent encounter for fracture with routine healing (principal); M54.9 Dorsalgia, unspecified
CPT/HCPCS: 97110; 97162; 97530

== ENCOUNTER → 2024-09-26 | Outpatient (CLI) | payer OTHER, SELFPAY ==
[2024-09-26 18:21] LABS: Vitamin D,25 Hydroxy 28.3 ng/mL
[2024-09-26 18:32] LABS: PSA,Total - Annual Screen 0.03 ng/mL (0.00-4.00)
== END | disposition home or self-care (01) ==
LOC: BFHLAB 15:09
PROVIDERS: PCP Family Medicine; Referring Provider Family Medicine; Visit Provider Family Medicine
DX: E29.1 Testicular hypofunction (principal); E55.9 Vitamin D deficiency, unspecified; Z12.5 Encounter for screening for malignant neoplasm of prostate
CPT/HCPCS: 36415; 82306; 84153; 84403; G0103

== ENCOUNTER 2024-10-28 14:49 | Emergency (ER) | payer OTHER, SELFPAY ==
[2024-10-28 14:50] VITALS: BP 152/106; PULSE 106; RESP 15; TEMP 35.8; O2SAT 98; BMI 32.2
--- NOTE | 2024-10-28 15:10 | EDS_ITS ---
HPI <KENZIE Garham - Last Filed: 10/28/24 16:46> History of Present Illness Chief Complaint: Fall Narrative Narrative: Patient is a 54-year-old male with history of diabetes, hypertension hyperlipidemia, osteoporosis who presents to the emergency department with complaints of left-sided rib pain after mechanical fall at 10:45 AM this morning. 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 Patient is he was carrying some trays when he hit a box on the floor falling landing on his left side. Patient [place] any head or neck injury. Patient did take ibuprofen however secondary to the pain he wants to make sure he did not break his ribs. <Dr. Rip Block DO - Last Filed: 10/28/24 22:05> Narrative Narrative: Patient is a 54-year-old male with history of diabetes, hypertension hyperlipidemia, osteoporosis who presents to the emergency department with complaints of left-sided rib pain after mechanical fall at 10:45 AM this morning. 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 Patient is he was carrying some trays when he hit a box on the floor falling landing on his left side. Patient denies any head or neck injury. Patient did take ibuprofen however secondary to the pain he wants to make sure he did not break his ribs. [facility] <KENZIE Graham - Last Filed: 10/28/24 16:46> [facility] Medical History High cholesterol Diabetes Hypertension Home Medications ?Medication ?Instructions ?Recorded ?Last Taken ?Type amlodipine 5 mg tablet 5 mg PO DAILY 05/26/18 Unknown History glipizide 5 mg tablet 10 mg PO BIDAC 05/26/18 Unknown History losartan 25 mg tablet 25 mg PO DAILY 05/26/18 Unknown History metoprolol tartrate 25 mg tablet 25 mg PO BID 05/26/18 Unknown History Lasix 40 mg PO BID 10/07/18 Unknown History Potassium Chloride 10 meq PO DAILY 10/07/18 Unknown History Simvastatin 40 mg PO QHS 10/07/18 Unknown History insulin regular hum U-500 conc 500 25 unit subcut .meals 05/12/24 Unknown Hist ory unit/mL(3 mL) subcut pen (Humulin R U-500 (Conc) Insulin Kwikpen) semaglutide 2 mg/dose (8 mg/3 mL) 2 mg subcut QWEEK 05/12/24 Unknown History subcutaneous pen injector (Ozempic) ibuprofen 600 mg tablet 600 mg PO Q8H PRN PRN pain #20 10/28/24 Unknown Rx TABLETS Allergy/AdvReac Type Severity Reaction Status Date / Time liraglutide (From Victoza) Allergy Rash Verified 10/28/24 14:50 metformin (From Glucophage) Allergy Rash Verified 10/28/24 14:50 Penicillins (PCN) Allergy Rash Verified 10/28/24 14:50 Sulfa (Sulfonamide Allergy Rash Verified 10/28/24 14:50 Antibiotics) Surgical History Hx of foot surgery Social History Smoking Status: Never smoker ROS <KENZIE Graham - Last Filed: 10/28/24 16:46> ROS ED ROS Narrative Constitutional: Negative for fever, chills, weight loss, weakness Eyes: Negative for vision loss, vision change, double vision ENT: Negative for any sore throat, ear pain, congestion Cardiovascular: Negative for any chest pain, tightness, palpitations Respiratory: Negative for any cough, sputum production, hemoptysis, dyspnea, dyspnea on exertion, orthopnea Gastrointestinal: Negative for any abdominal pain, nausea, vomiting, diarrhea, constipation, blood in stool, blood in vomit : Negative for any urinary frequency, dysuria, retention, blood in urine Muscle skeletal: Negative for any neck pain, back pain. Positive left-sided rib pain Neurological: Negative for any headache, syncope, dizziness Skin: Negative for any rashes, itching, abrasions, lacerations Psychiatric: Negative for any depression, anxiety, stress, suicidal ideation, homicidal ideation Hematologic: Negative for any excessive bruising, easy bleeding EXAM <KENZIE Graham - Last Filed: 10/28/24 16:46> Physical Exam Narrative Exam Narrative: Vital signs reviewed. HEET: Head normocephalic atraumatic, TMs clear bilaterally. Posterior pharynx is clear, moist mucous membranes. Nares clear bilaterally. Neck: Supple with no lymphadenopathy or tenderness. No signs of meningismus. Cardiac: Regular rate and rhythm no murmurs gallops or rubs, equal peripheral pulses bilaterally. Respiratory: Lungs clear to auscultation bilaterally. Tenderness to the left lateral ribs, no crepitus, no signs of trauma. Equal breath sounds. Abdomen: Soft, nontender, nondistended. No abdominal bruit or pulsatile masses. No hepatosplenomegaly Extremities: No peripheral edema, no signs of gross trauma or deformity. Active full range of motion of all extremities. Neuro: Cranial nerves II through XII intact, no focal neurological deficits. Skin: Clean dry and intact with no rash, purpura, petechiae, vesicles or pustules. Backs/flank: No CVA tenderness, no midline spinal tenderness, no deformity. Psych: Normal mood and affect. No SI, HI or acute psychosis. Const Vital Signs: 10/28/24 14:50 10/28/24 15:00 Temperature 96.5 F L Temperature Source Temporal Pulse Rate 106 H Respiratory Rate 15 Respiratory Effort Normal Non-Labored Respiratory Depth Normal Respiratory Pattern Normal Blood Pressure 152/106 H Blood Pressure Mean 121 Pulse Ox 98 Oxygen Delivery Method Room Air <Dr. Rip Block DO - Last Filed: 10/28/24 22:05> Physical Exam Const Vital Signs: 10/28/24 14:50 10/28/24 15:00 Temperature 96.5 F L Temperature Source Temporal Pulse Rate 106 H Respiratory Rate 15 Respiratory Effort Normal Non-Labored Respiratory Depth Normal Respiratory Pattern Normal Blood Pressure 152/106 H Blood Pressure Mean 121 Pulse Ox 98 Oxygen Delivery Method Room Air [facility] <KENZIE Graham - Last Filed: 10/28/24 16:46> [facility] Radiography Diagnostic Testing: Clinical Impression(s) from Imaging Studies Ribs w/Chest X-Ray 10/28/24 15:12 IMPRESSION: Negative chest and left ribs series. Electronically Signed: Rodriguez Loera MD at 16:33 EST , Treatment and Re-Evaluation :: Differential diagnosis includes however is not limited to: Rib fracture, rib contusion, pneumothorax, hemothorax Patient appears generally well, vital signs are stable, patient is nontoxic- appearing. Presenting to the emergency department complaints of left rib injury after mechanical fall while at work. Patient received x-rays of the left rib series, patient will receive oral Tylenol. All radiologic examinations were read, reviewed by the emergency department attending. From these reads, a plan of care will be put in place. Patient on reevaluation was unremarkable. Patient's x-ray of the left ribs shows negative chest and left rib series. Patient will be given ibuprofen prescription, will be able to return to work tomorrow. Instructed to perform gentle stretching, ice and heat. All questions were answered, patient stable for discharge. <Dr. Rip Block DO - Last Filed: 10/28/24 22:05> [facility] Radiography Diagnostic Testing: Clinical Impression(s) from Imaging Studies Ribs w/Chest X-Ray 10/28/24 15:12 IMPRESSION: Negative chest and left ribs series. Electronically Signed: Rodriguez Loera MD at 16:33 EST , Discharge Plan Triage Chief Complaint: Fall ED Midlevel Provider: Jassi Ley ED Provider: Rip Block Dx/Rx/DC Orders Clinical Impression: Contusion of rib Instructions: ED Bruise, Rib Prescriptions: New ibuprofen 600 mg tablet 600 mg PO Q8H PRN PRN (Reason: pain) Qty: 20 0RF No Action amlodipine 5 MG tablet 5 mg PO DAILY losartan 25 MG tablet 25 mg PO DAILY glipizide 5 MG tablet 10 mg PO BIDAC metoprolol tartrate 25 MG tablet 25 mg PO BID Lasix 40 mg PO BID Potassium Chloride 10 meq PO DAILY Simvastatin 40 mg PO QHS Ozempic 2 mg/dose (8 mg/3 mL) pen injector 2 mg subcut QWEEK Humulin R U-500 (Conc) Kwikpen 500 unit/mL (3 mL) insulin pen 25 unit subcut .meals Primary Care Provider: Stef Pandya Referrals: Stef Pandya DO [Primary Care Provider] - [facility] [Non-Staff] - Activity Restrictions/Additional Instructions: Please form gentle stretching, ice and heat. You need [facility]up with the [facility]. Print Language: Maori Disposition Disposition: Home, Self Care Discharge Date/Time: 10/28/24 17:01
--- NOTE | 2024-10-28 15:12 | RAD_ITS ---
EXAM: XR LEFT RIBS AND AP CHEST, 3 OR MORE VIEWS CLINICAL INDICATION: fall TECHNIQUE: Frontal and oblique views of the left ribs and frontal view of the chest. COMPARISON: No relevant prior studies available. FINDINGS: LUNGS AND PLEURAL SPACES: Unremarkable. No consolidation or edema. No pneumothorax. No effusion. HEART: Unremarkable. Cardiac silhouette not enlarged. MEDIASTINUM: Central airways and mediastinal contour are unremarkable. BONES/JOINTS: Unremarkable. No evidence of displaced rib fractures. RAD/Ribs Uni Min 3V w/PA Chest IMPRESSION: Negative chest and left ribs series. Electronically Signed: Rodriguez Loera MD at 16:33 EST ,
[2024-10-28] MEDS: Acetaminophen 500 MG Tablet 1000 MG PO (15:29)
== END 2024-10-28 17:01 | disposition home or self-care (01) ==
PROVIDERS: Emergency Provider Emergency Medicine; PCP Family Medicine; Visit Provider Emergency Medicine
DX: S20.212A Contusion of left front wall of thorax, initial encounter (principal); E11.9 Type 2 diabetes mellitus without complications; W18.09XA Striking against other object with subsequent fall, initial encounter; Y92.129 Unspecified place in nursing home as the place of occurrence of the external cause; Y99.0 Civilian activity done for income or pay; I10 Essential (primary) hypertension; M81.0 Age-related osteoporosis without current pathological fracture; E78.00 Pure hypercholesterolemia, unspecified; Z88.0 Allergy status to penicillin; Z88.2 Allergy status to sulfonamides; Z79.84 Long term (current) use of oral hypoglycemic drugs; Z79.899 Other long term (current) drug therapy
CPT/HCPCS: 71101; 99282

== ENCOUNTER → 2024-10-30 | Outpatient (CLI) | payer OTHER, SELFPAY ==
--- NOTE | 2024-10-30 15:02 | RAD_ITS ---
INDICATION: left rib pain EXAMINATION/TECHNIQUE: X-RAY - XR Ribs Unilateral W/ PA Chest Min 3 Views COMPARISON: Prior study dated: 10/28/2024 FINDINGS: SOFT TISSUES: No soft tissue swelling or gas. BONES: Cortical step off at the lateral left sixth rib suspicious for a nondisplaced fracture. No sclerotic or destructive changes observed. VISUALIZED LUNGS: Clear. No pneumothorax. RAD/Ribs Uni Min 3V w/PA Chest IMPRESSION: Suspect nondisplaced lateral left sixth rib fracture.. Electronically Signed: Emerson Gutierrez MD at 15:51 EST ,
== END | disposition home or self-care (01) ==
PROVIDERS: PCP Family Medicine; Referring Provider Physician Assistant; Visit Provider Physician Assistant
DX: S20.212A Contusion of left front wall of thorax, initial encounter (principal)
CPT/HCPCS: 71101

== ENCOUNTER 2025-01-19 09:00 | Outpatient (RCR) | payer OTHER, SELFPAY ==
[2024-12-29 09:53] VITALS: BP 188/102; PULSE 98; RESP 16; TEMP 36.1
--- NOTE | 2024-12-29 10:55 | HP.PCM_ITS ---
History of Present Illness Date of Service: 12/29/24 Chief Complaint: Left arch plantar ulcer History of Wound: David is a 54 year old male that presents to the wound center for evaluation and treatment of an ulcer of his left foot. The ulcer appeared approximately a month ago. He took his shoe off after work and his sock was bloody and soaked with drainage and there was a blister that had broke open. He has been applying gauze and washing with soap daily to treat the ulcer but it has not improved. He has not been on any antibiotics recently. He denies systemic symptoms such as fever, chills, erythema, odor. 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 His last A1C was 10/2024 and was 13.6 %. He is a very poorly controlled diabetic on insulin. He does not have diabetic shoes. He does see Dr. Ozuna for podiatry for diabetic foot exams. 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 He also had repeat venous testing 04/08/23 which showed incompetence and vascular surgery was considered but was not done at that time. He has not been able to place compression because he is unable to bend to pull on compression stockings due to arthritis in his back. He is not able to wrap with RADHA bandages either. Circaids were tried previously but he was unable to do this as well. He has been wearing tubigrips for compression. He states he still has issues getting them on at times when his back is flared up. He has chronic lymphedema. [facility] Medical History Carpal tunnel syndrome Traumatic closed nondisplaced fracture of one rib of left side High cholesterol Diabetes Hypertension Home Medications ?Medication ?Instructions ?Recorded ?Last Taken ?Type amlodipine 5 mg tablet 5 mg PO DAILY 05/26/18 Unkno wn History losartan 25 mg tablet 25 mg PO DAILY 05/26/18 Unkn own History metoprolol tartrate 25 mg tablet 25 mg PO BID 05/26/18 Unknown History Lasix 40 mg PO BID 10/07/18 Unknow n History Potassium Chloride 10 meq PO DAILY 10/07/18 Unk nown History Simvastatin 40 mg PO QHS 10/07/18 Unknow n History ibuprofen 600 mg tablet 600 mg PO Q8H PRN PRN pain # 20 10/28/24 Unknown Rx TABLETS alendronate 70 mg tablet 70 mg PO QWEEK 11/06/24 Unkn own History cholecalciferol (vitamin D3) 1,250 1,250 mcg PO QWEEK 11/06/24 Unknown History mcg (50,000 unit) capsule insulin regular hum U-500 conc 500 100 unit (0.2 mL) s ubcut TIDWMEAL 11/06/24 Unknown Rx unit/mL(3 mL) subcut pen (Humulin #18 mL R U-500 (Conc) Insulin Kwikpen) sertraline 100 mg tablet 100 mg PO QDAY 11/06/24 Unkn own History testosterone 1.62 % (20.25 mg/1.25 1 packet transderma l QDAY 11/06/24 Unknown History gram) transdermal gel packet tirzepatide 7.5 mg/0.5 mL 7.5 mg (0.5 mL) subcut QWEEK #2 mL 11/06/24 Unknown Rx subcutaneous pen injector (Mounjaro) ciprofloxacin HCl 500 mg tablet 500 mg PO BID #20 tabs 12/29/24 Unknown Rx Allergy/AdvReac Type Severity Reaction Status Date / Time liraglutide (From Victoza) Allergy Rash Verified 12/29/24 10:04 metformin (From Glucophage) Allergy Rash Verified 12/29/24 10:04 Penicillins (PCN) Allergy Rash Verified 12/29/24 10:04 Sulfa (Sulfonamide Allergy Rash Verified 12/29/24 10:04 Antibiotics) Family History Other Alcoholism Arthritis CVA (cerebral vascular accident) Cancer Depression Diabetes Heart disease High cholesterol Hypertension Thyroid disorder Surgical History Hx of foot surgery Social History Smoking Status: Never smoker Homelessness:: Sheltered ROS Constitutional Constitutional: Denies chills, fatigue or fever(s) Eyes Eyes: Denies blurry vision, change in vision or loss of vision ENT HEENT: Denies dysphagia, hearing loss or sore throat Cardiovascular Cardiovascular: Denies chest pain, edema or palpitations Respiratory/Chest Respiratory/Chest: Denies dry cough, dyspnea, dyspnea on exertion, productive cough or wheezing Gastrointestinal Gastrointestinal: Denies diarrhea, nausea or vomiting Genitourinary Genitourinary: Denies dysuria or polyuria Musculoskeletal Musculoskeletal: Denies arthralgias, joint stiffness or muscle weakness Integumentary Integumentary: Reports erythema and wounds Neurologic Neurologic: Denies dizziness, memory loss or weakness Psychiatric Psychiatric: Denies homicidal ideation or suicidal ideation Endocrine Endocrinology: Denies polydipsia, polyphagia or polyuria Hematologic/Lymphatic Hematologic/Lymphatic: Denies easy bleeding or easy bruising Allergic/Immunologic Allergic/Immunologic: Denies throat swelling, tongue swelling or urticaria Vital Signs Vital Signs Vital Signs: 12/29/24 09:53 Temperature 96.9 F L Temperature Source Temporal Pulse Rate 98 Respiratory Rate 16 Blood Pressure 188/102 H Blood Pressure Mean 130 Blood Pressure Source Monitor Blood Pressure Position Sitting Blood Pressure Location Right Arm Oxygen Delivery Method Room Air Physical Exam Const alert, oriented x3 and no apparent distress General Appearance: cooperative and comfortable Nutritional Appearance: obese HEENT normocephalic and head/scalp atraumatic Resp normal respiratory effort Effort and Inspection: able to speak in complete sentences Cardio regular rate and regular rhythm Extremity General Extremity: edema bilateral lower extremity Details: trace Skin Wounds: wounds noted Wound Narrative: as in clinical panel, no surrounding erythema or cellulitis, slight odor, minimal slough Psych mental status grossly normal, thought process normal, cooperative and affect normal Debridement Note Debridement Note Wound debrided: left arch of foot plantar Laterality: Left Wound Grade/Stage: Delgado Grade 1 Type of Debridement: Excisional debridement Anesthesia Used: 5% Lidocaine Gel Depth: Down to and including healthy tissue and in the subcutaneous layer Percentage of wound debrided: 100 Instrument Used: #15 blade and Forceps Tissue Removed: Yellow slough, devitalized tissue Severity: Fat Layer Exposed Amount of bleeding with debridement: Mild Bleeding Controlled with: Compression and gauze Patient tolerated procedure: Patient tolerated procedure well Post-Debridement Measurements and Additional Note: Post-Debridement Measurements/Treatment DESMOND - Nurse 1 - General Ulcer Assessment Start: 12/29/24 09:53 Freq: Status: Active Protocol: MART Activity Type Activity Date Activity User E-sign Co-sign Detail Recorded Client Recorded Date Recorded By Document 12/29/24 09:53 KW [id number] 12/29/24 10:04 12/29/24 09:53 WC - Today's Visit Information Type of service Initial Visit Arrival Mode Ambulatory Patient Identification Verified (Name & Yes ) Vital Signs Temperature (97.8 F-99.1 F) 96.9 F L Temperature Source Temporal Pulse Rate (60-100) 98 Pulse Location Monitor Respiratory Rate (12-18) 16 Respiratory rate source Observation Oxygen Delivery Method Room Air Blood Pressure (90/60-120/80) 188/102 H Blood Pressure Mean 130 Source Monitor Position Sitting Blood Pressure Location Right Arm History Since Last Visit- (Skip if this is Patient's initial visit) Left Footwear Regular Shoe Right Footwear Regular Shoe Pain Scale: 0-10 Numeric Is Patient Pain Free? Yes - Nurse 1 - General Ulcer Measurement Start: 12/29/24 09:53 Freq: Status: Active Protocol: Activity Type Activity Date Activity User E-sign Co-sign Detail Recorded Client Recorded Date Recorded By Document 12/29/24 09:53 [email or web address] [id number] 12/29/24 10:04 12/29/24 09:53 Wound Center Nurse 1 #13 LT MED FOOT -Current Size (cm) - Length 4.3 -Current Size (cm) - Width 4 -Current Size (cm) - Depth 0.2 -Total Square Cm 17.2 -Date of Last Picture (Recall this 12/29/24 field) -Exudate Amt Medium -Exudate Type Serosanguineous -Wound Margin Distinct, Outline Attached -Granulation Amt Large (67-100%) -Granulation Quality Young -Necrosis Amt Small (1-33%) -Necrotic Tissue Type Adherent Slough -Texture (Milly-wound Skin Appearance) Assessed,Callus -Moisture (Milly-wound Skin Appearance) Assessed, Maceration -Color (Milly-wound Skin Appearance) Assessed -Temperature (Milly-wound Skin No Abnormality Appearance) (Pt Warm) -Tenderness on Palpation (Milly-wound No Skin Appearance) -Ulcer Cleansing Rinsed/ Irrigated with Saline -Foul Odor after Cleansing Yes -Anesthetic Used 5% Lidocaine Gel WC - Nurse 2 - General Ulcer CM Notes Start: 12/29/24 09:53 Freq: Status: Active Protocol: Activity Type Activity Date Activity User E-sign Co-sign Detail Recorded Client Recorded Date Recorded By Document 12/29/24 10:29 [id number] 12/29/24 10:49 GM 12/29/24 10:29 Wound Center Nurse 2 -Time 10:37 -Correct Patient Yes -Correct Side, Site, Position Yes -Correct Procedure Yes -Procedure Performed Yes -Type of Procedure Debridement -Clinical Debridement Subcutaneous -Post Debridement (cm) - Length 4.0 -Post Debridement (cm) - Width 4.0 -Post Debridement (cm) - Depth 0.1 -Total Square (Post) (cm) 16.00 -Area of Debridement (cm) - Length 4.0 -Area of Debridement (cm) - Width 4.0 -Total Square (Area) (cm) 16.00 -Tunneling No -Undermining/Tunneling No -Circular Undermining No -Wound/Ulcer Outcome Not Healed -Ulcer Cleansing Rinsed/ Irrigated with Saline -Foul Odor after Cleansing No -Bioengineered Tissue No -Bleeding Controlled with Pressure -Treatment Response Procedure Tolerated Well -Debridement - Subq, 1st 20sq cm Yes Pain Scale: 0-10 Numeric Is Patient Pain Free? Yes Assessment/Plan Assessment/Plan (1) Uncontrolled diabetes mellitus: QUALIFIERS: Diabetes mellitus type: type 2 Glycemic state: with hyperglycemia Qualified Code(s): E11.65 - Type 2 diabetes mellitus with hyperglycemia (2) Ulcer of heel due to diabetes: CODE(S): E11.621 - Type 2 diabetes mellitus with foot ulcer; L97.409 - Non-pressure chronic ulcer of unspecified heel and midfoot with unspecified severity QUALIFIERS: Diabetes mellitus type: type 2 Laterality: left Non- pressure ulcer stage: with fat layer exposed Qualified Code(s): E11.621 - Type 2 diabetes mellitus with foot ulcer; L97.422 - Non-pressure chronic ulcer of left heel and midfoot with fat layer exposed (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: CODE(S): E11.49 - Type 2 diabetes mellitus with other diabetic neurological complication (4) Insulin dependent diabetes mellitus: (5) HTN (hypertension): CODE(S): I10 - Essential (primary) hypertension QUALIFIERS: Hypertension type: primary hypertension Qualified Code(s): I10 - Essential (primary) hypertension (6) Hyperlipidemia: CODE(S): E78.5 - Hyperlipidemia, unspecified QUALIFIERS: Hyperlipidemia type: unspecified Qualified Code(s): E78.5 - Hyperlipidemia, unspecified (7) PVD (peripheral vascular disease): CODE(S): I73.9 - Peripheral vascular disease, unspecified (8) PAD (peripheral artery disease): CODE(S): I73.9 - Peripheral vascular disease, unspecified (9) Venous insufficiency of both lower extremities: CODE(S): I87.2 - Venous insufficiency (chronic) (peripheral) (10) Ulcer of left foot with fat layer exposed: CODE(S): L97.522 - Non-pressure chronic ulcer of other part of left foot with fat layer exposed (11) Diabetic foot ulcer associated with type 2 diabetes mellitus, with fat layer exposed: CODE(S): E11.621 - Type 2 diabetes mellitus with foot ulcer; L97.502 - Non-pressure chronic ulcer of other part of unspecified foot with fat layer exposed QUALIFIERS: Diabetic foot ulcer location: midfoot Laterality: left Qualified Code(s): E11.621 - Type 2 diabetes mellitus with foot ulcer; L97.422 - Non-pressure chronic ulcer of left heel and midfoot with fat layer exposed PLAN: Plan Debridement performed today in clinic as annotated above. At home wound-care instructions: The patient will wash with antibacterial soap and water and then will apply Aquacel Ag to the wound bed and cover with ABD and roll gauze changed daily. Keep dressing clean and dry. Off-loading: The patient was instructed to avoid pressure and friction on the affected areas. Reposition every 2 hours at minimum. Avoid prolonged standing and/or dangling of legs. When seated, feet should be elevated at chest level. Frequent ambulation is encouraged. Diet: Patient encouraged to increase protein intake while taking caution to avoid high carbohydrate and/or sugar intake. Labs/cultures/imaging: Culture taken today and he was started on Ciprofloxacin while awaiting culture results. Follow-up: Return in 1 week for wound care follow up. Return sooner or report to the emergency room should symptoms worsen, or new symptoms arise. Note: [employer] speech recognition facsimile machine operator software was used to create portions of this document. Sound-alike and misspelled words, as well as other facsimile machine operator errors may be contained in the documentation.
--- NOTE | 2025-01-02 09:06 | WC ---
PHOTO 12/29/24 LEFT [facility] FOOT
[2025-01-05 10:18] VITALS: BP 167/84; PULSE 73; RESP 16; TEMP 36.2
--- NOTE | 2025-01-08 16:20 | NURSING ---
PHOTO 01/05/25 Left Mid Foot
[2025-01-12 10:32] VITALS: BP 177/81; PULSE 71; RESP 18; TEMP 35.6
--- NOTE | 2025-01-12 15:26 | PCM.WC.PN ---
History of Present Illness Date of Service: 01/12/25 Chief Complaint: Left arch plantar ulcer History of Wound: David is a 54 year old male that presents to the wound center for evaluation and treatment of an ulcer of his left foot. The ulcer appeared approximately a month ago. He took his shoe off after work and his sock was bloody and soaked with drainage and there was a blister that had broke open. He has been applying gauze and washing with soap daily to treat the ulcer but it has not improved. He has not been on any antibiotics recently. He denies systemic symptoms such as fever, chills, erythema, odor. 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 His last A1C was 10/2024 and was 13.6 %. He is a very poorly controlled diabetic on insulin. He does not have diabetic shoes. He does see Dr. Ozuna for podiatry for diabetic foot exams. 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 He also had repeat venous testing 04/08/23 which showed incompetence and vascular surgery was considered but was not done at that time. He has not been able to place compression because he is unable to bend to pull on compression stockings due to arthritis in his back. He is not able to wrap with RADHA bandages either. Circaids were tried previously but he was unable to do this as well. He has been wearing tubigrips for compression. He states he still has issues getting them on at times when his back is flared up. He has chronic lymphedema. Subjective Subjective Kian returns today for treatment of ulcer of his plantar left foot arch. He is tolerating treatment with Aquacel Ag well. He has completed Ciprofloxacin but he was not able to afford Cefdinir. There has been significant improvement of his ulcer even without the antibiotic. He denies increased, pain, odor or drainage. Objective Data Objective Data Vital Signs: Vital Signs Temp Pulse Resp BP O2 Del Method 96.1 F L 71 18 177/81 H Room Air 01/12/25 10:32 01/12/25 10:32 01/12/25 10:32 01/12/25 10:32 01/12/25 10:32 Oxygen Delivery Method Room Air Lab / Micro Data Micro: Microbiology 12/29/24 10:48 Wound - Left Foot Gram Stain - Final 12/29/24 10:48 Wound - Left Foot Wound Culture - Final Klebsiella pneumoniae sp pneum Staphylococcus aureus Streptococcus agalactiae (B) 12/29/24 10:48 Wound - Left Foot Anaerobic Culture - Final No anaerobic bacteria isolated. Social Homelessness:: Sheltered Physical Exam Const alert, oriented x3 and no apparent distress General Appearance: cooperative and comfortable Nutritional Appearance: obese HEENT normocephalic and head/scalp atraumatic Resp normal respiratory effort Effort and Inspection: able to speak in complete sentences Cardio regular rate and regular rhythm Extremity General Extremity: edema bilateral lower extremity Details: trace Skin Wounds: wounds noted Wound Narrative: as in clinical panel, no surrounding erythema or cellulitis, no odor, minimal slough Psych mental status grossly normal, thought process normal, cooperative and affect normal Debridement Note Debridement Note Wound debrided: left arch of foot plantar Laterality: Left Wound Grade/Stage: Delgado Grade 1 Type of Debridement: Excisional debridement Anesthesia Used: 5% Lidocaine Gel Depth: Down to and including healthy tissue and in the subcutaneous layer Percentage of wound debrided: 100 Instrument Used: #15 blade and Forceps Tissue Removed: Yellow slough, devitalized tissue Severity: Fat Layer Exposed Amount of bleeding with debridement: Mild Bleeding Controlled with: Compression and gauze Patient tolerated procedure: Patient tolerated procedure well Post-Debridement Measurements and Additional Note: Post-Debridement Measurements/Treatment - Nurse 1 - General Ulcer Assessment Start: 12/29/24 09:53 Freq: Status: Active Protocol: [email or web address] Activity Type Activity Date Activity User E-sign Co-sign Detail Recorded Client Recorded Date Recorded By Document 12/29/24 09:53 KW [id number] 12/29/24 10:04 KW Document 01/05/25 10:18 KW [id number] 01/05/25 10:22 KW Document 01/12/25 10:32 KW [id number] 01/12/25 10:37 KW 12/29/24 01/05/25 01/12/25 09:53 10:18 10:32 - Today's Visit Information Type of service Initial Visit Follow-up Visit Follow-up Visit (Physician/SALES ORDER SPECIALIST (Physician/SALES ORDER SPECIALIST ) ) Arrival Mode Ambulatory Ambulatory Ambulatory Patient Identification Verified (Name & Yes Yes Yes ) Vital Signs Temperature (97.8 F-99.1 F) 96.9 F L 97.2 F L 96.1 F L Temperature Source Temporal Temporal Temporal Pulse Rate (60-100) 98 73 71 Pulse Location Monitor Monitor Monitor Respiratory Rate (12-18) 16 16 18 Respiratory rate source Observation Observation Observation Oxygen Delivery Method Room Air Room Air Room Air Blood Pressure (90/60-120/80) 188/102 H 167/84 H 177/81 H Blood Pressure Mean (mm Hg) 130 111 113 Source Monitor Monitor Monitor Position Sitting Semi-Fowlers Semi-Fowlers Blood Pressure Location Right Arm Left Arm Left Arm History Since Last Visit- (Skip if this is Patient's initial visit) Have you changed medications since your No No last visit? Any new allergies or adverse reactions No No Had a fall/change in ADL's that may No No increase risk of falls Signs or symptoms of abuse and/or No No neglect since last visit Have you been in the hospital since your No No last visit? Has dressing in place as prescribed Yes Yes Has compression in place as prescribed Yes N/A Has offloadiing in place as prescribed N/A N/A Experienced any changes in pain level or No No management Left Footwear Regular Shoe Regular Shoe Regular Shoe Right Footwear Regular Shoe Regular Shoe Regular Shoe Pain Scale: 0-10 Numeric Is Patient Pain Free? Yes Yes Yes WC - Nurse 1 - General Ulcer Measurement Start: 12/29/24 09:53 Freq: Status: Active Protocol: Activity Type Activity Date Activity User E-sign Co-sign Detail Recorded Client Recorded Date Recorded By Document 12/29/24 09:53 KW [id number] 12/29/24 10:04 KW Document 01/05/25 10:18 KW [id number] 01/05/25 10:22 KW Document 01/12/25 10:32 KW [id number] 01/12/25 10:37 KW 12/29/24 01/05/25 01/12/25 09:53 10:18 10:32 Wound Center Nurse 1 #13 LT MED FOOT -Current Size (cm) - Length 4.3 3 2 -Current Size (cm) - Width 4 3.7 1.7 -Current Size (cm) - Depth 0.2 0.1 0.1 -Total Square Cm 17.2 11.1 3.4 -Date of Last Picture (Recall this 12/29/24 01/05/25 field) -Exudate Amt Medium Small Small -Exudate Type Serosanguineous Serosanguineous Serosanguineous -Wound Margin Distinct, Distinct, Distinct, Outline Outline Outline Attached Attached Attached -Granulation Amt Large (67-100%) Large (67-100%) Large (67-100%) -Granulation Quality [place],Red [place] -Necrosis Amt Small (1-33%) Small (1-33%) -Necrotic Tissue Type Adherent Slough Adherent Slough -Texture (Milly-wound Skin Appearance) Assessed,Callus Assessed,Callus Assessed,Callus -Moisture (Milly-wound Skin Appearance) Assessed, Assessed,Dry/ Assessed,Dry/ Maceration Scaly Scaly -Color (Milly-wound Skin Appearance) Assessed Assessed Assessed -Temperature (Milly-wound Skin No Abnormality No Abnormality No Abnormality Appearance) (Pt Warm) (Pt Warm) (Pt Warm) -Tenderness on Palpation (Milly-wound No No No Skin Appearance) -Ulcer Cleansing Rinsed/ Rinsed/ Rinsed/ Irrigated with Irrigated with Irrigated with Saline Saline Saline -Foul Odor after Cleansing Yes No -Anesthetic Used 5% Lidocaine 5% Lidocaine 5% Lidocaine Gel Gel Gel Left Calf (cm) 39 Left Ankle (cm) 22 WC - Nurse 2 - General Ulcer CM Notes Start: 12/29/24 09:53 Freq: Status: Active Protocol: Activity Type Activity Date Activity User E-sign Co-sign Detail Recorded Client Recorded Date Recorded By Document 12/29/24 10:29 [id number] 12/29/24 10:49 Document 01/05/25 11:22 [id number] 01/05/25 11:48 Document 01/12/25 10:46 [id number] 01/12/25 11:19 12/29/24 01/05/25 01/12/25 10:29 11:22 10:46 Wound Center Nurse 2 #14 RIGHT SHARP -Time 10:50 -Correct Patient Yes -Correct Side, Site, Position Yes -Correct Procedure Yes -Procedure Performed Yes -Type of Procedure Debridement -Clinical Debridement Subcutaneous -Tissue Removed Subcutaneous -Post Debridement (cm) - Length 2.5 -Post Debridement (cm) - Width 1.0 -Post Debridement (cm) - Depth 0.1 -Total Square (Post) (cm) 2.50 -Area of Debridement (cm) - Length 2.5 -Area of Debridement (cm) - Width 1.0 -Total Square (Area) (cm) 2.50 -Tunneling No -Undermining/Tunneling No -Circular Undermining No -Wound/Ulcer Outcome Not Healed -Ulcer Cleansing Rinsed/ Irrigated with Saline -Foul Odor after Cleansing No -Bioengineered Tissue No -Bleeding Controlled with Pressure -Treatment Response Procedure Tolerated Well -Offloading No -Debridement - Subq, 1st 20sq cm No #13 LT MED FOOT -Time 10:37 11:26 10:47 -Correct Patient Yes Yes Yes -Correct Side, Site, Position Yes Yes Yes -Correct Procedure Yes Yes Yes -Procedure Performed Yes Yes Yes -Type of Procedure Debridement Debridement Debridement -Clinical Debridement Subcutaneous Subcutaneous Subcutaneous -Tissue Removed Subcutaneous Subcutaneous -Post Debridement (cm) - Length 4.0 3.8 2.5 -Post Debridement (cm) - Width 4.0 3.8 4.5 -Post Debridement (cm) - Depth 0.1 0.2 0.1 -Total Square (Post) (cm) 16.00 14.44 11.25 -Area of Debridement (cm) - Length 4.0 3.8 2.5 -Area of Debridement (cm) - Width 4.0 3.8 4.5 -Total Square (Area) (cm) 16.00 14.44 11.25 -Tunneling No No No -Undermining/Tunneling No No No -Circular Undermining No No No -Wound/Ulcer Outcome Not Healed Not Healed Not Healed -Ulcer Cleansing Rinsed/ Rinsed/ Rinsed/ Irrigated with Irrigated with Irrigated with Saline Saline Saline -Foul Odor after Cleansing No No No -Bioengineered Tissue No No No -Bleeding Controlled with Pressure Pressure -Treatment Response Procedure Procedure Tolerated Well Tolerated Well -Debridement - Subq, 1st 20sq cm Yes Yes Yes Pain Scale: 0-10 Numeric Is Patient Pain Free? Yes Yes Yes - Nurse 3 - General Ulcer D/C NN Start: 12/29/24 09:53 Freq: Status: Active Protocol: Activity Type Activity Date Activity User E-sign Co-sign Detail Recorded Client Recorded Date Recorded By Document 12/29/24 11:04 RB [id number] 12/29/24 11:05 RB Document 01/05/25 11:54 KW [id number] 01/05/25 11:55 KW Document 01/12/25 11:24 KW [id number] 01/12/25 11:26 KW 12/29/24 01/05/25 01/12/25 11:04 11:54 11:24 Wound Care Center Nurse 3 #13 LT MED FOOT -Ulcer Cleansing Rinsed/ Irrigated with Saline -Primary Dressing Applied Aquacel AG 4x4 Aquacel AG 4x4 -Other Dressing abd -Primary Dressing Covered/Secured with Dry Gauze,Dry Dry Gauze & Gauze & Roll Roll Gauze, Gauze,Secured Secured with with Tape Tape -Aquacel AG 4x4 1 1 Treatment Response Procedure Tolerated Well Pain Scale: 0-10 Numeric Is Patient Pain Free? Yes Yes Yes Teaching: Wound Center Dressing Your Wound -Person Taught Patient -Teaching Method Discussion, Demonstration -Response to teaching Verbalize Understanding WC - Visit Discharge Discharge Condition Stable Stable Stable Ambulatory Status Ambulatory Ambulatory Ambulatory Transportation Private Auto Private Auto Private Auto Medication Reconcilliation completed & No No No provided to patient/care provider Clinical Summary of Care Provided Yes Yes Yes #14 RIGHT SHARP -Primary Dressing Applied Promogran [place] Matter -Primary Dressing Covered/Secured with Dry Gauze & Roll Gauze, Secured with Tape -Promogran [place] Matter 1 #13 LT MED FOOT -Primary Dressing Applied Aquacel AG 4x4, Promogran [place] Matter -Primary Dressing Covered/Secured with Dry Gauze & Roll Gauze, Secured with Tape -Aquacel AG 4x4 1 -Promogran [place] Matter 1 Assessment/Plan Assessment/Plan (1) Uncontrolled diabetes mellitus: QUALIFIERS: Diabetes mellitus type: type 2 Glycemic state: with hyperglycemia Qualified Code(s): E11.65 - Type 2 diabetes mellitus with hyperglycemia (2) Ulcer of heel due to diabetes: CODE(S): E11.621 - Type 2 diabetes mellitus with foot ulcer; L97.409 - Non-pressure chronic ulcer of unspecified heel and midfoot with unspecified severity QUALIFIERS: Diabetes mellitus type: type 2 Laterality: left Non-pressure ulcer stage: with fat layer exposed Qualified Code(s): E11.621 - Type 2 diabetes mellitus with foot ulcer; L97.422 - Non-pressure chronic ulcer of left heel and midfoot with fat layer exposed (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: CODE(S): E11.49 - Type 2 diabetes mellitus with other diabetic neurological complication (4) Insulin dependent diabetes mellitus: (5) HTN (hypertension): CODE(S): I10 - Essential (primary) hypertension QUALIFIERS: Hypertension type: primary hypertension Qualified Code(s): I10 - Essential (primary) hypertension (6) Hyperlipidemia: CODE(S): E78.5 - Hyperlipidemia, unspecified QUALIFIERS: Hyperlipidemia type: unspecified Qualified Code(s): E78.5 - Hyperlipidemia, unspecified (7) PVD (peripheral vascular disease): CODE(S): I73.9 - Peripheral vascular disease, unspecified (8) PAD (peripheral artery disease): CODE(S): I73.9 - Peripheral vascular disease, unspecified (9) Venous insufficiency of both lower extremities: CODE(S): I87.2 - Venous insufficiency (chronic) (peripheral) (10) Ulcer of left foot with fat layer exposed: CODE(S): L97.522 - Non-pressure chronic ulcer of other part of left foot with fat layer exposed (11) Diabetic foot ulcer associated with type 2 diabetes mellitus, with fat layer exposed: CODE(S): E11.621 - Type 2 diabetes mellitus with foot ulcer; L97.502 - Non-pressure chronic ulcer of other part of unspecified foot with fat layer exposed QUALIFIERS: Diabetic foot ulcer location: midfoot Laterality: left Qualified Code(s): E11.621 - Type 2 diabetes mellitus with foot ulcer; L97.422 - Non-pressure chronic ulcer of left heel and midfoot with fat layer exposed PLAN: Plan Debridement performed today in clinic as annotated above. At home wound-care instructions: The patient will continue to wash with antibacterial soap and water and then will apply Aquacel Ag to the wound bed and cover with ABD and roll gauze changed daily. Keep dressing clean and dry. Off-loading: The patient was instructed to avoid pressure and friction on the affected areas. Reposition every 2 hours at minimum. Avoid prolonged standing and/or dangling of legs. When seated, feet should be elevated at chest level. Frequent ambulation is encouraged. Diet: Patient encouraged to increase protein intake while taking caution to avoid high carbohydrate and/or sugar intake. Labs/cultures/imaging: Culture taken today and he was started on Ciprofloxacin while awaiting culture results. Follow-up: Return in 1 week for wound care follow up. Return sooner or report to the emergency room should symptoms worsen, or new symptoms arise. Note: [employer] speech recognition cans vacuum tester software was used to create portions of this document. Sound-alike and misspelled words, as well as other cans vacuum tester errors may be contained in the documentation.
--- NOTE | 2025-01-12 21:18 | PCM.WC.PN ---
History of Present Illness Date of Service: 01/05/25 Chief Complaint: Left arch plantar ulcer History of Wound: David is a 54 year old male that presents to the wound center for evaluation and treatment of an ulcer of his left foot. The ulcer appeared approximately a month ago. He took his shoe off after work and his sock was bloody and soaked with drainage and there was a blister that had broke open. He has been applying gauze and washing with soap daily to treat the ulcer but it has not improved. He has not been on any antibiotics recently. He denies systemic symptoms such as fever, chills, erythema, odor. 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 His last A1C was 10/2024 and was 13.6 %. He is a very poorly controlled diabetic on insulin. He does not have diabetic shoes. He does see Dr. Ozuna for podiatry for diabetic foot exams. 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 He also had repeat venous testing 04/08/23 which showed incompetence and vascular surgery was considered but was not done at that time. He has not been able to place compression because he is unable to bend to pull on compression stockings due to arthritis in his back. He is not able to wrap with RADHA bandages either. Circaids were tried previously but he was unable to do this as well. He has been wearing tubigrips for compression. He states he still has issues getting them on at times when his back is flared up. He has chronic lymphedema. Subjective Subjective Kian returns today for treatment of ulcer of his plantar left foot arch. He is tolerating treatment with Aquacel Ag well. His culture results were reviewed with him today. There has been significant improvement of his ulcer. He denies increased, pain, odor or drainage. Objective Data Objective Data Vital Signs: Vital Signs Temp Pulse Resp BP O2 Del Method 96.1 F L 71 18 177/81 H Room Air 01/12/25 10:32 01/12/25 10:32 01/12/25 10:32 01/12/25 10:32 01/12/25 10:32 Oxygen Delivery Method Room Air Lab / Micro Data Micro: Microbiology 12/29/24 10:48 Wound - Left Foot Gram Stain - Final 12/29/24 10:48 Wound - Left Foot Wound Culture - Final Klebsiella pneumoniae sp pneum Staphylococcus aureus Streptococcus agalactiae (B) 12/29/24 10:48 Wound - Left Foot Anaerobic Culture - Final No anaerobic bacteria isolated. Social Homelessness:: Sheltered Physical Exam Const alert, oriented x3 and no apparent distress General Appearance: cooperative and comfortable Nutritional Appearance: obese HEENT normocephalic and head/scalp atraumatic Resp normal respiratory effort Effort and Inspection: able to speak in complete sentences Cardio regular rate and regular rhythm Extremity General Extremity: edema bilateral lower extremity Details: trace Skin Wounds: wounds noted Wound Narrative: as in clinical panel, no surrounding erythema or cellulitis, no odor, minimal slough Psych mental status grossly normal, thought process normal, cooperative and affect normal Debridement Note Debridement Note Wound debrided: left arch of foot plantar Laterality: Left Wound Grade/Stage: Delgado Grade 1 Type of Debridement: Excisional debridement Anesthesia Used: 5% Lidocaine Gel Depth: Down to and including healthy tissue and in the subcutaneous layer Percentage of wound debrided: 100 Instrument Used: #15 blade and Forceps Tissue Removed: Yellow slough, devitalized tissue Severity: Fat Layer Exposed Amount of bleeding with debridement: Mild Bleeding Controlled with: Compression and gauze Patient tolerated procedure: Patient tolerated procedure well Post-Debridement Measurements and Additional Note: Post-Debridement Measurements/Treatment - Nurse 1 - General Ulcer Assessment Start: 12/29/24 09:53 Freq: Status: Active Protocol: DESMOND.KRISTA Activity Type Activity Date Activity User E-sign Co-sign Detail Recorded Client Recorded Date Recorded By Document 12/29/24 09:53 KW [id number] 12/29/24 10:04 KW Document 01/05/25 10:18 KW [id number] 01/05/25 10:22 KW Document 01/12/25 10:32 KW [id number] 01/12/25 10:37 KW 12/29/24 01/05/25 01/12/25 09:53 10:18 10:32 - Today's Visit Information Type of service Initial Visit Follow-up Visit Follow-up Visit (Physician/COMPRESSOR ASSEMBLER (Physician/COMPRESSOR ASSEMBLER ) ) Arrival Mode Ambulatory Ambulatory Ambulatory Patient Identification Verified (Name & Yes Yes Yes ) Vital Signs Temperature (97.8 F-99.1 F) 96.9 F L 97.2 F L 96.1 F L Temperature Source Temporal Temporal Temporal Pulse Rate (60-100) 98 73 71 Pulse Location Monitor Monitor Monitor Respiratory Rate (12-18) 16 16 18 Respiratory rate source Observation Observation Observation Oxygen Delivery Method Room Air Room Air Room Air Blood Pressure (90/60-120/80) 188/102 H 167/84 H 177/81 H Blood Pressure Mean (mm Hg) 130 111 113 Source Monitor Monitor Monitor Position Sitting Semi-Fowlers Semi-Fowlers Blood Pressure Location Right Arm Left Arm Left Arm History Since Last Visit- (Skip if this is Patient's initial visit) Have you changed medications since your No No last visit? Any new allergies or adverse reactions No No Had a fall/change in ADL's that may No No increase risk of falls Signs or symptoms of abuse and/or No No neglect since last visit Have you been in the hospital since your No No last visit? Has dressing in place as prescribed Yes Yes Has compression in place as prescribed Yes N/A Has offloadiing in place as prescribed N/A N/A Experienced any changes in pain level or No No management Left Footwear Regular Shoe Regular Shoe Regular Shoe Right Footwear Regular Shoe Regular Shoe Regular Shoe Pain Scale: 0-10 Numeric Is Patient Pain Free? Yes Yes Yes WC - Nurse 1 - General Ulcer Measurement Start: 12/29/24 09:53 Freq: Status: Active Protocol: Activity Type Activity Date Activity User E-sign Co-sign Detail Recorded Client Recorded Date Recorded By Document 12/29/24 09:53 KW [id number] 12/29/24 10:04 KW Document 01/05/25 10:18 KW [id number] 01/05/25 10:22 KW Document 01/12/25 10:32 KW [id number] 01/12/25 10:37 KW 12/29/24 01/05/25 01/12/25 09:53 10:18 10:32 Wound Center Nurse 1 #13 LT MED FOOT -Current Size (cm) - Length 4.3 3 2 -Current Size (cm) - Width 4 3.7 1.7 -Current Size (cm) - Depth 0.2 0.1 0.1 -Total Square Cm 17.2 11.1 3.4 -Date of Last Picture (Recall this 02/07/25 02/14/25 field) -Exudate Amt Medium Small Small -Exudate Type Serosanguineous Serosanguineous Serosanguineous -Wound Margin Distinct, Distinct, Distinct, Outline Outline Outline Attached Attached Attached -Granulation Amt Large (67-100%) Large (67-100%) Large (67-100%) -Granulation Quality [place] -Necrosis Amt Small (1-33%) Small (1-33%) -Necrotic Tissue Type Adherent Slough Adherent Slough -Texture (Milly-wound Skin Appearance) Assessed,Callus Assessed,Callus Assessed,Callus -Moisture (Milly-wound Skin Appearance) Assessed, Assessed,Dry/ Assessed,Dry/ Maceration Scaly Scaly -Color (Milly-wound Skin Appearance) Assessed Assessed Assessed -Temperature (Milly-wound Skin No Abnormality No Abnormality No Abnormality Appearance) (Pt Warm) (Pt Warm) (Pt Warm) -Tenderness on Palpation (Milly-wound No No No Skin Appearance) -Ulcer Cleansing Rinsed/ Rinsed/ Rinsed/ Irrigated with Irrigated with Irrigated with Saline Saline Saline -Foul Odor after Cleansing Yes No -Anesthetic Used 5% Lidocaine 5% Lidocaine 5% Lidocaine Gel Gel Gel Left Calf (cm) 39 Left Ankle (cm) 22 WC - Nurse 2 - General Ulcer CM Notes Start: 12/29/24 09:53 Freq: Status: Active Protocol: Activity Type Activity Date Activity User E-sign Co-sign Detail Recorded Client Recorded Date Recorded By Document 12/29/24 10:29 [id number] 12/29/24 10:49 Document 01/05/25 11:22 [id number] 01/05/25 11:48 Document 01/12/25 10:46 [id number] 01/12/25 11:19 12/29/24 01/05/25 01/12/25 10:29 11:22 10:46 Wound Center Nurse 2 #14 RIGHT SHARP -Time 10:50 -Correct Patient Yes -Correct Side, Site, Position Yes -Correct Procedure Yes -Procedure Performed Yes -Type of Procedure Debridement -Clinical Debridement Subcutaneous -Tissue Removed Subcutaneous -Post Debridement (cm) - Length 2.5 -Post Debridement (cm) - Width 1.0 -Post Debridement (cm) - Depth 0.1 -Total Square (Post) (cm) 2.50 -Area of Debridement (cm) - Length 2.5 -Area of Debridement (cm) - Width 1.0 -Total Square (Area) (cm) 2.50 -Tunneling No -Undermining/Tunneling No -Circular Undermining No -Wound/Ulcer Outcome Not Healed -Ulcer Cleansing Rinsed/ Irrigated with Saline -Foul Odor after Cleansing No -Bioengineered Tissue No -Bleeding Controlled with Pressure -Treatment Response Procedure Tolerated Well -Offloading No -Debridement - Subq, 1st 20sq cm No #13 LT MED FOOT -Time 10:37 11:26 10:47 -Correct Patient Yes Yes Yes -Correct Side, Site, Position Yes Yes Yes -Correct Procedure Yes Yes Yes -Procedure Performed Yes Yes Yes -Type of Procedure Debridement Debridement Debridement -Clinical Debridement Subcutaneous Subcutaneous Subcutaneous -Tissue Removed Subcutaneous Subcutaneous -Post Debridement (cm) - Length 4.0 3.8 2.5 -Post Debridement (cm) - Width 4.0 3.8 4.5 -Post Debridement (cm) - Depth 0.1 0.2 0.1 -Total Square (Post) (cm) 16.00 14.44 11.25 -Area of Debridement (cm) - Length 4.0 3.8 2.5 -Area of Debridement (cm) - Width 4.0 3.8 4.5 -Total Square (Area) (cm) 16.00 14.44 11.25 -Tunneling No No No -Undermining/Tunneling No No No -Circular Undermining No No No -Wound/Ulcer Outcome Not Healed Not Healed Not Healed -Ulcer Cleansing Rinsed/ Rinsed/ Rinsed/ Irrigated with Irrigated with Irrigated with Saline Saline Saline -Foul Odor after Cleansing No No No -Bioengineered Tissue No No No -Bleeding Controlled with Pressure Pressure -Treatment Response Procedure Procedure Tolerated Well Tolerated Well -Debridement - Subq, 1st 20sq cm Yes Yes Yes Pain Scale: 0-10 Numeric Is Patient Pain Free? Yes Yes Yes WC - Nurse 3 - General Ulcer D/C NN Start: 12/29/24 09:53 Freq: Status: Active Protocol: Activity Type Activity Date Activity User E-sign Co-sign Detail Recorded Client Recorded Date Recorded By Document 12/29/24 11:04 RB [id number] 12/29/24 11:05 RB Document 01/05/25 11:54 KW [id number] 01/05/25 11:55 KW Document 01/12/25 11:24 KW [id number] 01/12/25 11:26 KW 12/29/24 01/05/25 01/12/25 11:04 11:54 11:24 Wound Care Center Nurse 3 #13 LT MED FOOT -Ulcer Cleansing Rinsed/ Irrigated with Saline -Primary Dressing Applied Aquacel AG 4x4 Aquacel AG 4x4 -Other Dressing abd -Primary Dressing Covered/Secured with Dry Gauze,Dry Dry Gauze & Gauze & Roll Roll Gauze, Gauze,Secured Secured with with Tape Tape -Aquacel AG 4x4 1 1 Treatment Response Procedure Tolerated Well Pain Scale: 0-10 Numeric Is Patient Pain Free? Yes Yes Yes Teaching: Wound Center Dressing Your Wound -Person Taught Patient -Teaching Method Discussion, Demonstration -Response to teaching Verbalize Understanding WC - Visit Discharge Discharge Condition Stable Stable Stable Ambulatory Status Ambulatory Ambulatory Ambulatory Transportation Private Auto Private Auto Private Auto Medication Reconcilliation completed & No No No provided to patient/care provider Clinical Summary of Care Provided Yes Yes Yes #14 RIGHT SHARP -Primary Dressing Applied Promogran [place] Matter -Primary Dressing Covered/Secured with Dry Gauze & Roll Gauze, Secured with Tape -Promogran [place] Matter 1 #13 LT MED FOOT -Primary Dressing Applied Aquacel AG 4x4, Promogran [place] Matter -Primary Dressing Covered/Secured with Dry Gauze & Roll Gauze, Secured with Tape -Aquacel AG 4x4 1 -Promogran [place] Matter 1 Assessment/Plan Assessment/Plan (1) Uncontrolled diabetes mellitus: QUALIFIERS: Diabetes mellitus type: type 2 Glycemic state: with hyperglycemia Qualified Code(s): E11.65 - Type 2 diabetes mellitus with hyperglycemia (2) Ulcer of heel due to diabetes: CODE(S): E11.621 - Type 2 diabetes mellitus with foot ulcer; L97.409 - Non-pressure chronic ulcer of unspecified heel and midfoot with unspecified severity QUALIFIERS: Diabetes mellitus type: type 2 Laterality: left Non-pressure ulcer stage: with fat layer exposed Qualified Code(s): E11.621 - Type 2 diabetes mellitus with foot ulcer; L97.422 - Non-pressure chronic ulcer of left heel and midfoot with fat layer exposed (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: CODE(S): E11.49 - Type 2 diabetes mellitus with other diabetic neurological complication (4) Insulin dependent diabetes mellitus: (5) HTN (hypertension): CODE(S): I10 - Essential (primary) hypertension QUALIFIERS: Hypertension type: primary hypertension Qualified Code(s): I10 - Essential (primary) hypertension (6) Hyperlipidemia: CODE(S): E78.5 - Hyperlipidemia, unspecified QUALIFIERS: Hyperlipidemia type: unspecified Qualified Code(s): E78.5 - Hyperlipidemia, unspecified (7) PVD (peripheral vascular disease): CODE(S): I73.9 - Peripheral vascular disease, unspecified (8) PAD (peripheral artery disease): CODE(S): I73.9 - Peripheral vascular disease, unspecified (9) Venous insufficiency of both lower extremities: CODE(S): I87.2 - Venous insufficiency (chronic) (peripheral) (10) Ulcer of left foot with fat layer exposed: CODE(S): L97.522 - Non-pressure chronic ulcer of other part of left foot with fat layer exposed (11) Diabetic foot ulcer associated with type 2 diabetes mellitus, with fat layer exposed: CODE(S): E11.621 - Type 2 diabetes mellitus with foot ulcer; L97.502 - Non-pressure chronic ulcer of other part of unspecified foot with fat layer exposed QUALIFIERS: Diabetic foot ulcer location: midfoot Laterality: left Qualified Code(s): E11.621 - Type 2 diabetes mellitus with foot ulcer; L97.422 - Non-pressure chronic ulcer of left heel and midfoot with fat layer exposed PLAN: Plan Debridement performed today in clinic as annotated above. At home wound-care instructions: The patient will continue to wash with antibacterial soap and water and then will apply Aquacel Ag to the wound bed and cover with ABD and roll gauze changed daily. Keep dressing clean and dry. Off-loading: The patient was instructed to avoid pressure and friction on the affected areas. Reposition every 2 hours at minimum. Avoid prolonged standing and/or dangling of legs. When seated, feet should be elevated at chest level. Frequent ambulation is encouraged. Diet: Patient encouraged to increase protein intake while taking caution to avoid high carbohydrate and/or sugar intake. Labs/cultures/imaging: Culture was positive for Klebsiella, Staph aureus and Strep B agalactiae and he will complete Ciprofloxacin but will add Cefdinir to cover additional culture results. Follow-up: Return in 1 week for wound care follow up. Return sooner or report to the emergency room should symptoms worsen, or new symptoms arise. Note: [employer] speech recognition optical glass inspector software was used to create portions of this document. Sound-alike and misspelled words, as well as other optical glass inspector errors may be contained in the documentation.
[2025-01-19 09:02] VITALS: BP 167/53; PULSE 59; RESP 18; TEMP 35.9
--- NOTE | 2025-01-19 15:18 | PN.PCM_ITS ---
History of Present Illness Date of Service: 01/19/25 Chief Complaint: Left arch plantar ulcer History of Wound: David is a 54 year old male that presents to the wound center for evaluation and treatment of an ulcer of his left foot. The ulcer appeared approximately a month ago. He took his shoe off after work and his sock was bloody and soaked with drainage and there was a blister that had broke open. He has been applying gauze and washing with soap daily to treat the ulcer but it has not improved. He has not been on any antibiotics recently. He denies systemic symptoms such as fever, chills, erythema, odor. He works at the [employer] and he is on his feet all the time there. His last A1C was 10/2024 and was 13.6 %. He is a very poorly controlled diabetic on insulin. He does not have diabetic shoes. He does see Dr. Ozuna for podiatry for diabetic foot exams. 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 He also had repeat venous testing 04/08/23 which showed incompetence and vascular surgery was considered but was not done at that time. He has not been able to place compression because he is unable to bend to pull on compression stockings due to arthritis in his back. He is not able to wrap with RADHA bandages either. Circaids were tried previously but he was unable to do this as well. He has been wearing tubigrips for compression. He states he still has issues getting them on at times when his back is flared up. He has chronic lymphedema. Subjective Subjective Kian returns today for treatment of ulcer of his plantar left foot arch. He is tolerating treatment with Aquacel Ag well and his ulcer is healed. He denies increased pain, odor or drainage. Objective Data Objective Data Vital Signs: Vital Signs Temp Pulse Resp BP O2 Del Method 96.6 F L 59 L 18 167/53 H Room Air 01/19/25 09:02 01/19/25 09:02 01/19/25 09:02 01/19/25 09:02 01/12/25 10:32 Oxygen Delivery Method Room Air Lab / Micro Data Micro: Microbiology 12/29/24 10:48 Wound - Left Foot Gram Stain - Final 12/29/24 10:48 Wound - Left Foot Wound Culture - Final Klebsiella pneumoniae sp pneum Staphylococcus aureus Streptococcus agalactiae (B) 12/29/24 10:48 Wound - Left Foot Anaerobic Culture - Final No anaerobic bacteria isolated. Social Homelessness:: Sheltered Physical Exam Const alert, oriented x3 and no apparent distress General Appearance: cooperative and comfortable Nutritional Appearance: obese HEENT normocephalic and head/scalp atraumatic Resp normal respiratory effort Effort and Inspection: able to speak in complete sentences Cardio regular rate and regular rhythm Extremity General Extremity: edema bilateral lower extremity Details: trace Skin Wounds: wounds noted Wound Narrative: as in clinical panel, no surrounding erythema or cellulitis, no odor, minimal slough Psych mental status grossly normal, thought process normal, cooperative and affect normal Debridement Note Debridement Note Wound debrided: left arch of foot plantar Laterality: Left Wound Grade/Stage: Delgado grade 1 No debridement was completed: No debridement was completed today (Ulcer healed) Post-Debridement Measurements and Additional Note: Post-Debridement Measurements/Treatment - Nurse 1 - General Ulcer Assessment Start: 12/29/24 09:53 Freq: Status: Active Protocol: DESMOND.KRISTA Activity Type Activity Date Activity User E-sign Co-sign Detail Recorded Client Recorded Date Recorded By Document 12/29/24 09:53 KW [id number] 12/29/24 10:04 KW Document 01/05/25 10:18 KW [id number] 01/05/25 10:22 KW Document 01/12/25 10:32 KW [id number] 01/12/25 10:37 KW Document 01/19/25 09:02 RB [id number] 01/19/25 09:12 RB 12/29/24 01/05/25 01/12/25 09:53 10:18 10:32 - Today's Visit Information Type of service Initial Visit Follow-up Visit Follow-up Visit (Physician/BREAK OFF WORKER (Physician/BREAK OFF WORKER ) ) Arrival Mode Ambulatory Ambulatory Ambulatory Transfer Assistance Patient Identification Verified (Name & Yes Yes Yes ) Patient Requires Transmission-Based Precautions Vital Signs Temperature (97.8 F-99.1 F) 96.9 F L 97.2 F L 96.1 F L Temperature Source Temporal Temporal Temporal Pulse Rate (60-100) 98 73 71 Pulse Location Monitor Monitor Monitor Respiratory Rate (12-18) 16 16 18 Respiratory rate source Observation Observation Observation Oxygen Delivery Method Room Air Room Air Room Air Blood Pressure (90/60-120/80) 188/102 H 167/84 H 177/81 H Blood Pressure Mean (mm Hg) 130 111 113 Source Monitor Monitor Monitor Position Sitting Semi-Fowlers Semi-Fowlers Blood Pressure Location Right Arm Left Arm Left Arm History Since Last Visit- (Skip if this is Patient's initial visit) Have you changed medications since your No No last visit? Any new allergies or adverse reactions No No Had a fall/change in ADL's that may No No increase risk of falls Signs or symptoms of abuse and/or No No neglect since last visit Have you been in the hospital since your No No last visit? Has dressing in place as prescribed Yes Yes Has compression in place as prescribed Yes N/A Has offloadiing in place as prescribed N/A N/A Experienced any changes in pain level or No No management Left Footwear Regular Shoe Regular Shoe Regular Shoe Right Footwear Regular Shoe Regular Shoe Regular Shoe Pain Scale: 0-10 Numeric Is Patient Pain Free? Yes Yes Yes 01/19/25 09:02 WC - Today's Visit Information Type of service Follow-up Visit (Physician/BREAK OFF WORKER ) Arrival Mode Ambulatory Transfer Assistance None Patient Identification Verified (Name & Yes ) Patient Requires Transmission-Based No Precautions Vital Signs Temperature (97.8 F-99.1 F) 96.6 F L Temperature Source Temporal Pulse Rate (60-100) 59 L Pulse Location Monitor Respiratory Rate (12-18) 18 Respiratory rate source Observation Oxygen Delivery Method Blood Pressure (90/60-120/80) 167/53 H Blood Pressure Mean (mm Hg) 91 Source Monitor Position Semi-Fowlers Blood Pressure Location Left Arm History Since Last Visit- (Skip if this is Patient's initial visit) Have you changed medications since your No last visit? Any new allergies or adverse reactions No Had a fall/change in ADL's that may No increase risk of falls Signs or symptoms of abuse and/or No neglect since last visit Have you been in the hospital since your No last visit? Has dressing in place as prescribed Yes Has compression in place as prescribed N/A Has offloadiing in place as prescribed N/A Experienced any changes in pain level or No management Left Footwear Regular Shoe Right Footwear Regular Shoe Pain Scale: 0-10 Numeric Is Patient Pain Free? Yes - Nurse 1 - General Ulcer Measurement Start: 12/29/24 09:53 Freq: Status: Active Protocol: Activity Type Activity Date Activity User E-sign Co-sign Detail Recorded Client Recorded Date Recorded By Document 12/29/24 09:53 KW [id number] 12/29/24 10:04 KW Document 01/05/25 10:18 KW [id number] 01/05/25 10:22 KW Document 01/12/25 10:32 KW [id number] 01/12/25 10:37 KW Document 01/19/25 09:02 RB [id number] 01/19/25 09:12 RB 12/29/24 01/05/25 01/12/25 09:53 10:18 10:32 Wound Center Nurse 1 #14 RIGHT DELUNA -Combined with other wound -Current Size (cm) - Length -Current Size (cm) - Width -Current Size (cm) - Depth -Total Square Cm -Photo Taken -Tunneling -Undermining/Tunneling -Circular Undermining -Exudate Amt -Exudate Type -Wound Margin -Granulation Amt -Granulation Quality -Slough/Fibrin -Necrosis Amt -Necrotic Tissue Type -Structure Exposed -Texture (Milly-wound Skin Appearance) -Moisture (Milly-wound Skin Appearance) -Color (Milly-wound Skin Appearance) -Temperature (Milly-wound Skin Appearance) -Tenderness on Palpation (Milly-wound Skin Appearance) -Ulcer Cleansing -Foul Odor after Cleansing -Anesthetic Used #13 LT MED FOOT -Combined with other wound -Current Size (cm) - Length 4.3 3 2 -Current Size (cm) - Width 4 3.7 1.7 -Current Size (cm) - Depth 0.2 0.1 0.1 -Total Square Cm 17.2 11.1 3.4 -Date of Last Picture (Recall this 12/29/24 01/05/25 field) -Photo Taken -Tunneling -Undermining/Tunneling -Circular Undermining -Exudate Amt Medium Small Small -Exudate Type Serosanguineous Serosanguineous Serosanguineous -Wound Margin Distinct, Distinct, Distinct, Outline Outline Outline Attached Attached Attached -Granulation Amt Large (67-100%) Large (67-100%) Large (67-100%) -Granulation Quality [place],Red [place] -Slough/Fibrin -Necrosis Amt Small (1-33%) Small (1-33%) -Necrotic Tissue Type Adherent Slough Adherent Slough -Structure Exposed -Texture (Milly-wound Skin Appearance) Assessed,Callus Assessed,Callus Assesse d,Callus -Moisture (Milly-wound Skin Appearance) Assessed, Assessed,Dry/ Assessed,Dry/ Maceration Scaly Scaly -Color (Milly-wound Skin Appearance) Assessed Assessed Assessed -Temperature (Milly-wound Skin No Abnormality No Abnormality No Abnormality Appearance) (Pt Warm) (Pt Warm) (Pt Warm) -Tenderness on Palpation (Milly-wound No No No Skin Appearance) -Ulcer Cleansing Rinsed/ Rinsed/ Rinsed/ Irrigated with Irrigated with Irrigated with Saline Saline Saline -Foul Odor after Cleansing Yes No -Anesthetic Used 5% Lidocaine 5% Lidocaine 5% Lidocaine Gel Gel Gel Left Calf (cm) 39 Left Ankle (cm) 01/19/25 09:02 Wound Center Nurse 1 #14 RIGHT DELUNA -Combined with other wound No -Current Size (cm) - Length 2.7 -Current Size (cm) - Width 1.5 -Current Size (cm) - Depth 0.1 -Total Square Cm 4.05 -Photo Taken Yes -Tunneling No -Undermining/Tunneling No -Circular Undermining No -Exudate Amt Medium -Exudate Type Serosanguineous -Wound Margin Distinct, Outline Attached -Granulation Amt Medium (34-66%) -Granulation Quality [place] -Slough/Fibrin Yes -Necrosis Amt Small (1-33%) -Necrotic Tissue Type Adherent Slough -Structure Exposed N/A -Texture (Milly-wound Skin Appearance) Assessed -Moisture (Milly-wound Skin Appearance) Assessed -Color (Milly-wound Skin Appearance) Assessed -Temperature (Milly-wound Skin No Abnormality Appearance) (Pt Warm) -Tenderness on Palpation (Milly-wound No Skin Appearance) -Ulcer Cleansing Wound Cleanser -Foul Odor after Cleansing No -Anesthetic Used 5% Lidocaine Gel #13 LT MED FOOT -Combined with other wound No -Current Size (cm) - Length 0.1 -Current Size (cm) - Width 0.1 -Current Size (cm) - Depth 0.1 -Total Square Cm 0.01 -Date of Last Picture (Recall this field) -Photo Taken Yes -Tunneling No -Undermining/Tunneling No -Circular Undermining No -Exudate Amt Small -Exudate Type Serosanguineous -Wound Margin Distinct, Outline Attached -Granulation Amt Large (67-100%) -Granulation Quality [place] -Slough/Fibrin Yes -Necrosis Amt Small (1-33%) -Necrotic Tissue Type Adherent Slough -Structure Exposed N/A -Texture (Milly-wound Skin Appearance) Assessed, Scarring -Moisture (Milly-wound Skin Appearance) Dry/Scaly -Color (Milly-wound Skin Appearance) Assessed -Temperature (Milly-wound Skin No Abnormality Appearance) (Pt Warm) -Tenderness on Palpation (Milly-wound No Skin Appearance) -Ulcer Cleansing Wound Cleanser -Foul Odor after Cleansing No -Anesthetic Used 5% Lidocaine Gel Left Calf (cm) Left Ankle (cm) WC - Nurse 2 - General Ulcer CM Notes Start: 12/29/24 09:53 Freq: Status: Active Protocol: Activity Type Activity Date Activity User E-sign Co-sign Detail Recorded Client Recorded Date Recorded By Document 12/29/24 10:29 [id number] 12/29/24 10:49 Document 01/05/25 11:22 GM [id number] 01/05/25 11:48 GM Document 01/12/25 10:46 GM [id number] 01/12/25 11:19 GM Document 01/19/25 09:25 GM [id number] 01/19/25 09:37 GM 12/29/24 01/05/25 01/12/25 10:29 11:22 10:46 Wound Center Nurse 2 #14 RIGHT DELUNA -Time 10:50 -Correct Patient Yes -Correct Side, Site, Position Yes -Correct Procedure Yes -Procedure Performed Yes -Type of Procedure Debridement -Clinical Debridement Subcutaneous -Tissue Removed Subcutaneous -Post Debridement (cm) - Length 2.5 -Post Debridement (cm) - Width 1.0 -Post Debridement (cm) - Depth 0.1 -Total Square (Post) (cm) 2.50 -Area of Debridement (cm) - Length 2.5 -Area of Debridement (cm) - Width 1.0 -Total Square (Area) (cm) 2.50 -Tunneling No -Undermining/Tunneling No -Circular Undermining No -Wound/Ulcer Outcome Not Healed -Ulcer Cleansing Rinsed/ Irrigated with Saline -Foul Odor after Cleansing No -Bioengineered Tissue No -Bleeding Controlled with Pressure -Treatment Response Procedure Tolerated Well -Offloading No -Debridement - Subq, 1st 20sq cm No #13 LT MED FOOT -Time 10:37 11:26 10:47 -Correct Patient Yes Yes Yes -Correct Side, Site, Position Yes Yes Yes -Correct Procedure Yes Yes Yes -Procedure Performed Yes Yes Yes -Type of Procedure Debridement Debridement Debridement -Clinical Debridement Subcutaneous Subcutaneous Subcutaneous -Tissue Removed Subcutaneous Subcutaneous -Post Debridement (cm) - Length 4.0 3.8 2.5 -Post Debridement (cm) - Width 4.0 3.8 4.5 -Post Debridement (cm) - Depth 0.1 0.2 0.1 -Total Square (Post) (cm) 16.00 14.44 11.25 -Area of Debridement (cm) - Length 4.0 3.8 2.5 -Area of Debridement (cm) - Width 4.0 3.8 4.5 -Total Square (Area) (cm) 16.00 14.44 11.25 -Tunneling No No No -Undermining/Tunneling No No No -Circular Undermining No No No -Wound/Ulcer Outcome Not Healed Not Healed Not Healed -Ulcer Cleansing Rinsed/ Rinsed/ Rinsed/ Irrigated with Irrigated with Irrigated with Saline Saline Saline -Foul Odor after Cleansing No No No -Bioengineered Tissue No No No -Bleeding Controlled with Pressure Pressure -Treatment Response Procedure Procedure Tolerated Well Tolerated Well -Debridement - Subq, 1st 20sq cm Yes Yes Yes Pain Scale: 0-10 Numeric Is Patient Pain Free? Yes Yes Yes 01/19/25 09:25 Wound Center Nurse 2 #14 RIGHT DELUNA -Time 09:25 -Correct Patient Yes -Correct Side, Site, Position Yes -Correct Procedure Yes -Procedure Performed Yes -Type of Procedure Debridement -Clinical Debridement Subcutaneous -Tissue Removed Subcutaneous -Post Debridement (cm) - Length 1.5 -Post Debridement (cm) - Width 1.6 -Post Debridement (cm) - Depth 0.1 -Total Square (Post) (cm) 2.40 -Area of Debridement (cm) - Length 1.5 -Area of Debridement (cm) - Width 1.3 -Total Square (Area) (cm) 1.95 -Tunneling No -Undermining/Tunneling No -Circular Undermining No -Wound/Ulcer Outcome Not Healed -Ulcer Cleansing Rinsed/ Irrigated with Saline -Foul Odor after Cleansing No -Bioengineered Tissue No -Bleeding Controlled with Pressure -Treatment Response Procedure Tolerated Well -Offloading -Debridement - Subq, 1st 20sq cm Yes #13 LT MED FOOT -Time 09:26 -Correct Patient Yes -Correct Side, Site, Position Yes -Correct Procedure No -Procedure Performed No -Type of Procedure -Clinical Debridement -Tissue Removed -Post Debridement (cm) - Length -Post Debridement (cm) - Width -Post Debridement (cm) - Depth -Total Square (Post) (cm) -Area of Debridement (cm) - Length -Area of Debridement (cm) - Width -Total Square (Area) (cm) -Tunneling No -Undermining/Tunneling No -Circular Undermining No -Wound/Ulcer Outcome Healed- Epithelialized -Ulcer Cleansing -Foul Odor after Cleansing No -Bioengineered Tissue No -Bleeding Controlled with NA -Treatment Response -Debridement - Subq, 1st 20sq cm Pain Scale: 0-10 Numeric Is Patient Pain Free? Yes - Nurse 3 - General Ulcer D/C NN Start: 12/29/24 09:53 Freq: Status: Active Protocol: Activity Type Activity Date Activity User E-sign Co-sign Detail Recorded Client Recorded Date Recorded By Document 12/29/24 11:04 RB [id number] 12/29/24 11:05 RB Document 01/05/25 11:54 KW [id number] 01/05/25 11:55 KW Document 01/12/25 11:24 KW [id number] 01/12/25 11:26 KW Document 01/19/25 09:45 [id number] 01/19/25 09:46 12/29/24 01/05/25 01/12/25 11:04 11:54 11:24 Wound Care Center Nurse 3 #13 LT MED FOOT -Ulcer Cleansing Rinsed/ Irrigated with Saline -Primary Dressing Applied Aquacel AG 4x4 Aquacel AG 4x4 -Other Dressing abd -Primary Dressing Covered/Secured with Dry Gauze,Dry Dry Gauze & Gauze & Roll Roll Gauze, Gauze,Secured Secured with with Tape Tape -Aquacel AG 4x4 1 1 Treatment Response Procedure Tolerated Well Pain Scale: 0-10 Numeric Is Patient Pain Free? Yes Yes Yes Teaching: Wound Center Dressing Your Wound -Person Taught Patient -Teaching Method Discussion, Demonstration -Response to teaching Verbalize Understanding WC - Visit Discharge Discharge Condition Stable Stable Stable Ambulatory Status Ambulatory Ambulatory Ambulatory Transportation Private Auto Private Auto Private Auto Medication Reconcilliation completed & No No No provided to patient/care provider Clinical Summary of Care Provided Yes Yes Yes #14 RIGHT DELUNA -Ulcer Cleansing -Foul Odor after Cleansing -Primary Dressing Applied -Primary Dressing Covered/Secured with -Foam Supply Charges Promogran Indy Matter -Primary Dressing Covered/Secured with Dry Gauze & Roll Gauze, Secured with Tape -Hydrogel -Promogran Indy Matter 1 #13 LT MED FOOT -Ulcer Cleansing -Foul Odor after Cleansing -Primary Dressing Covered/Secured with -Foam Supply Charges Aquacel AG 4x4, Promogran Indy Matter -Primary Dressing Covered/Secured with Dry Gauze & Roll Gauze, Secured with Tape -Aquacel AG 4x4 1 -Promogran Indy Matter 1 01/19/25 09:45 Wound Care Center Nurse 3 #13 LT MED FOOT -Ulcer Cleansing -Primary Dressing Applied -Other Dressing -Primary Dressing Covered/Secured with -Aquacel AG 4x4 Treatment Response Pain Scale: 0-10 Numeric Is Patient Pain Free? Yes Teaching: Wound Center Dressing Your Wound -Person Taught -Teaching Method -Response to teaching WC - Visit Discharge Discharge Condition Stable Ambulatory Status Ambulatory Transportation Private Auto Medication Reconcilliation completed & provided to patient/care provider Clinical Summary of Care Provided #14 RIGHT DELUNA -Ulcer Cleansing Soap and Water -Foul Odor after Cleansing No -Primary Dressing Applied C Hydrogel -Primary Dressing Covered/Secured with Dry Gauze, Secured with Tape -Foam Supply Charges -Primary Dressing Covered/Secured with -Hydrogel 1 -Promogran Indy Matter #13 LT MED FOOT -Ulcer Cleansing Not Cleansed -Foul Odor after Cleansing No -Primary Dressing Covered/Secured with Dry Gauze, Secured with Tape -Foam Supply Charges -Primary Dressing Covered/Secured with -Aquacel AG 4x4 -Promogran Indy Matter Additional Wound Wound debrided: right deluna Laterality: Right Type of Debridement: Excisional debridement Anesthesia Used: 5% Lidocaine Gel Depth: Down to and including healthy tissue and in the subcutaneous layer Percentage of wound debrided: 100 Instrument Used: 3mm curette Tissue Removed: Yellow slough, devitalized tissue Severity: Fat Layer Exposed Amount of bleeding with debridement: Mild Bleeding Controlled with: Compression and gauze Patient tolerated procedure: Patient tolerated procedure well Assessment/Plan Assessment/Plan (1) Uncontrolled diabetes mellitus: QUALIFIERS: Diabetes mellitus type: type 2 Glycemic state: with hyperglycemia Qualified Code(s): E11.65 - Type 2 diabetes mellitus with hyperglycemia (2) Ulcer of heel due to diabetes: CODE(S): E11.621 - Type 2 diabetes mellitus with foot ulcer; L97.409 - Non-pressure chronic ulcer of unspecified heel and midfoot with unspecified severity QUALIFIERS: Diabetes mellitus type: type 2 Laterality: left Non- pressure ulcer stage: with fat layer exposed Qualified Code(s): E11.621 - Type 2 diabetes mellitus with foot ulcer; L97.422 - Non-pressure chronic ulcer of left heel and midfoot with fat layer exposed (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: CODE(S): E11.49 - Type 2 diabetes mellitus with other diabetic neurological complication (4) Insulin dependent diabetes mellitus: (5) HTN (hypertension): CODE(S): I10 - Essential (primary) hypertension QUALIFIERS: Hypertension type: primary hypertension Qualified Code(s): I10 - Essential (primary) hypertension (6) Hyperlipidemia: CODE(S): E78.5 - Hyperlipidemia, unspecified QUALIFIERS: Hyperlipidemia type: unspecified Qualified Code(s): E78.5 - Hyperlipidemia, unspecified (7) PVD (peripheral vascular disease): CODE(S): I73.9 - Peripheral vascular disease, unspecified (8) PAD (peripheral artery disease): CODE(S): I73.9 - Peripheral vascular disease, unspecified (9) Venous insufficiency of both lower extremities: CODE(S): I87.2 - Venous insufficiency (chronic) (peripheral) (10) Ulcer of left foot with fat layer exposed: CODE(S): L97.522 - Non-pressure chronic ulcer of other part of left foot with fat layer exposed (11) Diabetic foot ulcer associated with type 2 diabetes mellitus, with fat layer exposed: CODE(S): E11.621 - Type 2 diabetes mellitus with foot ulcer; L97.502 - Non-pressure chronic ulcer of other part of unspecified foot with fat layer exposed QUALIFIERS: Diabetic foot ulcer location: midfoot Laterality: left Qualified Code(s): E11.621 - Type 2 diabetes mellitus with foot ulcer; L97.422 - Non-pressure chronic ulcer of left heel and midfoot with fat layer exposed (12) Ulcer of right deluna with fat layer exposed: CODE(S): L97.812 - Non-pressure 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 At home wound-care instructions: The patient will continue to wash with antibacterial soap and water and then will apply Hydrogel to the wound bed of right deluna ulcer and cover with ABD and roll gauze changed daily. Keep dressing clean and dry. Off-loading: The patient was instructed to avoid pressure and friction on the affected areas. Reposition every 2 hours at minimum. Avoid prolonged standing and/or dangling of legs. When seated, feet should be elevated at chest level. Frequent ambulation is encouraged. Diet: Patient encouraged to increase protein intake while taking caution to avoid high carbohydrate and/or sugar intake. Labs/cultures/imaging: Culture was positive for Klebsiella, Staph aureus and Strep B agalactiae and he completed Ciprofloxacin but did not take cefdinir due to not being able to afford medication. Follow-up: Return in 2 weeks for wound care follow up. Return sooner or report to the emergency room should symptoms worsen, or new symptoms arise. Note: [employer] speech recognition medical billing clerk software was used to create portions of this document. Sound-alike and misspelled words, as well as other medical billing clerk errors may be contained in the documentation.
== END 2025-01-19 23:59 | disposition home or self-care (01) ==
LOC: WC 09:00
PROVIDERS: PCP Family Medicine; Referring Provider Family Medicine; Visit Provider Family Medicine
DX: E11.621 Type 2 diabetes mellitus with foot ulcer (principal); L97.422 Non-pressure chronic ulcer of left heel and midfoot with fat layer exposed; L97.522 Non-pressure chronic ulcer of other part of left foot with fat layer exposed; L97.812 Non-pressure chronic ulcer of other part of right lower leg with fat layer exposed; E11.65 Type 2 diabetes mellitus with hyperglycemia; E11.59 Type 2 diabetes mellitus with other circulatory complications; E11.51 Type 2 diabetes mellitus with diabetic peripheral angiopathy without gangrene; E11.49 Type 2 diabetes mellitus with other diabetic neurological complication; Z79.4 Long term (current) use of insulin; I87.2 Venous insufficiency (chronic) (peripheral); E78.5 Hyperlipidemia, unspecified; Z79.84 Long term (current) use of oral hypoglycemic drugs; Z79.83 Long term (current) use of bisphosphonates; I10 Essential (primary) hypertension; I89.0 Lymphedema, not elsewhere classified; Z79.85 Long-term (current) use of injectable non-insulin antidiabetic drugs
CPT/HCPCS: 11042; 87070; 87075; 87077; 87186; 87205

== ENCOUNTER 2025-02-16 07:53 | Outpatient (RCR) | payer OTHER, SELFPAY ==
[2025-01-20 01:25] VITALS: BP 167/53; PULSE 59; RESP 18; TEMP 35.9
[2025-02-16 08:53] VITALS: BP 176/96; PULSE 82; RESP 16; TEMP 35.8
--- NOTE | 2025-02-16 10:16 | PN.PCM_ITS ---
History of Present Illness Date of Service: 02/16/25 Chief Complaint: Left arch plantar ulcer, right deluna History of Wound: David is a 54 year old male that presents to the wound center for evaluation and treatment of an ulcer of his left foot. The ulcer appeared approximately a month ago. He took his shoe off after work and his sock was bloody and soaked with drainage and there was a blister that had broke open. He has been applying gauze and washing with soap daily to treat the ulcer but it has not improved. He has not been on any antibiotics recently. He denies systemic symptoms such as fever, chills, erythema, odor. 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 His last A1C was 10/2024 and was 13.6 %. He is a very poorly controlled diabetic on insulin. He does not have diabetic shoes. He does see Dr. Ozuna for podiatry for diabetic foot exams. 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 He also had repeat venous testing 04/08/23 which showed incompetence and vascular surgery was considered but was not done at that time. He has not been able to place compression because he is unable to bend to pull on compression stockings due to arthritis in his back. He is not able to wrap with RADHA bandages either. Circaids were tried previously but he was unable to do this as well. He has been wearing tubigrips for compression. He states he still has issues getting them on at times when his back is flared up. He has chronic lymphedema. Subjective Subjective Kian returns today for treatment of ulcer of his plantar left foot arch. It remains healed. His right deluna is improving. He denies increased pain, odor or drainage. Objective Data Objective Data Vital Signs: Vital Signs Temp Pulse Resp BP O2 Del Method 96.5 F L 82 16 176/96 H Room Air 02/16/25 08:53 02/16/25 08:53 02/16/25 08:53 02/16/25 08:53 02/16/25 08:53 Oxygen Delivery Method Room Air Social Homelessness:: Sheltered Physical Exam Const alert, oriented x3 and no apparent distress General Appearance: cooperative and comfortable Nutritional Appearance: obese HEENT normocephalic and head/scalp atraumatic Resp normal respiratory effort Effort and Inspection: able to speak in complete sentences Cardio regular rate and regular rhythm Extremity General Extremity: edema bilateral lower extremity Details: trace Skin Wounds: wounds noted Wound Narrative: as in clinical panel, no surrounding erythema or cellulitis, no odor, minimal slough Psych mental status grossly normal, thought process normal, cooperative and affect normal Debridement Note Debridement Note Wound debrided: right deluna Laterality: Right Type of Debridement: Excisional debridement Anesthesia Used: 5% Lidocaine Gel Depth: Down to and including healthy tissue and in the subcutaneous layer Percentage of wound debrided: 100 Instrument Used: 3mm curette Tissue Removed: Yellow slough, devitalized tissue Severity: Fat Layer Exposed Amount of bleeding with debridement: Mild Bleeding Controlled with: Compression and gauze Patient tolerated procedure: Patient tolerated procedure well Post-Debridement Measurements and Additional Note: Post-Debridement Measurements/Treatment DESMOND - Nurse 1 - General Ulcer Assessment Start: 02/16/25 08:53 Freq: Status: Active Protocol: MART Activity Type Activity Date Activity User E-sign Co-sign Detail Recorded Client Recorded Date Recorded By Document 02/16/25 08:53 [id number] 02/16/25 08:56 KW 02/16/25 08:53 - Today's Visit Information Type of service Follow-up Visit (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 Any new allergies or adverse reactions No Had a fall/change in ADL's that may No increase risk of falls Signs or symptoms of abuse and/or No neglect since last visit Have you been in the hospital since your No last visit? Has dressing in place as prescribed Yes Has compression in place as prescribed N/A Has offloadiing in place as prescribed N/A Experienced any changes in pain level or No management Left Footwear Regular Shoe Right Footwear Regular Shoe Pain Scale: 0-10 Numeric Is Patient Pain Free? Yes - Nurse 1 - General Ulcer Measurement Start: 02/16/25 08:53 Freq: Status: Active Protocol: Activity Type Activity Date Activity User E-sign Co-sign Detail Recorded Client Recorded Date Recorded By Document 02/16/25 08:53 KW [id number] 02/16/25 08:56 KW 02/16/25 08:53 Wound Center Nurse 1 #14 RIGHT DELUNA -Current Size (cm) - Length 0.1 -Current Size (cm) - Width 0.1 -Current Size (cm) - Depth 0 -Total Square Cm 0.01 -Date of Last Picture (Recall this 02/16/25 field) -Exudate Amt None Present -Wound Margin Distinct, Outline Attached -Granulation Amt None Present (0 %) -Necrosis Amt Small (1-33%) -Necrotic Tissue Type Adherent Slough -Texture (Milly-wound Skin Appearance) Assessed -Moisture (Milly-wound Skin Appearance) Assessed -Color (Milly-wound Skin Appearance) Assessed, Erythema -Temperature (Milly-wound Skin No Abnormality Appearance) (Pt Warm) -Tenderness on Palpation (Milly-wound No Skin Appearance) -Foul Odor after Cleansing No -Anesthetic Used 5% Lidocaine Gel -Wound Comment(s) scabbed WC - Nurse 2 - General Ulcer CM Notes Start: 02/16/25 08:53 Freq: Status: Active Protocol: Activity Type Activity Date Activity User E-sign Co-sign Detail Recorded Client Recorded Date Recorded By Document 02/16/25 09:15 DS [id number] 02/16/25 09:20 DS 02/16/25 09:15 Wound Center Nurse 2 -Time 09:15 -Correct Patient Yes -Correct Side, Site, Position Yes -Correct Procedure Yes -Procedure Performed Yes -Type of Procedure Debridement -Clinical Debridement Subcutaneous -Tissue Removed Subcutaneous -Post Debridement (cm) - Length 0.4 -Post Debridement (cm) - Width 0.6 -Post Debridement (cm) - Depth 0.1 -Total Square (Post) (cm) 0.24 -Area of Debridement (cm) - Length 0.4 -Area of Debridement (cm) - Width 0.6 -Total Square (Area) (cm) 0.24 -Tunneling No -Undermining/Tunneling No -Circular Undermining No -Wound/Ulcer Outcome Not Healed -Ulcer Cleansing Rinsed/ Irrigated with Saline -Foul Odor after Cleansing No -Bioengineered Tissue No -Bleeding Controlled with Pressure -Treatment Response Procedure Tolerated Well -Debridement - Subq, 1st 20sq cm Yes Pain Scale: 0-10 Numeric Is Patient Pain Free? Yes WC - Nurse 3 - General Ulcer D/C NN Start: 02/16/25 08:53 Freq: Status: Active Protocol: Activity Type Activity Date Activity User E-sign Co-sign Detail Recorded Client Recorded Date Recorded By Document 02/16/25 09:25 KW [id number] 02/16/25 09:26 KW 02/16/25 09:25 Wound Care Center Nurse 3 #14 RIGHT DELUNA -Other Dressing continue c. hydrogel -Primary Dressing Covered/Secured with Dry Gauze, Secured with Tape Pain Scale: 0-10 Numeric Is Patient Pain Free? 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: CODE(S): E11.49 - Type 2 diabetes mellitus with other diabetic neurological complication (3) Insulin dependent diabetes mellitus: (4) HTN (hypertension): CODE(S): I10 - Essential (primary) hypertension QUALIFIERS: Hypertension type: primary hypertension Qualified Code(s): I10 - Essential (primary) hypertension (5) Hyperlipidemia: CODE(S): E78.5 - Hyperlipidemia, unspecified QUALIFIERS: Hyperlipidemia type: unspecified Qualified Code(s): E78.5 - Hyperlipidemia, unspecified (6) PVD (peripheral vascular disease): CODE(S): I73.9 - Peripheral vascular disease, unspecified (7) PAD (peripheral artery disease): CODE(S): I73.9 - Peripheral vascular disease, unspecified (8) Venous insufficiency of both lower extremities: CODE(S): I87.2 - Venous insufficiency (chronic) (peripheral) (9) Ulcer of right deluna with fat layer exposed: CODE(S): L97.812 - Non-pressure 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 At home wound-care instructions: The patient will continue to wash with antibacterial soap and water and then will apply Hydrogel to the wound bed of right deluna ulcer and cover with ABD and roll gauze changed daily. Keep dressing clean and dry. Off-loading: The patient was instructed to avoid pressure and friction on the affected areas. Reposition every 2 hours at minimum. Avoid prolonged standing and/or dangling of legs. When seated, feet should be elevated at chest level. Frequent ambulation is encouraged. Diet: Patient encouraged to increase protein intake while taking caution to avoid high carbohydrate and/or sugar intake. Labs/cultures/imaging: Culture was positive for Klebsiella, Staph aureus and Strep B agalactiae and he completed Ciprofloxacin but did not take cefdinir due to not being able to afford medication. Follow-up: Return in 2 weeks for wound care follow up. Return sooner or report to the emergency room should symptoms worsen, or new symptoms arise. Note: [employer] speech recognition barrel bung remover and dumper software was used to create portions of this document. Sound-alike and misspelled words, as well as other barrel bung remover and dumper errors may be contained in the documentation.
--- NOTE | 2025-02-16 12:25 | WC ---
PHOTO 02/16/25 RIGHT SHARP
== END 2025-02-19 23:59 | disposition home or self-care (01) ==
LOC: WC 07:53
PROVIDERS: PCP Family Medicine; Referring Provider Family Medicine; Visit Provider Family Medicine
DX: E11.622 Type 2 diabetes mellitus with other skin ulcer (principal); L97.812 Non-pressure chronic ulcer of other part of right lower leg with fat layer exposed; E11.49 Type 2 diabetes mellitus with other diabetic neurological complication; E11.65 Type 2 diabetes mellitus with hyperglycemia; E11.51 Type 2 diabetes mellitus with diabetic peripheral angiopathy without gangrene; Z79.4 Long term (current) use of insulin; I89.0 Lymphedema, not elsewhere classified; I10 Essential (primary) hypertension; E78.5 Hyperlipidemia, unspecified; I87.2 Venous insufficiency (chronic) (peripheral)
CPT/HCPCS: 11042

== ENCOUNTER 2025-04-13 09:45 | Outpatient (RCR) | payer OTHER, SELFPAY ==
[2025-02-20 00:48] VITALS: BP 176/96; PULSE 82; RESP 16; TEMP 35.8
[2025-03-30 09:59] VITALS: RESP 16
--- NOTE | 2025-03-30 15:36 | PCM.WC.PN ---
History of Present Illness Date of Service: 03/30/25 Chief Complaint: Left arch plantar ulcer, right deluna History of Wound: David is a 54 year old male that presents to the wound center for evaluation and treatment of an ulcer of his left foot. The ulcer appeared approximately a month ago. He took his shoe off after work and his sock was bloody and soaked with drainage and there was a blister that had broke open. He has been applying gauze and washing with soap daily to treat the ulcer but it has not improved. He has not been on any antibiotics recently. He denies systemic symptoms such as fever, chills, erythema, odor. He works at the [employer] and he is on his feet all the time there. His last A1C was 10/2024 and was 13.6 %. He is a very poorly controlled diabetic on insulin. He does not have diabetic shoes. He does see Dr. Ozuna for podiatry for diabetic foot exams. 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 He also had repeat venous testing 04/08/23 which showed incompetence and vascular surgery was considered but was not done at that time. He has not been able to place compression because he is unable to bend to pull on compression stockings due to arthritis in his back. He is not able to wrap with RADHA bandages either. Circaids were tried previously but he was unable to do this as well. He has been wearing tubigrips for compression. He states he still has issues getting them on at times when his back is flared up. He has chronic lymphedema. Subjective Subjective Kian returns today for treatment of his right deluna ulcer. He has been lost to follow up for a few weeks because of work commitments. He has also developed a new ulcer of his left plantar arch of his foot. He denies increased pain, odor or drainage. Objective Data Objective Data Vital Signs: Vital Signs Temp Pulse Resp BP O2 Del Method 96.5 F L 82 16 176/96 H Room Air 02/20/25 00:48 02/20/25 00:48 03/30/25 09:59 02/20/25 00:48 03/30/25 09:59 Oxygen Delivery Method Room Air Lab / Micro Data Micro: Microbiology 03/30/25 10:24 Wound - Left Foot Gram Stain - Final Social Homelessness:: Sheltered Physical Exam Const alert, oriented x3 and no apparent distress General Appearance: cooperative and comfortable Nutritional Appearance: obese HEENT normocephalic and head/scalp atraumatic Resp normal respiratory effort Effort and Inspection: able to speak in complete sentences Cardio regular rate and regular rhythm Extremity General Extremity: edema bilateral lower extremity Details: trace Skin Wounds: wounds noted Wound Narrative: as in clinical panel, no surrounding erythema or cellulitis, no odor, minimal slough Psych mental status grossly normal, thought process normal, cooperative and affect normal Debridement Note Debridement Note Wound debrided: right deluna Laterality: Right Type of Debridement: Excisional debridement Anesthesia Used: 5% Lidocaine Gel Depth: Down to and including healthy tissue and in the subcutaneous layer Percentage of wound debrided: 100 Instrument Used: 3mm curette Tissue Removed: Yellow slough, devitalized tissue Severity: Fat Layer Exposed Amount of bleeding with debridement: Mild Bleeding Controlled with: Compression and gauze Patient tolerated procedure: Patient tolerated procedure well Post-Debridement Measurements and Additional Note: Post-Debridement Measurements/Treatment - Nurse 1 - General Ulcer Assessment Start: 03/30/25 09:59 Freq: Status: Active Protocol: [email or web address] Activity Type Activity Date Activity User E-sign Co-sign Detail Recorded Client Recorded Date Recorded By Document 03/30/25 09:59 [id number] 03/30/25 10:05 03/30/25 09:59 - Today's Visit Information Type of service Follow-up Visit (Physician/DECK[employer]NA [employer] ) Arrival Mode Ambulatory Patient Identification Verified (Name & Yes ) Vital Signs Temperature Source Temporal Pulse Location Monitor Respiratory Rate (12-18) 16 Respiratory rate source Observation Oxygen Delivery Method Room Air Source Monitor Position Semi-Fowlers Blood Pressure Location Left Arm History Since Last Visit- (Skip if this is Patient's initial visit) Have you changed medications since your No last visit? Any new allergies or adverse reactions No Had a fall/change in ADL's that may No increase risk of falls Signs or symptoms of abuse and/or No neglect since last visit Have you been in the hospital since your No last visit? Has dressing in place as prescribed Yes Has compression in place as prescribed N/A Has offloadiing in place as prescribed N/A Experienced any changes in pain level or No management Left Footwear Regular Shoe Right Footwear Regular Shoe Pain Scale: 0-10 Numeric Is Patient Pain Free? Yes WC - Nurse 1 - General Ulcer Measurement Start: 03/30/25 09:59 Freq: Status: Active Protocol: Activity Type Activity Date Activity User E-sign Co-sign Detail Recorded Client Recorded Date Recorded By Document 03/30/25 09:59 KW [id number] 03/30/25 10:05 KW 03/30/25 09:59 Wound Center Nurse 1 #14 RIGHT DELUNA -Current Size (cm) - Length 5.5 -Current Size (cm) - Width 1 -Current Size (cm) - Depth 0.1 -Total Square Cm 5.5 -Date of Last Picture (Recall this 03/30/25 field) -Exudate Amt Medium -Exudate Type Serosanguineous -Wound Margin Distinct, Outline Attached -Granulation Amt Large (67-100%) -Granulation Quality Red -Texture (Milly-wound Skin Appearance) Assessed -Moisture (Milly-wound Skin Appearance) Assessed -Color (Milly-wound Skin Appearance) Assessed -Temperature (Milly-wound Skin No Abnormality Appearance) (Pt Warm) -Tenderness on Palpation (Milly-wound No Skin Appearance) -Ulcer Cleansing Rinsed/ Irrigated with Saline -Foul Odor after Cleansing No -Anesthetic Used 5% Lidocaine Gel #13 LT MED FOOT -Current Size (cm) - Length 1 -Current Size (cm) - Width 1 -Current Size (cm) - Depth 0.1 -Total Square Cm 1 -Date of Last Picture (Recall this 03/30/25 field) -Exudate Amt Small -Exudate Type Serosanguineous -Wound Margin Distinct, Outline Attached -Granulation Amt Medium (34-66%) -Granulation Quality [place] -Necrosis Amt Medium (34-66%) -Necrotic Tissue Type Adherent Slough -Texture (Milly-wound Skin Appearance) Assessed,Callus -Moisture (Milly-wound Skin Appearance) Assessed -Color (Milly-wound Skin Appearance) Assessed -Temperature (Milly-wound Skin No Abnormality Appearance) (Pt Warm) -Tenderness on Palpation (Milly-wound No Skin Appearance) -Ulcer Cleansing Rinsed/ Irrigated with Saline -Foul Odor after Cleansing No -Anesthetic Used 5% Lidocaine Gel WC - Nurse 2 - General Ulcer CM Notes Start: 03/30/25 09:59 Freq: Status: Active Protocol: Activity Type Activity Date Activity User E-sign Co-sign Detail Recorded Client Recorded Date Recorded By Document 03/30/25 10:12 [id number] 03/30/25 10:22 03/30/25 10:12 Wound Center Nurse 2 #14 RIGHT DELUNA -Time 10:13 -Correct Patient Yes -Correct Side, Site, Position Yes -Correct Procedure Yes -Procedure Performed Yes -Type of Procedure Debridement -Clinical Debridement Subcutaneous -Tissue Removed Subcutaneous -Post Debridement (cm) - Length 1.4 -Post Debridement (cm) - Width 1.1 -Post Debridement (cm) - Depth 0.1 -Total Square (Post) (cm) 1.54 -Area of Debridement (cm) - Length 1.4 -Area of Debridement (cm) - Width 1.1 -Total Square (Area) (cm) 1.54 -Tunneling No -Undermining/Tunneling No -Circular Undermining No -Wound/Ulcer Outcome Not Healed -Ulcer Cleansing Rinsed/ Irrigated with Saline -Foul Odor after Cleansing No -Bioengineered Tissue No -Bleeding Controlled with Pressure -Treatment Response Procedure Tolerated Well -Offloading No -Debridement - Subq, 1st 20sq cm No #13 LT MED FOOT -Time 10:13 -Correct Patient Yes -Correct Side, Site, Position Yes -Correct Procedure Yes -Procedure Performed Yes -Type of Procedure Debridement -Clinical Debridement Subcutaneous -Tissue Removed Subcutaneous -Post Debridement (cm) - Length 0.7 -Post Debridement (cm) - Width 0.8 -Post Debridement (cm) - Depth 0.1 -Total Square (Post) (cm) 0.56 -Area of Debridement (cm) - Length 0.7 -Area of Debridement (cm) - Width 0.8 -Total Square (Area) (cm) 0.56 -Tunneling No -Undermining/Tunneling No -Circular Undermining No -Wound/Ulcer Outcome Not Healed -Ulcer Cleansing Rinsed/ Irrigated with Saline -Foul Odor after Cleansing No -Bioengineered Tissue No -Bleeding Controlled with Pressure -Treatment Response Procedure Tolerated Well -Offloading No -Debridement - Subq, 1st 20sq cm Yes Pain Scale: 0-10 Numeric Is Patient Pain Free? Yes WC - Nurse 3 - General Ulcer D/C NN Start: 03/30/25 09:59 Freq: Status: Active Protocol: Activity Type Activity Date Activity User E-sign Co-sign Detail Recorded Client Recorded Date Recorded By Document 03/30/25 10:34 [email or web address] [id number] 03/30/25 10:35 DEDRICK 03/30/25 10:34 Wound Care Center Nurse 3 #14 RIGHT DELUNA -Other Dressing hydrogel -Primary Dressing Covered/Secured with Dry Gauze & Roll Gauze, Secured with Tape #13 LT MED FOOT -Primary Dressing Applied Fibracol Plus 4x4 -Primary Dressing Covered/Secured with Dry Gauze, Secured with Tape -Fibracol Plus 4x4 1 Pain Scale: 0-10 Numeric Is Patient Pain Free? Yes WC - Visit Discharge Discharge Condition Stable Ambulatory Status Ambulatory Transportation Private Auto Medication Reconcilliation completed & No provided to patient/care provider Clinical Summary of Care Provided Yes Additional Wound Wound debrided: left plantar arch Laterality: Left Wound Grade/Stage: Delgado Grade 1 Type of Debridement: Excisional debridement Anesthesia Used: 5% Lidocaine Gel Depth: Down to and including healthy tissue and in the subcutaneous layer Percentage of wound debrided: 100 Instrument Used: 3mm curette Tissue Removed: Yellow slough, devitalized tissue Severity: Fat Layer Exposed Amount of bleeding with debridement: Mild Bleeding Controlled with: Compression and gauze Patient tolerated procedure: Patient tolerated procedure well Assessment/Plan Assessment/Plan (1) Uncontrolled diabetes mellitus: QUALIFIERS: Diabetes mellitus type: type 2 Glycemic state: with hyperglycemia Qualified Code(s): E11.65 - Type 2 diabetes mellitus with hyperglycemia (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: CODE(S): E11.49 - Type 2 diabetes mellitus with other diabetic neurological complication (3) Insulin dependent diabetes mellitus: (4) HTN (hypertension): CODE(S): I10 - Essential (primary) hypertension QUALIFIERS: Hypertension type: primary hypertension Qualified Code(s): I10 - Essential (primary) hypertension (5) Hyperlipidemia: CODE(S): E78.5 - Hyperlipidemia, unspecified QUALIFIERS: Hyperlipidemia type: unspecified Qualified Code(s): E78.5 - Hyperlipidemia, unspecified (6) PVD (peripheral vascular disease): CODE(S): I73.9 - Peripheral vascular disease, unspecified (7) PAD (peripheral artery disease): CODE(S): I73.9 - Peripheral vascular disease, unspecified (8) Venous insufficiency of both lower extremities: CODE(S): I87.2 - Venous insufficiency (chronic) (peripheral) (9) Ulcer of right deluna with fat layer exposed: CODE(S): L97.812 - Non-pressure 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 At home wound-care instructions: The patient will continue to wash with antibacterial soap and water and then will apply Hydrogel to the wound bed of right deluna ulcer and cover with ABD and roll gauze changed daily. Left plantar ulcer will be dressed Fibracol and covered with gauze. Keep dressing clean and dry. Off-loading: The patient was instructed to avoid pressure and friction on the affected areas. Reposition every 2 hours at minimum. Avoid prolonged standing and/or dangling of legs. When seated, feet should be elevated at chest level. Frequent ambulation is encouraged. Diet: Patient encouraged to increase protein intake while taking caution to avoid high carbohydrate and/or sugar intake. Labs/cultures/imaging: Culture was positive for Klebsiella, Staph aureus and Strep B agalactiae and he completed Ciprofloxacin but did not take cefdinir due to not being able to afford medication. Wound culture taken today and will treat based on results. Follow-up: Return in 2 weeks for wound care follow up. Return sooner or report to the emergency room should symptoms worsen, or new symptoms arise. Note: [employer] speech recognition auto camp attendant software was used to create portions of this document. Sound-alike and misspelled words, as well as other auto camp attendant errors may be contained in the documentation.
--- NOTE | 2025-04-02 11:56 | WC ---
PHOTO 03/30/25 RIGHT SHARP
--- NOTE | 2025-04-02 11:57 | WC ---
PHOTO 03/30/25 RIGHT SHARP
--- NOTE | 2025-04-02 11:59 | WC ---
PHOTO 03/30/25 LEFT [facility] FOOT
[2025-04-13 09:46] VITALS: BP 145/82; PULSE 74; RESP 18; TEMP 35.6
--- NOTE | 2025-04-13 14:07 | PCM.WC.PN ---
History of Present Illness Date of Service: 04/13/25 Chief Complaint: Left arch plantar ulcer, right deluna History of Wound: David is a 54 year old male that presents to the wound center for evaluation and treatment of an ulcer of his left foot. The ulcer appeared approximately a month ago. He took his shoe off after work and his sock was bloody and soaked with drainage and there was a blister that had broke open. He has been applying gauze and washing with soap daily to treat the ulcer but it has not improved. He has not been on any antibiotics recently. He denies systemic symptoms such as fever, chills, erythema, odor. 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 His last A1C was 10/2024 and was 13.6 %. He is a very poorly controlled diabetic on insulin. He does not have diabetic shoes. He does see Dr. Ozuna for podiatry for diabetic foot exams. 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 He also had repeat venous testing 04/08/23 which showed incompetence and vascular surgery was considered but was not done at that time. He has not been able to place compression because he is unable to bend to pull on compression stockings due to arthritis in his back. He is not able to wrap with RADHA bandages either. Circaids were tried previously but he was unable to do this as well. He has been wearing tubigrips for compression. He states he still has issues getting them on at times when his back is flared up. He has chronic lymphedema. Subjective Subjective Kian returns today for treatment of his right deluna ulcer and left plantar arch of his foot. Drainage has ceased. He denies increased pain, odor or drainage. Objective Data Objective Data Vital Signs: Vital Signs Temp Pulse Resp BP O2 Del Method 96.0 F L 74 18 145/82 H Room Air 04/13/25 09:46 04/13/25 09:46 04/13/25 09:46 04/13/25 09:46 04/13/25 09:46 Oxygen Delivery Method Room Air Lab / Micro Data Micro: Microbiology 03/30/25 10:24 Wound - Left Foot Gram Stain - Final 05/09/25 10:24 Wound - Left Foot Wound Culture - Final Streptococcus agalactiae (B) Staphylococcus aureus 03/30/25 10:24 Wound - Left Foot Anaerobic Culture - Final No anaerobic bacteria isolated. Social Homelessness:: Sheltered Physical Exam Const alert, oriented x3 and no apparent distress General Appearance: cooperative and comfortable Nutritional Appearance: obese HEENT normocephalic and head/scalp atraumatic Resp normal respiratory effort Effort and Inspection: able to speak in complete sentences Cardio regular rate and regular rhythm Extremity General Extremity: edema bilateral lower extremity Details: trace Skin Wounds: wounds noted Wound Narrative: as in clinical panel, no surrounding erythema or cellulitis, no odor, minimal slough Psych mental status grossly normal, thought process normal, cooperative and affect normal Debridement Note Debridement Note Wound debrided: left plantar arch ulcer Laterality: Left No debridement was completed: No debridement was completed today (ulcer is healed) Post-Debridement Measurements and Additional Note: Post-Debridement Measurements/Treatment DESMOND - Nurse 1 - General Ulcer Assessment Start: 03/30/25 09:59 Freq: Status: Active Protocol: MART Activity Type Activity Date Activity User E-sign Co-sign Detail Recorded Client Recorded Date Recorded By Document 03/30/25 09:59 [id number] 03/30/25 10:05 Document 04/13/25 09:46 [id number] 04/13/25 09:47 03/30/25 04/13/25 09:59 09:46 - Today's Visit Information Type of service Follow-up Visit Follow-up Visit (Physician/DATA INTEGRATION DEVELOPER (Physician/DATA INTEGRATION DEVELOPER ) ) Arrival Mode Ambulatory Ambulatory Patient Identification Verified (Name & Yes Yes ) Vital Signs Temperature (97.8 F-99.1 F) 96.0 F L Temperature Source Temporal Temporal Pulse Rate (60-100) 74 Pulse Location Monitor Monitor Respiratory Rate (12-18) 16 18 Respiratory rate source Observation Observation Oxygen Delivery Method Room Air Room Air Blood Pressure (90/60-120/80) 145/82 H Blood Pressure Mean (mm Hg) 103 Source Monitor Monitor Position Semi-Fowlers Semi-Fowlers Blood Pressure Location Left Arm Left Arm History Since Last Visit- (Skip if this is Patient's initial visit) Have you changed medications since your No No last visit? Any new allergies or adverse reactions No No Had a fall/change in ADL's that may No No increase risk of falls Signs or symptoms of abuse and/or No No neglect since last visit Have you been in the hospital since your No No last visit? Has dressing in place as prescribed Yes Yes Has compression in place as prescribed N/A No Has offloadiing in place as prescribed N/A N/A Experienced any changes in pain level or No No management Left Footwear Regular Shoe Regular Shoe Right Footwear Regular Shoe Regular Shoe Pain Scale: 0-10 Numeric Is Patient Pain Free? Yes Yes WC - Nurse 1 - General Ulcer Measurement Start: 03/30/25 09:59 Freq: Status: Active Protocol: Activity Type Activity Date Activity User E-sign Co-sign Detail Recorded Client Recorded Date Recorded By Document 03/30/25 09:59 KW [id number] 03/30/25 10:05 KW Document 04/13/25 09:46 KW [id number] 04/13/25 09:47 KW 03/30/25 04/13/25 09:59 09:46 Wound Center Nurse 1 #14 RIGHT DELUNA -Current Size (cm) - Length 5.5 0.1 -Current Size (cm) - Width 1 0.1 -Current Size (cm) - Depth 0.1 0 -Total Square Cm 5.5 0.01 -Date of Last Picture (Recall this 03/30/25 field) -Exudate Amt Medium -Exudate Type Serosanguineous -Wound Margin Distinct, Outline Attached -Granulation Amt Large (67-100%) None Present (0 %) -Granulation Quality Red -Texture (Milly-wound Skin Appearance) Assessed Assessed -Moisture (Milly-wound Skin Appearance) Assessed Assessed -Color (Milly-wound Skin Appearance) Assessed Assessed -Temperature (Milly-wound Skin No Abnormality No Abnormality Appearance) (Pt Warm) (Pt Warm) -Tenderness on Palpation (Milly-wound No No Skin Appearance) -Ulcer Cleansing Rinsed/ Rinsed/ Irrigated with Irrigated with Saline Saline -Foul Odor after Cleansing No No -Anesthetic Used 5% Lidocaine Gel -Wound Comment(s) scabbed #13 LT MED FOOT -Current Size (cm) - Length 1 0.1 -Current Size (cm) - Width 1 0.1 -Current Size (cm) - Depth 0.1 0 -Total Square Cm 1 0.01 -Date of Last Picture (Recall this 05/09/25 field) -Exudate Amt Small None Present -Exudate Type Serosanguineous -Wound Margin Distinct, Outline Attached -Granulation Amt Medium (34-66%) -Granulation Quality [place] -Necrosis Amt Medium (34-66%) -Necrotic Tissue Type Adherent Slough -Texture (Milly-wound Skin Appearance) Assessed,Callus Assessed,Callus -Moisture (Milly-wound Skin Appearance) Assessed Assessed -Color (Milly-wound Skin Appearance) Assessed Assessed -Temperature (Milly-wound Skin No Abnormality No Abnormality Appearance) (Pt Warm) (Pt Warm) -Tenderness on Palpation (Milly-wound No No Skin Appearance) -Ulcer Cleansing Rinsed/ Rinsed/ Irrigated with Irrigated with Saline Saline -Foul Odor after Cleansing No No -Anesthetic Used 5% Lidocaine 5% Lidocaine Gel Gel WC - Nurse 2 - General Ulcer CM Notes Start: 03/30/25 09:59 Freq: Status: Active Protocol: Activity Type Activity Date Activity User E-sign Co-sign Detail Recorded Client Recorded Date Recorded By Document 03/30/25 10:12 [id number] 03/30/25 10:22 Document 04/13/25 10:01 [id number] 04/13/25 10:03 03/30/25 04/13/25 10:12 10:01 Wound Center Nurse 2 #14 RIGHT DELUNA -Time 10:13 10:02 -Correct Patient Yes Yes -Correct Side, Site, Position Yes Yes -Correct Procedure Yes No -Procedure Performed Yes No -Type of Procedure Debridement -Clinical Debridement Subcutaneous -Tissue Removed Subcutaneous -Post Debridement (cm) - Length 1.4 -Post Debridement (cm) - Width 1.1 -Post Debridement (cm) - Depth 0.1 -Total Square (Post) (cm) 1.54 -Area of Debridement (cm) - Length 1.4 -Area of Debridement (cm) - Width 1.1 -Total Square (Area) (cm) 1.54 -Tunneling No No -Undermining/Tunneling No No -Circular Undermining No No -Wound/Ulcer Outcome Not Healed Healed- Epithelialized -Ulcer Cleansing Rinsed/ Not Cleansed Irrigated with Saline -Foul Odor after Cleansing No No -Bioengineered Tissue No No -Bleeding Controlled with Pressure NA -Treatment Response Procedure Tolerated Well -Offloading No No -Debridement - Subq, 1st 20sq cm No #13 LT MED FOOT -Time 10:13 10:02 -Correct Patient Yes Yes -Correct Side, Site, Position Yes Yes -Correct Procedure Yes No -Procedure Performed Yes No -Type of Procedure Debridement -Clinical Debridement Subcutaneous -Tissue Removed Subcutaneous -Post Debridement (cm) - Length 0.7 -Post Debridement (cm) - Width 0.8 -Post Debridement (cm) - Depth 0.1 -Total Square (Post) (cm) 0.56 -Area of Debridement (cm) - Length 0.7 -Area of Debridement (cm) - Width 0.8 -Total Square (Area) (cm) 0.56 -Tunneling No No -Undermining/Tunneling No No -Circular Undermining No No -Wound/Ulcer Outcome Not Healed Healed- Epithelialized -Ulcer Cleansing Rinsed/ Not Cleansed Irrigated with Saline -Foul Odor after Cleansing No No -Bioengineered Tissue No No -Bleeding Controlled with Pressure NA -Treatment Response Procedure Tolerated Well -Offloading No No -Debridement - Subq, 1st 20sq cm Yes Pain Scale: 0-10 Numeric Is Patient Pain Free? Yes Yes - Nurse 3 - General Ulcer D/C NN Start: 03/30/25 09:59 Freq: Status: Active Protocol: Activity Type Activity Date Activity User E-sign Co-sign Detail Recorded Client Recorded Date Recorded By Document 03/30/25 10:34 KW [id number] 03/30/25 10:35 KW Document 04/13/25 10:18 DS [id number] 04/13/25 10:20 DS 03/30/25 04/13/25 10:34 10:18 Wound Care Center Nurse 3 #14 RIGHT DELUNA -Primary Dressing Applied C Hydrogel -Other Dressing hydrogel -Primary Dressing Covered/Secured with Dry Gauze & Dry Gauze, Roll Gauze, Secured with Secured with Tape Tape -Hydrogel 0 -Wound Comment(s) healed #13 LT MED FOOT -Primary Dressing Applied Fibracol Plus C Hydrogel 4x4 -Primary Dressing Covered/Secured with Dry Gauze, Dry Gauze, Secured with Secured with Tape Tape -Fibracol Plus 4x4 1 -Hydrogel 0 -Wound Comment(s) Healed Pain Scale: 0-10 Numeric Is Patient Pain Free? 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: CODE(S): E11.49 - Type 2 diabetes mellitus with other diabetic neurological complication (3) Insulin dependent diabetes mellitus: (4) HTN (hypertension): CODE(S): I10 - Essential (primary) hypertension QUALIFIERS: Hypertension type: primary hypertension Qualified Code(s): I10 - Essential (primary) hypertension (5) Hyperlipidemia: CODE(S): E78.5 - Hyperlipidemia, unspecified QUALIFIERS: Hyperlipidemia type: unspecified Qualified Code(s): E78.5 - Hyperlipidemia, unspecified (6) PVD (peripheral vascular disease): CODE(S): I73.9 - Peripheral vascular disease, unspecified (7) PAD (peripheral artery disease): CODE(S): I73.9 - Peripheral vascular disease, unspecified (8) Venous insufficiency of both lower extremities: CODE(S): I87.2 - Venous insufficiency (chronic) (peripheral) (9) Ulcer of right deluna with fat layer exposed: CODE(S): L97.812 - Non-pressure chronic ulcer of other part of right lower leg with fat layer exposed PLAN: Plan Evaluation performed today in clinic as annotated above. At home wound-care instructions: The patient will continue to wash with antibacterial soap and water and pad and protect the healed ulcer sites. Off-loading: The patient was instructed to avoid pressure and friction on the affected areas. Reposition every 2 hours at minimum. Avoid prolonged standing and/or dangling of legs. When seated, feet should be elevated at chest level. Frequent ambulation is encouraged. Diet: Patient encouraged to increase protein intake while taking caution to avoid high carbohydrate and/or sugar intake. Labs/cultures/imaging: Culture was positive for Klebsiella, Staph aureus and Strep B agalactiae and he completed Ciprofloxacin but did not take cefdinir due to not being able to afford medication. Wound culture taken today and will treat based on results. Follow-up: He will be discharged from treatment. He was advised to call or report to the emergency room should symptoms worsen, or new symptoms arise. Note: [employer] speech recognition hand tire trimmer software was used to create portions of this document. Sound-alike and misspelled words, as well as other hand tire trimmer errors may be contained in the documentation.
== END 2025-04-19 14:45 | disposition home or self-care (01) ==
LOC: WC 09:45
PROVIDERS: PCP Family Medicine; Referring Provider Family Medicine; Visit Provider Family Medicine
DX: E11.621 Type 2 diabetes mellitus with foot ulcer (principal); L97.812 Non-pressure chronic ulcer of other part of right lower leg with fat layer exposed; E11.65 Type 2 diabetes mellitus with hyperglycemia; Z79.4 Long term (current) use of insulin; E11.51 Type 2 diabetes mellitus with diabetic peripheral angiopathy without gangrene; E11.49 Type 2 diabetes mellitus with other diabetic neurological complication; E11.59 Type 2 diabetes mellitus with other circulatory complications; I87.2 Venous insufficiency (chronic) (peripheral); E78.5 Hyperlipidemia, unspecified; I10 Essential (primary) hypertension; I89.0 Lymphedema, not elsewhere classified
CPT/HCPCS: 11042; 87070; 87075; 87077; 87186; 87205; 99213; G0463

== ENCOUNTER → 2025-05-08 | Outpatient (CLI) | payer OTHER, SELFPAY ==
--- NOTE | 2025-05-08 09:39 | RAD_ITS ---
PROCEDURE: FOOT MIN 3 VIEWS 05/08/2025 REASON FOR EXAM: R FOOT DECUBITUS ULCER TECHNIQUE: FOOT MIN 3 VIEWS COMPARISON: None FINDINGS: Bones: Sclerotic tarsal bones. Joints: Degenerative changes of the proximal to distal tarsal joints as well as tarsometatarsal joints with sclerosis and deformity suggestive of Charcot's deformity. Deformity of the base of the 5th metatarsal suggestive of an old fracture. Soft tissues: Soft tissue swelling. Other: Calcaneal spur. RAD/Foot min 3 Views IMPRESSION: Findings in keeping with Charcot deformity as described. Reading Location: [place] [id number]
== END | disposition home or self-care (01) ==
LOC: MTRAD 09:34
PROVIDERS: PCP Family Medicine; Referring Provider Physician Assistant; Visit Provider Physician Assistant
DX: L89.899 Pressure ulcer of other site, unspecified stage (principal)
CPT/HCPCS: 73630; 87070; 87075; 87077; 87186; 87205

== ENCOUNTER 2025-05-18 08:30 | Outpatient (RCR) | payer OTHER, SELFPAY ==
[2025-05-11 08:19] VITALS: BP 182/83; PULSE 66; RESP 18; TEMP 36.1; BMI 32.0
--- NOTE | 2025-05-11 09:27 | HP.PCM_ITS ---
History of Present Illness Date of Service: 05/11/25 Chief Complaint: right lateral plantar ulcer, right deluna History of Wound: David is a 54 year old male that presents to the wound center for evaluation and treatment of an ulcer of his right foot. The ulcer appeared approximately a week ago. He noticed blood coming from his shoe and there was a blister that had broken open. He has been applying gauze and washing with soap daily to treat the ulcer and was seen at urgent care and started on doxycycline. A wound culture was taken and results showed multiple bacteria with Pseudomonas, Staph and Strep. Anaerobic culture is still pending. He denies systemic symptoms such as fever, chills, erythema, odor. He is struggling financially to afford supplies, medications and taking care of his home and financial responsibilities. 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 His last A1C was 01/2025 and was 13.2 %. He is a very poorly controlled diabetic on insulin. He does not have diabetic shoes. He does see Dr. Ozuna for podiatry for diabetic foot exams. 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 He also had repeat venous testing 04/08/23 which showed incompetence and vascular surgery was considered but was not done at that time. He has not been able to place compression because he is unable to bend to pull on compression stockings due to arthritis in his back. He is not able to wrap with RADHA bandages either. Circaids were tried previously but he was unable to do this as well. He has been wearing tubigrips for compression. He states he still has issues getting them on at times when his back is flared up. He has chronic lymphedema. [facility] Medical History Decubitus ulcer of right foot Lumbar strain Right shoulder strain Contusion of right knee Contusion of left knee Carpal tunnel syndrome Traumatic closed nondisplaced fracture of one rib of left side High cholesterol Diabetes Hypertension Home Medications Medication Instructions Recorded Last Taken Type amlodipine 5 mg tablet 5 mg PO DAILY 05/26/18 Unkno wn History losartan 25 mg tablet 25 mg PO DAILY 05/26/18 Unkn own History metoprolol tartrate 25 mg tablet 25 mg PO BID 05/26/18 Unknown History Lasix 40 mg PO BID 10/07/18 Unknow n History Potassium Chloride 10 meq PO DAILY 10/07/18 Unk nown History Simvastatin 40 mg PO QHS 10/07/18 Unknow n History ibuprofen 600 mg tablet 600 mg PO Q8H PRN PRN pain # 20 10/28/24 Unknown Rx TABLETS alendronate 70 mg tablet 70 mg PO QWEEK 11/06/24 Unkn own History cholecalciferol (vitamin D3) 1,250 1,250 mcg PO QWEEK 11/06/24 Unknown History mcg (50,000 unit) capsule insulin regular hum U-500 conc 500 100 unit (0.2 mL) s ubcut TIDWMEAL 11/06/24 Unknown Rx unit/mL(3 mL) subcut pen (Humulin #18 mL R U-500 (Conc) Insulin Kwikpen) sertraline 100 mg tablet 100 mg PO QDAY 11/06/24 Unkn own History testosterone 1.62 % (20.25 mg/1.25 1 packet transderma l QDAY 11/06/24 Unknown History gram) transdermal gel packet tirzepatide 5 mg/0.5 mL 5 mg (0.5 mL) subcut QWEEK # 2 mL 02/05/25 Unknown Rx subcutaneous pen injector (Melody) doxycycline monohydrate 100 mg 100 mg PO BID #20 caps 05/08/25 Unknown Rx capsule ciprofloxacin HCl 500 mg tablet 500 mg PO BID #20 tabs 05/11/25 Unknown Rx linezolid 600 mg tablet 600 mg PO BID #20 tabs 05/11 Unknown Rx Allergy/AdvReac Type Severity Reaction Status Date / Time liraglutide (From Victoza) Allergy Rash Verified 05/08/25 09:24 metformin (From Glucophage) Allergy Rash Verified 05/08/25 09:24 Penicillins (PCN) Allergy Rash Verified 05/08/25 09:24 Sulfa (Sulfonamide Allergy Rash Verified 05/08/25 09:24 Antibiotics) Family History Other Alcoholism Arthritis CVA (cerebral vascular accident) Cancer Depression Diabetes Heart disease High cholesterol Hypertension Thyroid disorder Surgical History of foot surgery Social History Smoking Status: Never smoker ROS Constitutional Constitutional: Denies chills, fatigue or fever(s) Eyes Eyes: Denies blurry vision, change in vision or loss of vision ENT HEENT: Denies dysphagia, hearing loss or sore throat Cardiovascular Cardiovascular: Denies chest pain, edema or palpitations Respiratory/Chest Respiratory/Chest: Denies dry cough, dyspnea, dyspnea on exertion, productive cough or wheezing Gastrointestinal Gastrointestinal: Denies diarrhea, nausea or vomiting Genitourinary Genitourinary: Denies dysuria or polyuria Musculoskeletal Musculoskeletal: Denies arthralgias, joint stiffness or muscle weakness Integumentary Integumentary: Reports erythema and wounds Neurologic Neurologic: Denies dizziness, memory loss or weakness Psychiatric Psychiatric: Denies homicidal ideation or suicidal ideation Endocrine Endocrinology: Denies polydipsia, polyphagia or polyuria Hematologic/Lymphatic Hematologic/Lymphatic: Denies easy bleeding or easy bruising Allergic/Immunologic Allergic/Immunologic: Denies throat swelling, tongue swelling or urticaria Vital Signs Vital Signs Vital Signs: 05/11/25 08:19 Temperature 97 F L Temperature Source Temporal Pulse Rate 66 Respiratory Rate 18 Blood Pressure 182/83 H Blood Pressure Mean 116 Blood Pressure Source Monitor Blood Pressure Position Semi-Fowlers Blood Pressure Location Left Arm Weight Weight: 116.12 kg Body Mass Index (BMI) 32.0 Physical Exam Const alert, oriented x3 and no apparent distress General Appearance: cooperative and comfortable HEENT normocephalic and head/scalp atraumatic Resp normal respiratory effort Effort and Inspection: able to speak in complete sentences Cardio regular rate and regular rhythm Skin Wounds: wounds noted Wound Narrative: as in clinical panel There was greenish eschar at distal part of ulcer that was debrided and callus and devitalized skin from blister that all were debrided with edges beveled to eliminate any rolled edge formation. Psych mental status grossly normal, thought process normal, cooperative and affect normal Debridement Note Debridement Note Wound debrided: right plantar ulcer Laterality: Right Type of Debridement: Excisional debridement Anesthesia Used: 4% Lidocaine Solution and 5% Lidocaine Gel Depth: Down to and including healthy tissue and in the subcutaneous layer Percentage of wound debrided: 100 Instrument Used: #15 blade and Forceps Tissue Removed: Yellow slough, devitalized tissue Severity: Fat Layer Exposed Amount of bleeding with debridement: Mild Bleeding Controlled with: Compression and gauze Patient tolerated procedure: Patient tolerated procedure well Post-Debridement Measurements and Additional Note: Post-Debridement Measurements/Treatment - Nurse 1 - General Ulcer Assessment Start: 05/11/25 08:19 Freq: Status: Active Protocol: [email or web address].LOWEXT Activity Type Activity Date Activity User E-sign Co-sign Detail Recorded Client Recorded Date Recorded By Document 05/11/25 08:19 JOSE ALFREDO [id number] 05/11/25 08:27 JOSE ALFREDO 05/11/25 08:19 - Today's Visit Information Type of service Follow-up Visit (Physician/[employer] ) Arrival Mode Ambulatory Transfer Assistance None Patient Identification Verified (Name & Yes ) Patient Requires Transmission-Based No Precautions Height and Weight Height 6 ft 3 in Weight 116.12 kg Weight in Pounds 256.0 lbs Body Mass Index (BMI) 32.0 BMI Classification Obese Vital Signs Temperature (97.8 F-99.1 F) 97 F L Temperature Source Temporal Pulse Rate (60-100) 66 Pulse Location Monitor Respiratory Rate (12-18) 18 Respiratory rate source Observation Blood Pressure (90/60-120/80) 182/83 H Blood Pressure Mean 116 Source Monitor Position Semi-Fowlers Blood Pressure Location Left Arm History Since Last Visit- (Skip if this is Patient's initial visit) Have you changed medications since your No last visit? Any new allergies or adverse reactions No Had a fall/change in ADL's that may No increase risk of falls Signs or symptoms of abuse and/or No neglect since last visit Have you been in the hospital since your No last visit? Has dressing in place as prescribed Yes Has compression in place as prescribed N/A Has offloadiing in place as prescribed N/A Experienced any changes in pain level or No management Left Footwear Regular Shoe Right Footwear Regular Shoe Pain Scale: 0-10 Numeric Is Patient Pain Free? No R foot -Description Aching -Intensity 2 -Duration (hours) Acute -Pain Behavior No Change in Behavior -Pain Aggravating Factors ADL's -Alleviating Factors/Interventions None Lower Extremity Assessment/ Foot Assessment/ Toe Nail Assessment Right -Posterior Tibial Palpable Yes -Dorsalis Pedis Palpable Yes -Extremity Color Normal -Hair Growth on Legs No -Hair Growth on Toes No -Temperature of Extremity Warm -Capillary Refill Less than 3 Seconds -Dependent Rubor No -Blanched when Elevated No -Lipodermatosclerosis No -Other Deformity No -Prior Foot Ulcer No -Charcot Joint No -Prior Amputation No -Thick Yes -Discolored Yes -Deformed Yes -Improper Length & Hygeine No Left -Posterior Tibial Palpable Yes -Dorsalis Pedis Palpable Yes -Extremity Color Normal -Hair Growth on Legs No -Hair Growth on Toes No -Temperature of Extremity Warm -Capillary Refill Less than 3 Seconds -Dependent Rubor No -Blanched when Elevated No -Lipodermatosclerosis No -Other Deformity No -Prior Foot Ulcer No -Charcot Joint No -Prior Amputation No -Thick Yes -Discolored Yes -Deformed Yes -Improper Length & Hygeine No Neuropathy Assessment Feet - Top Side and Bottom <Entered> (a) Teaching Assessment Preferences Verbal,Written, Demonstration Barriers to Learning None Readiness To Learn Good Willingness to Engage in Self Management Med Activies Readiness to Engage in Self Management Med Activities Anxiety Level Calm Cooperation Cooperative Perception Coherent Interest in Health Problem Asks Questions Education Importance Acknowledges Need Does Patient Smoke tobacco or other No substances Smoking Status Never smoker Is Patient Diabetic Yes Functional Assessment Recent Decline in Ability to Perform Denies Any Declines Assistive Device With Patient No Culture/Samaritan/Hearing Aid Repair Technician Cultural/Samaritan Needs that may affect No Treatment Plan Would you allow our hospital latin american studies professor to No meet you for the purpose of spiritual/ emotional support? Hearing Aid Repair Technician to contact place of quaker No Teaching: Wound Center Lymphedema pumps -Person Taught Patient -Teaching Method Discussion, Demonstration -Response to teaching Verbalize Understanding (a) 1 - - throughout 2 - + throughout WC - Nurse 1 - General Ulcer Measurement Start: 05/11/25 08:19 Freq: Status: Active Protocol: Activity Type Activity Date Activity User E-sign Co-sign Detail Recorded Client Recorded Date Recorded By Document 05/11/25 08:19 RB [id number] 05/11/25 08:27 RB 05/11/25 08:19 Wound Center Nurse 1 16. RLE deluna -Combined with other wound No -Current Size (cm) - Length 1.8 -Current Size (cm) - Width 2 -Current Size (cm) - Depth 0.1 -Total Square Cm 3.6 -Photo Taken Yes -Tunneling No -Undermining/Tunneling No -Circular Undermining No -Exudate Amt Medium -Exudate Type Serosanguineous -Wound Margin Distinct, Outline Attached -Granulation Amt Medium (34-66%) -Granulation Quality Bena -Slough/Fibrin Yes -Necrosis Amt Medium (34-66%) -Necrotic Tissue Type Adherent Slough -Structure Exposed N/A -Texture (Milly-wound Skin Appearance) Assessed -Moisture (Milly-wound Skin Appearance) Assessed -Color (Milly-wound Skin Appearance) Assessed, Hemosiderin Staining -Temperature (Milly-wound Skin No Abnormality Appearance) (Pt Warm) -Tenderness on Palpation (Milly-wound No Skin Appearance) -Ulcer Cleansing Wound Cleanser -Foul Odor after Cleansing No -Anesthetic Used 5% Lidocaine Gel 15. R plantar -Combined with other wound No -Current Size (cm) - Length 11.5 -Current Size (cm) - Width 7 -Current Size (cm) - Depth 0.1 -Total Square Cm 80.5 -Photo Taken Yes -Tunneling No -Undermining/Tunneling No -Circular Undermining No -Exudate Amt Large -Exudate Type Serosanguineous -Wound Margin Distinct, Outline Attached -Granulation Amt Medium (34-66%) -Granulation Quality Bena -Slough/Fibrin Yes -Necrosis Amt Medium (34-66%) -Necrotic Tissue Type Adherent Slough -Structure Exposed N/A -Texture (Milly-wound Skin Appearance) Assessed,Callus -Moisture (Milly-wound Skin Appearance) Assessed -Color (Milly-wound Skin Appearance) Assessed -Temperature (Milly-wound Skin No Abnormality Appearance) (Pt Warm) -Tenderness on Palpation (Milly-wound No Skin Appearance) -Ulcer Cleansing Wound Cleanser -Foul Odor after Cleansing No -Anesthetic Used 5% Lidocaine Gel Lower Limb Edema Present Yes Right Calf (cm) 40.8 Right Ankle (cm) 25.6 Left Calf (cm) 38 Left Ankle (cm) 21.6 WC - Nurse 2 - General Ulcer CM Notes Start: 05/11/25 08:19 Freq: Status: Active Protocol: Activity Type Activity Date Activity User E-sign Co-sign Detail Recorded Client Recorded Date Recorded By Document 05/11/25 08:50 GM [id number] 05/11/25 09:20 GM 05/11/25 08:50 Wound Center Nurse 2 16. RLE deluna -Time 08:50 -Correct Patient Yes -Correct Side, Site, Position Yes -Correct Procedure Yes -Procedure Performed Yes -Type of Procedure Debridement -Clinical Debridement Subcutaneous -Tissue Removed Subcutaneous -Post Debridement (cm) - Length 1.8 -Post Debridement (cm) - Width 2.0 -Post Debridement (cm) - Depth 0.1 -Total Square (Post) (cm) 3.60 -Area of Debridement (cm) - Length 1.8 -Area of Debridement (cm) - Width 2.0 -Total Square (Area) (cm) 3.60 -Tunneling No -Undermining/Tunneling No -Circular Undermining No -Wound/Ulcer Outcome Not Healed -Ulcer Cleansing Rinsed/ Irrigated with Saline -Foul Odor after Cleansing No -Bioengineered Tissue No -Bleeding Controlled with Pressure -Treatment Response Procedure Tolerated Well -Offloading No -Debridement - Subq, 1st 20sq cm No 15. R plantar -Time 08:51 -Correct Patient Yes -Correct Side, Site, Position Yes -Correct Procedure Yes -Procedure Performed Yes -Type of Procedure Debridement -Clinical Debridement Subcutaneous -Tissue Removed Subcutaneous -Post Debridement (cm) - Length 12.5 -Post Debridement (cm) - Width 5.3 -Post Debridement (cm) - Depth 0.1 -Total Square (Post) (cm) 66.25 -Area of Debridement (cm) - Length 12.5 -Area of Debridement (cm) - Width 5.3 -Total Square (Area) (cm) 66.25 -Tunneling No -Undermining/Tunneling No -Circular Undermining No -Wound/Ulcer Outcome Not Healed -Ulcer Cleansing Rinsed/ Irrigated with Saline -Foul Odor after Cleansing No -Bioengineered Tissue No -Bleeding Controlled with Pressure -Treatment Response Procedure Tolerated Well -Offloading No -Debridement - Subq, 1st 20sq cm Yes -Debridement, SubQ, ea addt'l 20sq cm 3 or part thereof Pain Scale: 0-10 Numeric Is Patient Pain Free? Yes Additional Wound Wound debrided: right deluna Laterality: Right Type of Debridement: Excisional debridement Anesthesia Used: 4% Lidocaine Solution and 5% Lidocaine Gel Depth: Down to and including healthy tissue and in the subcutaneous layer Percentage of wound debrided: 100 Instrument Used: 5mm curette Tissue Removed: Yellow slough, devitalized tissue Severity: Fat Layer Exposed Amount of bleeding with debridement: Mild Bleeding Controlled with: Compression and gauze Patient tolerated procedure: Patient tolerated procedure well Assessment/Plan Assessment/Plan (1) Decubitus ulcer of right foot: CODE(S): L89.899 - Pressure ulcer of other site, unspecified stage QUALIFIERS: Pressure injury stage: stage 2 Qualified Code(s): L 89.892 - Pressure ulcer of other site, stage 2 (2) Ulcer of right deluna with fat layer exposed: CODE(S): L97.812 - Non-pressure chronic ulcer of other part of right lower leg with fat layer exposed (3) Diabetic foot ulcer associated with type 2 diabetes mellitus, with fat layer exposed: CODE(S): E11.621 - Type 2 diabetes mellitus with foot ulcer; L97.502 - Non-pressure chronic ulcer of other part of unspecified foot with fat layer exposed QUALIFIERS: Diabetic foot ulcer location: midfoot Laterality: left Qualified Code(s): E11.621 - Type 2 diabetes mellitus with foot ulcer; L97.422 - Non-pressure chronic ulcer of left heel and midfoot with fat layer exposed (4) Diabetes: CODE(S): E11.9 - Type 2 diabetes mellitus without complications QUALIFIERS: Diabetes mellitus complication status: with hyperglycemia Diabetes mellitus group home insulin use: with marine oil terminal superintendent use Diabetes mellitus type: type 2 Qualified Code(s): E11.65 - Type 2 diabetes mellitus with hyperglycemia; Z79.4 - long-term (current) use of insulin (5) Uncontrolled diabetes mellitus: QUALIFIERS: Diabetes mellitus type: type 2 Glycemic state: with hyperglycemia Qualified Code(s): E11.65 - Type 2 diabetes mellitus with hyperglycemia (6) Diabetes mellitus type 2 with neurological manifestations: CODE(S): E11.49 - Type 2 diabetes mellitus with other diabetic neurological complication (7) Insulin dependent diabetes mellitus: (8) HTN (hypertension): CODE(S): I10 - Essential (primary) hypertension QUALIFIERS: Hypertension type: primary hypertension Qualified Code(s): I10 - Essential (primary) hypertension (9) Hyperlipidemia: CODE(S): E78.5 - Hyperlipidemia, unspecified QUALIFIERS: Hyperlipidemia type: unspecified Qualified Code(s): E78.5 - Hyperlipidemia, unspecified (10) PVD (peripheral vascular disease): CODE(S): I73.9 - Peripheral vascular disease, unspecified (11) PAD (peripheral artery disease): CODE(S): I73.9 - Peripheral vascular disease, unspecified (12) Venous insufficiency of both lower extremities: CODE(S): I87.2 - Venous insufficiency (chronic) (peripheral) (13) Diabetic ulcer of right foot associated with diabetes mellitus due to underlying condition, with fat layer exposed: CODE(S): E08.621 - Diabetes mellitus due to underlying condition with foot ulcer; L97.512 - Non-pressure chronic ulcer of other part of right foot with fat layer exposed (14) Obesity: CODE(S): E66.9 - Obesity, unspecified QUALIFIERS: Obesity type: due to excess calories Obesity classification: adult class 1 (BMI 30 - 34.9) Serious obesity comorbidity presence: with serious comorbidity Body mass index: BMI 31.0-31.9 Qualified Code(s): E66.811 - Obesity, class 1; E66.09 - Other obesity due to excess calories; Z68.31 - Body mass index [BMI] 31.0-31.9, adult PLAN: Plan Evaluation and debridement performed today in clinic as annotated above. At home wound-care instructions: He will dress ulcers daily with Aquacel Ag, gauze or ABD after washing with surgical wash. If draining through would have him change dressings twice daily. Keep dressings dry and intact. Off-loading: The patient was instructed to avoid pressure and friction on the affected areas. Reposition every 2 hours at minimum. Avoid prolonged standing and/or dangling of legs. When seated, feet should be elevated at chest level. Frequent ambulation is encouraged. Diet: Patient encouraged to increase protein intake while taking caution to avoid high carbohydrate and/or sugar intake and try to achieve A1C if 7.5% or less. Currently 13.2% at last check. Labs/cultures/imaging: Culture results reviewed and were positive for Pseudomonas, Staph, Strep and Cornyebacteria. Anaerobic culture results are still pending. He will discontinue doxycycline and start Linezolid and Ciprofloxacin. Follow-up: Return in 1 week for wound care follow up. Return sooner or report to the emergency room should symptoms worsen, or new symptoms arise. Note: [employer] speech recognition teachers' aide software was used to create portions of this document. Sound-alike and misspelled words, as well as other teachers' aide errors may be contained in the documentation.
--- NOTE | 2025-05-11 12:43 | WC ---
PHOTO 05/11/25 RIGHT PLANTAR
--- NOTE | 2025-05-11 12:44 | WC ---
PHOTO 05/11/25 ELVIE SHARP
[2025-05-18 08:35] VITALS: BP 180/93; PULSE 86; RESP 18; TEMP 36.7; BMI 32.0
--- NOTE | 2025-05-18 13:46 | PN.PCM_ITS ---
History of Present Illness Date of Service: 05/18/25 Chief Complaint: right lateral plantar ulcer, right deluna History of Wound: David is a 54 year old male that presents to the wound center for evaluation and treatment of an ulcer of his right foot. The ulcer appeared approximately a week ago. He noticed blood coming from his shoe and there was a blister that had broken open. He has been applying gauze and washing with soap daily to treat the ulcer and was seen at urgent care and started on doxycycline. A wound culture was taken and results showed multiple bacteria with Pseudomonas, Staph and Strep. Anaerobic culture is still pending. He denies systemic symptoms such as fever, chills, erythema, odor. He is struggling financially to afford supplies, medications and taking care of his home and financial responsibilities. 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 His last A1C was 01/2025 and was 13.2 %. He is a very poorly controlled diabetic on insulin. He does not have diabetic shoes. He does see Dr. Ozuna for podiatry for diabetic foot exams. 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 He also had repeat venous testing 04/08/23 which showed incompetence and vascular surgery was considered but was not done at that time. He has not been able to place compression because he is unable to bend to pull on compression stockings due to arthritis in his back. He is not able to wrap with RADHA bandages either. Circaids were tried previously but he was unable to do this as well. He has been wearing tubigrips for compression. He states he still has issues getting them on at times when his back is flared up. He has chronic lymphedema. Subjective Subjective Kian returns today for treatment of his right deluna ulcer and right plantar ulcer. He is tolerating antibiotic treatment and dressing changes are going well. He is offloading and has not been working in order to heal his foot ulcer. He denies increased pain, odor or drainage. Objective Data Objective Data Vital Signs: Vital Signs Temp Pulse Resp BP 98.1 F 86 18 180/93 H 05/18/25 08:35 05/18/25 08:35 05/18/25 08:35 05/18/25 08:35 Weight: 116.12 kg Body Mass Index (BMI) 32.0 Physical Exam Const alert, oriented x3 and no apparent distress General Appearance: cooperative and comfortable HEENT normocephalic and head/scalp atraumatic Resp normal respiratory effort Effort and Inspection: able to speak in complete sentences Cardio regular rate and regular rhythm Skin Wounds: wounds noted Wound Narrative: as in clinical panel There was greenish eschar at distal part of ulcer that was debrided and callus and devitalized skin from blister that all were debrided with edges beveled to eliminate any rolled edge formation. Psych mental status grossly normal, thought process normal, cooperative and affect normal Debridement Note Debridement Note Wound debrided: right plantar ulcer Laterality: Right Type of Debridement: Excisional debridement Anesthesia Used: 4% Lidocaine Solution and 5% Lidocaine Gel Depth: Down to and including healthy tissue and in the subcutaneous layer Percentage of wound debrided: 100 Instrument Used: 5mm curette Tissue Removed: Yellow slough, devitalized tissue Severity: Fat Layer Exposed Amount of bleeding with debridement: Mild Bleeding Controlled with: Compression and gauze Patient tolerated procedure: Patient tolerated procedure well Post-Debridement Measurements and Additional Note: Post-Debridement Measurements/Treatment - Nurse 1 - General Ulcer Assessment Start: 05/11/25 08:19 Freq: Status: Active Protocol: MART Activity Type Activity Date Activity User E-sign Co-sign Detail Recorded Client Recorded Date Recorded By Document 05/11/25 08:19 RB [id number] 05/11/25 08:27 RB Document 05/18/25 08:35 RB [id number] 05/18/25 08:38 RB 05/11/25 05/18/25 08:19 08:35 - Today's Visit Information Type of service Follow-up Visit Follow-up Visit (Physician/MATERIALS ENGINEER (Physician/MATERIALS ENGINEER ) ) Arrival Mode Ambulatory Ambulatory Transfer Assistance None None Patient Identification Verified (Name & Yes Yes ) Patient Requires Transmission-Based No No Precautions Height and Weight Height 6 ft 3 in Weight 116.12 kg Weight in Pounds 256.0 lbs Body Mass Index (BMI) 32.0 32.0 BMI Classification Obese Obese Vital Signs Temperature (97.8 F-99.1 F) 97 F L 98.1 F Temperature Source Temporal Temporal Pulse Rate (60-100) 66 86 Pulse Location Monitor Monitor Respiratory Rate (12-18) 18 18 Respiratory rate source Observation Observation Blood Pressure (90/60-120/80) 182/83 H 180/93 H Blood Pressure Mean (mm Hg) 116 122 Source Monitor Monitor Position Semi-Fowlers Semi-Fowlers Blood Pressure Location Left Arm Left Arm History Since Last Visit- (Skip if this is Patient's initial visit) Have you changed medications since your No No last visit? Any new allergies or adverse reactions No No Had a fall/change in ADL's that may No No increase risk of falls Signs or symptoms of abuse and/or No No neglect since last visit Have you been in the hospital since your No No last visit? Has dressing in place as prescribed Yes Yes Has compression in place as prescribed N/A N/A Has offloadiing in place as prescribed N/A N/A Experienced any changes in pain level or No No management Left Footwear Regular Shoe Right Footwear Regular Shoe Pain Scale: 0-10 Numeric Is Patient Pain Free? No No R foot -Description Aching Sharp,Burning -Intensity 2 3 -Duration (hours) Acute Acute -Pain Behavior No Change in Irritability Behavior -Pain Aggravating Factors ADL's ADL's -Alleviating Factors/Interventions None Medication -Effectiveness of Alleviating Factor/ Moderately Intervention effective Lower Extremity Assessment/ Foot Assessment/ Toe Nail Assessment Right -Posterior Tibial Palpable Yes -Dorsalis Pedis Palpable Yes -Extremity Color Normal -Hair Growth on Legs No -Hair Growth on Toes No -Temperature of Extremity Warm -Capillary Refill Less than 3 Seconds -Dependent Rubor No -Blanched when Elevated No -Lipodermatosclerosis No -Other Deformity No -Prior Foot Ulcer No -Charcot Joint No -Prior Amputation No -Thick Yes -Discolored Yes -Deformed Yes -Improper Length & Hygeine No Left -Posterior Tibial Palpable Yes -Dorsalis Pedis Palpable Yes -Extremity Color Normal -Hair Growth on Legs No -Hair Growth on Toes No -Temperature of Extremity Warm -Capillary Refill Less than 3 Seconds -Dependent Rubor No -Blanched when Elevated No -Lipodermatosclerosis No -Other Deformity No -Prior Foot Ulcer No -Charcot Joint No -Prior Amputation No -Thick Yes -Discolored Yes -Deformed Yes -Improper Length & Hygeine No Neuropathy Assessment Feet - Top Side and Bottom <Entered> (a) Teaching Assessment Preferences Verbal,Written, Demonstration Barriers to Learning None Readiness To Learn Good Willingness to Engage in Self Management Med Activies Readiness to Engage in Self Management Med Activities Anxiety Level Calm Cooperation Cooperative Perception Coherent Interest in Health Problem Asks Questions Education Importance Acknowledges Need Does Patient Smoke tobacco or other No substances Smoking Status Never smoker Is Patient Diabetic Yes Functional Assessment Recent Decline in Ability to Perform Denies Any Declines Assistive Device With Patient No Culture/Druze/Optical Brightener Maker Helper Cultural/Druze Needs that may affect No Treatment Plan Would you allow our hospital end touching machine operator to No meet you for the purpose of spiritual/ emotional support? Optical Brightener Maker Helper to contact place of christian No Teaching: Wound Center Lymphedema pumps -Person Taught Patient -Teaching Method Discussion, Demonstration -Response to teaching Verbalize Understanding (a) 1 - - throughout 2 - + throughout WC - Nurse 1 - General Ulcer Measurement Start: 05/11/25 08:19 Freq: Status: Active Protocol: Activity Type Activity Date Activity User E-sign Co-sign Detail Recorded Client Recorded Date Recorded By Document 05/11/25 08:19 RB [id number] 05/11/25 08:27 RB Document 05/18/25 08:35 RB [id number] 05/18/25 08:38 RB 05/11/25 05/18/25 08:19 08:35 Wound Center Nurse 1 16. RLE deluna -Combined with other wound No No -Current Size (cm) - Length 1.8 1.8 -Current Size (cm) - Width 2 1.9 -Current Size (cm) - Depth 0.1 0.1 -Total Square Cm 3.6 3.42 -Photo Taken Yes -Tunneling No No -Undermining/Tunneling No No -Circular Undermining No No -Exudate Amt Medium -Exudate Type Serosanguineous -Wound Margin Distinct, Outline Attached -Granulation Amt Medium (34-66%) Medium (34-66%) -Granulation Quality [place] Gorham -Slough/Fibrin Yes Yes -Necrosis Amt Medium (34-66%) Small (1-33%) -Necrotic Tissue Type Adherent Slough Necrosis of Bone -Structure Exposed N/A -Texture (Milly-wound Skin Appearance) Assessed Assessed -Moisture (Milly-wound Skin Appearance) Assessed Assessed -Color (Milly-wound Skin Appearance) Assessed, Assessed, Hemosiderin Erythema Staining -Temperature (Milly-wound Skin No Abnormality No Abnormality Appearance) (Pt Warm) (Pt Warm) -Tenderness on Palpation (Milly-wound No No Skin Appearance) -Ulcer Cleansing Wound Cleanser Wound Cleanser -Foul Odor after Cleansing No No -Anesthetic Used 5% Lidocaine 5% Lidocaine Gel Gel 15. R plantar -Combined with other wound No No -Current Size (cm) - Length 11.5 11.3 -Current Size (cm) - Width 7 4.5 -Current Size (cm) - Depth 0.1 0.1 -Total Square Cm 80.5 50.85 -Photo Taken Yes -Tunneling No No -Undermining/Tunneling No No -Circular Undermining No No -Exudate Amt Large Large -Exudate Type Serosanguineous Serosanguineous -Wound Margin Distinct, Distinct, Outline Outline Attached Attached -Granulation Amt Medium (34-66%) Large (67-100%) -Granulation Quality Gorham [place]ham,Red -Slough/Fibrin Yes Yes -Necrosis Amt Medium (34-66%) Small (1-33%) -Necrotic Tissue Type Adherent Slough Adherent Slough -Structure Exposed N/A N/A -Texture (Milly-wound Skin Appearance) Assessed,Callus Assessed,Callus -Moisture (Milly-wound Skin Appearance) Assessed Assessed -Color (Milly-wound Skin Appearance) Assessed Assessed -Temperature (Milly-wound Skin No Abnormality No Abnormality Appearance) (Pt Warm) (Pt Warm) -Tenderness on Palpation (Milly-wound No No Skin Appearance) -Ulcer Cleansing Wound Cleanser Wound Cleanser -Foul Odor after Cleansing No No -Anesthetic Used 5% Lidocaine 5% Lidocaine Gel Gel Lower Limb Edema Present Yes Right Calf (cm) 40.8 Right Ankle (cm) 25.6 Left Calf (cm) 38 Left Ankle (cm) 21.6 WC - Nurse 2 - General Ulcer CM Notes Start: 05/11/25 08:19 Freq: Status: Active Protocol: Activity Type Activity Date Activity User E-sign Co-sign Detail Recorded Client Recorded Date Recorded By Document 05/11/25 08:50 [id number] 05/11/25 09:20 GM Document 05/18/25 09:24 [id number] 05/18/25 09:36 GM 05/11/25 05/18/25 08:50 09:24 Wound Center Nurse 2 16. RLE deluna -Time 08:50 09:24 -Correct Patient Yes Yes -Correct Side, Site, Position Yes Yes -Correct Procedure Yes Yes -Procedure Performed Yes Yes -Type of Procedure Debridement Debridement -Clinical Debridement Subcutaneous Subcutaneous -Tissue Removed Subcutaneous Subcutaneous -Post Debridement (cm) - Length 1.8 2.0 -Post Debridement (cm) - Width 2.0 1.1 -Post Debridement (cm) - Depth 0.1 0.1 -Total Square (Post) (cm) 3.60 2.20 -Area of Debridement (cm) - Length 1.8 2.0 -Area of Debridement (cm) - Width 2.0 1.1 -Total Square (Area) (cm) 3.60 2.20 -Tunneling No No -Undermining/Tunneling No No -Circular Undermining No No -Wound/Ulcer Outcome Not Healed Not Healed -Ulcer Cleansing Rinsed/ Rinsed/ Irrigated with Irrigated with Saline Saline -Foul Odor after Cleansing No No -Bioengineered Tissue No No -Bleeding Controlled with Pressure Pressure -Treatment Response Procedure Procedure Tolerated Well Tolerated Well -Offloading No No -Debridement - Subq, 1st 20sq cm No No 15. R plantar -Time 08:51 09:25 -Correct Patient Yes Yes -Correct Side, Site, Position Yes Yes -Correct Procedure Yes Yes -Procedure Performed Yes Yes -Type of Procedure Debridement Debridement -Clinical Debridement Subcutaneous Subcutaneous -Tissue Removed Subcutaneous Subcutaneous -Post Debridement (cm) - Length 12.5 10.5 -Post Debridement (cm) - Width 5.3 3.5 -Post Debridement (cm) - Depth 0.1 0.1 -Total Square (Post) (cm) 66.25 36.75 -Area of Debridement (cm) - Length 12.5 10.5 -Area of Debridement (cm) - Width 5.3 3.5 -Total Square (Area) (cm) 66.25 36.75 -Tunneling No No -Undermining/Tunneling No No -Circular Undermining No No -Wound/Ulcer Outcome Not Healed Not Healed -Ulcer Cleansing Rinsed/ Rinsed/ Irrigated with Irrigated with Saline Saline -Foul Odor after Cleansing No No -Bioengineered Tissue No No -Bleeding Controlled with Pressure Pressure -Treatment Response Procedure Procedure Tolerated Well Tolerated Well -Offloading No No -Debridement - Subq, 1st 20sq cm Yes Yes -Debridement, SubQ, ea addt'l 20sq cm 3 1 or part thereof Pain Scale: 0-10 Numeric Is Patient Pain Free? Yes Yes WC - Nurse 3 - General Ulcer D/C NN Start: 05/11/25 08:19 Freq: Status: Active Protocol: Activity Type Activity Date Activity User E-sign Co-sign Detail Recorded Client Recorded Date Recorded By Document 05/11/25 09:32 RB [id number] 05/11/25 09:34 RB Edit Result 05/11/25 09:32 RB (1) [id number] 05/11/25 09:37 RB Document 05/18/25 10:19 RB [id number] 05/18/25 10:20 RB (1) 16. RLE deluna - Primary Dressing Applied Aquacel AG 4x4 => C Hydrogel - Aquacel AG 4x4 1 => - Hydrogel => 1 15. R plantar - Aquacel AG 4x4 2 => 3 05/11/25 05/18/25 09:32 10:19 Wound Care Center Nurse 3 16. RLE deluna -Ulcer Cleansing Rinsed/ Rinsed/ Irrigated with Irrigated with Saline Saline -Primary Dressing Applied C Hydrogel C Hydrogel -Primary Dressing Covered/Secured with Dry Gauze, Dry Gauze, Secured with Secured with Tape Tape -Hydrogel 1 1 15. R plantar -Ulcer Cleansing Rinsed/ Rinsed/ Irrigated with Irrigated with Saline Saline -Primary Dressing Applied Aquacel AG 4x4 Aquacel AG 4x4 -Other Dressing ABD ABD -Primary Dressing Covered/Secured with Dry Gauze,Dry Dry Gauze & Gauze & Roll Roll Gauze, Gauze,Secured Secured with with Tape Tape -Aquacel AG 4x4 3 1 Treatment Response Procedure Procedure Tolerated Well Tolerated Well Pain Scale: 0-10 Numeric Is Patient Pain Free? Yes Yes - Visit Discharge Discharge Condition Stable Stable Ambulatory Status Ambulatory Ambulatory Transportation Private Auto Private Auto Medication Reconcilliation completed & No No provided to patient/care provider Clinical Summary of Care Provided Yes Yes Additional Wound Wound debrided: right deluna Laterality: Right Type of Debridement: Excisional debridement Anesthesia Used: 4% Lidocaine Solution and 5% Lidocaine Gel Depth: Down to and including healthy tissue and in the subcutaneous layer Percentage of wound debrided: 100 Instrument Used: 5mm curette Tissue Removed: Yellow slough, devitalized tissue Severity: Fat Layer Exposed Amount of bleeding with debridement: Mild Bleeding Controlled with: Compression and gauze Patient tolerated procedure: Patient tolerated procedure well Assessment/Plan Assessment/Plan (1) Decubitus ulcer of right foot: CODE(S): L89.899 - Pressure ulcer of other site, unspecified stage QUALIFIERS: Pressure injury stage: stage 2 Qualified Code(s): L89.892 - Pressure ulcer of other site, stage 2 (2) Ulcer of right deluna with fat layer exposed: CODE(S): L97.812 - Non-pressure chronic ulcer of other part of right lower leg with fat layer exposed (3) Diabetic foot ulcer associated with type 2 diabetes mellitus, with fat layer exposed: CODE(S): E11.621 - Type 2 diabetes mellitus with foot ulcer; L97.502 - Non-pressure chronic ulcer of other part of unspecified foot with fat layer exposed QUALIFIERS: Diabetic foot ulcer location: midfoot Laterality: left Qualified Code(s): E11.621 - Type 2 diabetes mellitus with foot ulcer; L97.422 - Non-pressure chronic ulcer of left heel and midfoot with fat layer exposed (4) Diabetes: CODE(S): E11.9 - Type 2 diabetes mellitus without complications QUALIFIERS: Diabetes mellitus type: type 2 Diabetes mellitus [facility] insulin use: with manager terminal use Diabetes mellitus complication status: with hyperglycemia Qualified Code(s): E11.65 - Type 2 diabetes mellitus with hyperglycemia; Z79.4 - alf (current) use of insulin (5) Uncontrolled diabetes mellitus: QUALIFIERS: Diabetes mellitus type: type 2 Glycemic state: with hyperglycemia Qualified Code(s): E11.65 - Type 2 diabetes mellitus with hyperglycemia (6) Diabetes mellitus type 2 with neurological manifestations: CODE(S): E11.49 - Type 2 diabetes mellitus with other diabetic neurological complication (7) Insulin dependent diabetes mellitus: (8) HTN (hypertension): CODE(S): I10 - Essential (primary) hypertension QUALIFIERS: Hypertension type: primary hypertension Qualified Code(s): I10 - Essential (primary) hypertension (9) Hyperlipidemia: CODE(S): E78.5 - Hyperlipidemia, unspecified QUALIFIERS: Hyperlipidemia type: unspecified Qualified Code(s): E78.5 - Hyperlipidemia, unspecified (10) PVD (peripheral vascular disease): CODE(S): I73.9 - Peripheral vascular disease, unspecified (11) PAD (peripheral artery disease): CODE(S): I73.9 - Peripheral vascular disease, unspecified (12) Venous insufficiency of both lower extremities: CODE(S): I87.2 - Venous insufficiency (chronic) (peripheral) (13) Diabetic ulcer of right foot associated with diabetes mellitus due to underlying condition, with fat layer exposed: CODE(S): E08.621 - Diabetes mellitus due to underlying condition with foot ulcer; L97.512 - Non-pressure chronic ulcer of other part of right foot with fat layer exposed (14) Obesity: CODE(S): E66.9 - Obesity, unspecified QUALIFIERS: Obesity type: due to excess calories Obesity classification: adult class 1 (BMI 30 - 34.9) Serious obesity comorbidity presence: with serious comorbidity Body mass index: BMI 31.0-31.9 Qualified Code(s): E66.811 - Obesity, class 1; E66.09 - Other obesity due to excess calories; Z68.31 - Body mass index [BMI] 31.0-31.9, adult PLAN: Plan Evaluation and debridement performed today in clinic as annotated above. At home wound-care instructions: He will continue to dress ulcers daily with Aquacel Ag, gauze or ABD after washing with surgical wash. If draining through would have him change dressings twice daily. Keep dressings dry and intact. Off-loading: The patient was instructed to avoid pressure and friction on the affected areas. Reposition every 2 hours at minimum. Avoid prolonged standing and/or dangling of legs. When seated, feet should be elevated at chest level. Frequent ambulation is encouraged. Diet: Patient encouraged to increase protein intake while taking caution to avoid high carbohydrate and/or sugar intake and try to achieve A1C if 7.5% or less. Currently 13.2% at last check. Labs/cultures/imaging: Culture results reviewed and were positive for Pseudomonas, Staph, Strep and Cornyebacteria. Anaerobic culture results are still pending. He will complete Linezolid and Ciprofloxacin this week. Follow-up: Return in 2 weeks for wound care follow up due to 25 of May holiday. Return sooner or report to the emergency room should symptoms worsen, or new symptoms arise. Note: [employer] speech recognition seam sewer software was used to create portions of this document. Sound-alike and misspelled words, as well as other seam sewer errors may be contained in the documentation.
== END 2025-05-21 23:59 | disposition home or self-care (01) ==
LOC: WC 08:30
PROVIDERS: PCP Family Medicine; Referring Provider Family Medicine; Visit Provider Family Medicine
DX: E11.621 Type 2 diabetes mellitus with foot ulcer (principal); E11.622 Type 2 diabetes mellitus with other skin ulcer; L97.812 Non-pressure chronic ulcer of other part of right lower leg with fat layer exposed; L97.512 Non-pressure chronic ulcer of other part of right foot with fat layer exposed; E11.49 Type 2 diabetes mellitus with other diabetic neurological complication; Z79.4 Long term (current) use of insulin; E11.51 Type 2 diabetes mellitus with diabetic peripheral angiopathy without gangrene; E11.59 Type 2 diabetes mellitus with other circulatory complications; I87.2 Venous insufficiency (chronic) (peripheral); I89.0 Lymphedema, not elsewhere classified; Z79.83 Long term (current) use of bisphosphonates; E78.5 Hyperlipidemia, unspecified; E66.811 Obesity, class 1; I10 Essential (primary) hypertension; Z68.32 Body mass index [BMI] 32.0-32.9, adult
CPT/HCPCS: 11042; 11045; 99213; G0463

== ENCOUNTER 2025-06-15 08:30 | Outpatient (RCR) | payer OTHER, SELFPAY ==
[2025-06-01 08:11] VITALS: BP 175/100; PULSE 108; RESP 18; TEMP 36.9
--- NOTE | 2025-06-01 12:50 | WC ---
PHOTO 06/01/25 RIGHT PLANTAR
--- NOTE | 2025-06-01 12:52 | WC ---
PHOTO 06/01/25 RIGHT SHARP
--- NOTE | 2025-06-01 15:32 | PCM.WC.PN ---
History of Present Illness Date of Service: 06/01/25 Chief Complaint: right lateral plantar ulcer, right deluna History of Wound: David is a 54 year old male that presents to the wound center for evaluation and treatment of an ulcer of his right foot. The ulcer appeared approximately a week ago. He noticed blood coming from his shoe and there was a blister that had broken open. He has been applying gauze and washing with soap daily to treat the ulcer and was seen at urgent care and started on doxycycline. A wound culture was taken and results showed multiple bacteria with Pseudomonas, Staph and Strep. Anaerobic culture is still pending. He denies systemic symptoms such as fever, chills, erythema, odor. He is struggling financially to afford supplies, medications and taking care of his home and financial responsibilities. He works at the [employer] and he is on his feet all the time there. His last A1C was 01/2025 and was 13.2 %. He is a very poorly controlled diabetic on insulin. He does not have diabetic shoes. He does see Dr. Ozuna for podiatry for diabetic foot exams. 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 He also had repeat venous testing 04/08/23 which showed incompetence and vascular surgery was considered but was not done at that time. He has not been able to place compression because he is unable to bend to pull on compression stockings due to arthritis in his back. He is not able to wrap with RADHA bandages either. Circaids were tried previously but he was unable to do this as well. He has been wearing tubigrips for compression. He states he still has issues getting them on at times when his back is flared up. He has chronic lymphedema. Subjective Subjective Kian returns today for treatment of his right deluna ulcer and right plantar ulcer. He has had significant improvement in size of ulcer. He tolerated antibiotic treatment and dressing changes are going well. He is offloading and has not been working in order to heal his foot ulcer. He denies increased pain, odor or drainage. Objective Data Objective Data Vital Signs: Vital Signs Temp Pulse Resp BP 98.4 F 108 H 18 175/100 H 06/01/25 08:11 06/01/25 08:11 06/01/25 08:11 06/01/25 08:11 Physical Exam Const alert, oriented x3 and no apparent distress General Appearance: cooperative and comfortable HEENT normocephalic and head/scalp atraumatic Resp normal respiratory effort Effort and Inspection: able to speak in complete sentences Cardio regular rate and regular rhythm Skin Wounds: wounds noted Wound Narrative: as in clinical panel moderate slough and callous formation which were debrided with 15 blade and pick ups with beveled edges and granulation tissue present Psych mental status grossly normal, thought process normal, cooperative and affect normal Debridement Note Debridement Note Wound debrided: right plantar ulcer Laterality: Right Type of Debridement: Excisional debridement Anesthesia Used: 4% Lidocaine Solution and 5% Lidocaine Gel Depth: Down to and including healthy tissue and in the subcutaneous layer Percentage of wound debrided: 100 Instrument Used: #15 blade and Forceps Tissue Removed: Yellow slough, devitalized tissue Severity: Fat Layer Exposed Amount of bleeding with debridement: Mild Bleeding Controlled with: Compression and gauze Patient tolerated procedure: Patient tolerated procedure well Post-Debridement Measurements and Additional Note: Post-Debridement Measurements/Treatment - Nurse 1 - General Ulcer Assessment Start: 06/01/25 08:11 Freq: Status: Active Protocol: MART Activity Type Activity Date Activity User E-sign Co-sign Detail Recorded Client Recorded Date Recorded By Document 06/01/25 08:11 [facility] [id number] 06/01/25 08:18 [facility] 06/01/25 08:11 - Today's Visit Information Type of service Follow-up Visit (Physician/CUSTOMER SUPPORT MANAGER ) Arrival Mode Ambulatory Transfer Assistance None Patient Identification Verified (Name & Yes ) Patient Requires Transmission-Based No Precautions Vital Signs Temperature (97.8 F-99.1 F) 98.4 F Temperature Source Temporal Pulse Rate (60-100) 108 H Pulse Location Monitor Respiratory Rate (12-18) 18 Respiratory rate source Observation Blood Pressure (90/60-120/80) 175/100 H Blood Pressure Mean (mm Hg) 125 Source Monitor Position Semi-Fowlers Blood Pressure Location Left Arm History Since Last Visit- (Skip if this is Patient's initial visit) Have you changed medications since your No last visit? Any new allergies or adverse reactions No Had a fall/change in ADL's that may No increase risk of falls Signs or symptoms of abuse and/or No neglect since last visit Have you been in the hospital since your No last visit? Has dressing in place as prescribed Yes Has compression in place as prescribed No Has offloadiing in place as prescribed No Experienced any changes in pain level or No management Pain Scale: 0-10 Numeric Is Patient Pain Free? No R foot -Description Burning -Intensity 3 -Duration (hours) Acute -Pain Behavior Withdrawal from Touch -Pain Aggravating Factors Exercise/ Activity, Walking -Alleviating Factors/Interventions Medication -Effectiveness of Alleviating Factor/ Moderately Intervention effective WC - Nurse 1 - General Ulcer Measurement Start: 06/01/25 08:11 Freq: Status: Active Protocol: Activity Type Activity Date Activity User E-sign Co-sign Detail Recorded Client Recorded Date Recorded By Document 06/01/25 08:11 [facility] [id number] 06/01/25 08:18 [facility] 06/01/25 08:11 Wound Center Nurse 1 16. RLE deluna -Combined with other wound No -Current Size (cm) - Length 2.3 -Current Size (cm) - Width 1 -Current Size (cm) - Depth 0.2 -Total Square Cm 2.3 -Photo Taken Yes -Tunneling No -Undermining/Tunneling No -Circular Undermining No -Exudate Amt Medium -Exudate Type Serosanguineous -Wound Margin Distinct, Outline Attached -Granulation Amt Medium (34-66%) -Granulation Quality [place] -Slough/Fibrin Yes -Necrosis Amt Medium (34-66%) -Necrotic Tissue Type Adherent Slough -Structure Exposed N/A -Texture (Milly-wound Skin Appearance) Assessed -Moisture (Milly-wound Skin Appearance) Assessed -Color (Milly-wound Skin Appearance) Assessed -Temperature (Milly-wound Skin No Abnormality Appearance) (Pt Warm) -Tenderness on Palpation (Milly-wound No Skin Appearance) -Ulcer Cleansing Wound Cleanser -Foul Odor after Cleansing No -Anesthetic Used 5% Lidocaine Gel 15. R plantar -Combined with other wound No -Current Size (cm) - Length 4.7 -Current Size (cm) - Width 2.6 -Current Size (cm) - Depth 0.1 -Total Square Cm 12.22 -Photo Taken Yes -Tunneling No -Undermining/Tunneling No -Circular Undermining No -Exudate Amt Medium -Exudate Type Serosanguineous -Wound Margin Distinct, Outline Attached -Granulation Amt Medium (34-66%) -Granulation Quality [place] -Slough/Fibrin Yes -Necrosis Amt Medium (34-66%) -Necrotic Tissue Type Adherent Slough -Structure Exposed N/A -Texture (Milly-wound Skin Appearance) Assessed,Callus -Moisture (Milly-wound Skin Appearance) Assessed -Color (Milly-wound Skin Appearance) Assessed -Temperature (Milly-wound Skin No Abnormality Appearance) (Pt Warm) -Tenderness on Palpation (Milly-wound No Skin Appearance) -Ulcer Cleansing Wound Cleanser -Foul Odor after Cleansing No -Anesthetic Used 5% Lidocaine Gel WC - Nurse 2 - General Ulcer CM Notes Start: 06/01/25 08:11 Freq: Status: Active Protocol: Activity Type Activity Date Activity User E-sign Co-sign Detail Recorded Client Recorded Date Recorded By Document 06/01/25 08:55 [id number] 06/01/25 09:21 GM 06/01/25 08:55 Wound Center Nurse 2 16. RLE deluna -Time 08:56 -Correct Patient Yes -Correct Side, Site, Position Yes -Correct Procedure Yes -Procedure Performed Yes -Type of Procedure Debridement -Clinical Debridement Subcutaneous -Tissue Removed Subcutaneous -Post Debridement (cm) - Length 3.0 -Post Debridement (cm) - Width 1.7 -Post Debridement (cm) - Depth 0.1 -Total Square (Post) (cm) 5.10 -Area of Debridement (cm) - Length 3.0 -Area of Debridement (cm) - Width 1.7 -Total Square (Area) (cm) 5.10 -Tunneling No -Undermining/Tunneling No -Circular Undermining No -Wound/Ulcer Outcome Not Healed -Ulcer Cleansing Rinsed/ Irrigated with Saline -Foul Odor after Cleansing No -Bioengineered Tissue No -Bleeding Controlled with Pressure -Treatment Response Procedure Tolerated Well -Offloading No -Debridement - Subq, 1st 20sq cm Yes 15. R plantar -Time 08:56 -Correct Patient Yes -Correct Side, Site, Position Yes -Correct Procedure Yes -Procedure Performed Yes -Type of Procedure Debridement -Clinical Debridement Subcutaneous -Tissue Removed Subcutaneous -Post Debridement (cm) - Length 5.0 -Post Debridement (cm) - Width 2.5 -Post Debridement (cm) - Depth 0.1 -Total Square (Post) (cm) 12.50 -Area of Debridement (cm) - Length 5.0 -Area of Debridement (cm) - Width 2.5 -Total Square (Area) (cm) 12.50 -Tunneling No -Undermining/Tunneling No -Circular Undermining No -Wound/Ulcer Outcome Not Healed -Ulcer Cleansing Rinsed/ Irrigated with Saline -Foul Odor after Cleansing No -Bioengineered Tissue No -Bleeding Controlled with Pressure -Treatment Response Procedure Tolerated Well -Offloading No -Debridement - Subq, 1st 20sq cm No Pain Scale: 0-10 Numeric Is Patient Pain Free? Yes - Nurse 3 - General Ulcer D/C NN Start: 06/01/25 08:11 Freq: Status: Active Protocol: Activity Type Activity Date Activity User E-sign Co-sign Detail Recorded Client Recorded Date Recorded By Document 06/01/25 09:27 RB [id number] 06/01/25 09:28 RB Edit Result 06/01/25 09:27 RB (1) [id number] 06/01/25 09:29 RB (1) 15. R plantar - Aquacel AG 4x4 1 => 2 06/01/25 09:27 Wound Care Center Nurse 3 16. RLE deluna -Primary Dressing Applied C Hydrogel -Primary Dressing Covered/Secured with Dry Gauze,Dry Gauze & Roll Gauze,Secured with Tape -Hydrogel 1 15. R plantar -Ulcer Cleansing Rinsed/ Irrigated with Saline -Primary Dressing Applied Aquacel AG 4x4 -Primary Dressing Covered/Secured with Dry Gauze,Dry Gauze & Roll Gauze,Secured with Tape -Aquacel AG 4x4 2 Treatment Response Procedure Tolerated Well Pain Scale: 0-10 Numeric Is Patient Pain Free? Yes - Visit Discharge Discharge Condition Stable Ambulatory Status Ambulatory Transportation Private Auto Medication Reconcilliation completed & No provided to patient/care provider Clinical Summary of Care Provided Yes Additional Wound Wound debrided: right deluna Laterality: Right Type of Debridement: Excisional debridement Anesthesia Used: 4% Lidocaine Solution and 5% Lidocaine Gel Depth: Down to and including healthy tissue and in the subcutaneous layer Percentage of wound debrided: 100 Instrument Used: 5mm curette Tissue Removed: Yellow slough, devitalized tissue Severity: Fat Layer Exposed Amount of bleeding with debridement: Mild Bleeding Controlled with: Compression and gauze Patient tolerated procedure: Patient tolerated procedure well Assessment/Plan Assessment/Plan (1) Decubitus ulcer of right foot: CODE(S): L89.899 - Pressure ulcer of other site, unspecified stage QUALIFIERS: Pressure injury stage: stage 2 Qualified Code(s): L89.892 - Pressure ulcer of other site, stage 2 (2) Ulcer of right deluna with fat layer exposed: CODE(S): L97.812 - Non-pressure chronic ulcer of other part of right lower leg with fat layer exposed (3) Diabetic foot ulcer associated with type 2 diabetes mellitus, with fat layer exposed: CODE(S): E11.621 - Type 2 diabetes mellitus with foot ulcer; L97.502 - Non-pressure chronic ulcer of other part of unspecified foot with fat layer exposed QUALIFIERS: Diabetic foot ulcer location: midfoot Laterality: left Qualified Code(s): E11.621 - Type 2 diabetes mellitus with foot ulcer; L97.422 - Non-pressure chronic ulcer of left heel and midfoot with fat layer exposed (4) Diabetes: CODE(S): E11.9 - Type 2 diabetes mellitus without complications QUALIFIERS: Diabetes mellitus type: type 2 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 insulin 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: with ferry terminal supervisor use Diabetes mellitus complication status: with hyperglycemia Qualified Code(s): E11.65 - Type 2 diabetes mellitus with hyperglycemia; Z79.4 - longterm (current) use of insulin (5) Uncontrolled diabetes mellitus: QUALIFIERS: Diabetes mellitus type: type 2 Glycemic state: with hyperglycemia Qualified Code(s): E11.65 - Type 2 diabetes mellitus with hyperglycemia (6) Diabetes mellitus type 2 with neurological manifestations: CODE(S): E11.49 - Type 2 diabetes mellitus with other diabetic neurological complication (7) Insulin dependent diabetes mellitus: (8) HTN (hypertension): CODE(S): I10 - Essential (primary) hypertension QUALIFIERS: Hypertension type: primary hypertension Qualified Code(s): I10 - Essential (primary) hypertension (9) Hyperlipidemia: CODE(S): E78.5 - Hyperlipidemia, unspecified QUALIFIERS: Hyperlipidemia type: unspecified Qualified Code(s): E78.5 - Hyperlipidemia, unspecified (10) PVD (peripheral vascular disease): CODE(S): I73.9 - Peripheral vascular disease, unspecified (11) PAD (peripheral artery disease): CODE(S): I73.9 - Peripheral vascular disease, unspecified (12) Venous insufficiency of both lower extremities: CODE(S): I87.2 - Venous insufficiency (chronic) (peripheral) (13) Diabetic ulcer of right foot associated with diabetes mellitus due to underlying condition, with fat layer exposed: CODE(S): E08.621 - Diabetes mellitus due to underlying condition with foot ulcer; L97.512 - Non-pressure chronic ulcer of other part of right foot with fat layer exposed (14) Obesity: CODE(S): E66.9 - Obesity, unspecified QUALIFIERS: Obesity type: due to excess calories Obesity classification: adult class 1 (BMI 30 - 34.9) Serious obesity comorbidity presence: with serious comorbidity Body mass index: BMI 31.0-31.9 Qualified Code(s): E66.811 - Obesity, class 1; E66.09 - Other obesity due to excess calories; Z68.31 - Body mass index [BMI] 31.0-31.9, adult PLAN: Plan Evaluation and debridement performed today in clinic as annotated above. At home wound-care instructions: He will continue to dress ulcers daily with Aquacel Ag, gauze or ABD after washing with surgical wash. Keep dressings dry and intact. Off-loading: The patient was instructed to avoid pressure and friction on the affected areas. Reposition every 2 hours at minimum. Avoid prolonged standing and/or dangling of legs. When seated, feet should be elevated at chest level. Frequent ambulation is encouraged. Diet: Patient encouraged to increase protein intake while taking caution to avoid high carbohydrate and/or sugar intake and try to achieve A1C if 7.5% or less. Currently 13.2% at last check. Labs/cultures/imaging: Culture results reviewed and were positive for Pseudomonas, Staph, Strep and Cornyebacteria. Anaerobic culture results are still pending. He will complete Linezolid and Ciprofloxacin this week. Follow-up: Return in 1 week for wound care follow up. Return sooner or report to the emergency room should symptoms worsen, or new symptoms arise. Note: [employer] speech recognition pipe bowl paint trimmer software was used to create portions of this document. Sound-alike and misspelled words, as well as other pipe bowl paint trimmer errors may be contained in the documentation.
[2025-06-08 08:13] VITALS: BP 157/81; PULSE 79; RESP 18; TEMP 35.8
--- NOTE | 2025-06-08 15:08 | PCM.WC.PN ---
History of Present Illness Date of Service: 06/08/25 Chief Complaint: right lateral plantar ulcer, right deluna History of Wound: David is a 54 year old male that presents to the wound center for evaluation and treatment of an ulcer of his right foot. The ulcer appeared approximately a week ago. He noticed blood coming from his shoe and there was a blister that had broken open. He has been applying gauze and washing with soap daily to treat the ulcer and was seen at urgent care and started on doxycycline. A wound culture was taken and results showed multiple bacteria with Pseudomonas, Staph and Strep. Anaerobic culture is still pending. He denies systemic symptoms such as fever, chills, erythema, odor. He is struggling financially to afford supplies, medications and taking care of his home and financial responsibilities. 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 His last A1C was 01/2025 and was 13.2 %. He is a very poorly controlled diabetic on insulin. He does not have diabetic shoes. He does see Dr. Ozuna for podiatry for diabetic foot exams. 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 He also had repeat venous testing 04/08/23 which showed incompetence and vascular surgery was considered but was not done at that time. He has not been able to place compression because he is unable to bend to pull on compression stockings due to arthritis in his back. He is not able to wrap with RADHA bandages either. Circaids were tried previously but he was unable to do this as well. He has been wearing tubigrips for compression. He states he still has issues getting them on at times when his back is flared up. He has chronic lymphedema. Subjective Subjective Kian returns today for treatment of his right deluna ulcer and right plantar ulcer. He has breakdown of skin of his left medial plantar foot that is new today. He has had significant improvement in size of ulcer. He tolerated antibiotic treatment and dressing changes are going well. He is offloading and has not been working in order to heal his foot ulcer. He denies increased pain, odor or drainage. Objective Data Objective Data Vital Signs: Vital Signs Temp Pulse Resp BP O2 Del Method 96.5 F L 79 18 157/81 H Room Air 06/08/25 08:13 06/08/25 08:13 06/08/25 08:13 06/08/25 08:13 06/08/25 08:13 Oxygen Delivery Method Room Air Physical Exam Const alert, oriented x3 and no apparent distress General Appearance: cooperative and comfortable HEENT normocephalic and head/scalp atraumatic Resp normal respiratory effort Effort and Inspection: able to speak in complete sentences Cardio regular rate and regular rhythm Skin Wounds: wounds noted Wound Narrative: as in clinical panel moderate slough and callous formation which were debrided with 15 blade and pick ups with beveled edges and granulation tissue present Psych mental status grossly normal, thought process normal, cooperative and affect normal Debridement Note Debridement Note Wound debrided: right plantar ulcer Laterality: Right Type of Debridement: Excisional debridement Anesthesia Used: 4% Lidocaine Solution and 5% Lidocaine Gel Depth: Down to and including healthy tissue and in the subcutaneous layer Percentage of wound debrided: 100 Instrument Used: #15 blade and Forceps Tissue Removed: Yellow slough, devitalized tissue Severity: Fat Layer Exposed Amount of bleeding with debridement: Mild Bleeding Controlled with: Compression and gauze Patient tolerated procedure: Patient tolerated procedure well Post-Debridement Measurements and Additional Note: Post-Debridement Measurements/Treatment - Nurse 1 - General Ulcer Assessment Start: 06/01/25 08:11 Freq: Status: Active Protocol: MART Activity Type Activity Date Activity User E-sign Co-sign Detail Recorded Client Recorded Date Recorded By Document 06/01/25 08:11 [facility] [id number] 06/01/25 08:18 [facility] Document 06/08/25 08:13 [id number] 06/08/25 08:19 06/01/25 06/08/25 08:11 08:13 - Today's Visit Information Type of service Follow-up Visit Follow-up Visit (Physician/STEEL ESTIMATOR (Physician/STEEL ESTIMATOR ) ) Arrival Mode Ambulatory Ambulatory Transfer Assistance None Patient Identification Verified (Name & Yes Yes ) Patient Requires Transmission-Based No Precautions Vital Signs Temperature (97.8 F-99.1 F) 98.4 F 96.5 F L Temperature Source Temporal Temporal Pulse Rate (60-100) 108 H 79 Pulse Location Monitor Monitor Respiratory Rate (12-18) 18 18 Respiratory rate source Observation Observation Oxygen Delivery Method Room Air Blood Pressure (90/60-120/80) 175/100 H 157/81 H Blood Pressure Mean (mm Hg) 125 106 Source Monitor Monitor Position Semi-Fowlers Semi-Fowlers Blood Pressure Location Left Arm Right Arm History Since Last Visit- (Skip if this is Patient's initial visit) Have you changed medications since your No No last visit? Any new allergies or adverse reactions No No Had a fall/change in ADL's that may No No increase risk of falls Signs or symptoms of abuse and/or No No neglect since last visit Have you been in the hospital since your No No last visit? Has dressing in place as prescribed Yes Yes Has compression in place as prescribed No Yes Has offloadiing in place as prescribed No N/A Experienced any changes in pain level or No No management Left Footwear Regular Shoe Right Footwear Regular Shoe Pain Scale: 0-10 Numeric Is Patient Pain Free? No Yes R foot -Description Burning -Intensity 3 -Duration (hours) Acute -Pain Behavior Withdrawal from Touch -Pain Aggravating Factors Exercise/ Activity, Walking -Alleviating Factors/Interventions Medication -Effectiveness of Alleviating Factor/ Moderately Intervention effective WC - Nurse 1 - General Ulcer Measurement Start: 06/01/25 08:11 Freq: Status: Active Protocol: Activity Type Activity Date Activity User E-sign Co-sign Detail Recorded Client Recorded Date Recorded By Document 06/01/25 08:11 [facility] [id number] 06/01/25 08:18 [facility] Document 06/08/25 08:13 [id number] 06/08/25 08:19 06/01/25 06/08/25 08:11 08:13 Wound Center Nurse 1 16. RLE deluna -Combined with other wound No -Current Size (cm) - Length 2.3 1 -Current Size (cm) - Width 1 1 -Current Size (cm) - Depth 0.2 0.1 -Total Square Cm 2.3 1 -Photo Taken Yes -Tunneling No -Undermining/Tunneling No -Circular Undermining No -Exudate Amt Medium Small -Exudate Type Serosanguineous Serosanguineous -Wound Margin Distinct, Distinct, Outline Outline Attached Attached -Granulation Amt Medium (34-66%) -Granulation Quality [place] -Slough/Fibrin Yes -Necrosis Amt Medium (34-66%) -Necrotic Tissue Type Adherent Slough -Structure Exposed N/A -Texture (Milly-wound Skin Appearance) Assessed Assessed -Moisture (Milly-wound Skin Appearance) Assessed Assessed -Color (Milly-wound Skin Appearance) Assessed Assessed, Erythema -Temperature (Milly-wound Skin No Abnormality No Abnormality Appearance) (Pt Warm) (Pt Warm) -Tenderness on Palpation (Milly-wound No No Skin Appearance) -Ulcer Cleansing Wound Cleanser Rinsed/ Irrigated with Saline -Foul Odor after Cleansing No No -Anesthetic Used 5% Lidocaine 5% Lidocaine Gel Gel 15. R plantar -Combined with other wound No -Current Size (cm) - Length 4.7 5 -Current Size (cm) - Width 2.6 2.5 -Current Size (cm) - Depth 0.1 0.1 -Total Square Cm 12.22 12.5 -Photo Taken Yes -Tunneling No -Undermining/Tunneling No -Circular Undermining No -Exudate Amt Medium Medium -Exudate Type Serosanguineous Serosanguineous -Wound Margin Distinct, Distinct, Outline Outline Attached Attached -Granulation Amt Medium (34-66%) Large (67-100%) -Granulation Quality [place] Red -Slough/Fibrin Yes -Necrosis Amt Medium (34-66%) -Necrotic Tissue Type Adherent Slough -Structure Exposed N/A -Texture (Milly-wound Skin Appearance) Assessed,Callus Assessed,Callus -Moisture (Milly-wound Skin Appearance) Assessed Assessed -Color (Milly-wound Skin Appearance) Assessed Assessed -Temperature (Milly-wound Skin No Abnormality No Abnormality Appearance) (Pt Warm) (Pt Warm) -Tenderness on Palpation (Milly-wound No No Skin Appearance) -Ulcer Cleansing Wound Cleanser Rinsed/ Irrigated with Saline -Foul Odor after Cleansing No No -Anesthetic Used 5% Lidocaine 5% Lidocaine Gel Gel WC - Nurse 2 - General Ulcer CM Notes Start: 06/01/25 08:11 Freq: Status: Active Protocol: Activity Type Activity Date Activity User E-sign Co-sign Detail Recorded Client Recorded Date Recorded By Document 06/01/25 08:55 GM [id number] 06/01/25 09:21 Document 06/08/25 09:59 DS [id number] 06/08/25 10:18 DS 06/01/25 06/08/25 08:55 09:59 Wound Center Nurse 2 17. left foot cluster -Time 10:18 -Correct Patient Yes -Correct Side, Site, Position Yes -Procedure Performed No -Post Debridement (cm) - Length 1.0 -Post Debridement (cm) - Width 1.0 -Post Debridement (cm) - Depth 0.1 -Total Square (Post) (cm) 1.00 -Area of Debridement (cm) - Length 1.0 -Area of Debridement (cm) - Width 1.0 -Total Square (Area) (cm) 1.00 -Tunneling No -Undermining/Tunneling No -Circular Undermining No -Wound/Ulcer Outcome Not Healed 16. RLE deluna -Time 08:56 09:59 -Correct Patient Yes Yes -Correct Side, Site, Position Yes Yes -Correct Procedure Yes Yes -Procedure Performed Yes Yes -Type of Procedure Debridement Debridement -Clinical Debridement Subcutaneous Subcutaneous -Tissue Removed Subcutaneous Subcutaneous -Post Debridement (cm) - Length 3.0 1.2 -Post Debridement (cm) - Width 1.7 1.0 -Post Debridement (cm) - Depth 0.1 0.1 -Total Square (Post) (cm) 5.10 1.20 -Area of Debridement (cm) - Length 3.0 1.2 -Area of Debridement (cm) - Width 1.7 1.0 -Total Square (Area) (cm) 5.10 1.20 -Tunneling No No -Undermining/Tunneling No No -Circular Undermining No No -Wound/Ulcer Outcome Not Healed Not Healed -Ulcer Cleansing Rinsed/ Rinsed/ Irrigated with Irrigated with Saline Saline -Foul Odor after Cleansing No No -Bioengineered Tissue No No -Bleeding Controlled with Pressure Pressure -Treatment Response Procedure Procedure Tolerated Well Tolerated Well -Offloading No -Debridement - Subq, 1st 20sq cm Yes No 15. R plantar -Time 08:56 09:59 -Correct Patient Yes Yes -Correct Side, Site, Position Yes Yes -Correct Procedure Yes Yes -Procedure Performed Yes Yes -Type of Procedure Debridement Debridement -Clinical Debridement Subcutaneous Subcutaneous -Tissue Removed Subcutaneous Subcutaneous -Post Debridement (cm) - Length 5.0 4.2 -Post Debridement (cm) - Width 2.5 1.6 -Post Debridement (cm) - Depth 0.1 0.1 -Total Square (Post) (cm) 12.50 6.72 -Area of Debridement (cm) - Length 5.0 4.2 -Area of Debridement (cm) - Width 2.5 1.6 -Total Square (Area) (cm) 12.50 6.72 -Tunneling No No -Undermining/Tunneling No No -Circular Undermining No No -Wound/Ulcer Outcome Not Healed Not Healed -Ulcer Cleansing Rinsed/ Rinsed/ Irrigated with Irrigated with Saline Saline -Foul Odor after Cleansing No No -Bioengineered Tissue No No -Bleeding Controlled with Pressure Pressure -Treatment Response Procedure Procedure Tolerated Well Tolerated Well -Offloading No -Debridement - Subq, 1st 20sq cm No Yes Pain Scale: 0-10 Numeric Is Patient Pain Free? Yes Yes - Nurse 3 - General Ulcer D/C NN Start: 06/01/25 08:11 Freq: Status: Active Protocol: Activity Type Activity Date Activity User E-sign Co-sign Detail Recorded Client Recorded Date Recorded By Document 06/01/25 09:27 RB [id number] 06/01/25 09:28 RB Edit Result 06/01/25 09:27 RB (1) [id number] 06/01/25 09:29 RB Document 06/08/25 10:27 KW [id number] 06/08/25 10:30 KW (1) 15. R plantar - Aquacel AG 4x4 1 => 2 06/01/25 06/08/25 09:27 10:27 Wound Care Center Nurse 3 17. left foot cluster -Primary Dressing Applied Promogran -Primary Dressing Covered/Secured with Dry Gauze & Roll Gauze -Promogran 1 16. RLE deluna -Primary Dressing Applied C Hydrogel NonAdherent Contact Layer -Other Dressing hydrogel -Primary Dressing Covered/Secured with Dry Gauze,Dry Dry Gauze, Gauze & Roll Secured with Gauze,Secured Tape with Tape -Hydrogel 1 15. R plantar -Ulcer Cleansing Rinsed/ Irrigated with Saline -Primary Dressing Applied Aquacel AG 4x4 Aquacel AG 4x4 -Primary Dressing Covered/Secured with Dry Gauze,Dry Dry Gauze & Gauze & Roll Roll Gauze, Gauze,Secured Secured with with Tape Tape -Aquacel AG 4x4 2 1 Treatment Response Procedure Tolerated Well Pain Scale: 0-10 Numeric Is Patient Pain Free? Yes Yes WC - Visit Discharge Discharge Condition Stable Stable Ambulatory Status Ambulatory Ambulatory Transportation Private Auto Private Auto Medication Reconcilliation completed & No No provided to patient/care provider Clinical Summary of Care Provided Yes Yes Additional Wound Wound debrided: right deluna Laterality: Right Type of Debridement: Excisional debridement Anesthesia Used: 4% Lidocaine Solution and 5% Lidocaine Gel Depth: Down to and including healthy tissue and in the subcutaneous layer Percentage of wound debrided: 100 Instrument Used: 5mm curette Tissue Removed: Yellow slough, devitalized tissue Severity: Fat Layer Exposed Amount of bleeding with debridement: Mild Bleeding Controlled with: Compression and gauze Patient tolerated procedure: Patient tolerated procedure well Assessment/Plan Assessment/Plan (1) Decubitus ulcer of right foot: CODE(S): L89.899 - Pressure ulcer of other site, unspecified stage QUALIFIERS: Pressure injury stage: stage 2 Qualified Code(s): L89.892 - Pressure ulcer of other site, stage 2 (2) Ulcer of right deluna with fat layer exposed: CODE(S): L97.812 - Non-pressure chronic ulcer of other part of right lower leg with fat layer exposed (3) Diabetic foot ulcer associated with type 2 diabetes mellitus, with fat layer exposed: CODE(S): E11.621 - Type 2 diabetes mellitus with foot ulcer; L97.502 - Non-pressure chronic ulcer of other part of unspecified foot with fat layer exposed QUALIFIERS: Diabetic foot ulcer location: midfoot Laterality: left Qualified Code(s): E11.621 - Type 2 diabetes mellitus with foot ulcer; L97.422 - Non-pressure chronic ulcer of left heel and midfoot with fat layer exposed (4) Diabetes: CODE(S): E11.9 - Type 2 diabetes mellitus without complications QUALIFIERS: Diabetes mellitus type: type 2 Diabetes mellitus consultant dietitian insulin use: with prison use Diabetes mellitus complication status: with hyperglycemia Qualified Code(s): E11.65 - Type 2 diabetes mellitus with hyperglycemia; Z79.4 - shelter (current) use of insulin (5) Uncontrolled diabetes mellitus: QUALIFIERS: Diabetes mellitus type: type 2 Glycemic state: with hyperglycemia Qualified Code(s): E11.65 - Type 2 diabetes mellitus with hyperglycemia (6) Diabetes mellitus type 2 with neurological manifestations: CODE(S): E11.49 - Type 2 diabetes mellitus with other diabetic neurological complication (7) Insulin dependent diabetes mellitus: (8) HTN (hypertension): CODE(S): I10 - Essential (primary) hypertension QUALIFIERS: Hypertension type: primary hypertension Qualified Code(s): I10 - Essential (primary) hypertension (9) Hyperlipidemia: CODE(S): E78.5 - Hyperlipidemia, unspecified QUALIFIERS: Hyperlipidemia type: unspecified Qualified Code(s): E78.5 - Hyperlipidemia, unspecified (10) PVD (peripheral vascular disease): CODE(S): I73.9 - Peripheral vascular disease, unspecified (11) PAD (peripheral artery disease): CODE(S): I73.9 - Peripheral vascular disease, unspecified (12) Venous insufficiency of both lower extremities: CODE(S): I87.2 - Venous insufficiency (chronic) (peripheral) (13) Diabetic ulcer of right foot associated with diabetes mellitus due to underlying condition, with fat layer exposed: CODE(S): E08.621 - Diabetes mellitus due to underlying condition with foot ulcer; L97.512 - Non-pressure chronic ulcer of other part of right foot with fat layer exposed QUALIFIERS: Diabetic foot ulcer location: midfoot Qualified Code(s): E08.621 - Diabetes mellitus due to underlying condition with foot ulcer; L97.412 - Non-pressure chronic ulcer of right heel and midfoot with fat layer exposed (14) Obesity: CODE(S): E66.9 - Obesity, unspecified QUALIFIERS: Obesity type: due to excess calories Obesity classification: adult class 1 (BMI 30 - 34.9) Serious obesity comorbidity presence: with serious comorbidity Body mass index: BMI 31.0-31.9 Qualified Code(s): E66.811 - Obesity, class 1; E66.09 - Other obesity due to excess calories; Z68.31 - Body mass index [BMI] 31.0-31.9, adult PLAN: Plan Evaluation and debridement performed today in clinic as annotated above. At home wound-care instructions: He will continue to dress his right foot ulcer daily with Aquacel Ag, gauze or ABD after washing with surgical wash. He will use hydrogel to his right deluna and promogran to his left medial plantar ulcer. Keep dressings dry and intact. Off-loading: The patient was instructed to avoid pressure and friction on the affected areas. Reposition every 2 hours at minimum. Avoid prolonged standing and/or dangling of legs. When seated, feet should be elevated at chest level. Frequent ambulation is encouraged. Diet: Patient encouraged to increase protein intake while taking caution to avoid high carbohydrate and/or sugar intake and try to achieve A1C if 7.5% or less. Currently 13.2% at last check. Labs/cultures/imaging: Culture results reviewed and were positive for Pseudomonas, Staph, Strep and Cornyebacteria. Anaerobic culture results are still pending. He will complete Linezolid and Ciprofloxacin this week. Follow-up: Return in 1 week for wound care follow up. Return sooner or report to the emergency room should symptoms worsen, or new symptoms arise. Note: [employer] speech recognition chair finisher software was used to create portions of this document. Sound-alike and misspelled words, as well as other chair finisher errors may be contained in the documentation.
[2025-06-15 08:26] VITALS: BP 182/98; PULSE 80; RESP 18; TEMP 36.1
--- NOTE | 2025-06-15 15:07 | PN.PCM_ITS ---
History of Present Illness Date of Service: 06/15/25 Chief Complaint: right lateral plantar ulcer, right deluna History of Wound: David is a 54 year old male that presents to the wound center for evaluation and treatment of an ulcer of his right foot. The ulcer appeared approximately a week ago. He noticed blood coming from his shoe and there was a blister that had broken open. He has been applying gauze and washing with soap daily to treat the ulcer and was seen at urgent care and started on doxycycline. A wound culture was taken and results showed multiple bacteria with Pseudomonas, Staph and Strep. Anaerobic culture is still pending. He denies systemic symptoms such as fever, chills, erythema, odor. He is struggling financially to afford supplies, medications and taking care of his home and financial responsibilities. He works at the [employer] and he is on his feet all the time there. His last A1C was 01/2025 and was 13.2 %. He is a very poorly controlled diabetic on insulin. He does not have diabetic shoes. He does see Dr. Ozuna for podiatry for diabetic foot exams. 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 He also had repeat venous testing 04/08/23 which showed incompetence and vascular surgery was considered but was not done at that time. He has not been able to place compression because he is unable to bend to pull on compression stockings due to arthritis in his back. He is not able to wrap with RADHA bandages either. Circaids were tried previously but he was unable to do this as well. He has been wearing tubigrips for compression. He states he still has issues getting them on at times when his back is flared up. He has chronic lymphedema. Subjective Subjective Kian returns today for treatment of his right deluna ulcer and right plantar ulcer. He has had improvement in size of ulcer. He tolerated antibiotic treatment and dressing changes are going well. He is offloading and has not been working in order to heal his foot ulcer. He denies increased pain, odor or drainage. Objective Data Objective Data Vital Signs: Vital Signs Temp Pulse Resp BP O2 Del Method 96.9 F L 80 18 182/98 H Room Air 06/15/25 08:26 06/15/25 08:26 06/15/25 08:26 06/15/25 08:26 06/15/25 08:26 Oxygen Delivery Method Room Air Physical Exam Const alert, oriented x3 and no apparent distress General Appearance: cooperative and comfortable HEENT normocephalic and head/scalp atraumatic Resp normal respiratory effort Effort and Inspection: able to speak in complete sentences Cardio regular rate and regular rhythm Skin Wounds: wounds noted Wound Narrative: as in clinical panel moderate slough and callous formation which were debrided with 15 blade and pick ups with beveled edges and granulation tissue present to right plantar, left plantar and right deluna Psych mental status grossly normal, thought process normal, cooperative and affect normal Debridement Note Debridement Note Wound debrided: right plantar ulcer Laterality: Right Type of Debridement: Excisional debridement Anesthesia Used: 4% Lidocaine Solution and 5% Lidocaine Gel Depth: Down to and including healthy tissue and in the subcutaneous layer Percentage of wound debrided: 100 Instrument Used: #15 blade and Forceps Tissue Removed: Yellow slough, devitalized tissue Severity: Fat Layer Exposed Amount of bleeding with debridement: Mild Bleeding Controlled with: Compression and gauze Patient tolerated procedure: Patient tolerated procedure well Post-Debridement Measurements and Additional Note: Post-Debridement Measurements/Treatment - Nurse 1 - General Ulcer Assessment Start: 06/01/25 08:11 Freq: Status: Active Protocol: MART Activity Type Activity Date Activity User E-sign Co-sign Detail Recorded Client Recorded Date Recorded By Document 06/01/25 08:11 [facility] [id number] 06/01/25 08:18 [facility] Document 06/08/25 08:13 KW [id number] 06/08/25 08:19 KW Document 06/15/25 08:26 KW [id number] 06/15/25 08:35 KW 06/01/25 06/08/25 06/15/25 08:11 08:13 08:26 - Today's Visit Information Type of service Follow-up Visit Follow-up Visit Follow-up Visit (Physician/CONFIGURATION TECHNICIAN (Physician/CONFIGURATION TECHNICIAN (Physician/CONFIGURATION TECHNICIAN ) ) ) Arrival Mode Ambulatory Ambulatory Ambulatory Transfer Assistance None Patient Identification Verified (Name & Yes Yes Yes ) Patient Requires Transmission-Based No Precautions Vital Signs Temperature (97.8 F-99.1 F) 98.4 F 96.5 F L 96.9 F L Temperature Source Temporal Temporal Temporal Pulse Rate (60-100) 108 H 79 80 Pulse Location Monitor Monitor Monitor Respiratory Rate (12-18) 18 18 18 Respiratory rate source Observation Observation Observation Oxygen Delivery Method Room Air Room Air Blood Pressure (90/60-120/80) 175/100 H 157/81 H 182/98 H Blood Pressure Mean (mm Hg) 125 106 126 Source Monitor Monitor Monitor Position Semi-Fowlers Semi-Fowlers Semi-Fowlers Blood Pressure Location Left Arm Right Arm Left Arm History Since Last Visit- (Skip if this is Patient's initial visit) Have you changed medications since your No No No last visit? Any new allergies or adverse reactions No No No Had a fall/change in ADL's that may No No No increase risk of falls Signs or symptoms of abuse and/or No No No neglect since last visit Have you been in the hospital since your No No No last visit? Has dressing in place as prescribed Yes Yes Yes Has compression in place as prescribed No Yes N/A Has offloadiing in place as prescribed No N/A N/A Experienced any changes in pain level or No No No management Left Footwear Regular Shoe Regular Shoe Right Footwear Regular Shoe Regular Shoe Pain Scale: 0-10 Numeric Is Patient Pain Free? No Yes Yes R foot -Description Burning -Intensity 3 -Duration (hours) Acute -Pain Behavior Withdrawal from Touch -Pain Aggravating Factors Exercise/ Activity, Walking -Alleviating Factors/Interventions Medication -Effectiveness of Alleviating Factor/ Moderately Intervention effective WC - Nurse 1 - General Ulcer Measurement Start: 06/01/25 08:11 Freq: Status: Active Protocol: Activity Type Activity Date Activity User E-sign Co-sign Detail Recorded Client Recorded Date Recorded By Document 06/01/25 08:11 [facility] [id number] 06/01/25 08:18 [facility] Document 06/08/25 08:13 KW [id number] 06/08/25 08:19 KW Document 06/15/25 08:26 KW [id number] 06/15/25 08:35 KW 06/01/25 06/08/25 06/15/25 08:11 08:13 08:26 Wound Center Nurse 1 17. left foot cluster -Exudate Amt Small -Exudate Type Serosanguineous -Wound Margin Thickened -Granulation Amt Large (67-100%) -Granulation Quality [place] -Texture (Milly-wound Skin Appearance) Assessed,Callus -Moisture (Milly-wound Skin Appearance) Dry/Scaly -Color (Milly-wound Skin Appearance) Assessed -Temperature (Milly-wound Skin No Abnormality Appearance) (Pt Warm) -Tenderness on Palpation (Milly-wound No Skin Appearance) -Ulcer Cleansing Soap and Water -Foul Odor after Cleansing No -Anesthetic Used 5% Lidocaine Gel 16. RLE deluna -Combined with other wound No -Current Size (cm) - Length 2.3 1 -Current Size (cm) - Width 1 1 -Current Size (cm) - Depth 0.2 0.1 -Total Square Cm 2.3 1 -Photo Taken Yes -Tunneling No -Undermining/Tunneling No -Circular Undermining No -Exudate Amt Medium Small None Present -Exudate Type Serosanguineous Serosanguineous -Wound Margin Distinct, Distinct, Indistinct, Non Outline Outline -Visible Attached Attached -Granulation Amt Medium (34-66%) Small (1-33%) -Granulation Quality [place] Red -Slough/Fibrin Yes -Necrosis Amt Medium (34-66%) -Necrotic Tissue Type Adherent Slough -Structure Exposed N/A -Texture (Milly-wound Skin Appearance) Assessed Assessed Assessed -Moisture (Milly-wound Skin Appearance) Assessed Assessed Assessed -Color (Milly-wound Skin Appearance) Assessed Assessed, Assessed Erythema -Temperature (Milly-wound Skin No Abnormality No Abnormality No Abnormality Appearance) (Pt Warm) (Pt Warm) (Pt Warm) -Tenderness on Palpation (Milly-wound No No No Skin Appearance) -Ulcer Cleansing Wound Cleanser Rinsed/ Soap and Water Irrigated with Saline -Foul Odor after Cleansing No No No -Anesthetic Used 5% Lidocaine 5% Lidocaine 5% Lidocaine Gel Gel Gel 15. R plantar -Combined with other wound No -Current Size (cm) - Length 4.7 5 -Current Size (cm) - Width 2.6 2.5 -Current Size (cm) - Depth 0.1 0.1 -Total Square Cm 12.22 12.5 -Photo Taken Yes -Tunneling No -Undermining/Tunneling No -Circular Undermining No -Exudate Amt Medium Medium Medium -Exudate Type Serosanguineous Serosanguineous Serosanguineous -Wound Margin Distinct, Distinct, Distinct, Outline Outline Outline Attached Attached Attached -Granulation Amt Medium (34-66%) Large (67-100%) Large (67-100%) -Granulation Quality [place] -Slough/Fibrin Yes -Necrosis Amt Medium (34-66%) Small (1-33%) -Necrotic Tissue Type Adherent Slough Adherent Slough -Structure Exposed N/A -Texture (Milly-wound Skin Appearance) Assessed,Callus Assessed,Callus Assessed,Callus -Moisture (Milly-wound Skin Appearance) Assessed Assessed Assessed,Dry/ Scaly -Color (Milly-wound Skin Appearance) Assessed Assessed Assessed -Temperature (Milly-wound Skin No Abnormality No Abnormality No Abnormality Appearance) (Pt Warm) (Pt Warm) (Pt Warm) -Tenderness on Palpation (Milly-wound No No No Skin Appearance) -Ulcer Cleansing Wound Cleanser Rinsed/ Soap and Water Irrigated with Saline -Foul Odor after Cleansing No No No -Anesthetic Used 5% Lidocaine 5% Lidocaine 5% Lidocaine Gel Gel Gel WC - Nurse 2 - General Ulcer CM Notes Start: 06/01/25 08:11 Freq: Status: Active Protocol: Activity Type Activity Date Activity User E-sign Co-sign Detail Recorded Client Recorded Date Recorded By Document 06/01/25 08:55 [id number] 06/01/25 09:21 GM Document 06/08/25 09:59 DS [id number] 06/08/25 10:18 DS Document 06/15/25 09:12 DS [id number] 06/15/25 09:21 DS 06/01/25 06/08/25 06/15/25 08:55 09:59 09:12 Wound Center Nurse 2 17. left foot cluster -Time 10:18 09:12 -Correct Patient Yes Yes -Correct Side, Site, Position Yes Yes -Correct Procedure Yes -Procedure Performed No Yes -Type of Procedure Debridement -Clinical Debridement Subcutaneous -Tissue Removed Subcutaneous -Post Debridement (cm) - Length 1.0 0.5 -Post Debridement (cm) - Width 1.0 0.8 -Post Debridement (cm) - Depth 0.1 0.1 -Total Square (Post) (cm) 1.00 0.40 -Area of Debridement (cm) - Length 1.0 0.5 -Area of Debridement (cm) - Width 1.0 0.8 -Total Square (Area) (cm) 1.00 0.40 -Tunneling No No -Undermining/Tunneling No No -Circular Undermining No No -Wound/Ulcer Outcome Not Healed Not Healed -Ulcer Cleansing Rinsed/ Irrigated with Saline -Foul Odor after Cleansing No -Bioengineered Tissue No -Bleeding Controlled with Pressure -Treatment Response Procedure Tolerated Well -Debridement - Subq, 1st 20sq cm No 16. RLE deluna -Time 08:56 09:59 09:12 -Correct Patient Yes Yes Yes -Correct Side, Site, Position Yes Yes Yes -Correct Procedure Yes Yes Yes -Procedure Performed Yes Yes Yes -Type of Procedure Debridement Debridement Debridement -Clinical Debridement Subcutaneous Subcutaneous Subcutaneous -Tissue Removed Subcutaneous Subcutaneous Subcutaneous -Post Debridement (cm) - Length 3.0 1.2 -Post Debridement (cm) - Width 1.7 1.0 -Post Debridement (cm) - Depth 0.1 0.1 -Total Square (Post) (cm) 5.10 1.20 -Area of Debridement (cm) - Length 3.0 1.2 -Area of Debridement (cm) - Width 1.7 1.0 -Total Square (Area) (cm) 5.10 1.20 -Tunneling No No No -Undermining/Tunneling No No No -Circular Undermining No No No -Wound/Ulcer Outcome Not Healed Not Healed Not Healed -Ulcer Cleansing Rinsed/ Rinsed/ Rinsed/ Irrigated with Irrigated with Irrigated with Saline Saline Saline -Foul Odor after Cleansing No No No -Bioengineered Tissue No No No -Bleeding Controlled with Pressure Pressure Pressure -Treatment Response Procedure Procedure Procedure Tolerated Well Tolerated Well Tolerated Well -Offloading No -Debridement - Subq, 1st 20sq cm Yes No No 15. R plantar -Time : 09:59 09:12 -Correct Patient Yes Yes Yes -Correct Side, Site, Position Yes Yes Yes -Correct Procedure Yes Yes Yes -Procedure Performed Yes Yes Yes -Type of Procedure Debridement Debridement Debridement -Clinical Debridement Subcutaneous Subcutaneous Subcutaneous -Tissue Removed Subcutaneous Subcutaneous Subcutaneous -Post Debridement (cm) - Length 5.0 4.2 3.5 -Post Debridement (cm) - Width 2.5 1.6 1.1 -Post Debridement (cm) - Depth 0.1 0.1 0.1 -Total Square (Post) (cm) 12.50 6.72 3.85 -Area of Debridement (cm) - Length 5.0 4.2 3.5 -Area of Debridement (cm) - Width 2.5 1.6 1.1 -Total Square (Area) (cm) 12.50 6.72 3.85 -Tunneling No No No -Undermining/Tunneling No No No -Circular Undermining No No No -Wound/Ulcer Outcome Not Healed Not Healed Not Healed -Ulcer Cleansing Rinsed/ Rinsed/ Rinsed/ Irrigated with Irrigated with Irrigated with Saline Saline Saline -Foul Odor after Cleansing No No No -Bioengineered Tissue No No No -Bleeding Controlled with Pressure Pressure Pressure -Treatment Response Procedure Procedure Procedure Tolerated Well Tolerated Well Tolerated Well -Offloading No -Debridement - Subq, 1st 20sq cm No Yes Yes Pain Scale: 0-10 Numeric Is Patient Pain Free? Yes Yes Yes WC - Nurse 3 - General Ulcer D/C NN Start: 06/01/25 08:11 Freq: Status: Active Protocol: Activity Type Activity Date Activity User E-sign Co-sign Detail Recorded Client Recorded Date Recorded By Document 06/01/25 09:27 RB [id number] 06/01/25 09:28 RB Edit Result 06/01/25 09:27 RB (1) [id number] 06/01/25 09:29 RB Document 06/08/25 10:27 KW [id number] 06/08/25 10:30 KW Document 06/15/25 09:46 RB [id number] 06/15/25 09:48 RB (1) 15. R plantar - Aquacel AG 4x4 1 => 2 06/01/25 06/08/25 06/15/25 09:27 10:27 09:46 Wound Care Center Nurse 3 17. left foot cluster -Ulcer Cleansing Rinsed/ Irrigated with Saline -Primary Dressing Applied Promogran Fibracol Plus 4x4 -Primary Dressing Covered/Secured with Dry Gauze & Dry Gauze & Roll Gauze Roll Gauze, Secured with Tape -Fibracol Plus 4x4 1 -Promogran 1 16. RLE deluna -Ulcer Cleansing Rinsed/ Irrigated with Saline -Primary Dressing Applied C Hydrogel NonAdherent Contact Layer -Other Dressing hydrogel hydrogel -Primary Dressing Covered/Secured with Dry Gauze,Dry Dry Gauze, Dry Gauze & Gauze & Roll Secured with Roll Gauze, Gauze,Secured Tape Secured with with Tape Tape -Hydrogel 1 15. R plantar -Ulcer Cleansing Rinsed/ Irrigated with Saline -Primary Dressing Applied Aquacel AG 4x4 Aquacel AG 4x4 -Other Dressing fibracol -Primary Dressing Covered/Secured with Dry Gauze,Dry Dry Gauze & Dry Gauze & Gauze & Roll Roll Gauze, Roll Gauze, Gauze,Secured Secured with Secured with with Tape Tape Tape -Aquacel AG 4x4 2 1 Treatment Response Procedure Procedure Tolerated Well Tolerated Well Pain Scale: 0-10 Numeric Is Patient Pain Free? Yes Yes Yes WC - Visit Discharge Discharge Condition Stable Stable Stable Ambulatory Status Ambulatory Ambulatory Ambulatory Transportation Private Auto Private Auto Private Auto Medication Reconcilliation completed & No No No provided to patient/care provider Clinical Summary of Care Provided Yes Yes Yes Additional Wound Wound debrided: right deluna Laterality: Right Type of Debridement: Excisional debridement Anesthesia Used: 4% Lidocaine Solution and 5% Lidocaine Gel Depth: Down to and including healthy tissue and in the subcutaneous layer Percentage of wound debrided: 100 Instrument Used: #15 blade Tissue Removed: Yellow slough, devitalized tissue Severity: Fat Layer Exposed Amount of bleeding with debridement: Mild Bleeding Controlled with: Compression and gauze Patient tolerated procedure: Patient tolerated procedure well Additional Wound Wound debrided: left plantar ulcer Laterality: Left Wound Grade/Stage: Delgado grade 1 Type of Debridement: Excisional debridement Anesthesia Used: 4% Lidocaine Solution Depth: Down to and including healthy tissue and in the subcutaneous layer Percentage of wound debrided: 100 Instrument Used: #15 blade Tissue Removed: Yellow slough, devitalized tissue Severity: Fat Layer Exposed Amount of bleeding with debridement: Mild Bleeding Controlled with: Compression and gauze Patient tolerated procedure: Patient tolerated procedure well Assessment/Plan Assessment/Plan (1) Decubitus ulcer of right foot: CODE(S): L89.899 - Pressure ulcer of other site, unspecified stage QUALIFIERS: Pressure injury stage: stage 2 Qualified Code(s): L89.892 - Pressure ulcer of other site, stage 2 (2) Ulcer of right deluna with fat layer exposed: CODE(S): L97.812 - Non-pressure chronic ulcer of other part of right lower leg with fat layer exposed (3) Diabetic foot ulcer associated with type 2 diabetes mellitus, with fat layer exposed: CODE(S): E11.621 - Type 2 diabetes mellitus with foot ulcer; L97.502 - Non-pressure chronic ulcer of other part of unspecified foot with fat layer exposed QUALIFIERS: Diabetic foot ulcer location: midfoot Laterality: left Qualified Code(s): E11.621 - Type 2 diabetes mellitus with foot ulcer; L97.422 - Non-pressure chronic ulcer of left heel and midfoot with fat layer exposed (4) Diabetes: CODE(S): E11.9 - Type 2 diabetes mellitus without complications QUALIFIERS: Diabetes mellitus type: type 2 Diabetes mellitus filling operator insulin use: with filling operator use Diabetes mellitus complication status: with hyperglycemia Qualified Code(s): E11.65 - Type 2 diabetes mellitus with hyperglycemia; Z79.4 - it software engineer (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) use of insulin (5) Uncontrolled diabetes mellitus: QUALIFIERS: Diabetes mellitus type: type 2 Glycemic state: with hyperglycemia Qualified Code(s): E11.65 - Type 2 diabetes mellitus with hyperglycemia (6) Diabetes mellitus type 2 with neurological manifestations: CODE(S): E11.49 - Type 2 diabetes mellitus with other diabetic neurological complication (7) Insulin dependent diabetes mellitus: (8) HTN (hypertension): CODE(S): I10 - Essential (primary) hypertension QUALIFIERS: Hypertension type: primary hypertension Qualified Code(s): I10 - Essential (primary) hypertension (9) Hyperlipidemia: CODE(S): E78.5 - Hyperlipidemia, unspecified QUALIFIERS: Hyperlipidemia type: unspecified Qualified Code(s): E78.5 - Hyperlipidemia, unspecified (10) PVD (peripheral vascular disease): CODE(S): I73.9 - Peripheral vascular disease, unspecified (11) PAD (peripheral artery disease): CODE(S): I73.9 - Peripheral vascular disease, unspecified (12) Venous insufficiency of both lower extremities: CODE(S): I87.2 - Venous insufficiency (chronic) (peripheral) (13) Diabetic ulcer of right foot associated with diabetes mellitus due to underlying condition, with fat layer exposed: CODE(S): E08.621 - Diabetes mellitus due to underlying condition with foot ulcer; L97.512 - Non-pressure chronic ulcer of other part of right foot with fat layer exposed QUALIFIERS: Diabetic foot ulcer location: midfoot Qualified Code(s): E08.621 - Diabetes mellitus due to underlying condition with foot ulcer; L97.412 - Non-pressure chronic ulcer of right heel and midfoot with fat layer exposed (14) Obesity: CODE(S): E66.9 - Obesity, unspecified QUALIFIERS: Obesity type: due to excess calories Obesity classification: adult class 1 (BMI 30 - 34.9) Serious obesity comorbidity presence: with serious comorbidity Body mass index: BMI 31.0-31.9 Qualified Code(s): E66.811 - Obesity, class 1; E66.09 - Other obesity due to excess calories; Z68.31 - Body mass index [BMI] 31.0-31.9, adult PLAN: Plan Evaluation and debridement performed today in clinic as annotated above. At home wound-care instructions: He will dress his right foot ulcer daily with Promogran and gauze or ABD after washing with surgical wash. He will use hydrogel to his right deluna and promogran to his left medial plantar ulcer. Keep dressings dry and intact. Off-loading: The patient was instructed to avoid pressure and friction on the affected areas. Reposition every 2 hours at minimum. Avoid prolonged standing and/or dangling of legs. When seated, feet should be elevated at chest level. Frequent ambulation is encouraged. Diet: Patient encouraged to increase protein intake while taking caution to avoid high carbohydrate and/or sugar intake and try to achieve A1C if 7.5% or less. Currently 13.2% at last check. Labs/cultures/imaging: Culture results reviewed and were positive for Pseudomonas, Staph, Strep and Cornyebacteria. Anaerobic culture results are still pending. He completed Linezolid and Ciprofloxacin. Follow-up: Return in 1 week for wound care follow up. Return sooner or report to the emergency room should symptoms worsen, or new symptoms arise. Note: [employer] speech recognition organic extractions technician software was used to create portions of this document. Sound-alike and misspelled words, as well as other organic extractions technician errors may be contained in the documentation.
--- NOTE | 2025-06-19 09:24 | WC ---
PHOTO-RIGHT PLANTAR 06/15/25
--- NOTE | 2025-06-19 09:35 | WC ---
PHOTO-RIGHT SHARP 06/15/25
--- NOTE | 2025-06-19 09:38 | WC ---
PHOTO-LEFT FOOT CLUSTER 06/15/25
== END 2025-06-21 23:59 | disposition home or self-care (01) ==
LOC: WC 08:30
PROVIDERS: PCP Family Medicine; Referring Provider Family Medicine; Visit Provider Family Medicine
DX: E11.621 Type 2 diabetes mellitus with foot ulcer (principal); E11.622 Type 2 diabetes mellitus with other skin ulcer; L97.512 Non-pressure chronic ulcer of other part of right foot with fat layer exposed; L97.812 Non-pressure chronic ulcer of other part of right lower leg with fat layer exposed; E11.51 Type 2 diabetes mellitus with diabetic peripheral angiopathy without gangrene; E11.59 Type 2 diabetes mellitus with other circulatory complications; I89.0 Lymphedema, not elsewhere classified; I87.2 Venous insufficiency (chronic) (peripheral)
CPT/HCPCS: 11042

== ENCOUNTER → 2025-06-18 | Outpatient (CLI) | payer OTHER, SELFPAY ==
[2025-06-18 10:57] LABS: Hematocrit 41.0 % (40-54); Hemoglobin 14.1 g/dL (13.0-16.5); Immature Granulocytes Count 0.040 X10^3/uL (0.0-0.0); Mean Corp Hgb Conc 34.4 g/dL (32-36); Mean Corpuscular Volume 81.7 fL (80-94); Mean Platelet Vol. 11.4 fl (6.2-12.0); NRBC Flagged by Analyzer 0 % (0-5); Platelet Count 239 K/mm3 (150-450); RBC Distribution Width CV 13.5 % (11.6-14.6); RBC Distribution Width SD 39.5 fl (35.1-43.9); Red Blood Count 5.02 M/mm3 (4.6-6.2); White Blood Count 6.4 K/mm3 (4.4-11.0)
[2025-06-18 11:18] LABS: Creatinine, Urine (random) 87.30 mg/dL (39.00-259.00); Microalbumin,Random Urine 196.0 mg/L (<20 mg/L)
[2025-06-18 11:32] LABS: AST(SGOT) 20 U/L (<=37); Alanine Aminotransfer ALT/SGPT 19 U/L (<=46); Albumin, Serum 3.9 g/dL (3.5-5.0); Alkaline Phosphatase 114 U/L (40-129); Anion Gap 14 (5-15); BUN 13 mg/dL (4-19); BUN/Creat Ratio 15.7 RATIO (10-20); Calcium,Total 9.3 mg/dL (7.6-11.0); Carbon Dioxide 22.0 mmol/L (21.0-32.0); Chloride 95 mmol/L (98-108); Cholesterol 216 mg/dL (<=200); Globulin 2.8 g/dL (2.2-4.2); Glucose 379 mg/dL (70-99); Low Density Lipoprotein Calc. 132 mg/dL; Potassium 4.4 mmol/L (3.3-5.1); Triglycerides 163 mg/dL; Very Low Density Lipoprotein 33 mg/dL (5-40); cholesterol:hdl ratio screen 4.24
[2025-06-18 11:33] LABS: Vitamin D,25 Hydroxy 23.6 ng/mL (30-100)
== END | disposition home or self-care (01) ==
LOC: MTLAB 08:57
PROVIDERS: Nurse Practitioner Family; PCP Family Medicine; Referring Provider Family Medicine; Visit Provider Family Medicine
DX: Z00.00 Encounter for general adult medical examination without abnormal findings (principal); E11.621 Type 2 diabetes mellitus with foot ulcer; E11.65 Type 2 diabetes mellitus with hyperglycemia; Z79.4 Long term (current) use of insulin
CPT/HCPCS: 36415; 80053; 80061; 82043; 82306; 82570; 84443; 85025

== ENCOUNTER 2025-07-20 08:00 | Outpatient (RCR) | payer OTHER, SELFPAY ==
[2025-06-22 08:24] VITALS: BP 149/95; PULSE 111; RESP 18; TEMP 36.1
--- NOTE | 2025-06-22 15:07 | PCM.WC.PN ---
History of Present Illness Date of Service: 06/22/25 Chief Complaint: right lateral plantar ulcer, right deluna History of Wound: David is a 54 year old male that presents to the wound center for evaluation and treatment of an ulcer of his right foot. The ulcer appeared approximately a week ago. He noticed blood coming from his shoe and there was a blister that had broken open. He has been applying gauze and washing with soap daily to treat the ulcer and was seen at urgent care and started on doxycycline. A wound culture was taken and results showed multiple bacteria with Pseudomonas, Staph and Strep. Anaerobic culture is still pending. He denies systemic symptoms such as fever, chills, erythema, odor. He is struggling financially to afford supplies, medications and taking care of his home and financial responsibilities. He works at the [employer] and he is on his feet all the time there. His last A1C was 01/2025 and was 13.2 %. He is a very poorly controlled diabetic on insulin. He does not have diabetic shoes. He does see Dr. Ozuna for podiatry for diabetic foot exams. 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 He also had repeat venous testing 04/08/23 which showed incompetence and vascular surgery was considered but was not done at that time. He has not been able to place compression because he is unable to bend to pull on compression stockings due to arthritis in his back. He is not able to wrap with RADHA bandages either. Circaids were tried previously but he was unable to do this as well. He has been wearing tubigrips for compression. He states he still has issues getting them on at times when his back is flared up. He has chronic lymphedema. Subjective Subjective Kian returns today for treatment of his right deluna ulcer and right plantar ulcer. He has had improvement in size of ulcer. Unfortunately he developed a crack in his left heel which now is an ulcer. He is tolerating dressing changes. He is offloading and has not been working in order to heal his foot ulcer. He denies increased pain, odor or drainage. Objective Data Objective Data Vital Signs: Vital Signs Temp Pulse Resp BP O2 Del Method 97.0 F L 111 H 18 149/95 H Room Air 06/22/25 08:24 06/22/25 08:24 06/22/25 08:24 06/22/25 08:24 06/22/25 08:24 Oxygen Delivery Method Room Air Physical Exam Const alert, oriented x3 and no apparent distress General Appearance: cooperative and comfortable HEENT normocephalic and head/scalp atraumatic Resp normal respiratory effort Effort and Inspection: able to speak in complete sentences Cardio regular rate and regular rhythm Skin Wounds: wounds noted Wound Narrative: as in clinical panel moderate slough and callous formation which were debrided with 15 blade and pick ups with beveled edges and granulation tissue present to right plantar, left plantar and right deluna, left heel Psych mental status grossly normal, thought process normal, cooperative and affect normal Debridement Note Debridement Note Wound debrided: right plantar ulcer Laterality: Right Type of Debridement: Excisional debridement Anesthesia Used: 4% Lidocaine Solution and 5% Lidocaine Gel Depth: Down to and including healthy tissue and in the subcutaneous layer Percentage of wound debrided: 100 Instrument Used: #15 blade and Forceps Tissue Removed: Yellow slough, devitalized tissue Severity: Fat Layer Exposed Amount of bleeding with debridement: Mild Bleeding Controlled with: Compression and gauze Patient tolerated procedure: Patient tolerated procedure well Post-Debridement Measurements and Additional Note: Post-Debridement Measurements/Treatment - Nurse 1 - General Ulcer Assessment Start: 06/22/25 08:23 Freq: Status: Active Protocol: MART Activity Type Activity Date Activity User E-sign Co-sign Detail Recorded Client Recorded Date Recorded By Document 06/22/25 08:24 DEDRICK [id number] 06/22/25 08:34 DEDRICK 06/22/25 08:24 - Today's Visit Information 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 service 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 Any new allergies or adverse reactions No Had a fall/change in ADL's that may No increase risk of falls Signs or symptoms of abuse and/or No neglect since last visit Have you been in the hospital since your No last visit? Has dressing in place as prescribed Yes Has compression in place as prescribed N/A Has offloadiing in place as prescribed N/A Experienced any changes in pain level or No management Left Footwear Regular Shoe Right Footwear Regular Shoe Pain Scale: 0-10 Numeric Is Patient Pain Free? Yes WC - Nurse 1 - General Ulcer Measurement Start: 06/22/25 08:23 Freq: Status: Active Protocol: Activity Type Activity Date Activity User E-sign Co-sign Detail Recorded Client Recorded Date Recorded By Document 06/22/25 08:24 [email or web address] [id number] 06/22/25 08:34 KW 06/22/25 08:24 Wound Center Nurse 1 18 LT HEEL -Current Size (cm) - Length 0.3 -Current Size (cm) - Width 0.3 -Current Size (cm) - Depth 0.1 -Total Square Cm 0.09 -Date of Last Picture (Recall this 06/22/25 field) -Exudate Amt Small -Exudate Type Serosanguineous -Wound Margin Thickened -Granulation Amt Large (67-100%) -Granulation Quality [place] -Texture (Milly-wound Skin Appearance) Assessed,Callus -Moisture (Milly-wound Skin Appearance) Assessed -Color (Milly-wound Skin Appearance) Assessed -Temperature (Milly-wound Skin No Abnormality Appearance) (Pt Warm) -Tenderness on Palpation (Milly-wound No Skin Appearance) -Ulcer Cleansing Soap and Water -Foul Odor after Cleansing No -Anesthetic Used 5% Lidocaine Gel 16. RLE deluna cluster -Current Size (cm) - Length 11 -Current Size (cm) - Width 8 -Current Size (cm) - Depth 0.1 -Total Square Cm 88 -Date of Last Picture (Recall this 06/22/25 field) -Exudate Amt Medium -Exudate Type Serosanguineous -Wound Margin Distinct, Outline Attached -Granulation Amt Large (67-100%) -Granulation Quality Red -Texture (Milly-wound Skin Appearance) Assessed -Moisture (Milly-wound Skin Appearance) Assessed,Dry/ Scaly -Color (Milly-wound Skin Appearance) Assessed, Erythema -Temperature (Milly-wound Skin No Abnormality Appearance) (Pt Warm) -Tenderness on Palpation (Milly-wound No Skin Appearance) -Ulcer Cleansing Soap and Water -Foul Odor after Cleansing No -Anesthetic Used 5% Lidocaine Gel 15. R plantar -Current Size (cm) - Length 3 -Current Size (cm) - Width 1 -Current Size (cm) - Depth 0.1 -Total Square Cm 3 -Date of Last Picture (Recall this 06/22/25 field) -Exudate Amt Small -Exudate Type Serosanguineous -Wound Margin Distinct, Outline Attached -Granulation Amt Large (67-100%) -Granulation Quality [place] -Necrosis Amt Small (1-33%) -Necrotic Tissue Type Adherent Slough -Texture (Milly-wound Skin Appearance) Assessed,Callus -Moisture (Milly-wound Skin Appearance) Assessed -Color (Milly-wound Skin Appearance) Assessed -Temperature (Milly-wound Skin No Abnormality Appearance) (Pt Warm) -Tenderness on Palpation (Milly-wound No Skin Appearance) -Ulcer Cleansing Soap and Water -Foul Odor after Cleansing No -Anesthetic Used 5% Lidocaine Gel WC - Nurse 2 - General Ulcer CM Notes Start: 06/22/25 08:23 Freq: Status: Active Protocol: Activity Type Activity Date Activity User E-sign Co-sign Detail Recorded Client Recorded Date Recorded By Document 06/22/25 09:19 [id number] 06/22/25 09:39 06/22/25 09:19 Wound Center Nurse 2 18 LT HEEL -Time 09:19 -Correct Patient Yes -Correct Side, Site, Position Yes -Correct Procedure Yes -Procedure Performed Yes -Type of Procedure Debridement -Clinical Debridement Subcutaneous -Tissue Removed Subcutaneous -Post Debridement (cm) - Length 1.0 -Post Debridement (cm) - Width 1.0 -Post Debridement (cm) - Depth 0.1 -Total Square (Post) (cm) 1.00 -Area of Debridement (cm) - Length 1.0 -Area of Debridement (cm) - Width 1.0 -Total Square (Area) (cm) 1.00 -Tunneling No -Undermining/Tunneling No -Circular Undermining No -Wound/Ulcer Outcome Not Healed -Ulcer Cleansing Rinsed/ Irrigated with Saline -Foul Odor after Cleansing No -Bioengineered Tissue No -Bleeding Controlled with Pressure -Treatment Response Procedure Tolerated Well -Offloading No -Debridement - Subq, 1st 20sq cm No 16. RLE deluna cluster -Time 09:19 -Correct Patient Yes -Correct Side, Site, Position Yes -Correct Procedure Yes -Procedure Performed Yes -Type of Procedure Debridement -Clinical Debridement Subcutaneous -Tissue Removed Subcutaneous -Post Debridement (cm) - Length 2.5 -Post Debridement (cm) - Width 1.0 -Post Debridement (cm) - Depth 0.1 -Total Square (Post) (cm) 2.50 -Area of Debridement (cm) - Length 2.5 -Area of Debridement (cm) - Width 1.0 -Total Square (Area) (cm) 2.50 -Tunneling No -Undermining/Tunneling No -Circular Undermining No -Wound/Ulcer Outcome Not Healed -Ulcer Cleansing Rinsed/ Irrigated with Saline -Foul Odor after Cleansing No -Bioengineered Tissue No -Bleeding Controlled with Pressure -Treatment Response Procedure Tolerated Well -Debridement - Subq, 1st 20sq cm No 15. R plantar -Time 09:19 -Correct Patient Yes -Correct Side, Site, Position Yes -Correct Procedure Yes -Procedure Performed Yes -Type of Procedure Debridement -Clinical Debridement Subcutaneous -Tissue Removed Subcutaneous -Post Debridement (cm) - Length 3.0 -Post Debridement (cm) - Width 0.5 -Post Debridement (cm) - Depth 0.1 -Total Square (Post) (cm) 1.50 -Area of Debridement (cm) - Length 3.0 -Area of Debridement (cm) - Width 0.5 -Total Square (Area) (cm) 1.50 -Tunneling No -Undermining/Tunneling No -Circular Undermining No -Wound/Ulcer Outcome Not Healed -Ulcer Cleansing Rinsed/ Irrigated with Saline -Foul Odor after Cleansing No -Bioengineered Tissue No -Bleeding Controlled with Pressure -Treatment Response Procedure Tolerated Well -Offloading No -Debridement - Subq, 1st 20sq cm Yes Pain Scale: 0-10 Numeric Is Patient Pain Free? Yes WC - Nurse 3 - General Ulcer D/C NN Start: 06/22/25 08:23 Freq: Status: Active Protocol: Activity Type Activity Date Activity User E-sign Co-sign Detail Recorded Client Recorded Date Recorded By Document 06/22/25 09:52 KW [id number] 06/22/25 09:53 KW 06/22/25 09:52 Wound Care Center Nurse 3 18 LT HEEL -Primary Dressing Applied Promogran -Other Dressing lightly moisten the promogran -Primary Dressing Covered/Secured with Dry Gauze & Roll Gauze, Secured with Tape -Promogran 1 16. RLE deluna cluster -Other Dressing hydrogel -Primary Dressing Covered/Secured with Dry Gauze, Secured with Tape 15. R plantar -Other Dressing hydrogel -Primary Dressing Covered/Secured with Dry Gauze, Secured with Tape Pain Scale: 0-10 Numeric Is Patient Pain Free? Yes WC - Visit Discharge Discharge Condition Stable Ambulatory Status Ambulatory Transportation Private Auto Medication Reconcilliation completed & No provided to patient/care provider Clinical Summary of Care Provided Yes Additional Wound Wound debrided: right deluna Laterality: Right Type of Debridement: Excisional debridement Anesthesia Used: 4% Lidocaine Solution and 5% Lidocaine Gel Depth: Down to and including healthy tissue and in the subcutaneous layer Percentage of wound debrided: 100 Instrument Used: #15 blade Tissue Removed: Yellow slough, devitalized tissue Severity: Fat Layer Exposed Amount of bleeding with debridement: Mild Bleeding Controlled with: Compression and gauze Patient tolerated procedure: Patient tolerated procedure well Additional Wound Wound debrided: left plantar ulcer Laterality: Left Wound Grade/Stage: Delgado grade 1 Type of Debridement: Excisional debridement Anesthesia Used: 4% Lidocaine Solution Depth: Down to and including healthy tissue and in the subcutaneous layer Percentage of wound debrided: 100 Instrument Used: #15 blade Tissue Removed: Yellow slough, devitalized tissue Severity: Fat Layer Exposed Amount of bleeding with debridement: Mild Bleeding Controlled with: Compression and gauze Patient tolerated procedure: Patient tolerated procedure well Additional Wound Wound debrided: left heel Laterality: Left Wound Grade/Stage: Grade 1 Type of Debridement: Excisional debridement Anesthesia Used: 4% Lidocaine Solution and 5% Lidocaine Gel Depth: Down to and including healthy tissue and in the subcutaneous layer Percentage of wound debrided: 100 Instrument Used: #15 blade and Forceps Tissue Removed: Yellow slough, devitalized tissue Severity: Fat Layer Exposed Amount of bleeding with debridement: Mild Bleeding Controlled with: Compression and gauze Patient tolerated procedure: Patient tolerated procedure well Assessment/Plan Assessment/Plan (1) Decubitus ulcer of right foot: CODE(S): L89.899 - Pressure ulcer of other site, unspecified stage QUALIFIERS: Pressure injury stage: stage 2 Qualified Code(s): L89.892 - Pressure ulcer of other site, stage 2 (2) Ulcer of right deluna with fat layer exposed: CODE(S): L97.812 - Non-pressure chronic ulcer of other part of right lower leg with fat layer exposed (3) Diabetic foot ulcer associated with type 2 diabetes mellitus, with fat layer exposed: CODE(S): E11.621 - Type 2 diabetes mellitus with foot ulcer; L97.502 - Non-pressure chronic ulcer of other part of unspecified foot with fat layer exposed QUALIFIERS: Diabetic foot ulcer location: midfoot Laterality: left Qualified Code(s): E11.621 - Type 2 diabetes mellitus with foot ulcer; L97.422 - Non-pressure chronic ulcer of left heel and midfoot with fat layer exposed (4) Diabetes: CODE(S): E11.9 - Type 2 diabetes mellitus without complications QUALIFIERS: Diabetes mellitus complication status: with hyperglycemia Diabetes mellitus mcc insulin use: with mcc use Diabetes mellitus type: type 2 Qualified Code(s): E11.65 - Type 2 diabetes mellitus with hyperglycemia; 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 (5) Uncontrolled diabetes mellitus: QUALIFIERS: Diabetes mellitus type: type 2 Glycemic state: with hyperglycemia Qualified Code(s): E11.65 - Type 2 diabetes mellitus with hyperglycemia (6) Diabetes mellitus type 2 with neurological manifestations: CODE(S): E11.49 - Type 2 diabetes mellitus with other diabetic neurological complication (7) Insulin dependent diabetes mellitus: (8) HTN (hypertension): CODE(S): I10 - Essential (primary) hypertension QUALIFIERS: Hypertension type: primary hypertension Qualified Code(s): I10 - Essential (primary) hypertension (9) Hyperlipidemia: CODE(S): E78.5 - Hyperlipidemia, unspecified QUALIFIERS: Hyperlipidemia type: unspecified Qualified Code(s): E78.5 - Hyperlipidemia, unspecified (10) PVD (peripheral vascular disease): CODE(S): I73.9 - Peripheral vascular disease, unspecified (11) PAD (peripheral artery disease): CODE(S): I73.9 - Peripheral vascular disease, unspecified (12) Venous insufficiency of both lower extremities: CODE(S): I87.2 - Venous insufficiency (chronic) (peripheral) (13) Diabetic ulcer of right foot associated with diabetes mellitus due to underlying condition, with fat layer exposed: CODE(S): E08.621 - Diabetes mellitus due to underlying condition with foot ulcer; L97.512 - Non-pressure chronic ulcer of other part of right foot with fat layer exposed QUALIFIERS: Diabetic foot ulcer location: midfoot Qualified Code(s): E08.621 - Diabetes mellitus due to underlying condition with foot ulcer; L97.412 - Non-pressure chronic ulcer of right heel and midfoot with fat layer exposed (14) Obesity: CODE(S): E66.9 - Obesity, unspecified QUALIFIERS: Body mass index: BMI 31.0-31.9 Obesity classification: adult class 1 (BMI 30 - 34.9) Obesity type: due to excess calories Serious obesity comorbidity presence: with serious comorbidity Qualified Code(s): E66.811 - Obesity, class 1; E66.09 - Other obesity due to excess calories; Z68.31 - Body mass index [BMI] 31.0-31.9, adult PLAN: Plan Evaluation and debridement performed today in clinic as annotated above. At home wound-care instructions: He will dress his right foot ulcer daily with hydrogel and gauze or ABD after washing with surgical wash. He will use hydrogel to his right deluna and his left medial plantar ulcer. Keep dressings dry and intact. Off-loading: The patient was instructed to avoid pressure and friction on the affected areas. Reposition every 2 hours at minimum. Avoid prolonged standing and/or dangling of legs. When seated, feet should be elevated at chest level. Frequent ambulation is encouraged. Diet: Patient encouraged to increase protein intake while taking caution to avoid high carbohydrate and/or sugar intake and try to achieve A1C if 7.5% or less. Currently 13.2% at last check. Labs/cultures/imaging: Culture results reviewed and were positive for Pseudomonas, Staph, Strep and Cornyebacteria. He completed Linezolid and Ciprofloxacin. Follow-up: Return in 1 week for wound care follow up. Return sooner or report to the emergency room should symptoms worsen, or new symptoms arise. Note: [employer] speech recognition real estate clerk software was used to create portions of this document. Sound-alike and misspelled words, as well as other real estate clerk errors may be contained in the documentation.
--- NOTE | 2025-06-25 10:32 | WC ---
PHOTO-RIGHT SHARP 06/22/25
--- NOTE | 2025-06-25 10:33 | WC ---
PHOTO-RIGHT PLANTAR 06/22/25
--- NOTE | 2025-06-25 10:35 | WC ---
PHOTO-LEFT FOOT CLUSTER 06/22/25
[2025-06-29 08:35] VITALS: BP 165/90; PULSE 91; RESP 18; TEMP 36.3
--- NOTE | 2025-06-29 14:23 | PN.PCM_ITS ---
History of Present Illness Date of Service: 06/29/25 Chief Complaint: right lateral plantar ulcer, right deluna History of Wound: David is a 54 year old male that presents to the wound center for evaluation and treatment of an ulcer of his right foot. The ulcer appeared approximately a week ago. He noticed blood coming from his shoe and there was a blister that had broken open. He has been applying gauze and washing with soap daily to treat the ulcer and was seen at urgent care and started on doxycycline. A wound culture was taken and results showed multiple bacteria with Pseudomonas, Staph and Strep. Anaerobic culture is still pending. He denies systemic symptoms such as fever, chills, erythema, odor. He is struggling financially to afford supplies, medications and taking care of his home and financial responsibilities. 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 His last A1C was 01/2025 and was 13.2 %. He is a very poorly controlled diabetic on insulin. He does not have diabetic shoes. He does see Dr. Ozuna for podiatry for diabetic foot exams. 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 He also had repeat venous testing 04/08/23 which showed incompetence and vascular surgery was considered but was not done at that time. He has not been able to place compression because he is unable to bend to pull on compression stockings due to arthritis in his back. He is not able to wrap with RADHA bandages either. Circaids were tried previously but he was unable to do this as well. He has been wearing tubigrips for compression. He states he still has issues getting them on at times when his back is flared up. He has chronic lymphedema. Subjective Subjective Kian returns today for treatment of his right deluna ulcer and right plantar ulcer. He has had improvement in size of ulcer. Unfortunately he developed a crack in his left heel which now is an ulcer. He is tolerating dressing changes. He is offloading and has not been working in order to heal his foot ulcer. He denies increased pain, odor or drainage. Objective Data Objective Data Vital Signs: Vital Signs Temp Pulse Resp BP O2 Del Method 97.4 F L 91 18 165/90 H Room Air 06/29/25 08:35 06/29/25 08:35 06/29/25 08:35 06/29/25 08:35 06/22/25 08:24 Oxygen Delivery Method Room Air Physical Exam Const alert, oriented x3 and no apparent distress General Appearance: cooperative and comfortable HEENT normocephalic and head/scalp atraumatic Resp normal respiratory effort Effort and Inspection: able to speak in complete sentences Cardio regular rate and regular rhythm Skin Wounds: wounds noted Wound Narrative: as in clinical panel moderate slough and callous formation which were debrided with 15 blade and pick ups with beveled edges and granulation tissue present to right plantar, left plantar and right deluna, left heel Psych mental status grossly normal, thought process normal, cooperative and affect normal Debridement Note Debridement Note Wound debrided: right plantar ulcer Laterality: Right Type of Debridement: Excisional debridement Anesthesia Used: 4% Lidocaine Solution and 5% Lidocaine Gel Depth: Down to and including healthy tissue and in the subcutaneous layer Percentage of wound debrided: 100 Instrument Used: 5mm curette Tissue Removed: Yellow slough, devitalized tissue Severity: Fat Layer Exposed Amount of bleeding with debridement: Mild Bleeding Controlled with: Compression and gauze Patient tolerated procedure: Patient tolerated procedure well Post-Debridement Measurements and Additional Note: Post-Debridement Measurements/Treatment - Nurse 1 - General Ulcer Assessment Start: 06/22/25 08:23 Freq: Status: Active Protocol: MART Activity Type Activity Date Activity User E-sign Co-sign Detail Recorded Client Recorded Date Recorded By Document 06/22/25 08:24 KW [id number] 06/22/25 08:34 KW Document 06/29/25 08:35 RB [id number] 06/29/25 08:38 RB 06/22/25 06/29/25 08:24 08:35 - Today's Visit Information Type of service Follow-up Visit Follow-up Visit (Physician/IT SPECIALIST (Physician/IT SPECIALIST ) ) Arrival Mode Ambulatory Ambulatory Transfer Assistance None Patient Identification Verified (Name & Yes Yes ) Patient Requires Transmission-Based No Precautions Vital Signs Temperature (97.8 F-99.1 F) 97.0 F L 97.4 F L Temperature Source Temporal Temporal Pulse Rate (60-100) 111 H 91 Pulse Location Monitor Monitor Respiratory Rate (12-18) 18 18 Respiratory rate source Observation Observation Oxygen Delivery Method Room Air Blood Pressure (90/60-120/80) 149/95 H 165/90 H Blood Pressure Mean (mm Hg) 113 115 Source Monitor Monitor Position Sitting Sitting Blood Pressure Location Left Arm Left Arm History Since Last Visit- (Skip if this is Patient's initial visit) Have you changed medications since your No No last visit? Any new allergies or adverse reactions No No Had a fall/change in ADL's that may No No increase risk of falls Signs or symptoms of abuse and/or No No neglect since last visit Have you been in the hospital since your No No last visit? Has dressing in place as prescribed Yes Yes Has compression in place as prescribed N/A N/A Has offloadiing in place as prescribed N/A N/A Experienced any changes in pain level or No No management Left Footwear Regular Shoe Right Footwear Regular Shoe Pain Scale: 0-10 Numeric Is Patient Pain Free? Yes Yes WC - Nurse 1 - General Ulcer Measurement Start: 06/22/25 08:23 Freq: Status: Active Protocol: Activity Type Activity Date Activity User E-sign Co-sign Detail Recorded Client Recorded Date Recorded By Document 06/22/25 08:24 KW [id number] 06/22/25 08:34 KW Document 06/29/25 08:35 RB [id number] 06/29/25 08:38 RB 06/22/25 06/29/25 08:24 08:35 Wound Center Nurse 1 18 LT HEEL -Combined with other wound No -Current Size (cm) - Length 0.3 0.5 -Current Size (cm) - Width 0.3 1.5 -Current Size (cm) - Depth 0.1 0.1 -Total Square Cm 0.09 0.75 -Date of Last Picture (Recall this 06/22/25 field) -Photo Taken Yes -Tunneling No -Undermining/Tunneling No -Circular Undermining No -Exudate Amt Small Medium -Exudate Type Serosanguineous Serosanguineous -Wound Margin Thickened Distinct, Outline Attached -Granulation Amt Large (67-100%) Medium (34-66%) -Granulation Quality Flaxton Flaxton -Slough/Fibrin Yes -Necrosis Amt Medium (34-66%) -Necrotic Tissue Type Adherent Slough -Structure Exposed N/A -Texture (Milly-wound Skin Appearance) Assessed,Callus Assessed,Callus -Moisture (Milly-wound Skin Appearance) Assessed Assessed -Color (Milly-wound Skin Appearance) Assessed Assessed -Temperature (Milly-wound Skin No Abnormality No Abnormality Appearance) (Pt Warm) (Pt Warm) -Tenderness on Palpation (Milly-wound No No Skin Appearance) -Ulcer Cleansing Soap and Water Wound Cleanser -Foul Odor after Cleansing No No -Anesthetic Used 5% Lidocaine 5% Lidocaine Gel Gel 16. RLE deluna cluster -Combined with other wound No -Current Size (cm) - Length 11 0.1 -Current Size (cm) - Width 8 0.1 -Current Size (cm) - Depth 0.1 0.1 -Total Square Cm 88 0.01 -Date of Last Picture (Recall this 06/22/25 field) -Photo Taken Yes -Tunneling No -Undermining/Tunneling No -Circular Undermining No -Exudate Amt Medium Small -Exudate Type Serosanguineous Serosanguineous -Wound Margin Distinct, Distinct, Outline Outline Attached Attached -Granulation Amt Large (67-100%) Medium (34-66%) -Granulation Quality Red Flaxton -Slough/Fibrin Yes -Necrosis Amt Medium (34-66%) -Necrotic Tissue Type Adherent Slough -Structure Exposed N/A -Texture (Milly-wound Skin Appearance) Assessed Assessed -Moisture (Milly-wound Skin Appearance) Assessed,Dry/ Assessed Scaly -Color (Milly-wound Skin Appearance) Assessed, Assessed Erythema -Temperature (Milly-wound Skin No Abnormality No Abnormality Appearance) (Pt Warm) (Pt Warm) -Tenderness on Palpation (Milly-wound No No Skin Appearance) -Ulcer Cleansing Soap and Water Wound Cleanser -Foul Odor after Cleansing No No -Anesthetic Used 5% Lidocaine 5% Lidocaine Gel Gel 15. R plantar -Combined with other wound No -Current Size (cm) - Length 3 0.1 -Current Size (cm) - Width 1 0.1 -Current Size (cm) - Depth 0.1 0.1 -Total Square Cm 3 0.01 -Date of Last Picture (Recall this 06/22/25 field) -Photo Taken Yes -Tunneling No -Undermining/Tunneling No -Circular Undermining No -Exudate Amt Small Small -Exudate Type Serosanguineous Serosanguineous -Wound Margin Distinct, Distinct, Outline Outline Attached Attached -Granulation Amt Large (67-100%) Medium (34-66%) -Granulation Quality Flaxton Flaxton -Slough/Fibrin Yes -Necrosis Amt Small (1-33%) Medium (34-66%) -Necrotic Tissue Type Adherent Slough Adherent Slough -Structure Exposed N/A -Texture (Milly-wound Skin Appearance) Assessed,Callus Assessed,Callus -Moisture (Milly-wound Skin Appearance) Assessed Assessed -Color (Milly-wound Skin Appearance) Assessed Assessed -Temperature (Milly-wound Skin No Abnormality No Abnormality Appearance) (Pt Warm) (Pt Warm) -Tenderness on Palpation (Milly-wound No No Skin Appearance) -Ulcer Cleansing Soap and Water Wound Cleanser -Foul Odor after Cleansing No No -Anesthetic Used 5% Lidocaine 5% Lidocaine Gel Gel WC - Nurse 2 - General Ulcer CM Notes Start: 06/22/25 08:23 Freq: Status: Active Protocol: Activity Type Activity Date Activity User E-sign Co-sign Detail Recorded Client Recorded Date Recorded By Document 06/22/25 09:19 [id number] 06/22/25 09:39 Document 06/29/25 09:06 [id number] 06/29/25 09:27 06/22/25 06/29/25 09:19 09:06 Wound Center Nurse 2 18 LT HEEL -Time 09:19 09:08 -Correct Patient Yes Yes -Correct Side, Site, Position Yes Yes -Correct Procedure Yes Yes -Procedure Performed Yes Yes -Type of Procedure Debridement Debridement -Clinical Debridement Subcutaneous Subcutaneous -Tissue Removed Subcutaneous Subcutaneous -Post Debridement (cm) - Length 1.0 0.5 -Post Debridement (cm) - Width 1.0 1.5 -Post Debridement (cm) - Depth 0.1 0.1 -Total Square (Post) (cm) 1.00 0.75 -Area of Debridement (cm) - Length 1.0 0.5 -Area of Debridement (cm) - Width 1.0 1.5 -Total Square (Area) (cm) 1.00 0.75 -Tunneling No No -Undermining/Tunneling No No -Circular Undermining No No -Wound/Ulcer Outcome Not Healed Not Healed -Ulcer Cleansing Rinsed/ Rinsed/ Irrigated with Irrigated with Saline Saline -Foul Odor after Cleansing No No -Bioengineered Tissue No No -Bleeding Controlled with Pressure -Treatment Response Procedure Tolerated Well -Offloading No -Debridement - Subq, 1st 20sq cm No No 16. RLE deluna cluster -Time 09:19 09:09 -Correct Patient Yes Yes -Correct Side, Site, Position Yes Yes -Correct Procedure Yes Yes -Procedure Performed Yes Yes -Type of Procedure Debridement Debridement -Clinical Debridement Subcutaneous Subcutaneous -Tissue Removed Subcutaneous Subcutaneous -Post Debridement (cm) - Length 2.5 1.0 -Post Debridement (cm) - Width 1.0 1.5 -Post Debridement (cm) - Depth 0.1 0.1 -Total Square (Post) (cm) 2.50 1.50 -Area of Debridement (cm) - Length 2.5 1.0 -Area of Debridement (cm) - Width 1.0 1.5 -Total Square (Area) (cm) 2.50 1.50 -Tunneling No No -Undermining/Tunneling No No -Circular Undermining No No -Wound/Ulcer Outcome Not Healed Not Healed -Ulcer Cleansing Rinsed/ Rinsed/ Irrigated with Irrigated with Saline Saline -Foul Odor after Cleansing No No -Bioengineered Tissue No No -Bleeding Controlled with Pressure Pressure -Treatment Response Procedure Procedure Tolerated Well Tolerated Well -Debridement - Subq, 20sq cm No No 15. R plantar -Time 09:19 09:09 -Correct Patient Yes Yes -Correct Side, Site, Position Yes Yes -Correct Procedure Yes Yes -Procedure Performed Yes Yes -Type of Procedure Debridement Debridement -Clinical Debridement Subcutaneous Subcutaneous -Tissue Removed Subcutaneous Subcutaneous -Post Debridement (cm) - Length 3.0 0.7 -Post Debridement (cm) - Width 0.5 0.5 -Post Debridement (cm) - Depth 0.1 0.1 -Total Square (Post) (cm) 1.50 0.35 -Area of Debridement (cm) - Length 3.0 0.7 -Area of Debridement (cm) - Width 0.5 0.5 -Total Square (Area) (cm) 1.50 0.35 -Tunneling No No -Undermining/Tunneling No No -Circular Undermining No No -Wound/Ulcer Outcome Not Healed Not Healed -Ulcer Cleansing Rinsed/ Rinsed/ Irrigated with Irrigated with Saline Saline -Foul Odor after Cleansing No No -Bioengineered Tissue No No -Bleeding Controlled with Pressure Pressure -Treatment Response Procedure Procedure Tolerated Well Tolerated Well -Offloading No No -Debridement - Subq, 1st 20sq cm Yes Yes Pain Scale: 0-10 Numeric Is Patient Pain Free? Yes Yes - Nurse 3 - General Ulcer D/C NN Start: 06/22/25 08:23 Freq: Status: Active Protocol: Activity Type Activity Date Activity User E-sign Co-sign Detail Recorded Client Recorded Date Recorded By Document 06/22/25 09:52 KW [id number] 06/22/25 09:53 KW Document 06/29/25 09:36 KW [id number] 06/29/25 09:37 KW 06/22/25 06/29/25 09:52 09:36 Wound Care Center Nurse 3 18 LT HEEL -Primary Dressing Applied Promogran -Other Dressing lightly moisten hydrogel the promogran -Primary Dressing Covered/Secured with Dry Gauze & Dry Gauze & Roll Gauze, Roll Gauze, Secured with Secured with Tape Tape -Promogran 1 16. RLE deluna cluster -Other Dressing hydrogel hydrogel -Primary Dressing Covered/Secured with Dry Gauze, Dry Gauze & Secured with Roll Gauze, Tape Secured with Tape 15. R plantar -Other Dressing hydrogel hydrogel -Primary Dressing Covered/Secured with Dry Gauze, Dry Gauze Secured with Tape Pain Scale: 0-10 Numeric Is Patient Pain Free? Yes Yes WC - Visit Discharge Discharge Condition Stable Stable Ambulatory Status Ambulatory Ambulatory Transportation Private Auto Private Auto Medication Reconcilliation completed & No No provided to patient/care provider Clinical Summary of Care Provided Yes Yes Additional Wound Wound debrided: right deluna Laterality: Right Type of Debridement: Excisional debridement Anesthesia Used: 4% Lidocaine Solution and 5% Lidocaine Gel Depth: Down to and including healthy tissue and in the subcutaneous layer Percentage of wound debrided: 100 Instrument Used: 5mm curette Tissue Removed: Yellow slough, devitalized tissue Severity: Fat Layer Exposed Amount of bleeding with debridement: Mild Bleeding Controlled with: Compression and gauze Patient tolerated procedure: Patient tolerated procedure well Additional Wound Wound debrided: left plantar ulcer Laterality: Left Wound Grade/Stage: Delgado grade 1 Operative Diagnosis: No debridement performed. Healed. Additional Wound Wound debrided: left heel Laterality: Left Wound Grade/Stage: Grade 1 Type of Debridement: Excisional debridement Anesthesia Used: 4% Lidocaine Solution and 5% Lidocaine Gel Depth: Down to and including healthy tissue and in the subcutaneous layer Percentage of wound debrided: 100 Instrument Used: 5mm curette Tissue Removed: Yellow slough, devitalized tissue Severity: Fat Layer Exposed Amount of bleeding with debridement: Mild Bleeding Controlled with: Compression and gauze Patient tolerated procedure: Patient tolerated procedure well Assessment/Plan Assessment/Plan (1) Decubitus ulcer of right foot: CODE(S): L89.899 - Pressure ulcer of other site, unspecified stage QUALIFIERS: Pressure injury stage: stage 2 Qualified Code(s): L89.892 - Pressure ulcer of other site, stage 2 (2) Ulcer of right deluna with fat layer exposed: CODE(S): L97.812 - Non-pressure chronic ulcer of other part of right lower leg with fat layer exposed (3) Diabetic foot ulcer associated with type 2 diabetes mellitus, with fat layer exposed: CODE(S): E11.621 - Type 2 diabetes mellitus with foot ulcer; L97.502 - Non-pressure chronic ulcer of other part of unspecified foot with fat layer exposed QUALIFIERS: Diabetic foot ulcer location: midfoot Laterality: left Qualified Code(s): E11.621 - Type 2 diabetes mellitus with foot ulcer; L97.422 - Non-pressure chronic ulcer of left heel and midfoot with fat layer exposed (4) Diabetes: CODE(S): E11.9 - Type 2 diabetes mellitus without complications QUALIFIERS: Diabetes mellitus type: type 2 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 Diabetes mellitus complication status: with hyperglycemia Qualified Code(s): E11.65 - Type 2 diabetes mellitus with hyperglycemia; Z79.4 - termination clerk (current) use of insulin (5) Uncontrolled diabetes mellitus: QUALIFIERS: Diabetes mellitus type: type 2 Glycemic state: with hyperglycemia Qualified Code(s): E11.65 - Type 2 diabetes mellitus with hyperglycemia (6) Diabetes mellitus type 2 with neurological manifestations: CODE(S): E11.49 - Type 2 diabetes mellitus with other diabetic neurological complication (7) Insulin dependent diabetes mellitus: (8) HTN (hypertension): CODE(S): I10 - Essential (primary) hypertension QUALIFIERS: Hypertension type: primary hypertension Qualified Code(s): I10 - Essential (primary) hypertension (9) Hyperlipidemia: CODE(S): E78.5 - Hyperlipidemia, unspecified QUALIFIERS: Hyperlipidemia type: unspecified Qualified Code(s): E78.5 - Hyperlipidemia, unspecified (10) PVD (peripheral vascular disease): CODE(S): I73.9 - Peripheral vascular disease, unspecified (11) PAD (peripheral artery disease): CODE(S): I73.9 - Peripheral vascular disease, unspecified (12) Venous insufficiency of both lower extremities: CODE(S): I87.2 - Venous insufficiency (chronic) (peripheral) (13) Diabetic ulcer of right foot associated with diabetes mellitus due to underlying condition, with fat layer exposed: CODE(S): E08.621 - Diabetes mellitus due to underlying condition with foot ulcer; L97.512 - Non-pressure chronic ulcer of other part of right foot with fat layer exposed QUALIFIERS: Diabetic foot ulcer location: midfoot Qualified Code(s): E08.621 - Diabetes mellitus due to underlying condition with foot ulcer; L97.412 - Non-pressure chronic ulcer of right heel and midfoot with fat layer exposed (14) Obesity: CODE(S): E66.9 - Obesity, unspecified QUALIFIERS: Obesity type: due to excess calories Obesity classification: adult class 1 (BMI 30 - 34.9) Serious obesity comorbidity presence: with serious comorbidity Body mass index: BMI 31.0-31.9 Qualified Code(s): E66.811 - Obesity, class 1; E66.09 - Other obesity due to excess calories; Z68.31 - Body mass index [BMI] 31.0-31.9, adult PLAN: Plan Evaluation and debridement performed today in clinic as annotated above. At home wound-care instructions: He will dress his ulcers of his right deluna, right plantar foot, left heel with hydrogel and gauze daily. Apply vaseline or other emollient cream to his feet daily to reduce callus formation. Keep dressings dry and intact. Off-loading: The patient was instructed to avoid pressure and friction on the affected areas. Reposition every 2 hours at minimum. Avoid prolonged standing and/or dangling of legs. When seated, feet should be elevated at chest level. Frequent ambulation is encouraged. Diet: Patient encouraged to increase protein intake while taking caution to avoid high carbohydrate and/or sugar intake and try to achieve A1C if 7.5% or less. Currently 13.2% at last check. Labs/cultures/imaging: Culture results reviewed and were positive for Pseudomonas, Staph, Strep and Cornyebacteria. He completed Linezolid and Ciprofloxacin. Follow-up: Return in 1 week for wound care follow up. Return sooner or report to the emergency room should symptoms worsen, or new symptoms arise. Note: [employer] speech recognition leasing property manager software was used to create portions of this document. Sound-alike and misspelled words, as well as other leasing property manager errors may be contained in the documentation.
--- NOTE | 2025-07-05 09:27 | WC ---
PHOTO-RIGHT PLANTAR 06/29/25
--- NOTE | 2025-07-05 09:30 | WC ---
PHOTO-RIGHT SHARP CLUSTER 06/29/25
[2025-07-06 08:32] VITALS: BP 139/88; PULSE 82; RESP 18; TEMP 36.4
--- NOTE | 2025-07-06 14:38 | PN.PCM_ITS ---
History of Present Illness Date of Service: 07/06/25 Chief Complaint: right lateral plantar ulcer, right deluna History of Wound: David is a 54 year old male that presents to the wound center for evaluation and treatment of an ulcer of his right foot. The ulcer appeared approximately a week ago. He noticed blood coming from his shoe and there was a blister that had broken open. He has been applying gauze and washing with soap daily to treat the ulcer and was seen at urgent care and started on doxycycline. A wound culture was taken and results showed multiple bacteria with Pseudomonas, Staph and Strep. Anaerobic culture is still pending. He denies systemic symptoms such as fever, chills, erythema, odor. He is struggling financially to afford supplies, medications and taking care of his home and financial responsibilities. He works at the [employer] and he is on his feet all the time there. His last A1C was 01/2025 and was 13.2 %. He is a very poorly controlled diabetic on insulin. He does not have diabetic shoes. He does see Dr. Ozuna for podiatry for diabetic foot exams. 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 He also had repeat venous testing 04/08/23 which showed incompetence and vascular surgery was considered but was not done at that time. He has not been able to place compression because he is unable to bend to pull on compression stockings due to arthritis in his back. He is not able to wrap with RADHA bandages either. Circaids were tried previously but he was unable to do this as well. He has been wearing tubigrips for compression. He states he still has issues getting them on at times when his back is flared up. He has chronic lymphedema. Subjective Subjective Kian returns today for treatment of his right deluna ulcer and right plantar ulcer. He has had improvement in size of ulcer. Unfortunately he developed a crack in his left heel which now is an ulcer. He is tolerating dressing changes. He is offloading and has not been working in order to heal his foot ulcer. He denies increased pain, odor or drainage. Objective Data Objective Data Vital Signs: Vital Signs Temp Pulse Resp BP O2 Del Method 97.5 F L 82 18 139/88 H Room Air 07/06/25 08:32 07/06/25 08:32 07/06/25 08:32 07/06/25 08:32 06/22/25 08:24 Oxygen Delivery Method Room Air Physical Exam Const alert, oriented x3 and no apparent distress General Appearance: cooperative and comfortable HEENT normocephalic and head/scalp atraumatic Resp normal respiratory effort Effort and Inspection: able to speak in complete sentences Cardio regular rate and regular rhythm Skin Wounds: wounds noted Wound Narrative: as in clinical panel moderate callous formation which was debrided with 15 blade and pick ups with beveled edges and granulation tissue present to left heel right deluna with granulation tissue, right plantar healed Psych mental status grossly normal, thought process normal, cooperative and affect normal Debridement Note Debridement Note Wound debrided: right plantar ulcer Laterality: Right Type of Debridement: Selective debridement Anesthesia Used: 4% Lidocaine Solution and 5% Lidocaine Gel Depth: Down to and including healthy tissue Percentage of wound debrided: 100 Instrument Used: #15 blade and Forceps Tissue Removed: Yellow slough, devitalized tissue Severity: Limited To Skin Breakdown Amount of bleeding with debridement: Mild Bleeding Controlled with: Compression and gauze Patient tolerated procedure: Patient tolerated procedure well Post-Debridement Measurements and Additional Note: Post-Debridement Measurements/Treatment - Nurse 1 - General Ulcer Assessment Start: 06/22/25 08:23 Freq: Status: Active Protocol: MART Activity Type Activity Date Activity User E-sign Co-sign Detail Recorded Client Recorded Date Recorded By Document 06/22/25 08:24 KW [id number] 06/22/25 08:34 KW Document 06/29/25 08:35 RB [id number] 06/29/25 08:38 RB Document 07/06/25 08:32 DL [id number] 07/06/25 08:42 DL 06/22/25 06/29/25 07/06/25 08:24 08:35 08:32 - Today's Visit Information Type of service Follow-up Visit Follow-up Visit Follow-up Visit (Physician/MANAGER INTRANET (Physician/MANAGER INTRANET (Physician/MANAGER INTRANET ) ) ) Arrival Mode Ambulatory Ambulatory Ambulatory Transfer Assistance None None Patient Identification Verified (Name & Yes Yes Yes ) Patient Requires Transmission-Based No No Precautions Vital Signs Temperature (97.8 F-99.1 F) 97.0 F L 97.4 F L 97.5 F L Temperature Source Temporal Temporal Temporal Pulse Rate (60-100) 111 H 91 82 Pulse Location Monitor Monitor Monitor Respiratory Rate (12-18) 18 18 18 Respiratory rate source Observation Observation Observation Oxygen Delivery Method Room Air Blood Pressure (90/60-120/80) 149/95 H 165/90 H 139/88 H Blood Pressure Mean (mm Hg) 113 115 105 Source Monitor Monitor Monitor Position Sitting Sitting Blood Pressure Location Left Arm Left Arm History Since Last Visit- (Skip if this is Patient's initial visit) Have you changed medications since your No No No last visit? Any new allergies or adverse reactions No No No Had a fall/change in ADL's that may No No No increase risk of falls Signs or symptoms of abuse and/or No No No neglect since last visit Have you been in the hospital since your No No No last visit? Has dressing in place as prescribed Yes Yes Yes Has compression in place as prescribed N/A N/A N/A Has offloadiing in place as prescribed N/A N/A No Experienced any changes in pain level or No No No management Left Footwear Regular Shoe Regular Shoe Right Footwear Regular Shoe Regular Shoe Pain Scale: 0-10 Numeric Is Patient Pain Free? Yes Yes Yes WC - Nurse 1 - General Ulcer Measurement Start: 06/22/25 08:23 Freq: Status: Active Protocol: Activity Type Activity Date Activity User E-sign Co-sign Detail Recorded Client Recorded Date Recorded By Document 06/22/25 08:24 KW [id number] 06/22/25 08:34 KW Document 06/29/25 08:35 RB [id number] 06/29/25 08:38 RB Document 07/06/25 08:32 DL [id number] 07/06/25 08:42 DL 06/22/25 06/29/25 07/06/25 08:24 08:35 08:32 Wound Center Nurse 1 18 LT HEEL -Combined with other wound No -Current Size (cm) - Length 0.3 0.5 0.2 -Current Size (cm) - Width 0.3 1.5 0.8 -Current Size (cm) - Depth 0.1 0.1 0.1 -Total Square Cm 0.09 0.75 0.16 -Date of Last Picture (Recall this 06/22/25 field) -Photo Taken Yes -Tunneling No -Undermining/Tunneling No -Circular Undermining No -Exudate Amt Small Medium Small -Exudate Type Serosanguineous Serosanguineous Serosanguineous -Wound Margin Thickened Distinct, Thickened Outline Attached -Granulation Amt Large (67-100%) Medium (34-66%) Small (1-33%) -Granulation Quality [place] Red -Slough/Fibrin Yes -Necrosis Amt Medium (34-66%) Small (1-33%) -Necrotic Tissue Type Adherent Slough Adherent Slough -Structure Exposed N/A N/A -Texture (Milly-wound Skin Appearance) Assessed,Callus Assessed,Callus Scarring -Moisture (Milly-wound Skin Appearance) Assessed Assessed Dry/Scaly -Color (Milly-wound Skin Appearance) Assessed Assessed No Abnormality -Temperature (Milly-wound Skin No Abnormality No Abnormality No Abnormality Appearance) (Pt Warm) (Pt Warm) (Pt Warm) -Tenderness on Palpation (Milly-wound No No No Skin Appearance) -Ulcer Cleansing Soap and Water Wound Cleanser Soap and Water -Foul Odor after Cleansing No No No -Anesthetic Used 5% Lidocaine 5% Lidocaine 5% Lidocaine Gel Gel Gel 16. RLE deluna cluster -Combined with other wound No -Current Size (cm) - Length 11 0.1 0.5 -Current Size (cm) - Width 8 0.1 1.3 -Current Size (cm) - Depth 0.1 0.1 0.1 -Total Square Cm 88 0.01 0.65 -Date of Last Picture (Recall this 06/22/25 field) -Photo Taken Yes -Tunneling No -Undermining/Tunneling No -Circular Undermining No -Exudate Amt Medium Small Small -Exudate Type Serosanguineous Serosanguineous Serosanguineous -Wound Margin Distinct, Distinct, Distinct, Outline Outline Outline Attached Attached Attached -Granulation Amt Large (67-100%) Medium (34-66%) Large (67-100%) -Granulation Quality Red [place] Red -Slough/Fibrin Yes -Necrosis Amt Medium (34-66%) Small (1-33%) -Necrotic Tissue Type Adherent Slough Adherent Slough -Structure Exposed N/A N/A -Texture (Milly-wound Skin Appearance) Assessed Assessed Scarring -Moisture (Milly-wound Skin Appearance) Assessed,Dry/ Assessed No Abnormality Scaly -Color (Milly-wound Skin Appearance) Assessed, Assessed No Abnormality Erythema -Temperature (Milly-wound Skin No Abnormality No Abnormality No Abnormality Appearance) (Pt Warm) (Pt Warm) (Pt Warm) -Tenderness on Palpation (Milly-wound No No No Skin Appearance) -Ulcer Cleansing Soap and Water Wound Cleanser Soap and Water -Foul Odor after Cleansing No No No -Anesthetic Used 5% Lidocaine 5% Lidocaine 5% Lidocaine Gel Gel Gel 15. R plantar -Combined with other wound No -Current Size (cm) - Length 3 0.1 0.1 -Current Size (cm) - Width 1 0.1 0.1 -Current Size (cm) - Depth 0.1 0.1 0.1 -Total Square Cm 3 0.01 0.01 -Date of Last Picture (Recall this 06/22/25 field) -Photo Taken Yes -Tunneling No -Undermining/Tunneling No -Circular Undermining No -Exudate Amt Small Small None Present -Exudate Type Serosanguineous Serosanguineous -Wound Margin Distinct, Distinct, Thickened Outline Outline Attached Attached -Granulation Amt Large (67-100%) Medium (34-66%) Large (67-100%) -Granulation Quality [place] Pale -Slough/Fibrin Yes -Necrosis Amt Small (1-33%) Medium (34-66%) None Present (0 %) -Necrotic Tissue Type Adherent Slough Adherent Slough -Structure Exposed N/A N/A -Texture (Milly-wound Skin Appearance) Assessed,Callus Assessed,Callus Callus,Scarring -Moisture (Milly-wound Skin Appearance) Assessed Assessed Dry/Scaly -Color (Milly-wound Skin Appearance) Assessed Assessed No Abnormality -Temperature (Milly-wound Skin No Abnormality No Abnormality No Abnormality Appearance) (Pt Warm) (Pt Warm) (Pt Warm) -Tenderness on Palpation (Milly-wound No No Skin Appearance) -Ulcer Cleansing Soap and Water Wound Cleanser Soap and Water -Foul Odor after Cleansing No No No -Anesthetic Used 5% Lidocaine 5% Lidocaine 5% Lidocaine Gel Gel Gel WC - Nurse 2 - General Ulcer CM Notes Start: 06/22/25 08:23 Freq: Status: Active Protocol: Activity Type Activity Date Activity User E-sign Co-sign Detail Recorded Client Recorded Date Recorded By Document 06/22/25 09:19 [id number] 06/22/25 09:39 GM Document 06/29/25 09:06 [id number] 06/29/25 09:27 Document 07/06/25 09:18 [id number] 07/06/25 09:42 06/22/25 06/29/25 07/06/25 09:19 09:06 09:18 Wound Center Nurse 2 18 LT HEEL -Time : 09:08 09:18 -Correct Patient Yes Yes Yes -Correct Side, Site, Position Yes Yes Yes -Correct Procedure Yes Yes Yes -Procedure Performed Yes Yes Yes -Type of Procedure Debridement Debridement Debridement -Clinical Debridement Subcutaneous Subcutaneous Subcutaneous -Tissue Removed Subcutaneous Subcutaneous Subcutaneous -Post Debridement (cm) - Length 1.0 0.5 0.8 -Post Debridement (cm) - Width 1.0 1.5 0.2 -Post Debridement (cm) - Depth 0.1 0.1 0.1 -Total Square (Post) (cm) 1.00 0.75 0.16 -Area of Debridement (cm) - Length 1.0 0.5 0.8 -Area of Debridement (cm) - Width 1.0 1.5 0.2 -Total Square (Area) (cm) 1.00 0.75 0.16 -Tunneling No No No -Undermining/Tunneling No No No -Circular Undermining No No No -Wound/Ulcer Outcome Not Healed Not Healed Not Healed -Ulcer Cleansing Rinsed/ Rinsed/ Rinsed/ Irrigated with Irrigated with Irrigated with Saline Saline Saline -Foul Odor after Cleansing No No No -Bioengineered Tissue No No No -Bleeding Controlled with Pressure Pressure -Treatment Response Procedure Procedure Tolerated Well Tolerated Well -Offloading No No -Debridement - Subq, 1st 20sq cm No No Yes 16. RLE deluna cluster -Time : 09:09 09:18 -Correct Patient Yes Yes Yes -Correct Side, Site, Position Yes Yes Yes -Correct Procedure Yes Yes Yes -Procedure Performed Yes Yes Yes -Type of Procedure Debridement Debridement Debridement -Clinical Debridement Subcutaneous Subcutaneous Epidermis / Dermis -Tissue Removed Subcutaneous Subcutaneous Epidermis, Dermis -Post Debridement (cm) - Length 2.5 1.0 0.7 -Post Debridement (cm) - Width 1.0 1.5 0.8 -Post Debridement (cm) - Depth 0.1 0.1 0.1 -Total Square (Post) (cm) 2.50 1.50 0.56 -Area of Debridement (cm) - Length 2.5 1.0 0.7 -Area of Debridement (cm) - Width 1.0 1.5 0.8 -Total Square (Area) (cm) 2.50 1.50 0.56 -Tunneling No No No -Undermining/Tunneling No No No -Circular Undermining No No No -Wound/Ulcer Outcome Not Healed Not Healed Not Healed -Ulcer Cleansing Rinsed/ Rinsed/ Rinsed/ Irrigated with Irrigated with Irrigated with Saline Saline Saline -Foul Odor after Cleansing No No No -Bioengineered Tissue No No No -Bleeding Controlled with Pressure Pressure Pressure -Treatment Response Procedure Procedure Tolerated Well Tolerated Well -Offloading No -Debridement - Open, 1st 20sq cm No -Debridement - Subq, 1st 20sq cm No No 15. R plantar -Time 09:19 09:09 09:19 -Correct Patient Yes Yes Yes -Correct Side, Site, Position Yes Yes Yes -Correct Procedure Yes Yes Yes -Procedure Performed Yes Yes Yes -Type of Procedure Debridement Debridement Debridement -Clinical Debridement Subcutaneous Subcutaneous Epidermis / Dermis -Tissue Removed Subcutaneous Subcutaneous Epidermis -Post Debridement (cm) - Length 3.0 0.7 0.5 -Post Debridement (cm) - Width 0.5 0.5 0.3 -Post Debridement (cm) - Depth 0.1 0.1 0.1 -Total Square (Post) (cm) 1.50 0.35 0.15 -Area of Debridement (cm) - Length 3.0 0.7 0.5 -Area of Debridement (cm) - Width 0.5 0.5 0.3 -Total Square (Area) (cm) 1.50 0.35 0.15 -Tunneling No No No -Undermining/Tunneling No No No -Circular Undermining No No No -Wound/Ulcer Outcome Not Healed Not Healed Not Healed -Ulcer Cleansing Rinsed/ Rinsed/ Rinsed/ Irrigated with Irrigated with Irrigated with Saline Saline Saline -Foul Odor after Cleansing No No No -Bioengineered Tissue No No No -Bleeding Controlled with Pressure Pressure Pressure -Treatment Response Procedure Procedure Procedure Tolerated Well Tolerated Well Tolerated Well -Offloading No No No -Debridement - Open, 1st 20sq cm Yes -Debridement - Subq, 1st 20sq cm Yes Yes Pain Scale: 0-10 Numeric Is Patient Pain Free? Yes Yes Yes WC - Nurse 3 - General Ulcer D/C NN Start: 06/22/25 08:23 Freq: Status: Active Protocol: Activity Type Activity Date Activity User E-sign Co-sign Detail Recorded Client Recorded Date Recorded By Document 06/22/25 09:52 KW [id number] 06/22/25 09:53 KW Document 06/29/25 09:36 KW [id number] 06/29/25 09:37 KW Document 07/06/25 09:55 DL [id number] 07/06/25 09:57 DL 06/22/25 06/29/25 07/06/25 09:52 09:36 09:55 Wound Care Center Nurse 3 18 LT HEEL -Ulcer Cleansing Rinsed/ Irrigated with Saline -Foul Odor after Cleansing No -Primary Dressing Applied Promogran -Other Dressing lightly moisten hydrogel hydrogel the promogran -Primary Dressing Covered/Secured with Dry Gauze & Dry Gauze & Dry Gauze & Roll Gauze, Roll Gauze, Roll Gauze, Secured with Secured with Secured with Tape Tape Tape -Promogran 1 16. RLE deluna cluster -Ulcer Cleansing Rinsed/ Irrigated with Saline -Foul Odor after Cleansing No -Other Dressing hydrogel hydrogel hydrogel -Primary Dressing Covered/Secured with Dry Gauze, Dry Gauze & Dry Gauze & Secured with Roll Gauze, Roll Gauze, Tape Secured with Secured with Tape Tape 15. R plantar -Ulcer Cleansing Rinsed/ Irrigated with Saline -Foul Odor after Cleansing No -Other Dressing hydrogel hydrogel hydrogel -Primary Dressing Covered/Secured with Dry Gauze, Dry Gauze Dry Gauze & Secured with Roll Gauze, Tape Secured with Tape Treatment Response Procedure Tolerated Well Pain Scale: 0-10 Numeric Is Patient Pain Free? Yes Yes Yes WC - Visit Discharge Discharge Condition Stable Stable Stable Ambulatory Status Ambulatory Ambulatory Ambulatory Transportation Private Auto Private Auto Private Auto Medication Reconcilliation completed & No No provided to patient/care provider Clinical Summary of Care Provided Yes Yes Additional Wound Wound debrided: right deluna Laterality: Right Type of Debridement: Excisional debridement Anesthesia Used: 4% Lidocaine Solution and 5% Lidocaine Gel Depth: Down to and including healthy tissue and in the subcutaneous layer Percentage of wound debrided: 100 Instrument Used: 5mm curette Tissue Removed: Yellow slough, devitalized tissue Severity: Fat Layer Exposed Amount of bleeding with debridement: Mild Bleeding Controlled with: Compression and gauze Patient tolerated procedure: Patient tolerated procedure well Additional Wound Wound debrided: left heel Laterality: Left Wound Grade/Stage: Grade 1 Type of Debridement: Excisional debridement Anesthesia Used: 4% Lidocaine Solution and 5% Lidocaine Gel Depth: Down to and including healthy tissue and in the subcutaneous layer Percentage of wound debrided: 100 Instrument Used: #15 blade and Forceps Tissue Removed: Yellow slough, devitalized tissue Severity: Fat Layer Exposed Amount of bleeding with debridement: Mild Bleeding Controlled with: Compression and gauze Patient tolerated procedure: Patient tolerated procedure well Assessment/Plan Assessment/Plan (1) Decubitus ulcer of right foot: CODE(S): L89.899 - Pressure ulcer of other site, unspecified stage QUALIFIERS: Pressure injury stage: stage 2 Qualified Code(s): L89.892 - Pressure ulcer of other site, stage 2 (2) Ulcer of right deluna with fat layer exposed: CODE(S): L97.812 - Non-pressure chronic ulcer of other part of right lower leg with fat layer exposed (3) Diabetic foot ulcer associated with type 2 diabetes mellitus, with fat layer exposed: CODE(S): E11.621 - Type 2 diabetes mellitus with foot ulcer; L97.502 - Non-pressure chronic ulcer of other part of unspecified foot with fat layer exposed QUALIFIERS: Diabetic foot ulcer location: midfoot Laterality: left Qualified Code(s): E11.621 - Type 2 diabetes mellitus with foot ulcer; L97.422 - Non-pressure chronic ulcer of left heel and midfoot with fat layer exposed (4) Diabetes: CODE(S): E11.9 - Type 2 diabetes mellitus without complications QUALIFIERS: Diabetes mellitus type: type 2 Diabetes mellitus intermediate designer insulin use: with mcfp use Diabetes mellitus complication status: with hyperglycemia Qualified Code(s): E11.65 - Type 2 diabetes mellitus with hyperglycemia; 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 (5) Uncontrolled diabetes mellitus: QUALIFIERS: Diabetes mellitus type: type 2 Glycemic state: with hyperglycemia Qualified Code(s): E11.65 - Type 2 diabetes mellitus with hyperglycemia (6) Diabetes mellitus type 2 with neurological manifestations: CODE(S): E11.49 - Type 2 diabetes mellitus with other diabetic neurolog ical complication (7) Insulin dependent diabetes mellitus: (8) HTN (hypertension): CODE(S): I10 - Essential (primary) hypertension QUALIFIERS: Hypertension type: primary hypertension Qualified Code(s): I10 - Essential (primary) hypertension (9) Hyperlipidemia: CODE(S): E78.5 - Hyperlipidemia, unspecified QUALIFIERS: Hyperlipidemia type: unspecified Qualified Code(s): E78.5 - Hyperlipidemia, unspecified (10) PVD (peripheral vascular disease): CODE(S): I73.9 - Peripheral vascular disease, unspecified (11) PAD (peripheral artery disease): CODE(S): I73.9 - Peripheral vascular disease, unspecified (12) Venous insufficiency of both lower extremities: CODE(S): I87.2 - Venous insufficiency (chronic) (peripheral) (13) Diabetic ulcer of right foot associated with diabetes mellitus due to underlying condition, with fat layer exposed: CODE(S): E08.621 - Diabetes mellitus due to underlying condition with foot ulcer; L97.512 - Non-pressure chronic ulcer of other part of right foot with fat layer exposed QUALIFIERS: Diabetic foot ulcer location: midfoot Qualified Code(s): E08.621 - Diabetes mellitus due to underlying condition with foot ulcer; L97.412 - Non-pressure chronic ulcer of right heel and midfoot with fat layer exposed (14) Obesity: CODE(S): E66.9 - Obesity, unspecified QUALIFIERS: Obesity type: due to excess calories Obesity classification: adult class 1 (BMI 30 - 34.9) Serious obesity comorbidity presence: with serious comorbidity Body mass index: BMI 31.0-31.9 Qualified Code(s): E66.811 - Obesity, class 1; E66.09 - Other obesity due to excess calories; Z68.31 - Body mass index [BMI] 31.0-31.9, adult PLAN: Plan Evaluation and debridement performed today in clinic as annotated above. At home wound-care instructions: He will dress his ulcers of his right deluna and left heel with hydrogel and gauze daily. Apply vaseline or other emollient cream to his feet daily to reduce callus formation. Keep dressings dry and intact. Off-loading: The patient was instructed to avoid pressure and friction on the affected areas. Reposition every 2 hours at minimum. Avoid prolonged standing and/or dangling of legs. When seated, feet should be elevated at chest level. Frequent ambulation is encouraged. Diet: Patient encouraged to increase protein intake while taking caution to avoid high carbohydrate and/or sugar intake and try to achieve A1C if 7.5% or less. Currently 13.2% at last check. Labs/cultures/imaging: Culture results reviewed and were positive for Pseudomonas, Staph, Strep and Cornyebacteria. He completed Linezolid and Ciprofloxacin. Follow-up: Return in 1 week for wound care follow up. Return sooner or report to the emergency room should symptoms worsen, or new symptoms arise. Note: [email or web address] speech recognition geothermal operating engineer software was used to create portions of this document. Sound-alike and misspelled words, as well as other geothermal operating engineer errors may be contained in the documentation.
[2025-07-13 08:25] VITALS: BP 140/92; PULSE 75; RESP 18; TEMP 35.9
--- NOTE | 2025-07-13 15:27 | PCM.WC.PN ---
History of Present Illness Date of Service: 07/13/25 Chief Complaint: right lateral plantar ulcer, right deluna History of Wound: David is a 54 year old male that presents to the wound center for evaluation and treatment of an ulcer of his right foot. The ulcer appeared approximately a week ago. He noticed blood coming from his shoe and there was a blister that had broken open. He has been applying gauze and washing with soap daily to treat the ulcer and was seen at urgent care and started on doxycycline. A wound culture was taken and results showed multiple bacteria with Pseudomonas, Staph and Strep. Anaerobic culture is still pending. He denies systemic symptoms such as fever, chills, erythema, odor. He is struggling financially to afford supplies, medications and taking care of his home and financial responsibilities. 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 His last A1C was 01/2025 and was 13.2 %. He is a very poorly controlled diabetic on insulin. He does not have diabetic shoes. He does see Dr. Ozuna for podiatry for diabetic foot exams. 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 He also had repeat venous testing 04/08/23 which showed incompetence and vascular surgery was considered but was not done at that time. He has not been able to place compression because he is unable to bend to pull on compression stockings due to arthritis in his back. He is not able to wrap with RADHA bandages either. Circaids were tried previously but he was unable to do this as well. He has been wearing tubigrips for compression. He states he still has issues getting them on at times when his back is flared up. He has chronic lymphedema. Subjective Subjective Kian returns today for treatment of his right deluna ulcer and right plantar ulcer. He has had improvement in size of ulcers. Unfortunately he developed a crack in his left heel beginning of June which now is an ulcer. He is tolerating dressing changes. He is offloading and has not been working in order to heal his foot ulcer. He denies increased pain, odor or drainage. Objective Data Objective Data Vital Signs: Vital Signs Temp Pulse Resp BP O2 Del Method 96.7 F L 75 18 140/92 H Room Air 07/13/25 08:25 08/22/25 08:25 07/13/25 08:25 07/13/25 08:25 07/13/25 08:25 Oxygen Delivery Method Room Air Physical Exam Const alert, oriented x3 and no apparent distress General Appearance: cooperative and comfortable HEENT normocephalic and head/scalp atraumatic Resp normal respiratory effort Effort and Inspection: able to speak in complete sentences Cardio regular rate and regular rhythm Skin Wounds: wounds noted Wound Narrative: as in clinical panel moderate callous formation which was debrided with 15 blade and pick ups with beveled edges and granulation tissue present to left heel right deluna with granulation tissue, right plantar healed Psych mental status grossly normal, thought process normal, cooperative and affect normal Debridement Note Debridement Note Wound debrided: right plantar Laterality: Right Type of Debridement: Excisional debridement Anesthesia Used: 5% Lidocaine Gel Depth: Down to and including healthy tissue and in the subcutaneous layer Percentage of wound debrided: 100 Instrument Used: 5mm curette Tissue Removed: Yellow slough, devitalized tissue Severity: Fat Layer Exposed Amount of bleeding with debridement: None Bleeding Controlled with: Compression and gauze Patient tolerated procedure: Patient tolerated procedure well Post-Debridement Measurements and Additional Note: Post-Debridement Measurements/Treatment - Nurse 1 - General Ulcer Assessment Start: 06/22/25 08:23 Freq: Status: Active Protocol: MART Activity Type Activity Date Activity User E-sign Co-sign Detail Recorded Client Recorded Date Recorded By Document 06/22/25 08:24 KW [id number] 06/22/25 08:34 KW Document 06/29/25 08:35 RB [id number] 06/29/25 08:38 RB Document 07/06/25 08:32 DL [id number] 07/06/25 08:42 DL Document 07/13/25 08:25 KW [id number] 07/13/25 08:27 KW 06/22/25 06/29/25 07/06/25 08:24 08:35 08:32 - Today's Visit Information Type of service Follow-up Visit Follow-up Visit Follow-up Visit (Physician/CONSULAR OFFICER (Physician/CONSULAR OFFICER (Physician/CONSULAR OFFICER ) ) ) Arrival Mode Ambulatory Ambulatory Ambulatory Transfer Assistance None None Patient Identification Verified (Name & Yes Yes Yes ) Patient Requires Transmission-Based No No Precautions Vital Signs Temperature (97.8 F-99.1 F) 97.0 F L 97.4 F L 97.5 F L Temperature Source Temporal Temporal Temporal Pulse Rate (60-100) 111 H 91 82 Pulse Location Monitor Monitor Monitor Respiratory Rate (12-18) 18 18 18 Respiratory rate source Observation Observation Observation Oxygen Delivery Method Room Air Blood Pressure (90/60-120/80) 149/95 H 165/90 H 139/88 H Blood Pressure Mean (mm Hg) 113 115 105 Source Monitor Monitor Monitor Position Sitting Sitting Blood Pressure Location Left Arm Left Arm History Since Last Visit- (Skip if this is Patient's initial visit) Have you changed medications since your No No No last visit? Any new allergies or adverse reactions No No No Had a fall/change in ADL's that may No No No increase risk of falls Signs or symptoms of abuse and/or No No No neglect since last visit Have you been in the hospital since your No No No last visit? Has dressing in place as prescribed Yes Yes Yes Has compression in place as prescribed N/A N/A N/A Has offloadiing in place as prescribed N/A N/A No Experienced any changes in pain level or No No No management Left Footwear Regular Shoe Regular Shoe Right Footwear Regular Shoe Regular Shoe Pain Scale: 0-10 Numeric Is Patient Pain Free? Yes Yes Yes 07/13/25 08:25 WC - Today's Visit Information Type of service Follow-up Visit (Physician/CONSULAR OFFICER ) Arrival Mode Ambulatory Transfer Assistance Patient Identification Verified (Name & Yes ) Patient Requires Transmission-Based Precautions Vital Signs Temperature (97.8 F-99.1 F) 96.7 F L Temperature Source Temporal Pulse Rate (60-100) 75 Pulse Location Monitor Respiratory Rate (12-18) 18 Respiratory rate source Observation Oxygen Delivery Method Room Air Blood Pressure (90/60-120/80) 140/92 H Blood Pressure Mean (mm Hg) 108 Source Monitor Position Semi-Fowlers Blood Pressure Location Right Arm History Since Last Visit- (Skip if this is Patient's initial visit) Have you changed medications since your No last visit? Any new allergies or adverse reactions No Had a fall/change in ADL's that may No increase risk of falls Signs or symptoms of abuse and/or No neglect since last visit Have you been in the hospital since your No last visit? Has dressing in place as prescribed Yes Has compression in place as prescribed N/A Has offloadiing in place as prescribed N/A Experienced any changes in pain level or No management Left Footwear Regular Shoe Right Footwear Regular Shoe Pain Scale: 0-10 Numeric Is Patient Pain Free? Yes WC - Nurse 1 - General Ulcer Measurement Start: 06/22/25 08:23 Freq: Status: Active Protocol: Activity Type Activity Date Activity User E-sign Co-sign Detail Recorded Client Recorded Date Recorded By Document 06/22/25 08:24 KW [id number] 06/22/25 08:34 KW Document 06/29/25 08:35 RB [id number] 06/29/25 08:38 RB Document 07/06/25 08:32 DL [id number] 07/06/25 08:42 DL Document 07/13/25 08:25 KW [id number] 07/13/25 08:27 KW 06/22/25 06/29/25 07/06/25 08:24 08:35 08:32 Wound Center Nurse 1 18 LT HEEL -Combined with other wound No -Current Size (cm) - Length 0.3 0.5 0.2 -Current Size (cm) - Width 0.3 1.5 0.8 -Current Size (cm) - Depth 0.1 0.1 0.1 -Total Square Cm 0.09 0.75 0.16 -Date of Last Picture (Recall this 06/22/25 field) -Photo Taken Yes -Tunneling No -Undermining/Tunneling No -Circular Undermining No -Exudate Amt Small Medium Small -Exudate Type Serosanguineous Serosanguineous Serosanguineous -Wound Margin Thickened Distinct, Thickened Outline Attached -Granulation Amt Large (67-100%) Medium (34-66%) Small (1-33%) -Granulation Quality [place] Red -Slough/Fibrin Yes -Necrosis Amt Medium (34-66%) Small (1-33%) -Necrotic Tissue Type Adherent Slough Adherent Slough -Structure Exposed N/A N/A -Texture (Milly-wound Skin Appearance) Assessed,Callus Assessed,Callus Scarring -Moisture (Milly-wound Skin Appearance) Assessed Assessed Dry/Scaly -Color (Milly-wound Skin Appearance) Assessed Assessed No Abnormality -Temperature (Milly-wound Skin No Abnormality No Abnormality No Abnormality Appearance) (Pt Warm) (Pt Warm) (Pt Warm) -Tenderness on Palpation (Milly-wound No No No Skin Appearance) -Ulcer Cleansing Soap and Water Wound Cleanser Soap and Water -Foul Odor after Cleansing No No No -Anesthetic Used 5% Lidocaine 5% Lidocaine 5% Lidocaine Gel Gel Gel 16. RLE deluna cluster -Combined with other wound No -Current Size (cm) - Length 11 0.1 0.5 -Current Size (cm) - Width 8 0.1 1.3 -Current Size (cm) - Depth 0.1 0.1 0.1 -Total Square Cm 88 0.01 0.65 -Date of Last Picture (Recall this 06/22/25 field) -Photo Taken Yes -Tunneling No -Undermining/Tunneling No -Circular Undermining No -Exudate Amt Medium Small Small -Exudate Type Serosanguineous Serosanguineous Serosanguineous -Wound Margin Distinct, Distinct, Distinct, Outline Outline Outline Attached Attached Attached -Granulation Amt Large (67-100%) Medium (34-66%) Large (67-100%) -Granulation Quality [place] Red -Slough/Fibrin Yes -Necrosis Amt Medium (34-66%) Small (1-33%) -Necrotic Tissue Type Adherent Slough Adherent Slough -Structure Exposed N/A N/A -Texture (Milly-wound Skin Appearance) Assessed Assessed Scarring -Moisture (Milly-wound Skin Appearance) Assessed,Dry/ Assessed No Abnormality Scaly -Color (Milly-wound Skin Appearance) Assessed, Assessed No Abnormality Erythema -Temperature (Milly-wound Skin No Abnormality No Abnormality No Abnormality Appearance) (Pt Warm) (Pt Warm) (Pt Warm) -Tenderness on Palpation (Milly-wound No No No Skin Appearance) -Ulcer Cleansing Soap and Water Wound Cleanser Soap and Water -Foul Odor after Cleansing No No No -Anesthetic Used 5% Lidocaine 5% Lidocaine 5% Lidocaine Gel Gel Gel 15. R plantar -Combined with other wound No -Current Size (cm) - Length 3 0.1 0.1 -Current Size (cm) - Width 1 0.1 0.1 -Current Size (cm) - Depth 0.1 0.1 0.1 -Total Square Cm 3 0.01 0.01 -Date of Last Picture (Recall this 06/22/25 field) -Photo Taken Yes -Tunneling No -Undermining/Tunneling No -Circular Undermining No -Exudate Amt Small Small None Present -Exudate Type Serosanguineous Serosanguineous -Wound Margin Distinct, Distinct, Thickened Outline Outline Attached Attached -Granulation Amt Large (67-100%) Medium (34-66%) Large (67-100%) -Granulation Quality [place] Pale -Slough/Fibrin Yes -Necrosis Amt Small (1-33%) Medium (34-66%) None Present (0 %) -Necrotic Tissue Type Adherent Slough Adherent Slough -Structure Exposed N/A N/A -Texture (Milly-wound Skin Appearance) Assessed,Callus Assessed,Callus Callus,Scarring -Moisture (Milly-wound Skin Appearance) Assessed Assessed Dry/Scaly -Color (Milly-wound Skin Appearance) Assessed Assessed No Abnormality -Temperature (Milly-wound Skin No Abnormality No Abnormality No Abnormality Appearance) (Pt Warm) (Pt Warm) (Pt Warm) -Tenderness on Palpation (Milly-wound No No Skin Appearance) -Ulcer Cleansing Soap and Water Wound Cleanser Soap and Water -Foul Odor after Cleansing No No No -Anesthetic Used 5% Lidocaine 5% Lidocaine 5% Lidocaine Gel Gel Gel 07/13/25 08:25 Wound Center Nurse 1 18 LT HEEL -Combined with other wound -Current Size (cm) - Length 0.1 -Current Size (cm) - Width 0.1 -Current Size (cm) - Depth 0.1 -Total Square Cm 0.01 -Date of Last Picture (Recall this field) -Photo Taken -Tunneling -Undermining/Tunneling -Circular Undermining -Exudate Amt None Present -Exudate Type -Wound Margin Thickened -Granulation Amt -Granulation Quality -Slough/Fibrin -Necrosis Amt -Necrotic Tissue Type -Structure Exposed -Texture (Milly-wound Skin Appearance) Assessed,Callus -Moisture (Milly-wound Skin Appearance) Assessed -Color (Milly-wound Skin Appearance) Assessed -Temperature (Milly-wound Skin No Abnormality Appearance) (Pt Warm) -Tenderness on Palpation (Milly-wound No Skin Appearance) -Ulcer Cleansing Rinsed/ Irrigated with Saline -Foul Odor after Cleansing No -Anesthetic Used 5% Lidocaine Gel 16. RLE deluna cluster -Combined with other wound -Current Size (cm) - Length 0.6 -Current Size (cm) - Width 1.2 -Current Size (cm) - Depth 0.1 -Total Square Cm 0.72 -Date of Last Picture (Recall this field) -Photo Taken -Tunneling -Undermining/Tunneling -Circular Undermining -Exudate Amt Small -Exudate Type Serosanguineous -Wound Margin -Granulation Amt Medium (34-66%) -Granulation Quality Red -Slough/Fibrin -Necrosis Amt -Necrotic Tissue Type -Structure Exposed -Texture (Milly-wound Skin Appearance) Assessed -Moisture (Milly-wound Skin Appearance) Assessed -Color (Milly-wound Skin Appearance) Assessed -Temperature (Milly-wound Skin No Abnormality Appearance) (Pt Warm) -Tenderness on Palpation (Milly-wound No Skin Appearance) -Ulcer Cleansing Rinsed/ Irrigated with Saline -Foul Odor after Cleansing No -Anesthetic Used 5% Lidocaine Gel 15. R plantar -Combined with other wound -Current Size (cm) - Length 0.1 -Current Size (cm) - Width 0.2 -Current Size (cm) - Depth 0.1 -Total Square Cm 0.02 -Date of Last Picture (Recall this field) -Photo Taken -Tunneling -Undermining/Tunneling -Circular Undermining -Exudate Amt -Exudate Type -Wound Margin -Granulation Amt Small (1-33%) -Granulation Quality [place] -Slough/Fibrin -Necrosis Amt -Necrotic Tissue Type -Structure Exposed -Texture (Milly-wound Skin Appearance) Assessed,Callus -Moisture (Milly-wound Skin Appearance) -Color (Milly-wound Skin Appearance) Assessed, Atrophie Oralia -Temperature (Milly-wound Skin No Abnormality Appearance) (Pt Warm) -Tenderness on Palpation (Milly-wound No Skin Appearance) -Ulcer Cleansing Rinsed/ Irrigated with Saline -Foul Odor after Cleansing No -Anesthetic Used 5% Lidocaine Gel WC - Nurse 2 - General Ulcer CM Notes Start: 06/22/25 08:23 Freq: Status: Active Protocol: Activity Type Activity Date Activity User E-sign Co-sign Detail Recorded Client Recorded Date Recorded By Document 06/22/25 09:19 [id number] 06/22/25 09:39 GM Document 06/29/25 09:06 [id number] 06/29/25 09:27 GM Document 07/06/25 09:18 [id number] 07/06/25 09:42 GM Document 07/13/25 09:04 [id number] 07/13/25 09:13 06/22/25 06/29/25 07/06/25 09:19 09:06 09:18 Wound Center Nurse 2 18 LT HEEL -Time : 09:08 09:18 -Correct Patient Yes Yes Yes -Correct Side, Site, Position Yes Yes Yes -Correct Procedure Yes Yes Yes -Procedure Performed Yes Yes Yes -Type of Procedure Debridement Debridement Debridement -Clinical Debridement Subcutaneous Subcutaneous Subcutaneous -Tissue Removed Subcutaneous Subcutaneous Subcutaneous -Post Debridement (cm) - Length 1.0 0.5 0.8 -Post Debridement (cm) - Width 1.0 1.5 0.2 -Post Debridement (cm) - Depth 0.1 0.1 0.1 -Total Square (Post) (cm) 1.00 0.75 0.16 -Area of Debridement (cm) - Length 1.0 0.5 0.8 -Area of Debridement (cm) - Width 1.0 1.5 0.2 -Total Square (Area) (cm) 1.00 0.75 0.16 -Tunneling No No No -Undermining/Tunneling No No No -Circular Undermining No No No -Wound/Ulcer Outcome Not Healed Not Healed Not Healed -Ulcer Cleansing Rinsed/ Rinsed/ Rinsed/ Irrigated with Irrigated with Irrigated with Saline Saline Saline -Foul Odor after Cleansing No No No -Bioengineered Tissue No No No -Bleeding Controlled with Pressure Pressure -Treatment Response Procedure Procedure Tolerated Well Tolerated Well -Offloading No No -Debridement - Open, 1st 20sq cm -Debridement - Subq, 1st 20sq cm No No Yes 16. RLE deluna cluster -Time : 09:09 09:18 -Correct Patient Yes Yes Yes -Correct Side, Site, Position Yes Yes Yes -Correct Procedure Yes Yes Yes -Procedure Performed Yes Yes Yes -Type of Procedure Debridement Debridement Debridement -Clinical Debridement Subcutaneous Subcutaneous Epidermis / Dermis -Tissue Removed Subcutaneous Subcutaneous Epidermis, Dermis -Post Debridement (cm) - Length 2.5 1.0 0.7 -Post Debridement (cm) - Width 1.0 1.5 0.8 -Post Debridement (cm) - Depth 0.1 0.1 0.1 -Total Square (Post) (cm) 2.50 1.50 0.56 -Area of Debridement (cm) - Length 2.5 1.0 0.7 -Area of Debridement (cm) - Width 1.0 1.5 0.8 -Total Square (Area) (cm) 2.50 1.50 0.56 -Tunneling No No No -Undermining/Tunneling No No No -Circular Undermining No No No -Wound/Ulcer Outcome Not Healed Not Healed Not Healed -Ulcer Cleansing Rinsed/ Rinsed/ Rinsed/ Irrigated with Irrigated with Irrigated with Saline Saline Saline -Foul Odor after Cleansing No No No -Bioengineered Tissue No No No -Bleeding Controlled with Pressure Pressure Pressure -Treatment Response Procedure Procedure Tolerated Well Tolerated Well -Offloading No -Debridement - Open, 1st 20sq cm No -Debridement - Subq, 1st 20sq cm No No 15. R plantar -Time 09:19 09:09 09:19 -Correct Patient Yes Yes Yes -Correct Side, Site, Position Yes Yes Yes -Correct Procedure Yes Yes Yes -Procedure Performed Yes Yes Yes -Type of Procedure Debridement Debridement Debridement -Clinical Debridement Subcutaneous Subcutaneous Epidermis / Dermis -Tissue Removed Subcutaneous Subcutaneous Epidermis -Post Debridement (cm) - Length 3.0 0.7 0.5 -Post Debridement (cm) - Width 0.5 0.5 0.3 -Post Debridement (cm) - Depth 0.1 0.1 0.1 -Total Square (Post) (cm) 1.50 0.35 0.15 -Area of Debridement (cm) - Length 3.0 0.7 0.5 -Area of Debridement (cm) - Width 0.5 0.5 0.3 -Total Square (Area) (cm) 1.50 0.35 0.15 -Tunneling No No No -Undermining/Tunneling No No No -Circular Undermining No No No -Wound/Ulcer Outcome Not Healed Not Healed Not Healed -Ulcer Cleansing Rinsed/ Rinsed/ Rinsed/ Irrigated with Irrigated with Irrigated with Saline Saline Saline -Foul Odor after Cleansing No No No -Bioengineered Tissue No No No -Bleeding Controlled with Pressure Pressure Pressure -Treatment Response Procedure Procedure Procedure Tolerated Well Tolerated Well Tolerated Well -Offloading No No No -Debridement - Open, 1st 20sq cm Yes -Debridement - Subq, 1st 20sq cm Yes Yes -Wound Comment(s) Pain Scale: 0-10 Numeric Is Patient Pain Free? Yes Yes Yes 07/13/25 09:04 Wound Center Nurse 2 18 LT HEEL -Time 09:04 -Correct Patient Yes -Correct Side, Site, Position Yes -Correct Procedure Yes -Procedure Performed Yes -Type of Procedure Debridement -Clinical Debridement Epidermis / Dermis -Tissue Removed Epidermis, Dermis -Post Debridement (cm) - Length 0.8 -Post Debridement (cm) - Width 0.2 -Post Debridement (cm) - Depth 0.1 -Total Square (Post) (cm) 0.16 -Area of Debridement (cm) - Length 0.8 -Area of Debridement (cm) - Width 0.2 -Total Square (Area) (cm) 0.16 -Tunneling No -Undermining/Tunneling No -Circular Undermining No -Wound/Ulcer Outcome Not Healed -Ulcer Cleansing Not Cleansed -Foul Odor after Cleansing No -Bioengineered Tissue No -Bleeding Controlled with NA -Treatment Response Procedure Tolerated Well -Offloading -Debridement - Open, 1st 20sq cm Yes -Debridement - Subq, 1st 20sq cm 16. RLE deluna cluster -Time 09:05 -Correct Patient Yes -Correct Side, Site, Position Yes -Correct Procedure Yes -Procedure Performed Yes -Type of Procedure Debridement -Clinical Debridement Subcutaneous -Tissue Removed Subcutaneous -Post Debridement (cm) - Length 0.6 -Post Debridement (cm) - Width 1.0 -Post Debridement (cm) - Depth 0.1 -Total Square (Post) (cm) 0.60 -Area of Debridement (cm) - Length 0.6 -Area of Debridement (cm) - Width 1.0 -Total Square (Area) (cm) 0.60 -Tunneling No -Undermining/Tunneling No -Circular Undermining No -Wound/Ulcer Outcome Not Healed -Ulcer Cleansing Not Cleansed -Foul Odor after Cleansing No -Bioengineered Tissue -Bleeding Controlled with Pressure -Treatment Response Procedure Tolerated Well -Offloading No -Debridement - Open, 1st 20sq cm -Debridement - Subq, 1st 20sq cm Yes 15. R plantar -Time 09:05 -Correct Patient Yes -Correct Side, Site, Position Yes -Correct Procedure Yes -Procedure Performed Yes -Type of Procedure Debridement -Clinical Debridement Epidermis / Dermis -Tissue Removed Epidermis, Dermis -Post Debridement (cm) - Length 0.5 -Post Debridement (cm) - Width 0.3 -Post Debridement (cm) - Depth 0.1 -Total Square (Post) (cm) 0.15 -Area of Debridement (cm) - Length 0.5 -Area of Debridement (cm) - Width 0.3 -Total Square (Area) (cm) 0.15 -Tunneling No -Undermining/Tunneling No -Circular Undermining No -Wound/Ulcer Outcome Not Healed -Ulcer Cleansing Not Cleansed -Foul Odor after Cleansing No -Bioengineered Tissue No -Bleeding Controlled with NA -Treatment Response Procedure Tolerated Well -Offloading No -Debridement - Open, 1st 20sq cm No -Debridement - Subq, 1st 20sq cm -Wound Comment(s) very dry skin Pain Scale: 0-10 Numeric Is Patient Pain Free? Yes WC - Nurse 3 - General Ulcer D/C NN Start: 06/22/25 08:23 Freq: Status: Active Protocol: Activity Type Activity Date Activity User E-sign Co-sign Detail Recorded Client Recorded Date Recorded By Document 06/22/25 09:52 KW [id number] 06/22/25 09:53 KW Document 06/29/25 09:36 KW [id number] 06/29/25 09:37 KW Document 07/06/25 09:55 DL [id number] 07/06/25 09:57 DL Document 07/13/25 09:27 KW [id number] 07/13/25 09:28 KW 06/22/25 06/29/25 07/06/25 09:52 09:36 09:55 Wound Care Center Nurse 3 18 LT HEEL -Ulcer Cleansing Rinsed/ Irrigated with Saline -Foul Odor after Cleansing No -Primary Dressing Applied Promogran -Other Dressing lightly moisten hydrogel hydrogel the promogran -Primary Dressing Covered/Secured with Dry Gauze & Dry Gauze & Dry Gauze & Roll Gauze, Roll Gauze, Roll Gauze, Secured with Secured with Secured with Tape Tape Tape -Promogran 1 16. RLE deluna cluster -Ulcer Cleansing Rinsed/ Irrigated with Saline -Foul Odor after Cleansing No -Other Dressing hydrogel hydrogel hydrogel -Primary Dressing Covered/Secured with Dry Gauze, Dry Gauze & Dry Gauze & Secured with Roll Gauze, Roll Gauze, Tape Secured with Secured with Tape Tape 15. R plantar -Ulcer Cleansing Rinsed/ Irrigated with Saline -Foul Odor after Cleansing No -Other Dressing hydrogel hydrogel hydrogel -Primary Dressing Covered/Secured with Dry Gauze, Dry Gauze Dry Gauze & Secured with Roll Gauze, Tape Secured with Tape Treatment Response Procedure Tolerated Well Pain Scale: 0-10 Numeric Is Patient Pain Free? Yes Yes Yes WC - Visit Discharge Discharge Condition Stable Stable Stable Ambulatory Status Ambulatory Ambulatory Ambulatory Transportation Private Auto Private Auto Private Auto Medication Reconcilliation completed & No No provided to patient/care provider Clinical Summary of Care Provided Yes Yes 07/13/25 09:27 Wound Care Center Nurse 3 18 LT HEEL -Ulcer Cleansing -Foul Odor after Cleansing -Primary Dressing Applied -Other Dressing hydrogel -Primary Dressing Covered/Secured with Dry Gauze,Dry Gauze & Roll Gauze,Secured with Tape -Promogran 16. RLE deluna cluster -Ulcer Cleansing -Foul Odor after Cleansing -Other Dressing hydrogel -Primary Dressing Covered/Secured with Dry Gauze & Roll Gauze, Secured with Tape 15. R plantar -Ulcer Cleansing -Foul Odor after Cleansing -Other Dressing hydrogel -Primary Dressing Covered/Secured with Dry Gauze & Roll Gauze, Secured with Tape Treatment Response Pain Scale: 0-10 Numeric Is Patient Pain Free? Yes WC - Visit Discharge Discharge Condition Stable Ambulatory Status Ambulatory Transportation Private Auto Medication Reconcilliation completed & No provided to patient/care provider Clinical Summary of Care Provided Yes Additional Wound Wound debrided: right deluna Laterality: Right Type of Debridement: Excisional debridement Anesthesia Used: 4% Lidocaine Solution and 5% Lidocaine Gel Depth: Down to and including healthy tissue and in the subcutaneous layer Percentage of wound debrided: 100 Instrument Used: 5mm curette Tissue Removed: Yellow slough, devitalized tissue Severity: Fat Layer Exposed Amount of bleeding with debridement: Mild Bleeding Controlled with: Compression and gauze Patient tolerated procedure: Patient tolerated procedure well Additional Wound Wound debrided: left heel Laterality: Left Wound Grade/Stage: Grade 1 Type of Debridement: Excisional debridement Anesthesia Used: 4% Lidocaine Solution and 5% Lidocaine Gel Depth: Down to and including healthy tissue and in the subcutaneous layer Percentage of wound debrided: 100 Instrument Used: 5mm curette Tissue Removed: Yellow slough, devitalized tissue Severity: Fat Layer Exposed Amount of bleeding with debridement: Mild Bleeding Controlled with: Compression and gauze Patient tolerated procedure: Patient tolerated procedure well Assessment/Plan Assessment/Plan (1) Decubitus ulcer of right foot: CODE(S): L89.899 - Pressure ulcer of other site, unspecified stage QUALIFIERS: Pressure injury stage: stage 2 Qualified Code(s): L89.892 - Pressure ulcer of other site, stage 2 (2) Ulcer of right deluna with fat layer exposed: CODE(S): L97.812 - Non-pressure chronic ulcer of other part of right lower leg with fat layer exposed (3) Diabetic foot ulcer associated with type 2 diabetes mellitus, with fat layer exposed: CODE(S): E11.621 - Type 2 diabetes mellitus with foot ulcer; L97.502 - Non-pressure chronic ulcer of other part of unspecified foot with fat layer exposed QUALIFIERS: Diabetic foot ulcer location: midfoot Laterality: left Qualified Code(s): E11.621 - Type 2 diabetes mellitus with foot ulcer; L97.422 - Non-pressure chronic ulcer of left heel and midfoot with fat layer exposed (4) Diabetes: CODE(S): E11.9 - Type 2 diabetes mellitus without complications QUALIFIERS: Diabetes mellitus complication status: with hyperglycemia Diabetes mellitus mcc insulin use: with keno terminal operator use Diabetes mellitus type: type 2 Qualified Code(s): E11.65 - Type 2 diabetes mellitus with hyperglycemia; Z79.4 - continuous churn buttermaker (current) use of insulin (5) Uncontrolled diabetes mellitus: QUALIFIERS: Diabetes mellitus type: type 2 Glycemic state: with hyperglycemia Qualified Code(s): E11.65 - Type 2 diabetes mellitus with hyperglycemia (6) Diabetes mellitus type 2 with neurological manifestations: CODE(S): E11.49 - Type 2 diabetes mellitus with other diabetic neurological complication (7) Insulin dependent diabetes mellitus: (8) HTN (hypertension): CODE(S): I10 - Essential (primary) hypertension QUALIFIERS: Hypertension type: primary hypertension Qualified Code(s): I10 - Essential (primary) hypertension (9) Hyperlipidemia: CODE(S): E78.5 - Hyperlipidemia, unspecified QUALIFIERS: Hyperlipidemia type: unspecified Qualified Code(s): E78.5 - Hyperlipidemia, unspecified (10) PVD (peripheral vascular disease): CODE(S): I73.9 - Peripheral vascular disease, unspecified (11) PAD (peripheral artery disease): CODE(S): I73.9 - Peripheral vascular disease, unspecified (12) Venous insufficiency of both lower extremities: CODE(S): I87.2 - Venous insufficiency (chronic) (peripheral) (13) Diabetic ulcer of right foot associated with diabetes mellitus due to underlying condition, with fat layer exposed: CODE(S): E08.621 - Diabetes mellitus due to underlying condition with foot ulcer; L97.512 - Non-pressure chronic ulcer of other part of right foot with fat layer exposed QUALIFIERS: Diabetic foot ulcer location: midfoot Qualified Code(s): E08.621 - Diabetes mellitus due to underlying condition with foot ulcer; L97.412 - Non-pressure chronic ulcer of right heel and midfoot with fat layer exposed (14) Obesity: CODE(S): E66.9 - Obesity, unspecified QUALIFIERS: Body mass index: BMI 31.0-31.9 Obesity classification: adult class 1 (BMI 30 - 34.9) Obesity type: due to excess calories Serious obesity comorbidity presence: with serious comorbidity Qualified Code(s): E66.811 - Obesity, class 1; E66.09 - Other obesity due to excess calories; Z68.31 - Body mass index [BMI] 31.0-31.9, adult PLAN: Plan Evaluation and debridement performed today in clinic as annotated above. At home wound-care instructions: He will dress his ulcers of his right deluna and left heel with hydrogel and gauze daily. Apply vaseline or other emollient cream to his feet daily to reduce callus formation. Keep dressings dry and intact. Off-loading: The patient was instructed to avoid pressure and friction on the affected areas. Reposition every 2 hours at minimum. Avoid prolonged standing and/or dangling of legs. When seated, feet should be elevated at chest level. Frequent ambulation is encouraged. Diet: Patient encouraged to increase protein intake while taking caution to avoid high carbohydrate and/or sugar intake and try to achieve A1C if 7.5% or less. Currently 13.2% at last check. Labs/cultures/imaging: Culture results reviewed and were positive for Pseudomonas, Staph, Strep and Cornyebacteria. He completed Linezolid and Ciprofloxacin. Follow-up: Return in 2 weeks for wound care follow up. Return sooner or report to the emergency room should symptoms worsen, or new symptoms arise. Note: [employer] speech recognition prepress proofer software was used to create portions of this document. Sound-alike and misspelled words, as well as other prepress proofer errors may be contained in the documentation.
[2025-07-20 08:12] VITALS: BP 159/93; PULSE 72; RESP 18; TEMP 35.9
--- NOTE | 2025-07-20 09:58 | WC ---
photo-left heel 07/20/25
--- NOTE | 2025-07-20 09:58 | WC ---
PHOTO-RIGHT SHARP CLUSTER 07/20/25
--- NOTE | 2025-07-20 09:59 | WC ---
PHOTO-RIGHT PLANTAR 07/20/25
--- NOTE | 2025-07-20 15:20 | PCM.WC.HP ---
History of Present Illness Date of Service: 07/20/25 Chief Complaint: Ulcerations of the right pretibial and lateral calf, right lateral foot, and left heel History of Wound: The patient is seen and evaluated today on behalf of Dr. Claudia Mckeon, the patient's regular Wound Center physician. The patient's medical history has been reviewed, and is as previously documented below per Dr. Mckeon: David is a 54 year old male that presents to the wound center for evaluation and treatment of an ulcer of his right foot. The ulcer appeared approximately a week ago. He noticed blood coming from his shoe and there was a blister that had broken open. He has been applying gauze and washing with soap daily to treat the ulcer and was seen at urgent care and started on doxycycline. A wound culture was taken and results showed multiple bacteria with Pseudomonas, Staph and Strep. Anaerobic culture is still pending. He denies systemic symptoms such as fever, chills, erythema, odor. He is struggling financially to afford supplies, medications and taking care of his home and financial responsibilities. He works at the [employer] and he is on his feet all the time there. His last A1C was 01/2025 and was 13.2 %. He is a very poorly controlled diabetic on insulin. He does not have diabetic shoes. He does see Dr. Ozuna for podiatry for diabetic foot exams. 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 He also had repeat venous testing 04/08/23 which showed incompetence and vascular surgery was considered but was not done at that time. He has not been able to place compression because he is unable to bend to pull on compression stockings due to arthritis in his back. He is not able to wrap with RADHA bandages either. Circaids were tried previously but he was unable to do this as well. He has been wearing tubigrips for compression. He states he still has issues getting them on at times when his back is flared up. 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 He admits to encountering swelling in his lower extremities. He has a history of chronic venous insufficiency and venous hypertension with inflammation. He claims to sleep on a flat mattress at night. He suffers from diabetes mellitus, type II, and is poorly controlled. He also suffers from polyneuropathy. His most recent hemoglobin A1c in Dr. Mckeon' office was 14.8. He does not possess a good pair of diabetic shoes. He does not smoke. [facility] Medical History Polyneuropathy due to type 2 diabetes mellitus Decubitus ulcer of right foot Lumbar strain Right shoulder strain Contusion of right knee Contusion of left knee Carpal tunnel syndrome Traumatic closed nondisplaced fracture of one rib of left side High cholesterol Diabetes Hypertension Home Medications Medication Instructions Recorded Last Taken Type amlodipine 5 mg tablet 5 mg PO DAILY 05/26/18 Unknown History losartan 25 mg tablet 25 mg PO DAILY 05/26/18 Unknown History metoprolol tartrate 25 mg tablet 25 mg PO BID 05/26/18 Unknown History Lasix 40 mg PO BID 10/07/18 Unknown History Potassium Chloride 10 meq PO DAILY 10/07/18 Unknown History ibuprofen 600 mg tablet 600 mg PO Q8H PRN PRN pain #20 10/28/24 Unknown Rx TABLETS alendronate 70 mg tablet 70 mg PO QWEEK 11/06/24 Unknown History cholecalciferol (vitamin D3) 1,250 1,250 mcg PO QWEEK 11/06/24 Unknown History mcg (50,000 unit) capsule testosterone 1.62 % (20.25 mg/1.25 1 packet transdermal QDAY 11/06/24 Unknown History gram) transdermal gel packet tirzepatide 5 mg/0.5 mL 5 mg (0.5 mL) subcut QWEEK #2 mL 02/05/25 Unknown Rx subcutaneous pen injector ([place]) doxycycline monohydrate 100 mg 100 mg PO BID #20 caps 05/08/25 Unknown Rx capsule ciprofloxacin HCl 500 mg tablet 500 mg PO BID #20 tabs 05/11/25 Unknown Rx linezolid 600 mg tablet 600 mg PO BID #20 tabs 05/11/25 Unknown Rx blood sugar diagnostic (OneTouch #100 ea 07/09/25 Unknown Rx Verio test strips) insulin regular hum U-500 conc 500 100 unit (0.2 mL) subcut TIDWMEAL 07/09/25 Unknown Rx unit/mL(3 mL) subcut pen (Humulin #18 mL R U-500 (Conc) Insulin Kwikpen) rosuvastatin 20 mg tablet 20 mg PO QDAY 07/09/25 Unknown History sertraline 100 mg tablet 150 mg PO QDAY 07/09/25 Unknown History Allergy/AdvReac Type Severity Reaction Status Date / Time liraglutide (From Victoza) Allergy Rash Verified 07/09/25 09:04 metformin (From Glucophage) Allergy Rash Verified 07/09/25 09:04 Penicillins (PCN) Allergy Rash Verified 07/09/25 09:04 Sulfa (Sulfonamide Allergy Rash Verified 07/09/25 09:04 Antibiotics) Family History Other Alcoholism Arthritis CVA (cerebral vascular accident) Cancer Depression Diabetes Heart disease High cholesterol Hypertension Thyroid disorder Surgical History Hx of foot surgery Social History Smoking Status: Never smoker Vital Signs Vital Signs Vital Signs: 07/20/25 08:12 Temperature 96.7 F L Temperature Source Temporal Pulse Rate 72 Respiratory Rate 18 Blood Pressure 159/93 H Blood Pressure Mean 115 Blood Pressure Source Monitor Blood Pressure Position Semi-Fowlers Blood Pressure Location Left Arm Physical Exam Const alert, oriented x3 and no apparent distress General Appearance: cooperative, comfortable and well developed Orientation / Consciousness: awake and oriented to person HEENT normocephalic and head/scalp atraumatic Head and Scalp: normal to inspection Face and Sinus: normal facial exam Nose: external nose normal External Ear: external ears normal Eyes EOMs intact bilaterally Resp normal respiratory effort, normal air movement, no retractions and no use of accessory muscles Effort and Inspection: able to speak in complete sentences Skin Wounds: wounds noted Wound Narrative: Clustered ulcerations are noted on the right pretibial and lateral calf. The ulcerations are full-thickness. Ulcer margins are well beveled. There is no sign of infection or cellulitis. Dimensions are documented elsewhere. Dry eschar and bioburden are noted. The ulcerations are full-thickness, extending into the subcutaneous tissues. An ulceration is also noted on the patient's right lateral foot, which is full-thickness, extending through all layers of the dermis and into the subcutaneous tissues. It is located near the base of the right fifth digit. There is no sign of infection or cellulitis. The base of the ulceration is pink and healthy in appearance. Sloughing epidermis is noted at the margins of the ulceration, suggesting that this may have initiated as a blister. Dimensions are documented elsewhere. The ulceration on the left heel appears to be healed and epithelialized. The plantar aspect of both feet is dry and scaly. Neuro Sensorium / Orientation: awake, alert and oriented to person Psych mental status grossly normal, cooperative and affect normal Debridement Note Debridement Note Wound debrided: Right lateral foot Laterality: Right Wound Grade/Stage: Delgado Grade I Type of Debridement: Excisional debridement Anesthesia Used: 5% Lidocaine Gel Depth: Down to and including healthy tissue and in the subcutaneous layer Percentage of wound debrided: 100 Instrument Used: 5mm curette Tissue Removed: Bioburden Severity: Fat Layer Exposed Amount of bleeding with debridement: Mild Bleeding Controlled with: Compression and gauze Patient tolerated procedure: Patient tolerated procedure well Post-Debridement Measurements and Additional Note: Post-Debridement Measurements/Treatment - Nurse 1 - General Ulcer Assessment Start: 06/22/25 08:23 Freq: Status: Active Protocol: MART Activity Type Activity Date Activity User E-sign Co-sign Detail Recorded Client Recorded Date Recorded By Document 06/22/25 08:24 KW [id number] 06/22/25 08:34 KW Document 06/29/25 08:35 RB [id number] 06/29/25 08:38 RB Document 07/06/25 08:32 DL [id number] 07/06/25 08:42 DL Document 07/13/25 08:25 KW [id number] 07/13/25 08:27 KW Document 07/20/25 08:12 RB [id number] 07/20/25 08:45 RB 06/22/25 06/29/25 07/06/25 08:24 08:35 08:32 - Today's Visit Information Type of service Follow-up Visit Follow-up Visit Follow-up Visit (Physician/PUBLIC INFORMATION RELATIONS MANAGER (Physician/PUBLIC INFORMATION RELATIONS MANAGER (Physician/PUBLIC INFORMATION RELATIONS MANAGER ) ) ) Arrival Mode Ambulatory Ambulatory Ambulatory Transfer Assistance None None Patient Identification Verified (Name & Yes Yes Yes ) Patient Requires Transmission-Based No No Precautions Vital Signs Temperature (97.8 F-99.1 F) 97.0 F L 97.4 F L 97.5 F L Temperature Source Temporal Temporal Temporal Pulse Rate (60-100) 111 H 91 82 Pulse Location Monitor Monitor Monitor Respiratory Rate (12-18) 18 18 18 Respiratory rate source Observation Observation Observation Oxygen Delivery Method Room Air Blood Pressure (90/60-120/80) 149/95 H 165/90 H 139/88 H Blood Pressure Mean 113 115 105 Source Monitor Monitor Monitor Position Sitting Sitting Blood Pressure Location Left Arm Left Arm History Since Last Visit- (Skip if this is Patient's initial visit) Have you changed medications since your No No No last visit? Any new allergies or adverse reactions No No No Had a fall/change in ADL's that may No No No increase risk of falls Signs or symptoms of abuse and/or No No No neglect since last visit Have you been in the hospital since your No No No last visit? Has dressing in place as prescribed Yes Yes Yes Has compression in place as prescribed N/A N/A N/A Has offloadiing in place as prescribed N/A N/A No Experienced any changes in pain level or No No No management Left Footwear Regular Shoe Regular Shoe Right Footwear Regular Shoe Regular Shoe Pain Scale: 0-10 Numeric Is Patient Pain Free? Yes Yes Yes 07/13/25 07/20/25 08:25 08:12 WC - Today's Visit Information Type of service Follow-up Visit Follow-up Visit (Physician/PUBLIC INFORMATION RELATIONS MANAGER (Physician/PUBLIC INFORMATION RELATIONS MANAGER ) ) Arrival Mode Ambulatory Ambulatory Transfer Assistance None Patient Identification Verified (Name & Yes Yes ) Patient Requires Transmission-Based No Precautions Vital Signs Temperature (97.8 F-99.1 F) 96.7 F L 96.7 F L Temperature Source Temporal Temporal Pulse Rate (60-100) 75 72 Pulse Location Monitor Monitor Respiratory Rate (12-18) 18 18 Respiratory rate source Observation Observation Oxygen Delivery Method Room Air Blood Pressure (90/60-120/80) 140/92 H 159/93 H Blood Pressure Mean 108 115 Source Monitor Monitor Position Semi-Fowlers Semi-Fowlers Blood Pressure Location Right Arm Left Arm History Since Last Visit- (Skip if this is Patient's initial visit) Have you changed medications since your No No last visit? Any new allergies or adverse reactions No No Had a fall/change in ADL's that may No No increase risk of falls Signs or symptoms of abuse and/or No No neglect since last visit Have you been in the hospital since your No No last visit? Has dressing in place as prescribed Yes Yes Has compression in place as prescribed N/A N/A Has offloadiing in place as prescribed N/A N/A Experienced any changes in pain level or No Yes management Left Footwear Regular Shoe Regular Shoe Right Footwear Regular Shoe Regular Shoe Pain Scale: 0-10 Numeric Is Patient Pain Free? Yes Yes WC - Nurse 1 - General Ulcer Measurement Start: 06/22/25 08:23 Freq: Status: Active Protocol: Activity Type Activity Date Activity User E-sign Co-sign Detail Recorded Client Recorded Date Recorded By Document 06/22/25 08:24 KW [id number] 06/22/25 08:34 KW Document 06/29/25 08:35 RB [id number] 06/29/25 08:38 RB Document 07/06/25 08:32 DL [id number] 07/06/25 08:42 DL Document 07/13/25 08:25 KW [id number] 07/13/25 08:27 KW Document 07/20/25 08:12 RB [id number] 07/20/25 08:45 RB 06/22/25 06/29/25 07/06/25 08:24 08:35 08:32 Wound Center Nurse 1 18 LT HEEL -Combined with other wound No -Current Size (cm) - Length 0.3 0.5 0.2 -Current Size (cm) - Width 0.3 1.5 0.8 -Current Size (cm) - Depth 0.1 0.1 0.1 -Total Square Cm 0.09 0.75 0.16 -Date of Last Picture (Recall this 06/22/25 field) -Photo Taken Yes -Tunneling No -Undermining/Tunneling No -Circular Undermining No -Exudate Amt Small Medium Small -Exudate Type Serosanguineous Serosanguineous Serosanguineous -Wound Margin Thickened Distinct, Thickened Outline Attached -Granulation Amt Large (67-100%) Medium (34-66%) Small (1-33%) -Granulation Quality Temple Temple Red -Slough/Fibrin Yes -Necrosis Amt Medium (34-66%) Small (1-33%) -Necrotic Tissue Type Adherent Slough Adherent Slough -Structure Exposed N/A N/A -Texture (Milly-wound Skin Appearance) Assessed,Callus Assessed,Callus Scarring -Moisture (Milly-wound Skin Appearance) Assessed Assessed Dry/Scaly -Color (Milly-wound Skin Appearance) Assessed Assessed No Abnormality -Temperature (Milly-wound Skin No Abnormality No Abnormality No Abnormality Appearance) (Pt Warm) (Pt Warm) (Pt Warm) -Tenderness on Palpation (Milly-wound No No No Skin Appearance) -Ulcer Cleansing Soap and Water Wound Cleanser Soap and Water -Foul Odor after Cleansing No No No -Anesthetic Used 5% Lidocaine 5% Lidocaine 5% Lidocaine Gel Gel Gel 16. RLE deluna cluster -Combined with other wound No -Current Size (cm) - Length 11 0.1 0.5 -Current Size (cm) - Width 8 0.1 1.3 -Current Size (cm) - Depth 0.1 0.1 0.1 -Total Square Cm 88 0.01 0.65 -Date of Last Picture (Recall this 06/22/25 field) -Photo Taken Yes -Tunneling No -Undermining/Tunneling No -Circular Undermining No -Exudate Amt Medium Small Small -Exudate Type Serosanguineous Serosanguineous Serosanguineous -Wound Margin Distinct, Distinct, Distinct, Outline Outline Outline Attached Attached Attached -Granulation Amt Large (67-100%) Medium (34-66%) Large (67-100%) -Granulation Quality Red Temple Red -Slough/Fibrin Yes -Necrosis Amt Medium (34-66%) Small (1-33%) -Necrotic Tissue Type Adherent Slough Adherent Slough -Structure Exposed N/A N/A -Texture (Milly-wound Skin Appearance) Assessed Assessed Scarring -Moisture (Milly-wound Skin Appearance) Assessed,Dry/ Assessed No Abnormality Scaly -Color (Milly-wound Skin Appearance) Assessed, Assessed No Abnormality Erythema -Temperature (Milly-wound Skin No Abnormality No Abnormality No Abnormality Appearance) (Pt Warm) (Pt Warm) (Pt Warm) -Tenderness on Palpation (Milly-wound No No No Skin Appearance) -Ulcer Cleansing Soap and Water Wound Cleanser Soap and Water -Foul Odor after Cleansing No No No -Anesthetic Used 5% Lidocaine 5% Lidocaine 5% Lidocaine Gel Gel Gel 15. R plantar -Combined with other wound No -Current Size (cm) - Length 3 0.1 0.1 -Current Size (cm) - Width 1 0.1 0.1 -Current Size (cm) - Depth 0.1 0.1 0.1 -Total Square Cm 3 0.01 0.01 -Date of Last Picture (Recall this 06/22/25 field) -Photo Taken Yes -Tunneling No -Undermining/Tunneling No -Circular Undermining No -Exudate Amt Small Small None Present -Exudate Type Serosanguineous Serosanguineous -Wound Margin Distinct, Distinct, Thickened Outline Outline Attached Attached -Granulation Amt Large (67-100%) Medium (34-66%) Large (67-100%) -Granulation Quality Temple Temple Pale -Slough/Fibrin Yes -Necrosis Amt Small (1-33%) Medium (34-66%) None Present (0 %) -Necrotic Tissue Type Adherent Slough Adherent Slough -Structure Exposed N/A N/A -Texture (Milly-wound Skin Appearance) Assessed,Callus Assessed,Callus Callus,Scarring -Moisture (Milly-wound Skin Appearance) Assessed Assessed Dry/Scaly -Color (Milly-wound Skin Appearance) Assessed Assessed No Abnormality -Temperature (Milly-wound Skin No Abnormality No Abnormality No Abnormality Appearance) (Pt Warm) (Pt Warm) (Pt Warm) -Tenderness on Palpation (Milly-wound No No Skin Appearance) -Ulcer Cleansing Soap and Water Wound Cleanser Soap and Water -Foul Odor after Cleansing No No No -Anesthetic Used 5% Lidocaine 5% Lidocaine 5% Lidocaine Gel Gel Gel 07/13/25 07/20/25 08:25 08:12 Wound Center Nurse 1 18 LT HEEL -Combined with other wound No -Current Size (cm) - Length 0.1 0.6 -Current Size (cm) - Width 0.1 1 -Current Size (cm) - Depth 0.1 0.1 -Total Square Cm 0.01 0.6 -Date of Last Picture (Recall this field) -Photo Taken Yes -Tunneling No -Undermining/Tunneling No -Circular Undermining No -Exudate Amt None Present Medium -Exudate Type Sanguineous -Wound Margin Thickened Distinct, Outline Attached -Granulation Amt Medium (34-66%) -Granulation Quality Temple -Slough/Fibrin Yes -Necrosis Amt Medium (34-66%) -Necrotic Tissue Type Adherent Slough -Structure Exposed N/A -Texture (Milly-wound Skin Appearance) Assessed,Callus Assessed,Callus -Moisture (Milly-wound Skin Appearance) Assessed Assessed -Color (Milly-wound Skin Appearance) Assessed Assessed -Temperature (Milly-wound Skin No Abnormality No Abnormality Appearance) (Pt Warm) (Pt Warm) -Tenderness on Palpation (Milly-wound No No Skin Appearance) -Ulcer Cleansing Rinsed/ Wound Cleanser Irrigated with Saline -Foul Odor after Cleansing No No -Anesthetic Used 5% Lidocaine 5% Lidocaine Gel Gel 16. RLE deluna cluster -Combined with other wound No -Current Size (cm) - Length 0.6 0.1 -Current Size (cm) - Width 1.2 0.1 -Current Size (cm) - Depth 0.1 0.1 -Total Square Cm 0.72 0.01 -Date of Last Picture (Recall this field) -Photo Taken Yes -Tunneling No -Undermining/Tunneling No -Circular Undermining No -Exudate Amt Small Medium -Exudate Type Serosanguineous Serosanguineous -Wound Margin Distinct, Outline Attached -Granulation Amt Medium (34-66%) Medium (34-66%) -Granulation Quality Red Temple -Slough/Fibrin Yes -Necrosis Amt Medium (34-66%) -Necrotic Tissue Type Adherent Slough -Structure Exposed N/A -Texture (Milly-wound Skin Appearance) Assessed Assessed -Moisture (Milly-wound Skin Appearance) Assessed Assessed,Dry/ Scaly -Color (Milly-wound Skin Appearance) Assessed Assessed -Temperature (Milly-wound Skin No Abnormality No Abnormality Appearance) (Pt Warm) (Pt Warm) -Tenderness on Palpation (Milly-wound No No Skin Appearance) -Ulcer Cleansing Rinsed/ Wound Cleanser Irrigated with Saline -Foul Odor after Cleansing No No -Anesthetic Used 5% Lidocaine 5% Lidocaine Gel Gel 15. R plantar -Combined with other wound No -Current Size (cm) - Length 0.1 2.5 -Current Size (cm) - Width 0.2 2 -Current Size (cm) - Depth 0.1 0.1 -Total Square Cm 0.02 5.0 -Date of Last Picture (Recall this field) -Photo Taken Yes -Tunneling No -Undermining/Tunneling No -Circular Undermining No -Exudate Amt Medium -Exudate Type Serosanguineous -Wound Margin Distinct, Outline Attached -Granulation Amt Small (1-33%) Medium (34-66%) -Granulation Quality Temple Temple -Slough/Fibrin Yes -Necrosis Amt Medium (34-66%) -Necrotic Tissue Type Adherent Slough -Structure Exposed N/A -Texture (Milly-wound Skin Appearance) Assessed,Callus Assessed,Callus -Moisture (Milly-wound Skin Appearance) Assessed -Color (Milly-wound Skin Appearance) Assessed, Assessed Atrophie [place] -Temperature (Milly-wound Skin No Abnormality No Abnormality Appearance) (Pt Warm) (Pt Warm) -Tenderness on Palpation (Milly-wound No No Skin Appearance) -Ulcer Cleansing Rinsed/ Wound Cleanser Irrigated with Saline -Foul Odor after Cleansing No No -Anesthetic Used 5% Lidocaine 5% Lidocaine Gel Gel WC - Nurse 2 - General Ulcer CM Notes Start: 06/22/25 08:23 Freq: Status: Active Protocol: Activity Type Activity Date Activity User E-sign Co-sign Detail Recorded Client Recorded Date Recorded By Document 06/22/25 09:19 [id number] 06/22/25 09:39 Document 06/29/25 09:06 [id number] 06/29/25 09:27 GM Document 07/06/25 09:18 GM [id number] 07/06/25 09:42 Document 07/13/25 09:04 [id number] 07/13/25 09:13 GM Document 07/20/25 08:46 [id number] 07/20/25 08:50 GM 06/22/25 06/29/25 07/06/25 09:19 09:06 09:18 Wound Center Nurse 2 18 LT HEEL -Time 09:19 09:08 09:18 -Correct Patient Yes Yes Yes -Correct Side, Site, Position Yes Yes Yes -Correct Procedure Yes Yes Yes -Procedure Performed Yes Yes Yes -Type of Procedure Debridement Debridement Debridement -Clinical Debridement Subcutaneous Subcutaneous Subcutaneous -Tissue Removed Subcutaneous Subcutaneous Subcutaneous -Post Debridement (cm) - Length 1.0 0.5 0.8 -Post Debridement (cm) - Width 1.0 1.5 0.2 -Post Debridement (cm) - Depth 0.1 0.1 0.1 -Total Square (Post) (cm) 1.00 0.75 0.16 -Area of Debridement (cm) - Length 1.0 0.5 0.8 -Area of Debridement (cm) - Width 1.0 1.5 0.2 -Total Square (Area) (cm) 1.00 0.75 0.16 -Tunneling No No No -Undermining/Tunneling No No No -Circular Undermining No No No -Wound/Ulcer Outcome Not Healed Not Healed Not Healed -Ulcer Cleansing Rinsed/ Rinsed/ Rinsed/ Irrigated with Irrigated with Irrigated with Saline Saline Saline -Foul Odor after Cleansing No No No -Bioengineered Tissue No No No -Bleeding Controlled with Pressure Pressure -Treatment Response Procedure Procedure Tolerated Well Tolerated Well -Offloading No No -Debridement - Open, 1st 20sq cm -Debridement - Subq, 1st 20sq cm No No Yes 16. RLE deluna cluster -Time : 09:09 09:18 -Correct Patient Yes Yes Yes -Correct Side, Site, Position Yes Yes Yes -Correct Procedure Yes Yes Yes -Procedure Performed Yes Yes Yes -Type of Procedure Debridement Debridement Debridement -Clinical Debridement Subcutaneous Subcutaneous Epidermis / Dermis -Tissue Removed Subcutaneous Subcutaneous Epidermis, Dermis -Post Debridement (cm) - Length 2.5 1.0 0.7 -Post Debridement (cm) - Width 1.0 1.5 0.8 -Post Debridement (cm) - Depth 0.1 0.1 0.1 -Total Square (Post) (cm) 2.50 1.50 0.56 -Area of Debridement (cm) - Length 2.5 1.0 0.7 -Area of Debridement (cm) - Width 1.0 1.5 0.8 -Total Square (Area) (cm) 2.50 1.50 0.56 -Tunneling No No No -Undermining/Tunneling No No No -Circular Undermining No No No -Wound/Ulcer Outcome Not Healed Not Healed Not Healed -Ulcer Cleansing Rinsed/ Rinsed/ Rinsed/ Irrigated with Irrigated with Irrigated with Saline Saline Saline -Foul Odor after Cleansing No No No -Bioengineered Tissue No No No -Bleeding Controlled with Pressure Pressure Pressure -Treatment Response Procedure Procedure Tolerated Well Tolerated Well -Offloading No -Debridement - Open, 1st 20sq cm No -Debridement - Subq, 1st 20sq cm No No 15. R plantar -Time : 09:09 09:19 -Correct Patient Yes Yes Yes -Correct Side, Site, Position Yes Yes Yes -Correct Procedure Yes Yes Yes -Procedure Performed Yes Yes Yes -Type of Procedure Debridement Debridement Debridement -Clinical Debridement Subcutaneous Subcutaneous Epidermis / Dermis -Tissue Removed Subcutaneous Subcutaneous Epidermis -Post Debridement (cm) - Length 3.0 0.7 0.5 -Post Debridement (cm) - Width 0.5 0.5 0.3 -Post Debridement (cm) - Depth 0.1 0.1 0.1 -Total Square (Post) (cm) 1.50 0.35 0.15 -Area of Debridement (cm) - Length 3.0 0.7 0.5 -Area of Debridement (cm) - Width 0.5 0.5 0.3 -Total Square (Area) (cm) 1.50 0.35 0.15 -Tunneling No No No -Undermining/Tunneling No No No -Circular Undermining No No No -Wound/Ulcer Outcome Not Healed Not Healed Not Healed -Ulcer Cleansing Rinsed/ Rinsed/ Rinsed/ Irrigated with Irrigated with Irrigated with Saline Saline Saline -Foul Odor after Cleansing No No No -Bioengineered Tissue No No No -Bleeding Controlled with Pressure Pressure Pressure -Treatment Response Procedure Procedure Procedure Tolerated Well Tolerated Well Tolerated Well -Offloading No No No -Debridement - Open, 1st 20sq cm Yes -Debridement - Subq, 1st 20sq cm Yes Yes -Debridement, SubQ, ea addt'l 20sq cm or part thereof -Wound Comment(s) Pain Scale: 0-10 Numeric Is Patient Pain Free? Yes Yes Yes 07/13/25 07/20/25 09:04 08:46 Wound Center Nurse 2 18 LT HEEL -Time 09:04 08:47 -Correct Patient Yes Yes -Correct Side, Site, Position Yes Yes -Correct Procedure Yes No -Procedure Performed Yes No -Type of Procedure Debridement -Clinical Debridement Epidermis / Dermis -Tissue Removed Epidermis, Dermis -Post Debridement (cm) - Length 0.8 -Post Debridement (cm) - Width 0.2 -Post Debridement (cm) - Depth 0.1 -Total Square (Post) (cm) 0.16 -Area of Debridement (cm) - Length 0.8 -Area of Debridement (cm) - Width 0.2 -Total Square (Area) (cm) 0.16 -Tunneling No No -Undermining/Tunneling No No -Circular Undermining No No -Wound/Ulcer Outcome Not Healed Healed- Epithelialized -Ulcer Cleansing Not Cleansed Not Cleansed -Foul Odor after Cleansing No No -Bioengineered Tissue No -Bleeding Controlled with NA NA -Treatment Response Procedure Tolerated Well -Offloading -Debridement - Open, 1st 20sq cm Yes -Debridement - Subq, 1st 20sq cm 16. RLE deluna cluster -Time 09:05 08:47 -Correct Patient Yes Yes -Correct Side, Site, Position Yes Yes -Correct Procedure Yes Yes -Procedure Performed Yes Yes -Type of Procedure Debridement Debridement -Clinical Debridement Subcutaneous Subcutaneous -Tissue Removed Subcutaneous Subcutaneous -Post Debridement (cm) - Length 0.6 6.4 -Post Debridement (cm) - Width 1.0 9.0 -Post Debridement (cm) - Depth 0.1 0.1 -Total Square (Post) (cm) 0.60 57.60 -Area of Debridement (cm) - Length 0.6 6.4 -Area of Debridement (cm) - Width 1.0 9.0 -Total Square (Area) (cm) 0.60 57.60 -Tunneling No No -Undermining/Tunneling No No -Circular Undermining No No -Wound/Ulcer Outcome Not Healed Not Healed -Ulcer Cleansing Not Cleansed Not Cleansed -Foul Odor after Cleansing No No -Bioengineered Tissue No -Bleeding Controlled with Pressure Pressure -Treatment Response Procedure Procedure Tolerated Well Tolerated Well -Offloading No No -Debridement - Open, 1st 20sq cm -Debridement - Subq, 1st 20sq cm Yes No 15. R plantar -Time 09:05 08:48 -Correct Patient Yes Yes -Correct Side, Site, Position Yes Yes -Correct Procedure Yes Yes -Procedure Performed Yes Yes -Type of Procedure Debridement Debridement -Clinical Debridement Epidermis / Subcutaneous Dermis -Tissue Removed Epidermis, Subcutaneous Dermis -Post Debridement (cm) - Length 0.5 1.5 -Post Debridement (cm) - Width 0.3 1.7 -Post Debridement (cm) - Depth 0.1 0.1 -Total Square (Post) (cm) 0.15 2.55 -Area of Debridement (cm) - Length 0.5 1.5 -Area of Debridement (cm) - Width 0.3 1.7 -Total Square (Area) (cm) 0.15 2.55 -Tunneling No No -Undermining/Tunneling No No -Circular Undermining No No -Wound/Ulcer Outcome Not Healed Not Healed -Ulcer Cleansing Not Cleansed Rinsed/ Irrigated with Saline -Foul Odor after Cleansing No No -Bioengineered Tissue No No -Bleeding Controlled with NA Pressure -Treatment Response Procedure Procedure Tolerated Well Tolerated Well -Offloading No No -Debridement - Open, 1st 20sq cm No -Debridement - Subq, 1st 20sq cm Yes -Debridement, SubQ, ea addt'l 20sq cm 2 or part thereof -Wound Comment(s) very dry skin Pain Scale: 0-10 Numeric Is Patient Pain Free? Yes Yes WC - Nurse 3 - General Ulcer D/C NN Start: 06/22/25 08:23 Freq: Status: Active Protocol: Activity Type Activity Date Activity User E-sign Co-sign Detail Recorded Client Recorded Date Recorded By Document 06/22/25 09:52 KW [id number] 06/22/25 09:53 KW Document 06/29/25 09:36 KW [id number] 06/29/25 09:37 KW Document 07/06/25 09:55 DL [id number] 07/06/25 09:57 DL Document 07/13/25 09:27 KW [id number] 07/13/25 09:28 KW Document 07/20/25 08:56 KW [id number] 07/20/25 08:57 KW 06/22/25 06/29/25 07/06/25 09:52 09:36 09:55 [facility] Nurse 3 18 LT HEEL -Ulcer Cleansing Rinsed/ Irrigated with Saline -Foul Odor after Cleansing No -Primary Dressing Applied Promogran -Other Dressing lightly moisten hydrogel hydrogel the promogran -Primary Dressing Covered/Secured with Dry Gauze & Dry Gauze & Dry Gauze & Roll Gauze, Roll Gauze, Roll Gauze, Secured with Secured with Secured with Tape Tape Tape -Promogran 1 16. RLE deluna cluster -Ulcer Cleansing Rinsed/ Irrigated with Saline -Foul Odor after Cleansing No -Other Dressing hydrogel hydrogel hydrogel -Primary Dressing Covered/Secured with Dry Gauze, Dry Gauze & Dry Gauze & Secured with Roll Gauze, Roll Gauze, Tape Secured with Secured with Tape Tape 15. R plantar -Ulcer Cleansing Rinsed/ Irrigated with Saline -Foul Odor after Cleansing No -Other Dressing hydrogel hydrogel hydrogel -Primary Dressing Covered/Secured with Dry Gauze, Dry Gauze Dry Gauze & Secured with Roll Gauze, Tape Secured with Tape BLE -Lotion applied to leg before compression wrap -Other Treatment Response Procedure Tolerated Well Pain Scale: 0-10 Numeric Is Patient Pain Free? Yes Yes Yes WC - Visit Discharge Discharge Condition Stable Stable Stable Ambulatory Status Ambulatory Ambulatory Ambulatory Transportation Private Auto [facility] Private Auto Medication Reconcilliation completed & No No provided to patient/care provider Clinical Summary of Care Provided Yes Yes 07/13/25 07/20/25 09:27 08:56 Wound Care Center Nurse 3 18 LT HEEL -Ulcer Cleansing -Foul Odor after Cleansing -Primary Dressing Applied -Other Dressing hydrogel hydrogel -Primary Dressing Covered/Secured with Dry Gauze,Dry Dry Gauze, Gauze & Roll Secured with Gauze,Secured Tape with Tape -Promogran 16. RLE deluna cluster -Ulcer Cleansing -Foul Odor after Cleansing -Other Dressing hydrogel hydrogel -Primary Dressing Covered/Secured with Dry Gauze & Dry Gauze, Roll Gauze, Secured with Secured with Tape Tape 15. R plantar -Ulcer Cleansing -Foul Odor after Cleansing -Other Dressing hydrogel hydrogel -Primary Dressing Covered/Secured with Dry Gauze & Dry Gauze, Roll Gauze, Secured with Secured with Tape Tape BLE -Lotion applied to leg before Yes compression wrap -Other no compression Treatment Response Pain Scale: 0-10 Numeric Is Patient Pain Free? Yes Yes WC - Visit Discharge Discharge Condition Stable Stable Ambulatory Status Ambulatory Ambulatory Transportation Private Auto [employer] Medication Reconcilliation completed & No No provided to patient/care provider Clinical Summary of Care Provided Yes Yes Additional Wound Wound debrided: Right pretibial and lateral calf clustered ulcerations Laterality: Right Type of Debridement: Excisional debridement Anesthesia Used: 5% Lidocaine Gel Depth: Down to and including healthy tissue and in the subcutaneous layer Percentage of wound debrided: 100 Instrument Used: 5mm curette Tissue Removed: Bioburden and dry eschar Severity: Fat Layer Exposed Amount of bleeding with debridement: Mild Bleeding Controlled with: Compression and gauze Patient tolerated procedure: Patient tolerated procedure well Additional Wound Wound Grade/Stage: Grade 1 Charges/Coding Procedures Integumentary Add On Codes: 12046 Beth subq tissue add-on (93404 x 2) Multi Select Codes Visit Charges Office Visit/Consults: 27806 OV L4 New 45 min Integumentary Integumentary CPT Codes: 11612 Beth subq tissue 20 sq cm/< (29516 x 1) Assessment/Plan Assessment/Plan (1) Decubitus ulcer of right foot: CODE(S): L89.899 - Pressure ulcer of other site, unspecified stage QUALIFIERS: Pressure injury stage: stage 2 Qualified Code(s): L89.892 - Pressure ulcer of other site, stage 2 (2) Diabetic ulcer of right foot associated with diabetes mellitus due to underlying condition, with fat layer exposed: CODE(S): E08.621 - Diabetes mellitus due to underlying condition with foot ulcer; L97.512 - Non-pressure chronic ulcer of other part of right foot with fat layer exposed QUALIFIERS: Diabetic foot ulcer location: midfoot Qualified Code(s): E08.621 - Diabetes mellitus due to underlying condition with foot ulcer; L97.412 - Non-pressure chronic ulcer of right heel and midfoot with fat layer exposed (3) Ulcer of right deluna with fat layer exposed: CODE(S): L97.812 - Non-pressure chronic ulcer of other part of right lower leg with fat layer exposed (4) Diabetic foot ulcer associated with type 2 diabetes mellitus, with fat layer exposed: CODE(S): E11.621 - Type 2 diabetes mellitus with foot ulcer; L97.502 - Non-pressure chronic ulcer of other part of unspecified foot with fat layer exposed QUALIFIERS: Diabetic foot ulcer location: midfoot Laterality: left Qualified Code(s): E11.621 - Type 2 diabetes mellitus with foot ulcer; L97.422 - Non-pressure chronic ulcer of left heel and midfoot with fat layer exposed (5) Diabetes: CODE(S): E11.9 - Type 2 diabetes mellitus without complications QUALIFIERS: Diabetes mellitus type: type 2 Diabetes mellitus rn long term care insulin use: with rn long term care use Diabetes mellitus complication status: with hyperglycemia Qualified Code(s): E11.65 - Type 2 diabetes mellitus with hyperglycemia; Z79.4 - rn long term care (current) use of insulin (6) Uncontrolled diabetes mellitus: QUALIFIERS: Diabetes mellitus type: type 2 Glycemic state: with hyperglycemia Qualified Code(s): E11.65 - Type 2 diabetes mellitus with hyperglycemia (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: CODE(S): E11.49 - Type 2 diabetes mellitus with other diabetic neurological complication (8) Insulin dependent diabetes mellitus: (9) HTN (hypertension): CODE(S): I10 - Essential (primary) hypertension QUALIFIERS: Hypertension type: primary hypertension Qualified Code(s): I10 - Essential (primary) hypertension (10) Hyperlipidemia: CODE(S): E78.5 - Hyperlipidemia, unspecified QUALIFIERS: Hyperlipidemia type: unspecified Qualified Code(s): E78.5 - Hyperlipidemia, unspecified (11) PVD (peripheral vascular disease): CODE(S): I73.9 - Peripheral vascular disease, unspecified (12) PAD (peripheral artery disease): CODE(S): I73.9 - Peripheral vascular disease, unspecified (13) Venous insufficiency of both lower extremities: CODE(S): I87.2 - Venous insufficiency (chronic) (peripheral) (14) Obesity: CODE(S): E66.9 - Obesity, unspecified QUALIFIERS: Obesity type: due to excess calories Obesity classification: adult class 1 (BMI 30 - 34.9) Serious obesity comorbidity presence: with serious comorbidity Body mass index: BMI 31.0-31.9 Qualified Code(s): E66.811 - Obesity, class 1; E66.09 - Other obesity due to excess calories; Z68.31 - Body mass index [BMI] 31.0-31.9, adult PLAN: Plan This is a 54-year-old male with ulcerations of his right calf and right lateral foot. He is known to be a poorly controlled diabetic, with a most recent hemoglobin A1c on July 09, 2025, of 14.8. Patient has been urged to optimize his nutritional intake and his glycemic control. He is to continue collaborating with his primary care physician to better regulate his diabetes management. The patient has been encouraged to elevate his lower extremities is much as possible. He is to continue sleeping on a flat mattress. Leg elevation is to be implemented during daytime hours as well. Leg elevation is to be to heart level, or higher, as much as possible. Prolonged idle sitting has been discouraged. Activity has been encouraged. Tubigrips are to be donned on a daily basis for compression purposes. It is suspected that the patient's recent foot ulcerations are due to poorly-fitted footwear. The patient has been encouraged to collaborate with his podiatric specialist, Dr. Ozuna, to obtain properly-fitted footwear for daily use. The patient has been encouraged to shower daily using antibacterial soap. His ulcerations are to be dressed with collagen hydrogel topically and a gauze dressing each day. AmLactin is to be continued topically to the plantar surfaces of his feet in treatment for the dry scaly skin. The patient is to follow-up in 1 week with his regular [facility] physician, Dr. Claudia Mckeon. Total time: 45 minutes
== END 2025-07-22 23:59 | disposition home or self-care (01) ==
LOC: WC 08:00
PROVIDERS: PCP Family Medicine; Referring Provider Family Medicine; Visit Provider Family Medicine
DX: E11.621 Type 2 diabetes mellitus with foot ulcer (principal); E11.622 Type 2 diabetes mellitus with other skin ulcer; L97.522 Non-pressure chronic ulcer of other part of left foot with fat layer exposed; L97.512 Non-pressure chronic ulcer of other part of right foot with fat layer exposed; L97.812 Non-pressure chronic ulcer of other part of right lower leg with fat layer exposed; L97.422 Non-pressure chronic ulcer of left heel and midfoot with fat layer exposed; E11.51 Type 2 diabetes mellitus with diabetic peripheral angiopathy without gangrene; E11.59 Type 2 diabetes mellitus with other circulatory complications; E11.42 Type 2 diabetes mellitus with diabetic polyneuropathy; I87.2 Venous insufficiency (chronic) (peripheral); I89.0 Lymphedema, not elsewhere classified
CPT/HCPCS: 11042; 11045; 97597

== ENCOUNTER 2025-08-17 08:15 | Outpatient (RCR) | payer OTHER, SELFPAY ==
[2025-07-27 09:17] VITALS: BP 154/87; PULSE 61; RESP 18; TEMP 35.8
--- NOTE | 2025-07-27 10:09 | PCM.WC.PN ---
History of Present Illness Date of Service: 07/27/25 Chief Complaint: Ulcerations of the right pretibial and lateral calf, right lateral foot History of Wound: David is a 54 year old male that presents to the wound center for evaluation and treatment of an ulcer of his right foot. The ulcer appeared approximately a week ago. He noticed blood coming from his shoe and there was a blister that had broken open. He has been applying gauze and washing with soap daily to treat the ulcer and was seen at urgent care and started on doxycycline. A wound culture was taken and results showed multiple bacteria with Pseudomonas, Staph and Strep. Anaerobic culture is still pending. He denies systemic symptoms such as fever, chills, erythema, odor. He is struggling financially to afford supplies, medications and taking care of his home and financial responsibilities. 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 His last A1C was 01/2025 and was 13.2 %. He is a very poorly controlled diabetic on insulin. He does not have diabetic shoes. He does see Dr. Ozuna for podiatry for diabetic foot exams. 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 He also had repeat venous testing 04/08/23 which showed incompetence and vascular surgery was considered but was not done at that time. He has not been able to place compression because he is unable to bend to pull on compression stockings due to arthritis in his back. He is not able to wrap with RADHA bandages either. Circaids were tried previously but he was unable to do this as well. He has been wearing tubigrips for compression. He states he still has issues getting them on at times when his back is flared up. He has chronic lymphedema. Subjective Subjective Kian returns today for treatment of his right deluna ulcer and right plantar ulcer. He has had improvement in size of ulcers. He unfortunately developed swelling in his right 4th toe this week and erythema. He denies any increased pain. He is tolerating dressing changes. He returned to work last week and has not noticed any increased drainage or change in his right plantar foot. He denies increased pain, odor or drainage. Objective Data Objective Data Vital Signs: Vital Signs Temp Pulse Resp BP 96.5 F L 61 18 154/87 H 07/27/25 09:17 07/27/25 09:17 07/27/25 09:17 07/27/25 09:17 Physical Exam Const alert, oriented x3 and no apparent distress General Appearance: cooperative, comfortable and well developed Orientation / Consciousness: awake and oriented to person HEENT normocephalic and head/scalp atraumatic Head and Scalp: normal to inspection Face and Sinus: normal facial exam Nose: external nose normal External Ear: external ears normal Eyes EOMs intact bilaterally Resp normal respiratory effort, normal air movement, no retractions and no use of accessory muscles Effort and Inspection: able to speak in complete sentences Skin Wounds: wounds noted Wound Narrative: Clustered ulcerations are noted on the right pretibial and lateral calf. The ulcerations are full-thickness. Ulcer margins are well beveled. There is no sign of infection or cellulitis. Dimensions are documented elsewhere. Dry eschar and bioburden are noted. Right plantar ulcer at base of the 5th digit has minimal slough and good granulation at base of ulcer. Right 4th toe is boggy and edematous with concern of cellulitis and possible osteomyelitis. Toenail easily removed. No bone palpable at base of toenail. The ulceration on the left heel appears to be healed and epithelialized. The plantar aspect of both feet is dry and scaly. Neuro Sensorium / Orientation: awake, alert and oriented to person Psych mental status grossly normal, cooperative and affect normal Debridement Note Debridement Note Wound debrided: Right lateral foot Laterality: Right Wound Grade/Stage: Delgado Grade I Type of Debridement: Excisional debridement Anesthesia Used: 5% Lidocaine Gel Depth: Down to and including healthy tissue and in the subcutaneous layer Percentage of wound debrided: 100 Instrument Used: 5mm curette Tissue Removed: Bioburden, slough Severity: Fat Layer Exposed Amount of bleeding with debridement: Mild Bleeding Controlled with: Compression and gauze Patient tolerated procedure: Patient tolerated procedure well Post-Debridement Measurements and Additional Note: Post-Debridement Measurements/Treatment - Nurse 1 - General Ulcer Assessment Start: 07/27/25 09:17 Freq: Status: Active Protocol: MART Activity Type Activity Date Activity User E-sign Co-sign Detail Recorded Client Recorded Date Recorded By Document 07/27/25 09:17 JOSE ALFREDO [id number] 07/27/25 09:20 RB 07/27/25 09:17 - Today's Visit Information Type of service Follow-up Visit (Physician/WEASAND TRIMMER ) Arrival Mode Ambulatory Transfer Assistance None Patient Identification Verified (Name & Yes ) Patient Requires Transmission-Based No Precautions Vital Signs Temperature (97.8 F-99.1 F) 96.5 F L Temperature Source Temporal Pulse Rate (60-100) 61 Pulse Location Monitor Respiratory Rate (12-18) 18 Respiratory rate source Observation Blood Pressure (90/60-120/80) 154/87 H Blood Pressure Mean (mm Hg) 109 Source Monitor Position Semi-Fowlers Blood Pressure Location Left Arm History Since Last Visit- (Skip if this is Patient's initial visit) Have you changed medications since your No last visit? Any new allergies or adverse reactions No Had a fall/change in ADL's that may No increase risk of falls Signs or symptoms of abuse and/or No neglect since last visit Have you been in the hospital since your No last visit? Has dressing in place as prescribed Yes Has compression in place as prescribed N/A Has offloadiing in place as prescribed N/A Experienced any changes in pain level or No management Left Footwear Regular Shoe Right Footwear Regular Shoe Pain Scale: 0-10 Numeric Is Patient Pain Free? Yes - Nurse 1 - General Ulcer Measurement Start: 07/27/25 09:17 Freq: Status: Active Protocol: Activity Type Activity Date Activity User E-sign Co-sign Detail Recorded Client Recorded Date Recorded By Document 07/27/25 09:17 JOSE ALFREDO [id number] 07/27/25 09:20 RB 07/27/25 09:17 Wound Center Nurse 1 16. RLE deluna cluster -Combined with other wound No -Current Size (cm) - Length 0.1 -Current Size (cm) - Width 0.1 -Current Size (cm) - Depth 0.1 -Total Square Cm 0.01 -Photo Taken Yes -Tunneling No -Undermining/Tunneling No -Circular Undermining No -Exudate Amt Small -Exudate Type Serous -Wound Margin Distinct, Outline Attached -Granulation Amt Medium (34-66%) -Granulation Quality Bray -Slough/Fibrin Yes -Necrosis Amt Large (67-100%) -Necrotic Tissue Type Adherent Slough -Structure Exposed N/A -Texture (Milly-wound Skin Appearance) Assessed -Moisture (Milly-wound Skin Appearance) Assessed,Dry/ Scaly -Color (Milly-wound Skin Appearance) Assessed -Temperature (Milly-wound Skin No Abnormality Appearance) (Pt Warm) -Tenderness on Palpation (Milly-wound No Skin Appearance) -Ulcer Cleansing Wound Cleanser -Foul Odor after Cleansing No -Anesthetic Used 5% Lidocaine Gel 15. R plantar -Combined with other wound No -Current Size (cm) - Length 1.2 -Current Size (cm) - Width 1.4 -Current Size (cm) - Depth 0.1 -Total Square Cm 1.68 -Photo Taken Yes -Tunneling No -Undermining/Tunneling No -Circular Undermining No -Exudate Amt Medium -Exudate Type Serosanguineous -Wound Margin Distinct, Outline Attached -Granulation Amt Medium (34-66%) -Granulation Quality Bray -Slough/Fibrin Yes -Necrosis Amt Small (1-33%) -Necrotic Tissue Type Adherent Slough -Structure Exposed N/A -Texture (Milly-wound Skin Appearance) Callus -Moisture (Milly-wound Skin Appearance) Assessed -Color (Milly-wound Skin Appearance) Assessed -Temperature (Milly-wound Skin No Abnormality Appearance) (Pt Warm) -Tenderness on Palpation (Milly-wound No Skin Appearance) -Ulcer Cleansing Wound Cleanser -Foul Odor after Cleansing No -Anesthetic Used 5% Lidocaine Gel Lower Limb Edema Present Yes Right Calf (cm) 41 Right Ankle (cm) 23.1 - Nurse 2 - General Ulcer CM Notes Start: 07/27/25 09:17 Freq: Status: Active Protocol: Activity Type Activity Date Activity User E-sign Co-sign Detail Recorded Client Recorded Date Recorded By Document 07/27/25 09:53 [id number] 07/27/25 10:01 07/27/25 09:53 Wound Center Nurse 2 #19 Right 4th toe -Time 09:56 -Correct Patient Yes -Correct Side, Site, Position Yes -Correct Procedure Yes -Procedure Performed Yes -Type of Procedure Debridement -Clinical Debridement Subcutaneous -Tissue Removed Subcutaneous -Post Debridement (cm) - Length 0.5 -Post Debridement (cm) - Width 1.0 -Post Debridement (cm) - Depth 0.2 -Total Square (Post) (cm) 0.50 -Area of Debridement (cm) - Length 0.5 -Area of Debridement (cm) - Width 1.0 -Total Square (Area) (cm) 0.50 -Tunneling No -Undermining/Tunneling No -Circular Undermining No -Wound/Ulcer Outcome Not Healed -Ulcer Cleansing Rinsed/ Irrigated with Saline -Foul Odor after Cleansing No -Bioengineered Tissue No -Bleeding Controlled with Pressure -Treatment Response Procedure Tolerated Well -Debridement - Subq, 1st 20sq cm No 16. RLE deluna cluster -Time 09:54 -Correct Patient Yes -Correct Side, Site, Position Yes -Correct Procedure Yes -Procedure Performed Yes -Type of Procedure Debridement -Clinical Debridement Subcutaneous -Tissue Removed Subcutaneous -Post Debridement (cm) - Length 0.4 -Post Debridement (cm) - Width 0.5 -Post Debridement (cm) - Depth 0.1 -Total Square (Post) (cm) 0.20 -Area of Debridement (cm) - Length 0.4 -Area of Debridement (cm) - Width 0.5 -Total Square (Area) (cm) 0.20 -Tunneling No -Undermining/Tunneling No -Circular Undermining No -Wound/Ulcer Outcome Not Healed -Ulcer Cleansing Rinsed/ Irrigated with Saline -Foul Odor after Cleansing No -Bioengineered Tissue No -Bleeding Controlled with Pressure -Treatment Response Procedure Tolerated Well -Offloading No -Debridement - Subq, 1st 20sq cm No 15. R plantar -Time 09:55 -Correct Patient Yes -Correct Side, Site, Position Yes -Correct Procedure Yes -Procedure Performed Yes -Type of Procedure Debridement -Clinical Debridement Subcutaneous -Tissue Removed Subcutaneous -Post Debridement (cm) - Length 1.1 -Post Debridement (cm) - Width 1.0 -Post Debridement (cm) - Depth 0.1 -Total Square (Post) (cm) 1.10 -Area of Debridement (cm) - Length 1.1 -Area of Debridement (cm) - Width 1.0 -Total Square (Area) (cm) 1.10 -Tunneling No -Undermining/Tunneling No -Circular Undermining No -Wound/Ulcer Outcome Not Healed -Ulcer Cleansing Rinsed/ Irrigated with Saline -Foul Odor after Cleansing No -Bioengineered Tissue No -Bleeding Controlled with Pressure -Treatment Response Procedure Tolerated Well -Offloading No -Debridement - Subq, 1st 20sq cm Yes Pain Scale: 0-10 Numeric Is Patient Pain Free? Yes Additional Wound Wound debrided: Right pretibial and lateral calf clustered ulcerations Laterality: Right Type of Debridement: Excisional debridement Anesthesia Used: 5% Lidocaine Gel Depth: Down to and including healthy tissue and in the subcutaneous layer Percentage of wound debrided: 100 Instrument Used: 5mm curette Tissue Removed: Bioburden and dry eschar Severity: Fat Layer Exposed Amount of bleeding with debridement: Mild Bleeding Controlled with: Compression and gauze Patient tolerated procedure: Patient tolerated procedure well Additional Wound Wound debrided: right 4th toe Laterality: Right Type of Debridement: Excisional debridement Anesthesia Used: 4% Lidocaine Solution Depth: Down to and including healthy tissue and in the subcutaneous layer Percentage of wound debrided: 100 Instrument Used: 3mm curette Tissue Removed: toe nail, devitalized tissue Severity: Fat Layer Exposed Amount of bleeding with debridement: Mild Bleeding Controlled with: Compression and gauze Patient tolerated procedure: Patient tolerated procedure well Additional Wound Wound Grade/Stage: Grade 1 Assessment/Plan Assessment/Plan (1) Decubitus ulcer of right foot: CODE(S): L89.899 - Pressure ulcer of other site, unspecified stage QUALIFIERS: Pressure injury stage: stage 2 Qualified Code(s): L89.892 - Pressure ulcer of other site, stage 2 (2) Diabetic ulcer of right foot associated with diabetes mellitus due to underlying condition, with fat layer exposed: CODE(S): E08.621 - Diabetes mellitus due to underlying condition with foot ulcer; L97.512 - Non-pressure chronic ulcer of other part of right foot with fat layer exposed QUALIFIERS: Diabetic foot ulcer location: midfoot Qualified Code(s): E08.621 - Diabetes mellitus due to underlying condition with foot ulcer; L97.412 - Non-pressure chronic ulcer of right heel and midfoot with fat layer exposed (3) Ulcer of right deluna with fat layer exposed: CODE(S): L97.812 - Non-pressure chronic ulcer of other part of right lower leg with fat layer exposed (4) Diabetic foot ulcer associated with type 2 diabetes mellitus, with fat layer exposed: CODE(S): E11.621 - Type 2 diabetes mellitus with foot ulcer; L97.502 - Non-pressure chronic ulcer of other part of unspecified foot with fat layer exposed QUALIFIERS: Diabetic foot ulcer location: midfoot Laterality: left Qualified Code(s): E11.621 - Type 2 diabetes mellitus with foot ulcer; L97.422 - Non-pressure chronic ulcer of left heel and midfoot with fat layer exposed (5) Diabetes: CODE(S): E11.9 - Type 2 diabetes mellitus without complications QUALIFIERS: Diabetes mellitus complication status: with hyperglycemia Diabetes mellitus longterm insulin use: with longterm use Diabetes mellitus type: type 2 Qualified Code(s): E11.65 - Type 2 diabetes mellitus with hyperglycemia; Z79.4 - FPC (current) use of insulin (6) Uncontrolled diabetes mellitus: QUALIFIERS: Diabetes mellitus type: type 2 Glycemic state: with hyperglycemia Qualified Code(s): E11.65 - Type 2 diabetes mellitus with hyperglycemia (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: CODE(S): E11.49 - Type 2 diabetes mellitus with other diabetic neurological complication (8) Insulin dependent diabetes mellitus: (9) HTN (hypertension): CODE(S): I10 - Essential (primary) hypertension QUALIFIERS: Hypertension type: primary hypertension Qualified Code(s): I10 - Essential (primary) hypertension (10) Hyperlipidemia: CODE(S): E78.5 - Hyperlipidemia, unspecified QUALIFIERS: Hyperlipidemia type: unspecified Qualified Code(s): E78.5 - Hyperlipidemia, unspecified (11) PVD (peripheral vascular disease): CODE(S): I73.9 - Peripheral vascular disease, unspecified (12) PAD (peripheral artery disease): CODE(S): I73.9 - Peripheral vascular disease, unspecified (13) Venous insufficiency of both lower extremities: CODE(S): I87.2 - Venous insufficiency (chronic) (peripheral) (14) Obesity: CODE(S): E66.9 - Obesity, unspecified QUALIFIERS: Body mass index: BMI 31.0-31.9 Obesity classification: adult class 1 (BMI 30 - 34.9) Obesity type: due to excess calories Serious obesity comorbidity presence: with serious comorbidity Qualified Code(s): E66.811 - Obesity, class 1; E66.09 - Other obesity due to excess calories; Z68.31 - Body mass index [BMI] 31.0-31.9, adult PLAN: Plan Evaluation and debridement performed today in clinic as annotated above. At home wound-care instructions: He will dress his ulcers of his right deluna and left heel with hydrogel and gauze daily. Apply vaseline or other emollient cream to his feet daily to reduce callus formation. Keep dressings dry and intact. Off-loading: The patient was instructed to avoid pressure and friction on the affected areas. Reposition every 2 hours at minimum. Avoid prolonged standing and/or dangling of legs. When seated, feet should be elevated at chest level. Frequent ambulation is encouraged. Diet: Patient encouraged to increase protein intake while taking caution to avoid high carbohydrate and/or sugar intake and try to achieve A1C if 7.5% or less. Currently 13.2% at last check. Labs/cultures/imaging: Culture done today of right 4th toe and he was started on Levofloxacin. XR ordered to evaluate for possible osteomyelitis. Follow-up: Return in 1 week for wound care follow up. Return sooner or report to the emergency room should symptoms worsen, or new symptoms arise.
--- NOTE | 2025-07-27 10:59 | RAD_ITS ---
PROCEDURE: TOE(S) MIN 2 VIEWS 07/27/2025 REASON FOR EXAM: R/O OSTEOMYELITIS/JENKINS GRADE 2 ULCER R 4TH TOE TECHNIQUE: Procedure Code: RADTO Modality: DX Procedure: TOE(S) MIN 2 VIEWS Laterality: FINDINGS: No visible fracture. No significant osseous erosions. Normal alignment. Soft tissue swelling of the 4th toe. Mild interphalangeal degenerative changes. RAD/Toe(s) Min 2 Views IMPRESSION: No significant osseous abnormalities. Soft tissue swelling. Reading Location: [id number]
--- NOTE | 2025-07-27 13:35 | WC ---
photo-right plantar 07/27/25
--- NOTE | 2025-07-27 13:36 | WC ---
PHOTO-RIGHT SHARP 07/27/25
[2025-08-03 08:15] VITALS: BP 180/98; PULSE 87; RESP 18; TEMP 36.3
--- NOTE | 2025-08-03 08:46 | PN.PCM_ITS ---
History of Present Illness Date of Service: 08/03/25 Chief Complaint: Ulcerations of the right pretibial and lateral calf, right lateral foot History of Wound: David is a 54 year old male that presents to the wound center for evaluation and treatment of an ulcer of his right foot. The ulcer appeared approximately a week ago. He noticed blood coming from his shoe and there was a blister that had broken open. He has been applying gauze and washing with soap daily to treat the ulcer and was seen at urgent care and started on doxycycline. A wound culture was taken and results showed multiple bacteria with Pseudomonas, Staph and Strep. Anaerobic culture is still pending. He denies systemic symptoms such as fever, chills, erythema, odor. He is struggling financially to afford supplies, medications and taking care of his home and financial responsibilities. 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 His last A1C was 01/2025 and was 13.2 %. He is a very poorly controlled diabetic on insulin. He does not have diabetic shoes. He does see Dr. Ozuna for podiatry for diabetic foot exams. 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 He also had repeat venous testing 04/08/23 which showed incompetence and vascular surgery was considered but was not done at that time. He has not been able to place compression because he is unable to bend to pull on compression stockings due to arthritis in his back. He is not able to wrap with RADHA bandages either. Circaids were tried previously but he was unable to do this as well. He has been wearing tubigrips for compression. He states he still has issues getting them on at times when his back is flared up. He has chronic lymphedema. Subjective Subjective Kian returns today for treatment of his right deluna ulcer and right plantar ulcer and right 4th toe ulcer. Cultures were positive for MRSA and anaerobic bacteria. 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 He plans on picking them up today. XR of toe did not show any osteomyelitis currently. He denies any increased pain. He is tolerating dressing changes. He returned to work beginning of July and has not noticed any increased drainage or change in his right plantar foot. He denies increased pain, odor or drainage. Objective Data Objective Data Vital Signs: Vital Signs Temp Pulse Resp BP 97.3 F L 87 18 180/98 H 08/03/25 08:15 08/03/25 08:15 08/03/25 08:15 08/03/25 08:15 Lab / Micro Data Micro: Microbiology 07/27/25 10:00 Wound - Toe Gram Stain - Final 07/27/25 10:00 Wound - Toe Wound Culture - Final Staphylococcus aureus Streptococcus agalactiae (B) Meth. resistant Staph. aureus 07/27/25 10:00 Wound - Toe Anaerobic Culture - Final Anaerobic cocci Physical Exam Const alert, oriented x3 and no apparent distress General Appearance: cooperative, comfortable and well developed Orientation / Consciousness: awake and oriented to person HEENT normocephalic and head/scalp atraumatic Eyes EOMs intact bilaterally Resp normal respiratory effort, normal air movement, no retractions and no use of accessory muscles Effort and Inspection: able to speak in complete sentences Skin Wounds: wounds noted Wound Narrative: Clustered ulcerations are noted on the right pretibial and lateral calf. The ulcerations are full-thickness. Ulcer margins are well beveled. There is no sign of infection or cellulitis. Dimensions are documented elsewhere. Dry eschar and bioburden are noted. Right plantar ulcer at base of the 5th digit has minimal slough and good granulation at base of ulcer. Right 4th toe is boggy and edematous and ulcer present at nail bed that undermines proximally toward the base of his 4th toe. The ulceration on the left heel appears to be healed and epithelialized. The plantar aspect of left foot is dry and scaly. Neuro Sensorium / Orientation: awake, alert and oriented to person Psych mental status grossly normal, cooperative and affect normal Debridement Note Debridement Note Wound debrided: Right lateral foot Laterality: Right Wound Grade/Stage: Delgado Grade I Type of Debridement: Excisional debridement Anesthesia Used: 5% Lidocaine Gel Depth: Down to and including healthy tissue and in the subcutaneous layer Percentage of wound debrided: 100 Instrument Used: 3mm curette Tissue Removed: yellow slough, devitalized tissue Severity: Fat Layer Exposed Amount of bleeding with debridement: Mild Bleeding Controlled with: Compression and gauze Patient tolerated procedure: Patient tolerated procedure well Post-Debridement Measurements and Additional Note: Post-Debridement Measurements/Treatment WC - Nurse 1 - General Ulcer Assessment Start: 07/27/25 09:17 Freq: Status: Active Protocol: MART Activity Type Activity Date Activity User E-sign Co-sign Detail Recorded Client Recorded Date Recorded By Document 07/27/25 09:17 RB [id number] 07/27/25 09:20 RB Document 08/03/25 08:15 RB [id number] 08/03/25 08:18 RB 07/27/25 08/03/25 09:17 08:15 WC - Today's Visit Information Type of service Follow-up Visit Follow-up Visit (Physician/ECHO TECH (Physician/ECHO TECH ) ) Arrival Mode Ambulatory Ambulatory Transfer Assistance None None Patient Identification Verified (Name & Yes Yes ) Patient Requires Transmission-Based No No Precautions Vital Signs Temperature (97.8 F-99.1 F) 96.5 F L 97.3 F L Temperature Source Temporal Temporal Pulse Rate (60-100) 61 87 Pulse Location Monitor Monitor Respiratory Rate (12-18) 18 18 Respiratory rate source Observation Observation Blood Pressure (90/60-120/80) 154/87 H 180/98 H Blood Pressure Mean (mm Hg) 109 125 Source Monitor Monitor Position Semi-Fowlers Semi-Fowlers Blood Pressure Location Left Arm Left Arm History Since Last Visit- (Skip if this is Patient's initial visit) Have you changed medications since your No No last visit? Any new allergies or adverse reactions No No Had a fall/change in ADL's that may No No increase risk of falls Signs or symptoms of abuse and/or No No neglect since last visit Have you been in the hospital since your No No last visit? Has dressing in place as prescribed Yes Yes Has compression in place as prescribed N/A N/A Has offloadiing in place as prescribed N/A N/A Experienced any changes in pain level or No No management Left Footwear Regular Shoe Regular Shoe Right Footwear Regular Shoe Regular Shoe Pain Scale: 0-10 Numeric Is Patient Pain Free? Yes Yes DESMOND - Nurse 1 - General Ulcer Measurement Start: 07/27/25 09:17 Freq: Status: Active Protocol: Activity Type Activity Date Activity User E-sign Co-sign Detail Recorded Client Recorded Date Recorded By Document 07/27/25 09:17 RB [id number] 07/27/25 09:20 RB Document 08/03/25 08:15 RB [id number] 08/03/25 08:18 RB 07/27/25 08/03/25 09:17 08:15 Wound Center Nurse 1 #19 Right 4th toe -Combined with other wound No -Current Size (cm) - Length 0.3 -Current Size (cm) - Width 0.7 -Current Size (cm) - Depth 0.5 -Total Square Cm 0.21 -Photo Taken Yes -Tunneling No -Undermining/Tunneling No -Circular Undermining No -Exudate Amt Medium -Exudate Type Serosanguineous -Wound Margin Distinct, Outline Attached -Granulation Amt Medium (34-66%) -Granulation Quality [place] -Slough/Fibrin Yes -Necrosis Amt Medium (34-66%) -Necrotic Tissue Type Adherent Slough -Structure Exposed N/A -Texture (Milly-wound Skin Appearance) Assessed, Excoriation -Moisture (Milly-wound Skin Appearance) Assessed -Color (Milly-wound Skin Appearance) Assessed -Temperature (Milly-wound Skin No Abnormality Appearance) (Pt Warm) -Tenderness on Palpation (Milly-wound No Skin Appearance) -Ulcer Cleansing Wound Cleanser -Foul Odor after Cleansing No -Anesthetic Used 5% Lidocaine Gel 16. RLE deluna cluster -Combined with other wound No No -Current Size (cm) - Length 0.1 0.1 -Current Size (cm) - Width 0.1 0.1 -Current Size (cm) - Depth 0.1 0.1 -Total Square Cm 0.01 0.01 -Photo Taken Yes Yes -Tunneling No No -Undermining/Tunneling No No -Circular Undermining No No -Exudate Amt Small Medium -Exudate Type Serous Serosanguineous -Wound Margin Distinct, Distinct, Outline Outline Attached Attached -Granulation Amt Medium (34-66%) Medium (34-66%) -Granulation Quality [place] -Slough/Fibrin Yes Yes -Necrosis Amt Large (67-100%) Medium (34-66%) -Necrotic Tissue Type Adherent Slough Adherent Slough -Structure Exposed N/A N/A -Texture (Milly-wound Skin Appearance) Assessed Assessed -Moisture (Milly-wound Skin Appearance) Assessed,Dry/ Assessed Scaly -Color (Milly-wound Skin Appearance) Assessed Assessed -Temperature (Milly-wound Skin No Abnormality No Abnormality Appearance) (Pt Warm) (Pt Warm) -Tenderness on Palpation (Milly-wound No No Skin Appearance) -Ulcer Cleansing Wound Cleanser Wound Cleanser -Foul Odor after Cleansing No No -Anesthetic Used 5% Lidocaine 5% Lidocaine Gel Gel 15. R plantar -Combined with other wound No No -Current Size (cm) - Length 1.2 0.7 -Current Size (cm) - Width 1.4 0.9 -Current Size (cm) - Depth 0.1 0.1 -Total Square Cm 1.68 0.63 -Photo Taken Yes Yes -Tunneling No No -Undermining/Tunneling No No -Circular Undermining No No -Exudate Amt Medium Medium -Exudate Type Serosanguineous Serosanguineous -Wound Margin Distinct, Distinct, Outline Outline Attached Attached -Granulation Amt Medium (34-66%) Medium (34-66%) -Granulation Quality [place] -Slough/Fibrin Yes Yes -Necrosis Amt Small (1-33%) Medium (34-66%) -Necrotic Tissue Type Adherent Slough Adherent Slough -Structure Exposed N/A N/A -Texture (Milly-wound Skin Appearance) Callus Assessed,Callus -Moisture (Milly-wound Skin Appearance) Assessed Assessed -Color (Milly-wound Skin Appearance) Assessed Assessed -Temperature (Milly-wound Skin No Abnormality No Abnormality Appearance) (Pt Warm) (Pt Warm) -Tenderness on Palpation (Milly-wound No No Skin Appearance) -Ulcer Cleansing Wound Cleanser Wound Cleanser -Foul Odor after Cleansing No No -Anesthetic Used 5% Lidocaine 5% Lidocaine Gel Gel Lower Limb Edema Present Yes Yes Right Calf (cm) 41 40.1 Right Ankle (cm) 23.1 24 - Nurse 2 - General Ulcer CM Notes Start: 07/27/25 09:17 Freq: Status: Active Protocol: Activity Type Activity Date Activity User E-sign Co-sign Detail Recorded Client Recorded Date Recorded By Document 07/27/25 09:53 [id number] 07/27/25 10:01 Document 08/03/25 08:27 [id number] 08/03/25 08:41 GM 07/27/25 08/03/25 09:53 08:27 Wound Center Nurse 2 #19 Right 4th toe -Time 09:56 08:29 -Correct Patient Yes Yes -Correct Side, Site, Position Yes Yes -Correct Procedure Yes Yes -Procedure Performed Yes Yes -Type of Procedure Debridement Debridement -Clinical Debridement Subcutaneous Subcutaneous -Tissue Removed Subcutaneous Subcutaneous -Post Debridement (cm) - Length 0.5 0.2 -Post Debridement (cm) - Width 1.0 1.0 -Post Debridement (cm) - Depth 0.2 0.3 -Total Square (Post) (cm) 0.50 0.20 -Area of Debridement (cm) - Length 0.5 0.2 -Area of Debridement (cm) - Width 1.0 1.0 -Total Square (Area) (cm) 0.50 0.20 -Tunneling No No -Undermining/Tunneling No No -Circular Undermining No No -Wound/Ulcer Outcome Not Healed Not Healed -Ulcer Cleansing Rinsed/ Rinsed/ Irrigated with Irrigated with Saline Saline -Foul Odor after Cleansing No No -Bioengineered Tissue No No -Bleeding Controlled with Pressure Pressure -Treatment Response Procedure Procedure Tolerated Well Tolerated Well -Offloading No -Debridement - Subq, 1st 20sq cm No No 16. RLE deluna cluster -Time 09:54 08:30 -Correct Patient Yes Yes -Correct Side, Site, Position Yes Yes -Correct Procedure Yes Yes -Procedure Performed Yes Yes -Type of Procedure Debridement Debridement -Clinical Debridement Subcutaneous Subcutaneous -Tissue Removed Subcutaneous Subcutaneous -Post Debridement (cm) - Length 0.4 0.3 -Post Debridement (cm) - Width 0.5 0.2 -Post Debridement (cm) - Depth 0.1 0.1 -Total Square (Post) (cm) 0.20 0.06 -Area of Debridement (cm) - Length 0.4 0.3 -Area of Debridement (cm) - Width 0.5 0.2 -Total Square (Area) (cm) 0.20 0.06 -Tunneling No No -Undermining/Tunneling No No -Circular Undermining No No -Wound/Ulcer Outcome Not Healed Not Healed -Ulcer Cleansing Rinsed/ Rinsed/ Irrigated with Irrigated with Saline Saline -Foul Odor after Cleansing No No -Bioengineered Tissue No No -Bleeding Controlled with Pressure Pressure -Treatment Response Procedure Procedure Tolerated Well Tolerated Well -Offloading No No -Debridement - Subq, 1st 20sq cm No No 15. R plantar -Time 09:55 08:30 -Correct Patient Yes Yes -Correct Side, Site, Position Yes Yes -Correct Procedure Yes Yes -Procedure Performed Yes Yes -Type of Procedure Debridement Debridement -Clinical Debridement Subcutaneous Subcutaneous -Tissue Removed Subcutaneous Subcutaneous -Post Debridement (cm) - Length 1.1 0.9 -Post Debridement (cm) - Width 1.0 1.0 -Post Debridement (cm) - Depth 0.1 0.1 -Total Square (Post) (cm) 1.10 0.90 -Area of Debridement (cm) - Length 1.1 0.9 -Area of Debridement (cm) - Width 1.0 1.0 -Total Square (Area) (cm) 1.10 0.90 -Tunneling No No -Undermining/Tunneling No No -Circular Undermining No No -Wound/Ulcer Outcome Not Healed Not Healed -Ulcer Cleansing Rinsed/ Rinsed/ Irrigated with Irrigated with Saline Saline -Foul Odor after Cleansing No No -Bioengineered Tissue No No -Bleeding Controlled with Pressure Pressure -Treatment Response Procedure Procedure Tolerated Well Tolerated Well -Offloading No No -Debridement - Subq, 1st 20sq cm Yes Yes Pain Scale: 0-10 Numeric Is Patient Pain Free? Yes Yes - Nurse 3 - General Ulcer D/C NN Start: 07/27/25 09:17 Freq: Status: Active Protocol: Activity Type Activity Date Activity User E-sign Co-sign Detail Recorded Client Recorded Date Recorded By Document 07/27/25 10:29 ML [id number] 07/27/25 10:31 ML 07/27/25 10:29 Wound Care Center Nurse 3 #19 Right 4th toe -Ulcer Cleansing Rinsed/ Irrigated with Saline -Primary Dressing Applied Aquacel Extra -Primary Dressing Covered/Secured with Dry Gauze, Secured with Tape -Aquacel Extra 1 16. RLE deluna cluster -Primary Dressing Applied C Hydrogel -Primary Dressing Covered/Secured with Dry Gauze & Roll Gauze, Secured with Tape -Hydrogel 0 15. R plantar -Ulcer Cleansing Rinsed/ Irrigated with Saline -Primary Dressing Applied Promogran -Primary Dressing Covered/Secured with Dry Gauze & Roll Gauze, Secured with Tape -Promogran 1 Pain Scale: 0-10 Numeric Is Patient Pain Free? Yes Additional Wound Wound debrided: Right pretibial and lateral calf clustered ulcerations Laterality: Right Type of Debridement: Excisional debridement Anesthesia Used: 5% Lidocaine Gel Depth: Down to and including healthy tissue and in the subcutaneous layer Percentage of wound debrided: 100 Instrument Used: 3mm curette Tissue Removed: yellow slough, devitalized tissue Severity: Fat Layer Exposed Amount of bleeding with debridement: Mild Bleeding Controlled with: Compression and gauze Patient tolerated procedure: Patient tolerated procedure well Additional Wound Wound debrided: right 4th toe Laterality: Right Wound Grade/Stage: Grade 1 Type of Debridement: Excisional debridement Anesthesia Used: 4% Lidocaine Solution Depth: Down to and including healthy tissue and in the subcutaneous layer Percentage of wound debrided: 100 Instrument Used: 3mm curette Tissue Removed: devitalized tissue Severity: Fat Layer Exposed Amount of bleeding with debridement: Mild Bleeding Controlled with: Compression and gauze Patient tolerated procedure: Patient tolerated procedure well Assessment/Plan Assessment/Plan (1) Decubitus ulcer of right foot: CODE(S): L89.899 - Pressure ulcer of other site, unspecified stage QUALIFIERS: Pressure injury stage: stage 2 Qualified Code(s): L89.892 - Pressure ulcer of other site, stage 2 (2) Diabetic ulcer of right foot associated with diabetes mellitus due to underlying condition, with fat layer exposed: CODE(S): E08.621 - Diabetes mellitus due to underlying condition with foot ulcer; L97.512 - Non-pressure chronic ulcer of other part of right foot with fat layer exposed QUALIFIERS: Diabetic foot ulcer location: midfoot Qualified Code(s): E08.621 - Diabetes mellitus due to underlying condition with foot ulcer; L97.412 - Non-pressure chronic ulcer of right heel and midfoot with fat layer exposed (3) Ulcer of right deluna with fat layer exposed: CODE(S): L97.812 - Non-pressure chronic ulcer of other part of right lower leg with fat layer exposed (4) Diabetic foot ulcer associated with type 2 diabetes mellitus, with fat layer exposed: CODE(S): E11.621 - Type 2 diabetes mellitus with foot ulcer; L97.502 - Non-pressure chronic ulcer of other part of unspecified foot with fat layer exposed QUALIFIERS: Diabetic foot ulcer location: midfoot Laterality: left Qualified Code(s): E11.621 - Type 2 diabetes mellitus with foot ulcer; L97.422 - Non-pressure chronic ulcer of left heel and midfoot with fat layer exposed (5) Diabetes: CODE(S): E11.9 - Type 2 diabetes mellitus without complications QUALIFIERS: Diabetes mellitus type: type 2 Diabetes mellitus remote computer terminal operator insulin use: with remote computer terminal operator use Diabetes mellitus complication status: with hyperglycemia Qualified Code(s): E11.65 - Type 2 diabetes mellitus with hyperglycemia; Z79.4 - remote computer terminal operator (current) use of insulin (6) Uncontrolled diabetes mellitus: QUALIFIERS: Diabetes mellitus type: type 2 Glycemic state: with hyperglycemia Qualified Code(s): E11.65 - Type 2 diabetes mellitus with hyperglycemia (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: CODE(S): E11.49 - Type 2 diabetes mellitus with other diabetic neurological complication (8) Insulin dependent diabetes mellitus: (9) HTN (hypertension): CODE(S): I10 - Essential (primary) hypertension QUALIFIERS: Hypertension type: primary hypertension Qualified Code(s): I10 - Essential (primary) hypertension (10) Hyperlipidemia: CODE(S): E78.5 - Hyperlipidemia, unspecified QUALIFIERS: Hyperlipidemia type: unspecified Qualified Code(s): E78.5 - Hyperlipidemia, unspecified (11) PVD (peripheral vascular disease): CODE(S): I73.9 - Peripheral vascular disease, unspecified (12) PAD (peripheral artery disease): CODE(S): I73.9 - Peripheral vascular disease, unspecified (13) Venous insufficiency of both lower extremities: CODE(S): I87.2 - Venous insufficiency (chronic) (peripheral) (14) Obesity: CODE(S): E66.9 - Obesity, unspecified QUALIFIERS: Obesity type: due to excess calories Obesity classification: adult class 1 (BMI 30 - 34.9) Serious obesity comorbidity presence: with serious comorbidity Body mass index: BMI 31.0-31.9 Qualified Code(s): E66.811 - Obesity, class 1; E66.09 - Other obesity due to excess calories; Z68.31 - Body mass index [BMI] 31.0-31.9, adult PLAN: Plan Evaluation and debridement performed today in clinic as annotated above. At home wound-care instructions: He will dress his ulcers of his right deluna with hydrogel and gauze daily. The right plantar ulcer will be dressed with promogran. His right 4th toe will be dressed with Aquacel Ag daily. Apply vaseline or other emollient cream to his feet daily to reduce callus formation. Keep dressings dry and intact. He was given a tubigrip compression sock to help treat edema of right ankle. Off-loading: The patient was instructed to avoid pressure and friction on the affected areas. Reposition every 2 hours at minimum. Avoid prolonged standing and/or dangling of legs. When seated, feet should be elevated at chest level. Frequent ambulation is encouraged. Diet: Patient encouraged to increase protein intake while taking caution to avoid high carbohydrate and/or sugar intake and try to achieve A1C if 7.5% or less. Currently 13.2% at last check. Labs/cultures/imaging: Culture of right 4th toe was positive and he was prescribed Linezolid and Metronidazole but has not started these yet. XR of right 4th toe was negative for osteomyelitis. I would plan to repeat XR of his 4th toe in a few weeks to re-evaluate for osteomyelitis. Follow-up: Return in 1 week for wound care follow up. Return sooner or report to the emergency room should symptoms worsen, or new symptoms arise.
--- NOTE | 2025-08-06 09:27 | WC ---
PHOTO-RIGHT SHARP 08/03/25
--- NOTE | 2025-08-06 09:29 | WC ---
PHOTO-RIGHT PLANTAR 08/03/25
--- NOTE | 2025-08-06 09:32 | WC ---
PHOTO-RIGHT 4TH TOE 08/03/25
[2025-08-10 08:19] VITALS: BP 163/97; PULSE 78; RESP 18; TEMP 36.4
--- NOTE | 2025-08-10 10:05 | WC ---
PHOTO-RIGHT SHARP 08/10/25
--- NOTE | 2025-08-10 10:08 | WC ---
PHOTO-RIGHT 4THTOE 08/10/25
--- NOTE | 2025-08-10 15:26 | PN.PCM_ITS ---
History of Present Illness Date of Service: 08/10/25 Chief Complaint: Ulcerations of the right pretibial and lateral calf, right lateral foot History of Wound: David is a 54 year old male that presents to the wound center for evaluation and treatment of an ulcer of his right foot. The ulcer appeared approximately a week ago. He noticed blood coming from his shoe and there was a blister that had broken open. He has been applying gauze and washing with soap daily to treat the ulcer and was seen at urgent care and started on doxycycline. A wound culture was taken and results showed multiple bacteria with Pseudomonas, Staph and Strep. Anaerobic culture is still pending. He denies systemic symptoms such as fever, chills, erythema, odor. He is struggling financially to afford supplies, medications and taking care of his home and financial responsibilities. He works at the [employer] and he is on his feet all the time there. His last A1C was 01/2025 and was 13.2 %. He is a very poorly controlled diabetic on insulin. He does not have diabetic shoes. He does see Dr. Ozuna for podiatry for diabetic foot exams. 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 He also had repeat venous testing 04/08/23 which showed incompetence and vascular surgery was considered but was not done at that time. He has not been able to place compression because he is unable to bend to pull on compression stockings due to arthritis in his back. He is not able to wrap with RADHA bandages either. Circaids were tried previously but he was unable to do this as well. He has been wearing tubigrips for compression. He states he still has issues getting them on at times when his back is flared up. He has chronic lymphedema. Subjective Subjective Kian returns today for treatment of his right deluna ulcer and right plantar ulcer and right 4th toe ulcer. Cultures were positive for MRSA and anaerobic bacteria. He started antibiotics. There is drainage from the 4th toe but the edema and erythema is generally decreased. XR of toe did not show any osteomyelitis currently. He denies any increased pain. He is tolerating dressing changes. He returned to work beginning of July and has not noticed any increased drainage or change in his right plantar foot. He denies increased pain, odor or drainage. Objective Data Objective Data Vital Signs: Vital Signs Temp Pulse Resp BP 97.5 F L 78 18 163/97 H 08/10/25 08:19 08/10/25 08:19 08/10/25 08:19 08/10/25 08:19 Lab / Micro Data Micro: Microbiology 07/27/25 10:00 Wound - Toe Gram Stain - Final 07/27/25 10:00 Wound - Toe Wound Culture - Final Staphylococcus aureus Streptococcus agalactiae (B) Meth. resistant Staph. aureus 07/27/25 10:00 Wound - Toe Anaerobic Culture - Final Anaerobic cocci Physical Exam Const alert, oriented x3 and no apparent distress General Appearance: cooperative, comfortable and well developed Orientation / Consciousness: awake and oriented to person HEENT normocephalic and head/scalp atraumatic Eyes EOMs intact bilaterally Resp normal respiratory effort, normal air movement, no retractions and no use of accessory muscles Effort and Inspection: able to speak in complete sentences Skin Wounds: wounds noted Wound Narrative: Clustered ulcerations are noted on the right pretibial and lateral calf. The ulcerations are full-thickness. Ulcer margins are well beveled. There is no sign of infection or cellulitis. Dimensions are documented elsewhere. Dry eschar and bioburden are noted. Right plantar ulcer at base of the 5th digit has minimal slough and good granulation at base of ulcer. Right 4th toe is still slightly boggy and edematous and ulcer present at nail bed that undermines proximally toward the base of his 4th toe. The ulceration on the left heel appears to be healed and epithelialized. The plantar aspect of left foot is dry and scaly. Neuro Sensorium / Orientation: awake, alert and oriented to person Psych mental status grossly normal, cooperative and affect normal Debridement Note Debridement Note Wound debrided: Right lateral foot Laterality: Right Wound Grade/Stage: Delgado Grade I Type of Debridement: Excisional debridement Anesthesia Used: 5% Lidocaine Gel Depth: Down to and including healthy tissue and in the subcutaneous layer Percentage of wound debrided: 100 Instrument Used: 3mm curette Tissue Removed: yellow slough, devitalized tissue Severity: Fat Layer Exposed Amount of bleeding with debridement: Mild Bleeding Controlled with: Compression and gauze Patient tolerated procedure: Patient tolerated procedure well Post-Debridement Measurements and Additional Note: Post-Debridement Measurements/Treatment WC - Nurse 1 - General Ulcer Assessment Start: 07/27/25 09:17 Freq: Status: Active Protocol: WC.LOWEXT Activity Type Activity Date Activity User E-sign Co-sign Detail Recorded Client Recorded Date Recorded By Document 07/27/25 09:17 RB [id number] 07/27/25 09:20 RB Document 08/03/25 08:15 RB [id number] 08/03/25 08:18 RB Document 08/10/25 08:19 RB [id number] 08/10/25 08:24 RB 07/27/25 08/03/25 08/10/25 09:17 08:15 08:19 - Today's Visit Information Type of service Follow-up Visit Follow-up Visit Follow-up Visit (Physician/HEALTHCARE FACILITY ADMINISTRATOR (Physician/HEALTHCARE FACILITY ADMINISTRATOR (Physician/HEALTHCARE FACILITY ADMINISTRATOR ) ) ) Arrival Mode Ambulatory Ambulatory Ambulatory Transfer Assistance None None None Patient Identification Verified (Name & Yes Yes Yes ) Patient Requires Transmission-Based No No No Precautions Vital Signs Temperature (97.8 F-99.1 F) 96.5 F L 97.3 F L 97.5 F L Temperature Source Temporal Temporal Temporal Pulse Rate (60-100) 61 87 78 Pulse Location Monitor Monitor Monitor Respiratory Rate (12-18) 18 18 18 Respiratory rate source Observation Observation Observation Blood Pressure (90/60-120/80) 154/87 H 180/98 H 163/97 H Blood Pressure Mean (mm Hg) 109 125 119 Source Monitor Monitor Monitor Position Semi-Fowlers Semi-Fowlers Semi-Fowlers Blood Pressure Location Left Arm Left Arm Left Arm History Since Last Visit- (Skip if this is Patient's initial visit) Have you changed medications since your No No No last visit? Any new allergies or adverse reactions No No No Had a fall/change in ADL's that may No No No increase risk of falls Signs or symptoms of abuse and/or No No No neglect since last visit Have you been in the hospital since your No No No last visit? Has dressing in place as prescribed Yes Yes Yes Has compression in place as prescribed N/A N/A Yes Has offloadiing in place as prescribed N/A N/A N/A Experienced any changes in pain level or No No No management Left Footwear Regular Shoe Regular Shoe Regular Shoe Right Footwear Regular Shoe Regular Shoe Regular Shoe Pain Scale: 0-10 Numeric Is Patient Pain Free? Yes Yes Yes [facility] Nurse 1 - General Ulcer Measurement Start: 07/27/25 09:17 Freq: Status: Active Protocol: Activity Type Activity Date Activity User E-sign Co-sign Detail Recorded Client Recorded Date Recorded By Document 07/27/25 09:17 RB [id number] 07/27/25 09:20 RB Document 08/03/25 08:15 RB [id number] 08/03/25 08:18 RB Document 08/10/25 08:19 RB [id number] 08/10/25 08:24 RB 07/27/25 08/03/25 08/10/25 09:17 08:15 08:19 Wound Center Nurse 1 #19 Right 4th toe -Combined with other wound No No -Current Size (cm) - Length 0.3 0.3 -Current Size (cm) - Width 0.7 0.4 -Current Size (cm) - Depth 0.5 0.1 -Total Square Cm 0.21 0.12 -Photo Taken Yes Yes -Tunneling No No -Undermining/Tunneling No No -Circular Undermining No No -Exudate Amt Medium Medium -Exudate Type Serosanguineous Serosanguineous -Wound Margin Distinct, Distinct, Outline Outline Attached Attached -Granulation Amt Medium (34-66%) Medium (34-66%) -Granulation Quality Adair Adair -Slough/Fibrin Yes Yes -Necrosis Amt Medium (34-66%) Medium (34-66%) -Necrotic Tissue Type Adherent Slough Adherent Slough -Structure Exposed N/A N/A -Texture (Milly-wound Skin Appearance) Assessed, Assessed, Excoriation Scarring -Moisture (Milly-wound Skin Appearance) Assessed Assessed -Color (Milly-wound Skin Appearance) Assessed Assessed -Temperature (Milly-wound Skin No Abnormality No Abnormality Appearance) (Pt Warm) (Pt Warm) -Tenderness on Palpation (Milly-wound No No Skin Appearance) -Ulcer Cleansing Wound Cleanser Wound Cleanser -Foul Odor after Cleansing No No -Anesthetic Used 5% Lidocaine 5% Lidocaine Gel Gel 16. RLE deluna cluster -Combined with other wound No No No -Current Size (cm) - Length 0.1 0.1 0.1 -Current Size (cm) - Width 0.1 0.1 0.1 -Current Size (cm) - Depth 0.1 0.1 0.1 -Total Square Cm 0.01 0.01 0.01 -Photo Taken Yes Yes Yes -Tunneling No No No -Undermining/Tunneling No No No -Circular Undermining No No No -Exudate Amt Small Medium None Present -Exudate Type Serous Serosanguineous -Wound Margin Distinct, Distinct, Distinct, Outline Outline Outline Attached Attached Attached -Granulation Amt Medium (34-66%) Medium (34-66%) Medium (34-66%) -Granulation Quality Adair Adair Adair -Slough/Fibrin Yes Yes Yes -Necrosis Amt Large (67-100%) Medium (34-66%) Medium (34-66%) -Necrotic Tissue Type Adherent Slough Adherent Slough Adherent Slough -Structure Exposed N/A N/A N/A -Texture (Milly-wound Skin Appearance) Assessed Assessed Assessed -Moisture (Milly-wound Skin Appearance) Assessed,Dry/ Assessed No Abnormality Scaly -Color (Milly-wound Skin Appearance) Assessed Assessed Assessed -Temperature (Milly-wound Skin No Abnormality No Abnormality No Abnormality Appearance) (Pt Warm) (Pt Warm) (Pt Warm) -Tenderness on Palpation (Milly-wound No No No Skin Appearance) -Ulcer Cleansing Wound Cleanser Wound Cleanser Wound Cleanser -Foul Odor after Cleansing No No No -Anesthetic Used 5% Lidocaine 5% Lidocaine 5% Lidocaine Gel Gel Gel 15. R plantar -Combined with other wound No No No -Current Size (cm) - Length 1.2 0.7 0.3 -Current Size (cm) - Width 1.4 0.9 0.5 -Current Size (cm) - Depth 0.1 0.1 0.1 -Total Square Cm 1.68 0.63 0.15 -Photo Taken Yes Yes Yes -Tunneling No No No -Undermining/Tunneling No No No -Circular Undermining No No No -Exudate Amt Medium Medium Medium -Exudate Type Serosanguineous Serosanguineous Serosanguineous -Wound Margin Distinct, Distinct, Distinct, Outline Outline Outline Attached Attached Attached -Granulation Amt Medium (34-66%) Medium (34-66%) Medium (34-66%) -Granulation Quality Adair Adair Adair -Slough/Fibrin Yes Yes Yes -Necrosis Amt Small (1-33%) Medium (34-66%) Medium (34-66%) -Necrotic Tissue Type Adherent Slough Adherent Slough Adherent Slough -Structure Exposed N/A N/A N/A -Texture (Milly-wound Skin Appearance) Callus Assessed,Callus Assessed -Moisture (Milly-wound Skin Appearance) Assessed Assessed Assessed -Color (Milly-wound Skin Appearance) Assessed Assessed Assessed -Temperature (Milly-wound Skin No Abnormality No Abnormality No Abnormality Appearance) (Pt Warm) (Pt Warm) (Pt Warm) -Tenderness on Palpation (Milly-wound No No No Skin Appearance) -Ulcer Cleansing Wound Cleanser Wound Cleanser Wound Cleanser -Foul Odor after Cleansing No No No -Anesthetic Used 5% Lidocaine 5% Lidocaine 5% Lidocaine Gel Gel Gel Lower Limb Edema Present Yes Yes Yes Right Calf (cm) 41 40.1 35.4 Right Ankle (cm) 23.1 24 21.7 WC - Nurse 2 - General Ulcer CM Notes Start: 07/27/25 09:17 Freq: Status: Active Protocol: Activity Type Activity Date Activity User E-sign Co-sign Detail Recorded Client Recorded Date Recorded By Document 07/27/25 09:53 [id number] 07/27/25 10:01 Document 08/03/25 08:27 [id number] 08/03/25 08:41 Document 08/10/25 09:08 [id number] 08/10/25 09:23 07/27/25 08/03/25 08/10/25 09:53 08:27 09:08 Wound Center Nurse 2 #19 Right 4th toe -Time 09:56 08:29 09:09 -Correct Patient Yes Yes Yes -Correct Side, Site, Position Yes Yes Yes -Correct Procedure Yes Yes Yes -Procedure Performed Yes Yes Yes -Type of Procedure Debridement Debridement Debridement -Clinical Debridement Subcutaneous Subcutaneous Subcutaneous -Tissue Removed Subcutaneous Subcutaneous Subcutaneous -Post Debridement (cm) - Length 0.5 0.2 0.1 -Post Debridement (cm) - Width 1.0 1.0 0.7 -Post Debridement (cm) - Depth 0.2 0.3 0.4 -Total Square (Post) (cm) 0.50 0.20 0.07 -Area of Debridement (cm) - Length 0.5 0.2 0.1 -Area of Debridement (cm) - Width 1.0 1.0 0.7 -Total Square (Area) (cm) 0.50 0.20 0.07 -Tunneling No No Yes -Tunneling Position (O'clock) 6 -Tunneling Distance (cm) 0.4 -Undermining/Tunneling No No No -Circular Undermining No No No -Wound/Ulcer Outcome Not Healed Not Healed Not Healed -Ulcer Cleansing Rinsed/ Rinsed/ Rinsed/ Irrigated with Irrigated with Irrigated with Saline Saline Saline -Foul Odor after Cleansing No No No -Bioengineered Tissue No No No -Bleeding Controlled with Pressure Pressure Pressure -Treatment Response Procedure Procedure Procedure Tolerated Well Tolerated Well Tolerated Well -Offloading No No -Debridement - Subq, 1st 20sq cm No No No 16. RLE deluna cluster -Time 09:54 08:30 09:09 -Correct Patient Yes Yes Yes -Correct Side, Site, Position Yes Yes Yes -Correct Procedure Yes Yes No -Procedure Performed Yes Yes No -Type of Procedure Debridement Debridement -Clinical Debridement Subcutaneous Subcutaneous -Tissue Removed Subcutaneous Subcutaneous -Post Debridement (cm) - Length 0.4 0.3 -Post Debridement (cm) - Width 0.5 0.2 -Post Debridement (cm) - Depth 0.1 0.1 -Total Square (Post) (cm) 0.20 0.06 -Area of Debridement (cm) - Length 0.4 0.3 -Area of Debridement (cm) - Width 0.5 0.2 -Total Square (Area) (cm) 0.20 0.06 -Tunneling No No No -Undermining/Tunneling No No No -Circular Undermining No No No -Wound/Ulcer Outcome Not Healed Not Healed Healed- Epithelialized -Ulcer Cleansing Rinsed/ Rinsed/ Irrigated with Irrigated with Saline Saline -Foul Odor after Cleansing No No No -Bioengineered Tissue No No No -Bleeding Controlled with Pressure Pressure -Treatment Response Procedure Procedure Tolerated Well Tolerated Well -Offloading No No No -Debridement - Subq, 1st 20sq cm No No 15. R plantar -Time 09:55 08:30 09:09 -Correct Patient Yes Yes Yes -Correct Side, Site, Position Yes Yes Yes -Correct Procedure Yes Yes Yes -Procedure Performed Yes Yes Yes -Type of Procedure Debridement Debridement Debridement -Clinical Debridement Subcutaneous Subcutaneous Subcutaneous -Tissue Removed Subcutaneous Subcutaneous Subcutaneous -Post Debridement (cm) - Length 1.1 0.9 1.0 -Post Debridement (cm) - Width 1.0 1.0 1.0 -Post Debridement (cm) - Depth 0.1 0.1 0.1 -Total Square (Post) (cm) 1.10 0.90 1.00 -Area of Debridement (cm) - Length 1.1 0.9 1.0 -Area of Debridement (cm) - Width 1.0 1.0 1.0 -Total Square (Area) (cm) 1.10 0.90 1.00 -Tunneling No No No -Undermining/Tunneling No No No -Circular Undermining No No No -Wound/Ulcer Outcome Not Healed Not Healed Not Healed -Ulcer Cleansing Rinsed/ Rinsed/ Rinsed/ Irrigated with Irrigated with Irrigated with Saline Saline Saline -Foul Odor after Cleansing No No No -Bioengineered Tissue No No No -Bleeding Controlled with Pressure Pressure Pressure -Treatment Response Procedure Procedure Procedure Tolerated Well Tolerated Well Tolerated Well -Offloading No No No -Debridement - Subq, 1st 20sq cm Yes Yes Yes Pain Scale: 0-10 Numeric Is Patient Pain Free? Yes Yes Yes WC - Nurse 3 - General Ulcer D/C NN Start: 07/27/25 09:17 Freq: Status: Active Protocol: Activity Type Activity Date Activity User E-sign Co-sign Detail Recorded Client Recorded Date Recorded By Document 07/27/25 10:29 ML [id number] 07/27/25 10:31 ML Document 08/03/25 09:01 RB [id number] 08/03/25 09:03 RB Document 08/10/25 09:59 RB [id number] 08/10/25 10:00 RB 07/27/25 08/03/25 08/10/25 10:29 09:01 09:59 Wound Care Center Nurse 3 #19 Right 4th toe -Ulcer Cleansing Rinsed/ Rinsed/ Rinsed/ Irrigated with Irrigated with Irrigated with Saline Saline Saline -Primary Dressing Applied Aquacel Extra Aquacel Extra Aquacel AG 2x2 -Primary Dressing Covered/Secured with Dry Gauze, Dry Gauze & Dry Gauze,Dry Secured with Roll Gauze, Gauze & Roll Tape Secured with Gauze,Secured Tape with Tape -Aquacel Extra 1 1 -Aquacel AG 2x2 1 16. RLE deluna cluster -Ulcer Cleansing Rinsed/ Rinsed/ Irrigated with Irrigated with Saline Saline -Primary Dressing Applied C Hydrogel C Hydrogel -Other Dressing hydrogel -Primary Dressing Covered/Secured with Dry Gauze & Dry Gauze & Dry Gauze, Roll Gauze, Roll Gauze, Secured with Secured with Secured with Tape Tape Tape -Hydrogel 0 1 15. R plantar -Ulcer Cleansing Rinsed/ Rinsed/ Wound Cleanser Irrigated with Irrigated with Saline Saline -Primary Dressing Applied Promogran Promogran Promogran -Primary Dressing Covered/Secured with Dry Gauze & Dry Gauze,Dry Dry Gauze & Roll Gauze, Gauze & Roll Roll Gauze, Secured with Gauze,Secured Secured with Tape with Tape Tape -Promogran 1 1 1 RLE -Tubular Bandage Single Layer Single Layer -Size of Tubigrip Used Size F Size E -Size E ($) 1 -Size F ($) 1 Treatment Response Procedure Procedure Tolerated Well Tolerated Well Pain Scale: 0-10 Numeric Is Patient Pain Free? Yes Yes Yes WC - Visit Discharge Discharge Condition Stable Stable Ambulatory Status Ambulatory Ambulatory Transportation Private Auto Private Auto Medication Reconcilliation completed & No No provided to patient/care provider Clinical Summary of Care Provided Yes Yes Additional Wound Wound debrided: Right pretibial and lateral calf clustered ulcerations Laterality: Right Type of Debridement: Excisional debridement Anesthesia Used: 5% Lidocaine Gel Depth: Down to and including healthy tissue and in the subcutaneous layer Percentage of wound debrided: 100 Instrument Used: 3mm curette Tissue Removed: yellow slough, devitalized tissue Severity: Fat Layer Exposed Amount of bleeding with debridement: Mild Bleeding Controlled with: Compression and gauze Patient tolerated procedure: Patient tolerated procedure well Additional Wound Wound debrided: right 4th toe Laterality: Right Wound Grade/Stage: Grade 1 Type of Debridement: Excisional debridement Anesthesia Used: 4% Lidocaine Solution Depth: Down to and including healthy tissue and in the subcutaneous layer Percentage of wound debrided: 100 Instrument Used: 3mm curette Tissue Removed: devitalized tissue Severity: Fat Layer Exposed Amount of bleeding with debridement: Mild Bleeding Controlled with: Compression and gauze Patient tolerated procedure: Patient tolerated procedure well Assessment/Plan Assessment/Plan (1) Decubitus ulcer of right foot: CODE(S): L89.899 - Pressure ulcer of other site, unspecified stage QUALIFIERS: Pressure injury stage: stage 2 Qualified Code(s): L89.892 - Pressure ulcer of other site, stage 2 (2) Diabetic ulcer of right foot associated with diabetes mellitus due to underlying condition, with fat layer exposed: CODE(S): E08.621 - Diabetes mellitus due to underlying condition with foot ulcer; L97.512 - Non-pressure chronic ulcer of other part of right foot with fat layer exposed QUALIFIERS: Diabetic foot ulcer location: midfoot Qualified Code(s): E08.621 - Diabetes mellitus due to underlying condition with foot ulcer; L97.412 - Non-pressure chronic ulcer of right heel and midfoot with fat layer exposed (3) Ulcer of right deluna with fat layer exposed: CODE(S): L97.812 - Non-pressure chronic ulcer of other part of right lower leg with fat layer exposed (4) Diabetic foot ulcer associated with type 2 diabetes mellitus, with fat layer exposed: CODE(S): E11.621 - Type 2 diabetes mellitus with foot ulcer; L97.502 - Non-pressure chronic ulcer of other part of unspecified foot with fat layer exposed QUALIFIERS: Diabetic foot ulcer location: midfoot Laterality: left Qualified Code(s): E11.621 - Type 2 diabetes mellitus with foot ulcer; L97.422 - Non-pressure chronic ulcer of left heel and midfoot with fat layer ex posed (5) Diabetes: CODE(S): E11.9 - Type 2 diabetes mellitus without complications QUALIFIERS: Diabetes mellitus complication status: with hyperglycemia Diabetes mellitus senior care insulin use: with terminal gauger supervisor use Diabetes mellitus type: type 2 Qualified Code(s): E11.65 - Type 2 diabetes mellitus with hyperglycemia; Z79.4 - prison (current) use of insulin (6) Uncontrolled diabetes mellitus: QUALIFIERS: Diabetes mellitus type: type 2 Glycemic state: with hyperglycemia Qualified Code(s): E11.65 - Type 2 diabetes mellitus with hyperglycemia (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: CODE(S): E11.49 - Type 2 diabetes mellitus with other diabetic neurological complication (8) Insulin dependent diabetes mellitus: (9) HTN (hypertension): CODE(S): I10 - Essential (primary) hypertension QUALIFIERS: Hypertension type: primary hypertension Qualified Code(s): I10 - Essential (primary) hypertension (10) Hyperlipidemia: CODE(S): E78.5 - Hyperlipidemia, unspecified QUALIFIERS: Hyperlipidemia type: unspecified Qualified Code(s): E78.5 - Hyperlipidemia, unspecified (11) PVD (peripheral vascular disease): CODE(S): I73.9 - Peripheral vascular disease, unspecified (12) PAD (peripheral artery disease): CODE(S): I73.9 - Peripheral vascular disease, unspecified (13) Venous insufficiency of both lower extremities: CODE(S): I87.2 - Venous insufficiency (chronic) (peripheral) (14) Obesity: CODE(S): E66.9 - Obesity, unspecified QUALIFIERS: Body mass index: BMI 31.0-31.9 Obesity classification: adult class 1 (BMI 30 - 34.9) Obesity type: due to excess calories Serious obesity comorbidity presence: with serious comorbidity Qualified Code(s): E66.811 - Obesity, class 1; E66.09 - Other obesity due to excess calories; Z68.31 - Body mass index [BMI] 31.0-31.9, adult PLAN: Plan Evaluation and debridement performed today in clinic as annotated above. At home wound-care instructions: He will dress his ulcers of his right deluna with hydrogel and gauze daily. The right plantar ulcer will be dressed with Promogran. His right 4th toe will be dressed with Aquacel Ag daily. Apply vaseline or other emollient cream to his feet daily to reduce callus formation. Keep dressings dry and intact. He was given a tubigrip compression sock to help treat edema of right ankle. Off-loading: The patient was instructed to avoid pressure and friction on the affected areas. Reposition every 2 hours at minimum. Avoid prolonged standing and/or dangling of legs. When seated, feet should be elevated at chest level. Frequent ambulation is encouraged. Diet: Patient encouraged to increase protein intake while taking caution to avoid high carbohydrate and/or sugar intake and try to achieve A1C if 7.5% or less. Currently 13.2% at last check. Labs/cultures/imaging: Culture of right 4th toe was positive and he was prescribed Linezolid and Metronidazole but has not started these yet. XR of right 4th toe done on 07/27/25 was negative for osteomyelitis. I would plan to repeat XR of his 4th toe in a few weeks to re-evaluate for osteomyelitis. Follow-up: Return in 1 week for wound care follow up. Return sooner or report to the emergency room should symptoms worsen, or new symptoms arise.
[2025-08-17 08:19] VITALS: BP 153/93; PULSE 105; RESP 18; TEMP 35.6
--- NOTE | 2025-08-17 09:50 | RAD_ITS ---
PROCEDURE: TOE(S) MIN 2 VIEWS 08/17/2025 REASON FOR EXAM: R/O OSTEOMYELITIS TECHNIQUE: Procedure Code: RADTO Modality: DX Procedure: TOE(S) MIN 2 VIEWS Laterality: Right COMPARISON: Right toe studies dated 07/27/2025. Right foot study dated 05/08/2025 FINDINGS: No visible fracture. Diffuse osteopenia of the middle and distal phalanges 4th digit are noted. Soft tissue swelling of this digit is noted. There does appear to be periosteal reaction. Osteomyelitis can not be excluded. Degenerative arthritic changes are seen involving the tarsometatarsal joints with sclerosis and deformity suggestive of Charcot's deformity. Very mild degenerative osteoarthritic changes are seen involving the joints of each digit. RAD/Toe(s) Min 2 Views IMPRESSION: Diffuse osteopenia of the middle and distal phalanges 4th digit are noted. Sof t tissue swelling of this digit is noted. Osteomyelitis can not be excluded. Degenerative arthritic changes are seen involving the tarsometatarsal joints wi th sclerosis and deformity suggestive of Charcot's deformity. RECOMMENDATION: MRI may be of value to exclude osteomyelitis of the 4th digit. Reading Location: [id number]
--- NOTE | 2025-08-17 09:50 | RAD_ITS ---
PROCEDURE: FOOT MIN 3 VIEWS 08/17/2025 REASON FOR EXAM: R/O OSTEOMYELITIS TECHNIQUE: Procedure Code: RADFO Modality: DX Procedure: FOOT MIN 3 VIEWS Laterality: Right COMPARISON: Right foot study dated 05/08/2025 FINDINGS: Bones: Diffuse osteopenia of the osseous structures is noted with the exception of the tarsal bones and proximal aspects of the metatarsal bones. This is a similar finding when compared to the prior exam. There is significant osteopenia of the middle and distal phalanxes, 4th digit, right foot. There does appear to be periosteal reaction involving the middle and distal phalanx is 4th digit. Osteomyelitis can not be excluded. A spur is seen off the plantar surface of the calcaneus. Joints: Degenerative osteoarthritic changes of the proximal to distal tarsal joints as well as the tarsometatarsal joints are noted. There is sclerosis and deformity suggestive of Charcot's deformity. This is similar when compared to the prior foot study. There is deformity of the base of the 5th metatarsal suggestive of an old fracture. Soft tissues: Soft tissue swelling of the 4th digit is noted. RAD/Foot min 3 Views IMPRESSION: Extreme osteopenia of the middle and distal phalanges 4th digit are noted. The re appears to be periosteal reaction involving the middle and distal phalanxes 4th digit. Soft tissue swelling is noted. Osteomy elitis can not be excluded. The tarsal and proximal metatarsal changes are worrisome for Charcot's deformit y. RECOMMENDATION: MRI examination of the right foot is recommended to further alcides luate the abnormal plain film findings and possible osteomyelitis, if clinically indicated. Reading Location: [id number]
--- NOTE | 2025-08-17 11:17 | PN.PCM_ITS ---
History of Present Illness Date of Service: 08/17/25 Chief Complaint: Ulcerations of the right pretibial and lateral calf, right lateral foot History of Wound: David is a 54 year old male that presents to the wound center for evaluation and treatment of an ulcer of his right foot. The ulcer appeared approximately a week ago. He noticed blood coming from his shoe and there was a blister that had broken open. He has been applying gauze and washing with soap daily to treat the ulcer and was seen at urgent care and started on doxycycline. A wound culture was taken and results showed multiple bacteria with Pseudomonas, Staph and Strep. Anaerobic culture is still pending. He denies systemic symptoms such as fever, chills, erythema, odor. He is struggling financially to afford supplies, medications and taking care of his home and financial responsibilities. 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 His last A1C was 01/2025 and was 13.2 %. He is a very poorly controlled diabetic on insulin. He does not have diabetic shoes. He does see Dr. Ozuna for podiatry for diabetic foot exams. 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 He also had repeat venous testing 04/08/23 which showed incompetence and vascular surgery was considered but was not done at that time. He has not been able to place compression because he is unable to bend to pull on compression stockings due to arthritis in his back. He is not able to wrap with RADHA bandages either. Circaids were tried previously but he was unable to do this as well. He has been wearing tubigrips for compression. He states he still has issues getting them on at times when his back is flared up. He has chronic lymphedema. Subjective Subjective Kian returns today for treatment of his right deluna ulcer and right plantar ulcer and right 4th toe ulcer. Cultures were positive for MRSA and anaerobic bacteria. He finished Linezolid and has 2 days left of Flagyl. There is small amount of drainage from the 4th toe but the edema and erythema is decreased. Plantar foot is slightly larger. XR of toe did not show any osteomyelitis from 07/27/25. He denies any increased pain. He is tolerating dressing changes. He returned to work beginning of July and has not noticed any increased drainage or change in his right plantar foot. He denies increased pain, odor or drainage. Objective Data Objective Data Vital Signs: Vital Signs Temp Pulse Resp BP O2 Del Method 96.0 F L 105 H 18 153/93 H Room Air 08/17/25 08:19 08/17/25 08:19 08/17/25 08:19 08/17/25 08:19 08/17/25 08:19 Oxygen Delivery Method Room Air Lab / Micro Data Micro: Microbiology 07/27/25 10:00 Wound - Toe Gram Stain - Final 07/27/25 10:00 Wound - Toe Wound Culture - Final Staphylococcus aureus Streptococcus agalactiae (B) Meth. resistant Staph. aureus 07/27/25 10:00 Wound - Toe Anaerobic Culture - Final Anaerobic cocci Physical Exam Const alert, oriented x3 and no apparent distress General Appearance: cooperative, comfortable and well developed Orientation / Consciousness: awake and oriented to person HEENT normocephalic and head/scalp atraumatic Eyes EOMs intact bilaterally Resp normal respiratory effort, normal air movement, no retractions and no use of accessory muscles Effort and Inspection: able to speak in complete sentences Skin Wounds: wounds noted Wound Narrative: Clustered ulcerations are noted on the right pretibial and lateral calf. The ulcerations are full-thickness. Ulcer margins are well beveled. There is no sign of infection or cellulitis. Dimensions are documented elsewhere. Dry eschar and bioburden are noted. Right plantar ulcer at base of the 5th digit has minimal slough and good granulation at base of ulcer. Right 4th toe is still slightly boggy and edematous and ulcer present at nail bed that undermines proximally toward the base of his 4th toe. The ulceration on the left heel appears to be healed and epithelialized. The plantar aspect of left foot is dry and scaly. Neuro Sensorium / Orientation: awake, alert and oriented to person Psych mental status grossly normal, cooperative and affect normal Debridement Note Debridement Note Wound debrided: Right lateral foot Laterality: Right Wound Grade/Stage: Delgado Grade I Type of Debridement: Excisional debridement Anesthesia Used: 5% Lidocaine Gel Depth: Down to and including healthy tissue and in the subcutaneous layer Percentage of wound debrided: 100 Instrument Used: 3mm curette Tissue Removed: yellow slough, devitalized tissue Severity: Fat Layer Exposed Amount of bleeding with debridement: Mild Bleeding Controlled with: Compression and gauze Patient tolerated procedure: Patient tolerated procedure well Post-Debridement Measurements and Additional Note: Post-Debridement Measurements/Treatment - Nurse 1 - General Ulcer Assessment Start: 07/27/25 09:17 Freq: Status: Active Protocol: MART Activity Type Activity Date Activity User E-sign Co-sign Detail Recorded Client Recorded Date Recorded By Document 07/27/25 09:17 RB [id number] 07/27/25 09:20 RB Document 08/03/25 08:15 RB [id number] 08/03/25 08:18 RB Document 08/10/25 08:19 RB [id number] 08/10/25 08:24 RB Document 08/17/25 08:19 DS [id number] 08/17/25 08:32 DS 07/27/25 08/03/25 08/10/25 09:17 08:15 08:19 - Today's Visit Information Type of service Follow-up Visit Follow-up Visit Follow-up Visit (Physician/VICE PRESIDENT BIOSTATISTICS (Physician/VICE PRESIDENT BIOSTATISTICS (Physician/VICE PRESIDENT BIOSTATISTICS ) ) ) Arrival Mode Ambulatory Ambulatory Ambulatory Transfer Assistance None None None Patient Identification Verified (Name & Yes Yes Yes ) Patient Requires Transmission-Based No No No Precautions Safety Precautions Vital Signs Temperature (97.8 F-99.1 F) 96.5 F L 97.3 F L 97.5 F L Temperature Source Temporal Temporal Temporal Pulse Rate (60-100) 61 87 78 Pulse Location Monitor Monitor Monitor Respiratory Rate (12-18) 18 18 18 Respiratory rate source Observation Observation Observation Oxygen Delivery Method Blood Pressure (90/60-120/80) 154/87 H 180/98 H 163/97 H Blood Pressure Mean (mm Hg) 109 125 119 Source Monitor Monitor Monitor Position Semi-Fowlers Semi-Fowlers Semi-Fowlers Blood Pressure Location Left Arm Left Arm Left Arm History Since Last Visit- (Skip if this is Patient's initial visit) Have you changed medications since your No No No last visit? Any new allergies or adverse reactions No No No Had a fall/change in ADL's that may No No No increase risk of falls Signs or symptoms of abuse and/or No No No neglect since last visit Have you been in the hospital since your No No No last visit? Has dressing in place as prescribed Yes Yes Yes Has compression in place as prescribed N/A N/A Yes Has offloadiing in place as prescribed N/A N/A N/A Experienced any changes in pain level or No No No management Left Footwear Regular Shoe Regular Shoe Regular Shoe Right Footwear Regular Shoe Regular Shoe Regular Shoe Pain Scale: 0-10 Numeric Is Patient Pain Free? Yes Yes Yes 08/17/25 08:19 WC - Today's Visit Information Type of service Follow-up Visit (Physician/VICE PRESIDENT BIOSTATISTICS ) Arrival Mode Ambulatory Transfer Assistance Patient Identification Verified (Name & Yes ) Patient Requires Transmission-Based Precautions Safety Precautions NA,Fall Prevention Vital Signs Temperature (97.8 F-99.1 F) 96.0 F L Temperature Source Temporal Pulse Rate (60-100) 105 H Pulse Location Monitor Respiratory Rate (12-18) 18 Respiratory rate source Observation Oxygen Delivery Method Room Air Blood Pressure (90/60-120/80) 153/93 H Blood Pressure Mean (mm Hg) 113 Source Monitor Position Sitting Blood Pressure Location Left Arm History Since Last Visit- (Skip if this is Patient's initial visit) Have you changed medications since your No last visit? Any new allergies or adverse reactions No Had a fall/change in ADL's that may No increase risk of falls Signs or symptoms of abuse and/or No neglect since last visit Have you been in the hospital since your No last visit? Has dressing in place as prescribed Yes Has compression in place as prescribed Yes Has offloadiing in place as prescribed N/A Experienced any changes in pain level or No management Left Footwear Regular Shoe Right Footwear Regular Shoe Pain Scale: 0-10 Numeric Is Patient Pain Free? Yes - Nurse 1 - General Ulcer Measurement Start: 07/27/25 09:17 Freq: Status: Active Protocol: Activity Type Activity Date Activity User E-sign Co-sign Detail Recorded Client Recorded Date Recorded By Document 07/27/25 09:17 RB [id number] 07/27/25 09:20 RB Document 08/03/25 08:15 RB [id number] 08/03/25 08:18 RB Document 08/10/25 08:19 RB [id number] 08/10/25 08:24 RB Document 08/17/25 08:19 DS [id number] 08/17/25 08:32 DS 07/27/25 08/03/25 08/10/25 09:17 08:15 08:19 Wound Center Nurse 1 #19 Right 4th toe -Combined with other wound No No -Current Size (cm) - Length 0.3 0.3 -Current Size (cm) - Width 0.7 0.4 -Current Size (cm) - Depth 0.5 0.1 -Total Square Cm 0.21 0.12 -Date of Last Picture (Recall this field) -Photo Taken Yes Yes -Tunneling No No -Undermining/Tunneling No No -Circular Undermining No No -Exudate Amt Medium Medium -Exudate Type Serosanguineous Serosanguineous -Wound Margin Distinct, Distinct, Outline Outline Attached Attached -Granulation Amt Medium (34-66%) Medium (34-66%) -Granulation Quality [place] -Slough/Fibrin Yes Yes -Necrosis Amt Medium (34-66%) Medium (34-66%) -Necrotic Tissue Type Adherent Slough Adherent Slough -Structure Exposed N/A N/A -Texture (Milly-wound Skin Appearance) Assessed, Assessed, Excoriation Scarring -Moisture (Milly-wound Skin Appearance) Assessed Assessed -Color (Milly-wound Skin Appearance) Assessed Assessed -Temperature (Milly-wound Skin No Abnormality No Abnormality Appearance) (Pt Warm) (Pt Warm) -Tenderness on Palpation (Milly-wound No No Skin Appearance) -Ulcer Cleansing Wound Cleanser Wound Cleanser -Foul Odor after Cleansing No No -Anesthetic Used 5% Lidocaine 5% Lidocaine Gel Gel 16. RLE deluna cluster -Combined with other wound No No No -Current Size (cm) - Length 0.1 0.1 0.1 -Current Size (cm) - Width 0.1 0.1 0.1 -Current Size (cm) - Depth 0.1 0.1 0.1 -Total Square Cm 0.01 0.01 0.01 -Date of Last Picture (Recall this field) -Photo Taken Yes Yes Yes -Tunneling No No No -Undermining/Tunneling No No No -Circular Undermining No No No -Exudate Amt Small Medium None Present -Exudate Type Serous Serosanguineous -Wound Margin Distinct, Distinct, Distinct, Outline Outline Outline Attached Attached Attached -Granulation Amt Medium (34-66%) Medium (34-66%) Medium (34-66%) -Granulation Quality [place] -Slough/Fibrin Yes Yes Yes -Necrosis Amt Large (67-100%) Medium (34-66%) Medium (34-66%) -Necrotic Tissue Type Adherent Slough Adherent Slough Adherent Slough -Structure Exposed N/A N/A N/A -Texture (Milly-wound Skin Appearance) Assessed Assessed Assessed -Moisture (Milly-wound Skin Appearance) Assessed,Dry/ Assessed No Abnormality Scaly -Color (Milly-wound Skin Appearance) Assessed Assessed Assessed -Temperature (Milly-wound Skin No Abnormality No Abnormality No Abnormality Appearance) (Pt Warm) (Pt Warm) (Pt Warm) -Tenderness on Palpation (Milly-wound No No No Skin Appearance) -Ulcer Cleansing Wound Cleanser Wound Cleanser Wound Cleanser -Foul Odor after Cleansing No No No -Anesthetic Used 5% Lidocaine 5% Lidocaine 5% Lidocaine Gel Gel Gel 15. R plantar -Combined with other wound No No No -Current Size (cm) - Length 1.2 0.7 0.3 -Current Size (cm) - Width 1.4 0.9 0.5 -Current Size (cm) - Depth 0.1 0.1 0.1 -Total Square Cm 1.68 0.63 0.15 -Date of Last Picture (Recall this field) -Photo Taken Yes Yes Yes -Tunneling No No No -Undermining/Tunneling No No No -Circular Undermining No No No -Exudate Amt Medium Medium Medium -Exudate Type Serosanguineous Serosanguineous Serosanguineous -Wound Margin Distinct, Distinct, Distinct, Outline Outline Outline Attached Attached Attached -Granulation Amt Medium (34-66%) Medium (34-66%) Medium (34-66%) -Granulation Quality [place] -Slough/Fibrin Yes Yes Yes -Necrosis Amt Small (1-33%) Medium (34-66%) Medium (34-66%) -Necrotic Tissue Type Adherent Slough Adherent Slough Adherent Slough -Structure Exposed N/A N/A N/A -Texture (Milly-wound Skin Appearance) Callus Assessed,Callus Assessed -Moisture (Milly-wound Skin Appearance) Assessed Assessed Assessed -Color (Milly-wound Skin Appearance) Assessed Assessed Assessed -Temperature (Milly-wound Skin No Abnormality No Abnormality No Abnormality Appearance) (Pt Warm) (Pt Warm) (Pt Warm) -Tenderness on Palpation (Milly-wound No No No Skin Appearance) -Ulcer Cleansing Wound Cleanser Wound Cleanser Wound Cleanser -Foul Odor after Cleansing No No No -Anesthetic Used 5% Lidocaine 5% Lidocaine 5% Lidocaine Gel Gel Gel Lower Limb Edema Present Yes Yes Yes Right Calf (cm) 41 40.1 35.4 Right Ankle (cm) 23.1 24 21.7 08/17/25 08:19 Wound Center Nurse 1 #19 Right 4th toe -Combined with other wound -Current Size (cm) - Length 0.1 -Current Size (cm) - Width 0.1 -Current Size (cm) - Depth 0.1 -Total Square Cm 0.01 -Date of Last Picture (Recall this 08/17/25 field) -Photo Taken Yes -Tunneling No -Undermining/Tunneling No -Circular Undermining No -Exudate Amt None Present -Exudate Type -Wound Margin Distinct, Outline Attached -Granulation Amt -Granulation Quality -Slough/Fibrin -Necrosis Amt -Necrotic Tissue Type -Structure Exposed -Texture (Milly-wound Skin Appearance) Assessed -Moisture (Milly-wound Skin Appearance) Assessed -Color (Milly-wound Skin Appearance) Assessed -Temperature (Milly-wound Skin No Abnormality Appearance) (Pt Warm) -Tenderness on Palpation (Milly-wound No Skin Appearance) -Ulcer Cleansing Soap and Water -Foul Odor after Cleansing No -Anesthetic Used 5% Lidocaine Gel 16. RLE deluna cluster -Combined with other wound -Current Size (cm) - Length 0.8 -Current Size (cm) - Width 1.5 -Current Size (cm) - Depth 0.1 -Total Square Cm 1.20 -Date of Last Picture (Recall this 08/17/25 field) -Photo Taken Yes -Tunneling No -Undermining/Tunneling No -Circular Undermining No -Exudate Amt None Present -Exudate Type -Wound Margin Distinct, Outline Attached -Granulation Amt Large (67-100%) -Granulation Quality [place] -Slough/Fibrin -Necrosis Amt -Necrotic Tissue Type -Structure Exposed -Texture (Milly-wound Skin Appearance) Assessed -Moisture (Milly-wound Skin Appearance) Assessed -Color (Milly-wound Skin Appearance) Assessed -Temperature (Milly-wound Skin No Abnormality Appearance) (Pt Warm) -Tenderness on Palpation (Milly-wound No Skin Appearance) -Ulcer Cleansing Soap and Water -Foul Odor after Cleansing No -Anesthetic Used 5% Lidocaine Gel 15. R plantar -Combined with other wound -Current Size (cm) - Length 0.7 -Current Size (cm) - Width 0.9 -Current Size (cm) - Depth 0.1 -Total Square Cm 0.63 -Date of Last Picture (Recall this 08/17/25 field) -Photo Taken Yes -Tunneling No -Undermining/Tunneling No -Circular Undermining No -Exudate Amt Small -Exudate Type Serosanguineous -Wound Margin Distinct, Outline Attached -Granulation Amt Large (67-100%) -Granulation Quality [place] -Slough/Fibrin -Necrosis Amt -Necrotic Tissue Type -Structure Exposed -Texture (Milly-wound Skin Appearance) Assessed,Callus -Moisture (Milly-wound Skin Appearance) Assessed -Color (Milly-wound Skin Appearance) Assessed -Temperature (Milly-wound Skin No Abnormality Appearance) (Pt Warm) -Tenderness on Palpation (Milly-wound Skin Appearance) -Ulcer Cleansing Soap and Water -Foul Odor after Cleansing No -Anesthetic Used 5% Lidocaine Gel Lower Limb Edema Present No Right Calf (cm) 36.0 Right Ankle (cm) 21.5 WC - Nurse 2 - General Ulcer CM Notes Start: 07/27/25 09:17 Freq: Status: Active Protocol: Activity Type Activity Date Activity User E-sign Co-sign Detail Recorded Client Recorded Date Recorded By Document 07/27/25 09:53 [id number] 07/27/25 10:01 Document 08/03/25 08:27 [id number] 08/03/25 08:41 Document 08/10/25 09:08 [id number] 08/10/25 09:23 Document 08/17/25 08:54 [id number] 08/17/25 09:04 07/27/25 08/03/25 08/10/25 09:53 08:27 09:08 Wound Center Nurse 2 #19 Right 4th toe -Time 09:56 08:29 09:09 -Correct Patient Yes Yes Yes -Correct Side, Site, Position Yes Yes Yes -Correct Procedure Yes Yes Yes -Procedure Performed Yes Yes Yes -Type of Procedure Debridement Debridement Debridement -Clinical Debridement Subcutaneous Subcutaneous Subcutaneous -Tissue Removed Subcutaneous Subcutaneous Subcutaneous -Post Debridement (cm) - Length 0.5 0.2 0.1 -Post Debridement (cm) - Width 1.0 1.0 0.7 -Post Debridement (cm) - Depth 0.2 0.3 0.4 -Total Square (Post) (cm) 0.50 0.20 0.07 -Area of Debridement (cm) - Length 0.5 0.2 0.1 -Area of Debridement (cm) - Width 1.0 1.0 0.7 -Total Square (Area) (cm) 0.50 0.20 0.07 -Tunneling No No Yes -Tunneling Position (O'clock) 6 -Tunneling Distance (cm) 0.4 -Undermining/Tunneling No No No -Circular Undermining No No No -Wound/Ulcer Outcome Not Healed Not Healed Not Healed -Ulcer Cleansing Rinsed/ Rinsed/ Rinsed/ Irrigated with Irrigated with Irrigated with Saline Saline Saline -Foul Odor after Cleansing No No No -Bioengineered Tissue No No No -Bleeding Controlled with Pressure Pressure Pressure -Treatment Response Procedure Procedure Procedure Tolerated Well Tolerated Well Tolerated Well -Offloading No No -Debridement - Subq, 1st 20sq cm No No No 16. RLE deluna cluster -Time 09:54 08:30 09:09 -Correct Patient Yes Yes Yes -Correct Side, Site, Position Yes Yes Yes -Correct Procedure Yes Yes No -Procedure Performed Yes Yes No -Type of Procedure Debridement Debridement -Clinical Debridement Subcutaneous Subcutaneous -Tissue Removed Subcutaneous Subcutaneous -Post Debridement (cm) - Length 0.4 0.3 -Post Debridement (cm) - Width 0.5 0.2 -Post Debridement (cm) - Depth 0.1 0.1 -Total Square (Post) (cm) 0.20 0.06 -Area of Debridement (cm) - Length 0.4 0.3 -Area of Debridement (cm) - Width 0.5 0.2 -Total Square (Area) (cm) 0.20 0.06 -Tunneling No No No -Undermining/Tunneling No No No -Circular Undermining No No No -Wound/Ulcer Outcome Not Healed Not Healed Healed- Epithelialized -Ulcer Cleansing Rinsed/ Rinsed/ Irrigated with Irrigated with Saline Saline -Foul Odor after Cleansing No No No -Bioengineered Tissue No No No -Bleeding Controlled with Pressure Pressure -Treatment Response Procedure Procedure Tolerated Well Tolerated Well -Offloading No No No -Debridement - Open, 1st 20sq cm -Debridement - Subq, 1st 20sq cm No No -Debridement - Muscle / Fascia, 1st 20sq cm -Debridement - Bone, 1st 20sq cm 15. R plantar -Time 09:55 08:30 09:09 -Correct Patient Yes Yes Yes -Correct Side, Site, Position Yes Yes Yes -Correct Procedure Yes Yes Yes -Procedure Performed Yes Yes Yes -Type of Procedure Debridement Debridement Debridement -Clinical Debridement Subcutaneous Subcutaneous Subcutaneous -Tissue Removed Subcutaneous Subcutaneous Subcutaneous -Post Debridement (cm) - Length 1.1 0.9 1.0 -Post Debridement (cm) - Width 1.0 1.0 1.0 -Post Debridement (cm) - Depth 0.1 0.1 0.1 -Total Square (Post) (cm) 1.10 0.90 1.00 -Area of Debridement (cm) - Length 1.1 0.9 1.0 -Area of Debridement (cm) - Width 1.0 1.0 1.0 -Total Square (Area) (cm) 1.10 0.90 1.00 -Tunneling No No No -Undermining/Tunneling No No No -Circular Undermining No No No -Wound/Ulcer Outcome Not Healed Not Healed Not Healed -Ulcer Cleansing Rinsed/ Rinsed/ Rinsed/ Irrigated with Irrigated with Irrigated with Saline Saline Saline -Foul Odor after Cleansing No No No -Bioengineered Tissue No No No -Bleeding Controlled with Pressure Pressure Pressure -Treatment Response Procedure Procedure Procedure Tolerated Well Tolerated Well Tolerated Well -Offloading No No No -Debridement - Subq, 1st 20sq cm Yes Yes Yes Pain Scale: 0-10 Numeric Is Patient Pain Free? Yes Yes Yes 08/17/25 08:54 Wound Center Nurse 2 #19 Right 4th toe -Time 08:54 -Correct Patient Yes -Correct Side, Site, Position Yes -Correct Procedure Yes -Procedure Performed Yes -Type of Procedure Debridement -Clinical Debridement Subcutaneous -Tissue Removed Subcutaneous -Post Debridement (cm) - Length 0.1 -Post Debridement (cm) - Width 0.4 -Post Debridement (cm) - Depth 0.4 -Total Square (Post) (cm) 0.04 -Area of Debridement (cm) - Length 0.1 -Area of Debridement (cm) - Width 0.4 -Total Square (Area) (cm) 0.04 -Tunneling Yes -Tunneling Position (O'clock) 6 -Tunneling Distance (cm) 0.4 -Undermining/Tunneling -Circular Undermining -Wound/Ulcer Outcome Not Healed -Ulcer Cleansing Rinsed/ Irrigated with Saline -Foul Odor after Cleansing No -Bioengineered Tissue No -Bleeding Controlled with Pressure -Treatment Response Procedure Tolerated Well -Offloading No -Debridement - Subq, 1st 20sq cm No 16. RLE deluna cluster -Time 08:54 -Correct Patient Yes -Correct Side, Site, Position Yes -Correct Procedure No -Procedure Performed No -Type of Procedure -Clinical Debridement -Tissue Removed -Post Debridement (cm) - Length -Post Debridement (cm) - Width -Post Debridement (cm) - Depth -Total Square (Post) (cm) -Area of Debridement (cm) - Length -Area of Debridement (cm) - Width -Total Square (Area) (cm) -Tunneling No -Undermining/Tunneling No -Circular Undermining No -Wound/Ulcer Outcome Not Healed -Ulcer Cleansing Not Cleansed -Foul Odor after Cleansing -Bioengineered Tissue No -Bleeding Controlled with NA -Treatment Response -Offloading No -Debridement - Open, 1st 20sq cm No -Debridement - Subq, 1st 20sq cm No -Debridement - Muscle / Fascia, 1st No 20sq cm -Debridement - Bone, 1st 20sq cm No 15. R plantar -Time 08:55 -Correct Patient Yes -Correct Side, Site, Position Yes -Correct Procedure Yes -Procedure Performed Yes -Type of Procedure Debridement -Clinical Debridement Subcutaneous -Tissue Removed Subcutaneous -Post Debridement (cm) - Length 1.0 -Post Debridement (cm) - Width 2.5 -Post Debridement (cm) - Depth 0.1 -Total Square (Post) (cm) 2.50 -Area of Debridement (cm) - Length 1.0 -Area of Debridement (cm) - Width 2.5 -Total Square (Area) (cm) 2.50 -Tunneling No -Undermining/Tunneling No -Circular Undermining No -Wound/Ulcer Outcome Not Healed -Ulcer Cleansing Rinsed/ Irrigated with Saline -Foul Odor after Cleansing No -Bioengineered Tissue No -Bleeding Controlled with Pressure -Treatment Response Procedure Tolerated Well -Offloading No -Debridement - Subq, 1st 20sq cm Yes Pain Scale: 0-10 Numeric Is Patient Pain Free? Yes WC - Nurse 3 - General Ulcer D/C NN Start: 07/27/25 09:17 Freq: Status: Active Protocol: Activity Type Activity Date Activity User E-sign Co-sign Detail Recorded Client Recorded Date Recorded By Document 07/27/25 10:29 ML [id number] 07/27/25 10:31 ML Document 08/03/25 09:01 RB [id number] 08/03/25 09:03 RB Document 08/10/25 09:59 RB [id number] 08/10/25 10:00 RB Document 08/17/25 09:36 RB [id number] 08/17/25 09:38 RB 07/27/25 08/03/25 08/10/25 10:29 09:01 09:59 Wound Care Center Nurse 3 #19 Right 4th toe -Ulcer Cleansing Rinsed/ Rinsed/ Rinsed/ Irrigated with Irrigated with Irrigated with Saline Saline Saline -Primary Dressing Applied Aquacel Extra Aquacel Extra Aquacel AG 2x2 -Primary Dressing Covered/Secured with Dry Gauze, Dry Gauze & Dry Gauze,Dry Secured with Roll Gauze, Gauze & Roll Tape Secured with Gauze,Secured Tape with Tape -Aquacel Extra 1 1 -Aquacel AG 2x2 1 -Aquacel AG 4x4 16. RLE deluna cluster -Ulcer Cleansing Rinsed/ Rinsed/ Irrigated with Irrigated with Saline Saline -Primary Dressing Applied C Hydrogel C Hydrogel -Other Dressing hydrogel -Primary Dressing Covered/Secured with Dry Gauze & Dry Gauze & Dry Gauze, Roll Gauze, Roll Gauze, Secured with Secured with Secured with Tape Tape Tape -Hydrogel 0 1 15. R plantar -Ulcer Cleansing Rinsed/ Rinsed/ Wound Cleanser Irrigated with Irrigated with Saline Saline -Primary Dressing Applied Promogran Promogran Promogran -Primary Dressing Covered/Secured with Dry Gauze & Dry Gauze,Dry Dry Gauze & Roll Gauze, Gauze & Roll Roll Gauze, Secured with Gauze,Secured Secured with Tape with Tape Tape -Aquacel AG 4x4 -Promogran 1 1 1 RLE -Tubular Bandage Single Layer Single Layer -Size of Tubigrip Used Size F Size E -Size E ($) 1 -Size F ($) 1 Treatment Response Procedure Procedure Tolerated Well Tolerated Well Pain Scale: 0-10 Numeric Is Patient Pain Free? Yes Yes Yes WC - Visit Discharge Discharge Condition Stable Stable Ambulatory Status Ambulatory Ambulatory Transportation Private Auto Private Auto Medication Reconcilliation completed & No No provided to patient/care provider Clinical Summary of Care Provided Yes Yes 08/17/25 09:36 [facility] Nurse 3 #19 Right 4th toe -Ulcer Cleansing Wound Cleanser -Primary Dressing Applied Aquacel AG 4x4 -Primary Dressing Covered/Secured with Dry Gauze & Roll Gauze, Secured with Tape -Aquacel Extra -Aquacel AG 2x2 -Aquacel AG 4x4 1 16. RLE deluna cluster -Ulcer Cleansing Wound Cleanser -Primary Dressing Applied C Hydrogel -Other Dressing -Primary Dressing Covered/Secured with Dry Gauze, Secured with Tape -Hydrogel 1 15. R plantar -Ulcer Cleansing Wound Cleanser -Primary Dressing Applied Aquacel AG 4x4 -Primary Dressing Covered/Secured with Dry Gauze & Roll Gauze, Secured with Tape -Aquacel AG 4x4 1 -Promogran RLE -Tubular Bandage Single Layer -Size of Tubigrip Used Size E -Size E ($) 1 -Size F ($) Treatment Response Procedure Tolerated Well Pain Scale: 0-10 Numeric Is Patient Pain Free? Yes WC - Visit Discharge Discharge Condition Stable Ambulatory Status Ambulatory Transportation Private Auto Medication Reconcilliation completed & No provided to patient/care provider Clinical Summary of Care Provided Yes Additional Wound Wound debrided: right 4th toe Laterality: Right Wound Grade/Stage: Grade 1 Type of Debridement: Excisional debridement Anesthesia Used: 4% Lidocaine Solution Depth: Down to and including healthy tissue and in the subcutaneous layer Percentage of wound debrided: 100 Instrument Used: 3mm curette Tissue Removed: devitalized tissue Severity: Fat Layer Exposed Amount of bleeding with debridement: Mild Bleeding Controlled with: Compression and gauze Patient tolerated procedure: Patient tolerated procedure well Assessment/Plan Assessment/Plan (1) Decubitus ulcer of right foot: CODE(S): L89.899 - Pressure ulcer of other site, unspecified stage QUALIFIERS: Pressure injury stage: stage 2 Qualified Code(s): L89.892 - Pressure ulcer of other site, stage 2 (2) Diabetic ulcer of right foot associated with diabetes mellitus due to underlying condition, with fat layer exposed: CODE(S): E08.621 - Diabetes mellitus due to underlying condition with foot ulcer; L97.512 - Non-pressure chronic ulcer of other part of right foot with fat layer exposed QUALIFIERS: Diabetic foot ulcer location: midfoot Qualified Code(s): E08.621 - Diabetes mellitus due to underlying condition with foot ulcer; L97.412 - Non-pressure chronic ulcer of right heel and midfoot with fat layer exposed (3) Ulcer of right deluna with fat layer exposed: CODE(S): L97.812 - Non-pressure chronic ulcer of other part of right lower leg with fat layer exposed (4) Diabetic foot ulcer associated with type 2 diabetes mellitus, with fat layer exposed: CODE(S): E11.621 - Type 2 diabetes mellitus with foot ulcer; L97.502 - Non-pressure chronic ulcer of other part of unspecified foot with fat layer exposed QUALIFIERS: Diabetic foot ulcer location: midfoot Laterality: left Qualified Code(s): E11.621 - Type 2 diabetes mellitus with foot ulcer; L97.422 - Non-pressure chronic ulcer of left heel and midfoot with fat layer exposed (5) Diabetes: CODE(S): E11.9 - Type 2 diabetes mellitus without complications QUALIFIERS: Diabetes mellitus type: type 2 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: with custodial use Diabetes mellitus complication status: with hyperglycemia Qualified Code(s): E11.65 - Type 2 diabetes mellitus with hyperglycemia; Z79.4 - intermodal dispatcher (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) use of insulin (6) Uncontrolled diabetes mellitus: QUALIFIERS: Diabetes mellitus type: type 2 Glycemic state: with hyperglycemia Qualified Code(s): E11.65 - Type 2 diabetes mellitus with hyperglycemia (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: CODE(S): E11.49 - Type 2 diabetes mellitus with other diabetic neurological complication (8) Insulin dependent diabetes mellitus: (9) HTN (hypertension): CODE(S): I10 - Essential (primary) hypertension QUALIFIERS: Hypertension type: primary hypertension Qualified Code(s): I10 - Essential (primary) hypertension (10) Hyperlipidemia: CODE(S): E78.5 - Hyperlipidemia, unspecified QUALIFIERS: Hyperlipidemia type: unspecified Qualified Code(s): E78.5 - Hyperlipidemia, unspecified (11) PVD (peripheral vascular disease): CODE(S): I73.9 - Peripheral vascular disease, unspecified (12) PAD (peripheral artery disease): CODE(S): I73.9 - Peripheral vascular disease, unspecified (13) Venous insufficiency of both lower extremities: CODE(S): I87.2 - Venous insufficiency (chronic) (peripheral) (14) Obesity: CODE(S): E66.9 - Obesity, unspecified QUALIFIERS: Obesity type: due to excess calories Obesity classification: adult class 1 (BMI 30 - 34.9) Serious obesity comorbidity pr esence: with serious comorbidity Body mass index: BMI 31.0-31.9 Qualified Code(s): E66.811 - Obesity, class 1; E66.09 - Other obesity due to excess calories; Z68.31 - Body mass index [BMI] 31.0-31.9, adult PLAN: Plan Evaluation and debridement performed today in clinic as annotated above. At home wound-care instructions: He will dress his ulcers of his right deluna with hydrogel and gauze daily. The right plantar ulcer will be dressed with Aquacel Ag. His right 4th toe will be dressed with Aquacel Ag daily. Apply vaseline or other emollient cream to his feet daily to reduce callus formation. Keep dressings dry and intact. He was given a tubigrip compression sock to help treat edema of right ankle. Off-loading: The patient was instructed to avoid pressure and friction on the affected areas. Reposition every 2 hours at minimum. Avoid prolonged standing and/or dangling of legs. When seated, feet should be elevated at chest level. Frequent ambulation is encouraged. Diet: Patient encouraged to increase protein intake while taking caution to avoid high carbohydrate and/or sugar intake and try to achieve A1C if 7.5% or less. Currently 13.2% at last check. Labs/cultures/imaging: Culture of right 4th toe was positive and he was prescribed Linezolid and Metronidazole but has not started these yet. XR of right 4th toe done on 07/27/25 was negative for osteomyelitis. Order given to repeat XR of his 4th toe to re-evaluate for osteomyelitis. Wound cultures repeated today due to the lack of improvement. Follow-up: Return in 1 week for wound care follow up. Return sooner or report to the emergency room should symptoms worsen, or new symptoms arise.
--- NOTE | 2025-08-20 09:12 | WC ---
PHOTO-RIGHT SHARP 08/17/25
--- NOTE | 2025-08-20 09:12 | WC ---
PHOTO-RIGHT 4TH TOE 08/17/25
--- NOTE | 2025-08-20 09:13 | WC ---
PHOTO-RIGHT PLANTAR 08/17/25
== END 2025-08-21 23:59 | disposition home or self-care (01) ==
LOC: WC 08:15
PROVIDERS: PCP Family Medicine; Referring Provider Family Medicine; Visit Provider Family Medicine
DX: E11.621 Type 2 diabetes mellitus with foot ulcer (principal); E11.622 Type 2 diabetes mellitus with other skin ulcer; L97.212 Non-pressure chronic ulcer of right calf with fat layer exposed; L97.512 Non-pressure chronic ulcer of other part of right foot with fat layer exposed; E11.51 Type 2 diabetes mellitus with diabetic peripheral angiopathy without gangrene; E11.59 Type 2 diabetes mellitus with other circulatory complications; I89.0 Lymphedema, not elsewhere classified; I87.2 Venous insufficiency (chronic) (peripheral)
CPT/HCPCS: 11042; 73630; 73660; 87070; 87075; 87077; 87186; 87205

== ENCOUNTER 2025-09-19 08:15 | Outpatient (RCR) | payer OTHER, SELFPAY ==
[2025-08-24 08:09] VITALS: RESP 16; TEMP 35.9
--- NOTE | 2025-08-24 14:09 | PCM.WC.PN ---
History of Present Illness Date of Service: 08/24/25 Chief Complaint: Ulcerations of the right pretibial and lateral calf, right lateral foot History of Wound: David is a 54 year old male that presents to the wound center for evaluation and treatment of an ulcer of his right foot. The ulcer appeared approximately a week ago. He noticed blood coming from his shoe and there was a blister that had broken open. He has been applying gauze and washing with soap daily to treat the ulcer and was seen at urgent care and started on doxycycline. A wound culture was taken and results showed multiple bacteria with Pseudomonas, Staph and Strep. Anaerobic culture is still pending. He denies systemic symptoms such as fever, chills, erythema, odor. He is struggling financially to afford supplies, medications and taking care of his home and financial responsibilities. He works at the [employer] [place] [employer] and he is on his feet all the time there. His last A1C was 01/2025 and was 13.2 %. He is a very poorly controlled diabetic on insulin. He does not have diabetic shoes. He does see Dr. Ozuna for podiatry for diabetic foot exams. 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 He also had repeat venous testing 04/08/23 which showed incompetence and vascular surgery was considered but was not done at that time. He has not been able to place compression because he is unable to bend to pull on compression stockings due to arthritis in his back. He is not able to wrap with RADHA bandages either. Circaids were tried previously but he was unable to do this as well. He has been wearing tubigrips for compression. He states he still has issues getting them on at times when his back is flared up. He has chronic lymphedema. Subjective Subjective Kian returns today for treatment of his right deluna ulcer and right plantar ulcer and right 4th toe ulcer. Cultures were positive for MRSA and anaerobic bacteria. He finished Linezolid and has 2 days left of Flagyl. There is small amount of drainage from the 4th toe but the edema and erythema remains decreased. Plantar foot is slightly smaller. XR of toe did not show any osteomyelitis from 07/27/25 but repeat xray from 08/17/25 showed osteomyelitis of the 4th middle and distal phalanges. Foot xray also showed Charcot changes to his proximal and distal metatarsal joints. He denies any increased pain. He is tolerating dressing changes. He returned to work beginning of July and has not noticed any increased drainage or worsening in his right plantar foot. He denies increased pain, odor or drainage. Objective Data Objective Data Vital Signs: Vital Signs Temp Resp 96.6 F L 16 08/24/25 08:09 08/24/25 08:09 Physical Exam Const alert, oriented x3 and no apparent distress General Appearance: cooperative, comfortable and well developed Orientation / Consciousness: awake and oriented to person HEENT normocephalic and head/scalp atraumatic Eyes EOMs intact bilaterally Resp normal respiratory effort, normal air movement, no retractions and no use of accessory muscles Effort and Inspection: able to speak in complete sentences Skin Wounds: wounds noted Wound Narrative: Clustered ulcerations are noted on the right pretibial and lateral calf. The ulcerations are full-thickness. Ulcer margins are well beveled. There is no sign of infection or cellulitis. Dimensions are documented elsewhere. Dry eschar and bioburden are noted. Right plantar ulcer at base of the 5th digit has minimal slough and good granulation at base of ulcer. Right 4th toe is still slightly boggy and edematous and ulcer present at nail bed that undermines proximally toward the base of his 4th toe. The ulceration on the left heel appears to be healed and epithelialized. The plantar aspect of left foot is dry and scaly. Neuro Sensorium / Orientation: awake, alert and oriented to person Psych mental status grossly normal, cooperative and affect normal Debridement Note Debridement Note Wound debrided: Right lateral foot Laterality: Right Wound Grade/Stage: Delgado Grade I Type of Debridement: Excisional debridement Anesthesia Used: 5% Lidocaine Gel Depth: Down to and including healthy tissue and in the subcutaneous layer Percentage of wound debrided: 100 Instrument Used: 3mm curette Tissue Removed: yellow slough, devitalized tissue Severity: Fat Layer Exposed Amount of bleeding with debridement: Mild Bleeding Controlled with: Compression and gauze Patient tolerated procedure: Patient tolerated procedure well Post-Debridement Measurements and Additional Note: Post-Debridement Measurements/Treatment DESMOND - Nurse 1 - General Ulcer Assessment Start: 08/24/25 08:09 Freq: Status: Active Protocol: MART Activity Type Activity Date Activity User E-sign Co-sign Detail Recorded Client Recorded Date Recorded By Document 08/24/25 08:09 [id number] [id number] 08/24/25 08:18 08/24/25 08:09 - Today's Visit Information Type of service Follow-up Visit (Physician/INPATIENT NURSING AIDE ) Arrival Mode Ambulatory Patient Identification Verified (Name & Yes ) Patient Requires Transmission-Based No Precautions Finger Stick Blood Sugar(mg/dl) (if 110 indicated): Blood Sugar Stated by Patient Vital Signs Temperature (97.8 F-99.1 F) 96.6 F L Temperature Source Temporal Respiratory Rate (12-18) 16 Respiratory rate source Observation History Since Last Visit- (Skip if this is Patient's initial visit) Have you changed medications since your Yes last visit? Any new allergies or adverse reactions No Had a fall/change in ADL's that may No increase risk of falls Signs or symptoms of abuse and/or No neglect since last visit Have you been in the hospital since your No last visit? Has dressing in place as prescribed Yes Has compression in place as prescribed Yes Has offloadiing in place as prescribed N/A Experienced any changes in pain level or No management Left Footwear Regular Shoe Right Footwear Regular Shoe Pain Scale: 0-10 Numeric Is Patient Pain Free? Yes - Nurse 1 - General Ulcer Measurement Start: 08/24/25 08:09 Freq: Status: Active Protocol: Activity Type Activity Date Activity User E-sign Co-sign Detail Recorded Client Recorded Date Recorded By Document 08/24/25 08:09 [id number] [id number] 08/24/25 08:18 08/24/25 08:09 Wound Center Nurse 1 17. left foot cluster -Combined with other wound No -Current Size (cm) - Length 0.2 -Current Size (cm) - Width 0.4 -Current Size (cm) - Depth 0.1 -Total Square Cm 0.08 -Photo Taken Yes -Epithelialization Medium 34-66% -Tunneling No -Undermining/Tunneling No -Circular Undermining No -Exudate Amt None Present -Wound Margin Flat & Intact -Granulation Amt Large (67-100%) -Granulation Quality Red -Slough/Fibrin Yes -Necrosis Amt Small (1-33%) -Necrotic Tissue Type Adherent Slough -Structure Exposed N/A -Texture (Milly-wound Skin Appearance) Assessed, Scarring -Moisture (Milly-wound Skin Appearance) Assessed,Dry/ Scaly -Color (Milly-wound Skin Appearance) Assessed -Temperature (Milly-wound Skin No Abnormality Appearance) (Pt Warm) -Tenderness on Palpation (Milly-wound No Skin Appearance) -Ulcer Cleansing Soap and Water -Foul Odor after Cleansing No -Anesthetic Used 5% Lidocaine Gel 16. RLE deluna cluster -Combined with other wound No -Current Size (cm) - Length 0.1 -Current Size (cm) - Width 0.1 -Current Size (cm) - Depth 0.1 -Total Square Cm 0.01 -Photo Taken Yes -Epithelialization Large 67-100% -Tunneling No -Undermining/Tunneling No -Circular Undermining No -Exudate Amt None Present -Wound Margin Flat & Intact -Granulation Amt Large (67-100%) -Granulation Quality Red -Slough/Fibrin Yes -Necrosis Amt Small (1-33%) -Necrotic Tissue Type Adherent Slough -Structure Exposed N/A -Texture (Milly-wound Skin Appearance) Assessed -Moisture (Milly-wound Skin Appearance) Assessed,Dry/ Scaly -Color (Milly-wound Skin Appearance) Assessed -Temperature (Milly-wound Skin No Abnormality Appearance) (Pt Warm) -Tenderness on Palpation (Milly-wound No Skin Appearance) -Ulcer Cleansing Rinsed/ Irrigated with Saline -Foul Odor after Cleansing No -Anesthetic Used 5% Lidocaine Gel #19 Right 4th toe -Combined with other wound No -Current Size (cm) - Length 0.1 -Current Size (cm) - Width 0.1 -Current Size (cm) - Depth 0.1 -Total Square Cm 0.01 -Photo Taken Yes -Epithelialization Large 67-100% -Tunneling No -Undermining/Tunneling No -Circular Undermining No -Exudate Amt None Present -Wound Margin Fibrotic Scar, Thickened Scar -Granulation Amt None Present (0 %) -Slough/Fibrin Yes -Necrosis Amt Large (67-100%) -Necrotic Tissue Type Adherent Slough -Structure Exposed N/A -Texture (Milly-wound Skin Appearance) Assessed, Scarring -Moisture (Milly-wound Skin Appearance) Assessed,Dry/ Scaly -Color (Milly-wound Skin Appearance) Assessed -Temperature (Milly-wound Skin No Abnormality Appearance) (Pt Warm) -Tenderness on Palpation (Milly-wound No Skin Appearance) -Ulcer Cleansing Not Cleansed -Foul Odor after Cleansing No -Anesthetic Used 5% Lidocaine Gel 15. R plantar -Combined with other wound No -Current Size (cm) - Length 0.2 -Current Size (cm) - Width 0.4 -Current Size (cm) - Depth 0.1 -Total Square Cm 0.08 -Photo Taken Yes -Epithelialization Large 67-100% -Tunneling No -Undermining/Tunneling No -Circular Undermining No -Exudate Amt None Present -Wound Margin Fibrotic Scar, Thickened Scar -Granulation Amt Medium (34-66%) -Granulation Quality [place] -Slough/Fibrin Yes -Necrosis Amt Small (1-33%) -Necrotic Tissue Type Adherent Slough -Structure Exposed N/A -Texture (Milly-wound Skin Appearance) Assessed -Moisture (Milly-wound Skin Appearance) Assessed,Dry/ Scaly -Color (Milly-wound Skin Appearance) Assessed -Temperature (Milly-wound Skin No Abnormality Appearance) (Pt Warm) -Tenderness on Palpation (Milly-wound No Skin Appearance) -Ulcer Cleansing Rinsed/ Irrigated with Saline -Foul Odor after Cleansing No -Anesthetic Used 5% Lidocaine Gel Lower Limb Edema Present NA WC - Nurse 2 - General Ulcer CM Notes Start: 08/24/25 08:09 Freq: Status: Active Protocol: Activity Type Activity Date Activity User E-sign Co-sign Detail Recorded Client Recorded Date Recorded By Document 08/24/25 09:05 [id number] 08/24/25 09:18 08/24/25 09:05 Wound Center Nurse 2 16. RLE deluna cluster -Time 09:08 -Correct Patient Yes -Correct Side, Site, Position Yes -Correct Procedure No -Procedure Performed No -Wound/Ulcer Outcome Healed- Epithelialized -Ulcer Cleansing Not Cleansed -Foul Odor after Cleansing No -Offloading No #19 Right 4th toe -Time 09:06 -Correct Patient Yes -Correct Side, Site, Position Yes -Correct Procedure Yes -Procedure Performed Yes -Type of Procedure Debridement -Clinical Debridement Subcutaneous -Tissue Removed Subcutaneous -Post Debridement (cm) - Length 0.2 -Post Debridement (cm) - Width 0.1 -Post Debridement (cm) - Depth 0.3 -Total Square (Post) (cm) 0.02 -Area of Debridement (cm) - Length 0.2 -Area of Debridement (cm) - Width 0.1 -Total Square (Area) (cm) 0.02 -Tunneling No -Undermining/Tunneling No -Circular Undermining No -Wound/Ulcer Outcome Not Healed -Ulcer Cleansing Rinsed/ Irrigated with Saline -Foul Odor after Cleansing No -Bioengineered Tissue No -Bleeding Controlled with Pressure -Treatment Response Procedure Tolerated Well -Offloading No -Debridement - Subq, 1st 20sq cm No 15. R plantar -Time 09:07 -Correct Patient Yes -Correct Side, Site, Position Yes -Correct Procedure Yes -Procedure Performed Yes -Type of Procedure Debridement -Clinical Debridement Subcutaneous -Tissue Removed Subcutaneous -Post Debridement (cm) - Length 0.3 -Post Debridement (cm) - Width 1.5 -Post Debridement (cm) - Depth 0.1 -Total Square (Post) (cm) 0.45 -Area of Debridement (cm) - Length 0.3 -Area of Debridement (cm) - Width 1.5 -Total Square (Area) (cm) 0.45 -Tunneling No -Undermining/Tunneling No -Circular Undermining No -Wound/Ulcer Outcome Not Healed -Ulcer Cleansing Rinsed/ Irrigated with Saline -Foul Odor after Cleansing No -Bioengineered Tissue No -Bleeding Controlled with Pressure -Treatment Response Procedure Tolerated Well -Offloading No -Debridement - Subq, 1st 20sq cm Yes Pain Scale: 0-10 Numeric Is Patient Pain Free? Yes - Nurse 3 - General Ulcer D/C NN Start: 08/24/25 08:09 Freq: Status: Active Protocol: Activity Type Activity Date Activity User E-sign Co-sign Detail Recorded Client Recorded Date Recorded By Document 08/24/25 09:28 LATRELL [id number] 08/24/25 09:29 LATRELL 08/24/25 09:28 Wound Care Center Nurse 3 #19 Right 4th toe -Ulcer Cleansing Rinsed/ Irrigated with Saline -Foul Odor after Cleansing No -Primary Dressing Applied Promogran -Primary Dressing Covered/Secured with Dry Gauze, Secured with Tape -Promogran 1 15. R plantar -Ulcer Cleansing Rinsed/ Irrigated with Saline -Foul Odor after Cleansing No -Primary Dressing Applied Aquacel AG 4x4 -Primary Dressing Covered/Secured with Dry Gauze & Roll Gauze, Secured with Tape -Aquacel AG 4x4 1 RLE -Tubular Bandage Single Layer -Size of Tubigrip Used Size D -Size D ($) 1 Pain Scale: 0-10 Numeric Is Patient Pain Free? Yes WC - Visit Discharge Discharge Condition Stable Ambulatory Status Ambulatory Transportation Private Auto Medication Reconcilliation completed & Yes provided to patient/care provider Clinical Summary of Care Provided Yes Additional Wound Wound debrided: right 4th toe Laterality: Right Wound Grade/Stage: Grade 3 Type of Debridement: Excisional debridement Anesthesia Used: 4% Lidocaine Solution Depth: Down to and including healthy tissue and in the subcutaneous layer Percentage of wound debrided: 100 Instrument Used: 3mm curette Tissue Removed: devitalized tissue Severity: Fat Layer Exposed Amount of bleeding with debridement: Mild Bleeding Controlled with: Compression and gauze Patient tolerated procedure: Patient tolerated procedure well Assessment/Plan Assessment/Plan (1) Decubitus ulcer of right foot: CODE(S): L89.899 - Pressure ulcer of other site, unspecified stage QUALIFIERS: Pressure injury stage: stage 2 Qualified Code(s): L89.892 - Pressure ulcer of other site, stage 2 (2) Diabetic ulcer of right foot associated with diabetes mellitus due to underlying condition, with fat layer exposed: CODE(S): E08.621 - Diabetes mellitus due to underlying condition with foot ulcer; L97.512 - Non-pressure chronic ulcer of other part of right foot with fat layer exposed QUALIFIERS: Diabetic foot ulcer location: midfoot Qualified Code(s): E08.621 - Diabetes mellitus due to underlying condition with foot ulcer; L97.412 - Non-pressure chronic ulcer of right heel and midfoot with fat layer exposed (3) Ulcer of right deluna with fat layer exposed: CODE(S): L97.812 - Non-pressure chronic ulcer of other part of right lower leg with fat layer exposed (4) Diabetic foot ulcer associated with type 2 diabetes mellitus, with fat layer exposed: CODE(S): E11.621 - Type 2 diabetes mellitus with foot ulcer; L97.502 - Non-pressure chronic ulcer of other part of unspecified foot with fat layer exposed QUALIFIERS: Diabetic foot ulcer location: midfoot Laterality: left Qualified Code(s): E11.621 - Type 2 diabetes mellitus with foot ulcer; L97.422 - Non-pressure chronic ulcer of left heel and midfoot with fat layer exposed (5) Diabetes: CODE(S): E11.9 - Type 2 diabetes mellitus without complications QUALIFIERS: Diabetes mellitus type: type 2 Diabetes mellitus long term acute care registered nurse insulin use: with usp use Diabetes mellitus complication status: with hyperglycemia Qualified Code(s): E11.65 - Type 2 diabetes mellitus with hyperglycemia; Z79.4 - custodial (current) use of insulin (6) Uncontrolled diabetes mellitus: QUALIFIERS: Diabetes mellitus type: type 2 Glycemic state: with hyperglycemia Qualified Code(s): E11.65 - Type 2 diabetes mellitus with hyperglycemia (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: CODE(S): E11.49 - Type 2 diabetes mellitus with other diabetic neurological complication (8) Insulin dependent diabetes mellitus: (9) HTN (hypertension): CODE(S): I10 - Essential (primary) hypertension QUALIFIERS: Hypertension type: primary hypertension Qualified Code(s): I10 - Essential (primary) hypertension (10) Hyperlipidemia: CODE(S): E78.5 - Hyperlipidemia, unspecified QUALIFIERS: Hyperlipidemia type: unspecified Qualified Code(s): E78.5 - Hyperlipidemia, unspecified (11) PVD (peripheral vascular disease): CODE(S): I73.9 - Peripheral vascular disease, unspecified (12) PAD (peripheral artery disease): CODE(S): I73.9 - Peripheral vascular disease, unspecified (13) Venous insufficiency of both lower extremities: CODE(S): I87.2 - Venous insufficiency (chronic) (peripheral) (14) Obesity: CODE(S): E66.9 - Obesity, unspecified QUALIFIERS: Obesity type: due to excess calories Obesity classification: adult class 1 (BMI 30 - 34.9) Serious obesity comorbidity presence: with serious comorbidity Body mass index: BMI 31.0-31.9 Qualified Code(s): E66.811 - Obesity, class 1; E66.09 - Other obesity due to excess calories; Z68.31 - Body mass index [BMI] 31.0-31.9, adult PLAN: Plan Evaluation and debridement performed today in clinic as annotated above. At home wound-care instructions: He will dress the right plantar ulcer with Aquacel Ag. His right 4th toe will be dressed with Promogran daily. Apply vaseline or other emollient cream to his feet daily to reduce callus formation. Keep dressings dry and intact. He was given a tubigrip compression sock to help treat edema of right ankle. Off-loading: The patient was instructed to avoid pressure and friction on the affected areas. Reposition every 2 hours at minimum. Avoid prolonged standing and/or dangling of legs. When seated, feet should be elevated at chest level. Frequent ambulation is encouraged. Diet: Patient encouraged to increase protein intake while taking caution to avoid high carbohydrate and/or sugar intake and try to achieve A1C if 7.5% or less. Currently 13.2% at last check. Labs/cultures/imaging: Culture of right 4th toe was positive and he was prescribed Linezolid and Metronidazole but has not started these yet. XR of right 4th toe done on 07/27/25 was negative for osteomyelitis. XR 08/17/25 were suggestive of osteomyelitis of his right 4th middle-distal phalanges. Wound cultures were negative. He was started on doxycycline twice daily for the osteomyelitis and referred to podiatry for possible surgical management of the osteomyelitis. He was also asked to schedule with his shared services representative as an outpatient regarding Charcot changes seen on xray. Follow-up: Return in 1 week for wound care follow up. Return sooner or report to the emergency room should symptoms worsen, or new symptoms arise.
--- NOTE | 2025-08-28 11:18 | WC ---
PHOTO-RIGHT SHARP 08/24/25
--- NOTE | 2025-08-28 11:20 | WC ---
PHOTO-RIGHT 4TH TOE 08/24/25
--- NOTE | 2025-08-28 11:22 | WC ---
PHOTO-RIGHT PLANTAR 08/24/25
[2025-08-29 10:16] VITALS: BP 154/99; PULSE 89; RESP 16; TEMP 36.1
[2025-08-29 11:59] LABS: Hematocrit 39.9 % (40-54); Hemoglobin 13.6 g/dL (13.0-16.5); Mean Corp Hgb Conc 34.1 g/dL (32-36); Mean Corpuscular Volume 82.8 fL (80-94); Mean Platelet Vol. 10.5 fl (6.2-12.0); Platelet Count 244 K/mm3 (150-450); RBC Distribution Width CV 14.7 % (11.6-14.6); RBC Distribution Width SD 43.8 fl (35.1-43.9); Red Blood Count 4.82 M/mm3 (4.6-6.2); White Blood Count 7.4 K/mm3 (4.4-11.0)
[2025-08-29 12:24] LABS: Anion Gap 13 (5-15); BUN 16 mg/dL (4-19); BUN/Creat Ratio 21.0 RATIO (10-20); CRP 9.33 mg/L (0.0-3.0); Calcium,Total 9.3 mg/dL (7.6-11.0); Carbon Dioxide 25.4 mmol/L (21.0-32.0); Chloride 96 mmol/L (98-108); Glucose 295 mg/dL (70-99); Potassium 4.3 mmol/L (3.3-5.1)
--- NOTE | 2025-08-29 12:47 | HP.PCM_ITS ---
History of Present Illness Date of Service: 08/29/25 Chief Complaint: Ulcerations of the right pretibial and lateral calf, right lateral foot History of Wound: David is a 54 year old male that presents to the wound center for evaluation and treatment of an ulcer of his right foot. The ulcer appeared approximately a week ago. He noticed blood coming from his shoe and there was a blister that had broken open. He has been applying gauze and washing with soap daily to treat the ulcer and was seen at urgent care and started on doxycycline. A wound culture was taken and results showed multiple bacteria with Pseudomonas, Staph and Strep. Anaerobic culture is still pending. He denies systemic symptoms such as fever, chills, erythema, odor. He is struggling financially to afford supplies, medications and taking care of his home and financial responsibilities. 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 His last A1C was 01/2025 and was 13.2 %. He is a very poorly controlled diabetic on insulin. He does not have diabetic shoes. He does see Dr. Ozuna for podiatry for diabetic foot exams. 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 He also had repeat venous testing 04/08/23 which showed incompetence and vascular surgery was considered but was not done at that time. He has not been able to place compression because he is unable to bend to pull on compression stockings due to arthritis in his back. He is not able to wrap with RADHA bandages either. Circaids were tried previously but he was unable to do this as well. He has been wearing tubigrips for compression. He states he still has issues getting them on at times when his back is flared up. He has chronic lymphedema. Progress of Wound: Patient is a 54-year-old diabetic male presenting to wound care center today for consultation for podiatry with concerns of a full-thickness wound to the plantar aspect of the right foot as well as osteomyelitis to the right fourth digit. Patient was seeing a scheduling specialist here at the hospital but has come to my clinic for further evaluation and care. Patient admits that his blood sugar today was 120 mg/dL however his last A1c on 07/09/2025 was 14.8%. I discussed with the patient that this is a blood sugar of approximately 350 mg/dL which she was understanding of. Patient does admit to some warmth to the right foot. He is not wearing diabetic shoes. He denies trauma. Denies constitutional symptoms. No other pedal complaints at this time. [facility] Medical History MRSA (methicillin resistant Staphylococcus aureus) infection Polyneuropathy due to type 2 diabetes mellitus Decubitus ulcer of right foot Lumbar strain Right shoulder strain Contusion of right knee Contusion of left knee Carpal tunnel syndrome Traumatic closed nondisplaced fracture of one rib of left side High cholesterol Diabetes Hypertension Home Medications ?Medication ?Instructions ?Recorded ?Last Taken ?Type amlodipine 5 mg tablet 5 mg PO DAILY 05/26/18 Unkno wn History losartan 25 mg tablet 25 mg PO DAILY 05/26/18 Unkn own History metoprolol tartrate 25 mg tablet 25 mg PO BID 05/26/18 Unknown History Lasix 40 mg PO BID 10/07/18 Unknow n History Potassium Chloride 10 meq PO DAILY 10/07/18 Unk nown History ibuprofen 600 mg tablet 600 mg PO Q8H PRN PRN pain # 20 10/28/24 Unknown Rx TABLETS alendronate 70 mg tablet 70 mg PO QWEEK 11/06/24 Unkn own History cholecalciferol (vitamin D3) 1,250 1,250 mcg PO QWEEK 11/06/24 Unknown History mcg (50,000 unit) capsule testosterone 1.62 % (20.25 mg/1.25 1 packet transderma l QDAY 11/06/24 Unknown History gram) transdermal gel packet tirzepatide 5 mg/0.5 mL 5 mg (0.5 mL) subcut QWEEK # 2 mL 02/05/25 Unknown Rx subcutaneous pen injector (Mounamenaro) doxycycline monohydrate 100 mg 100 mg PO BID #20 caps 05/08/25 Unknown Rx capsule ciprofloxacin HCl 500 mg tablet 500 mg PO BID #20 tabs 05/11/25 Unknown Rx linezolid 600 mg tablet 600 mg PO BID #20 tabs 05/11 Unknown Rx blood sugar diagnostic (OneTouch #100 ea 07/09/25 Unkn own Rx Verio test strips) insulin regular hum U-500 conc 500 100 unit (0.2 mL) s ubcut TIDWMEAL 07/09/25 Unknown Rx unit/mL(3 mL) subcut pen (Humulin #18 mL R U-500 (Conc) Insulin Kwikpen) rosuvastatin 20 mg tablet 20 mg PO QDAY 07/09/25 Unkno wn History sertraline 100 mg tablet 150 mg PO QDAY 07/09/25 Unkn own History levofloxacin 750 mg tablet 750 mg PO DAILY 7 days #7 t abs 07/27/25 Unknown Rx Allergy/AdvReac Type Severity Reaction Status Date / Time liraglutide (From Victoza) Allergy Rash Verified 07/09/25 09:04 metformin (From Glucophage) Allergy Rash Verified 07/09/25 09:04 Penicillins (PCN) Allergy Rash Verified 07/09/25 09:04 Sulfa (Sulfonamide Allergy Rash Verified 07/09/25 09:04 Antibiotics) Family History Other Alcoholism Arthritis CVA (cerebral vascular accident) Cancer Depression Diabetes Heart disease High cholesterol Hypertension Thyroid disorder Surgical History Hx of foot surgery Social History Smoking Status: Never smoker Vital Signs Vital Signs Vital Signs: 08/29/25 10:16 Temperature 96.9 F L Temperature Source Temporal Pulse Rate 89 Respiratory Rate 16 Blood Pressure 154/99 H Blood Pressure Mean 117 Blood Pressure Source Monitor Blood Pressure Position Sitting Blood Pressure Location Left Arm Physical Exam Narrative Vascular: DP and PT pulse are palpable to the right lower extremity. CFT is brisk. Skin temperature gradient is warm to warm from proximal ankles to distal digits with mild focal increase appreciated to the lateral distal right foot. Blanchable erythema is appreciated to the distal lateral right foot. Neurological: Light touch is intact. Protective station is absent. Dermatological: Dactylitis appreciated to the right fourth digit consistent with chronic osteomyelitis. Full-thickness wound to the plantar subfifth metatarsal head measuring 1.7 x 2.5 x 0.2 cm. Wound base is fibrogranular in nature with some evidence of necrosis. Culture was taken. Malodor was present. Negative probe to bone. Excisional debridement down to and including subcutaneous tissue with a number 5 mm dermal curette as well as with a sterile pickup and #15 blade done without incident. Predebridement measurement was 1.0 x 0.9 x 0.1 cm. Postdebridement measurement is 1.7 x 2.5 x 0.2 cm. Muscle skeletal: Mild rocker-bottom foot type is appreciated. There is concern for Charcot deformity to the right lower extremity when compared to the left. No pain on palpation to the right fourth digit or full-thickness wound to the plantar aspect of the right foot. Debridement Note Debridement Note Debridement Free Text: Excisional debridement down to and including subcutaneous tissue with a number 5 mm dermal curette as well as with a sterile pickup and #15 blade done without incident. Predebridement measurement was 1.0 x 0.9 x 0.1 cm. Postdebridement measurement is 1.7 x 2.5 x 0.2 cm. Post-Debridement Measurements and Additional Note: Post-Debridement Measurements/Treatment - Nurse 1 - General Ulcer Assessment Start: 08/24/25 08:09 Freq: Status: Active Protocol: WC.VAMSHIT Activity Type Activity Date Activity User E-sign Co-sign Detail Recorded Client Recorded Date Recorded By Document 08/24/25 08:09 [id number] 08/24/25 08:18 Document 08/29/25 10:16 CP [id number] 08/29/25 10:24 08/24/25 08/29/25 08:09 10:16 - Today's Visit Information Type of service Follow-up Visit Follow-up Visit (Physician/INSIDE SALES AGENT (Physician/INSIDE SALES AGENT ) ) Arrival Mode Ambulatory Ambulatory Patient Identification Verified (Name & Yes Yes ) Patient Requires Transmission-Based No Precautions Finger Stick Blood Sugar(mg/dl) (if 110 indicated): Blood Sugar Stated by Patient Vital Signs Temperature (97.8 F-99.1 F) 96.6 F L 96.9 F L Temperature Source Temporal Temporal Pulse Rate (60-100) 89 Pulse Location Monitor Respiratory Rate (12-18) 16 16 Respiratory rate source Observation Observation Blood Pressure (90/60-120/80) 154/99 H Blood Pressure Mean 117 Source Monitor Position Sitting Blood Pressure Location Left Arm History Since Last Visit- (Skip if this is Patient's initial visit) Have you changed medications since your Yes No last visit? Any new allergies or adverse reactions No No Had a fall/change in ADL's that may No No increase risk of falls Signs or symptoms of abuse and/or No No neglect since last visit Have you been in the hospital since your No No last visit? Has dressing in place as prescribed Yes Yes Has compression in place as prescribed Yes N/A Has offloadiing in place as prescribed N/A No Experienced any changes in pain level or No No management Left Footwear Regular Shoe Right Footwear Regular Shoe Pain Scale: 0-10 Numeric Is Patient Pain Free? Yes No WC - Nurse 1 - General Ulcer Measurement Start: 08/24/25 08:09 Freq: Status: Active Protocol: Activity Type Activity Date Activity User E-sign Co-sign Detail Recorded Client Recorded Date Recorded By Document 08/24/25 08:09 LATRELL [id number] 08/24/25 08:18 JF Document 08/29/25 10:16 CP [id number] 08/29/25 10:24 CP 08/24/25 08/29/25 08:09 10:16 Wound Center Nurse 1 #19 Right 4th toe -Combined with other wound No -Current Size (cm) - Length 0.1 0.5 -Current Size (cm) - Width 0.1 0.5 -Current Size (cm) - Depth 0.1 0.1 -Total Square Cm 0.01 0.25 -Photo Taken Yes -Epithelialization Large 67-100% -Tunneling No -Undermining/Tunneling No -Circular Undermining No -Exudate Amt None Present None Present -Wound Margin Fibrotic Scar, Thickened Scar -Granulation Amt None Present (0 %) -Slough/Fibrin Yes -Necrosis Amt Large (67-100%) -Necrotic Tissue Type Adherent Slough -Structure Exposed N/A N/A -Texture (Milly-wound Skin Appearance) Assessed, No Abnormality Scarring -Moisture (Milly-wound Skin Appearance) Assessed,Dry/ No Abnormality Scaly -Color (Milly-wound Skin Appearance) Assessed No Abnormality -Temperature (Milly-wound Skin No Abnormality No Abnormality Appearance) (Pt Warm) (Pt Warm) -Tenderness on Palpation (Milly-wound No No Skin Appearance) -Ulcer Cleansing Not Cleansed Rinsed/ Irrigated with Saline -Foul Odor after Cleansing No -Anesthetic Used 5% Lidocaine 5% Lidocaine Gel Gel 17. left foot cluster -Combined with other wound No -Current Size (cm) - Length 0.2 -Current Size (cm) - Width 0.4 -Current Size (cm) - Depth 0.1 -Total Square Cm 0.08 -Photo Taken Yes -Epithelialization Medium 34-66% -Tunneling No -Undermining/Tunneling No -Circular Undermining No -Exudate Amt None Present -Wound Margin Flat & Intact -Granulation Amt Large (67-100%) -Granulation Quality Red -Slough/Fibrin Yes -Necrosis Amt Small (1-33%) -Necrotic Tissue Type Adherent Slough -Structure Exposed N/A -Texture (Milly-wound Skin Appearance) Assessed, Scarring -Moisture (Milly-wound Skin Appearance) Assessed,Dry/ Scaly -Color (Milly-wound Skin Appearance) Assessed -Temperature (Milly-wound Skin No Abnormality Appearance) (Pt Warm) -Tenderness on Palpation (Milly-wound No Skin Appearance) -Ulcer Cleansing Soap and Water -Foul Odor after Cleansing No -Anesthetic Used 5% Lidocaine Gel 16. RLE deluna cluster -Combined with other wound No -Current Size (cm) - Length 0.1 -Current Size (cm) - Width 0.1 -Current Size (cm) - Depth 0.1 -Total Square Cm 0.01 -Photo Taken Yes -Epithelialization Large 67-100% -Tunneling No -Undermining/Tunneling No -Circular Undermining No -Exudate Amt None Present -Wound Margin Flat & Intact -Granulation Amt Large (67-100%) -Granulation Quality Red -Slough/Fibrin Yes -Necrosis Amt Small (1-33%) -Necrotic Tissue Type Adherent Slough -Structure Exposed N/A -Texture (Milly-wound Skin Appearance) Assessed -Moisture (Milly-wound Skin Appearance) Assessed,Dry/ Scaly -Color (Milly-wound Skin Appearance) Assessed -Temperature (Milly-wound Skin No Abnormality Appearance) (Pt Warm) -Tenderness on Palpation (Milly-wound No Skin Appearance) -Ulcer Cleansing Rinsed/ Irrigated with Saline -Foul Odor after Cleansing No -Anesthetic Used 5% Lidocaine Gel 15. R plantar -Combined with other wound No -Current Size (cm) - Length 0.2 0.5 -Current Size (cm) - Width 0.4 0.7 -Current Size (cm) - Depth 0.1 0.1 -Total Square Cm 0.08 0.35 -Photo Taken Yes -Epithelialization Large 67-100% -Tunneling No -Undermining/Tunneling No -Circular Undermining No -Exudate Amt None Present Small -Exudate Type Serous -Wound Margin Fibrotic Scar, Flat & Intact Thickened Scar -Granulation Amt Medium (34-66%) Large (67-100%) -Granulation Quality [place] Red -Slough/Fibrin Yes -Necrosis Amt Small (1-33%) None Present (0 %) -Necrotic Tissue Type Adherent Slough -Structure Exposed N/A N/A -Texture (Milly-wound Skin Appearance) Assessed No Abnormality -Moisture (Milly-wound Skin Appearance) Assessed,Dry/ No Abnormality Scaly -Color (Milly-wound Skin Appearance) Assessed No Abnormality -Temperature (Milly-wound Skin No Abnormality No Abnormality Appearance) (Pt Warm) (Pt Warm) -Tenderness on Palpation (Milly-wound No No Skin Appearance) -Ulcer Cleansing Rinsed/ Rinsed/ Irrigated with Irrigated with Saline Saline -Foul Odor after Cleansing No -Anesthetic Used 5% Lidocaine 5% Lidocaine Gel Gel Lower Limb Edema Present NA WC - Nurse 2 - General Ulcer CM Notes Start: 08/24/25 08:09 Freq: Status: Active Protocol: Activity Type Activity Date Activity User E-sign Co-sign Detail Recorded Client Recorded Date Recorded By Document 08/24/25 09:05 [id number] 08/24/25 09:18 Document 08/29/25 10:40 [id number] 08/29/25 10:43 Edit Result 08/29/25 10:40 (1) [id number] 08/29/25 10:44 (1) 15. R plantar - Post Debridement (cm) - Length => 1.7 - Post Debridement (cm) - Width => 2.5 - Post Debridement (cm) - Depth => 0.2 - Total Square (Post) (cm) => 4.25 - Area of Debridement (cm) - Length => 1.7 - Area of Debridement (cm) - Width => 2.5 - Total Square (Area) (cm) => 4.25 08/24/25 08/29/25 09:05 10:40 Wound Center Nurse 2 #19 Right 4th toe -Time 09:06 -Correct Patient Yes Yes -Correct Side, Site, Position Yes No -Correct Procedure Yes No -Procedure Performed Yes No -Type of Procedure Debridement -Clinical Debridement Subcutaneous -Tissue Removed Subcutaneous -Post Debridement (cm) - Length 0.2 -Post Debridement (cm) - Width 0.1 -Post Debridement (cm) - Depth 0.3 -Total Square (Post) (cm) 0.02 -Area of Debridement (cm) - Length 0.2 -Area of Debridement (cm) - Width 0.1 -Total Square (Area) (cm) 0.02 -Tunneling No -Undermining/Tunneling No -Circular Undermining No -Wound/Ulcer Outcome Not Healed Amputation Anticipated -Ulcer Cleansing Rinsed/ Irrigated with Saline -Foul Odor after Cleansing No -Bioengineered Tissue No -Bleeding Controlled with Pressure -Treatment Response Procedure Tolerated Well -Offloading No -Debridement - Subq, 1st 20sq cm No 16. RLE deluna cluster -Time 09:08 -Correct Patient Yes -Correct Side, Site, Position Yes -Correct Procedure No -Procedure Performed No -Wound/Ulcer Outcome Healed- Epithelialized -Ulcer Cleansing Not Cleansed -Foul Odor after Cleansing No -Offloading No 15. R plantar -Time 09:07 10:41 -Correct Patient Yes Yes -Correct Side, Site, Position Yes Yes -Correct Procedure Yes Yes -Procedure Performed Yes Yes -Type of Procedure Debridement Debridement -Clinical Debridement Subcutaneous Subcutaneous -Tissue Removed Subcutaneous Subcutaneous -Post Debridement (cm) - Length 0.3 1.7 -Post Debridement (cm) - Width 1.5 2.5 -Post Debridement (cm) - Depth 0.1 0.2 -Total Square (Post) (cm) 0.45 4.25 -Area of Debridement (cm) - Length 0.3 1.7 -Area of Debridement (cm) - Width 1.5 2.5 -Total Square (Area) (cm) 0.45 4.25 -Tunneling No No -Undermining/Tunneling No No -Circular Undermining No No -Wound/Ulcer Outcome Not Healed Not Healed -Ulcer Cleansing Rinsed/ Rinsed/ Irrigated with Irrigated with Saline Saline -Foul Odor after Cleansing No No -Bioengineered Tissue No No -Bleeding Controlled with Pressure Pressure -Treatment Response Procedure Procedure Tolerated Well Tolerated Well -Offloading No Yes -Type of Offloading Surgical Shoe -Debridement - Subq, 1st 20sq cm Yes Yes Pain Scale: 0-10 Numeric Is Patient Pain Free? Yes Yes - Nurse 3 - General Ulcer D/C NN Start: 08/24/25 08:09 Freq: Status: Active Protocol: Activity Type Activity Date Activity User E-sign Co-sign Detail Recorded Client Recorded Date Recorded By Document 08/24/25 09:28 [id number] 08/24/25 09:29 Document 08/29/25 10:49 ND [id number] 08/29/25 10:53 ND 08/24/25 08/29/25 09:28 10:49 Wound Care Center Nurse 3 #19 Right 4th toe -Ulcer Cleansing Rinsed/ Irrigated with Saline -Foul Odor after Cleansing No -Primary Dressing Applied Promogran -Primary Dressing Covered/Secured with Dry Gauze, Secured with Tape -Promogran 1 15. R plantar -Ulcer Cleansing Rinsed/ Irrigated with Saline -Foul Odor after Cleansing No -Primary Dressing Applied Aquacel AG 4x4 -Other Dressing betadine -Primary Dressing Covered/Secured with Dry Gauze & Dry Gauze & Roll Gauze, Roll Gauze, Secured with Secured with Tape Tape -Aquacel AG 4x4 1 RLE -Tubular Bandage Single Layer -Size of Tubigrip Used Size D -Size D ($) 1 Pain Scale: 0-10 Numeric Is Patient Pain Free? Yes Yes - Visit Discharge Discharge Condition Stable Stable Ambulatory Status Ambulatory Ambulatory Transportation Private Auto Private Auto Medication Reconcilliation completed & Yes No provided to patient/care provider Clinical Summary of Care Provided Yes Yes Notes: darco shoe size medium Lab / Micro Data 08/29/25 11:22 08/29/25 11:22 Labs: Laboratory Results - last 24 hr 08/29/25 11:22: WBC 7.4, RBC 4.82, Hgb 13.6, Hct 39.9 L, MCV 82.8, MCH 28.2, MCHC 34.1, RDW Std Deviation 43.8, RDW Coeff of Yadi 14.7 H, Plt Count 244, MPV 10.5, ESR 6, Sodium 134, Potassium 4.3, Chloride 96 L, Carbon Dioxide 25.4, Anion Gap 13, BUN 16, Creatinine 0.77, Est GFR (MDRD) Non-Af 105, BUN/Creatinine Ratio 21.0 H, Glucose 295 H, Hemoglobin A1c 13.4 H, Calcium 9.3, C-React Prot Ext Range 9.33 H Assessment/Plan Assessment/Plan (1) Non-pressure chronic ulcer of other part of right foot with fat layer exposed: CODE(S): L97.512 - Non-pressure chronic ulcer of other part of right foot with fat layer exposed PLAN: Patient was examined and evaluated. All findings were discussed with the patient. All questions were answered to the patient's satisfaction. Excisional debridement down to and including subcutaneous tissue with a number 5 mm dermal curette as well as with a sterile pickup and #15 blade done without incident. Predebridement measurement was 1.0 x 0.9 x 0.1 cm. Postdebridement measurement is 1.7 x 2.5 x 0.2 cm. The right foot was wiped clean and patted dry. Culture was taken and will be sent off for microbiology culture and sensitivity. Will add ciprofloxacin onto the patient's already doxycycline to be taken twice daily for 2 weeks. The full-thickness wound was dressed with Betadine soaked gauze dry sterile dressing compression wrap was donned to the right lower extremity. Patient perform daily dressing changes. I did discuss with the patient that we will need to move forward with surgical intervention to remove the distal and intermediate phalanx of the right fourth digit for the concerns of chronic osteomyelitis as well as perform a distal shaft osteotomy to float the fifth metatarsal bone to provide internal offloading to heal the full-thickness wound. Discussed this while looking at the radiographs that showed also concern for midfoot Charcot foot deformity. I discussed with the patient that if he has ever had a hot swollen foot without a wound and he is unsure. We also discussed the patient's most recent A1c findings of 14.8% and discussed in great detail that this is a blood sugar of approximately 350 mg/dL. I stated to the patient that due to the concern for infection of the right foot we will need to move forward with surgery but he is also at great risk for wound dehiscence and nonhealing surgical site incision which she was also understanding of. I educated the patient to continue his most current blood sugar between 101 150 mg/dL which he was very understanding of. Patient was educated on signs symptoms of infection and to report to the emergency room at [facility] for evaluation. Follow-up at the wound care center with Dr. Colon in 1 week. (2) Chronic painful diabetic polyneuropathy: CODE(S): E11.42 - Type 2 diabetes mellitus with diabetic polyneuropathy (3) Osteomyelitis of fourth toe of right foot: CODE(S): M86.9 - Osteomyelitis, unspecified (4) Charcot joint of right foot: CODE(S): M14.671 - Charcot's joint, right ankle and foot
[2025-08-30 05:07] LABS: Prealbumin 16 mg/dL (10-36)
[2025-09-05 10:32] VITALS: BP 183/80; PULSE 62; RESP 14; TEMP 35.8
--- NOTE | 2025-09-05 11:17 | PCM.WC.PN ---
History of Present Illness Date of Service: 09/05/25 Chief Complaint: Ulcerations of the right pretibial and lateral calf, right lateral foot History of Wound: David is a 54 year old male that presents to the wound center for evaluation and treatment of an ulcer of his right foot. The ulcer appeared approximately a week ago. He noticed blood coming from his shoe and there was a blister that had broken open. He has been applying gauze and washing with soap daily to treat the ulcer and was seen at urgent care and started on doxycycline. A wound culture was taken and results showed multiple bacteria with Pseudomonas, Staph and Strep. Anaerobic culture is still pending. He denies systemic symptoms such as fever, chills, erythema, odor. He is struggling financially to afford supplies, medications and taking care of his home and financial responsibilities. 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 His last A1C was 01/2025 and was 13.2 %. He is a very poorly controlled diabetic on insulin. He does not have diabetic shoes. He does see Dr. Ozuna for podiatry for diabetic foot exams. 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 He also had repeat venous testing 04/08/23 which showed incompetence and vascular surgery was considered but was not done at that time. He has not been able to place compression because he is unable to bend to pull on compression stockings due to arthritis in his back. He is not able to wrap with RADHA bandages either. Circaids were tried previously but he was unable to do this as well. He has been wearing tubigrips for compression. He states he still has issues getting them on at times when his back is flared up. He has chronic lymphedema. Progress of Wound: Stable full-thickness wound right plantar foot Subjective Subjective Patient is a 54-year-old diabetic male presented clinic today follow-up evaluation of full-thickness wound to the plantar aspect of the right foot. Patient has been compliant with dressing changes admits improvement to the wound. He did get his labs done from [facility] that shows evidence of mild improvement to the A1c. Educated the patient that he needs to get the A1c around 7 which she is understanding of. Recommended following up with primary to get on possible different blood sugar lowering medication when he was understanding of. Cultures did come back that show evidence of 2 microbial growth and the patient will be placed on additional antibiotic from his already ciprofloxacin. Patient is very grateful for his care. He denies trauma. Denies constitutional symptoms. No other pedal complaints at this time. Objective Data Objective Data Vital Signs: Vital Signs Temp Pulse Resp BP 96.5 F L 62 14 183/80 H 09/05/25 10:32 09/05/25 10:32 09/05/25 10:32 09/05/25 10:32 Lab / Micro Data 08/29/25 11:22 08/29/25 11:22 Micro: Microbiology 08/29/25 10:40 Wound - Right Foot Gram Stain - Final 08/29/25 10:40 Wound - Right Foot Wound Culture - Final Streptococcus agalactiae (B) Staphylococcus aureus 08/29/25 10:40 Wound - Right Foot Anaerobic Culture - Final No anaerobic bacteria isolated. Physical Exam Narrative Vascular: DP and PT pulse are palpable to the right lower extremity. CFT is brisk. Skin temperature gradient is warm to warm from proximal ankles to distal digits with mild focal increase appreciated to the lateral distal right foot. Blanchable erythema is appreciated to the distal lateral right foot. Neurological: Light touch is intact. Protective station is absent. Dermatological: Dactylitis appreciated to the right fourth digit, stable. Full-thickness wound to the plantar subfifth metatarsal head measuring 1.2 x 1.3 x 0.1 cm wound base is fibrogranular in nature with some evidence of necrosis. Negative probe to bone Excisional debridement down to and including subcutaneous tissue with a number 5 mm dermal curette as well as with a sterile pickup and #15 blade done without incident. Predebridement measurement was 1.0 x 1.1 x 0.1 cm. Postdebridement measurement is 1.2 x 1.3 x 0.1 cm. Muscle skeletal: Mild rocker-bottom foot type is appreciated. There is concern for Charcot deformity to the right lower extremity when compared to the left. No pain on palpation to the right fourth digit or full-thickness wound to the plantar aspect of the right foot. Debridement Note Debridement Note Debridement Free Text: Excisional debridement down to and including subcutaneous tissue with a number 5 mm dermal curette as well as with a sterile pickup and #15 blade done without incident. Predebridement measurement was 1.0 x 1.1 x 0.1 cm. Postdebridement measurement is 1.2 x 1.3 x 0.1 cm. Post-Debridement Measurements and Additional Note: Post-Debridement Measurements/Treatment WC - Nurse 1 - General Ulcer Assessment Start: 08/24/25 08:09 Freq: Status: Active Protocol: MART Activity Type Activity Date Activity User E-sign Co-sign Detail Recorded Client Recorded Date Recorded By Document 08/24/25 08:09 JF [id number] 08/24/25 08:18 JF Document 08/29/25 10:16 CP [id number] 08/29/25 10:24 CP Document 09/05/25 10:32 ML [id number] 09/05/25 10:34 ML 08/24/25 08/29/25 09/05/25 08:09 10:16 10:32 WC - Today's Visit Information Type of service Follow-up Visit Follow-up Visit Follow-up Visit (Physician/[employer] (Physician/[employer] (Physician/[employer] ) ) ) Arrival Mode Ambulatory Ambulatory Ambulatory Patient Identification Verified (Name & Yes Yes Yes ) Patient Requires Transmission-Based No No Precautions Finger Stick Blood Sugar(mg/dl) (if 110 indicated): Blood Sugar Stated by Patient Vital Signs Temperature (97.8 F-99.1 F) 96.6 F L 96.9 F L 96.5 F L Temperature Source Temporal Temporal Temporal Pulse Rate (60-100) 89 62 Pulse Location Monitor Monitor Respiratory Rate (12-18) 16 16 14 Respiratory rate source Observation Observation Observation Blood Pressure (90/60-120/80) 154/99 H 183/80 H Blood Pressure Mean (mm Hg) 117 114 Source Monitor Monitor Position Sitting Sitting Blood Pressure Location Left Arm Right Forearm History Since Last Visit- (Skip if this is Patient's initial visit) Have you changed medications since your Yes No No last visit? Any new allergies or adverse reactions No No No Had a fall/change in ADL's that may No No No increase risk of falls Signs or symptoms of abuse and/or No No No neglect since last visit Have you been in the hospital since your No No No last visit? Has dressing in place as prescribed Yes Yes Yes Has compression in place as prescribed Yes N/A Yes Has offloadiing in place as prescribed N/A No N/A Experienced any changes in pain level or No No No management Left Footwear Regular Shoe Right Footwear Regular Shoe Pain Scale: 0-10 Numeric Is Patient Pain Free? Yes No Yes WC - Nurse 1 - General Ulcer Measurement Start: 08/24/25 08:09 Freq: Status: Active Protocol: Activity Type Activity Date Activity User E-sign Co-sign Detail Recorded Client Recorded Date Recorded By Document 08/24/25 08:09 JF [id number] 08/24/25 08:18 JF Document 08/29/25 10:16 CP [id number] 08/29/25 10:24 CP Document 09/05/25 10:32 ML [id number] 09/05/25 10:34 ML 08/24/25 08/29/25 09/05/25 08:09 10:16 10:32 Wound Center Nurse 1 #19 Right 4th toe -Combined with other wound No -Current Size (cm) - Length 0.1 0.5 -Current Size (cm) - Width 0.1 0.5 -Current Size (cm) - Depth 0.1 0.1 -Total Square Cm 0.01 0.25 -Photo Taken Yes -Epithelialization Large 67-100% -Tunneling No -Undermining/Tunneling No -Circular Undermining No -Exudate Amt None Present None Present -Wound Margin Fibrotic Scar, Thickened Scar -Granulation Amt None Present (0 %) -Slough/Fibrin Yes -Necrosis Amt Large (67-100%) -Necrotic Tissue Type Adherent Slough -Structure Exposed N/A N/A -Texture (Milly-wound Skin Appearance) Assessed, No Abnormality Scarring -Moisture (Milly-wound Skin Appearance) Assessed,Dry/ No Abnormality Scaly -Color (Milly-wound Skin Appearance) Assessed No Abnormality -Temperature (Milly-wound Skin No Abnormality No Abnormality Appearance) (Pt Warm) (Pt Warm) -Tenderness on Palpation (Milly-wound No No Skin Appearance) -Ulcer Cleansing Not Cleansed Rinsed/ Irrigated with Saline -Foul Odor after Cleansing No -Anesthetic Used 5% Lidocaine 5% Lidocaine Gel Gel 17. left foot cluster -Combined with other wound No -Current Size (cm) - Length 0.2 -Current Size (cm) - Width 0.4 -Current Size (cm) - Depth 0.1 -Total Square Cm 0.08 -Photo Taken Yes -Epithelialization Medium 34-66% -Tunneling No -Undermining/Tunneling No -Circular Undermining No -Exudate Amt None Present -Wound Margin Flat & Intact -Granulation Amt Large (67-100%) -Granulation Quality Red -Slough/Fibrin Yes -Necrosis Amt Small (1-33%) -Necrotic Tissue Type Adherent Slough -Structure Exposed N/A -Texture (Milly-wound Skin Appearance) Assessed, Scarring -Moisture (Milly-wound Skin Appearance) Assessed,Dry/ Scaly -Color (Milly-wound Skin Appearance) Assessed -Temperature (Milly-wound Skin No Abnormality Appearance) (Pt Warm) -Tenderness on Palpation (Milly-wound No Skin Appearance) -Ulcer Cleansing Soap and Water -Foul Odor after Cleansing No -Anesthetic Used 5% Lidocaine Gel 16. RLE deluna cluster -Combined with other wound No -Current Size (cm) - Length 0.1 -Current Size (cm) - Width 0.1 -Current Size (cm) - Depth 0.1 -Total Square Cm 0.01 -Photo Taken Yes -Epithelialization Large 67-100% -Tunneling No -Undermining/Tunneling No -Circular Undermining No -Exudate Amt None Present -Wound Margin Flat & Intact -Granulation Amt Large (67-100%) -Granulation Quality Red -Slough/Fibrin Yes -Necrosis Amt Small (1-33%) -Necrotic Tissue Type Adherent Slough -Structure Exposed N/A -Texture (Milly-wound Skin Appearance) Assessed -Moisture (Milly-wound Skin Appearance) Assessed,Dry/ Scaly -Color (Milly-wound Skin Appearance) Assessed -Temperature (Milly-wound Skin No Abnormality Appearance) (Pt Warm) -Tenderness on Palpation (Milly-wound No Skin Appearance) -Ulcer Cleansing Rinsed/ Irrigated with Saline -Foul Odor after Cleansing No -Anesthetic Used 5% Lidocaine Gel 15. R plantar -Combined with other wound No -Current Size (cm) - Length 0.2 0.5 1 -Current Size (cm) - Width 0.4 0.7 0.8 -Current Size (cm) - Depth 0.1 0.1 0.1 -Total Square Cm 0.08 0.35 0.8 -Photo Taken Yes -Epithelialization Large 67-100% -Tunneling No -Undermining/Tunneling No -Circular Undermining No -Exudate Amt None Present Small Medium -Exudate Type Serous Serosanguineous -Wound Margin Fibrotic Scar, Flat & Intact Thickened Scar -Granulation Amt Medium (34-66%) Large (67-100%) -Granulation Quality [place] Red -Slough/Fibrin Yes -Necrosis Amt Small (1-33%) None Present (0 %) -Necrotic Tissue Type Adherent Slough Adherent Slough -Structure Exposed N/A N/A -Texture (Milly-wound Skin Appearance) Assessed No Abnormality Assessed -Moisture (Milly-wound Skin Appearance) Assessed,Dry/ No Abnormality Assessed Scaly -Color (Milly-wound Skin Appearance) Assessed No Abnormality Assessed -Temperature (Milly-wound Skin No Abnormality No Abnormality Appearance) (Pt Warm) (Pt Warm) -Tenderness on Palpation (Milly-wound No No No Skin Appearance) -Ulcer Cleansing Rinsed/ Rinsed/ Rinsed/ Irrigated with Irrigated with Irrigated with Saline Saline Saline -Foul Odor after Cleansing No -Anesthetic Used 5% Lidocaine 5% Lidocaine 5% Lidocaine Gel Gel Gel Lower Limb Edema Present NA - Nurse 2 - General Ulcer CM Notes Start: 08/24/25 08:09 Freq: Status: Active Protocol: Activity Type Activity Date Activity User E-sign Co-sign Detail Recorded Client Recorded Date Recorded By Document 08/24/25 09:05 [id number] 08/24/25 09:18 Document 08/29/25 10:40 [id number] 08/29/25 10:43 Edit Result 08/29/25 10:40 (1) [id number] 08/29/25 10:44 Document 09/05/25 10:57 [id number] 09/05/25 11:03 (1) 15. R plantar - Post Debridement (cm) - Length => 1.7 - Post Debridement (cm) - Width => 2.5 - Post Debridement (cm) - Depth => 0.2 - Total Square (Post) (cm) => 4.25 - Area of Debridement (cm) - Length => 1.7 - Area of Debridement (cm) - Width => 2.5 - Total Square (Area) (cm) => 4.25 08/24/25 08/29/25 09/05/25 09:05 10:40 10:57 Wound Center Nurse 2 #19 Right 4th toe -Time 09:06 -Correct Patient Yes Yes -Correct Side, Site, Position Yes No -Correct Procedure Yes No -Procedure Performed Yes No -Type of Procedure Debridement -Clinical Debridement Subcutaneous -Tissue Removed Subcutaneous -Post Debridement (cm) - Length 0.2 -Post Debridement (cm) - Width 0.1 -Post Debridement (cm) - Depth 0.3 -Total Square (Post) (cm) 0.02 -Area of Debridement (cm) - Length 0.2 -Area of Debridement (cm) - Width 0.1 -Total Square (Area) (cm) 0.02 -Tunneling No -Undermining/Tunneling No -Circular Undermining No -Wound/Ulcer Outcome Not Healed Amputation Anticipated -Ulcer Cleansing Rinsed/ Irrigated with Saline -Foul Odor after Cleansing No -Bioengineered Tissue No -Bleeding Controlled with Pressure -Treatment Response Procedure Tolerated Well -Offloading No -Debridement - Subq, 1st 20sq cm No 16. RLE deluna cluster -Time 09:08 -Correct Patient Yes -Correct Side, Site, Position Yes -Correct Procedure No -Procedure Performed No -Wound/Ulcer Outcome Healed- Epithelialized -Ulcer Cleansing Not Cleansed -Foul Odor after Cleansing No -Offloading No 15. R plantar -Time 09:07 10:41 10:59 -Correct Patient Yes Yes Yes -Correct Side, Site, Position Yes Yes Yes -Correct Procedure Yes Yes Yes -Procedure Performed Yes Yes Yes -Type of Procedure Debridement Debridement Debridement -Clinical Debridement Subcutaneous Subcutaneous Subcutaneous -Tissue Removed Subcutaneous Subcutaneous Subcutaneous -Post Debridement (cm) - Length 0.3 1.7 1.2 -Post Debridement (cm) - Width 1.5 2.5 1.3 -Post Debridement (cm) - Depth 0.1 0.2 0.1 -Total Square (Post) (cm) 0.45 4.25 1.56 -Area of Debridement (cm) - Length 0.3 1.7 1.2 -Area of Debridement (cm) - Width 1.5 2.5 1.3 -Total Square (Area) (cm) 0.45 4.25 1.56 -Tunneling No No No -Undermining/Tunneling No No No -Circular Undermining No No No -Wound/Ulcer Outcome Not Healed Not Healed Not Healed -Ulcer Cleansing Rinsed/ Rinsed/ Rinsed/ Irrigated with Irrigated with Irrigated with Saline Saline Saline -Foul Odor after Cleansing No No No -Bioengineered Tissue No No No -Bleeding Controlled with Pressure Pressure Pressure -Treatment Response Procedure Procedure Procedure Tolerated Well Tolerated Well Tolerated Well -Offloading No Yes Yes -Type of Offloading Surgical Shoe Surgical Shoe -Debridement - Subq, 1st 20sq cm Yes Yes Yes Pain Scale: 0-10 Numeric Is Patient Pain Free? Yes Yes Yes - Nurse 3 - General Ulcer D/C NN Start: 08/24/25 08:09 Freq: Status: Active Protocol: Activity Type Activity Date Activity User E-sign Co-sign Detail Recorded Client Recorded Date Recorded By Document 08/24/25 09:28 [id number] 08/24/25 09:29 Document 08/29/25 10:49 NM [id number] 08/29/25 10:53 NM Document 09/05/25 11:03 [id number] 09/05/25 11:04 08/24/25 08/29/25 09/05/25 09:28 10:49 11:03 Wound Care Center Nurse 3 #19 Right 4th toe -Ulcer Cleansing Rinsed/ Irrigated with Saline -Foul Odor after Cleansing No -Primary Dressing Applied Promogran -Primary Dressing Covered/Secured with Dry Gauze, Secured with Tape -Promogran 1 15. R plantar -Ulcer Cleansing Rinsed/ Rinsed/ Irrigated with Irrigated with Saline Saline -Foul Odor after Cleansing No No -Primary Dressing Applied Aquacel AG 4x4 -Other Dressing betadine betadine soaked gauze -Primary Dressing Covered/Secured with Dry Gauze & Dry Gauze & Dry Gauze & Roll Gauze, Roll Gauze, Roll Gauze, Secured with Secured with Secured with Tape Tape Tape -Aquacel AG 4x4 1 RLE -Tubular Bandage Single Layer -Size of Tubigrip Used Size D -Size D ($) 1 Pain Scale: 0-10 Numeric Is Patient Pain Free? Yes Yes Yes - Visit Discharge Discharge Condition Stable Stable Stable Ambulatory Status Ambulatory Ambulatory Ambulatory Transportation Private Auto Private Auto Private Auto Medication Reconcilliation completed & Yes No Yes provided to patient/care provider Clinical Summary of Care Provided Yes Yes Yes Notes: darco shoe size medium Assessment/Plan Assessment/Plan (1) Non-pressure chronic ulcer of other part of right foot with fat layer exposed: CODE(S): L97.512 - Non-pressure chronic ulcer of other part of right foot with fat layer exposed PLAN: Patient was examined and evaluated. All findings were discussed with the patient. All questions were answered to the patient's satisfaction. Excisional debridement down to and including subcutaneous tissue with a number 5 mm dermal curette as well as with a sterile pickup and #15 blade done without incident. Predebridement measurement was 1.0 x 1.1 x 0.1 cm. Postdebridement measurement is 1.2 x 1.3 x 0.1 cm. The right foot was wiped clean and patted dry. Betadine soaked gauze followed by dry sterile dressing and compression wrap was donned to right lower extremity. Review of the patient's culture and sensitivity showed additional bacterial growth and the patient we placed on doxycycline 100 mg twice daily. He will continue his ciprofloxacin as prescribed. Patient will continue daily dressing changes as discussed. We will fax a form over to the antibiotic for authorization with the patient's insurance for custom diabetic shoes as well as inserts to help offload and support the patient's bilateral lower extremity. Follow-up at the wound care center with Dr. Colon in 1 week. (2) Charcot joint of right foot: CODE(S): M14.671 - Charcot's joint, right ankle and foot (3) Osteomyelitis of fourth toe of right foot: CODE(S): M86.9 - Osteomyelitis, unspecified
--- NOTE | 2025-09-06 09:25 | WC ---
PHOTO-RIGHT PLANTAR 09/05/25
[2025-09-12 08:26] VITALS: BP 165/93; PULSE 91; RESP 18; TEMP 36.2
--- NOTE | 2025-09-13 09:27 | WC ---
PHOTO: RIGHT PLANTAR 09/12/25
--- NOTE | 2025-09-15 15:17 | PN.PCM_ITS ---
History of Present Illness Date of Service: 09/12/25 Chief Complaint: Ulcerations of the right pretibial and lateral calf, right lateral foot History of Wound: David is a 54 year old male that presents to the wound center for evaluation and treatment of an ulcer of his right foot. The ulcer appeared approximately a week ago. He noticed blood coming from his shoe and there was a blister that had broken open. He has been applying gauze and washing with soap daily to treat the ulcer and was seen at urgent care and started on doxycycline. A wound culture was taken and results showed multiple bacteria with Pseudomonas, Staph and Strep. Anaerobic culture is still pending. He denies systemic symptoms such as fever, chills, erythema, odor. He is struggling financially to afford supplies, medications and taking care of his home and financial responsibilities. 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 His last A1C was 01/2025 and was 13.2 %. He is a very poorly controlled diabetic on insulin. He does not have diabetic shoes. He does see Dr. Ozuna for podiatry for diabetic foot exams. 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 He also had repeat venous testing 04/08/23 which showed incompetence and vascular surgery was considered but was not done at that time. He has not been able to place compression because he is unable to bend to pull on compression stockings due to arthritis in his back. He is not able to wrap with RADHA bandages either. Circaids were tried previously but he was unable to do this as well. He has been wearing tubigrips for compression. He states he still has issues getting them on at times when his back is flared up. He has chronic lymphedema. Progress of Wound: Stable full-thickness wound right plantar foot Subjective Subjective Patient is a 54-year-old male present to clinic today follow-up evaluation of full-thickness wound to plantar aspect of the right foot. Patient will be attending [facility] for evaluation for diabetic shoes and custom inserts to offload the prominence to the right foot. Patient also has a new wound on his right deluna secondary to trauma. He is unsure how it happened. His blood sugar is more controlled however his A1c is still high. He denies constitutional symptoms. No other pedal complaints at this time. Objective Data Objective Data Vital Signs: Vital Signs Temp Pulse Resp BP 97.1 F L 91 18 165/93 H 09/12/25 08:26 09/12/25 08:26 09/12/25 08:26 09/12/25 08:26 Lab / Micro Data 08/29/25 11:22 08/29/25 11:22 Micro: Microbiology 08/29/25 10:40 Wound - Right Foot Gram Stain - Final 08/29/25 10:40 Wound - Right Foot Wound Culture - Final Streptococcus agalactiae (B) Staphylococcus aureus 08/29/25 10:40 Wound - Right Foot Anaerobic Culture - Final No anaerobic bacteria isolated. Physical Exam Narrative Vascular: DP and PT pulses are palpable to the right lower extremity. CFT is brisk. Concentric rate is 1 to warm from proximal ankle to distal digits to the right lower extremity. Blanchable erythema to anterior right leg. Neurological: Light touch is intact. Protective station is absent. Dermatological Full-thickness wound to the plantar subfifth metatarsal head measuring 1.2 x 1.5 x 0.1 cm. Wound base is fibrogranular in nature. Negative probe to bone. New full-thickness wound to anterior right deluna measuring 1.5 x 1.2 x 0.1 cm. Excisional debridement down to and including subcutaneous tissue with a number 5 mm dermal curette done without incident. Predebridement measurement was 1.1 x 1.3 x 0.1 cm. Postdebridement measurement is 1.2 x 1.5 x 0.1 cm. Excisional debridement down to and including subcutaneous tissue with a number 5 mm dermal curette to the anterior right leg secondary to trauma. This was done without incident.. Right measurement was eschar. Posterior measures 1.5 x 1.2 x 0.1 cm. Muscle skeletal: No pain to palpation of full-thickness wounds to right lower extremity. No pain with calf pressure. Debridement Note Debridement Note Debridement Free Text: Excisional debridement down to and including subcutaneous tissue with a number 5 mm dermal curette done without incident. Predebridement measurement was 1.1 x 1.3 x 0.1 cm. Postdebridement measurement is 1.2 x 1.5 x 0.1 cm. Excisional debridement down to and including subcutaneous tissue with a number 5 mm dermal curette to the anterior right leg secondary to trauma. This was done without incident.. Right measurement was eschar. Posterior measures 1.5 x 1.2 x 0.1 cm. Post-Debridement Measurements and Additional Note: Post-Debridement Measurements/Treatment WC - Nurse 1 - General Ulcer Assessment Start: 08/24/25 08:09 Freq: Status: Active Protocol: MART Activity Type Activity Date Activity User E-sign Co-sign Detail Recorded Client Recorded Date Recorded By Document 08/24/25 08:09 JF [id number] 08/24/25 08:18 JF Document 08/29/25 10:16 CP [id number] 08/29/25 10:24 CP Document 09/05/25 10:32 ML [id number] 09/05/25 10:34 ML Document 09/12/25 08:26 RB [id number] 09/12/25 08:28 RB 08/24/25 08/29/25 09/05/25 08:09 10:16 10:32 WC - Today's Visit Information Type of service Follow-up Visit Follow-up Visit Follow-up Visit (Physician/STACKER DRIVER (Physician/STACKER DRIVER (Physician/STACKER DRIVER ) ) ) Arrival Mode Ambulatory Ambulatory Ambulatory Transfer Assistance Patient Identification Verified (Name & Yes Yes Yes ) Patient Requires Transmission-Based No No Precautions Finger Stick Blood Sugar(mg/dl) (if 110 indicated): Blood Sugar Stated by Patient Vital Signs Temperature (97.8 F-99.1 F) 96.6 F L 96.9 F L 96.5 F L Temperature Source Temporal Temporal Temporal Pulse Rate (60-100) 89 62 Pulse Location Monitor Monitor Respiratory Rate (12-18) 16 16 14 Respiratory rate source Observation Observation Observation Blood Pressure (90/60-120/80) 154/99 H 183/80 H Blood Pressure Mean (mm Hg) 117 114 Source Monitor Monitor Position Sitting Sitting Blood Pressure Location Left Arm Right Forearm History Since Last Visit- (Skip if this is Patient's initial visit) Have you changed medications since your Yes No No last visit? Any new allergies or adverse reactions No No No Had a fall/change in ADL's that may No No No increase risk of falls Signs or symptoms of abuse and/or No No No neglect since last visit Have you been in the hospital since your No No No last visit? Has dressing in place as prescribed Yes Yes Yes Has compression in place as prescribed Yes N/A Yes Has offloadiing in place as prescribed N/A No N/A Experienced any changes in pain level or No No No management Left Footwear Regular Shoe Right Footwear Regular Shoe Pain Scale: 0-10 Numeric Is Patient Pain Free? Yes No Yes 09/12/25 08:26 - Today's Visit Information Type of service Follow-up Visit (Physician/STACKER DRIVER ) Arrival Mode Ambulatory Transfer Assistance None Patient Identification Verified (Name & Yes ) Patient Requires Transmission-Based No Precautions Finger Stick Blood Sugar(mg/dl) (if indicated): Blood Sugar Vital Signs Temperature (97.8 F-99.1 F) 97.1 F L Temperature Source Temporal Pulse Rate (60-100) 91 Pulse Location Monitor Respiratory Rate (12-18) 18 Respiratory rate source Observation Blood Pressure (90/60-120/80) 165/93 H Blood Pressure Mean (mm Hg) 117 Source Monitor Position Semi-Fowlers Blood Pressure Location Left Arm History Since Last Visit- (Skip if this is Patient's initial visit) Have you changed medications since your No last visit? Any new allergies or adverse reactions No Had a fall/change in ADL's that may No increase risk of falls Signs or symptoms of abuse and/or No neglect since last visit Have you been in the hospital since your No last visit? Has dressing in place as prescribed Yes Has compression in place as prescribed N/A Has offloadiing in place as prescribed N/A Experienced any changes in pain level or No management Left Footwear Regular Shoe Right Footwear Regular Shoe Pain Scale: 0-10 Numeric Is Patient Pain Free? Yes - Nurse 1 - General Ulcer Measurement Start: 08/24/25 08:09 Freq: Status: Active Protocol: Activity Type Activity Date Activity User E-sign Co-sign Detail Recorded Client Recorded Date Recorded By Document 08/24/25 08:09 JF [id number] 08/24/25 08:18 JF Document 08/29/25 10:16 CP [id number] 08/29/25 10:24 CP Document 09/05/25 10:32 ML [id number] 09/05/25 10:34 ML Document 09/12/25 08:26 RB [id number] 09/12/25 08:28 RB 08/24/25 08/29/25 09/05/25 08:09 10:16 10:32 Wound Center Nurse 1 #19 Right 4th toe -Combined with other wound No -Current Size (cm) - Length 0.1 0.5 -Current Size (cm) - Width 0.1 0.5 -Current Size (cm) - Depth 0.1 0.1 -Total Square Cm 0.01 0.25 -Photo Taken Yes -Epithelialization Large 67-100% -Tunneling No -Undermining/Tunneling No -Circular Undermining No -Exudate Amt None Present None Present -Wound Margin Fibrotic Scar, Thickened Scar -Granulation Amt None Present (0 %) -Slough/Fibrin Yes -Necrosis Amt Large (67-100%) -Necrotic Tissue Type Adherent Slough -Structure Exposed N/A N/A -Texture (Milly-wound Skin Appearance) Assessed, No Abnormality Scarring -Moisture (Milly-wound Skin Appearance) Assessed,Dry/ No Abnormality Scaly -Color (Milly-wound Skin Appearance) Assessed No Abnormality -Temperature (Milly-wound Skin No Abnormality No Abnormality Appearance) (Pt Warm) (Pt Warm) -Tenderness on Palpation (Milly-wound No No Skin Appearance) -Ulcer Cleansing Not Cleansed Rinsed/ Irrigated with Saline -Foul Odor after Cleansing No -Anesthetic Used 5% Lidocaine 5% Lidocaine Gel Gel 17. left foot cluster -Combined with other wound No -Current Size (cm) - Length 0.2 -Current Size (cm) - Width 0.4 -Current Size (cm) - Depth 0.1 -Total Square Cm 0.08 -Photo Taken Yes -Epithelialization Medium 34-66% -Tunneling No -Undermining/Tunneling No -Circular Undermining No -Exudate Amt None Present -Wound Margin Flat & Intact -Granulation Amt Large (67-100%) -Granulation Quality Red -Slough/Fibrin Yes -Necrosis Amt Small (1-33%) -Necrotic Tissue Type Adherent Slough -Structure Exposed N/A -Texture (Milly-wound Skin Appearance) Assessed, Scarring -Moisture (Milly-wound Skin Appearance) Assessed,Dry/ Scaly -Color (Milly-wound Skin Appearance) Assessed -Temperature (Milly-wound Skin No Abnormality Appearance) (Pt Warm) -Tenderness on Palpation (Milly-wound No Skin Appearance) -Ulcer Cleansing Soap and Water -Foul Odor after Cleansing No -Anesthetic Used 5% Lidocaine Gel 16. RLE deluna cluster -Combined with other wound No -Current Size (cm) - Length 0.1 -Current Size (cm) - Width 0.1 -Current Size (cm) - Depth 0.1 -Total Square Cm 0.01 -Photo Taken Yes -Epithelialization Large 67-100% -Tunneling No -Undermining/Tunneling No -Circular Undermining No -Exudate Amt None Present -Wound Margin Flat & Intact -Granulation Amt Large (67-100%) -Granulation Quality Red -Slough/Fibrin Yes -Necrosis Amt Small (1-33%) -Necrotic Tissue Type Adherent Slough -Structure Exposed N/A -Texture (Milly-wound Skin Appearance) Assessed -Moisture (Milly-wound Skin Appearance) Assessed,Dry/ Scaly -Color (Milly-wound Skin Appearance) Assessed -Temperature (Milly-wound Skin No Abnormality Appearance) (Pt Warm) -Tenderness on Palpation (Milly-wound No Skin Appearance) -Ulcer Cleansing Rinsed/ Irrigated with Saline -Foul Odor after Cleansing No -Anesthetic Used 5% Lidocaine Gel 15. R plantar -Combined with other wound No -Current Size (cm) - Length 0.2 0.5 1 -Current Size (cm) - Width 0.4 0.7 0.8 -Current Size (cm) - Depth 0.1 0.1 0.1 -Total Square Cm 0.08 0.35 0.8 -Photo Taken Yes -Epithelialization Large 67-100% -Tunneling No -Undermining/Tunneling No -Circular Undermining No -Exudate Amt None Present Small Medium -Exudate Type Serous Serosanguineous -Wound Margin Fibrotic Scar, Flat & Intact Thickened Scar -Granulation Amt Medium (34-66%) Large (67-100%) -Granulation Quality [place] Red -Slough/Fibrin Yes -Necrosis Amt Small (1-33%) None Present (0 %) -Necrotic Tissue Type Adherent Slough Adherent Slough -Structure Exposed N/A N/A -Texture (Milly-wound Skin Appearance) Assessed No Abnormality Assessed -Moisture (Milly-wound Skin Appearance) Assessed,Dry/ No Abnormality Assessed Scaly -Color (Milly-wound Skin Appearance) Assessed No Abnormality Assessed -Temperature (Milly-wound Skin No Abnormality No Abnormality Appearance) (Pt Warm) (Pt Warm) -Tenderness on Palpation (Milly-wound No No No Skin Appearance) -Ulcer Cleansing Rinsed/ Rinsed/ Rinsed/ Irrigated with Irrigated with Irrigated with Saline Saline Saline -Foul Odor after Cleansing No -Anesthetic Used 5% Lidocaine 5% Lidocaine 5% Lidocaine Gel Gel Gel Lower Limb Edema Present NA 09/12/25 08:26 Wound Center Nurse 1 #19 Right 4th toe -Combined with other wound -Current Size (cm) - Length -Current Size (cm) - Width -Current Size (cm) - Depth -Total Square Cm -Photo Taken -Epithelialization -Tunneling -Undermining/Tunneling -Circular Undermining -Exudate Amt -Wound Margin -Granulation Amt -Slough/Fibrin -Necrosis Amt -Necrotic Tissue Type -Structure Exposed -Texture (Milly-wound Skin Appearance) -Moisture (Milly-wound Skin Appearance) -Color (Milly-wound Skin Appearance) -Temperature (Milly-wound Skin Appearance) -Tenderness on Palpation (Milly-wound Skin Appearance) -Ulcer Cleansing -Foul Odor after Cleansing -Anesthetic Used 17. left foot cluster -Combined with other wound -Current Size (cm) - Length -Current Size (cm) - Width -Current Size (cm) - Depth -Total Square Cm -Photo Taken -Epithelialization -Tunneling -Undermining/Tunneling -Circular Undermining -Exudate Amt -Wound Margin -Granulation Amt -Granulation Quality -Slough/Fibrin -Necrosis Amt -Necrotic Tissue Type -Structure Exposed -Texture (Milly-wound Skin Appearance) -Moisture (Milly-wound Skin Appearance) -Color (Milly-wound Skin Appearance) -Temperature (Milly-wound Skin Appearance) -Tenderness on Palpation (Milly-wound Skin Appearance) -Ulcer Cleansing -Foul Odor after Cleansing -Anesthetic Used 16. RLE deluna cluster -Combined with other wound -Current Size (cm) - Length -Current Size (cm) - Width -Current Size (cm) - Depth -Total Square Cm -Photo Taken -Epithelialization -Tunneling -Undermining/Tunneling -Circular Undermining -Exudate Amt -Wound Margin -Granulation Amt -Granulation Quality -Slough/Fibrin -Necrosis Amt -Necrotic Tissue Type -Structure Exposed -Texture (Milly-wound Skin Appearance) -Moisture (Milly-wound Skin Appearance) -Color (Milly-wound Skin Appearance) -Temperature (Milly-wound Skin Appearance) -Tenderness on Palpation (Milly-wound Skin Appearance) -Ulcer Cleansing -Foul Odor after Cleansing -Anesthetic Used 15. R plantar -Combined with other wound No -Current Size (cm) - Length 1 -Current Size (cm) - Width 1 -Current Size (cm) - Depth 0.1 -Total Square Cm 1 -Photo Taken Yes -Epithelialization -Tunneling No -Undermining/Tunneling No -Circular Undermining No -Exudate Amt Medium -Exudate Type Serosanguineous -Wound Margin Thickened & Rolled Under -Granulation Amt Medium (34-66%) -Granulation Quality [place] -Slough/Fibrin Yes -Necrosis Amt Small (1-33%) -Necrotic Tissue Type Adherent Slough -Structure Exposed N/A -Texture (Milly-wound Skin Appearance) Callus -Moisture (Milly-wound Skin Appearance) Assessed -Color (Milly-wound Skin Appearance) Assessed -Temperature (Milly-wound Skin No Abnormality Appearance) (Pt Warm) -Tenderness on Palpation (Milly-wound No Skin Appearance) -Ulcer Cleansing Wound Cleanser -Foul Odor after Cleansing No -Anesthetic Used 5% Lidocaine Gel Lower Limb Edema Present WC - Nurse 2 - General Ulcer CM Notes Start: 08/24/25 08:09 Freq: Status: Active Protocol: Activity Type Activity Date Activity User E-sign Co-sign Detail Recorded Client Recorded Date Recorded By Document 08/24/25 09:05 [id number] 08/24/25 09:18 Document 08/29/25 10:40 [id number] 08/29/25 10:43 Edit Result 08/29/25 10:40 (1) [id number] 08/29/25 10:44 Document 09/05/25 10:57 [id number] 09/05/25 11:03 Document 09/12/25 09:07 [id number] 09/12/25 09:11 (1) 15. R plantar - Post Debridement (cm) - Length => 1.7 - Post Debridement (cm) - Width => 2.5 - Post Debridement (cm) - Depth => 0.2 - Total Square (Post) (cm) => 4.25 - Area of Debridement (cm) - Length => 1.7 - Area of Debridement (cm) - Width => 2.5 - Total Square (Area) (cm) => 4.25 08/24/25 08/29/25 09/05/25 09:05 10:40 10:57 Wound Center Nurse 2 #19 Right 4th toe -Time 09:06 -Correct Patient Yes Yes -Correct Side, Site, Position Yes No -Correct Procedure Yes No -Procedure Performed Yes No -Type of Procedure Debridement -Clinical Debridement Subcutaneous -Tissue Removed Subcutaneous -Post Debridement (cm) - Length 0.2 -Post Debridement (cm) - Width 0.1 -Post Debridement (cm) - Depth 0.3 -Total Square (Post) (cm) 0.02 -Area of Debridement (cm) - Length 0.2 -Area of Debridement (cm) - Width 0.1 -Total Square (Area) (cm) 0.02 -Tunneling No -Undermining/Tunneling No -Circular Undermining No -Wound/Ulcer Outcome Not Healed Amputation Anticipated -Ulcer Cleansing Rinsed/ Irrigated with Saline -Foul Odor after Cleansing No -Bioengineered Tissue No -Bleeding Controlled with Pressure -Treatment Response Procedure Tolerated Well -Offloading No -Debridement - Subq, 1st 20sq cm No 16. RLE deluna cluster -Time 09:08 -Correct Patient Yes -Correct Side, Site, Position Yes -Correct Procedure No -Procedure Performed No -Wound/Ulcer Outcome Healed- Epithelialized -Ulcer Cleansing Not Cleansed -Foul Odor after Cleansing No -Offloading No RIGHT DELUNA -Time -Correct Patient -Correct Side, Site, Position -Correct Procedure -Procedure Performed -Type of Procedure -Clinical Debridement -Tissue Removed -Post Debridement (cm) - Length -Post Debridement (cm) - Width -Post Debridement (cm) - Depth -Total Square (Post) (cm) -Area of Debridement (cm) - Length -Area of Debridement (cm) - Width -Total Square (Area) (cm) -Tunneling -Undermining/Tunneling -Circular Undermining -Wound/Ulcer Outcome -Ulcer Cleansing -Foul Odor after Cleansing -Bioengineered Tissue -Bleeding Controlled with -Treatment Response -Offloading -Debridement - Subq, 1st 20sq cm 15. R plantar -Time 09:07 10:41 10:59 -Correct Patient Yes Yes Yes -Correct Side, Site, Position Yes Yes Yes -Correct Procedure Yes Yes Yes -Procedure Performed Yes Yes Yes -Type of Procedure Debridement Debridement Debridement -Clinical Debridement Subcutaneous Subcutaneous Subcutaneous -Tissue Removed Subcutaneous Subcutaneous Subcutaneous -Post Debridement (cm) - Length 0.3 1.7 1.2 -Post Debridement (cm) - Width 1.5 2.5 1.3 -Post Debridement (cm) - Depth 0.1 0.2 0.1 -Total Square (Post) (cm) 0.45 4.25 1.56 -Area of Debridement (cm) - Length 0.3 1.7 1.2 -Area of Debridement (cm) - Width 1.5 2.5 1.3 -Total Square (Area) (cm) 0.45 4.25 1.56 -Tunneling No No No -Undermining/Tunneling No No No -Circular Undermining No No No -Wound/Ulcer Outcome Not Healed Not Healed Not Healed -Ulcer Cleansing Rinsed/ Rinsed/ Rinsed/ Irrigated with Irrigated with Irrigated with Saline Saline Saline -Foul Odor after Cleansing No No No -Bioengineered Tissue No No No -Bleeding Controlled with Pressure Pressure Pressure -Treatment Response Procedure Procedure Procedure Tolerated Well Tolerated Well Tolerated Well -Offloading No Yes Yes -Type of Offloading Surgical Shoe Surgical Shoe -Debridement - Subq, 1st 20sq cm Yes Yes Yes Pain Scale: 0-10 Numeric Is Patient Pain Free? Yes Yes Yes 09/12/25 09:07 Wound Center Nurse 2 #19 Right 4th toe -Time -Correct Patient -Correct Side, Site, Position -Correct Procedure -Procedure Performed -Type of Procedure -Clinical Debridement -Tissue Removed -Post Debridement (cm) - Length -Post Debridement (cm) - Width -Post Debridement (cm) - Depth -Total Square (Post) (cm) -Area of Debridement (cm) - Length -Area of Debridement (cm) - Width -Total Square (Area) (cm) -Tunneling -Undermining/Tunneling -Circular Undermining -Wound/Ulcer Outcome -Ulcer Cleansing -Foul Odor after Cleansing -Bioengineered Tissue -Bleeding Controlled with -Treatment Response -Offloading -Debridement - Subq, 1st 20sq cm 16. RLE deluna cluster -Time -Correct Patient -Correct Side, Site, Position -Correct Procedure -Procedure Performed -Wound/Ulcer Outcome -Ulcer Cleansing -Foul Odor after Cleansing -Offloading RIGHT DELUNA -Time 09:08 -Correct Patient Yes -Correct Side, Site, Position Yes -Correct Procedure Yes -Procedure Performed Yes -Type of Procedure Debridement -Clinical Debridement Subcutaneous -Tissue Removed Subcutaneous -Post Debridement (cm) - Length 1.5 -Post Debridement (cm) - Width 1.2 -Post Debridement (cm) - Depth 0.1 -Total Square (Post) (cm) 1.80 -Area of Debridement (cm) - Length 1.5 -Area of Debridement (cm) - Width 1.2 -Total Square (Area) (cm) 1.80 -Tunneling No -Undermining/Tunneling No -Circular Undermining No -Wound/Ulcer Outcome Not Healed -Ulcer Cleansing Rinsed/ Irrigated with Saline -Foul Odor after Cleansing No -Bioengineered Tissue No -Bleeding Controlled with Pressure -Treatment Response Procedure Tolerated Well -Offloading No -Debridement - Subq, 1st 20sq cm No 15. R plantar -Time 09:07 -Correct Patient Yes -Correct Side, Site, Position Yes -Correct Procedure Yes -Procedure Performed Yes -Type of Procedure Debridement -Clinical Debridement Subcutaneous -Tissue Removed Subcutaneous -Post Debridement (cm) - Length 1.2 -Post Debridement (cm) - Width 1.5 -Post Debridement (cm) - Depth 0.1 -Total Square (Post) (cm) 1.80 -Area of Debridement (cm) - Length 1.2 -Area of Debridement (cm) - Width 1.5 -Total Square (Area) (cm) 1.80 -Tunneling No -Undermining/Tunneling No -Circular Undermining No -Wound/Ulcer Outcome Not Healed -Ulcer Cleansing Rinsed/ Irrigated with Saline -Foul Odor after Cleansing No -Bioengineered Tissue No -Bleeding Controlled with Pressure -Treatment Response Procedure Tolerated Well -Offloading Yes -Type of Offloading Surgical Shoe -Debridement - Subq, 1st 20sq cm Yes Pain Scale: 0-10 Numeric Is Patient Pain Free? Yes WC - Nurse 3 - General Ulcer D/C NN Start: 08/24/25 08:09 Freq: Status: Active Protocol: Activity Type Activity Date Activity User E-sign Co-sign Detail Recorded Client Recorded Date Recorded By Document 08/24/25 09:28 JF [id number] 08/24/25 09:29 Document 08/29/25 10:49 MT [id number] 08/29/25 10:53 MT Document 09/05/25 11:03 [id number] 09/05/25 11:04 Document 09/12/25 09:23 CP [id number] 09/12/25 09:25 CP 08/24/25 08/29/25 09/05/25 09:28 10:49 11:03 Wound Care Center Nurse 3 #19 Right 4th toe -Ulcer Cleansing Rinsed/ Irrigated with Saline -Foul Odor after Cleansing No -Primary Dressing Applied Promogran -Primary Dressing Covered/Secured with Dry Gauze, Secured with Tape -Promogran 1 RIGHT DELUNA -Ulcer Cleansing -Other Dressing -Primary Dressing Covered/Secured with 15. R plantar -Ulcer Cleansing Rinsed/ Rinsed/ Irrigated with Irrigated with Saline Saline -Foul Odor after Cleansing No No -Primary Dressing Applied Aquacel AG 4x4 -Other Dressing betadine betadine soaked gauze -Primary Dressing Covered/Secured with Dry Gauze & Dry Gauze & Dry Gauze & Roll Gauze, Roll Gauze, Roll Gauze, Secured with Secured with Secured with Tape Tape Tape -Aquacel AG 4x4 1 RLE -Tubular Bandage Single Layer -Size of Tubigrip Used Size D -Size D ($) 1 Pain Scale: 0-10 Numeric Is Patient Pain Free? Yes Yes Yes - Visit Discharge Discharge Condition Stable Stable Stable Ambulatory Status Ambulatory Ambulatory Ambulatory Transportation Private Auto Private Auto Private Auto Medication Reconcilliation completed & Yes No Yes provided to patient/care provider Clinical Summary of Care Provided Yes Yes Yes Notes: darco shoe size medium 09/12/25 09:23 Wound Care Center Nurse 3 #19 Right 4th toe -Ulcer Cleansing -Foul Odor after Cleansing -Primary Dressing Applied -Primary Dressing Covered/Secured with -Promogran RIGHT DELUNA -Ulcer Cleansing Rinsed/ Irrigated with Saline -Other Dressing BETADINE -Primary Dressing Covered/Secured with Dry Gauze & Roll Gauze, Secured with Tape 15. R plantar -Ulcer Cleansing Rinsed/ Irrigated with Saline -Foul Odor after Cleansing -Primary Dressing Applied -Other Dressing BETADINE -Primary Dressing Covered/Secured with Dry Gauze & Roll Gauze, Secured with Tape -Aquacel AG 4x4 RLE -Tubular Bandage -Size of Tubigrip Used -Size D ($) Pain Scale: 0-10 Numeric Is Patient Pain Free? Yes - Visit Discharge Discharge Condition Stable Ambulatory Status Ambulatory Transportation Private Auto Medication Reconcilliation completed & provided to patient/care provider Clinical Summary of Care Provided Yes Notes: Assessment/Plan Assessment/Plan (1) Non-pressure chronic ulcer of other part of right foot with fat layer exposed: CODE(S): L97.512 - Non-pressure chronic ulcer of other part of right foot with fat layer exposed PLAN: Patient was examined and evaluated. All findings were discussed with the patient. All questions were answered to the patient's satisfaction. Excisional debridement down to and including subcutaneous tissue with a number 5 mm dermal curette done without incident. Predebridement measurement was 1.1 x 1.3 x 0.1 cm. Postdebridement measurement is 1.2 x 1.5 x 0.1 cm. Excisional debridement down to and including subcutaneous tissue with a number 5 mm dermal curette to the anterior right leg secondary to trauma. This was done without incident.. Right measurement was eschar. Posterior measures 1.5 x 1.2 x 0.1 cm. The right lower extremity was wiped plain and patted dry. All wounds were dressed in Betadine soaked gauze dry sterile dressing and compression wrap was donned throughout extremity. Patient will continue daily dressing changes. He will take all antibiotics until gone. He will continue strict blood sugar control. No plan for surgical intervention at this time. Patient will follow-up with antibiotic on for evaluation and treatment of the bilateral lower extremity. Follow-up at the wound care center with Dr. Colon in 1 week. (2) Non-pressure chronic ulcer of other part of right lower leg with fat layer exposed: CODE(S): L97.812 - Non-pressure chronic ulcer of other part of right lower leg with fat layer exposed (3) Charcot joint of right foot: CODE(S): M14.671 - Charcot's joint, right ankle and foot (4) Osteomyelitis of fourth toe of right foot: CODE(S): M86.9 - Osteomyelitis, unspecified
[2025-09-19 08:18] VITALS: BP 186/88; PULSE 67; RESP 14; TEMP 36
--- NOTE | 2025-09-19 10:07 | PN.PCM_ITS ---
History of Present Illness Date of Service: 09/19/25 Chief Complaint: Ulcerations of the right pretibial and lateral calf, right lateral foot History of Wound: David is a 54 year old male that presents to the wound center for evaluation and treatment of an ulcer of his right foot. The ulcer appeared approximately a week ago. He noticed blood coming from his shoe and there was a blister that had broken open. He has been applying gauze and washing with soap daily to treat the ulcer and was seen at urgent care and started on doxycycline. A wound culture was taken and results showed multiple bacteria with Pseudomonas, Staph and Strep. Anaerobic culture is still pending. He denies systemic symptoms such as fever, chills, erythema, odor. He is struggling financially to afford supplies, medications and taking care of his home and financial responsibilities. 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 His last A1C was 01/2025 and was 13.2 %. He is a very poorly controlled diabetic on insulin. He does not have diabetic shoes. He does see Dr. Ozuna for podiatry for diabetic foot exams. 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 He also had repeat venous testing 04/08/23 which showed incompetence and vascular surgery was considered but was not done at that time. He has not been able to place compression because he is unable to bend to pull on compression stockings due to arthritis in his back. He is not able to wrap with RADHA bandages either. Circaids were tried previously but he was unable to do this as well. He has been wearing tubigrips for compression. He states he still has issues getting them on at times when his back is flared up. He has chronic lymphedema. Progress of Wound: Stable full-thickness wound right plantar foot Subjective Subjective Patient is a 54-year-old diabetic male presenting to clinic today follow-up evaluation of full-thickness wound to plantar right foot and leg. Patient has been compliant with dressing changes. He mitts the wound is improved. His blood sugars very well-controlled. He will be following up in November regarding his high A1c for possible medication change. He denies any new onset of trauma. Denies constitutional symptoms. No other pedal complaints at this time. Objective Data Objective Data Vital Signs: Vital Signs Temp Pulse Resp BP 96.8 F L 67 14 186/88 H 09/19/25 08:18 09/19/25 08:18 09/19/25 08:18 09/19/25 08:18 Lab / Micro Data 08/29/25 11:22 08/29/25 11:22 Micro: Microbiology 08/29/25 10:40 Wound - Right Foot Gram Stain - Final 08/29/25 10:40 Wound - Right Foot Wound Culture - Final Streptococcus agalactiae (B) Staphylococcus aureus 08/29/25 10:40 Wound - Right Foot Anaerobic Culture - Final No anaerobic bacteria isolated. Physical Exam Narrative Vascular: DP and PT pulses are palpable to the right lower extremity. CFT is brisk. Skin temperature gradient is warm to warm from proximal ankles to distal digits right lower extremity. Blanchable erythema to anterior right leg is improving. Neurological: Light touch is intact. Protective station is absent. Dermatological Full-thickness wound to the plantar subfifth metatarsal head measuring 0.7 x 1.0 x 0.1 cm. Wound base is fibrogranular in nature. Negative probe to bone. Full-thickness wound to anterior right deluna measuring 1.9 x 1.2 x 0.1 cm. Wound base is granular nature. No sign of infection. Excisional debridement down to and including subcutaneous tissue with a number 5 mm dermal curette to the subfifth metatarsal head right foot done without incident. Predebridement measurement was 0.6 x 0.8 x 0.1 cm. Postdebridement measurement is 0.7 x 1.0 x 0.1 cm. Excisional debridement down to and including subcutaneous tissue with a number 5 mm dermal curette to the anterior right leg secondary to trauma. This was done without incident. Predebridement measurement was eschar. Posterior measures 1.9 x 1.2 x 0.1 cm. Muscle skeletal: No pain to palpation of full-thickness wounds to right lower extremity. No pain with calf pressure. Debridement Note Debridement Note Debridement Free Text: Excisional debridement down to and including subcutaneous tissue with a number 5 mm dermal curette to the subfifth metatarsal head right foot done without incident. Predebridement measurement was 0.6 x 0.8 x 0.1 cm. Postdebridement measurement is 0.7 x 1.0 x 0.1 cm. Excisional debridement down to and including subcutaneous tissue with a number 5 mm dermal curette to the anterior right leg secondary to trauma. This was done without incident. Predebridement measurement was eschar. Posterior measures 1.9 x 1.2 x 0.1 cm. Post-Debridement Measurements and Additional Note: Post-Debridement Measurements/Treatment WC - Nurse 1 - General Ulcer Assessment Start: 08/24/25 08:09 Freq: Status: Active Protocol: MART Activity Type Activity Date Activity User E-sign Co-sign Detail Recorded Client Recorded Date Recorded By Document 08/24/25 08:09 JF [id number] 08/24/25 08:18 JF Document 08/29/25 10:16 CP [id number] 08/29/25 10:24 CP Document 09/05/25 10:32 ML [id number] 09/05/25 10:34 ML Document 09/12/25 08:26 RB [id number] 09/12/25 08:28 RB Document 09/19/25 08:18 ML [id number] 09/19/25 08:21 ML 08/24/25 08/29/25 09/05/25 08:09 10:16 10:32 - Today's Visit Information Type of service Follow-up Visit Follow-up Visit Follow-up Visit (Physician/STRAIGHTENING PRESS OPERATOR HELPER (Physician/STRAIGHTENING PRESS OPERATOR HELPER (Physician/STRAIGHTENING PRESS OPERATOR HELPER ) ) ) Arrival Mode Ambulatory Ambulatory Ambulatory Transfer Assistance Patient Identification Verified (Name & Yes Yes Yes ) Patient Requires Transmission-Based No No Precautions Finger Stick Blood Sugar(mg/dl) (if 110 indicated): Blood Sugar Stated by Patient Vital Signs Temperature (97.8 F-99.1 F) 96.6 F L 96.9 F L 96.5 F L Temperature Source Temporal Temporal Temporal Pulse Rate (60-100) 89 62 Pulse Location Monitor Monitor Respiratory Rate (12-18) 16 16 14 Respiratory rate source Observation Observation Observation Blood Pressure (90/60-120/80) 154/99 H 183/80 H Blood Pressure Mean (mm Hg) 117 114 Source Monitor Monitor Position Sitting Sitting Blood Pressure Location Left Arm Right Forearm History Since Last Visit- (Skip if this is Patient's initial visit) Have you changed medications since your Yes No No last visit? Any new allergies or adverse reactions No No No Had a fall/change in ADL's that may No No No increase risk of falls Signs or symptoms of abuse and/or No No No neglect since last visit Have you been in the hospital since your No No No last visit? Has dressing in place as prescribed Yes Yes Yes Has compression in place as prescribed Yes N/A Yes Has offloadiing in place as prescribed N/A No N/A Experienced any changes in pain level or No No No management Left Footwear Regular Shoe Right Footwear Regular Shoe Pain Scale: 0-10 Numeric Is Patient Pain Free? Yes No Yes 09/12/25 09/19/25 08:26 08:18 - Today's Visit Information Type of service Follow-up Visit Follow-up Visit (Physician/STRAIGHTENING PRESS OPERATOR HELPER (Physician/STRAIGHTENING PRESS OPERATOR HELPER ) ) Arrival Mode Ambulatory Ambulatory Transfer Assistance None None Patient Identification Verified (Name & Yes Yes ) Patient Requires Transmission-Based No No Precautions Finger Stick Blood Sugar(mg/dl) (if indicated): Blood Sugar Vital Signs Temperature (97.8 F-99.1 F) 97.1 F L 96.8 F L Temperature Source Temporal Temporal Pulse Rate (60-100) 91 67 Pulse Location Monitor Monitor Respiratory Rate (12-18) 18 14 Respiratory rate source Observation Observation Blood Pressure (90/60-120/80) 165/93 H 186/88 H Blood Pressure Mean (mm Hg) 117 120 Source Monitor Monitor Position Semi-Fowlers Sitting Blood Pressure Location Left Arm Left Arm History Since Last Visit- (Skip if this is Patient's initial visit) Have you changed medications since your No No last visit? Any new allergies or adverse reactions No No Had a fall/change in ADL's that may No No increase risk of falls Signs or symptoms of abuse and/or No No neglect since last visit Have you been in the hospital since your No No last visit? Has dressing in place as prescribed Yes No Has compression in place as prescribed N/A No Has offloadiing in place as prescribed N/A N/A Experienced any changes in pain level or No No management Left Footwear Regular Shoe Right Footwear Regular Shoe Pain Scale: 0-10 Numeric Is Patient Pain Free? Yes Yes - Nurse 1 - General Ulcer Measurement Start: 08/24/25 08:09 Freq: Status: Active Protocol: Activity Type Activity Date Activity User E-sign Co-sign Detail Recorded Client Recorded Date Recorded By Document 10/03/25 08:09 JF [id number] 08/24/25 08:18 JF Document 08/29/25 10:16 CP [id number] 08/29/25 10:24 CP Document 09/05/25 10:32 ML [id number] 09/05/25 10:34 ML Document 09/12/25 08:26 RB [id number] 09/12/25 08:28 RB Document 09/19/25 08:18 ML [id number] 09/19/25 08:21 ML 08/24/25 08/29/25 09/05/25 08:09 10:16 10:32 Wound Center Nurse 1 #19 Right 4th toe -Combined with other wound No -Current Size (cm) - Length 0.1 0.5 -Current Size (cm) - Width 0.1 0.5 -Current Size (cm) - Depth 0.1 0.1 -Total Square Cm 0.01 0.25 -Photo Taken Yes -Epithelialization Large 67-100% -Tunneling No -Undermining/Tunneling No -Circular Undermining No -Exudate Amt None Present None Present -Wound Margin Fibrotic Scar, Thickened Scar -Granulation Amt None Present (0 %) -Slough/Fibrin Yes -Necrosis Amt Large (67-100%) -Necrotic Tissue Type Adherent Slough -Structure Exposed N/A N/A -Texture (Milly-wound Skin Appearance) Assessed, No Abnormality Scarring -Moisture (Milly-wound Skin Appearance) Assessed,Dry/ No Abnormality Scaly -Color (Milly-wound Skin Appearance) Assessed No Abnormality -Temperature (Milly-wound Skin No Abnormality No Abnormality Appearance) (Pt Warm) (Pt Warm) -Tenderness on Palpation (Milly-wound No No Skin Appearance) -Ulcer Cleansing Not Cleansed Rinsed/ Irrigated with Saline -Foul Odor after Cleansing No -Anesthetic Used 5% Lidocaine 5% Lidocaine Gel Gel 17. left foot cluster -Combined with other wound No -Current Size (cm) - Length 0.2 -Current Size (cm) - Width 0.4 -Current Size (cm) - Depth 0.1 -Total Square Cm 0.08 -Photo Taken Yes -Epithelialization Medium 34-66% -Tunneling No -Undermining/Tunneling No -Circular Undermining No -Exudate Amt None Present -Wound Margin Flat & Intact -Granulation Amt Large (67-100%) -Granulation Quality Red -Slough/Fibrin Yes -Necrosis Amt Small (1-33%) -Necrotic Tissue Type Adherent Slough -Structure Exposed N/A -Texture (Milly-wound Skin Appearance) Assessed, Scarring -Moisture (Milly-wound Skin Appearance) Assessed,Dry/ Scaly -Color (Milly-wound Skin Appearance) Assessed -Temperature (Milly-wound Skin No Abnormality Appearance) (Pt Warm) -Tenderness on Palpation (Milly-wound No Skin Appearance) -Ulcer Cleansing Soap and Water -Foul Odor after Cleansing No -Anesthetic Used 5% Lidocaine Gel 16. RLE deluna cluster -Combined with other wound No -Current Size (cm) - Length 0.1 -Current Size (cm) - Width 0.1 -Current Size (cm) - Depth 0.1 -Total Square Cm 0.01 -Photo Taken Yes -Epithelialization Large 67-100% -Tunneling No -Undermining/Tunneling No -Circular Undermining No -Exudate Amt None Present -Wound Margin Flat & Intact -Granulation Amt Large (67-100%) -Granulation Quality Red -Slough/Fibrin Yes -Necrosis Amt Small (1-33%) -Necrotic Tissue Type Adherent Slough -Structure Exposed N/A -Texture (Milly-wound Skin Appearance) Assessed -Moisture (Milly-wound Skin Appearance) Assessed,Dry/ Scaly -Color (Milly-wound Skin Appearance) Assessed -Temperature (Milly-wound Skin No Abnormality Appearance) (Pt Warm) -Tenderness on Palpation (Milly-wound No Skin Appearance) -Ulcer Cleansing Rinsed/ Irrigated with Saline -Foul Odor after Cleansing No -Anesthetic Used 5% Lidocaine Gel RIGHT DELUNA -Current Size (cm) - Length -Current Size (cm) - Width -Current Size (cm) - Depth -Total Square Cm -Exudate Amt -Exudate Type -Granulation Amt -Slough/Fibrin -Texture (Milly-wound Skin Appearance) -Moisture (Milly-wound Skin Appearance) -Color (Milly-wound Skin Appearance) -Temperature (Milly-wound Skin Appearance) -Tenderness on Palpation (Milly-wound Skin Appearance) -Ulcer Cleansing -Foul Odor after Cleansing -Anesthetic Used 15. R plantar -Combined with other wound No -Current Size (cm) - Length 0.2 0.5 1 -Current Size (cm) - Width 0.4 0.7 0.8 -Current Size (cm) - Depth 0.1 0.1 0.1 -Total Square Cm 0.08 0.35 0.8 -Photo Taken Yes -Epithelialization Large 67-100% -Tunneling No -Undermining/Tunneling No -Circular Undermining No -Exudate Amt None Present Small Medium -Exudate Type Serous Serosanguineous -Wound Margin Fibrotic Scar, Flat & Intact Thickened Scar -Granulation Amt Medium (34-66%) Large (67-100%) -Granulation Quality [place] Red -Slough/Fibrin Yes -Necrosis Amt Small (1-33%) None Present (0 %) -Necrotic Tissue Type Adherent Slough Adherent Slough -Structure Exposed N/A N/A -Texture (Milly-wound Skin Appearance) Assessed No Abnormality Assessed -Moisture (Milly-wound Skin Appearance) Assessed,Dry/ No Abnormality Assessed Scaly -Color (Milly-wound Skin Appearance) Assessed No Abnormality Assessed -Temperature (Milly-wound Skin No Abnormality No Abnormality Appearance) (Pt Warm) (Pt Warm) -Tenderness on Palpation (Milly-wound No No No Skin Appearance) -Ulcer Cleansing Rinsed/ Rinsed/ Rinsed/ Irrigated with Irrigated with Irrigated with Saline Saline Saline -Foul Odor after Cleansing No -Anesthetic Used 5% Lidocaine 5% Lidocaine 5% Lidocaine Gel Gel Gel Lower Limb Edema Present NA 09/12/25 09/19/25 08:26 08:18 Wound Center Nurse 1 #19 Right 4th toe -Combined with other wound -Current Size (cm) - Length -Current Size (cm) - Width -Current Size (cm) - Depth -Total Square Cm -Photo Taken -Epithelialization -Tunneling -Undermining/Tunneling -Circular Undermining -Exudate Amt -Wound Margin -Granulation Amt -Slough/Fibrin -Necrosis Amt -Necrotic Tissue Type -Structure Exposed -Texture (Milly-wound Skin Appearance) -Moisture (Milly-wound Skin Appearance) -Color (Milly-wound Skin Appearance) -Temperature (Milly-wound Skin Appearance) -Tenderness on Palpation (Milly-wound Skin Appearance) -Ulcer Cleansing -Foul Odor after Cleansing -Anesthetic Used 17. left foot cluster -Combined with other wound -Current Size (cm) - Length -Current Size (cm) - Width -Current Size (cm) - Depth -Total Square Cm -Photo Taken -Epithelialization -Tunneling -Undermining/Tunneling -Circular Undermining -Exudate Amt -Wound Margin -Granulation Amt -Granulation Quality -Slough/Fibrin -Necrosis Amt -Necrotic Tissue Type -Structure Exposed -Texture (Milly-wound Skin Appearance) -Moisture (Milly-wound Skin Appearance) -Color (Milly-wound Skin Appearance) -Temperature (Milly-wound Skin Appearance) -Tenderness on Palpation (Milly-wound Skin Appearance) -Ulcer Cleansing -Foul Odor after Cleansing -Anesthetic Used 16. RLE deluna cluster -Combined with other wound -Current Size (cm) - Length -Current Size (cm) - Width -Current Size (cm) - Depth -Total Square Cm -Photo Taken -Epithelialization -Tunneling -Undermining/Tunneling -Circular Undermining -Exudate Amt -Wound Margin -Granulation Amt -Granulation Quality -Slough/Fibrin -Necrosis Amt -Necrotic Tissue Type -Structure Exposed -Texture (Milly-wound Skin Appearance) -Moisture (Milly-wound Skin Appearance) -Color (Milly-wound Skin Appearance) -Temperature (Milly-wound Skin Appearance) -Tenderness on Palpation (Milly-wound Skin Appearance) -Ulcer Cleansing -Foul Odor after Cleansing -Anesthetic Used RIGHT DELUNA -Current Size (cm) - Length 3 -Current Size (cm) - Width 2.6 -Current Size (cm) - Depth 0.1 -Total Square Cm 7.8 -Exudate Amt Medium -Exudate Type Serosanguineous -Granulation Amt Medium (34-66%) -Slough/Fibrin Yes -Texture (Milly-wound Skin Appearance) Assessed -Moisture (Milly-wound Skin Appearance) Assessed -Color (Milly-wound Skin Appearance) Assessed -Temperature (Imlly-wound Skin No Abnormality Appearance) (Pt Warm) -Tenderness on Palpation (Milly-wound No Skin Appearance) -Ulcer Cleansing Rinsed/ Irrigated with Saline -Foul Odor after Cleansing No -Anesthetic Used 5% Lidocaine Gel 15. R plantar -Combined with other wound No -Current Size (cm) - Length 1 1 -Current Size (cm) - Width 1 0.8 -Current Size (cm) - Depth 0.1 0.1 -Total Square Cm 1 0.8 -Photo Taken Yes -Epithelialization -Tunneling No -Undermining/Tunneling No -Circular Undermining No -Exudate Amt Medium Medium -Exudate Type Serosanguineous Serosanguineous -Wound Margin Thickened & Rolled Under -Granulation Amt Medium (34-66%) Medium (34-66%) -Granulation Quality [place] -Slough/Fibrin Yes Yes -Necrosis Amt Small (1-33%) Small (1-33%) -Necrotic Tissue Type Adherent Slough Adherent Slough -Structure Exposed N/A -Texture (Milly-wound Skin Appearance) Callus Assessed -Moisture (Milly-wound Skin Appearance) Assessed Assessed -Color (Milly-wound Skin Appearance) Assessed Assessed -Temperature (Milly-wound Skin No Abnormality No Abnormality Appearance) (Pt Warm) (Pt Warm) -Tenderness on Palpation (Milly-wound No No Skin Appearance) -Ulcer Cleansing Wound Cleanser Rinsed/ Irrigated with Saline -Foul Odor after Cleansing No No -Anesthetic Used 5% Lidocaine 5% Lidocaine Gel Gel Lower Limb Edema Present WC - Nurse 2 - General Ulcer CM Notes Start: 08/24/25 08:09 Freq: Status: Active Protocol: Activity Type Activity Date Activity User E-sign Co-sign Detail Recorded Client Recorded Date Recorded By Document 08/24/25 09:05 [id number] 08/24/25 09:18 Document 08/29/25 10:40 [id number] 08/29/25 10:43 Edit Result 08/29/25 10:40 (1) [id number] 08/29/25 10:44 Document 09/05/25 10:57 [id number] 09/05/25 11:03 Document 09/12/25 09:07 [id number] 09/12/25 09:11 Document 09/19/25 08:40 [id number] 09/19/25 08:45 (1) 15. R plantar - Post Debridement (cm) - Length => 1.7 - Post Debridement (cm) - Width => 2.5 - Post Debridement (cm) - Depth => 0.2 - Total Square (Post) (cm) => 4.25 - Area of Debridement (cm) - Length => 1.7 - Area of Debridement (cm) - Width => 2.5 - Total Square (Area) (cm) => 4.25 10/03/25 10/08/25 10/15/25 09:05 10:40 10:57 Wound Center Nurse 2 #19 Right 4th toe -Time 09:06 -Correct Patient Yes Yes -Correct Side, Site, Position Yes No -Correct Procedure Yes No -Procedure Performed Yes No -Type of Procedure Debridement -Clinical Debridement Subcutaneous -Tissue Removed Subcutaneous -Post Debridement (cm) - Length 0.2 -Post Debridement (cm) - Width 0.1 -Post Debridement (cm) - Depth 0.3 -Total Square (Post) (cm) 0.02 -Area of Debridement (cm) - Length 0.2 -Area of Debridement (cm) - Width 0.1 -Total Square (Area) (cm) 0.02 -Tunneling No -Undermining/Tunneling No -Circular Undermining No -Wound/Ulcer Outcome Not Healed Amputation Anticipated -Ulcer Cleansing Rinsed/ Irrigated with Saline -Foul Odor after Cleansing No -Bioengineered Tissue No -Bleeding Controlled with Pressure -Treatment Response Procedure Tolerated Well -Offloading No -Debridement - Subq, 1st 20sq cm No 16. RLE deluna cluster -Time 09:08 -Correct Patient Yes -Correct Side, Site, Position Yes -Correct Procedure No -Procedure Performed No -Wound/Ulcer Outcome Healed- Epithelialized -Ulcer Cleansing Not Cleansed -Foul Odor after Cleansing No -Offloading No RIGHT DELUNA -Time -Correct Patient -Correct Side, Site, Position -Correct Procedure -Procedure Performed -Type of Procedure -Clinical Debridement -Tissue Removed -Post Debridement (cm) - Length -Post Debridement (cm) - Width -Post Debridement (cm) - Depth -Total Square (Post) (cm) -Area of Debridement (cm) - Length -Area of Debridement (cm) - Width -Total Square (Area) (cm) -Tunneling -Undermining/Tunneling -Circular Undermining -Wound/Ulcer Outcome -Ulcer Cleansing -Foul Odor after Cleansing -Bioengineered Tissue -Bleeding Controlled with -Treatment Response -Offloading -Debridement - Subq, 1st 20sq cm 15. R plantar -Time 09:07 10:41 10:59 -Correct Patient Yes Yes Yes -Correct Side, Site, Position Yes Yes Yes -Correct Procedure Yes Yes Yes -Procedure Performed Yes Yes Yes -Type of Procedure Debridement Debridement Debridement -Clinical Debridement Subcutaneous Subcutaneous Subcutaneous -Tissue Removed Subcutaneous Subcutaneous Subcutaneous -Post Debridement (cm) - Length 0.3 1.7 1.2 -Post Debridement (cm) - Width 1.5 2.5 1.3 -Post Debridement (cm) - Depth 0.1 0.2 0.1 -Total Square (Post) (cm) 0.45 4.25 1.56 -Area of Debridement (cm) - Length 0.3 1.7 1.2 -Area of Debridement (cm) - Width 1.5 2.5 1.3 -Total Square (Area) (cm) 0.45 4.25 1.56 -Tunneling No No No -Undermining/Tunneling No No No -Circular Undermining No No No -Wound/Ulcer Outcome Not Healed Not Healed Not Healed -Ulcer Cleansing Rinsed/ Rinsed/ Rinsed/ Irrigated with Irrigated with Irrigated with Saline Saline Saline -Foul Odor after Cleansing No No No -Bioengineered Tissue No No No -Bleeding Controlled with Pressure Pressure Pressure -Treatment Response Procedure Procedure Procedure Tolerated Well Tolerated Well Tolerated Well -Offloading No Yes Yes -Type of Offloading Surgical Shoe Surgical Shoe -Debridement - Subq, 1st 20sq cm Yes Yes Yes Pain Scale: 0-10 Numeric Is Patient Pain Free? Yes Yes Yes 09/12/25 09/19/25 09:07 08:40 Wound Center Nurse 2 #19 Right 4th toe -Time -Correct Patient -Correct Side, Site, Position -Correct Procedure -Procedure Performed -Type of Procedure -Clinical Debridement -Tissue Removed -Post Debridement (cm) - Length -Post Debridement (cm) - Width -Post Debridement (cm) - Depth -Total Square (Post) (cm) -Area of Debridement (cm) - Length -Area of Debridement (cm) - Width -Total Square (Area) (cm) -Tunneling -Undermining/Tunneling -Circular Undermining -Wound/Ulcer Outcome -Ulcer Cleansing -Foul Odor after Cleansing -Bioengineered Tissue -Bleeding Controlled with -Treatment Response -Offloading -Debridement - Subq, 1st 20sq cm 16. RLE deluna cluster -Time -Correct Patient -Correct Side, Site, Position -Correct Procedure -Procedure Performed -Wound/Ulcer Outcome -Ulcer Cleansing -Foul Odor after Cleansing -Offloading RIGHT DELUNA -Time 09:08 08:42 -Correct Patient Yes Yes -Correct Side, Site, Position Yes Yes -Correct Procedure Yes Yes -Procedure Performed Yes Yes -Type of Procedure Debridement Debridement -Clinical Debridement Subcutaneous Subcutaneous -Tissue Removed Subcutaneous Subcutaneous -Post Debridement (cm) - Length 1.5 1.9 -Post Debridement (cm) - Width 1.2 1.2 -Post Debridement (cm) - Depth 0.1 0.1 -Total Square (Post) (cm) 1.80 2.28 -Area of Debridement (cm) - Length 1.5 1.9 -Area of Debridement (cm) - Width 1.2 1.2 -Total Square (Area) (cm) 1.80 2.28 -Tunneling No No -Undermining/Tunneling No No -Circular Undermining No No -Wound/Ulcer Outcome Not Healed Not Healed -Ulcer Cleansing Rinsed/ Rinsed/ Irrigated with Irrigated with Saline Saline -Foul Odor after Cleansing No No -Bioengineered Tissue No No -Bleeding Controlled with Pressure Pressure -Treatment Response Procedure Procedure Tolerated Well Tolerated Well -Offloading No No -Debridement - Subq, 1st 20sq cm No No 15. R plantar -Time 09:07 08:40 -Correct Patient Yes Yes -Correct Side, Site, Position Yes Yes -Correct Procedure Yes Yes -Procedure Performed Yes Yes -Type of Procedure Debridement Debridement -Clinical Debridement Subcutaneous Subcutaneous -Tissue Removed Subcutaneous Subcutaneous -Post Debridement (cm) - Length 1.2 0.7 -Post Debridement (cm) - Width 1.5 1.0 -Post Debridement (cm) - Depth 0.1 0.1 -Total Square (Post) (cm) 1.80 0.70 -Area of Debridement (cm) - Length 1.2 0.7 -Area of Debridement (cm) - Width 1.5 1.0 -Total Square (Area) (cm) 1.80 0.70 -Tunneling No No -Undermining/Tunneling No No -Circular Undermining No No -Wound/Ulcer Outcome Not Healed Not Healed -Ulcer Cleansing Rinsed/ Rinsed/ Irrigated with Irrigated with Saline Saline -Foul Odor after Cleansing No No -Bioengineered Tissue No No -Bleeding Controlled with Pressure Pressure -Treatment Response Procedure Procedure Tolerated Well Tolerated Well -Offloading Yes Yes -Type of Offloading Surgical Shoe Surgical Shoe -Debridement - Subq, 1st 20sq cm Yes Yes Pain Scale: 0-10 Numeric Is Patient Pain Free? Yes Yes WC - Nurse 3 - General Ulcer D/C NN Start: 08/24/25 08:09 Freq: Status: Active Protocol: Activity Type Activity Date Activity User E-sign Co-sign Detail Recorded Client Recorded Date Recorded By Document 08/24/25 09:28 JF [id number] 08/24/25 09:29 JF Document 08/29/25 10:49 MT [id number] 08/29/25 10:53 MT Document 09/05/25 11:03 JF [id number] 09/05/25 11:04 JF Document 09/12/25 09:23 CP [id number] 09/12/25 09:25 CP Document 09/19/25 08:51 TS [id number] 09/19/25 08:55 TS 08/24/25 08/29/25 09/05/25 09:28 10:49 11:03 Wound Care Center Nurse 3 #19 Right 4th toe -Ulcer Cleansing Rinsed/ Irrigated with Saline -Foul Odor after Cleansing No -Primary Dressing Applied Promogran -Primary Dressing Covered/Secured with Dry Gauze, Secured with Tape -Promogran 1 RIGHT DELUNA -Ulcer Cleansing -Other Dressing -Primary Dressing Covered/Secured with 15. R plantar -Ulcer Cleansing Rinsed/ Rinsed/ Irrigated with Irrigated with Saline Saline -Foul Odor after Cleansing No No -Primary Dressing Applied Aquacel AG 4x4 -Other Dressing betadine betadine soaked gauze -Primary Dressing Covered/Secured with Dry Gauze & Dry Gauze & Dry Gauze & Roll Gauze, Roll Gauze, Roll Gauze, Secured with Secured with Secured with Tape Tape Tape -Aquacel AG 4x4 1 RLE -Lotion applied to leg before compression wrap -Tubular Bandage Single Layer -Size of Tubigrip Used Size D -Size D ($) 1 Pain Scale: 0-10 Numeric Is Patient Pain Free? Yes Yes Yes WC - Visit Discharge Discharge Condition Stable Stable Stable Ambulatory Status Ambulatory Ambulatory Ambulatory Transportation Private Auto Private Auto Private Auto Medication Reconcilliation completed & Yes No Yes provided to patient/care provider Clinical Summary of Care Provided Yes Yes Yes Notes: darco shoe size medium 09/12/25 09/19/25 09:23 08:51 Wound Care Center Nurse 3 #19 Right 4th toe -Ulcer Cleansing -Foul Odor after Cleansing -Primary Dressing Applied -Primary Dressing Covered/Secured with -Promogran RIGHT DELUNA -Ulcer Cleansing Rinsed/ Not Cleansed Irrigated with Saline -Other Dressing BETADINE betadine -Primary Dressing Covered/Secured with Dry Gauze & Dry Gauze, Roll Gauze, Secured with Secured with Tape Tape 15. R plantar -Ulcer Cleansing Rinsed/ Not Cleansed Irrigated with Saline -Foul Odor after Cleansing -Primary Dressing Applied -Other Dressing BETADINE betadine -Primary Dressing Covered/Secured with Dry Gauze & Dry Gauze & Roll Gauze, Roll Gauze, Secured with Secured with Tape Tape -Aquacel AG 4x4 RLE -Lotion applied to leg before No compression wrap -Tubular Bandage Single Layer -Size of Tubigrip Used Size D -Size D ($) 1 Pain Scale: 0-10 Numeric Is Patient Pain Free? Yes Yes WC - Visit Discharge Discharge Condition Stable Stable Ambulatory Status Ambulatory Ambulatory Transportation Private Auto Private Auto Medication Reconcilliation completed & No provided to patient/care provider Clinical Summary of Care Provided Yes Yes Notes: Assessment/Plan Assessment/Plan (1) Non-pressure chronic ulcer of other part of right foot with fat layer exposed: CODE(S): L97.512 - Non-pressure chronic ulcer of other part of right foot with fat layer exposed PLAN: Patient was examined and evaluated. All findings were discussed with the patient. All questions were answered to the patient's satisfaction. Excisional debridement down to and including subcutaneous tissue with a number 5 mm dermal curette to the subfifth metatarsal head right foot done without incident. Predebridement measurement was 0.6 x 0.8 x 0.1 cm. Postdebridement measurement is 0.7 x 1.0 x 0.1 cm. Excisional debridement down to and including subcutaneous tissue with a number 5 mm dermal curette to the anterior right leg secondary to trauma. This was done without incident. Predebridement measurement was eschar. Posterior measures 1.9 x 1.2 x 0.1 cm. The bilateral lower extremity wounds were wiped clean and patted dry. Betadine paint dry sterile dressing compression wrap was donned right lower extremity. Patient will follow-up with [facility] for custom shoes and orthotics to be evaluated and treated on 09/20/2025. Patient is still taking antibiotics as prescribed. Overall he is great for his care. Follow-up at the wound care center with Dr. Colon in 1 week. (2) Non-pressure chronic ulcer of other part of right lower leg with fat layer exposed: CODE(S): L97.812 - Non-pressure chronic ulcer of other part of right lower leg with fat layer exposed (3) Charcot joint of right foot: CODE(S): M14.671 - Charcot's joint, right ankle and foot (4) Osteomyelitis of fourth toe of right foot: CODE(S): M86.9 - Osteomyelitis, unspecified
--- NOTE | 2025-09-20 09:39 | WC ---
PHOTO-RIGHT SHARP 09/19/25
--- NOTE | 2025-09-20 10:35 | WC ---
PHOTO-RIGHT PLANTAR 09/19/25
== END 2025-09-21 23:59 | disposition home or self-care (01) ==
LOC: WC 08:15
PROVIDERS: PCP Family Medicine; Referring Provider Family Medicine; Visit Provider Podiatrist Foot & Ankle Surgery
DX: E11.621 Type 2 diabetes mellitus with foot ulcer (principal); E11.622 Type 2 diabetes mellitus with other skin ulcer; L97.512 Non-pressure chronic ulcer of other part of right foot with fat layer exposed; L97.812 Non-pressure chronic ulcer of other part of right lower leg with fat layer exposed; M86.9 Osteomyelitis, unspecified; E11.42 Type 2 diabetes mellitus with diabetic polyneuropathy; E11.49 Type 2 diabetes mellitus with other diabetic neurological complication; E11.59 Type 2 diabetes mellitus with other circulatory complications; E11.51 Type 2 diabetes mellitus with diabetic peripheral angiopathy without gangrene; Z79.4 Long term (current) use of insulin; E11.69 Type 2 diabetes mellitus with other specified complication; E11.610 Type 2 diabetes mellitus with diabetic neuropathic arthropathy; E11.65 Type 2 diabetes mellitus with hyperglycemia; Z83.3 Family history of diabetes mellitus; I89.0 Lymphedema, not elsewhere classified; I10 Essential (primary) hypertension; Z79.84 Long term (current) use of oral hypoglycemic drugs; E66.811 Obesity, class 1; E78.5 Hyperlipidemia, unspecified; E66.09 Other obesity due to excess calories; I87.2 Venous insufficiency (chronic) (peripheral); Z79.1 Long term (current) use of non-steroidal anti-inflammatories (NSAID); Z79.85 Long-term (current) use of injectable non-insulin antidiabetic drugs; Z79.899 Other long term (current) drug therapy; Z79.83 Long term (current) use of bisphosphonates; Z86.14 Personal history of Methicillin resistant Staphylococcus aureus infection; Z68.31 Body mass index [BMI] 31.0-31.9, adult
CPT/HCPCS: 11042; 36415; 80048; 83036; 84134; 85027; 85652; 86140; 87070; 87075; 87077; 87186; 87205

== ENCOUNTER 2025-10-10 08:30 | Outpatient (RCR) | payer OTHER, SELFPAY ==
[2025-09-26 09:02] VITALS: BP 181/104; PULSE 80; RESP 18; TEMP 35.7
--- NOTE | 2025-09-26 09:52 | PN.PCM_ITS ---
History of Present Illness Date of Service: 09/19/25 Chief Complaint: Ulcerations of the right pretibial and lateral calf, right lateral foot History of Wound: David is a 54 year old male that presents to the wound center for evaluation and treatment of an ulcer of his right foot. The ulcer appeared approximately a week ago. He noticed blood coming from his shoe and there was a blister that had broken open. He has been applying gauze and washing with soap daily to treat the ulcer and was seen at urgent care and started on doxycycline. A wound culture was taken and results showed multiple bacteria with Pseudomonas, Staph and Strep. Anaerobic culture is still pending. He denies systemic symptoms such as fever, chills, erythema, odor. He is struggling financially to afford supplies, medications and taking care of his home and financial responsibilities. He works at the [employer] part time and he is on his feet all the time there. His last A1C was 01/2025 and was 13.2 %. He is a very poorly controlled diabetic on insulin. He does not have diabetic shoes. He does see Dr. Ozuna for podiatry for diabetic foot exams. 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 He also had repeat venous testing 04/08/23 which showed incompetence and vascular surgery was considered but was not done at that time. He has not been able to place compression because he is unable to bend to pull on compression stockings due to arthritis in his back. He is not able to wrap with RADHA bandages either. Circaids were tried previously but he was unable to do this as well. He has been wearing tubigrips for compression. He states he still has issues getting them on at times when his back is flared up. He has chronic lymphedema. Progress of Wound: Improving full-thickness wound to the right lower extremity. Subjective Subjective Patient is a 55-year-old diabetic male presenting to wound care center today for follow-up evaluation of full-thickness wound to plantar aspect of the right foot and deluna to the right lower extremity. Patient has been compliant with dressing changes. He is keeping his blood sugar between 120 and 145 mg/dL. He has followed up with [facility] for diabetic shoes and custom inserts for offloading the prominence on the right foot. Overall he is doing well. He is grateful for his care. Denies trauma. Denies constitutional symptoms. No other pedal complaints at this time. Objective Data Objective Data Vital Signs: Vital Signs Temp Pulse Resp BP O2 Del Method 96.3 F L 80 18 181/104 H Room Air 09/26/25 09:02 09/26/25 09:02 09/26/25 09:02 09/26/25 09:02 09/26/25 09:02 Oxygen Delivery Method Room Air Lab / Micro Data Micro: Microbiology 08/29/25 10:40 Wound - Right Foot Gram Stain - Final 08/29/25 10:40 Wound - Right Foot Wound Culture - Final Streptococcus agalactiae (B) Staphylococcus aureus 08/29/25 10:40 Wound - Right Foot Anaerobic Culture - Final No anaerobic bacteria isolated. Physical Exam Narrative Vascular: DP and PT pulses are palpable to the right lower extremity. CFT is brisk. Skin temperature gradient is warm to warm from proximal ankles to distal digits right lower extremity. Blanchable erythema to anterior right leg is improving. Neurological: Light touch is intact. Protective station is absent. Dermatological Full-thickness wound to the plantar subfifth metatarsal head measuring 0.7 x 1.9 x 0.2 cm. Wound base is fibrogranular in nature. Negative probe to bone. Full-thickness wound to anterior right deluna measuring 1.5 x 1.3 x 0.1 cm. Wound base is granular nature. No sign of infection. Excisional debridement down to and including subcutaneous tissue with a number 5 mm dermal curette to the subfifth metatarsal head right foot done without incident. Predebridement measurement was 0.5 x 1.5 x 0.1 cm. Postdebridement measurement is 0.7 x 1.9 x 0.2 cm. Excisional debridement down to and including subcutaneous tissue with a number 5 mm dermal curette to the anterior right leg secondary to trauma. This was done without incident. Predebridement measurement was eschar. Posterior measures 1.5 x 1.3 x 0.1 cm. Muscle skeletal: No pain to palpation of full-thickness wounds to right lower extremity. No pain with calf pressure. Debridement Note Debridement Note Debridement Free Text: Excisional debridement down to and including subcutaneous tissue with a number 5 mm dermal curette to the subfifth metatarsal head right foot done without incident. Predebridement measurement was 0.5 x 1.5 x 0.1 cm. Postdebridement measurement is 0.7 x 1.9 x 0.2 cm. Excisional debridement down to and including subcutaneous tissue with a number 5 mm dermal curette to the anterior right leg secondary to trauma. This was done without incident. Predebridement measurement was eschar. Posterior measures 1.5 x 1.3 x 0.1 cm. 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 ) Arrival Mode Ambulatory Transfer Assistance None Patient Identification Verified (Name & Yes ) Patient Requires Transmission-Based No Precautions Vital Signs Temperature (97.8 F-99.1 F) 96.3 F L Temperature Source Temporal Pulse Rate (60-100) 80 Pulse Location Monitor Respiratory Rate (12-18) 18 Respiratory rate source Observation Oxygen Delivery Method Room Air Blood Pressure (90/60-120/80) 181/104 H Blood Pressure Mean (mm Hg) 129 Source Monitor Position Sitting Blood Pressure Location Left Arm History Since Last Visit- (Skip if this is Patient's initial visit) Have you changed medications since your No last visit? Any new allergies or adverse reactions No Had a fall/change in ADL's that may No increase risk of falls Signs or symptoms of abuse and/or No neglect since last visit Have you been in the hospital since your No last visit? Has dressing in place as prescribed Yes Has compression in place as prescribed N/A Has offloadiing in place as prescribed Yes Experienced any changes in pain level or No management Pain Scale: 0-10 Numeric Is Patient Pain Free? Yes DESMOND - Nurse 1 - General Ulcer Measurement Start: 09/26/25 09:01 Freq: Status: Active Protocol: Activity Type Activity Date Activity User E-sign Co-sign Detail Recorded Client Recorded Date Recorded By Document 09/26/25 09:02 RB [id number] 09/26/25 09:04 RB 09/26/25 09:02 Wound Center Nurse 1 RIGHT DELUNA -Combined with other wound No -Current Size (cm) - Length 0.1 -Current Size (cm) - Width 0.1 -Current Size (cm) - Depth 0.1 -Total Square Cm 0.01 -Photo Taken Yes -Tunneling No -Undermining/Tunneling No -Circular Undermining No -Exudate Amt Medium -Exudate Type Serosanguineous -Wound Margin Thickened -Granulation Amt Small (1-33%) -Granulation Quality [place] -Slough/Fibrin Yes -Necrosis Amt Medium (34-66%) -Necrotic Tissue Type Adherent Slough -Structure Exposed N/A -Texture (Milly-wound Skin Appearance) Assessed,Callus -Moisture (Milly-wound Skin Appearance) Assessed -Color (Milly-wound Skin Appearance) Assessed -Temperature (Milly-wound Skin No Abnormality Appearance) (Pt Warm) -Tenderness on Palpation (Milly-wound No Skin Appearance) -Ulcer Cleansing Wound Cleanser -Foul Odor after Cleansing No -Anesthetic Used 5% Lidocaine Gel 15. R plantar -Combined with other wound No -Current Size (cm) - Length 0.7 -Current Size (cm) - Width 1.1 -Current Size (cm) - Depth 0.1 -Total Square Cm 0.77 -Photo Taken Yes -Tunneling No -Undermining/Tunneling No -Circular Undermining No -Exudate Amt Medium -Exudate Type Serosanguineous -Wound Margin Distinct, Outline Attached -Granulation Amt Medium (34-66%) -Granulation Quality [place] -Slough/Fibrin Yes -Necrosis Amt Medium (34-66%) -Structure Exposed N/A -Texture (Milly-wound Skin Appearance) Callus -Moisture (Milly-wound Skin Appearance) Assessed -Color (Milly-wound Skin Appearance) Assessed -Temperature (Milly-wound Skin No Abnormality Appearance) (Pt Warm) -Tenderness on Palpation (Milly-wound No Skin Appearance) -Ulcer Cleansing Wound Cleanser -Foul Odor after Cleansing No -Anesthetic Used 5% Lidocaine Gel WC - Nurse 2 - General Ulcer CM Notes Start: 09/26/25 09:01 Freq: Status: Active Protocol: Activity Type Activity Date Activity User E-sign Co-sign Detail Recorded Client Recorded Date Recorded By Document 09/26/25 09:10 JF [id number] 09/26/25 09:14 JF 09/26/25 09:10 Wound Center Nurse 2 RIGHT DELUNA -Time 09:11 -Correct Patient Yes -Correct Side, Site, Position Yes -Correct Procedure Yes -Procedure Performed Yes -Type of Procedure Debridement -Tissue Removed Epidermis, Subcutaneous -Post Debridement (cm) - Length 1.5 -Post Debridement (cm) - Width 1.3 -Post Debridement (cm) - Depth 0.1 -Total Square (Post) (cm) 1.95 -Area of Debridement (cm) - Length 1.5 -Area of Debridement (cm) - Width 1.3 -Total Square (Area) (cm) 1.95 -Tunneling No -Undermining/Tunneling No -Circular Undermining No -Wound/Ulcer Outcome Not Healed -Ulcer Cleansing Rinsed/ Irrigated with Saline -Foul Odor after Cleansing No -Bioengineered Tissue No -Bleeding Controlled with Pressure -Treatment Response Procedure Tolerated Well -Offloading No -Debridement - Subq, 1st 20sq cm No 15. R plantar -Time 09:11 -Correct Patient Yes -Correct Side, Site, Position Yes -Correct Procedure Yes -Procedure Performed Yes -Type of Procedure Debridement -Clinical Debridement Subcutaneous -Tissue Removed Subcutaneous -Post Debridement (cm) - Length 0.7 -Post Debridement (cm) - Width 1.9 -Post Debridement (cm) - Depth 0.2 -Total Square (Post) (cm) 1.33 -Area of Debridement (cm) - Length 0.7 -Tunneling No -Undermining/Tunneling No -Circular Undermining No -Wound/Ulcer Outcome Not Healed -Ulcer Cleansing Rinsed/ Irrigated with Saline -Foul Odor after Cleansing No -Bioengineered Tissue No -Bleeding Controlled with Pressure -Treatment Response Procedure Tolerated Well -Offloading Yes -Type of Offloading Surgical Shoe -Debridement - Subq, 1st 20sq cm Yes Pain Scale: 0-10 Numeric Is Patient Pain Free? Yes WC - Nurse 3 - General Ulcer D/C NN Start: 09/26/25 09:01 Freq: Status: Active Protocol: Activity Type Activity Date Activity User E-sign Co-sign Detail Recorded Client Recorded Date Recorded By Document 09/26/25 09:28 CAMRON [id number] 09/26/25 09:30 CP 09/26/25 09:28 Wound Care Center Nurse 3 RIGHT DELUNA -Ulcer Cleansing Rinsed/ Irrigated with Saline -Other Dressing betadine -Primary Dressing Covered/Secured with Dry Gauze, Secured with Tape 15. R plantar -Other Dressing betadine -Primary Dressing Covered/Secured with Dry Gauze & Roll Gauze, Secured with Tape RLE -Tubular Bandage Single Layer -Size of Tubigrip Used Size D -Size D ($) 1 Pain Scale: 0-10 Numeric Is Patient Pain Free? 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 All findings were discussed with the patient. All questions were answered to the patient's satisfaction. Excisional debridement down to and including subcutaneous tissue with a number 5 mm dermal curette to the subfifth metatarsal head right foot done without incident. Predebridement measurement was 0.5 x 1.5 x 0.1 cm. Postdebridement measurement is 0.7 x 1.9 x 0.2 cm. Excisional debridement down to and including subcutaneous tissue with a number 5 mm dermal curette to the anterior right leg secondary to trauma. This was done without incident. Predebridement measurement was eschar. Posterior measures 1.5 x 1.3 x 0.1 cm. The right lower extremity wounds were wiped clean and patted dry. Betadine soaked gauze dry sterile dressing and compression wrap were donned. Patient continue daily dressing changes. He will continue strict blood sugar control. [facility]. Patient continue to check his feet twice per day. Follow-up at the wound care center with Dr. Colon in 1 week. (2) Non-pressure chronic ulcer of other part of right lower leg with fat layer exposed: CODE(S): L97.812 - Non-pressure chronic ulcer of other part of right lower leg with fat layer exposed (3) Charcot joint of right foot: CODE(S): M14.671 - Charcot's joint, right ankle and foot (4) Osteomyelitis of fourth toe of right foot: CODE(S): M86.9 - Osteomyelitis, unspecified
--- NOTE | 2025-09-27 12:01 | WC ---
PHOTO-RIGHT SHARP 09/26/25
--- NOTE | 2025-09-27 12:03 | WC ---
PHOTO-RIGHT PLANTAR FOOT 09/26/25
[2025-10-03 08:13] VITALS: BP 159/78; PULSE 105; RESP 16; TEMP 36.3
--- NOTE | 2025-10-03 08:59 | PN.PCM_ITS ---
History of Present Illness Date of Service: 10/03/25 Chief Complaint: Ulcerations of the right pretibial and lateral calf, right lateral foot History of Wound: David is a 54 year old male that presents to the wound center for evaluation and treatment of an ulcer of his right foot. The ulcer appeared approximately a week ago. He noticed blood coming from his shoe and there was a blister that had broken open. He has been applying gauze and washing with soap daily to treat the ulcer and was seen at urgent care and started on doxycycline. A wound culture was taken and results showed multiple bacteria with Pseudomonas, Staph and Strep. Anaerobic culture is still pending. He denies systemic symptoms such as fever, chills, erythema, odor. He is struggling financially to afford supplies, medications and taking care of his home and financial responsibilities. He works at the [employer] and he is on his feet all the time there. His last A1C was 01/2025 and was 13.2 %. He is a very poorly controlled diabetic on insulin. He does not have diabetic shoes. He does see Dr. Ozuna for podiatry for diabetic foot exams. 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 He also had repeat venous testing 04/08/23 which showed incompetence and vascular surgery was considered but was not done at that time. He has not been able to place compression because he is unable to bend to pull on compression stockings due to arthritis in his back. He is not able to wrap with RADHA bandages either. Circaids were tried previously but he was unable to do this as well. He has been wearing tubigrips for compression. He states he still has issues getting them on at times when his back is flared up. He has chronic lymphedema. Progress of Wound: Improving full-thickness wound to the right lower extremity. Subjective Subjective Patient is a 55-year-old diabetic male presenting to the wound care center today follow-up evaluation full-thickness wounds to right lower extremity at the level of the anterior leg and plantar right foot. Patient has been compliant with dressing changes. He admits that the wound is improving. I did ask him about following up in [email or web address] regarding his diabetic shoes and custom inserts and he is waiting to have the money to pay them for the shoe gear. Otherwise his blood sugars well-controlled. He denies any trauma. Denies constitutional symptoms. No other pedal complaints at this time. Objective Data Objective Data Vital Signs: Vital Signs Temp Pulse Resp BP O2 Del Method 97.4 F L 105 H 16 159/78 H Room Air 10/03/25 08:13 10/03/25 08:13 10/03/25 08:13 10/03/25 08:13 09/26/25 09:02 Oxygen Delivery Method Room Air Lab / Micro Data Micro: Microbiology 08/29/25 10:40 Wound - Right Foot Gram Stain - Final 08/29/25 10:40 Wound - Right Foot Wound Culture - Final Streptococcus agalactiae (B) Staphylococcus aureus 08/29/25 10:40 Wound - Right Foot Anaerobic Culture - Final No anaerobic bacteria isolated. Physical Exam Narrative Vascular: DP and PT pulses are palpable to the right lower extremity. CFT is brisk. Skin temperature gradient is warm to warm from proximal ankles to distal digits right lower extremity. No erythema. Neurological: Light touch is intact. Protective station is absent. Dermatological Full-thickness wound to the plantar subfifth metatarsal head measuring 1.9 x 2.0 x 0.2 cm. Wound base is fibrogranular in nature. Negative probe to bone. Full-thickness wound to anterior right deluna measuring 1.0 x 0.9 x 0.1 cm. Wound base is granular nature. No sign of infection. Excisional debridement down to and including subcutaneous tissue with a number 5 mm dermal curette to the subfifth metatarsal head right foot done without incid ent. Predebridement measurement was 1.7 x 1.8 x 0.1 cm. Postdebridement measurement is 1.9 x 2.0 x 0.2 cm. Excisional debridement down to and including subcutaneous tissue with a number 5 mm dermal curette to the anterior right leg secondary to trauma. This was done without incident. Predebridement measurement was 0.9 x 0.8 x 0.1 cm. Posterior measures 1.0 x 0.9 x 0.1 cm. Muscle skeletal: No pain to palpation of full-thickness wounds to right lower extremity. No pain with calf pressure. Debridement Note Debridement Note Debridement Free Text: Excisional debridement down to and including subcutaneous tissue with a number 5 mm dermal curette to the subfifth metatarsal head right foot done without incident. Predebridement measurement was 1.7 x 1.8 x 0.1 cm. Postdebridement measurement is 1.9 x 2.0 x 0.2 cm. Excisional debridement down to and including subcutaneous tissue with a number 5 mm dermal curette to the anterior right leg secondary to trauma. This was done without incident. Predebridement measurement was 0.9 x 0.8 x 0.1 cm. Posterior measures 1.0 x 0.9 x 0.1 cm. Post-Debridement Measurements and Additional Note: Post-Debridement Measurements/Treatment - Nurse 1 - General Ulcer Assessment Start: 09/26/25 09:01 Freq: Status: Active Protocol: MART Activity Type Activity Date Activity User E-sign Co-sign Detail Recorded Client Recorded Date Recorded By Document 09/26/25 09:02 RB [id number] 09/26/25 09:04 RB Document 10/03/25 08:13 JF 000 10/03/25 08:15 JF 09/26/25 10/03/25 09:02 08:13 - Today's Visit Information Type of service Follow-up Visit Follow-up Visit (Physician/CHIEF SUSTAINABILITY OFFICER (Physician/CHIEF SUSTAINABILITY OFFICER ) ) Arrival Mode Ambulatory Ambulatory Transfer Assistance None Patient Identification Verified (Name & Yes Yes ) Patient Requires Transmission-Based No No Precautions Finger Stick Blood Sugar(mg/dl) (if 145 indicated): Blood Sugar Stated by Patient Vital Signs Temperature (97.8 F-99.1 F) 96.3 F L 97.4 F L Temperature Source Temporal Oral Pulse Rate (60-100) 80 105 H Pulse Location Monitor Monitor Respiratory Rate (12-18) 18 16 Respiratory rate source Observation Observation Oxygen Delivery Method Room Air Blood Pressure (90/60-120/80) 181/104 H 159/78 H Blood Pressure Mean (mm Hg) 129 105 Source Monitor Manual Position Sitting Semi-Fowlers Blood Pressure Location Left Arm Left Arm History Since Last Visit- (Skip if this is Patient's initial visit) Have you changed medications since your No Yes last visit? Any new allergies or adverse reactions No No Had a fall/change in ADL's that may No No increase risk of falls Signs or symptoms of abuse and/or No No neglect since last visit Have you been in the hospital since your No No last visit? Has dressing in place as prescribed Yes Yes Has compression in place as prescribed N/A Yes Has offloadiing in place as prescribed Yes N/A Experienced any changes in pain level or No No management Left Footwear Regular Shoe Right Footwear Regular Shoe Pain Scale: 0-10 Numeric Is Patient Pain Free? Yes Yes WC - Nurse 1 - General Ulcer Measurement Start: 09/26/25 09:01 Freq: Status: Active Protocol: Activity Type Activity Date Activity User E-sign Co-sign Detail Recorded Client Recorded Date Recorded By Document 09/26/25 09:02 RB [id number] 09/26/25 09:04 RB Document 10/03/25 08:13 JF 000 10/03/25 08:15 JF 09/26/25 10/03/25 09:02 08:13 Wound Center Nurse 1 RIGHT DELUNA -Combined with other wound No No -Current Size (cm) - Length 0.1 0 -Current Size (cm) - Width 0.1 0 -Current Size (cm) - Depth 0.1 0 -Total Square Cm 0.01 0 -Photo Taken Yes Yes -Epithelialization Large 67-100% -Tunneling No No -Undermining/Tunneling No No -Circular Undermining No No -Exudate Amt Medium -Exudate Type Serosanguineous -Wound Margin Thickened -Granulation Amt Small (1-33%) -Granulation Quality [place] -Slough/Fibrin Yes -Necrosis Amt Medium (34-66%) -Necrotic Tissue Type Adherent Slough -Structure Exposed N/A -Texture (Milly-wound Skin Appearance) Assessed,Callus -Moisture (Milly-wound Skin Appearance) Assessed -Color (Milly-wound Skin Appearance) Assessed -Temperature (Milly-wound Skin No Abnormality Appearance) (Pt Warm) -Tenderness on Palpation (Milly-wound No Skin Appearance) -Ulcer Cleansing Wound Cleanser -Foul Odor after Cleansing No -Anesthetic Used 5% Lidocaine Gel 15. R plantar -Combined with other wound No No -Current Size (cm) - Length 0.7 2.6 -Current Size (cm) - Width 1.1 1.4 -Current Size (cm) - Depth 0.1 0.1 -Total Square Cm 0.77 3.64 -Photo Taken Yes Yes -Epithelialization Large 67-100% -Tunneling No No -Undermining/Tunneling No No -Circular Undermining No No -Exudate Amt Medium Medium -Exudate Type Serosanguineous Serosanguineous -Wound Margin Distinct, Thickened & Outline Rolled Under Attached -Granulation Amt Medium (34-66%) Large (67-100%) -Granulation Quality [place] Red -Slough/Fibrin Yes Yes -Necrosis Amt Medium (34-66%) Small (1-33%) -Necrotic Tissue Type Adherent Slough -Structure Exposed N/A N/A -Texture (Milly-wound Skin Appearance) Callus Assessed,Callus -Moisture (Milly-wound Skin Appearance) Assessed Assessed,Dry/ Scaly -Color (Milly-wound Skin Appearance) Assessed Assessed -Temperature (Milly-wound Skin No Abnormality No Abnormality Appearance) (Pt Warm) (Pt Warm) -Tenderness on Palpation (Milly-wound No No Skin Appearance) -Ulcer Cleansing Wound Cleanser Rinsed/ Irrigated with Saline -Foul Odor after Cleansing No No -Anesthetic Used 5% Lidocaine 5% Lidocaine Gel Gel Lower Limb Edema Present NA WC - Nurse 2 - General Ulcer CM Notes Start: 09/26/25 09:01 Freq: Status: Active Protocol: Activity Type Activity Date Activity User E-sign Co-sign Detail Recorded Client Recorded Date Recorded By Document 09/26/25 09:10 [id number] 09/26/25 09:14 Document 10/03/25 08:47 JF 000 10/03/25 08:49 JF 09/26/25 10/03/25 09:10 08:47 Wound Center Nurse 2 RIGHT DELUNA -Time 09:11 08:47 -Correct Patient Yes Yes -Correct Side, Site, Position Yes Yes -Correct Procedure Yes Yes -Procedure Performed Yes Yes -Type of Procedure Debridement Debridement -Clinical Debridement Subcutaneous -Tissue Removed Epidermis, Subcutaneous Subcutaneous -Post Debridement (cm) - Length 1.5 1.0 -Post Debridement (cm) - Width 1.3 0.9 -Post Debridement (cm) - Depth 0.1 0.1 -Total Square (Post) (cm) 1.95 0.90 -Area of Debridement (cm) - Length 1.5 1.0 -Area of Debridement (cm) - Width 1.3 0.9 -Total Square (Area) (cm) 1.95 0.90 -Tunneling No No -Undermining/Tunneling No No -Circular Undermining No No -Wound/Ulcer Outcome Not Healed Not Healed -Ulcer Cleansing Rinsed/ Rinsed/ Irrigated with Irrigated with Saline Saline -Foul Odor after Cleansing No No -Bioengineered Tissue No No -Bleeding Controlled with Pressure Pressure -Treatment Response Procedure Procedure Tolerated Well Tolerated Well -Offloading No No -Debridement - Subq, 1st 20sq cm No No 15. R plantar -Time 09:11 08:48 -Correct Patient Yes Yes -Correct Side, Site, Position Yes Yes -Correct Procedure Yes Yes -Procedure Performed Yes Yes -Type of Procedure Debridement Debridement -Clinical Debridement Subcutaneous Subcutaneous -Tissue Removed Subcutaneous Subcutaneous -Post Debridement (cm) - Length 0.7 1.9 -Post Debridement (cm) - Width 1.9 2 -Post Debridement (cm) - Depth 0.2 0.2 -Total Square (Post) (cm) 1.33 3.8 -Area of Debridement (cm) - Length 0.7 1.9 -Area of Debridement (cm) - Width 2.0 -Total Square (Area) (cm) 3.80 -Tunneling No No -Undermining/Tunneling No No -Circular Undermining No No -Wound/Ulcer Outcome Not Healed Not Healed -Ulcer Cleansing Rinsed/ Rinsed/ Irrigated with Irrigated with Saline Saline -Foul Odor after Cleansing No No -Bioengineered Tissue No No -Bleeding Controlled with Pressure Pressure -Treatment Response Procedure Procedure Tolerated Well Tolerated Well -Offloading Yes Yes -Type of Offloading Surgical Shoe Surgical Shoe -Debridement - Subq, 1st 20sq cm Yes Yes Pain Scale: 0-10 Numeric Is Patient Pain Free? Yes Yes WC - Nurse 3 - General Ulcer D/C NN Start: 09/26/25 09:01 Freq: Status: Active Protocol: Activity Type Activity Date Activity User E-sign Co-sign Detail Recorded Client Recorded Date Recorded By Document 09/26/25 09:28 CP [id number] 09/26/25 09:30 CP 09/26/25 09:28 Wound Care Center Nurse 3 RIGHT DELUNA -Ulcer Cleansing Rinsed/ Irrigated with Saline -Other Dressing betadine -Primary Dressing Covered/Secured with Dry Gauze, Secured with Tape 15. R plantar -Other Dressing betadine -Primary Dressing Covered/Secured with Dry Gauze & Roll Gauze, Secured with Tape RLE -Tubular Bandage Single Layer -Size of Tubigrip Used Size D -Size D ($) 1 Pain Scale: 0-10 Numeric Is Patient Pain Free? 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 All findings were discussed with the patient. All questions were answered to the patient's satisfaction. Excisional debridement down to and including subcutaneous tissue with a number 5 mm dermal curette to the subfifth metatarsal head right foot done without incident. Predebridement measurement was 1.7 x 1.8 x 0.1 cm. Postdebridement measurement is 1.9 x 2.0 x 0.2 cm. Excisional debridement down to and including subcutaneous tissue with a number 5 mm dermal curette to the anterior right leg secondary to trauma. This was done without incident. Predebridement measurement was 0.9 x 0.8 x 0.1 cm. Posterior measures 1.0 x 0.9 x 0.1 cm. The bilateral lower extremities were right cleaned and patted dry. We will stop using Betadine paint and move forward with [place] to be changed every other day with dry sterile dressing and light compression wrap. Educated the patient on the importance of obtaining the shoe gear from [employer] which she is understanding of. Patient will continue strict blood sugar control Follow-up at the wound care center with Dr. Colon in 1 week. (2) Non-pressure chronic ulcer of other part of right lower leg with fat layer exposed: CODE(S): L97.812 - Non-pressure chronic ulcer of other part of right lower leg with fat layer exposed (3) Charcot joint of right foot: CODE(S): M14.671 - Charcot's joint, right ankle and foot (4) Osteomyelitis of fourth toe of right foot: CODE(S): M86.9 - Osteomyelitis, unspecified
--- NOTE | 2025-10-04 09:07 | WC ---
PHOTO-RIGHT SHARP 10/03/25
--- NOTE | 2025-10-04 09:10 | WC ---
PHOTO-RIGHT PLANT FOOT 10/03/25
[2025-10-10 08:21] VITALS: BP 174/91; PULSE 77; RESP 17; TEMP 36
--- NOTE | 2025-10-10 09:31 | PN.PCM_ITS ---
History of Present Illness Date of Service: 10/10/25 Chief Complaint: Ulcerations of the right pretibial and lateral calf, right lateral foot History of Wound: David is a 54 year old male that presents to the wound center for evaluation and treatment of an ulcer of his right foot. The ulcer appeared approximately a week ago. He noticed blood coming from his shoe and there was a blister that had broken open. He has been applying gauze and washing with soap daily to treat the ulcer and was seen at urgent care and started on doxycycline. A wound culture was taken and results showed multiple bacteria with Pseudomonas, Staph and Strep. Anaerobic culture is still pending. He denies systemic symptoms such as fever, chills, erythema, odor. He is struggling financially to afford supplies, medications and taking care of his home and financial responsibilities. 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 His last A1C was 01/2025 and was 13.2 %. He is a very poorly controlled diabetic on insulin. He does not have diabetic shoes. He does see Dr. Ozuna for podiatry for diabetic foot exams. 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 He also had repeat venous testing 04/08/23 which showed incompetence and vascular surgery was considered but was not done at that time. He has not been able to place compression because he is unable to bend to pull on compression stockings due to arthritis in his back. He is not able to wrap with RADHA bandages either. Circaids were tried previously but he was unable to do this as well. He has been wearing tubigrips for compression. He states he still has issues getting them on at times when his back is flared up. He has chronic lymphedema. Progress of Wound: Improving full-thickness wound to the right lower extremity. Subjective Subjective Patient is a 55-year-old diabetic male presenting to wound care center today follow-up evaluation of full-thickness wounds to the right leg and plantar right foot. Patient states the leg wound is now healed. His blood sugar today was 145 mg/dL. He has been doing every other day dressing changes with moist Indy dry sterile dressing compression wrap. He is working a lot on his feet. He has not gotten his diabetic shoes and custom inserts from [employer] He denies trauma. Denies constitutional symptoms. No other pedal complaints at this time. Objective Data Objective Data Vital Signs: Vital Signs Temp Pulse Resp BP O2 Del Method 96.8 F L 77 17 174/91 H Room Air 10/10/25 08:21 10/10/25 08:21 10/10/25 08:21 10/10/25 08:21 10/10/25 08:21 Oxygen Delivery Method Room Air Lab / Micro Data Micro: Microbiology 08/29/25 10:40 Wound - Right Foot Gram Stain - Final 08/29/25 10:40 Wound - Right Foot Wound Culture - Final Streptococcus agalactiae (B) Staphylococcus aureus 08/29/25 10:40 Wound - Right Foot Anaerobic Culture - Final No anaerobic bacteria isolated. Physical Exam Narrative Vascular: DP and PT pulses are palpable to the right lower extremity. CFT is brisk. Skin temperature gradient is warm to warm from proximal ankles to distal digits right lower extremity. No erythema. Neurological: Light touch is intact. Protective station is absent. Dermatological Full-thickness wound to the plantar subfifth metatarsal head measuring 1.6 x 2.0 x 0.2 cm. Wound base is fibrogranular in nature. Negative probe to bone. Full-thickness wound to anterior right deluna is now healed. Excisional debridement down to and including subcutaneous tissue with a number 5 mm dermal curette to the subfifth metatarsal head right foot done without incident. Predebridement measurement was 1.4 x 1.9 x 0.1 cm. Postdebridement measurement is 1.6 x 2.0 x 0.2 cm. Muscle skeletal: No pain to palpation of full-thickness wounds to right lower extremity. No pain with calf pressure. Debridement Note Debridement Note Debridement Free Text: Excisional debridement down to and including subcutaneous tissue with a number 5 mm dermal curette to the subfifth metatarsal head right foot done without incident. Predebridement measurement was 1.4 x 1.9 x 0.1 cm. Postdebridement measurement is 1.6 x 2.0 x 0.2 cm. 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 ) ) Arrival Mode Ambulatory Ambulatory Ambulatory Transfer Assistance None Patient Identification Verified (Name & Yes Yes Yes ) Patient Requires Transmission-Based No No No Precautions Safety Precautions Fall Prevention Finger Stick Blood Sugar(mg/dl) (if 145 indicated): Blood Sugar Stated by Patient Vital Signs Temperature (97.8 F-99.1 F) 96.3 F L 97.4 F L 96.8 F L Temperature Source Temporal Oral Temporal Pulse Rate (60-100) 80 105 H 77 Pulse Location Monitor Monitor Monitor Respiratory Rate (12-18) 18 16 17 Respiratory rate source Observation Observation Observation Oxygen Delivery Method Room Air Room Air Blood Pressure (90/60-120/80) 181/104 H 159/78 H 174/91 H Blood Pressure Mean (mm Hg) 129 105 118 Source Monitor Manual Monitor Position Sitting Semi-Fowlers Sitting Blood Pressure Location Left Arm Left Arm Right Arm History Since Last Visit- (Skip if this is Patient's initial visit) Have you changed medications since your No Yes No last visit? Any new allergies or adverse reactions No No No Had a fall/change in ADL's that may No No No increase risk of falls Signs or symptoms of abuse and/or No No No neglect since last visit Have you been in the hospital since your No No No last visit? Has dressing in place as prescribed Yes Yes No Has compression in place as prescribed N/A Yes Yes Has offloadiing in place as prescribed Yes N/A Yes Experienced any changes in pain level or No No No management Left Footwear Regular Shoe Surgical Shoe with pressure relief insole Right Footwear Regular Shoe Regular Shoe Pain Scale: 0-10 Numeric Is Patient Pain Free? Yes Yes Yes - Nurse 1 - General Ulcer Measurement Start: 09/26/25 09:01 Freq: Status: Active Protocol: Activity Type Activity Date Activity User E-sign Co-sign Detail Recorded Client Recorded Date Recorded By Document 09/26/25 09:02 RB [id number] 09/26/25 09:04 RB Document 10/03/25 08:13 JF 000 10/03/25 08:15 JF Document 10/10/25 08:21 TS [id number] 10/10/25 08:28 TS 09/26/25 10/03/25 10/10/25 09:02 08:13 08:21 Wound Center Nurse 1 RIGHT DELUNA -Combined with other wound No No No -Current Size (cm) - Length 0.1 0 0.5 -Current Size (cm) - Width 0.1 0 0.5 -Current Size (cm) - Depth 0.1 0 0.1 -Total Square Cm 0.01 0 0.25 -Date of Last Picture (Recall this 10/10/25 field) -Photo Taken Yes Yes Yes -Epithelialization Large 67-100% -Tunneling No No No -Undermining/Tunneling No No No -Circular Undermining No No No -Exudate Amt Medium None Present -Exudate Type Serosanguineous -Wound Margin Thickened Distinct, Outline Attached -Granulation Amt Small (1-33%) Large (67-100%) -Granulation Quality [place],Red -Slough/Fibrin Yes No -Necrosis Amt Medium (34-66%) -Necrotic Tissue Type Adherent Slough -Structure Exposed N/A None/Limited to Skin Breakdown -Texture (Milly-wound Skin Appearance) Assessed,Callus Assessed -Moisture (Milly-wound Skin Appearance) Assessed Assessed -Color (Milly-wound Skin Appearance) Assessed Assessed -Temperature (Milly-wound Skin No Abnormality No Abnormality Appearance) (Pt Warm) (Pt Warm) -Tenderness on Palpation (Milly-wound No Skin Appearance) -Ulcer Cleansing Wound Cleanser Soap and Water -Foul Odor after Cleansing No No -Anesthetic Used 5% Lidocaine 5% Lidocaine Gel Gel 15. R plantar -Combined with other wound No No No -Current Size (cm) - Length 0.7 2.6 1.5 -Current Size (cm) - Width 1.1 1.4 1.5 -Current Size (cm) - Depth 0.1 0.1 0.1 -Total Square Cm 0.77 3.64 2.25 -Date of Last Picture (Recall this 10/10/25 field) -Photo Taken Yes Yes Yes -Epithelialization Large 67-100% -Tunneling No No No -Undermining/Tunneling No No -Circular Undermining No No No -Exudate Amt Medium Medium Small -Exudate Type Serosanguineous Serosanguineous Serosanguineous -Wound Margin Distinct, Thickened & Distinct, Outline Rolled Under Outline Attached Attached -Granulation Amt Medium (34-66%) Large (67-100%) Medium (34-66%) -Granulation Quality [place],Red -Slough/Fibrin Yes Yes -Necrosis Amt Medium (34-66%) Small (1-33%) Small (1-33%) -Necrotic Tissue Type Adherent Slough Adherent Slough -Structure Exposed N/A N/A None/Limited to Skin Breakdown -Texture (Milly-wound Skin Appearance) Callus Assessed,Callus Assessed -Moisture (Milly-wound Skin Appearance) Assessed Assessed,Dry/ Assessed Scaly -Color (Milly-wound Skin Appearance) Assessed Assessed Assessed -Temperature (Milly-wound Skin No Abnormality No Abnormality No Abnormality Appearance) (Pt Warm) (Pt Warm) (Pt Warm) -Tenderness on Palpation (Milly-wound No No Skin Appearance) -Ulcer Cleansing Wound Cleanser Rinsed/ Soap and Water Irrigated with Saline -Foul Odor after Cleansing No No No -Anesthetic Used 5% Lidocaine 5% Lidocaine 5% Lidocaine Gel Gel Gel Lower Limb Edema Present NA No Point of measurement (cm from the medial 35 instep) Point of Measurement (cm from the medial 23 instep) WC - Nurse 2 - General Ulcer CM Notes Start: 09/26/25 09:01 Freq: Status: Active Protocol: Activity Type Activity Date Activity User E-sign Co-sign Detail Recorded Client Recorded Date Recorded By Document 09/26/25 09:10 LATRELL [id number] 09/26/25 09:14 JF Document 10/03/25 08:47 JF 000 10/03/25 08:49 JF Document 10/10/25 08:35 JF [id number] 10/10/25 08:37 JF 09/26/25 10/03/25 10/10/25 09:10 08:47 08:35 Wound Center Nurse 2 RIGHT DELUNA -Time 09:11 08:47 08:35 -Correct Patient Yes Yes Yes -Correct Side, Site, Position Yes Yes No -Correct Procedure Yes Yes No -Procedure Performed Yes Yes No -Type of Procedure Debridement Debridement Debridement -Clinical Debridement Subcutaneous -Tissue Removed Epidermis, Subcutaneous Subcutaneous -Post Debridement (cm) - Length 1.5 1.0 0 -Post Debridement (cm) - Width 1.3 0.9 0 -Post Debridement (cm) - Depth 0.1 0.1 0 -Total Square (Post) (cm) 1.95 0.90 0 -Area of Debridement (cm) - Length 1.5 1.0 0 -Area of Debridement (cm) - Width 1.3 0.9 0 -Total Square (Area) (cm) 1.95 0.90 0 -Tunneling No No -Undermining/Tunneling No No No -Circular Undermining No No -Wound/Ulcer Outcome Not Healed Not Healed Healed- Epithelialized -Ulcer Cleansing Rinsed/ Rinsed/ Irrigated with Irrigated with Saline Saline -Foul Odor after Cleansing No No -Bioengineered Tissue No No -Bleeding Controlled with Pressure Pressure -Treatment Response Procedure Procedure Tolerated Well Tolerated Well -Offloading No No -Debridement - Subq, 1st 20sq cm No No 15. R plantar -Time 09:11 08:48 08:36 -Correct Patient Yes Yes Yes -Correct Side, Site, Position Yes Yes Yes -Correct Procedure Yes Yes Yes -Procedure Performed Yes Yes Yes -Type of Procedure Debridement Debridement Debridement -Clinical Debridement Subcutaneous Subcutaneous Subcutaneous -Tissue Removed Subcutaneous Subcutaneous Subcutaneous -Post Debridement (cm) - Length 0.7 1.9 1.6 -Post Debridement (cm) - Width 1.9 2 2.0 -Post Debridement (cm) - Depth 0.2 0.2 0.2 -Total Square (Post) (cm) 1.33 3.8 3.20 -Area of Debridement (cm) - Length 0.7 1.9 1.6 -Area of Debridement (cm) - Width 2.0 2.0 -Total Square (Area) (cm) 3.80 3.20 -Tunneling No No No -Undermining/Tunneling No No No -Circular Undermining No No No -Wound/Ulcer Outcome Not Healed Not Healed Not Healed -Ulcer Cleansing Rinsed/ Rinsed/ Rinsed/ Irrigated with Irrigated with Irrigated with Saline Saline Saline -Foul Odor after Cleansing No No No -Bioengineered Tissue No No No -Bleeding Controlled with Pressure Pressure Pressure -Treatment Response Procedure Procedure Procedure Tolerated Well Tolerated Well Tolerated Well -Offloading Yes Yes Yes -Type of Offloading Surgical Shoe Surgical Shoe Surgical Shoe -Debridement - Subq, 1st 20sq cm Yes Yes Yes Pain Scale: 0-10 Numeric Is Patient Pain Free? Yes Yes Yes - Nurse 3 - General Ulcer D/C NN Start: 09/26/25 09:01 Freq: Status: Active Protocol: Activity Type Activity Date Activity User E-sign Co-sign Detail Recorded Client Recorded Date Recorded By Document 09/26/25 09:28 CP [id number] 09/26/25 09:30 CP Document 10/03/25 08:57 TS [id number] 10/03/25 09:00 TS Document 10/10/25 08:48 JF [id number] 10/10/25 08:49 JF 09/26/25 10/03/25 10/10/25 09:28 08:57 08:48 Wound Care Center Nurse 3 RIGHT DELUNA -Ulcer Cleansing Rinsed/ Rinsed/ Irrigated with Irrigated with Saline Saline -Primary Dressing Applied Promogran Indy Matter -Other Dressing betadine -Primary Dressing Covered/Secured with Dry Gauze, Dry Gauze, Secured with Secured with Tape Tape -Promogran Indy Matter 2 15. R plantar -Ulcer Cleansing Rinsed/ Rinsed/ Irrigated with Irrigated with Saline Saline -Foul Odor after Cleansing No -Primary Dressing Applied Promogran Promogran Indy Matter Indy Matter -Other Dressing betadine -Primary Dressing Covered/Secured with Dry Gauze & Dry Gauze, Roll Gauze, Secured with Secured with Tape Tape -Promogran Indy Matter 0 1 RLE -Lotion applied to leg before No compression wrap -Tubular Bandage Single Layer Single Layer Single Layer -Size of Tubigrip Used Size D Size D Size D -Size D ($) 1 1 1 Pain Scale: 0-10 Numeric Is Patient Pain Free? Yes Yes Yes - Visit Discharge Discharge Condition Stable Stable Stable Ambulatory Status Ambulatory Ambulatory Ambulatory Transportation Private Auto Private Auto Private Auto Medication Reconcilliation completed & No Yes provided to patient/care provider Clinical Summary of Care Provided Yes Yes Yes Assessment/Plan Assessment/Plan (1) Non-pressure chronic ulcer of other part of right foot with fat layer exposed: CODE(S): L97.512 - Non-pressure chronic ulcer of other part of right foot with fat layer exposed PLAN: Patient was examined and evaluated. All findings were discussed with the patient. All questions were answered to the patient's satisfaction. Excisional debridement down to and including subcutaneous tissue with a number 5 mm dermal curette to the subfifth metatarsal head right foot done without incident. Predebridement measurement was 1.4 x 1.9 x 0.1 cm. Postdebridement measurement is 1.6 x 2.0 x 0.2 cm. The bilateral lower extremities were right cleaned and patted dry. Indy was applied to the right foot ulcer and will be changed every other day with dry sterile dressing and light compression wrap. Educated the patient on the importance of obtaining the shoe gear from [employer] which she is understanding of. Patient will continue strict blood sugar control Follow-up at the wound care center with Dr. Colon in 1 week. (2) Charcot joint of right foot: CODE(S): M14.671 - Charcot's joint, right ankle and foot (3) Osteomyelitis of fourth toe of right foot: CODE(S): M86.9 - Osteomyelitis, unspecified
--- NOTE | 2025-10-11 08:50 | WC ---
PHOTO-RIGHT SHARP 10/10/25
--- NOTE | 2025-10-11 08:53 | WC ---
PHOTO-RIGHT PLANTAR 10/10/25
== END 2025-10-21 23:59 | disposition home or self-care (01) ==
LOC: WC 08:30
PROVIDERS: PCP Family Medicine; Referring Provider Family Medicine; Visit Provider Podiatrist Foot & Ankle Surgery
DX: E11.621 Type 2 diabetes mellitus with foot ulcer (principal); L97.512 Non-pressure chronic ulcer of other part of right foot with fat layer exposed; L97.812 Non-pressure chronic ulcer of other part of right lower leg with fat layer exposed; M86.9 Osteomyelitis, unspecified; E11.69 Type 2 diabetes mellitus with other specified complication; I89.0 Lymphedema, not elsewhere classified; M14.671 Charcot's joint, right ankle and foot
CPT/HCPCS: 11042

== ENCOUNTER → 2025-10-29 | Outpatient (CLI) | payer OTHER, SELFPAY ==
--- NOTE | 2025-10-29 15:03 | RAD_ITS ---
PROCEDURE: LUMBAR SPINE 2 OR 3 VIEWS 10/29/2025 REASON FOR EXAM: SPONDYLOSIS TECHNIQUE: Procedure Code: RADSPLL Modality: DX Procedure: LUMBAR SPINE 2 OR 3 VIEWS COMPARISON: CT abdomen pelvis dated 10/13/2023 FINDINGS: Vertebrae: Vertebral body height loss noted at L1 and L4 vertebral body. Postprocedural changes of kyphoplasty at L4 with cement leak noted in the L3-4 and L4-5 disc spaces. Discs: Advanced multilevel disc space narrowing with endplate osteophytes. Alignment: Lumbar lordosis is maintained. No significant lateral curvature. RAD/Lumbar Spine 2 or 3 Views IMPRESSION: Vertebral body height loss noted at L1 and L4 vertebral body. Postprocedural ch anges of kyphoplasty at L4 with cement leak noted in the L3-4 and L4-5 disc spaces. Advanced discogenic degenerative changes. Reading Location: [facility]
== END | disposition home or self-care (01) ==
LOC: RAD 15:02
PROVIDERS: PCP Family Medicine; Referring Provider Anesthesiology Pain Medicine; Visit Provider Anesthesiology Pain Medicine
DX: M47.816 Spondylosis without myelopathy or radiculopathy, lumbar region (principal)
CPT/HCPCS: 72100

== ENCOUNTER → 2025-11-08 | Outpatient (CLI) | payer OTHER, SELFPAY | END | disposition home or self-care (01) | LOC: LAB 08:07 | PROVIDERS: PCP Family Medicine; Referring Provider Podiatrist Foot & Ankle Surgery; Visit Provider Podiatrist Foot & Ankle Surgery | DX: E11.9 Type 2 diabetes mellitus without complications (principal) | CPT/HCPCS: 36415; 83036 ==